=== PATIENT | female | born 1960 | race Caucasian/White ===

== ENCOUNTER → 2019-06-24 11:24 | Outpatient (BNVA) | payer MEDICAID, SELFPAY | PROVIDERS: Family Provider Nurse Practitioner Family; PCP Nurse Practitioner Family; Visit Provider Nurse Practitioner Family | DX: R05 Cough (principal); J06.9 Acute upper respiratory infection, unspecified; G47.30 Sleep apnea, unspecified | CPT/HCPCS: 87880 ==

== ENCOUNTER 2019-06-29 12:00 | Outpatient (CLI) | payer MEDICAID, SELFPAY | END 2019-06-29 12:01 | disposition home or self-care (01) | PROVIDERS: Family Provider Nurse Practitioner Family; PCP Nurse Practitioner Family; Visit Provider Nurse Practitioner Family | DX: G47.30 Sleep apnea, unspecified (principal) | CPT/HCPCS: 94762 ==

== ENCOUNTER → 2019-06-30 15:34 | Outpatient (BNVA) | payer MEDICAID, SELFPAY | PROVIDERS: Family Provider Nurse Practitioner Family; PCP Nurse Practitioner Family; Visit Provider Nurse Practitioner Family | DX: J06.9 Acute upper respiratory infection, unspecified (principal); R05 Cough; E11.42 Type 2 diabetes mellitus with diabetic polyneuropathy | CPT/HCPCS: 87804 ==

== ENCOUNTER → 2019-07-01 13:56 | Outpatient (BNVA) | payer MEDICAID, SELFPAY | PROVIDERS: Family Provider Nurse Practitioner Family; PCP Nurse Practitioner Family; Visit Provider Nurse Practitioner | DX: F43.12 Post-traumatic stress disorder, chronic (principal); F31.81 Bipolar II disorder; F17.218 Nicotine dependence, cigarettes, with other nicotine-induced disorders; G47.30 Sleep apnea, unspecified; F12.20 Cannabis dependence, uncomplicated | CPT/HCPCS: 99213 ==

== ENCOUNTER → 2019-08-25 12:15 | Outpatient (BNVA) | payer MEDICARE, SELFPAY | PROVIDERS: Family Provider Nurse Practitioner Family; PCP Nurse Practitioner Family; Visit Provider Nurse Practitioner Family | DX: E11.22 Type 2 diabetes mellitus with diabetic chronic kidney disease (principal); I12.9 Hypertensive chronic kidney disease with stage 1 through stage 4 chronic kidney disease, or unspecified chronic kidney disease; E78.5 Hyperlipidemia, unspecified; E11.42 Type 2 diabetes mellitus with diabetic polyneuropathy; I10 Essential (primary) hypertension; Z09 Encounter for follow-up examination after completed treatment for conditions other than malignant neoplasm; J44.1 Chronic obstructive pulmonary disease with (acute) exacerbation; E11.65 Type 2 diabetes mellitus with hyperglycemia | CPT/HCPCS: 80053; 80061; 82043; 82044; 83036 ==

== ENCOUNTER → 2019-09-18 08:45 | Outpatient (BNVA) | payer MEDICARE, MEDICAID, SELFPAY | PROVIDERS: Family Provider Nurse Practitioner Family; PCP Nurse Practitioner Family; Visit Provider Nurse Practitioner | DX: F43.12 Post-traumatic stress disorder, chronic (principal); F31.81 Bipolar II disorder | CPT/HCPCS: 99213 ==

== ENCOUNTER → 2019-12-17 11:23 | Outpatient (BNVA) | payer MEDICAID, SELFPAY | PROVIDERS: Family Provider Nurse Practitioner Family; PCP Nurse Practitioner Family; Visit Provider Nurse Practitioner | DX: F43.12 Post-traumatic stress disorder, chronic (principal); F31.81 Bipolar II disorder | CPT/HCPCS: 99214 ==

== ENCOUNTER → 2020-01-15 07:49 | Outpatient (BNVA) | payer MEDICAID, SELFPAY | PROVIDERS: Family Provider Nurse Practitioner Family; PCP Nurse Practitioner Family; Visit Provider Nurse Practitioner | DX: F31.81 Bipolar II disorder (principal); F43.12 Post-traumatic stress disorder, chronic; F17.218 Nicotine dependence, cigarettes, with other nicotine-induced disorders | CPT/HCPCS: 99214 ==

== ENCOUNTER → 2020-01-27 08:52 | Outpatient (BNVA) | payer MEDICAID, SELFPAY | PROVIDERS: Family Provider Nurse Practitioner Family; PCP Nurse Practitioner Family; Visit Provider Counselor Mental Health | DX: Z20.828 Contact with and (suspected) exposure to other viral communicable diseases (principal) | CPT/HCPCS: 87635 ==

== ENCOUNTER 2020-02-08 11:51 | Outpatient (CLI) | payer MEDICARE, MEDICAID, SELFPAY ==
--- NOTE | 2020-02-08 12:05 | MM_ITS ---
WS: [id number] DIAGNOSTIC BILATERAL DIGITAL MAMMOGRAM WITH CAD LEFT breast ultrasound, limited. HISTORY: BREAST LUMP COMPARISON: 12/17/2018 TECHNIQUE: Bilateral craniocaudad, mediolateral oblique, and mediolateral views are submitted. Spot c ompression LEFT CC and MLO. Computer aided detection utilized. Breast composition: There are scattered areas of fibroglandular density. Slightly lobulated high dens ity nodule measuring 9 x 9 mm in the medial inferior LEFT breast. This corresponds to the palpable ab normality without significant increase in size since 12/17/2018. There are additional benign appearing calcifications. LEFT breast ultrasound, limited. Hypoechoic soft tissue nodule at 9:00, 3 cm from the nipple measures 8 x 7 x 10 mm. Mild increased va scularity. No posterior shadowing. MM/[place] [id number] IMPRESSION: BI-RADS: 4-Suspicious Finding-Biopsy Should Be Considered FOLLOW UP: Biopsy Recommended Ultrasound-guided biopsy recommended of the mass at 9:00 LEFT breast. May be a benign fibroadenoma.
--- NOTE | 2020-02-08 12:45 | US_ITS ---
WS: [id number] DIAGNOSTIC BILATERAL DIGITAL MAMMOGRAM WITH CAD LEFT breast ultrasound, limited. HISTORY: BREAST LUMP COMPARISON: 12/17/2018 TECHNIQUE: Bilateral craniocaudad, mediolateral oblique, and mediolateral views are submitted. Spot c ompression LEFT CC and MLO. Computer aided detection utilized. Breast composition: There are scattered areas of fibroglandular density. Slightly lobulated high dens ity nodule measuring 9 x 9 mm in the medial inferior LEFT breast. This corresponds to the palpable ab normality without significant increase in size since 12/17/2018. There are additional benign appearing calcifications. LEFT breast ultrasound, limited. Hypoechoic soft tissue nodule at 9:00, 3 cm from the nipple measures 8 x 7 x 10 mm. Mild increased va scularity. No posterior shadowing. US/US breast LT limited* [id number] IMPRESSION: BI-RADS: 4-Suspicious Finding-Biopsy Should Be Considered FOLLOW UP: Biopsy Recommended Ultrasound-guided biopsy recommended of the mass at 9:00 LEFT breast. May be a benign fibroadenoma.
== END 2020-02-08 11:52 | disposition home or self-care (01) ==
LOC: RADSHAW 11:56
PROVIDERS: PCP Nurse Practitioner Family; Visit Provider Nurse Practitioner Family
DX: N63.32 Unspecified lump in axillary tail of the left breast (principal); F31.81 Bipolar II disorder; Z79.899 Other long term (current) drug therapy
CPT/HCPCS: 76642; 77066; 80061; 83036

== ENCOUNTER 2020-02-18 11:45 | Outpatient (CLI) | payer MEDICARE, MEDICAID, SELFPAY ==
[2020-02-09 09:31] VITALS: BP 135/73; BMI 40.1
--- NOTE | 2020-02-18 13:00 | US_ITS ---
WS: [id number] ULTRASOUND-GUIDED LEFT BREAST BIOPSY CLINICAL INFORMATION: abnormal US COMPARISON: None. FINDINGS: The procedure including risks, benefits, and complications were discussed with the patient who agreed to proceed. Using sterile technique patient was prepped and draped in the usual sterile fashion. Aft er 1% lidocaine utilizing real-time ultrasound guidance 5 14-gauge cores were obtained of the left br east lesion at the 9 o'clock position. Subsequently a titanium clip was placed in the biopsy cavity. No immediate complications. Pathology demonstrates : Breast, left, 9 O' clock, 3 cm from nipple, ultrasound-guided biopsy: -Sclerosing adenosis, myxomatous variant. -Microcalcifications identified. -No malignancy identified. US/[place] [id number] IMPRESSION: 1. Uncomplicated ultrasound-guided left breast biopsy. 2. The pathology demonstrates microcalcifications with sclerosing adenosis. No malignancy identified. RECOMMEND 6 MONTH FOLLOW-UP LEFT BREAST DIAGNOSTIC MAMMOGRAPHY AND ULTRASOUND T O CONFIRM STABILITY BI-RADS: 2-Benign FOLLOW UP: 6 Month Follow-up
== END 2020-02-18 11:46 | disposition home or self-care (01) ==
LOC: RAD 11:49
PROVIDERS: PCP Nurse Practitioner Family; Visit Provider Nurse Practitioner Family
DX: R92.8 Other abnormal and inconclusive findings on diagnostic imaging of breast (principal); N60.22 Fibroadenosis of left breast; R92.1 Mammographic calcification found on diagnostic imaging of breast
CPT/HCPCS: 19083; 88305

== ENCOUNTER → 2020-02-26 07:31 | Outpatient (BNVA) | payer MEDICARE, MEDICAID, SELFPAY ==
[2020-02-09 09:31] VITALS: BP 135/73; BMI 40.1
== END ==
PROVIDERS: PCP Nurse Practitioner Family; Visit Provider Nurse Practitioner
DX: F43.12 Post-traumatic stress disorder, chronic (principal); F31.81 Bipolar II disorder
CPT/HCPCS: 99213

== ENCOUNTER → 2020-03-11 10:15 | Outpatient (BNVA) | payer MEDICAID, SELFPAY ==
[2020-02-09 09:31] VITALS: BP 135/73; BMI 40.1
== END ==
PROVIDERS: PCP Nurse Practitioner Family; Visit Provider Internal Medicine Cardiovascular Disease
DX: I10 Essential (primary) hypertension (principal); I48.0 Paroxysmal atrial fibrillation
CPT/HCPCS: 80048; 83735; 83880

== ENCOUNTER → 2020-03-15 09:54 | Outpatient (BNVA) | payer MEDICARE, MEDICAID, SELFPAY ==
[2020-02-09 09:31] VITALS: BP 135/73; BMI 40.1
== END ==
PROVIDERS: PCP Nurse Practitioner Family; Referring Provider Nurse Practitioner Family; Visit Provider Internal Medicine
DX: D35.00 Benign neoplasm of unspecified adrenal gland (principal); E04.1 Nontoxic single thyroid nodule; E11.42 Type 2 diabetes mellitus with diabetic polyneuropathy; E11.65 Type 2 diabetes mellitus with hyperglycemia; I10 Essential (primary) hypertension; I48.91 Unspecified atrial fibrillation
CPT/HCPCS: 99204

== ENCOUNTER 2020-03-31 15:28 | Outpatient (CLI) | payer MEDICARE, MEDICAID, SELFPAY ==
[2020-02-09 09:31] VITALS: BP 135/73; BMI 40.1
--- NOTE | 2020-03-31 15:45 | USCV_ITS ---
Alissa Beck Age: 59 Gender: F : 1960 Exam Date: 03/31/2020 16:09 Ordering Phys: Anna Alcantara MD ([email or web address]) Technologist: Janice Vicente Exam Location: [facility] – [place] Indication: AFIB BP: / HR: 77 Rhythm: Sinus Technical Quality: Adequate MEASUREMENTS (Male / Female) Normal Values 2D ECHO LV Diastolic Diameter PLAX 5.3 cm 4.2 - 5.9 / 3.9 - 5.3 cm LV Systolic Diameter PLAX 3.8 cm IVS Diastolic Thickness 1.6 cm 0.6 - 1.0 / 0.6 - 0.9 cm IVS Systolic Thickness 1.9 cm LVPW Diastolic Thickness 1.1 cm 0.6 - 1.0 / 0.6 - 0.9 cm LVPW Systolic Thickness 1.5 cm LVOT Diameter 2.0 cm LV Ejection Fraction 2D Teich 53.7 % LV Ejection Fraction MOD 2C 40.1 % LV Ejection Fraction 2C AL 39.5 % LA Diameter 3.4 cm Aorta at Sinotubular Diameter 3.3 cm M-MODE LV Diastolic Diameter MM 6.2 cm 4.2 - 5.9 / 3.9 - 5.3 cm LV Systolic Diameter MM 4.0 cm LV Ejection Fraction MM Teich 64.5 % IVS Diastolic Thickness MM 1.0 cm 0.6 - 1.0 / 0.6 - 0.9 cm IVS Systolic Thickness MM 1.8 cm LVPW Diastolic Thickness MM 1.1 cm 0.6 - 1.0 / 0.6 - 0.9 cm LVPW Systolic Thickness MM 1.7 cm Aortic Annulus Diameter 3.6 cm LA Ao Ratio MM 1.0 MV E Point Septal Separation 0.6 cm DOPPLER AV Peak Velocity 189.0 cm/s LVOT Peak Velocity 126.0 cm/s AV Area Cont Eq vti 2.3 cm squared AV Area Cont Eq pk 2.1 cm squared MV Area PHT 3.3 cm squared Mitral E to A Ratio 0.8 MV E' Velocity 61.0 cm/s Mitral E to MV E' Ratio 16.7 Mitral E to LV E' Lateral Ratio 17.2 Mitral E to LV E' Septal Ratio 16.2 TR Peak Velocity 134.9 cm/s TR Peak Gradient 7.3 mmHg TR Mean Velocity 104.9 cm/s TR Mean Gradient 4.9 mmHg TR Velocity Time Integral 32.8 cm TV Peak E Velocity 65.0 cm/s Right Atrial Pressure 3.0 mmHg Pulmonary Artery Systolic Pressu 10.3 mmHg PV Peak Velocity 71.0 cm/s FINDINGS Left Ventricle Normal left ventricular size, systolic function and wall thickness, with no regional wall motion abnormalities. Left ventricular ejection fraction is estimated at 65 %. Grade II diastolic dysfunction, moderately elevated filling pressures. Right Ventricle Normal right ventricular size and systolic function. Right ventricular systolic pressure 10.3 mmHg. Right Atrium Normal right atrial size. Right atrial pressure estimated at 3 mm Hg. Left Atrium Mildly increased left atrial size. Mitral Valve Mildly thickened mitral valve. Moderate mitral annular calcification. No mitral valve stenosis. Trace mitral valve regurgitation. Aortic Valve Structurally normal trileaflet aortic valve. No aortic valve stenosis. No aortic valve regurgitation. Tricuspid Valve Structurally normal tricuspid valve. No tricuspid valve stenosis. Trace to mild tricuspid valve regurgitation. Pulmonic Valve Pulmonic valve not well visualized. Pericardium No pericardial effusion. Normal sized inferior vena cava. Aorta Normal sized aortic root. CONCLUSIONS 1. Normal left ventricular size, systolic function and wall thickness, with no regional wall motion abnormalities. Left ventricular ejection fraction is estimated at 65 %. Grade II diastolic dysfunction, moderately elevated filling pressures. 2. Normal pulmonary artery pressure. 3. No significant valvular abnormality. 4. When compared to previous study dated 04/16/2015, there may not have been any significant change. Anna Alcantara MD (Electronically Signed) Final Date: 01 April 2020 16:25 S
== END 2020-03-31 15:29 | disposition home or self-care (01) ==
LOC: RAD 15:32
PROVIDERS: PCP Nurse Practitioner Family; Visit Provider Internal Medicine Cardiovascular Disease
DX: I48.0 Paroxysmal atrial fibrillation (principal)
CPT/HCPCS: 93306

== ENCOUNTER → 2020-04-25 07:39 | Outpatient (BNVA) | payer MEDICARE, MEDICAID, SELFPAY ==
[2020-02-09 09:31] VITALS: BP 135/73; BMI 40.1
== END ==
PROVIDERS: PCP Nurse Practitioner Family; Visit Provider Nurse Practitioner
DX: F43.12 Post-traumatic stress disorder, chronic (principal); F31.81 Bipolar II disorder; F17.218 Nicotine dependence, cigarettes, with other nicotine-induced disorders
CPT/HCPCS: 99214

== ENCOUNTER → 2020-05-17 11:32 | Outpatient (BNVA) | payer MEDICARE, MEDICAID, SELFPAY ==
[2020-02-09 09:31] VITALS: BP 135/73; BMI 40.1
== END ==
PROVIDERS: PCP Nurse Practitioner Family; Visit Provider Nurse Practitioner Family
DX: E11.42 Type 2 diabetes mellitus with diabetic polyneuropathy (principal); E11.65 Type 2 diabetes mellitus with hyperglycemia; D35.00 Benign neoplasm of unspecified adrenal gland; E04.1 Nontoxic single thyroid nodule; I10 Essential (primary) hypertension
CPT/HCPCS: 83036

== ENCOUNTER → 2020-06-13 09:40 | Outpatient (BNVA) | payer MEDICARE, MEDICAID, SELFPAY ==
[2020-02-09 09:31] VITALS: BP 135/73; BMI 40.1
== END ==
PROVIDERS: PCP Nurse Practitioner Family; Visit Provider Internal Medicine
DX: D35.02 Benign neoplasm of left adrenal gland (principal); E04.1 Nontoxic single thyroid nodule; E11.42 Type 2 diabetes mellitus with diabetic polyneuropathy; E11.65 Type 2 diabetes mellitus with hyperglycemia
CPT/HCPCS: 99215

== ENCOUNTER → 2020-06-15 15:52 | Outpatient (BNVA) | payer MEDICARE, MEDICAID, SELFPAY ==
[2020-02-09 09:31] VITALS: BP 135/73; BMI 40.1
== END ==
PROVIDERS: PCP Nurse Practitioner Family; Visit Provider Nurse Practitioner Family
DX: R35.0 Frequency of micturition (principal); R31.9 Hematuria, unspecified
CPT/HCPCS: 81000; 87077; 87086; 87184

== ENCOUNTER → 2020-07-07 14:04 | Outpatient (BNVA) | payer MEDICARE, MEDICAID, SELFPAY ==
[2020-02-09 09:31] VITALS: BP 135/73; BMI 40.1
== END ==
PROVIDERS: PCP Nurse Practitioner Family; Visit Provider Nurse Practitioner Family
DX: M54.9 Dorsalgia, unspecified (principal); R31.9 Hematuria, unspecified; N39.0 Urinary tract infection, site not specified; J44.9 Chronic obstructive pulmonary disease, unspecified
CPT/HCPCS: 81000; 87077; 87086; 87184

== ENCOUNTER 2020-07-25 08:32 | Outpatient (CLI) | payer MEDICARE, MEDICAID, SELFPAY ==
[2020-02-09 09:31] VITALS: BP 135/73; BMI 40.1
--- NOTE | 2020-07-25 08:36 | CT_ITS ---
WS: [id number] CT ABDOMEN NON-CONTRAST PLUS CONTRAST TECHNIQUE: Noncontrast CT of the abdomen and contrast-enhanced CT of the abdomen with coronal and sag ittal reformatted images. CLINICAL INFORMATION: adrenal adenoma left COMPARISON: CT July 2014 and February 24, 2013 DLP: 3866.[address] scans at [facility] use at least one of these dose optimization techniques: automat ed exposure control; mA and/or kV adjustment per patient size (includes targeted exams where dose is matched to clinical indication); or iterative reconstruction. FINDINGS: Fat attenuation left adrenal lesion on the noncontrast imaging consistent with lipid rich a drenal adenoma. Noncontrast -5.43 Postcontrast 23.12 15 minute delayed 14.04 Absolute washout 31.8%. Relative washout 39.27%. Left adrenal adenoma measuring 2.7 x 2.2 cm is unchanged. Right adrenal gland is normal. Diffuse fatt y infiltration of the liver. Enlargement of the right hepatic lobe. Mild chronic emphysematous change s. Subsegmental atelectasis in the lung bases. Small esophageal hiatal hernia. Normal pancreas. Prior cholecystectomy. Normal portal vein and spleni c vein. Normal spleen. Normal renal parenchymal enhancement. Right renal cortical atrophy. Right giuliano l cortical atrophy with extrarenal pelvis is unchanged in appearance. Normal caliber abdominal aorta. CT/CT abdomen wo/w con [id number] IMPRESSION: 1. Left adrenal adenoma measuring 2.7 x 2.2 cm is unchanged. 2. Right renal cortical atrophy with prominent extra renal pelvis is unchanged . 3. Diffuse fatty infiltration the liver with hepatomegaly. 4. Prior cholecystectomy.
[2020-07-25] MEDS: iohexol 300 mg/mL 50 mL Btl PO (09:18)
[2020-07-25 09:51] LABS: Blood Urea Nitrogen 18 mg/dL (8-23); Glomerular Filtration Rate 85.4 mL/min (90-130)
[2020-07-25] MEDS: iohexol 300 mg/mL 100 mL Btl IV (10:17)
== END 2020-07-25 08:33 | disposition home or self-care (01) ==
LOC: CT 08:34
PROVIDERS: PCP Nurse Practitioner Family; Visit Provider Internal Medicine
DX: D35.02 Benign neoplasm of left adrenal gland (principal); G31.9 Degenerative disease of nervous system, unspecified; K76.0 Fatty (change of) liver, not elsewhere classified; R16.0 Hepatomegaly, not elsewhere classified; Z90.49 Acquired absence of other specified parts of digestive tract
CPT/HCPCS: 36415; 74170; 82565; 84520

== ENCOUNTER → 2020-08-02 08:02 | Outpatient (BNVA) | payer MEDICARE, MEDICAID, SELFPAY ==
[2020-02-09 09:31] VITALS: BP 135/73; BMI 40.1
== END ==
PROVIDERS: PCP Nurse Practitioner Family; Visit Provider Nurse Practitioner
DX: F43.12 Post-traumatic stress disorder, chronic (principal); F31.81 Bipolar II disorder; F17.218 Nicotine dependence, cigarettes, with other nicotine-induced disorders
CPT/HCPCS: 99214

== ENCOUNTER → 2020-08-08 10:19 | Outpatient (BNVA) | payer MEDICARE, MEDICAID, SELFPAY ==
[2020-02-09 09:31] VITALS: BP 135/73; BMI 40.1
== END ==
PROVIDERS: PCP Nurse Practitioner Family; Visit Provider Nurse Practitioner Family
DX: M54.5 Low back pain (principal); M54.16 Radiculopathy, lumbar region
CPT/HCPCS: 81000

== ENCOUNTER 2020-08-29 08:22 | Outpatient (CLI) | payer MEDICARE, MEDICAID, SELFPAY ==
[2020-02-09 09:31] VITALS: BP 135/73; BMI 40.1
--- NOTE | 2020-08-29 09:06 | MR_ITS ---
WS: [id number] MRI LUMBAR SPINE NONCONTRAST HISTORY: M54.5 - Low back pain COMPARISON: None available. TECHNIQUE: Sagittal and axial multisequence imaging is submitted. Moderate thoracolumbar scoliosis. Marked increase in the lordosis and thoracic kyphosis. Benign durga ngiomas scattered throughout the thoracic and lumbar vertebral bodies. Normal lumbar alignment with no compression fractures or marrow edema. Disc spaces and vertebral body heights are well-preserved. Schmorl's node at L5 is remote. Conus terminates normally at L1-2 disc level. T12-L1: Mild annular disc bulge with focal LEFT paracentral disc protrusion. No stenosis. L1-L2: Mild diffuse annular disc bulge. Moderate LEFT paracentral disc protrusion causing mild deform ity of the thecal sac. Mild narrowing of the LEFT subarticular recess but no significant stenosis. No contact on the nerve roots. L2-L3: Mild annular disc bulge and facet arthritis. L3-L4: Mild annular disc bulge with moderate ligamentum flavum disease and facet arthritis. Very mild flattening and encroachment upon the ventral thecal sac and the L4 nerve roots. No significant steno sis. L4-L5: Diffuse moderate annular disc bulge with a broad-based central disc protrusion. Disc protrusio n is contacting but not displacing the LEFT L5 nerve root. Mild encroachment upon the RIGHT L5 nerve root. Mild central stenosis and minimal bilateral foraminal stenosis. L5-S1: Mild annular disc bulge with a central small disc protrusion with no contact on the nerve root s. Mild facet joint arthritis. There is very mild LEFT foraminal stenosis. Liver is enlarged extending over length of 21.6 cm. Spleen is top normal size. MR/MR lumbar spine wo con* [id number] IMPRESSION: 1. Moderate central disc protrusion at L4-5 contacting but not displacing the LEFT L5 nerve root. Mild central and minimal bilateral foraminal stenosis at th e L4-5 level. 2. Mild LEFT foraminal stenosis at L5-S1 with a small central disc protrusion. 3. Small LEFT paracentral disc protrusion at T12-L1 with no nerve root contact . 4. Moderate LEFT paracentral disc protrusion causing mild deformity encroachme nt upon the LEFT thecal sac and narrowing of the LEFT subarticular recess at L1 -2. 5. Schmorl's node defect at L5 is normal.
== END 2020-08-29 08:23 | disposition home or self-care (01) ==
PROVIDERS: PCP Nurse Practitioner Family; Visit Provider Nurse Practitioner Family
DX: M51.46 Schmorl's nodes, lumbar region (principal); M51.26 Other intervertebral disc displacement, lumbar region; M48.07 Spinal stenosis, lumbosacral region
CPT/HCPCS: 72148

== ENCOUNTER → 2020-09-09 10:24 | Outpatient (BNVA) | payer MEDICARE, MEDICAID, SELFPAY ==
[2020-02-09 09:31] VITALS: BP 135/73; BMI 40.1
== END ==
PROVIDERS: PCP Nurse Practitioner Family; Referring Provider Nurse Practitioner Family; Visit Provider Anesthesiology Pain Medicine
DX: M54.16 Radiculopathy, lumbar region (principal); M47.816 Spondylosis without myelopathy or radiculopathy, lumbar region; M51.36 Other intervertebral disc degeneration, lumbar region; F17.210 Nicotine dependence, cigarettes, uncomplicated; Z79.891 Long term (current) use of opiate analgesic
CPT/HCPCS: 99204

== ENCOUNTER → 2020-09-16 13:44 | Outpatient (BNVA) | payer MEDICARE, MEDICAID, SELFPAY ==
[2020-02-09 09:31] VITALS: BP 135/73; BMI 40.1
== END ==
PROVIDERS: PCP Nurse Practitioner Family; Visit Provider Nurse Practitioner
DX: F31.81 Bipolar II disorder (principal); F43.12 Post-traumatic stress disorder, chronic; F17.218 Nicotine dependence, cigarettes, with other nicotine-induced disorders
CPT/HCPCS: 99214

== ENCOUNTER → 2020-09-21 13:11 | Outpatient (BNVA) | payer MEDICARE, MEDICAID, SELFPAY ==
[2020-02-09 09:31] VITALS: BP 135/73; BMI 40.1
== END ==
PROVIDERS: PCP Nurse Practitioner Family; Visit Provider Anesthesiology Pain Medicine
DX: M47.816 Spondylosis without myelopathy or radiculopathy, lumbar region (principal); M54.16 Radiculopathy, lumbar region; F17.210 Nicotine dependence, cigarettes, uncomplicated; Z79.891 Long term (current) use of opiate analgesic
CPT/HCPCS: 64493; 64494; 64495; J3490

== ENCOUNTER → 2020-10-03 09:04 | Outpatient (BNVA) | payer MEDICARE, MEDICAID, SELFPAY ==
[2020-02-09 09:31] VITALS: BP 135/73; BMI 40.1
== END ==
PROVIDERS: PCP Nurse Practitioner Family; Visit Provider Anesthesiology Pain Medicine
DX: M54.16 Radiculopathy, lumbar region (principal); M47.816 Spondylosis without myelopathy or radiculopathy, lumbar region; M51.36 Other intervertebral disc degeneration, lumbar region; F17.210 Nicotine dependence, cigarettes, uncomplicated; Z79.891 Long term (current) use of opiate analgesic
CPT/HCPCS: 99213

== ENCOUNTER → 2020-10-12 13:36 | Outpatient (BNVA) | payer MEDICARE, MEDICAID, SELFPAY ==
[2020-02-09 09:31] VITALS: BP 135/73; BMI 40.1
== END ==
PROVIDERS: PCP Nurse Practitioner Family; Visit Provider Anesthesiology Pain Medicine
DX: M47.816 Spondylosis without myelopathy or radiculopathy, lumbar region (principal); M54.16 Radiculopathy, lumbar region; F17.210 Nicotine dependence, cigarettes, uncomplicated
CPT/HCPCS: 64493; 64494; 64495; J3490

== ENCOUNTER 2020-10-20 06:41 | Outpatient (CLI) | payer MEDICARE, MEDICAID, SELFPAY ==
[2020-02-09 09:31] VITALS: BP 135/73; BMI 40.1
[2020-10-12 14:39] VITALS: BP 135/73; BMI 40.1
[2020-10-20 07:22] VITALS: BMI 40.6
--- NOTE | 2020-10-20 07:23 | NMCV_ITS ---
NM richie perf SPECT r/s* [id number] Alissa Beck Age: 60 Gender: F : 1960 Exam Date: 10/20/2020 07:52 Ordering Phys: Anna Alcantara MD ([email or web address]) Technologist: RAMESH Acuña Exam Location: [facility] Indications: SHORTNESS OF BREATH STRESS TEST Please see separate stress test report in [facility] for full findings IMAGE PROTOCOL Rest/Stress 1 Lexiscan Day Radiopharmaceutical Dose (mCi) Administration Site Administered by Rest: Tc-99m 10.9 IV RAMESH Arnold Sestamibi Stress:Tc-99m 33.0 IV RAMESH Arnold Sestamibi Rest: 20-Oct-2020 60 Discovery 630 Stress: 20-Oct-2020 30 Discovery 630 0.4mg Lexiscan. Supine position only as patient was unable to lay prone. SPECT RESULTS Technical Quality: Excellent Raw Data Analysis: Breast attenuation, Soft tissue attenuation Image Corrections: No attenuation or motion correction applied Summed Stress Score: 0 Summed Rest Score: 0 Summed Difference Score: 0 PERFUSION FINDINGS Small sized perfusion abnormality of mild severity of apical anterior and apical septal gil on rest and stress images. FUNCTIONAL RESULTS (calculated via Gated SPECT) Stress Image LV EF (%): 74 Stress EDV (mL):144 TID: 1.15 Stress ESV (mL):37 FUNCTIONAL FINDINGS: The left ventricle is normal in size. Transient Ischemia Dilatation of 1.1. There is normal left ventricular systolic function. The left ventricular ejection fraction is normal with a value of 74%. There is normal left ventricular wall thickening with no regional wall motion abnormality. IMPRESSIONS 1. Small sized patchy perfusion abnormality of mild severity of apical anterior and apical septal gil. This likely represent attenuation artifact. 2. Overall left ventricular systolic function is normal without regional wall motion abnormalities. 3. The left ventricular ejection fraction is normal with a value of 74%. 4. No coronary ischemia based on this study. Anna Alcantara MD (Electronically Signed) Final Date: 23 October 2020 21:01 S
--- NOTE | 2020-10-20 07:23 | ECG_ITS ---
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 Interpretive Statements NAME OF STUDY: LEXISCAN SESTAMIBI STRESS TEST INDICATION: Shortness of Breath PROCEDURE: At the baseline, the blood pressure was 135/77 mm Hg with a heart rate of 67 bpm. The electrocardiogram showed normal sinus rhythm with frequent PAC's.Poor anterior R wave progression. ??? The Lexiscan was infused over a period of 20 seconds. A total of 0.4 milligrams of Lexiscan was infused. The stress phase was continued for a total of 5 minutes. Heart rate at the end of the stress phase was 84 bpm with a blood pressure of 147/77 mm Hg. The EKG at the peak infusion revealed sinus rhythm with no significant ST-T wave chnages. ??? Sestamibi was injected 20 seconds after the Lexiscan infusion. ??? Blood pressure at the end of the recovery phase was 155/76 mm Hg with a heart rate of 92 beats per minute. ??? CONCLUSION: 1. No significant EKG changes with the] LexiScan infusion. 2. No LexiScan induced chest pain or cardiac arrhythmia. 3. Normal blood pressure and heart rate response. 4. Sestamibi/sestamibi perfusion scan pending; see separate report. Electronically Signed On 10-25-2020 10:17:57 CDT by Anna Alcantara M.D. [email or web address]
[2020-10-20] MEDS: regadenoson 0.4 Mg/5 ml Syringe IVP (08:26)
[2020-10-20 08:50] VITALS: BP 155/76; PULSE 95
== END 2020-10-20 06:42 | disposition home or self-care (01) ==
PROVIDERS: PCP Nurse Practitioner Family; Visit Provider Internal Medicine Cardiovascular Disease
DX: R06.09 Other forms of dyspnea (principal); R06.02 Shortness of breath
CPT/HCPCS: 78452; 93017; A9500; J2785

== ENCOUNTER → 2020-10-25 09:37 | Outpatient (BNVA) | payer MEDICARE, MEDICAID, SELFPAY ==
[2020-10-12 14:39] VITALS: BP 135/73; BMI 40.1
== END ==
PROVIDERS: PCP Nurse Practitioner Family; Visit Provider Anesthesiology Pain Medicine
DX: M54.16 Radiculopathy, lumbar region (principal); M47.816 Spondylosis without myelopathy or radiculopathy, lumbar region; M51.36 Other intervertebral disc degeneration, lumbar region; F17.210 Nicotine dependence, cigarettes, uncomplicated
CPT/HCPCS: 99214

== ENCOUNTER → 2020-11-03 14:11 | Outpatient (BNVA) | payer MEDICARE, MEDICAID, SELFPAY ==
[2020-10-12 14:39] VITALS: BP 135/73; BMI 40.1
== END ==
PROVIDERS: PCP Nurse Practitioner Family; Visit Provider Nurse Practitioner
DX: F43.12 Post-traumatic stress disorder, chronic (principal); F31.81 Bipolar II disorder; F17.218 Nicotine dependence, cigarettes, with other nicotine-induced disorders
CPT/HCPCS: 99214

== ENCOUNTER → 2020-11-07 12:34 | Outpatient (BNVA) | payer MEDICARE, MEDICAID, SELFPAY ==
[2020-10-12 14:39] VITALS: BP 135/73; BMI 40.1
== END ==
PROVIDERS: PCP Nurse Practitioner Family; Visit Provider Anesthesiology Pain Medicine
DX: M47.816 Spondylosis without myelopathy or radiculopathy, lumbar region (principal); M54.16 Radiculopathy, lumbar region; E11.8 Type 2 diabetes mellitus with unspecified complications; E11.42 Type 2 diabetes mellitus with diabetic polyneuropathy; E11.65 Type 2 diabetes mellitus with hyperglycemia; F17.210 Nicotine dependence, cigarettes, uncomplicated
CPT/HCPCS: 36416; 64635; 64636; 82962

== ENCOUNTER → 2020-12-12 10:16 | Outpatient (BNVA) | payer MEDICARE, MEDICAID, SELFPAY ==
[2020-10-12 14:39] VITALS: BP 135/73; BMI 40.1
== END ==
PROVIDERS: PCP Nurse Practitioner Family; Visit Provider Nurse Practitioner Family
DX: E11.42 Type 2 diabetes mellitus with diabetic polyneuropathy (principal); E11.65 Type 2 diabetes mellitus with hyperglycemia
CPT/HCPCS: 80053; 80061; 83036

== ENCOUNTER → 2021-01-26 13:26 | Outpatient (BNVA) | payer MEDICARE, MEDICAID, SELFPAY ==
[2020-10-12 14:39] VITALS: BP 135/73; BMI 40.1
== END ==
PROVIDERS: PCP Nurse Practitioner Family; Visit Provider Nurse Practitioner
DX: F43.12 Post-traumatic stress disorder, chronic (principal); F31.81 Bipolar II disorder; F17.218 Nicotine dependence, cigarettes, with other nicotine-induced disorders
CPT/HCPCS: 99214

== ENCOUNTER → 2021-01-27 09:50 | Outpatient (BNVA) | payer MEDICARE, MEDICAID, SELFPAY ==
[2020-10-12 14:39] VITALS: BP 135/73; BMI 40.1
== END ==
PROVIDERS: PCP Nurse Practitioner Family; Visit Provider Anesthesiology Pain Medicine
DX: G89.29 Other chronic pain (principal); M48.062 Spinal stenosis, lumbar region with neurogenic claudication; M47.816 Spondylosis without myelopathy or radiculopathy, lumbar region; M51.36 Other intervertebral disc degeneration, lumbar region; M54.16 Radiculopathy, lumbar region
CPT/HCPCS: 99214

== ENCOUNTER 2021-02-01 13:59 | Outpatient (CLI) | payer MEDICARE, MEDICAID, SELFPAY ==
[2020-10-12 14:39] VITALS: BP 135/73; BMI 40.1
[2021-01-27 10:51] VITALS: BP 146/73; BMI 42.8
--- NOTE | 2021-02-01 14:15 | US_ITS ---
WS: [id number] ULTRASOUND THYROID TECHNIQUE: Ultrasound of the thyroid. CLINICAL INFORMATION: nodule COMPARISON: None. FINDINGS: Reported history of prior benign FNA. Thyroid: Diffuse thyroid enlargement. Multinodular thyroid. Right thyroid lobe: 6.2 cm x 1.4 cm x 2.0 cm Complex right thyroid nodule inferior lobe measuring 1.8 x 2.2 x 2.4 cm Left thyroid lobe: 7.7 cm x 3.5 cm x 3.0 cm. Solid left thyroid nodule measuring 2.0 x 2.2 x 2.5 cm the superior pole. Complex cystic and solid nodule in the mid pole measuring 1.6 x 2.8 x 3.0 cm. Solid nodule in the inferior pole measuring 2.4 x 2.4 x 2.4 CM. Isthmus: 7.2 mm. Cervical lymphadenopathy: None. US/US thyroid [id number] IMPRESSION: 1. Multinodular thyroid with diffuse thyroid enlargement. 2. Complex cystic and solid right thyroid nodule measuring 1.8 x 2.2 x 2.4 cm 3. 3 dominant left-sided nodules described above. 4. Recommend 12 month follow-up.
== END 2021-02-01 14:00 | disposition home or self-care (01) ==
PROVIDERS: PCP Nurse Practitioner Family; Visit Provider Internal Medicine
DX: E04.2 Nontoxic multinodular goiter (principal); E04.9 Nontoxic goiter, unspecified
CPT/HCPCS: 76536

== ENCOUNTER → 2021-03-09 07:55 | Outpatient (BNVA) | payer MEDICARE, MEDICAID, SELFPAY ==
[2021-01-27 10:51] VITALS: BP 146/73; BMI 42.8
== END ==
PROVIDERS: PCP Nurse Practitioner Family; Visit Provider Nurse Practitioner
DX: F43.12 Post-traumatic stress disorder, chronic (principal); F31.81 Bipolar II disorder; F17.218 Nicotine dependence, cigarettes, with other nicotine-induced disorders
CPT/HCPCS: 99214

== ENCOUNTER → 2021-03-21 10:12 | Outpatient (BNVA) | payer MEDICARE, MEDICAID, SELFPAY ==
[2021-01-27 10:51] VITALS: BP 146/73; BMI 42.8
== END ==
PROVIDERS: PCP Nurse Practitioner Family; Visit Provider Internal Medicine
DX: D35.02 Benign neoplasm of left adrenal gland (principal); E04.1 Nontoxic single thyroid nodule; E11.42 Type 2 diabetes mellitus with diabetic polyneuropathy; E11.65 Type 2 diabetes mellitus with hyperglycemia; I10 Essential (primary) hypertension
CPT/HCPCS: 80053; 80061; 83036

== ENCOUNTER → 2021-04-20 08:46 | Outpatient (BNVA) | payer MEDICARE, MEDICAID, SELFPAY ==
[2021-01-27 10:51] VITALS: BP 146/73; BMI 42.8
== END ==
PROVIDERS: PCP Nurse Practitioner Family; Visit Provider Nurse Practitioner
DX: F43.12 Post-traumatic stress disorder, chronic (principal); F31.81 Bipolar II disorder; F17.218 Nicotine dependence, cigarettes, with other nicotine-induced disorders
CPT/HCPCS: 99214

== ENCOUNTER → 2021-05-22 10:06 | Outpatient (BNVA) | payer MEDICARE, MEDICAID, SELFPAY ==
[2021-01-27 10:51] VITALS: BP 146/73; BMI 42.8
== END ==
PROVIDERS: PCP Nurse Practitioner Family; Visit Provider Registered Nurse
DX: K59.00 Constipation, unspecified (principal)
CPT/HCPCS: 81000

== ENCOUNTER → 2021-06-01 07:22 | Outpatient (BNVA) | payer MEDICARE, MEDICAID, SELFPAY ==
[2021-01-27 10:51] VITALS: BP 146/73; BMI 42.8
== END ==
PROVIDERS: PCP Nurse Practitioner Family; Visit Provider Nurse Practitioner
DX: F43.12 Post-traumatic stress disorder, chronic (principal); F31.81 Bipolar II disorder; F17.210 Nicotine dependence, cigarettes, uncomplicated
CPT/HCPCS: 99214

== ENCOUNTER → 2021-07-26 07:54 | Outpatient (BNVA) | payer MEDICARE, MEDICAID, OTHER, SELFPAY ==
[2021-01-27 10:51] VITALS: BP 146/73; BMI 42.8
== END ==
PROVIDERS: Visit Provider Nurse Practitioner
DX: F43.12 Post-traumatic stress disorder, chronic (principal); F31.81 Bipolar II disorder; F17.218 Nicotine dependence, cigarettes, with other nicotine-induced disorders; G47.33 Obstructive sleep apnea (adult) (pediatric)
CPT/HCPCS: 99214

== ENCOUNTER → 2021-08-02 15:26 | Outpatient (BNVA) | payer MEDICARE, MEDICAID, SELFPAY ==
[2021-01-27 10:51] VITALS: BP 146/73; BMI 42.8
== END ==
PROVIDERS: PCP Nurse Practitioner Family; Visit Provider Internal Medicine Cardiovascular Disease
DX: Z53.9 Procedure and treatment not carried out, unspecified reason (principal)
CPT/HCPCS: 99213

== ENCOUNTER → 2021-08-08 09:19 | Outpatient (BNVA) | payer MEDICARE, MEDICAID, SELFPAY ==
[2021-01-27 10:51] VITALS: BP 146/73; BMI 42.8
== END ==
PROVIDERS: PCP Nurse Practitioner Family; Visit Provider Nurse Practitioner Family
DX: R30.0 Dysuria (principal)
CPT/HCPCS: 81000; 87077; 87086; 87184

== ENCOUNTER → 2021-08-16 15:32 | Outpatient (BNVA) | payer MEDICARE, MEDICAID, SELFPAY ==
[2021-01-27 10:51] VITALS: BP 146/73; BMI 42.8
== END ==
PROVIDERS: PCP Nurse Practitioner Family; Visit Provider Nurse Practitioner Family
DX: N39.0 Urinary tract infection, site not specified (principal); E55.9 Vitamin D deficiency, unspecified; R53.83 Other fatigue
CPT/HCPCS: 81000

== ENCOUNTER → 2021-08-23 07:20 | Outpatient (BNVA) | payer MEDICARE, MEDICAID, OTHER, SELFPAY ==
[2021-01-27 10:51] VITALS: BP 146/73; BMI 42.8
== END ==
PROVIDERS: PCP Nurse Practitioner Family; Visit Provider Nurse Practitioner
DX: F43.12 Post-traumatic stress disorder, chronic (principal); F31.81 Bipolar II disorder; F17.218 Nicotine dependence, cigarettes, with other nicotine-induced disorders; G47.33 Obstructive sleep apnea (adult) (pediatric)
CPT/HCPCS: 99214

== ENCOUNTER → 2021-10-03 09:19 | Outpatient (BNVA) | payer MEDICARE, MEDICAID, SELFPAY ==
[2021-01-27 10:51] VITALS: BP 146/73; BMI 42.8
== END ==
PROVIDERS: PCP Nurse Practitioner Family; Visit Provider Nurse Practitioner Family
DX: R31.9 Hematuria, unspecified (principal); N39.0 Urinary tract infection, site not specified
CPT/HCPCS: 87077; 87086; 87184

== ENCOUNTER → 2021-10-04 07:23 | Outpatient (BNVA) | payer MEDICARE, MEDICAID, SELFPAY ==
[2021-01-27 10:51] VITALS: BP 146/73; BMI 42.8
== END ==
PROVIDERS: PCP Nurse Practitioner Family; Visit Provider Nurse Practitioner
DX: F43.12 Post-traumatic stress disorder, chronic (principal); F31.81 Bipolar II disorder; F17.218 Nicotine dependence, cigarettes, with other nicotine-induced disorders
CPT/HCPCS: 99214

== ENCOUNTER → 2021-10-11 10:57 | Outpatient (BNVA) | payer MEDICARE, MEDICAID, SELFPAY ==
[2021-01-27 10:51] VITALS: BP 146/73; BMI 42.8
== END ==
PROVIDERS: PCP Nurse Practitioner Family; Visit Provider Nurse Practitioner Family
DX: R31.9 Hematuria, unspecified (principal); I10 Essential (primary) hypertension; E55.9 Vitamin D deficiency, unspecified; E03.9 Hypothyroidism, unspecified
CPT/HCPCS: 80053; 82306; 84443; 85025; 87086

== ENCOUNTER → 2021-10-17 13:58 | Outpatient (BNVA) | payer MEDICARE, MEDICAID, SELFPAY ==
[2021-01-27 10:51] VITALS: BP 146/73; BMI 42.8
== END ==
PROVIDERS: PCP Nurse Practitioner Family; Visit Provider Internal Medicine
DX: E11.42 Type 2 diabetes mellitus with diabetic polyneuropathy (principal); E11.65 Type 2 diabetes mellitus with hyperglycemia; D35.02 Benign neoplasm of left adrenal gland; E04.1 Nontoxic single thyroid nodule; I10 Essential (primary) hypertension; F17.210 Nicotine dependence, cigarettes, uncomplicated; Z79.84 Long term (current) use of oral hypoglycemic drugs; Z79.4 Long term (current) use of insulin
CPT/HCPCS: 99214

== ENCOUNTER → 2021-10-31 13:51 | Outpatient (BNVA) | payer MEDICARE, MEDICAID, SELFPAY ==
[2021-10-31 12:32] VITALS: BP 146/73; BMI 42.8
== END ==
PROVIDERS: PCP Nurse Practitioner Family; Visit Provider Nurse Practitioner
DX: F43.12 Post-traumatic stress disorder, chronic (principal); F31.81 Bipolar II disorder; F17.218 Nicotine dependence, cigarettes, with other nicotine-induced disorders; F12.20 Cannabis dependence, uncomplicated
CPT/HCPCS: 99214

== ENCOUNTER 2021-11-01 08:51 | Outpatient (CLI) | payer MEDICARE, MEDICAID, SELFPAY ==
[2021-10-31 12:32] VITALS: BP 146/73; BMI 42.8
--- NOTE | 2021-11-01 09:00 | XR_ITS ---
WS: [id number] Exam: XR KUB [id number] Date/Time of Exam: 11/01/2021 9:02 AM Reason For Exam: STONE No bowel obstruction or free air. Moderate amount stool in the colon. No sign of organ enlargement. S igns of prior cholecystectomy. Degenerative changes of the lumbar spine and hips. XR/XR KUB [id number] IMPRESSION: 1. No acute abdominal process.
== END 2021-11-01 08:52 | disposition home or self-care (01) ==
LOC: RAD 08:54
PROVIDERS: PCP Nurse Practitioner Family; Visit Provider Urology
DX: N20.0 Calculus of kidney (principal); R31.0 Gross hematuria; N30.20 Other chronic cystitis without hematuria; N26.1 Atrophy of kidney (terminal); N13.5 Crossing vessel and stricture of ureter without hydronephrosis
CPT/HCPCS: 52000; 74018; 81003; 87077; 87086; 87186; 99204

== ENCOUNTER → 2021-12-04 11:17 | Outpatient (BNVA) | payer MEDICAID, SELFPAY ==
[2021-10-31 12:32] VITALS: BP 146/73; BMI 42.8
== END ==
PROVIDERS: PCP Nurse Practitioner Family; Visit Provider Nurse Practitioner Family
DX: E55.9 Vitamin D deficiency, unspecified (principal); E11.42 Type 2 diabetes mellitus with diabetic polyneuropathy; E11.65 Type 2 diabetes mellitus with hyperglycemia
CPT/HCPCS: 82306; 83036

== ENCOUNTER 2022-01-12 09:08 | Outpatient (CLI) | payer MEDICARE, MEDICAID, SELFPAY ==
[2021-10-31 12:32] VITALS: BP 146/73; BMI 42.8
--- NOTE | 2022-01-12 09:30 | US_ITS ---
WS: [id number] RENAL ULTRASOUND HISTORY: R31.9 - Hematuria, unspecified COMPARISON: 10/11/2021 TECHNIQUE: 2-D and color Doppler imaging of the kidney submitted. Right kidney: 10.4 cm x 5.6 cm x 4.5 cm. Normal size kidney. There is mild diffuse cortical thinning throughout the kidney. Asymmetric thinnin g greatest in the upper pole. No hydronephrosis. No calcification identified. Left kidney: 14.1 cm x 5.8 cm x 5.3 cm. Normal echogenicity with no hydronephrosis or mass. Aorta: Normal. Urinary Bladder: Normal distention. US/US renal BI* [id number] IMPRESSION: 1. No hydronephrosis. 2. Diffuse cortical thinning asymmetrically increased in the upper pole RIGHT kidney. Similar to the prior examination from 10/11/2021. No calcification or mas s identified.
== END 2022-01-12 09:09 | disposition home or self-care (01) ==
PROVIDERS: PCP Nurse Practitioner Family; Visit Provider Nurse Practitioner Family
DX: R31.9 Hematuria, unspecified (principal)
CPT/HCPCS: 76770

== ENCOUNTER → 2022-01-24 13:57 | Outpatient (BNVA) | payer MEDICARE, MEDICAID, OTHER, SELFPAY ==
[2021-10-31 12:32] VITALS: BP 146/73; BMI 42.8
== END ==
PROVIDERS: PCP Nurse Practitioner Family; Visit Provider Nurse Practitioner Family
DX: R53.83 Other fatigue (principal); I48.0 Paroxysmal atrial fibrillation; G47.33 Obstructive sleep apnea (adult) (pediatric); G56.00 Carpal tunnel syndrome, unspecified upper limb
CPT/HCPCS: 84439; 84443; 84481; 85025

== ENCOUNTER → 2022-01-30 08:06 | Outpatient (BNVA) | payer MEDICARE, MEDICAID, SELFPAY ==
[2021-10-31 12:32] VITALS: BP 146/73; BMI 42.8
== END ==
PROVIDERS: PCP Nurse Practitioner Family; Visit Provider Urology
DX: N30.20 Other chronic cystitis without hematuria (principal); R31.9 Hematuria, unspecified; N13.5 Crossing vessel and stricture of ureter without hydronephrosis
CPT/HCPCS: 51798; 87086; 99213

== ENCOUNTER → 2022-02-05 08:51 | Outpatient (BNVA) | payer MEDICARE, MEDICAID, SELFPAY ==
[2021-10-31 12:32] VITALS: BP 146/73; BMI 42.8
== END ==
PROVIDERS: PCP Nurse Practitioner Family; Visit Provider Urology
DX: N30.20 Other chronic cystitis without hematuria (principal); R31.9 Hematuria, unspecified; N13.5 Crossing vessel and stricture of ureter without hydronephrosis
CPT/HCPCS: 81003

== ENCOUNTER 2022-02-14 14:00 | Outpatient (CLI) | payer MEDICARE, MEDICAID, SELFPAY ==
[2022-02-14 10:47] VITALS: BP 146/73; BMI 42.8
== END 2022-02-14 14:01 | disposition home or self-care (01) ==
LOC: SLEEP 02-15 13:34
PROVIDERS: PCP Nurse Practitioner Family; Visit Provider Nurse Practitioner Family
DX: G47.33 Obstructive sleep apnea (adult) (pediatric) (principal)
CPT/HCPCS: 94762

== ENCOUNTER → 2022-02-15 14:32 | Outpatient (BNVA) | payer MEDICARE, MEDICAID, SELFPAY ==
[2022-02-15 15:31] VITALS: BP 146/73; BMI 42.8
== END ==
PROVIDERS: PCP Nurse Practitioner Family; Visit Provider Internal Medicine
DX: E11.42 Type 2 diabetes mellitus with diabetic polyneuropathy (principal); E11.65 Type 2 diabetes mellitus with hyperglycemia; E78.5 Hyperlipidemia, unspecified; I10 Essential (primary) hypertension; D35.02 Benign neoplasm of left adrenal gland; E04.1 Nontoxic single thyroid nodule; Z79.4 Long term (current) use of insulin; Z79.84 Long term (current) use of oral hypoglycemic drugs; F17.210 Nicotine dependence, cigarettes, uncomplicated
CPT/HCPCS: 99214

== ENCOUNTER → 2022-03-19 14:28 | Outpatient (BNVA) | payer MEDICARE, MEDICAID, SELFPAY ==
[2022-02-15 15:31] VITALS: BP 146/73; BMI 42.8
== END ==
PROVIDERS: PCP Nurse Practitioner Family; Visit Provider Urology
DX: N30.20 Other chronic cystitis without hematuria (principal); N13.5 Crossing vessel and stricture of ureter without hydronephrosis
CPT/HCPCS: 81003; 99213

== ENCOUNTER → 2022-04-10 13:53 | Outpatient (BNVA) | payer MEDICARE, MEDICAID, SELFPAY ==
[2022-02-15 15:31] VITALS: BP 146/73; BMI 42.8
== END ==
PROVIDERS: PCP Nurse Practitioner Family; Referring Provider Nurse Practitioner Family; Visit Provider Specialist
DX: G58.7 Mononeuritis multiplex (principal)
CPT/HCPCS: 95908; 95910

== ENCOUNTER → 2022-05-15 15:08 | Outpatient (BNVA) | payer MEDICARE, MEDICAID, SELFPAY ==
[2022-02-15 15:31] VITALS: BP 146/73; BMI 42.8
== END ==
PROVIDERS: PCP Nurse Practitioner Family; Visit Provider Internal Medicine Cardiovascular Disease
DX: R06.00 Dyspnea, unspecified (principal); I48.0 Paroxysmal atrial fibrillation; I10 Essential (primary) hypertension; F17.218 Nicotine dependence, cigarettes, with other nicotine-induced disorders
CPT/HCPCS: 99214; Q3014

== ENCOUNTER → 2022-06-07 13:11 | Outpatient (BNVA) | payer MEDICARE, MEDICAID, SELFPAY ==
[2022-02-15 15:31] VITALS: BP 146/73; BMI 42.8
== END ==
PROVIDERS: PCP Nurse Practitioner Family; Referring Provider Nurse Practitioner Family; Visit Provider Specialist
DX: E11.41 Type 2 diabetes mellitus with diabetic mononeuropathy (principal); G58.7 Mononeuritis multiplex; Z79.4 Long term (current) use of insulin; Z79.84 Long term (current) use of oral hypoglycemic drugs; F17.218 Nicotine dependence, cigarettes, with other nicotine-induced disorders
CPT/HCPCS: 95860; 95886; 99202

== ENCOUNTER → 2022-06-08 08:21 | Outpatient (BNVA) | payer MEDICARE, MEDICAID, SELFPAY ==
[2022-02-15 15:31] VITALS: BP 146/73; BMI 42.8
== END ==
PROVIDERS: PCP Nurse Practitioner Family; Visit Provider Specialist
DX: E11.42 Type 2 diabetes mellitus with diabetic polyneuropathy (principal); E11.65 Type 2 diabetes mellitus with hyperglycemia; G58.7 Mononeuritis multiplex; G47.19 Other hypersomnia
CPT/HCPCS: 85651; 86140; 86160; 86162; 86235; 86255; 86376; 86431

== ENCOUNTER 2022-06-27 09:28 | Outpatient (CLI) | payer MEDICARE, MEDICAID, SELFPAY ==
[2022-02-15 15:31] VITALS: BP 146/73; BMI 42.8
--- NOTE | 2022-06-27 09:45 | CT_ITS ---
WS: [id number] LDCT LUNG CANCER SCREENING HISTORY: F17.218 - Nicotine dependence, cigarettes TECHNIQUE: Axial imaging performed from the apices to 1 cm below the costophrenic angles. Coronal and sagittal reformats are submitted with axial MIP series. All CT scans at [facility] use at least one of these dose optimization techniques: automated exposure control; mA and/or kV adjustment per patient size (includes targeted exams where dose is matched to clinical indication); or iterativ e reconstruction. DLP: 81.47 mGy.cm DIvol: Mean CTDIvol: 1.60 (mGy) COMPARISON: None available. Diagnostic quality: Moderate motion artifact from breathing. Lung Nodules: No nodules or endobronchial lesions are identified. Small nodules would be easily obscu red and not detected with this amount of breathing artifact. Lungs: Hyperinflated lungs with emphysema. There is mild bilateral bronchial wall thickening. Heart: Normal size. Dense calcification along the mitral valve plane. Mild coronary artery atheroscle rosis. Other findings: Enlarged thyroid extends substernal. CT/CT lung screening [id number] IMPRESSION: LUNG-RADS: 1-Negative FOLLOW UP: 12 Month: Continue annual screening with LDCT OTHER FINDINGS (S MODIFIER): None.
== END 2022-06-27 09:29 | disposition home or self-care (01) ==
PROVIDERS: PCP Nurse Practitioner Family; Visit Provider Specialist
DX: Z12.2 Encounter for screening for malignant neoplasm of respiratory organs (principal); F17.218 Nicotine dependence, cigarettes, with other nicotine-induced disorders
CPT/HCPCS: 71271

== ENCOUNTER → 2022-08-28 14:31 | Outpatient (BNVA) | payer MEDICARE, MEDICAID, SELFPAY ==
[2022-02-15 15:31] VITALS: BP 146/73; BMI 42.8
== END ==
PROVIDERS: PCP Nurse Practitioner Family; Visit Provider Nurse Practitioner Family
DX: N39.0 Urinary tract infection, site not specified (principal); R53.83 Other fatigue
CPT/HCPCS: 81000; 87077; 87086; 87184

== ENCOUNTER → 2022-09-12 12:49 | Outpatient (BNVA) | payer MEDICARE, MEDICAID, SELFPAY ==
[2022-09-12 10:56] VITALS: BP 146/73; BMI 42.8
== END ==
PROVIDERS: PCP Nurse Practitioner Family; Visit Provider Internal Medicine
DX: J44.0 Chronic obstructive pulmonary disease with (acute) lower respiratory infection (principal); R76.8 Other specified abnormal immunological findings in serum; G58.7 Mononeuritis multiplex; F43.12 Post-traumatic stress disorder, chronic; I10 Essential (primary) hypertension; D35.00 Benign neoplasm of unspecified adrenal gland; E55.9 Vitamin D deficiency, unspecified; R53.83 Other fatigue; M45.0 Ankylosing spondylitis of multiple sites in spine; I48.0 Paroxysmal atrial fibrillation
CPT/HCPCS: 36415; 73120; 81001; 82550; 82595; 82607; 83516; 84155; 84165; 84443; 85613; 85651; 85730; 86036; 86146; 86147; 86200; 86431; 86480; 86618; 86666; 86704; 86757; 86803; 86812; 87340; 87806; 99204

== ENCOUNTER → 2022-09-17 13:26 | Outpatient (BNVA) | payer MEDICARE, MEDICAID, SELFPAY ==
[2022-09-12 10:56] VITALS: BP 146/73; BMI 42.8
== END ==
PROVIDERS: PCP Nurse Practitioner Family; Visit Provider Nurse Practitioner Family
DX: L08.9 Local infection of the skin and subcutaneous tissue, unspecified (principal); R39.9 Unspecified symptoms and signs involving the genitourinary system; L03.115 Cellulitis of right lower limb; N39.0 Urinary tract infection, site not specified
CPT/HCPCS: 81000; 87077; 87086; 87184

== ENCOUNTER → 2022-09-18 08:02 | Outpatient (BNVA) | payer MEDICARE, MEDICAID, SELFPAY ==
[2022-09-12 10:56] VITALS: BP 146/73; BMI 42.8
== END ==
PROVIDERS: PCP Nurse Practitioner Family; Visit Provider Nurse Practitioner Family
DX: E11.622 Type 2 diabetes mellitus with other skin ulcer (principal); L97.912 Non-pressure chronic ulcer of unspecified part of right lower leg with fat layer exposed; Z79.4 Long term (current) use of insulin; Z79.84 Long term (current) use of oral hypoglycemic drugs
CPT/HCPCS: 11042; 99213

== ENCOUNTER 2022-09-25 15:09 | Outpatient (CLI) | payer MEDICARE, MEDICAID, SELFPAY ==
[2022-09-12 10:56] VITALS: BP 146/73; BMI 42.8
--- NOTE | 2022-09-25 15:23 | XRR_ITS ---
PROCEDURE INFORMATION: Exam: XR Right Tibia and Fibula Exam date and time: 09/25/2022 3:37 PM Age: 62 years old Clinical indication: Injury or trauma; Other: Metal hit patient in leg; Laceration; Lower leg; Right; Foreign body involvement not specified; Injury date: 2 weeks ago; Additional info: R/O osteo, right lower leg TECHNIQUE: Imaging protocol: Radiologic exam of the right tibia and fibula. Views: 2 views. COMPARISON: No relevant prior studies available. FINDINGS: Bones/joints: Laceration over the mid to distal anterior tibia without radiodense foreign body or acute bony abnormality. Distal Achilles tendon degenerative calcification. Soft tissues: See Bones/joints finding. XR/XR tibia fibula RT 2V [id number] IMPRESSION: 1. Laceration over the mid to distal anterior tibia without radiodense foreign body or acute bony abnormality. 2. Distal Achilles tendon degenerative calcification.
== END 2022-09-25 15:10 | disposition home or self-care (01) ==
LOC: RAD 15:17
PROVIDERS: PCP Nurse Practitioner Family; Visit Provider Nurse Practitioner Family
DX: E11.622 Type 2 diabetes mellitus with other skin ulcer (principal)
CPT/HCPCS: 11042; 73590

== ENCOUNTER → 2022-10-02 14:42 | Outpatient (BNVA) | payer MEDICARE, MEDICAID, SELFPAY ==
[2022-09-12 10:56] VITALS: BP 146/73; BMI 42.8
== END ==
PROVIDERS: PCP Nurse Practitioner Family; Visit Provider Nurse Practitioner Family
DX: E11.622 Type 2 diabetes mellitus with other skin ulcer (principal); I96 Gangrene, not elsewhere classified; L97.812 Non-pressure chronic ulcer of other part of right lower leg with fat layer exposed
CPT/HCPCS: 11042

== ENCOUNTER → 2022-10-09 14:48 | Outpatient (BNVA) | payer MEDICARE, MEDICAID, SELFPAY ==
[2022-09-12 10:56] VITALS: BP 146/73; BMI 42.8
== END ==
PROVIDERS: PCP Nurse Practitioner Family; Visit Provider Nurse Practitioner Family
DX: I96 Gangrene, not elsewhere classified (principal); E11.622 Type 2 diabetes mellitus with other skin ulcer; L97.812 Non-pressure chronic ulcer of other part of right lower leg with fat layer exposed
CPT/HCPCS: 11042; 87070; 87077; 87176; 87186; 87205

== ENCOUNTER → 2022-10-16 14:15 | Outpatient (BNVA) | payer MEDICARE, MEDICAID, SELFPAY ==
[2022-09-12 10:56] VITALS: BP 146/73; BMI 42.8
== END ==
PROVIDERS: PCP Nurse Practitioner Family; Visit Provider Nurse Practitioner Family
DX: I96 Gangrene, not elsewhere classified (principal); E11.622 Type 2 diabetes mellitus with other skin ulcer; L97.812 Non-pressure chronic ulcer of other part of right lower leg with fat layer exposed
CPT/HCPCS: 11042

== ENCOUNTER → 2022-10-22 10:01 | Outpatient (BNVA) | payer MEDICARE, MEDICAID, SELFPAY ==
[2022-09-12 10:56] VITALS: BP 146/73; BMI 42.8
== END ==
PROVIDERS: PCP Nurse Practitioner Family; Visit Provider Nurse Practitioner Family
DX: N39.0 Urinary tract infection, site not specified (principal)
CPT/HCPCS: 87077; 87086; 87184

== ENCOUNTER → 2022-10-23 13:36 | Outpatient (BNVA) | payer MEDICARE, MEDICAID, SELFPAY ==
[2022-09-12 10:56] VITALS: BP 146/73; BMI 42.8
== END ==
PROVIDERS: PCP Nurse Practitioner Family; Visit Provider Nurse Practitioner Family
DX: E11.52 Type 2 diabetes mellitus with diabetic peripheral angiopathy with gangrene (principal); L97.812 Non-pressure chronic ulcer of other part of right lower leg with fat layer exposed
CPT/HCPCS: 11042

== ENCOUNTER → 2022-10-24 08:48 | Outpatient (BNVA) | payer MEDICARE, MEDICAID, SELFPAY ==
[2022-09-12 10:56] VITALS: BP 146/73; BMI 42.8
== END ==
PROVIDERS: PCP Nurse Practitioner Family; Visit Provider Internal Medicine
DX: G58.7 Mononeuritis multiplex (principal); G47.19 Other hypersomnia; R05.9 Cough, unspecified; R76.8 Other specified abnormal immunological findings in serum; R29.898 Other symptoms and signs involving the musculoskeletal system; L08.9 Local infection of the skin and subcutaneous tissue, unspecified
CPT/HCPCS: 99214

== ENCOUNTER → 2022-10-25 10:36 | Outpatient (BNVA) | payer MEDICARE, MEDICAID, SELFPAY ==
[2022-09-12 10:56] VITALS: BP 146/73; BMI 42.8
== END ==
PROVIDERS: PCP Nurse Practitioner Family; Visit Provider Nurse Practitioner Family
DX: R10.9 Unspecified abdominal pain (principal); N39.0 Urinary tract infection, site not specified
CPT/HCPCS: 81000; 87077; 87086; 87184

== ENCOUNTER → 2022-10-30 13:09 | Outpatient (BNVA) | payer MEDICARE, MEDICAID, SELFPAY ==
[2022-09-12 10:56] VITALS: BP 146/73; BMI 42.8
== END ==
PROVIDERS: PCP Nurse Practitioner Family; Visit Provider Nurse Practitioner Family
DX: E11.52 Type 2 diabetes mellitus with diabetic peripheral angiopathy with gangrene (principal); L97.812 Non-pressure chronic ulcer of other part of right lower leg with fat layer exposed
CPT/HCPCS: 11042; A6212

== ENCOUNTER → 2022-11-19 15:40 | Outpatient (BNVA) | payer MEDICARE, MEDICAID, SELFPAY ==
[2022-09-12 10:56] VITALS: BP 146/73; BMI 42.8
== END ==
PROVIDERS: PCP Nurse Practitioner Family; Visit Provider Internal Medicine Cardiovascular Disease
DX: I48.0 Paroxysmal atrial fibrillation (principal); R06.00 Dyspnea, unspecified; G47.19 Other hypersomnia; G58.7 Mononeuritis multiplex; M51.36 Other intervertebral disc degeneration, lumbar region; R05.9 Cough, unspecified; R06.09 Other forms of dyspnea; I11.0 Hypertensive heart disease with heart failure; I50.9 Heart failure, unspecified; E11.42 Type 2 diabetes mellitus with diabetic polyneuropathy; G47.33 Obstructive sleep apnea (adult) (pediatric); F17.218 Nicotine dependence, cigarettes, with other nicotine-induced disorders
CPT/HCPCS: 36415; 82550; 84155; 84165; 85613; 85651; 85730; 86140; 86146; 86147; 99214

== ENCOUNTER → 2022-11-20 13:42 | Outpatient (BNVA) | payer MEDICARE, MEDICAID, SELFPAY ==
[2022-09-12 10:56] VITALS: BP 146/73; BMI 42.8
== END ==
PROVIDERS: PCP Nurse Practitioner Family; Visit Provider Nurse Practitioner Family
DX: E11.52 Type 2 diabetes mellitus with diabetic peripheral angiopathy with gangrene (principal); L97.812 Non-pressure chronic ulcer of other part of right lower leg with fat layer exposed
CPT/HCPCS: 11042; A6197; A6252

== ENCOUNTER → 2022-11-27 14:13 | Outpatient (BNVA) | payer MEDICARE, MEDICAID, SELFPAY ==
[2022-09-12 10:56] VITALS: BP 146/73; BMI 42.8
== END ==
PROVIDERS: PCP Nurse Practitioner Family; Visit Provider Nurse Practitioner Family
DX: E11.52 Type 2 diabetes mellitus with diabetic peripheral angiopathy with gangrene (principal); L97.812 Non-pressure chronic ulcer of other part of right lower leg with fat layer exposed
CPT/HCPCS: 97597; A6197; A6219; A6251

== ENCOUNTER → 2022-12-03 13:06 | Outpatient (BNVA) | payer MEDICARE, MEDICAID, SELFPAY ==
[2022-09-12 10:56] VITALS: BP 146/73; BMI 42.8
== END ==
PROVIDERS: PCP Nurse Practitioner Family; Visit Provider Nurse Practitioner Family
DX: I11.0 Hypertensive heart disease with heart failure (principal); I50.9 Heart failure, unspecified; I48.0 Paroxysmal atrial fibrillation; Z79.01 Long term (current) use of anticoagulants; F17.210 Nicotine dependence, cigarettes, uncomplicated; R07.89 Other chest pain
CPT/HCPCS: 36415; 80048; 83880; 99214

== ENCOUNTER → 2022-12-04 15:11 | Outpatient (BNVA) | payer MEDICARE, MEDICAID, SELFPAY ==
[2022-09-12 10:56] VITALS: BP 146/73; BMI 42.8
== END ==
PROVIDERS: PCP Nurse Practitioner Family; Visit Provider Nurse Practitioner Family
DX: E11.52 Type 2 diabetes mellitus with diabetic peripheral angiopathy with gangrene (principal); L97.812 Non-pressure chronic ulcer of other part of right lower leg with fat layer exposed
CPT/HCPCS: 97597

== ENCOUNTER 2022-12-10 13:51 | Outpatient (CLI) | payer MEDICARE, MEDICAID, SELFPAY ==
[2022-09-12 10:56] VITALS: BP 146/73; BMI 42.8
--- NOTE | 2022-12-10 14:15 | USCV_ITS ---
Alissa Beck Age: 62 Gender: F : 1960 Exam Date: 12/10/2022 14:46 Ordering Phys: Anna Alcantara MD ([email or web address]) Technologist: NUBIA [place]am [place] [facility] [place] Indication: CHRONIC HEART FAILURE, SHORTNESS OF BREATH BP: 142 / 70 HR: 52 Rhythm: Sinus Technical Quality: Adequate MEASUREMENTS (Male / Female) Normal Values 2D ECHO LVOT Diameter 2.0 cm LV Ejection Fraction MOD 2C 66.9 % LV Ejection Fraction 2C AL 68.5 % LA Diameter 3.4 cm LA Width 3.8 cm LA Height 4.8 cm RA Width 3.9 cm RA Height 4.3 cm Aorta at Sinotubular Diameter 2.8 cm IVC Diameter 2.9 cm M-MODE Aortic Annulus Diameter 2.9 cm LA Ao Ratio MM 1.1 MV E Point Septal Separation 0.8 cm DOPPLER AV Peak Velocity 176.0 cm/s LVOT Peak Velocity 167.0 cm/s AV Area Cont Eq vti 3.2 cm squared AV Area Cont Eq pk 3.0 cm squared MV Peak Velocity 135.0 cm/s MV Area PHT 3.0 cm squared Mitral E to A Ratio 1.2 MV E' Velocity 64.0 cm/s Mitral E to MV E' Ratio 14.8 Mitral E to LV E' Lateral Ratio 15.4 Mitral E to LV E' Septal Ratio 14.3 TR Peak Velocity 149.8 cm/s TR Peak Gradient 9.0 mmHg TR Mean Velocity 118.9 cm/s TR Mean Gradient 6.1 mmHg TR Velocity Time Integral 48.5 cm TV Peak E Velocity 44.0 cm/s Right Atrial Pressure 8.0 mmHg Pulmonary Artery Systolic Pressu 17.0 mmHg PV Peak Velocity 93.0 cm/s FINDINGS Left Ventricle Normal left ventricular size, systolic function and wall thickness, with no regional wall motion abnormalities. Left ventricular ejection fraction is estimated at 65 %. Grade II diastolic dysfunction, moderately elevated filling pressures. Right Ventricle Normal right ventricular size and systolic function. RVSP could not be calculated due to incomplete tricuspid regurgitation velocity profile. Right Atrium Normal right atrial size. Right atrial pressure estimated at 8 mmHg. Left Atrium Normal left atrial size. Mitral Valve Severe mitral annular calcification. No mitral valve stenosis. No mitral valve regurgitation. Aortic Valve Aortic valve not well visualized. No aortic valve stenosis. No aortic valve regurgitation. Tricuspid Valve Structurally normal tricuspid valve. Trace tricuspid valve regurgitation. Pulmonic Valve Pulmonic valve not well visualized. Pericardium No pericardial effusion. Aorta Normal size aortic root and proximal ascending aorta. IVC Dilated IVC with normal respiratory variation. CONCLUSIONS 1. Normal left ventricular size, systolic function and wall thickness, with no regional wall motion abnormalities. Left ventricular ejection fraction is estimated at 65 %. Grade II diastolic dysfunction, moderately elevated filling pressures. 2. Dilated IVC with normal respiratory variation. 3 No significant change when compared to study dated 04/01/2020. Anna Alcantara MD (Electronically Signed) Final Date: 11 December 2022 17:20 S
== END 2022-12-10 13:52 | disposition home or self-care (01) ==
PROVIDERS: PCP Nurse Practitioner Family; Visit Provider Internal Medicine Cardiovascular Disease
DX: I50.9 Heart failure, unspecified (principal)
CPT/HCPCS: 11042; 93306; A6197; A6252

== ENCOUNTER → 2022-12-11 14:50 | Outpatient (BNVA) | payer MEDICARE, MEDICAID, SELFPAY ==
[2022-09-12 10:56] VITALS: BP 146/73; BMI 42.8
== END ==
PROVIDERS: PCP Nurse Practitioner Family; Visit Provider Nurse Practitioner Family
DX: E11.52 Type 2 diabetes mellitus with diabetic peripheral angiopathy with gangrene (principal); L97.812 Non-pressure chronic ulcer of other part of right lower leg with fat layer exposed
CPT/HCPCS: 11042; A6197; A6252

== ENCOUNTER → 2022-12-26 16:40 | Outpatient (BNVA) | payer OTHER, MEDICAID, SELFPAY ==
[2022-09-12 10:56] VITALS: BP 146/73; BMI 42.8
== END ==
PROVIDERS: PCP Nurse Practitioner Family; Visit Provider Internal Medicine
DX: J44.0 Chronic obstructive pulmonary disease with (acute) lower respiratory infection (principal); R76.8 Other specified abnormal immunological findings in serum; G58.7 Mononeuritis multiplex; R29.898 Other symptoms and signs involving the musculoskeletal system
CPT/HCPCS: 36415; 80053; 81001; 85025; 85651; 86036

== ENCOUNTER → 2023-01-02 10:07 | Outpatient (BNVA) | payer MEDICARE, MEDICAID, SELFPAY ==
[2022-09-12 10:56] VITALS: BP 146/73; BMI 42.8
== END ==
PROVIDERS: PCP Nurse Practitioner Family; Visit Provider Nurse Practitioner Family
DX: L98.9 Disorder of the skin and subcutaneous tissue, unspecified (principal); I50.9 Heart failure, unspecified; N39.0 Urinary tract infection, site not specified
CPT/HCPCS: 81000; 87077; 87086; 87184

== ENCOUNTER → 2023-01-08 13:51 | Outpatient (BNVA) | payer MEDICARE, MEDICAID, SELFPAY ==
[2022-09-12 10:56] VITALS: BP 146/73; BMI 42.8
== END ==
PROVIDERS: PCP Nurse Practitioner Family; Visit Provider Nurse Practitioner Family
DX: E11.52 Type 2 diabetes mellitus with diabetic peripheral angiopathy with gangrene (principal); L97.812 Non-pressure chronic ulcer of other part of right lower leg with fat layer exposed; E11.42 Type 2 diabetes mellitus with diabetic polyneuropathy; E11.65 Type 2 diabetes mellitus with hyperglycemia; E78.5 Hyperlipidemia, unspecified; D35.02 Benign neoplasm of left adrenal gland; E04.1 Nontoxic single thyroid nodule; I10 Essential (primary) hypertension; Z79.4 Long term (current) use of insulin; Z79.84 Long term (current) use of oral hypoglycemic drugs
CPT/HCPCS: 87070; 87077; 87186; 97597; 99214; A6197; A6251

== ENCOUNTER → 2023-01-15 15:30 | Outpatient (BNVA) | payer MEDICARE, MEDICAID, SELFPAY ==
[2022-09-12 10:56] VITALS: BP 146/73; BMI 42.8
== END ==
PROVIDERS: PCP Nurse Practitioner Family; Visit Provider Nurse Practitioner Family
DX: E11.52 Type 2 diabetes mellitus with diabetic peripheral angiopathy with gangrene (principal); L97.812 Non-pressure chronic ulcer of other part of right lower leg with fat layer exposed
CPT/HCPCS: 11042; A6197; A6251

== ENCOUNTER → 2023-01-29 14:44 | Outpatient (BNVA) | payer MEDICARE, MEDICAID, SELFPAY ==
[2022-09-12 10:56] VITALS: BP 146/73; BMI 42.8
== END ==
PROVIDERS: PCP Nurse Practitioner Family; Visit Provider Nurse Practitioner Family
DX: E11.52 Type 2 diabetes mellitus with diabetic peripheral angiopathy with gangrene (principal); L97.812 Non-pressure chronic ulcer of other part of right lower leg with fat layer exposed
CPT/HCPCS: 11042; A6197

== ENCOUNTER 2023-01-31 13:54 | Outpatient (CLI) | payer MEDICARE, MEDICAID, SELFPAY ==
[2022-09-12 10:56] VITALS: BP 146/73; BMI 42.8
--- NOTE | 2023-01-31 14:30 | MR_ITS ---
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 Technique: Multiplanar, multisequence noncontrast imaging of the cervical spine. This study is significantly compromised by motion artifact. Patient was unable to remain still for th is examination. Posterior cervical alignment is normal. Disc spaces and vertebral body heights are ma intained. No fracture or marrow edema. Signal within the cervical cord is normal. Visualized posterior fossa is unremarkable. Craniocervical junction, C1 and C2 relationship, odontoid process and soft tissues are normal. C2-C3: No central stenosis. Narrowing of the RIGHT foramen may be artifactual. LEFT foramen appears n ormal. C3-C4: No high-grade stenosis. C4-C5: Normal. C5-C6: Normal. C6-C7: Normal. C7-T1: Normal. Paraspinal soft tissues significantly compromised by motion artifact. IMPRESSION: 1. Study is significantly compromised by motion artifact. 2. Posterior cervical alignment is normal. No significant cord compression or stenosis of the central canal. 3. Limited evaluation of the foramina due to motion.
== END 2023-01-31 13:55 | disposition home or self-care (01) ==
PROVIDERS: PCP Nurse Practitioner Family; Visit Provider Specialist
DX: G58.7 Mononeuritis multiplex (principal); M54.2 Cervicalgia
CPT/HCPCS: 72141

== ENCOUNTER → 2023-02-01 10:08 | Outpatient (BNVA) | payer MEDICARE, MEDICAID, SELFPAY ==
[2022-09-12 10:56] VITALS: BP 146/73; BMI 42.8
== END ==
PROVIDERS: PCP Nurse Practitioner Family; Visit Provider Nurse Practitioner Family
DX: E11.8 Type 2 diabetes mellitus with unspecified complications (principal); N39.0 Urinary tract infection, site not specified; I10 Essential (primary) hypertension; I50.9 Heart failure, unspecified; F17.200 Nicotine dependence, unspecified, uncomplicated; B95.2 Enterococcus as the cause of diseases classified elsewhere
CPT/HCPCS: 80053; 81000; 83880; 87077; 87086; 87184

== ENCOUNTER 2023-02-02 11:30 | Inpatient (IN) | payer MEDICARE, MEDICAID, SELFPAY ==
[2022-09-12 10:56] VITALS: BP 146/73; BMI 42.8
[2023-02-02] VITALS (89 sets, daily range): BP systolic 99–152; BP diastolic 36–85; PULSE 58–118; RESP 14–32; TEMP 37.2–38.3; O2SAT 85–100; BMI 43.0
--- NOTE | 2023-02-02 12:01 | ECG_ITS ---
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 Measurements Intervals [place] Rate: 67 P: 69 NC: 181 QRS: 42 QRSD: 80 T: 62 QT: 360 QTc: 383 Interpretive Statements SINUS RHYTHM WITH MARKED SINUS ARRHYTHMIA LOW QRS VOLTAGE IN PRECORDIAL LEADS [QRS DEFLECTION < 1.0 mV IN CHEST LEADS] Compared to ECG 03/04/2017 21:51:55 Low QRS voltage now present Electronically Signed On 02-02-2023 20:30:25 CDT by Mo Adamson M.D. [id number]
[2023-02-02 12:09] LABS: ABG PCO2 47.8 mmHg (35-45); ABG PH Result 7.36 (7.35-7.45); Arterial Blood Gas Hematocrit 38.5 % (37-47); Base Excess ABG 1.1 mmol/L (-2.0-2.0); Blood Gas Allen Test Pos; Blood Gas Operator Identificat MONRO; Blood Gas Sample Site Radial, left; Blood Gas Sample Type Arterial; Carboxyhemoglobin 2.5 %THgb (0.4-20.1); HCO3 ABG 27.1 mmol/L (22-26); Ionized Calcium Level - ABG 1.3 mmol/L (1.1-1.4); Methemoglobin 0.5 % (0.4-1.5); Oxygen Device NC; Oxygen Saturation ABG 92.8; PO2 ABG 67.2 mmHg (80.0-100.0); Potassium Level - ABG 4.1 mmol/L (3.5-5.0); Total Hemoglobin 12.5 g/dL (12-16)
[2023-02-02] MEDS: HYDROmorphone 1 mg/mL INJ 1 mL IVP (13:22)
--- NOTE | 2023-02-02 13:25 | CTR_ITS ---
PROCEDURE INFORMATION: Exam: CT Chest Without Contrast; Diagnostic Exam date and time: 02/02/2023 2:32 PM Age: 62 years old Clinical indication: Other: Sepsis; Additional info: Sepsis. Hypercapnea.No history of trauma or recent surgery is provided. TECHNIQUE: Imaging protocol: Diagnostic computed tomography of the chest without contrast. 270image(s) are provided. Radiation optimization: All CT scans at this facility use at least one of these dose optimization techniques: automated exposure control; mA and/or kV adjustment per patient size (includes targeted exams where dose is matched to clinical indication); or iterative reconstruction. Other technique: Axial images are available with sagittal and coronal reconstruction views. Automated dose exposure control is utilized. The DLP is 784.45. REPORTING DATA: Count of CT and Cardiac NM exams in prior 12 months: This patient has received [address] and 0 known cardiac nuclear medicine studies in the 12 months prior to the current study. COMPARISON: CT lung screening [id number] 06/27/2022 9:45 AM. No recent chest radiograph is currently available. Shoulder radiograph report same day. CT abdomen report of 07/25/2020. RADIATION DOSE METRICS: Total DLP (mGy-cm): 784.45 FINDINGS: Thyroid: There is heterogeneous thyroid enlargement overall along with some calcific related change left larger than right similar. Trachea: The central airways are grossly patent. Subsegmental evaluation is motion limited. Some partial filling or secretion related change could also present in this fashion of the lower lobe segmental bronchi. Lungs: There is some patchy airspace opacification at the lung bases right more so than left. There is minimal subsegmental atelectasis versus post inflammatory reticulonodular scarring demonstrated. There is some slight parenchymal heterogeneity centrally. There is some minimal parenchymal bleb related change. There is some similar ground-glass nodularity with bandlike appearance for example 2 x 3 mm right middle lobe image 40. For patients at low risk (minimal or absent history of smoking and of other known risk factors), no routine follow-up is indicated. For patients at high risk (history of smoking or of other known risk factors), consider optional CT Chest at 12 months. (Reference: Brianna) References: Brianna Vaughn et al. Guidelines for Management of Incidental Pulmonary Nodules Detected on CT Images: From the Fleischner Society 2017. Radiology. 2017;284(1):228-243. Pleural spaces: There appears to be some trace pleural fluid right more so than left. No pneumothorax is appreciated. Heart: There are extremely dense mitral apparatus calcifications present. No significant pericardial fluid collection is appreciated. Coronary arteries: There are coronary arterial calcifications present. Lymph nodes: There are subcentimeter predominant mediastinal and hilar lymph nodes overall present. Vasculature: There is some prominence of the central pulmonary arteries suggestive of chronic pulmonary hypertension. No interval aortic saccular aneurysmal dilatation is appreciated. Liver: There appears to be some mild hepatic steatosis. Gallbladder and bile ducts: Cholecystectomy clips are present. Adrenal glands: There is some similar adenomatous appearance about the left adrenal measuring approximately 2.9 x 2 cm with low Hounsfield units of approximately 8 also similar. No follow-up is recommended. Kidneys and ureters: There is some chronic appearing scarring at the right renal superior pole similar. Intraperitoneal space: There is a similar otherwise interval appearance of the included intraperitoneal space, upper abdominal structures. Bones/joints: Osseous alignment is maintained.No interval displaced fracture or dislocation is appreciated. There is some thoracic flowing spondylosis similar overall. Soft tissues: No radiopaque foreign body or subcutaneous emphysema is appreciated. Other findings: No other significant interval changes are appreciated. There is some motion limiting artifact present. CT/CT chest wo con [id number] IMPRESSION: There is some patchy early inflammatory appearance at the lung bases right more so than left along with some suspected trace pleural fluid. This can also be seen with some aspiration related sequela.
--- NOTE | 2023-02-02 13:37 | PM.HP ---
Providers/Chief Complaint Admitting Physician: Donny Evans MD Primary Care Provider: LILLIE Pleitez Chief Complaint: direct admit History of Present Illness Alissa Beck is a 62 year old female transferred from outside hospital as patient was requiring continuous CPAP. Patient carries a past medical history of type 2 diabetes mellitus, hypertension, COPD, obstructive sleep apnea on CPAP, nicotine dependence, paroxysmal A-fib with RVR on chronic Xarelto, chronic leg wound for which she follows up with wound care clinic. As per the combination of the outside physician, review of chart, patient's caregiver and some faint history with patient she was apparently at her baseline health till 2 days ago when she fell at home as she tripped while walking. After the fall she complained of pain in her right shoulder and right leg so presented to the ER where she was found to be having slight altered mental status. Patient was being treated with IV ceftriaxone for possible UTI, stroke was ruled out with negative CT head. As patient became more somnolent and CPAP dependent she was broadened to IV vancomycin and Zosyn today. Transfer was sought as they were not able to take care of continue CPAP patient on the floor. On further review of chart it seems patient was recently on antibiotics for UTI from primary care provider and for cellulitis of right lower leg wound. On examination patient was on BiPAP upon transfer, waking up and having complete conversation, patient was placed on 2 L of oxygen supplementation. During the day within few hours patient became more lethargic and confused but was waking up to verbal and physical stimulus and hence patient is back on BiPAP. Lab, outside hospital reviewed. Review of Systems General: Reports: ROS unobtainable due to medical condition and ROS unobtainable due to mental status Medications/Allergies Home Medications Medication Instructions Recorded Confirmed Last Taken Type blood sugar diagnostic (Blood #100 ea 06/30/19 02/01/23 Unknown Rx Glucose Test strips) blood-glucose meter (Blood Glucose #1 ea 01/22/20 02/01/23 Unknown Rx Monitoring kit) flash glucose scanning reader #1 ea 08/01/20 02/01/23 Unknown Rx (FreeStyle Jack 2 [place]) flash glucose sensor (FreeStyle #2 ea 08/01/20 02/01/23 Unknown Rx Jack 2 Sensor kit) oxygen-air delivery systems 01/17/22 02/01/23 Unknown History pen needle, diabetic 32 gauge x #100 ea 02/15/22 02/01/23 Unknown Rx 5/32 (BD Ultra-Fine Corine Pen Needle) nitroglycerin 0.4 mg sublingual 0.4 mg sublingual Q5M PRN chest 05/15/22 02/01/23 Unknown Rx tablet (Nitrostat) pain #25 tabs budesonide-formoterol HFA 160 See Rx Instructions .Route 05/22/22 02/01/23 Unknown Rx mcg-4.5 mcg/actuation aerosol .COMPLEX #10.2 ea inhaler (Symbicort) albuterol sulfate 90 mcg/actuation See Rx Instructions .Route 09/19/22 02/01/23 Unknown Rx aerosol inhaler .COMPLEX #8.5 ea acetaminophen 325 mg tablet 325 mg PO QID PRN 11/19/22 02/01/23 Unknown History diphenhydramine HCl 25 mg tablet 25 mg PO TID PRN 11/19/22 02/01/23 Unknown History (Benadryl Allergy) ibuprofen 200 mg tablet 200 mg PO Q6H PRN 11/19/22 02/01/23 Unknown History celecoxib 100 mg capsule (Celebrex) 100 mg PO BID #60 caps 11/26/22 02/01/23 Unknown Rx prednisone 10 mg tablet See Rx Instructions PO DAILY joint 12/26/22 02/01/23 Unknown Rx pain #120 tabs gabapentin 600 mg tablet See Rx Instructions .Route 12/31/22 02/01/23 Unknown Rx .COMPLEX #90 tabs albuterol sulfate 2.5 mg/3 mL See Rx Instructions .Route 01/02/23 02/01/23 Unknown Rx (0.083 %) solution for nebulization .COMPLEX #180 mL fluticasone propionate 50 2 spray intranasal DAILY #16 grams 01/02/23 02/01/23 Unknown Rx mcg/actuation nasal spray,suspension (Flonase Allergy Relief) aripiprazole 20 mg tablet (Abilify) 20 mg PO DAILY #30 tabs 01/03/23 02/01/23 Unknown Rx bupropion HCl 300 mg 24 hr tablet, 300 mg PO QAM #30 tabs 01/03/23 02/01/23 Unknown Rx extended release (Wellbutrin XL) clonazepam 0.5 mg tablet 0.5 mg PO DAILY PRN severe anxiety 01/03/23 02/01/23 Unknown Rx #15 tabs modafinil 200 mg tablet 200 mg PO QAM #30 tabs 01/03/23 02/01/23 Unknown Rx sertraline 100 mg tablet (Zoloft) 150 mg PO DAILY #45 tabs 01/03/23 02/01/23 Unknown Rx zolpidem 5 mg tablet (Ambien) 5 mg PO .HS PRN sleep #30 tabs 01/03/23 02/01/23 Unknown Rx atorvastatin 20 mg tablet 20 mg PO DAILY #90 tabs 01/04/23 02/01/23 Unknown Rx furosemide 40 mg tablet 40 mg PO BID #180 tabs 01/04/23 02/01/23 Unknown Rx lisinopril 40 mg tablet 40 mg PO DAILY #90 tabs 01/04/23 02/01/23 Unknown Rx potassium chloride 20 mEq 20 meq PO DAILY #90 tabs 01/04/23 02/01/23 Unknown Rx tablet,extended release rivaroxaban 20 mg tablet (Xarelto) 20 mg PO DAILY #90 tabs 01/04/23 02/01/23 Unknown Rx spironolactone 50 mg tablet 50 mg PO DAILY #90 tabs 01/04/23 02/01/23 Unknown Rx insulin aspart U-100 100 unit/mL 10 unit (0.1 mL) SUBCUT .tidac #9 01/09/23 02/01/23 Unknown Rx (3 mL) subcutaneous pen (Novolog mL FlexPen U-100 Insulin aspart) cholecalciferol (vitamin D3) 1,250 See Rx Instructions .Route 01/23/23 02/01/23 Unknown Rx mcg (50,000 unit) capsule .COMPLEX #12 caps ipratropium 20 mcg-albuterol 100 See Rx Instructions .Route 01/29/23 02/01/23 Unknown Rx mcg/actuation mist for inhalation .COMPLEX #4 ea (Combivent Respimat) metformin 500 mg tablet,extended 500 mg PO BID 30 days #60 tabs 01/29/23 02/01/23 Unknown Rx release 24 hr insulin glargine 100 unit/mL (3 See Rx Instructions .Route .COMPLEX 02/01/23 Unknown History mL) subcutaneous pen (Lantus Solostar U-100 Insulin) Allergies Allergy/AdvReac Type Severity Reaction Status Date / Time quinine [From Quine] Allergy unknown Verified 02/01/23 09:43 ropinirole [From Requip] Allergy Unknown Verified 02/01/23 09:43 Sulfa (Sulfonamide Allergy Unknown Verified 02/01/23 09:43 Antibiotics) PFSH Acute PFSH: Medical History (Updated 02/02/23 @ 16:07 by Donny Evans MD) Acute DM type 2 causing complication 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 with no history of malignant neoplasm Angina pectoris Bilateral leg edema Bipolar II disorder Callus Cannabis dependence, uncomplicated CHF (congestive heart failure), NYHA class III Chronic obstructive pulmonary disease with (acute) exacerbation Essential (primary) hypertension Excessive daytime sleepiness Gross hematuria Hypertension Insomnia Nicotine dependence, cigarettes, with other nicotine-induced disorders Polyneuropathy, unspecified Porokeratosis Post-traumatic stress disorder, chronic Psychiatric care PVD (peripheral vascular disease) Shortness of Breath Sleep apnea Tobacco abuse disorder Uncontrolled type 2 diabetes mellitus with polyneuropathy UTI (urinary tract infection) Surgical History (Updated 02/02/23 @ 16:07 by Donny Evans MD) H/O chest tube placement History of appendectomy History of cholecystectomy History of hernia repair History of hysterectomy Family History Father , AT AGE 21 Gunshot wound Mother , AT AGE 61 CAD (coronary artery disease) Other Cancer Diabetes Stroke Social History Smoking and tobacco status: current every day smoker cigarettes Packs smoked per day: 2.5 Years cigarettes smoked: 52 Quit status (tobacco): not considering quitting Second hand smoke exposure: Yes Smoking risk assessment/counseling performed?: No Alcohol intake: current Alcohol intake frequency: holidays/special occasions only Alcohol type: other (mixed drink) Desire information about alcohol rehabilitation?: No Substance/Drug Use: current Substance/Drug use frequency: Special occassions/opportunity only Desire information about substance/drug rehabilitation?: No Adopted: No Caregiver/support person: No Lives independently: Yes Household members: significant other and friend(s) Housing: Manufactured/Mobile home Marital status: Life Partner Number of children: 0 Number of grandchildren: 0 Highest education level completed: Some College, No Degree service: No Current occupational status: disabled 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 Current occupational exposures/hazards: No Pets and animals: Yes (3 dogs) Pets & animals: dog(s) Leisure activites: fishing and other Leisure activities details: sewing, writing, gardening Sexually active: Yes How many partners: 1 Do you think of yourself as: Straight/Heterosexual Current gender identity: Female Latha/Lutheran: Orthodoxy Special latha needs: No Agree to transfusion: Yes Financial difficulty paying for basics: Somewhat Hard Female Reproductive History: Para: 0 Spontaneous abortions: No Vitals/I&O/Wt Last Vital Signs Pulse 60 02/02/23 13:24 Resp 20 H 02/02/23 13:22 Pulse Ox 97 02/02/23 13:24 O2 Del Method Nasal Cannula 02/02/23 12:23 FiO2 36 02/02/23 13:24 Weight last 48 hrs Weight 136.078 kg Physical Exam Narrative: General: Drowsy, chronically sick appearing, dehydrated lips, on BiPAP, HEENT: PERRLA, pupils bilaterally equal and reactive Chest: Bilateral bronchial breath sounds with occasional rhonchi and diffuse crackles CVS: S1-S2 irregularly irregular, no murmurs, no tachycardia, no gallops, no rubs Abdomen: Soft, nontender, no organomegaly, bowel sounds present, morbidly obese Neuro: No focal deficits, no facial deformity, moving all limbs Extremity: Right lower limb cellulitis with open wounds as below Left lower limb: Slight erythematous around joe and mid calf area Extremity: NARRATIVE EXTREMITY EXAM: Data 02/02/23 11:02 A&P Assessment and plan (1) Altered mental status: (2) Acute and chronic respiratory failure with hypercapnia: (3) Acute bronchitis due to Rhinovirus: (4) Encephalopathy acute: (5) Wound of right leg: (6) Cellulitis: Qualifiers: Site of cellulitis: extremity Site of cellulitis of extremity: lower extremity Laterality: right Qualified Code(s): L03.115 - Cellulitis of right lower limb (7) UTI (urinary tract infection) due to Enterococcus: (8) AF (paroxysmal atrial fibrillation): (9) Hypertension: Qualifiers: Hypertension type: essential hypertension Qualified Code(s): I10 - Essential (primary) hypertension (10) COPD (chronic obstructive pulmonary disease): Qualifiers: COPD type: chronic bronchitis Chronic bronchitis type: simple Qualified Code(s): J41.0 - Simple chronic bronchitis (11) Diabetes type 2, controlled: (12) CHF (congestive heart failure), NYHA class III: Plan 62-year-old female chronically sick with history of COPD, nicotine dependence, congestive heart failure, sleep apnea on CPAP, chronic right lower limb leg wound presented to outside hospital after fall found to be in altered mental status. Altered mental status/acute encephalopathy: Most likely in setting of hypercapnia due to COPD exacerbation from rhinovirus bronchitis along with infectious encephalopathy secondary to UTI and cellulitis. Keep oxygen saturation over 88%. Keep neuro pressure 65. Check CT chest without contrast, proBNP, procalcitonin, D-dimer. DuoNebs every 4 hour, budesonide twice daily. Continue with BiPAP ventilation for now. Patient chronically on 20 mg of prednisone. Switch to IV Solu-Medrol 40 mg twice daily for now. NPO. Cannot rule out mild aspiration pneumonia given altered mental status. Start on gentle IV hydration with normal saline at 75 cc/h while monitoring for fluid overload. Check sputum culture, respiratory viral panel, procalcitonin, TSH, vitamin B12 level. Check urine bacterial antigen. Reviewed culture history significant for Enterobacter, Enterococcus and MRSA from wound last month and Enterococcus UTI last month as well. For now empirically start patient on IV vancomycin and IV Zosyn. CT lower limb to rule out abscess and osteomyelitis. Wound care with silver cell. Antibiotics as above. Leg elevation. Stanley catheterization. Strict improper charting. Last echocardiogram shows EF of 65% with grade 2 diastolic dysfunction with dilated IVC in December 2022. Gentle IV hydration as above. Paroxysmal A-fib: Rate controlled and bradycardia. Continue with chronic Xarelto. Continue to monitor. Hypertension: Goal blood pressure less than 140/90 mmHg. Currently blood pressures stable. Hold off on home dose of lisinopril for now. Uptitrate as needed. Type 2 diabetes mellitus: Check A1c. Continue with home dose of Lantus 65 units twice daily. Insulin moderate dose protocol. Fall: Mechanical as per family members. Complaining of right shoulder pain. Check shoulder x-ray. CT head at outside hospital ruled out intracranial hemorrhage. CODE STATUS: Discussed in detail with patient's caregiver/life partner/DPOA. Full code. NPO. Protonix for PUD prophylaxis Xarelto will suffice as DVT prophylaxis Admit to ICU. Attestations Medical Necessity Statement*: Seen for more than 2 midnights for management of altered mental status/acute encephalopathy in setting of hypercapnic respiratory failure secondary COPD exacerbation from rhinovirus bronchitis, right lower limb cellulitis and UTI Coding Level of Care Code Critical Care >/= 30 minutes Critical care time (in minutes): 70 The high probability of a clinically significant, sudden or life threatening deterioration, as referenced in this documentation, required my full and direct attention, intervention and personal management. The critical care time shown is in addition to time spent performing any reported separately billable procedures and includes the following: [x] Data and vital sign review and interpretation [x] Patient assessment, examination and intervention [x] Medication orders and management [x] Patient/Family updates as able [x] Care Coordination and Documentation. Diagnoses Altered mental status R41.82 Acute and chronic respiratory failure with hypercapnia J96.22 Acute bronchitis due to Rhinovirus J20.6 Encephalopathy acute G93.40 Wound of right leg S81.801A Cellulitis L03.115 Site of cellulitis: extremity Site of cellulitis of extremity: lower extremity Laterality: right UTI (urinary tract infection) due to Enterococcus N39.0; B95.2 AF (paroxysmal atrial fibrillation) I48.0 Hypertension I10 Hypertension type: essential hypertension COPD (chronic obstructive pulmonary disease) J41.0 COPD type: chronic bronchitis Chronic bronchitis type: simple Diabetes type 2, controlled E11.9 CHF (congestive heart failure), NYHA class III I50.9
--- NOTE | 2023-02-02 13:44 | CTR_ITS ---
PROCEDURE INFORMATION: Exam: CT Right Lower Extremity Without Contrast; Lower Leg Exam date and time: 02/02/2023 2:36 PM Age: 62 years old Clinical indication: Cellulitis; Lower leg; Right; Additional info: Cellulitis, possible abscess. Previous injury. No history of trauma or recent surgery is provided. TECHNIQUE: Imaging protocol: CT of the right lower extremity without contrast was performed. Exam focused on the lower leg. No localizing skin marker is currently available. 822image(s) are provided. The DLP is 1080.28 Radiation optimization: All CT scans at this facility use at least one of these dose optimization techniques: automated exposure control; mA and/or kV adjustment per patient size (includes targeted exams where dose is matched to clinical indication); or iterative reconstruction. REPORTING DATA: Count of CT and Cardiac NM exams in prior 12 months: This patient has received [address] and 0 known cardiac nuclear medicine studies in the 12 months prior to the current study. COMPARISON: CR XR tibia fibula RT 2V [id number] 09/25/2022 3:[address] or ultrasound of the lower extremity is currently available. RADIATION DOSE METRICS: Total DLP (mGy-cm): 1080.2 FINDINGS: Bones/joints: Osseous alignment is maintained.No interval displaced fracture or dislocation is appreciated. There appear to be some chronic degenerative changes about the ankles and knees. No cortical irregularity or periosteal reaction is appreciated. There is a trace amount of knee joint fluid present. Soft tissues: There is some slight prominence of the soft tissues overall. No large radiopaque foreign body or diffuse subcutaneous emphysema is appreciated. There is some chronic soft tissue calcification of the anterior soft tissues similar overall. There is some tiny plantar calcaneal spurring as well as Achilles insertional spurring demonstrated. There is some prominence of the subcutaneous vasculature with some varicosity type appearance laterally predominant. There is subcutaneous edematous stranding demonstrated overall with lower leg and foot predominance. No organized subcutaneous fluid collections or air-fluid levels are currently appreciated. There appears to be some chronic thickening and calcification including about the distal aspect of the tibialis posterior tendon as well as hallucis. Ligamentous evaluation is overall limited. There is some questionable skin undulation and could also represent some previous injury for example at the anterior soft tissues. Vasculature: There are some atherosclerotic vascular calcifications present. Other findings: No other significant interval changes are appreciated. CT/CT lower leg RT wo con* [id number] IMPRESSION: 1. There is subcutaneous fluid stranding overall with lower leg and foot predominance suggestive of edema and inflammation. No organized abscess type collection with air-fluid level is currently appreciated. 2. There is some skin undulation which could be seen with previous injury related sequela for example at the anterior soft tissues. No underlying cortical irregularity at this site is currently appreciated. 3. There is some prominence of the subcutaneous vessels with varicosity type appearance. If there is concern for venous related issue or insufficiency then consider dedicated venous lower extremity ultrasound.
--- NOTE | 2023-02-02 13:46 | XRR_ITS ---
PROCEDURE INFORMATION: Exam: XR Right Shoulder Exam date and time: 02/02/2023 2:44 PM Age: 62 years old Clinical indication: Injury or trauma; Fall; Blunt trauma (contusions or hematomas); Shoulder; Right TECHNIQUE: Imaging protocol: Radiologic exam of the right shoulder. Views: 2 or more views. COMPARISON: CT chest wo con [id number] 02/02/2023 2:32 PM FINDINGS: Bones/joints: No fracture or other acute abnormality. Small exostosis arises from the superolateral margin of the acromion process. The shoulder is otherwise unremarkable. Soft tissues: Normal. XR/XR shoulder RT min 2V* [id number] IMPRESSION: Nonacute findings.
[2023-02-02] MEDS: pantoprazole 40 mg SDV IVP (14:06)
[2023-02-02] MEDS: nicotine 14 mg Patch 1 PATCH TRANSDERMA (14:06)
--- NOTE | 2023-02-02 14:22 | ECG_ITS ---
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 Measurements Intervals [place] Rate: 58 P: 43 [place]: 169 QRS: 19 QRSD: 88 T: 68 QT: 408 QTc: 403 Interpretive Statements SINUS BRADYCARDIA Compared to ECG 02/02/2023 12:20:47 Sinus rhythm no longer present Sinus arrhythmia no longer present Electronically Signed On 02-02-2023 20:31:25 CDT by Mo Adamson M.D. [id number]
[2023-02-02 14:27] LABS: Add Urine Microscopic? YES; Bilirubin Urine Neg (Negative); Blood Urine 3+ (Negative); Glucose Urine UA Norm (Normal); Ketones Urine Negative (Negative); Leukocyte Esterase Urine 2+ (Negative); Nitrate Urine Positive (Negative); Protein Urine Trace (Negative); RBC Urine 25-40 /hpf (0-2); Specific Gravity, Urine 1.015 (1.005-1.030); Urine Appearance Cloudy (CLEAR); Urine Color Yellow (Yellow); Urobilinogen Urine Norm (Negative); pH Urine 5 (5-7)
[2023-02-02 14:28] LABS: Add Urine Culture? Yes; Bacteria Urine 2+ /hpf; Squamous Epithelial Cell Urine 0-4 /hpf (0-5); WBC Urine >100 /hpf (0-5)
[2023-02-02 14:38] LABS: INR 1.27 (0.8-1.2); Partial Thromboplastin Time 33.4 SECONDS (23.9-36.7)
[2023-02-02 14:41] LABS: D Dimer 0.93 ug/mLFEU (0-0.59)
[2023-02-02 14:41] LABS: Ammonia 38 umol/L (11-51); Lactic Sepsis W/Reflex 0.6 mmol/L (0.5-2.2)
[2023-02-02 14:44] LABS: Troponin(5th) Baseline 27 ng/L (0-10)
[2023-02-02 15:00] LABS: NT Pro B Type Natriuretic Pept 888 pg/mL (0-125); Procalcitonin 0.29 ng/mL (0-0.5); Thyroid Stimulating Hormone 1.23 uIU/mL (0.27-4.20); Vitamin B12 483 pg/mL (232-1245)
[2023-02-02] MEDS: ipratropium-albuterol 3 mL Neb INHALATION ×3 (15:09→23:11)
[2023-02-02 15:12] LABS: Alanine Aminotransferase 13 U/L (0-33); Albumin Level 3.2 g/dL (3.5-5.2); Alkaline Phosphatase 54 U/L (35-105); Anion Gap 11.1 (5-19); Aspartate Amino Transferase 16 U/L (0-32); Blood Urea Nitrogen 21 mg/dL (8-23); Calcium 8.6 mg/dL (8.5-10.5); Carbon Dioxide 24 mmol/L (22-29); Chloride 102 mmol/L (98-107); Globulin 2.6 g/dL (1.3-4.6); Glomerular Filtration Rate 72.7 mL/min (90-130); Glucose 167 mg/dL (65-115); Magnesium 1.7 mg/dL (1.7-2.3); Osmolality Calculated 283 mOsm/kg (285-295); Potassium 4.1 mmol/L (3.5-5.1); Sodium 133 mmol/L (136-145); Total Bilirubin 0.4 mg/dL (0.15-1.2); Total Protein 5.8 g/dL (6.6-8.7)
[2023-02-02] MEDS: gabapentin 300 mg Capsule 600 MG PO ×2 (15:15→20:31)
[2023-02-02 15:41] LABS: Adenovirus Not Detected (NOT DETECT); Chlamydia Pneumoniae Not Detected (NOT DETECT); Coronavirus 229E,HKU1,NL63,OC4 Not Detected (NOT DETECT); Human Metapneumovirus Not Detected (NOT DETECT); Human Rhinovirus/Enterovirus Detected (NOT DETECT); Influenza A Not Detected (NOT DETECT); Influenza A H1 Not Detected (NOT DETECT); Influenza A H1-2009 Not Detected (NOT DETECT); Influenza A H3 Not Detected (NOT DETECT); Influenza B Not Detected (NOT DETECT); Mycoplasma Pneumoniae Not Detected (NOT DETECT); Parainfluenza Virus Type 1 Not Detected (NOT DETECT); Parainfluenza Virus Type 2 Not Detected (NOT DETECT); Parainfluenza Virus Type 3 Not Detected (NOT DETECT); Parainfluenza Virus Type 4 Not Detected (NOT DETECT); Respiratory Syncytial Virus A Not Detected (NOT DETECT); Respiratory Syncytial Virus B Not Detected (NOT DETECT); SARS-COV-2 Not Detected (NOT DETECT)
[2023-02-02] MEDS: vancomycin 1,500 MG/300 ML PIGGYBACK 200 MG IV (15:57)
[2023-02-02] MEDS: piperacillin-tazobactam 3.375 GM in sodium chloride 0.9% (plus) 50 ML IV (16:12)
[2023-02-02] MEDS: sodium chloride 0.9% 1,000 ML 75 ML IV (16:53)
[2023-02-02 16:57] LABS: Glucose Point of Care 160 mg/dL (70-110)
--- NOTE | 2023-02-02 17:25 | PC.NURSE ---
Patient arrived with multiple wounds, see wound assessment for details.
[2023-02-02 17:34] LABS: Basophils % 0.2 %; Eosinophils # 0.1 10^3/uL (0.0-0.8); Eosinophils % 0.6 %; Hematocrit 38.3 % (36-47); Lymphocytes # 1.1 10^3/uL (0.8-4.8); Lymphocytes % 9.7 %; Mean Corpuscular HGB Conc 30.5 g/dL (30-55); Mean Corpuscular Hemoglobin 28.7 pg (27-33); Mean Corpuscular Volume 93.9 fl (85-98); Mean Platelet Volume 9.5 fL (7.4-10.4); Monocytes # 0.8 10^3/uL (0.2-0.9); Monocytes % 7.1 %; Neutrophils # 9.59 10^3/uL (1.8-7.7); Nucleated Red Blood Cells % 0 %; Platelet Count 179 10^3/cmm (157-399); Red Blood Count 4.08 10^6/uL (3.85-5.65); Red Cell Distribution Width 13.1 % (12.1-15.1)
[2023-02-02] MEDS: methylPREDNISolone sod succ 40 MG in water for injection-sterile 1 ML 12 MG IVP (17:47)
[2023-02-02] MEDS: insulin lispro 100 unit/1 mL SUBCUT ×2 (17:47→20:31)
[2023-02-02 17:58] LABS: Troponin 5 2HR 24.79 ng/L (0-10)
[2023-02-02 18:00] LABS: Troponin 5 2HR Delta -2.21 ABS# (0-10)
--- NOTE | 2023-02-02 18:01 | ECG_ITS ---
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 Measurements Intervals [place] Rate: 58 P: 44 [place]: 179 QRS: 14 QRSD: 84 T: 64 QT: 376 QTc: 371 Interpretive Statements SINUS BRADYCARDIA Compared to ECG 02/02/2023 14:22:11 No significant changes Electronically Signed On 02-02-2023 20:31:12 CDT by Mo Adamson M.D. [id number]
[2023-02-02] MEDS: budesonide 0.5 mg/2 mL Neb INHALATION (19:42)
[2023-02-02 20:38] LABS: Glucose Point of Care 153 mg/dL (70-110)
[2023-02-03] VITALS (85 sets, daily range): BP systolic 98–151; BP diastolic 44–86; PULSE 48–90; RESP 13–35; TEMP 36.3–36.9; O2SAT 90–98; BMI 43.3
[2023-02-03] MEDS: piperacillin-tazobactam 3.375 GM in sodium chloride 0.9% (plus) 50 ML IV ×4 (00:39→23:11)
[2023-02-03] MEDS: vancomycin 1,500 MG/300 ML PIGGYBACK 200 MG IV ×2 (02:47→16:00)
[2023-02-03] MEDS: ipratropium-albuterol 3 mL Neb INHALATION ×6 (03:01→23:02)
[2023-02-03] MEDS: acetaminophen 325 mg Tablet 650 MG PO ×2 (04:21→20:13)
[2023-02-03 04:48] LABS: Basophils % 0.1 %; Eosinophils % 0.1 %; Hematocrit 38.5 % (36-47); Lymphocytes # 0.6 10^3/uL (0.8-4.8); Lymphocytes % 4.9 %; Mean Corpuscular HGB Conc 30.4 g/dL (30-55); Mean Corpuscular Hemoglobin 28.3 pg (27-33); Mean Platelet Volume 9.8 fL (7.4-10.4); Monocytes # 0.5 10^3/uL (0.2-0.9); Monocytes % 4.5 %; Neutrophils # 10.14 10^3/uL (1.8-7.7); Neutrophils % 89.8 %; Nucleated Red Blood Cells % 0 %; Platelet Count 198 10^3/cmm (157-399); Red Blood Count 4.14 10^6/uL (3.85-5.65); Red Cell Distribution Width 12.8 % (12.1-15.1); White Blood Count 11.29 10^3/uL (3.29-11.43)
[2023-02-03 05:16] LABS: Estmated Average Glucose 217; Hemoglobin A1C 9.2 % (4.0-6.0)
[2023-02-03 05:17] LABS: Alanine Aminotransferase 14 U/L (0-33); Alkaline Phosphatase 59 U/L (35-105); Anion Gap 11.8 (5-19); Aspartate Amino Transferase 12 U/L (0-32); Blood Urea Nitrogen 20 mg/dL (8-23); Calcium 8.6 mg/dL (8.5-10.5); Carbon Dioxide 25 mmol/L (22-29); Chloride 101 mmol/L (98-107); Glomerular Filtration Rate 56.2 mL/min (90-130); Glucose 280 mg/dL (65-115); Magnesium 1.9 mg/dL (1.7-2.3); Osmolality Calculated 289 mOsm/kg (285-295); Phosphorus 3.5 mg/dL (2.5-4.5); Potassium 4.8 mmol/L (3.5-5.1); Sodium 133 mmol/L (136-145); Total Bilirubin 0.4 mg/dL (0.15-1.2)
[2023-02-03 05:19] LABS: Chol HDL Ratio 2.86 mg/dL (0.0-4.40); Cholesterol 106 mg/dL (0-200); HDL Cholesterol 37 mg/dL (60-100); LDL Cholesterol Calculated 51 mg/dL (50-129); LDL HDL Ratio 1.38 RATIO (0.00-3.22); Triglycerides 90 mg/dL (0-150)
[2023-02-03] MEDS: buPROPion XL (24 HR) 300 mg Tablet PO (05:25)
[2023-02-03 05:30] LABS: Folate Level 15.3 ng/mL (4.8-37.3)
[2023-02-03] MEDS: budesonide 0.5 mg/2 mL Neb INHALATION ×2 (07:32→19:50)
[2023-02-03] MEDS: nicotine 14 mg Patch 1 PATCH TRANSDERMA (09:08)
[2023-02-03] MEDS: ARIPiprazole 10 mg Tablet 20 MG PO (09:08)
[2023-02-03] MEDS: rivaroxaban 10 mg Tablet 20 MG PO (09:08)
[2023-02-03] MEDS: gabapentin 300 mg Capsule 600 MG PO ×3 (09:08→20:11)
[2023-02-03] MEDS: atorvastatin 40 mg Tablet 20 MG PO (09:08)
[2023-02-03] MEDS: methylPREDNISolone sod succ 40 MG in water for injection-sterile 1 ML 12 MG IVP ×2 (09:09→17:59)
[2023-02-03] MEDS: sertraline 100 mg Tablet 150 MG PO (09:09)
[2023-02-03] MEDS: insulin glargine 100 units/1 mL 65 UNIT SUBCUT (09:10)
[2023-02-03 09:43] LABS: Glucose Point of Care 276 mg/dL (70-110)
[2023-02-03] MEDS: insulin lispro 100 unit/1 mL SUBCUT ×4 (10:01→20:11)
[2023-02-03 11:17] LABS: Glucose Point of Care 234 mg/dL (70-110)
--- NOTE | 2023-02-03 11:57 | P.PN_ITS ---
Subjective Subjective: Seen around lunchtime. No acute events overnight. Today morning patient seen on full dose of oxygen supplementation. Patient is a lot more awake and alert. Able to have complete conversation without any episodes of confusion. Patient remained on BiPAP overnight. Today morning states she is extremely hungry. Denies any nausea, vomiting,. She confirms her history today. Also confirms full CODE STATUS and that her life partner Ms. Barron will be the DPOA. Document urine output of around 1500 cc in last 24 hours. Currently since today morning having urine output heart rate of around 100-150 cc/h. Blood work shows stable CBC, CMP showing sodium of 133 which is stable, creatinine of 1, no further active abnormalities, A1c of 9.2 Vitals/I&O/Wt Last Vital Signs Temp 98.3 F 02/03/23 09:30 Pulse 54 L 02/03/23 10:00 Resp 13 02/03/23 10:00 BP 128/48 02/03/23 10:00 Pulse Ox 97 02/03/23 10:00 O2 Del Method Nasal Cannula 02/03/23 10:00 O2 Flow Rate 4 02/03/23 10:00 FiO2 28 02/03/23 03:02 02/02/23 02/03/23 02/03/23 22:59 06:59 14:59 Intake Total 1173 / 1173 1830 / 3003 481 / 481 Output Total 450 / 450 1125 / 1575 Balance 723 / 723 705 / 1428 481 / 481 Weight last 48 hrs Weight 136.985 kg Weight 136.078 kg Physical Exam Narrative: General: Drowsy, chronically sick appearing, dehydrated lips, on BiPAP, HEENT: PERRLA, pupils bilaterally equal and reactive Chest: Bilateral bronchial breath sounds with occasional rhonchi and diffuse crackles CVS: S1-S2 irregularly irregular, no murmurs, no tachycardia, no gallops, no ru bs Abdomen: Soft, nontender, no organomegaly, bowel sounds present, morbidly obese Neuro: No focal deficits, no facial deformity, moving all limbs Extremity: Right lower limb cellulitis with open wounds as below Left lower limb: Slight erythematous around joe and mid calf area Skin: OTHER: Urinary Catheter Management: Stanley: Cath Placed During This Visit: yes Reason for Continuing Indwelling Catheter: Accurate Measurement of Urinary Output in Critically Ill Patients Urinary Catheter Date of Insertion: 02/02/23 Data 02/03/23 04:24 02/03/23 04:24 Micro: Microbiology 02/02/23 13:42 Gram Stain - Final Sputum - Expectorated Sputum Sputum Culture - Preliminary 02/02/23 13:42 Urine Culture - Preliminary Urine,Clean Catch 02/02/23 13:42 Bacterial Antigens - Final Urine Kidney 02/02/23 14:11 Blood Culture - Preliminary Blood SPECIMEN COLLECTED 02/02/23 14:07 Blood Culture - Preliminary Blood SPECIMEN COLLECTED A&P Assessment and plan (1) Altered mental status: (2) Acute and chronic respiratory failure with hypercapnia: (3) Acute bronchitis due to Rhinovirus: (4) Encephalopathy acute: (5) Wound of right leg: (6) Cellulitis: Qualifiers: Site of cellulitis: extremity Site of cellulitis of extremity: lower extremity Laterality: right Qualified Code(s): L03.115 - Cellulitis of right lower limb (7) UTI (urinary tract infection) due to Enterococcus: (8) AF (paroxysmal atrial fibrillation): (9) Hypertension: Qualifiers: Hypertension type: essential hypertension Qualified Code(s): I10 - Essential (primary) hypertension (10) COPD (chronic obstructive pulmonary disease): Qualifiers: COPD type: chronic bronchitis Chronic bronchitis type: simple Qualified Code(s): J41.0 - Simple chronic bronchitis (11) Diabetes type 2, controlled: (12) CHF (congestive heart failure), NYHA class III: Plan 62-year-old female chronically sick with history of COPD, nicotine dependence, congestive heart failure, sleep apnea on CPAP, chronic right lower limb leg wound presented to outside hospital after fall found to be in altered mental status. Altered mental status/acute encephalopathy: Most likely in setting of hypercapnia due to COPD exacerbation from rhinovirus bronchitis along with infectious encephalopathy secondary to UTI and cellulitis. Keep oxygen saturation over 88%. Keep mean arterial pressure 65. Follow-up sputum culture, blood culture, urine culture. Appreciate CT chest results with concerns of possible aspiration pneumonitis DuoNebs every 4 hour, budesonide twice daily. Continue with BiPAP ventilation as needed and nightly. Patient chronically on 20 mg twice daily of prednisone for last 2 months. Continue with IV Solu-Medrol 40 mg twice daily for now. Appreciate speech therapy evaluation. Patient will need modified barium swallow. N.p.o. except medications status for now. Advance diet as per speech evaluation and modified barium swallow results. Continue with gentle IV hydration with normal saline at 100 cc/h while monitoring for fluid overload. Sputum culture pending, respiratory viral panel shows enterovirus. Reviewed culture history significant for Enterobacter, Enterococcus and MRSA from wound last month and Enterococcus UTI last month as well. For now empirically start patient on IV vancomycin and IV Zosyn. CT lower limb ruled out abscess and osteomyelitis but consistent with severe cellulitis. Wound care with silver cell. Antibiotics as above. Leg elevation. Stanley catheterization. Strict input and output charting. Last echocardiogram shows EF of 65% with grade 2 diastolic dysfunction with dilated IVC in December 2022. Gentle IV hydration as above. Paroxysmal A-fib: Rate controlled and bradycardia. Continue with chronic Xarelto. Continue to monitor. Hypertension: Goal blood pressure less than 140/90 mmHg. Currently blood pressures stable. Hold off on home dose of lisinopril for now. Uptitrate as needed. Type 2 diabetes mellitus: A1c 9.2. Continue with home dose of Lantus 65 units twice daily. Insulin moderate dose protocol. Fall: Mechanical as per family members. Complaining of right shoulder pain. Shoulder x-ray without any acute abnormality CT head at outside hospital ruled out intracranial hemorrhage. PT evaluation CODE STATUS: Discussed in detail with patient's caregiver/life partner/DPOA. Full code. NPO. Protonix for PUD prophylaxis Xarelto will suffice as DVT prophylaxis Continue care at ICU. Attestations Medical Necessity Statement*: Requires further hospitalization for management of acute metabolic encephalopa thy in setting of right lower limb cellulitis, UTI, aspiration pneumonitis with hypercapnic respiratory failure in setting of rhinovirus bronchitis leading to COPD exacerbation Diagnoses Altered mental status R41.82 Acute and chronic respiratory failure with hypercapnia J96.22 Acute bronchitis due to Rhinovirus J20.6 Encephalopathy acute G93.40 Wound of right leg S81.801A Cellulitis L03.115 Site of cellulitis: extremity Site of cellulitis of extremity: lower extremity Laterality: right UTI (urinary tract infection) due to Enterococcus N39.0; B95.2 AF (paroxysmal atrial fibrillation) I48.0 Hypertension I10 Hypertension type: essential hypertension COPD (chronic obstructive pulmonary disease) J41.0 COPD type: chronic bronchitis Chronic bronchitis type: simple Diabetes type 2, controlled E11.9 CHF (congestive heart failure), NYHA class III I50.9
[2023-02-03] MEDS: pantoprazole 40 mg SDV IVP (13:18)
[2023-02-03 18:00] LABS: Glucose Point of Care 273 mg/dL (70-110)
[2023-02-03] MEDS: sodium chloride 0.9% 1,000 ML 100 ML IV (20:01)
[2023-02-03] MEDS: CLONazepam 0.5 mg Tablet PO (20:13)
[2023-02-04] VITALS (31 sets, daily range): BP systolic 107–158; BP diastolic 58–98; PULSE 41–140; RESP 11–26; TEMP 36.6–36.9; O2SAT 89–96
[2023-02-04] MEDS: vancomycin 1,500 MG/300 ML PIGGYBACK 200 MG IV ×2 (02:07→16:29)
[2023-02-04] MEDS: morphine 4 mg/mL SDV 1 mL 2 MG IVP (02:19)
--- NOTE | 2023-02-04 02:21 | ECG_ITS ---
[facility] Test Date: 2023-02-04 Pat Name: Alissa Beck Department: Room: [facility]08 Gender: Female Inspector Quality Assurance: : 1960 Requested By: Ivanna Carver Order Number: [id number] Olegario MD: Mo Adamson M.D. Measurements Intervals [place] Rate: 41 P: 81 SD: 163 QRS: 18 QRSD: 91 T: 54 QT: 478 QTc: 397 Interpretive Statements SINUS BRADYCARDIA Compared to ECG 02/02/2023 18:06:39 No significant changes Electronically Signed On 02-04-2023 16:16:29 CDT by Mo Adamson M.D. [email or web address] [facility] mississippiCincinnati State [employer] Collegekettering health springfieldAmerican Injury Attorney Group/store/[id number]
--- NOTE | 2023-02-04 02:35 | PC.NURSE ---
0210 -- reports chest pain 7/10 on 0-10 pain scale. CM shows bradycardia with rate 30-50's. Notified Dr. Carver, orders given for ekg and troponin series. Morphine 2mg given IVP for chest pain.
[2023-02-04 02:57] LABS: Troponin(5th) Baseline 12 ng/L (0-10)
--- NOTE | 2023-02-04 04:00 | ECG_ITS ---
[facility] Test Date: 2023-02-04 Pat Name: Alissa Beck Department: Room: [facility]08 Gender: Female Glass Embosser: : 1960 Requested By: Ivanna Carver Order Number: [id number] Olegario MD: Mo Adamson M.D. Measurements Intervals [place] Rate: 43 P: 75 TX: 173 QRS: 30 QRSD: 99 T: 64 QT: 469 QTc: 397 Interpretive Statements SINUS BRADYCARDIA Compared to ECG 02/04/2023 02:21:29 No significant changes Electronically Signed On 02-04-2023 16:19:22 CDT by Mo Adamson M.D. [email or web address] Interactivejasper general hospitalAperto Networksmercy health willard hospitalKnightHaven/store/[id number]
[2023-02-04] MEDS: ipratropium-albuterol 3 mL Neb INHALATION ×4 (04:32→19:47)
[2023-02-04 04:56] LABS: Basophils % 0.1 %; Hematocrit 37.1 % (36-47); Lymphocytes # 0.5 10^3/uL (0.8-4.8); Lymphocytes % 4.4 %; Mean Corpuscular HGB Conc 31.5 g/dL (30-55); Mean Corpuscular Hemoglobin 28.9 pg (27-33); Mean Corpuscular Volume 91.6 fl (85-98); Mean Platelet Volume 9.9 fL (7.4-10.4); Monocytes # 0.4 10^3/uL (0.2-0.9); Neutrophils # 9.86 10^3/uL (1.8-7.7); Nucleated Red Blood Cells % 0 %; Platelet Count 192 10^3/cmm (157-399); Red Blood Count 4.05 10^6/uL (3.85-5.65); Red Cell Distribution Width 12.3 % (12.1-15.1); White Blood Count 10.83 10^3/uL (3.29-11.43)
[2023-02-04 05:25] LABS: Troponin 5 2HR 12.78 ng/L (0-10); Troponin 5 2HR Delta 0.78 ABS# (0-10)
[2023-02-04 05:31] LABS: Alanine Aminotransferase 17 U/L (0-33); Albumin Level 3.5 g/dL (3.5-5.2); Alkaline Phosphatase 61 U/L (35-105); Anion Gap 13.9 (5-19); Aspartate Amino Transferase 14 U/L (0-32); Blood Urea Nitrogen 20 mg/dL (8-23); Calcium 8.9 mg/dL (8.5-10.5); Carbon Dioxide 25 mmol/L (22-29); Chloride 105 mmol/L (98-107); Globulin 2.2 g/dL (1.3-4.6); Glomerular Filtration Rate 63.4 mL/min (90-130); Glucose 256 mg/dL (65-115); Osmolality Calculated 299 mOsm/kg (285-295); Potassium 4.9 mmol/L (3.5-5.1); Sodium 139 mmol/L (136-145); Total Bilirubin 0.2 mg/dL (0.15-1.2); Total Protein 5.7 g/dL (6.6-8.7)
[2023-02-04] MEDS: buPROPion XL (24 HR) 300 mg Tablet PO (05:44)
[2023-02-04] MEDS: budesonide 0.5 mg/2 mL Neb INHALATION ×2 (07:45→19:47)
--- NOTE | 2023-02-04 08:02 | ECG_ITS ---
[facility] Test Date: 2023-02-04 Pat Name: Alissa Beck Department: Room: [facility]08 Gender: Female Curriculum Facilitator: : 1960 Requested By: Ivanna Carver Order Number: [id number] Olegario MD: Mo Adamson M.D. Measurements Intervals [place] Rate: 136 P: 0 [place]: 0 QRS: 19 QRSD: 91 T: 75 QT: 291 QTc: 439 Interpretive Statements ATRIAL FIBRILLATION WITH RAPID VENTRICULAR RESPONSE WITH ABERRANT CONDUCTION OR VENTRICULAR PREMATURE COMPLEXES NONSPECIFIC ST & T-WAVE ABNORMALITY ABNORMAL RHYTHM ECG Compared to ECG 02/04/2023 04:00:40 Ventricular premature complex(es) now present Aberrant conduction of supraventricular beat(s) now present T-wave abnormality now present Sinus bradycardia no longer present Electronically Signed On 02-04-2023 16:19:01 CDT by Mo Adamson M.D. [email or web address]/[id number]
[2023-02-04 08:17] LABS: Glucose Point of Care 235 mg/dL (70-110)
[2023-02-04] MEDS: piperacillin-tazobactam 3.375 GM in sodium chloride 0.9% (plus) 50 ML IV ×2 (08:21→16:29)
[2023-02-04] MEDS: ARIPiprazole 10 mg Tablet 20 MG PO (08:21)
[2023-02-04] MEDS: nicotine 14 mg Patch 1 PATCH TRANSDERMA (08:21)
[2023-02-04] MEDS: gabapentin 300 mg Capsule 600 MG PO ×3 (08:21→20:22)
[2023-02-04] MEDS: rivaroxaban 10 mg Tablet 20 MG PO (08:21)
[2023-02-04] MEDS: sertraline 100 mg Tablet 150 MG PO (08:22)
[2023-02-04] MEDS: atorvastatin 40 mg Tablet 20 MG PO (08:22)
[2023-02-04] MEDS: insulin lispro 100 unit/1 mL SUBCUT ×4 (08:22→20:38)
[2023-02-04] MEDS: methylPREDNISolone sod succ 40 MG in water for injection-sterile 1 ML 12 MG IVP (08:23)
[2023-02-04] MEDS: insulin glargine 100 units/1 mL 65 UNIT SUBCUT ×2 (08:24→18:02)
[2023-02-04 09:02] LABS: Troponin 5 6HR 15.82 ng/L (0-10)
[2023-02-04 09:04] LABS: Troponin 5 6HR Delta 3.82 ng/L (0-12)
[2023-02-04 12:36] LABS: Glucose Point of Care 262 mg/dL (70-110)
[2023-02-04] MEDS: pantoprazole 40 mg SDV IVP (12:38)
[2023-02-04 12:40] LABS: Glucose Point of Care 224 mg/dL (70-110)
--- NOTE | 2023-02-04 15:54 | FL_ITS ---
WS: [id number] MODIFIED BARIUM SWALLOW TECHNIQUE: Modified barium swallow with speech therapy using multiple consistencies. FLUOROSCOPY TIME: 2min [id number] # of spot films: 1 CLINICAL INFORMATION: Oropharyngeal dysphagia COMPARISON: None. FINDINGS: Multiple consistencies utilized. Penetration visualized with thin liquids. No sarah aspiration. No di fficulties with the barium tablet or clark cracker. IMPRESSION: 1. Penetration visualized with thin liquids. No sarah aspiration. 2. No difficulties with the barium tablet.
[2023-02-04] MEDS: lactobacillus 1 Tablet 1 TAB PO ×2 (16:29→20:21)
--- NOTE | 2023-02-04 16:38 | PM.PN ---
Subjective Subjective: Patient admitted for acute right lower extremity cellulitis and UTI from [facility]. She was placed on vancomycin and Zosyn. Her lactate level was greater than 2 at outlying facility. She had 1 out of 2 blood cultures that were positive however this was determined to be secondary to contamination. Patient reports to me that she had not been changing her own dressing twice a day as instructed. She also states that she has resumed smoking. She lives with a significant other that also smokes. She tells me she is wanting to quit. She explains that she has been seeing a vp analysis and been diagnosed with Sjogren's syndrome. She was started on prednisone for her dry eyes dry mouth and right wrist/hand pain and atrophy. She is currently taking prednisone 20 mg a day. He has received literature on a biologic for consideration. She notes that due to the prednisone her blood sugars have been markedly elevated. Vitals/I&O/Wt Last Vital Signs Temp 98.4 F 02/04/23 04:00 Pulse 54 L 02/04/23 16:00 Resp 13 02/04/23 16:00 BP 108/65 02/04/23 16:00 Pulse Ox 92 02/04/23 16:00 O2 Del Method Nasal Cannula 02/04/23 15:01 O2 Flow Rate 2 02/04/23 15:01 FiO2 28 02/04/23 00:00 02/04/23 02/04/23 02/04/23 06:59 14:59 22:59 Intake Total 1350.000 / 2262.000 51 / 51 Output Total 2200 / 3500 Balance -850.000 / -1238.000 51 / Weight last 48 hrs Weight 133.991 kg Weight 136.985 kg Physical Exam Narrative: Obese white female in no acute distress at time of examination Neurologic: Alert and oriented x3 exam is nonfocal heart: Regular normal S1-S2 without murmurs clicks gallops or rubs Lungs: Expiratory wheezes heard throughout. Prolonged expiratory phase Abdomen: Soft nontender nondistended positive bowel sounds no hepatosplenomegaly palpable Extremities bilateral lower extremity venous stasis changes. There is an ulceration in the mid joe of the right lower extremity. This shows very minimal yellow slough material. No erythema or edema or to this area. The right lower extremity has a hole is more edematous than the left this is a nonpitting edema. Urinary Catheter Management: Stanley: Cath Placed During This Visit: yes Reason for Continuing Indwelling Catheter: Accurate Measurement of Urinary Output in Critically Ill Patients Urinary Catheter Date of Insertion: 02/02/23 Data 02/04/23 04:22 02/04/23 04:22 Micro: Microbiology 02/02/23 13:42 Gram Stain - Final Sputum - Expectorated Sputum Sputum Culture - Final 02/02/23 13:42 Urine Culture - Final Urine,Clean Catch 02/02/23 14:11 Blood Culture - Preliminary Blood NEGATIVE TO DATE 02/02/23 14:07 Blood Culture - Preliminary Blood NEGATIVE TO DATE A&P Assessment and plan (1) Cellulitis: Has responded to vancomycin and Zosyn. Unclear if cellulitis was the underlying cause of sepsis. No wound cultures were taken at at [facility]. Qualifiers: Site of cellulitis: extremity Site of cellulitis of extremity: lower extremity Laterality: right Qualified Code(s): L03.115 - Cellulitis of right lower limb (2) UTI (urinary tract infection): Due to E. coli this time. Resistance to ampicillin sulbactam Cipro Levaquin nitrofurantoin Patient lists sulfa allergy. The only oral antibiotic we could use is Bactrim which has sulfa in it. Nurse and pharmacy to ascertain the significance of allergy. Otherwise will need IV antibiotics. Case management aware. Frequent UTIs requiring antibiotics. Would recommend outpatient ID consult. (3) Acute bronchitis due to Rhinovirus: Patient at baseline oxygen status. Patient to receive supportive care for rhinovirus. 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 Consideration to wound infection and recurrent UTIs. May need to wean from prednisone until wound healing occurs. (5) Nicotine dependence, cigarettes, with other nicotine-induced disorders: Explained to patient that continued smoking may result in amputation as well as other serious medical conditions such as worsening of COPD worsening respiratory failure coronary artery disease stroke kidney disease etc. Patient states understanding although patient's wound care nurse practitioner reports that patient has been unable to quit in the past. (6) Sleep apnea: Per documentation patient does not wear CPAP. I will inquire further. 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 Increase sliding scale insulin to the high dose regimen. (8) Hypertension: Currently normotensive on home regimen consisting of: Lasix 40 mg twice daily lisinopril 40 mg daily spironolactone 50 mg daily. Qualifiers: Hypertension type: essential hypertension Qualified Code(s): I10 - Essential (primary) hypertension (9) Atrial fibrillation: Qualifiers: Atrial fibrillation type: paroxysmal Qualified Code(s): I48.0 - Paroxysmal atrial fibrillation (10) COPD (chronic obstructive pulmonary disease): Qualifiers: COPD type: chronic bronchitis Chronic bronchitis type: simple Qualified Code(s): J41.0 - Simple chronic bronchitis Plan No prior case management patient has a CPAP at home but is interested in a BiPAP. Will perform overnight pulse oximetry. Spoke with pharmacist Ramirez multiple times regarding history of antibiotic use this year well as preventative measures against infections such as biotic and cranberry supplement. Unfortunately no cranberry supplement is available at this hospital. And the probiotic will be Florinef consisting of lactobacillus. Attestations Medical Necessity Statement*: Requires further hospitalization for management of acute metabolic encephalopathy in setting of right lower limb cellulitis, UTI, aspiration pneumonitis with hypercapnic respiratory failure in setting of rhinovirus bronchitis leading to COPD exacerbation Coding Level of Care Code Acute Code for [facility] Fwd Diagnoses Cellulitis L03.115 Site of cellulitis: extremity Site of cellulitis of extremity: lower extremity Laterality: right UTI (urinary tract infection) N39.0 Acute bronchitis due to Rhinovirus J20.6 Mononeuritis multiplex G58.7 Nicotine dependence, cigarettes, with other nicotine-induced disorders F17.218 Sleep apnea G47.33 Sleep apnea type: obstructive Uncontrolled type 2 diabetes mellitus with polyneuropathy E11.42; E11.65 Hypertension I10 Hypertension type: essential hypertension Atrial fibrillation I48.0 Atrial fibrillation type: paroxysmal COPD (chronic obstructive pulmonary disease) J41.0 COPD type: chronic bronchitis Chronic bronchitis type: simple
[2023-02-04 17:28] LABS: Glucose Point of Care 344 mg/dL (70-110)
[2023-02-04 20:18] LABS: Glucose Point of Care 330 mg/dL (70-110)
[2023-02-04] MEDS: sulfamethoxazole-trimeth DS 160-800 mg Tablet 1 TAB PO (20:21)
[2023-02-04] MEDS: CLONazepam 0.5 mg Tablet PO (20:22)
[2023-02-04] MEDS: bisacodyl 5 mg Tablet 10 MG PO (20:22)
[2023-02-05] VITALS (16 sets, daily range): BP systolic 121–172; BP diastolic 60–96; PULSE 55–82; RESP 14–25; TEMP 36.9; O2SAT 90–94
[2023-02-05] MEDS: vancomycin 1,500 MG/300 ML PIGGYBACK 200 MG IV (02:48)
[2023-02-05] MEDS: acetaminophen 325 mg Tablet 650 MG PO (04:54)
[2023-02-05] MEDS: buPROPion XL (24 HR) 300 mg Tablet PO (05:16)
[2023-02-05] MEDS: ipratropium-albuterol 3 mL Neb INHALATION ×3 (05:28→11:10)
[2023-02-05] MEDS: insulin glargine 100 units/1 mL 65 UNIT SUBCUT (06:18)
--- NOTE | 2023-02-05 06:32 | PC.NURSE ---
Walked 1 lap around nurses station, returned to room to chair. tolerated well.
[2023-02-05 06:43] LABS: Anion Gap 12.7 (5-19); Blood Urea Nitrogen 26 mg/dL (8-23); Calcium 9.2 mg/dL (8.5-10.5); Carbon Dioxide 26 mmol/L (22-29); Chloride 106 mmol/L (98-107); Glomerular Filtration Rate 63.4 mL/min (90-130); Glucose 212 mg/dL (65-115); Osmolality Calculated 301 mOsm/kg (285-295); Potassium 4.7 mmol/L (3.5-5.1); Sodium 140 mmol/L (136-145)
[2023-02-05] MEDS: ARIPiprazole 10 mg Tablet 20 MG PO (08:26)
[2023-02-05] MEDS: sertraline 100 mg Tablet 150 MG PO (08:27)
[2023-02-05] MEDS: gabapentin 300 mg Capsule 600 MG PO (08:27)
[2023-02-05] MEDS: rivaroxaban 10 mg Tablet 20 MG PO (08:27)
[2023-02-05] MEDS: predniSONE 20 mg Tablet PO (08:27)
[2023-02-05] MEDS: sulfamethoxazole-trimeth DS 160-800 mg Tablet 1 TAB PO (08:27)
[2023-02-05] MEDS: lactobacillus 1 Tablet 1 TAB PO (08:28)
[2023-02-05] MEDS: insulin lispro 100 unit/1 mL SUBCUT ×2 (08:28→11:59)
[2023-02-05] MEDS: nicotine 14 mg Patch 1 PATCH TRANSDERMA (08:30)
[2023-02-05] MEDS: budesonide 0.5 mg/2 mL Neb INHALATION (08:39)
[2023-02-05 08:40] LABS: Glucose Point of Care 194 mg/dL (70-110)
[2023-02-05 08:40] LABS: Glucose Point of Care 169 mg/dL (70-110)
--- NOTE | 2023-02-05 11:10 | P.DS_ITS ---
Discharge Providers Date of Admission: 02/02/23 11:30 Date of Discharge: February 05, 2023 Attending Provider at Admission: Donny Evans MD Attending Provider at Discharge: Dario Hilario DO Consults: None Primary Care Provider: LILLIE Pleitez Diagnoses at Discharge Discharge Diagnosis (1) Cellulitis: Status: Acute Qualifiers: Site of cellulitis: extremity Site of cellulitis of extremity: lower extremity Laterality: right Qualified Code(s): L03.115 - Cellulitis of right lower limb (2) UTI (urinary tract infection): Status: Acute (3) Acute bronchitis due to Rhinovirus: Status: Acute (4) Mononeuritis multiplex: Status: Chronic (5) Nicotine dependence, cigarettes, with other nicotine-induced disorders: Status: Chronic (6) Sleep apnea: Status: Chronic Qualifiers: Sleep apnea type: obstructive Qualified Code(s): G47.33 - Obstructive sleep apnea (adult) (pediatric) (7) Uncontrolled type 2 diabetes mellitus with polyneuropathy: Status: Chronic (8) Hypertension: Status: Chronic Qualifiers: Hypertension type: essential hypertension Qualified Code(s): I10 - Essential (primary) hypertension (9) Atrial fibrillation: Status: Acute Qualifiers: Atrial fibrillation type: paroxysmal Qualified Code(s): I48.0 - Paroxysmal atrial fibrillation (10) COPD (chronic obstructive pulmonary disease): Status: Chronic Qualifiers: COPD type: chronic bronchitis Chronic bronchitis type: simple Qualified Code(s): J41.0 - Simple chronic bronchitis Reason for Visit Reason for Visit: direct admit Brief History: Patient was found to have sepsis with an elevated lactic acid level. She had a UTI and her wounds appeared to possibly be infected. Hospital Course Hospital Course Patient was admitted for IV antibiotics vancomycin and Zosyn. Her wound looked up out her usual. It was determined that she had an E. coli UTI from [facility] paperwork. The only oral antibiotic that it was sensitive to was Bact rim. She listed sulfa as an allergy. Since she could not recall the allergy we started Bactrim in the hospital with no adverse event thus far. She is having no side effects. I spoke with Lois from wound care and informed her of the hospitalization. There is that perhaps the wound was not significantly infected I do not have any wound cultures that were obtained initially. She is to continue follow-up with Lois weekly. This week it will be on . I had a long talk with the patient with nurse at bedside regarding the patient's predicament. She has been strongly advised to quit smoking and to maintain blood sugars less than 200. The current plan is smoking cessation with significant other to also stop smoking. I detailed the type of cleaning required in the home including washing gil laundering drapes and rugs and washing bedding and close. Also discussed stress management other than cigarettes and asked her to follow-up with psychiatry and/or psychology with cognitive behavioral therapy or self-help book. Lastly I asked her to connect with her strickler attendant for a detailed sliding scale, consideration for insulin pump. I have doubled her Lantus insulin dose to 65 units every 12 hours and this has been effective in the hospital. She admits that she will need better portion control at home. Regarding her Sjogren's syndrome and mono neuritis multiplex. I advised we go to a lower dose of prednisone in order to stabilize her blood sugars. She will be discharged on prednisone 10 mg daily. Unfortunately with her persistent wound infection and UTIs we are limited with our antibiotics at this time. And thus it seems in her best interest to decrease the prednisone is much as possible. Also it should be noted that we performed a overnight pulse oximetry monitoring which resulted in 8 minutes of desaturation. This does not qualify her for a change to BiPAP. Physical Exam Narrative: Obese white female in no acute distress. Heart is regular normal S1-S2 without loud murmur. Lungs diminished breath sounds prolonged expiratory expiratory phase. Less wheezing. Abdomen soft nontender nondistended positive bowel sounds. Extremities. Bilateral lower extremity venous stasis changes the ulceration on the mid right joe appears to be in a healing phase. There is minimal yellow slough no significant surrounding erythema edema or warmth to this area. Urinary Catheter Management: Stanley: Cath Placed During This Visit: yes Reason for Continuing Indwelling Catheter: Accurate Measurement of Urinary Output in Critically Ill Patients Urinary Catheter Date of Insertion: 02/02/23 Discharge Data Studies Completed and Pending Completed Studies During Hospitalization Category Date Time Status CT chest wo con [id number] Stat Cat Scan 02/02/23 13:[address] lower leg RT wo con* [id number] Routine Cat Scan 02/02/23 13:44 Completed [place] barium swallow modifd [id number] Routine Exams 02/04/23 15:54 Completed XR shoulder RT min 2V* [id number] Routine Exams 02/02/23 13:46 Completed Pending at discharge Category Date Time Status Blood Culture Stat Lab 02/02/23 14:11 Results Radiology Impressions Chest CT 02/02/23 13:25 IMPRESSION: There is some patchy early inflammatory appearance at the lung bases right more so than left along with some suspected trace pleural fluid. This can also be seen with some aspiration related sequela. Lower Extremity CT 02/02/23 13:44 IMPRESSION: 1. There is subcutaneous fluid stranding overall with lower leg and foot predominance suggestive of edema and inflammation. No organized abscess type collection with air-fluid level is currently appreciated. 2. There is some skin undulation which could be seen with previous injury related sequela for example at the anterior soft tissues. No underlying cortical irregularity at this site is currently appreciated. 3. There is some prominence of the subcutaneous vessels with varicosity type appearance. If there is concern for venous related issue or insufficiency then consider dedicated venous lower extremity ultrasound. Shoulder X-Ray 02/02/23 13:46 IMPRESSION: Nonacute findings. Laboratory Results WBC 10.83 10^3/uL (3.29-11.43) 02/04/23 04:22 RBC 4.05 10^6/uL (3.85-5.65) 02/04/23 04:22 Hgb 11.70 g/dL (11.27-16.99) 02/04/23 04:22 Hct 37.1 % (36-47) 02/04/23 04:22 MCV 91.6 fl (85-98) 02/04/23 04:22 MCH 28.9 pg (27-33) 02/04/23 04:22 MCHC 31.5 g/dL (30-55) 02/04/23 04:22 RDW 12.3 % (12.1-15.1) 02/04/23 04:22 Plt Count 192 10^3/cmm (157-399) 02/04/23 04:22 MPV 9.9 fL (7.4-10.4) 02/04/23 04:22 Neut % (Auto) 91.0 % 02/04/23 04:22 Lymph % (Auto) 4.4 % 02/04/23 04:22 [place] % (Auto) 4.0 % 02/04/23 04:22 Eos % (Auto) 0.0 % 02/04/23 04:22 Baso % (Auto) 0.1 % 02/04/23 04:22 Neut # (Auto) 9.86 10^3/uL (1.8-7.7) H 02/04/23 04:22 Lymph # (Auto) 0.5 10^3/uL (0.8-4.8) L 02/04/23 04:22 [place] # (Auto) 0.4 10^3/uL (0.2-0.9) 02/04/23 04:22 Eos # (Auto) 0.0 10^3/uL (0.0-0.8) 02/04/23 04:22 Baso # (Auto) 0.0 10^3/uL (0.0-0.1) 02/04/23 04:22 Nucleated RBC % (auto) 0 % 02/04/23 04:22 Nucleated RBCs # 0.0 /100WBC 02/04/23 04:22 PT 16.30 SECONDS (12.1-14.9) H 02/02/23 11:02 INR 1.27 (0.8-1.2) H 02/02/23 11:02 APTT 33.4 SECONDS (23.9-36.7) 02/02/23 11:02 D-Dimer 0.93 ug/mLFEU (0-0.59) H 02/02/23 11:02 Specimen Type Arterial 02/02/23 11:44 Sample Site Radial, left 02/02/23 11:44 ABG pH 7.36 (7.35-7.45) 02/02/23 11:44 ABG pCO2 47.8 mmHg (35-45) H 02/02/23 11:44 ABG pO2 67.2 mmHg (80.0-100.0) L 02/02/23 11:44 ABG HCO3 27.1 mmol/L (22-26) H 02/02/23 11:44 ABG O2 Saturation 92.8 02/02/23 11:44 ABG Base Excess 1.1 mmol/L (-2.0-2.0) 02/02/23 11:44 Vish Test Pos 02/02/23 11:44 A-a O2 Gradient 17.0 mmHg (5-10) H 02/02/23 11:44 Hematocrit 38.5 % (37-47) 02/02/23 11:44 Hgb O2 Saturation 90.0 % (95-100) L 02/02/23 11:44 Carboxyhemoglobin 2.5 %THgb (0.4-20.1) 02/02/23 11:44 Methemoglobin 0.5 % (0.4-1.5) 02/02/23 11:44 Total Hemoglobin 12.5 g/dL (12-16) 02/02/23 11:44 Sodium 137.0 mmol/L (131-143) 02/02/23 11:44 Potassium 4.1 mmol/L (3.5-5.0) 02/02/23 11:44 Glucose 187.0 mg/dL (70-115) H 02/02/23 11:44 Ionized Calcium 1.3 mmol/L (1.1-1.4) 02/02/23 11:44 O2 Delivery Device Nc 02/02/23 11:44 O2 Liters/Min 4.0 % 02/02/23 11:44 FiO2 36.0 % 02/02/23 11:44 Director Underwriter Sales ID [place] 02/02/23 11:44 Sodium 140 mmol/L (136-145) 02/05/23 05:57 Potassium 4.7 mmol/L (3.5-5.1) 02/05/23 05:57 Chloride 106 mmol/L (98-107) 02/05/23 05:57 Carbon Dioxide 26 mmol/L (22-29) 02/05/23 05:57 Anion Gap 12.7 (5-19) 02/05/23 05:57 BUN 26 mg/dL (8-23) H 02/05/23 05:57 Creatinine 0.9 mg/dL (0.5-0.9) 02/05/23 05:57 GFR Calculation 63.4 mL/min (90-130) L 02/05/23 05:57 Glucose 212 mg/dL (65-115) H 02/05/23 05:57 POC Glucose 169 mg/dL (70-110) H 02/05/23 07:24 Estimat Average Glucose 217 02/03/23 04:24 Hemoglobin A1c 9.2 % (4.0-6.0) H 02/03/23 04:24 Calculated Osmolality 301 mOsm/kg (285-295) H 02/05/23 05:57 Lactic Acid 0.6 mmol/L (0.5-2.2) 02/02/23 14:11 Calcium 9.2 mg/dL (8.5-10.5) 02/05/23 05:57 Phosphorus 3.5 mg/dL (2.5-4.5) 02/03/23 04:24 Magnesium 1.9 mg/dL (1.7-2.3) 02/03/23 04:24 Total Bilirubin 0.2 mg/dL (0.15-1.2) 02/04/23 04:22 AST 14 U/L (0-32) 02/04/23 04:22 ALT 17 U/L (0-33) 02/04/23 04:22 Alkaline Phosphatase 61 U/L (35-105) 02/04/23 04:22 Ammonia 38 umol/L (11-51) 02/02/23 14:11 Troponin T Baseline 12 ng/L (0-10) H 02/04/23 02:27 Troponin T 120 Minute 12.78 ng/L (0-10) H 02/04/23 04:22 Delta Troponin T 0.78 ABS# (0-10) 02/04/23 04:22 Troponin T Hi Sens 6Hr 15.82 ng/L (0-10) H 02/04/23 08:31 Troponin T Hi Sens 6Hr Delta 3.82 ng/L (0-12) 02/04/23 08:31 NT-Pro-B Natriuret Pep 888 pg/mL (0-125) H 02/02/23 11:02 Total Protein 5.7 g/dL (6.6-8.7) L 02/04/23 04:22 Albumin 3.5 g/dL (3.5-5.2) 02/04/23 04:22 Globulin 2.2 g/dL (1.3-4.6) 02/04/23 04:22 Triglycerides 90 mg/dL (0-150) 02/03/23 04:24 Cholesterol 106 mg/dL (0-200) 02/03/23 04:24 LDL Cholesterol, Calc 51 mg/dL (50-129) 02/03/23 04:24 HDL Cholesterol 37 mg/dL (60-100) L 02/03/23 04:24 LDL/HDL Ratio 1.38 RATIO (0.00-3.22) 02/03/23 04:24 Cholesterol/HDL Ratio 2.86 mg/dL (0.0-4.40) 02/03/23 04:24 Vitamin B12 483 pg/mL (232-1245) 02/02/23 11:02 Folate 15.3 ng/mL (4.8-37.3) 02/03/23 04:24 Procalcitonin 0.29 ng/mL (0-0.5) 02/02/23 11:02 TSH 1.23 uIU/mL (0.27-4.20) 02/02/23 11:02 Urine Color Yellow (Yellow) 02/02/23 13:42 Urine Appearance Cloudy (CLEAR) A 02/02/23 13:42 Urine pH 5 (5-7) 02/02/23 13:42 Ur Specific [place] 1.015 (1.005-1.030) 02/02/23 13:42 Urine Protein Trace (Negative) 02/02/23 13:42 Urine Glucose (UA) Norm (Normal) 02/02/23 13:42 Urine Ketones Negative (Negative) 02/02/23 13:42 Urine Blood 3+ (Negative) H 02/02/23 13:42 Urine Nitrate Positive (Negative) H 02/02/23 13:42 Urine Bilirubin Neg (Negative) 02/02/23 13:42 Urine Urobilinogen Norm mg/dL (Negative) 02/02/23 13:42 Ur Leukocyte Esterase 2+ (Negative) H 02/02/23 13:42 Urine RBC 25-40 /hpf (0-2) H 02/02/23 13:42 Urine WBC >100 /hpf (0-5) H 02/02/23 13:42 Ur Squamous Epith Cells 0-4 /hpf (0-5) H 02/02/23 13:42 Amorphous Sediment Not Reportable 02/02/23 13:42 Urine Bacteria 2+ /hpf (NONE) H 02/02/23 13:42 Nasal Influ A H1 2008 PCR Not detected (NOT DETECT) 02/02/23 13:42 Vancomycin Trough 16.0 ug/mL (10-15) H 02/04/23 01:14 Adenovirus (PCR) Not detected (NOT DETECT) 02/02/23 13:42 C. pneumoniae DNA (PCR) Not detected (NOT DETECT) 02/02/23 13:42 Coronavirus 229E (PCR) Not detected (NOT DETECT) 02/02/23 13:42 Human Metapneumovir PCR Not detected (NOT DETECT) 02/02/23 13:42 Influenza A (H1) PCR Not detected (NOT DETECT) 02/02/23 13:42 Influenza A (H3) PCR Not detected (NOT DETECT) 02/02/23 13:42 Influenza Type A (PCR) Not detected (NOT DETECT) 02/02/23 13:42 Influenza Type B (PCR) Not detected (NOT DETECT) 02/02/23 13:42 M. pneumoniae (PCR) Not detected (NOT DETECT) 02/02/23 13:42 Parainfluenza 1 (PCR) Not detected (NOT DETECT) 02/02/23 13:42 Parainfluenza 2 (PCR) Not detected (NOT DETECT) 02/02/23 13:42 Parainfluenza 3 (PCR) Not detected (NOT DETECT) 02/02/23 13:42 Parainfluenza 4 (PCR) Not detected (NOT DETECT) 02/02/23 13:42 RSV Type A (PCR) Not detected (NOT DETECT) 02/02/23 13:42 RSV Type B (PCR) Not detected (NOT DETECT) 02/02/23 13:42 Entero/Rhino (PCR) Detected (NOT DETECT) A 02/02/23 13:42 SARS-CoV-2 (PCR) Not detected (NOT DETECT) 02/02/23 13:42 Vitals Last Vital Signs Temp 98.4 F 02/05/23 04:00 Pulse 72 02/05/23 10:00 Resp 18 02/05/23 10:00 BP 147/70 02/05/23 10:00 Pulse Ox 92 02/05/23 10:00 O2 Del Method Nasal Cannula 02/05/23 08:45 O2 Flow Rate 2 02/05/23 08:45 FiO2 28 02/04/23 00:00 Discharge Plan Discharge Patient Disposition: Home Condition: Fair Prescriptions: New sulfamethoxazole-trimethoprim 800-160 mg Tablet 1 tab PO BID@0900,2100 5 Days Qty: 9 0RF atorvastatin 40 mg Tablet 20 mg PO BEDTIME Qty: 30 0RF Continued (DME) Blood Glucose Test Strip See Rx Instructions .ROUTE .MEDSUPPLY Qty: 100 1RF Rx Instructions: As directed (DME) oxygen-air delivery systems Device See Rx Instructions .Route Rx Instructions: As directed acetaminophen 325 mg tablet 325 mg PO QID PRN (Reason: Pain) diphenhydramine HCl [Benadryl Allergy] 25 mg tablet 25 mg PO TID PRN (Reason: Allergy Symptoms) ibuprofen 200 mg tablet 200 mg PO Q6H PRN (Reason: Pain) metformin 500 mg tablet extended release 24 hr 500 mg PO BID 30 Days Qty: 60 0RF nitroglycerin [Nitrostat] 0.4 mg tablet, sublingual 0.4 mg SUBLINGUAL Q5M PRN (Reason: chest pain) Qty: 25 3RF Rx Instructions: do not exceed 3 doses per episode (DME) pen needle, diabetic [BD Ultra-Fine Corine Pen Needle] 32 gauge x 5/32 needle See Rx Instructions .Route Qty: 100 3RF Rx Instructions: use as directed for insulin injections twice daily prednisone 10 mg tablet See Rx Instructions PO DAILY Qty: 120 1RF Rx Instructions: 40mg po qday x 7 dyas, then 30mg po qday x 7 days, then 20mg po qday orally daily; albuterol sulfate 2.5 mg /3 mL (0.083 %) solution for nebulization See Rx Instructions .ROUTE .COMPLEX Qty: 180 11RF Dose Instruction: Inhale 1 vial via nebulizer every 6 hours Rx Instructions: Inhale 1 vial via nebulizer every 6 hours fluticasone propionate [Flonase Allergy Relief] 50 mcg/actuation spray,suspension 2 spray intranasal DAILY Qty: 16 1RF Rx Instructions: administer into each nostril insulin aspart U-100 [Novolog FlexPen U-100 Insulin] 100 unit/mL (3 mL) insulin pen 10 unit SUBCUT .tidac Qty: 9 0RF (DME) blood-glucose meter [Blood Glucose Monitoring] Kit See Rx Instructions .ROUTE .MEDSUPPLY Qty: 1 0RF Rx Instructions: As directed (DME) FreeStyle Jack 2 Sensor Kit See Rx Instructions .ROUTE .MEDSUPPLY Qty: 2 3RF Rx Instructions: pt having hypoglycemia (DME) FreeStyle Jack 2 [place] Misc See Rx Instructions .ROUTE .MEDSUPPLY Qty: 1 0RF Rx Instructions: As directed budesonide-formoterol [Symbicort] 160-4.5 mcg/actuation HFA aerosol inhaler See Rx Instructions .ROUTE .COMPLEX Qty: 10.2 11RF Dose Instruction: Inhale 2 puffs by mouth twice daily Rx Instructions: Inhale 2 puffs by mouth twice daily albuterol sulfate 90 mcg/actuation HFA aerosol inhaler See Rx Instructions .ROUTE .COMPLEX Qty: 8.5 11RF Dose Instruction: Inhale 2 puffs by mouth every 8 hours as needed for shortness of breath or wheezing Rx Instructions: Inhale 2 puffs by mouth every 8 hours as needed for shortness of breath or wheezing gabapentin 600 mg tablet See Rx Instructions .ROUTE .COMPLEX Qty: 90 0RF Dose Instruction: Take 1 tablet by mouth 3 times a day Rx Instructions: Take 1 tablet by mouth 3 times a day aripiprazole [Abilify] 20 mg tablet 20 mg PO DAILY Qty: 30 2RF bupropion HCl [Wellbutrin XL] 300 mg tablet extended release 24 hr 300 mg PO QAM Qty: 30 2RF clonazepam 0.5 mg tablet 0.5 mg PO DAILY PRN (Reason: severe anxiety) Qty: 15 2RF zolpidem [Ambien] 5 mg tablet 5 mg PO .HS PRN (Reason: sleep) Qty: 30 2RF sertraline [Zoloft] 100 mg tablet 150 mg PO DAILY Qty: 45 2RF modafinil 200 mg tablet 200 mg PO QAM Qty: 30 2RF furosemide 40 mg tablet 40 mg PO BID Qty: 180 3RF lisinopril 40 mg tablet 40 mg PO DAILY Qty: 90 3RF potassium chloride 20 mEq tablet extended release 20 meq PO DAILY Qty: 90 3RF Xarelto 20 mg tablet 20 mg PO DAILY Qty: 90 3RF spironolactone 50 mg tablet 50 mg PO DAILY Qty: 90 3RF cholecalciferol (vitamin D3) 1,250 mcg (50,000 unit) capsule See Rx Instructions .ROUTE .COMPLEX Qty: 12 0RF Dose Instruction: Take 1 capsule by mouth once a week Rx Instructions: Take 1 capsule by mouth once a week on saturday Combivent Respimat 20-100 mcg/actuation mist See Rx Instructions .ROUTE .COMPLEX Qty: 4 3RF Dose Instruction: Inhale 1 puff by mouth every 6 hours Rx Instructions: Inhale 1 puff by mouth every 6 hours Changed Lantus Solostar U-100 Insulin 100 unit/mL (3 mL) insulin pen See Rx Instructions .ROUTE .COMPLEX Qty: 9 3RF Dose Instruction: Inject 55 units subcutaneously in the monring Rx Instructions: Inject 65 units subcutaneously q12h Discharge Orders: Discharge Order (Routine); Ordered 02/05/23 Ordered By: Dario Hilario Referrals: [facility] [Outside] Discharge Diet: As Directed and Diabetic Discharge Activity: Resume usual activity Patient Instructions: Opioid Safety Plan of Treatment: To improve your health you must: 1. Stop smoking. And obtaining assistance through your psychiatric care for psychotherapy. You are already on medications that would assist with smoking cessation. Other options are self-help books regarding addiction and why return to certain habits to help with our stress. 2. Blood sugar control. Please note that your Lantus dose has been increased to twice a day. It appears the major issue is portion control at home. I urged you to contact your strickler attendant for your dietary resources. Close follow- up with strickler attendant. Consider a sliding scale of short acting insulin through endocrinology assistance. 3. You are currently on the antibiotic called Bactrim. This has a sulfa component. So far you have had no adverse events. Be on the look out for any rash or swelling and report to your PCP immediately. Discharge Attestations Time Spent in Discharge Care*: greater than 30 min Quality Metrics Clinical Quality Measures [ No reported AMI, CVA or VTE this stay] Coding Level of Care Code Acute Code for [facility] Fwd Diagnoses Cellulitis L03.115 Site of cellulitis: extremity Site of cellulitis of extremity: lower extremity Laterality: right UTI (urinary tract infection) N39.0 Acute bronchitis due to Rhinovirus J20.6 Mononeuritis multiplex G58.7 Nicotine dependence, cigarettes, with other nicotine-induced disorders F17.218 Sleep apnea G47.33 Sleep apnea type: obstructive Uncontrolled type 2 diabetes mellitus with polyneuropathy E11.42; E11.65 Hypertension I10 Hypertension type: essential hypertension Atrial fibrillation I48.0 Atrial fibrillation type: paroxysmal COPD (chronic obstructive pulmonary disease) J41.0 COPD type: chronic bronchitis Chronic bronchitis type: simple
[2023-02-05 11:32] LABS: Glucose Point of Care 188 mg/dL (70-110)
--- NOTE | 2023-02-05 15:07 | PC.NURSE ---
All D/C instructions educated to patient. IV and foly removed. patient out of facility at this time transported by family
== END 2023-02-05 15:13 | disposition home health service (06) | DRG 602 ==
PROVIDERS: Student in an Organized Health Care Education/Training Program; Admitting Provider Student in an Organized Health Care Education/Training Program; PCP Nurse Practitioner Family; Visit Provider Internal Medicine
DX: L03.115 Cellulitis of right lower limb (principal); G93.41 Metabolic encephalopathy; N39.0 Urinary tract infection, site not specified; J44.0 Chronic obstructive pulmonary disease with (acute) lower respiratory infection; J44.1 Chronic obstructive pulmonary disease with (acute) exacerbation; F31.81 Bipolar II disorder; Z68.41 Body mass index [BMI] 40.0-44.9, adult; B96.20 Unspecified Escherichia coli [E. coli] as the cause of diseases classified elsewhere; Z88.2 Allergy status to sulfonamides; F17.210 Nicotine dependence, cigarettes, uncomplicated; M35.00 Sjogren syndrome, unspecified; E11.42 Type 2 diabetes mellitus with diabetic polyneuropathy; E11.65 Type 2 diabetes mellitus with hyperglycemia; E11.51 Type 2 diabetes mellitus with diabetic peripheral angiopathy without gangrene; Z79.84 Long term (current) use of oral hypoglycemic drugs; Z79.51 Long term (current) use of inhaled steroids; Z79.4 Long term (current) use of insulin; Z79.01 Long term (current) use of anticoagulants; B97.89 Other viral agents as the cause of diseases classified elsewhere; J20.9 Acute bronchitis, unspecified; I50.9 Heart failure, unspecified; I11.0 Hypertensive heart disease with heart failure; G47.33 Obstructive sleep apnea (adult) (pediatric); F43.12 Post-traumatic stress disorder, chronic; F12.20 Cannabis dependence, uncomplicated; M25.511 Pain in right shoulder; M79.604 Pain in right leg; W01.0XXA Fall on same level from slipping, tripping and stumbling without subsequent striking against object, initial encounter; I48.0 Paroxysmal atrial fibrillation; Z99.89 Dependence on other enabling machines and devices; E66.9 Obesity, unspecified; E86.0 Dehydration
CPT/HCPCS: 36415; 36416; 36600; 71250; 73030; 73700; 74230; 80048; 80051; 80053; 80061; 80202; 81001; 82140; 82330; 82607; 82746; 82805; 82962; 83036; 83605; 83735; 83880; 84100; 84145; 84443; 84484; 85025; 85378; 85610; 85730; 86403; 87040; 87070; 87086; 87205; 87486; 87581; 87633; 92610; 92611; 93005; 94640; 94660; 94664; 96372; 96376; 97110; 97161; C9113; J1170; J1815; J2270; J2543; J2920; J3370; J7030; J7512; J7626

== ENCOUNTER → 2023-02-11 12:52 | Outpatient (BNVA) | payer MEDICARE, MEDICAID, SELFPAY ==
[2022-09-12 10:56] VITALS: BP 146/73; BMI 42.8
== END ==
PROVIDERS: PCP Nurse Practitioner Family; Visit Provider Internal Medicine
DX: R76.8 Other specified abnormal immunological findings in serum (principal); G58.7 Mononeuritis multiplex; R29.898 Other symptoms and signs involving the musculoskeletal system
CPT/HCPCS: 99214

== ENCOUNTER → 2023-02-12 15:28 | Outpatient (BNVA) | payer MEDICARE, MEDICAID, SELFPAY ==
[2022-09-12 10:56] VITALS: BP 146/73; BMI 42.8
== END ==
PROVIDERS: PCP Nurse Practitioner Family; Visit Provider Nurse Practitioner Family
DX: E11.52 Type 2 diabetes mellitus with diabetic peripheral angiopathy with gangrene (principal); E11.622 Type 2 diabetes mellitus with other skin ulcer; L97.812 Non-pressure chronic ulcer of other part of right lower leg with fat layer exposed; D48.5 Neoplasm of uncertain behavior of skin; L82.1 Other seborrheic keratosis; I87.2 Venous insufficiency (chronic) (peripheral)
CPT/HCPCS: 11042; 11102; 17110; 99203; A6197; A6212

== ENCOUNTER → 2023-02-14 09:11 | Outpatient (BNVA) | payer MEDICARE, MEDICAID, SELFPAY ==
[2022-09-12 10:56] VITALS: BP 146/73; BMI 42.8
== END ==
PROVIDERS: PCP Nurse Practitioner Family; Visit Provider Nurse Practitioner Family
DX: N39.0 Urinary tract infection, site not specified (principal); J44.0 Chronic obstructive pulmonary disease with (acute) lower respiratory infection
CPT/HCPCS: 81000

== ENCOUNTER 2023-02-18 14:12 | Outpatient (CLI) | payer MEDICARE, MEDICAID, SELFPAY ==
[2022-09-12 10:56] VITALS: BP 146/73; BMI 42.8
--- NOTE | 2023-02-18 14:18 | XRR_ITS ---
PROCEDURE INFORMATION: Exam: XR Chest Exam date and time: 02/18/2023 2:33 PM Age: 62 years old Clinical indication: Condition or disease; Lung condition and disease; Copd; Additional info: J44.0 - chronic obstructive pulmonary disease with (acute. . . TECHNIQUE: Imaging protocol: Radiologic exam of the chest. Views: 2 views. COMPARISON: CT chest con [id number] 02/02/2023 2:32 PM FINDINGS: Lungs: Coarse basilar lung markings are seen in the right lower lung field correlating with the CT findings. No acute appearing findings. Pleural spaces: Unremarkable. No pleural effusion. No pneumothorax. Heart/Mediastinum: Unremarkable. No cardiomegaly. Bones/joints: Unremarkable. XR/XR chest 2V* [id number] IMPRESSION: Coarse basilar lung markings are seen in the right lower lung field correlating with the CT findings. No acute appearing findings.
== END 2023-02-18 14:13 | disposition home or self-care (01) ==
PROVIDERS: PCP Nurse Practitioner Family; Visit Provider Nurse Practitioner Family
DX: J44.0 Chronic obstructive pulmonary disease with (acute) lower respiratory infection (principal)
CPT/HCPCS: 71046

== ENCOUNTER → 2023-02-26 15:31 | Outpatient (BNVA) | payer MEDICARE, MEDICAID, SELFPAY ==
[2022-09-12 10:56] VITALS: BP 146/73; BMI 42.8
== END ==
PROVIDERS: PCP Nurse Practitioner Family; Visit Provider Nurse Practitioner Family
DX: E11.52 Type 2 diabetes mellitus with diabetic peripheral angiopathy with gangrene (principal); E11.622 Type 2 diabetes mellitus with other skin ulcer; L97.812 Non-pressure chronic ulcer of other part of right lower leg with fat layer exposed; S81.812A Laceration without foreign body, left lower leg, initial encounter; X58.XXXA Exposure to other specified factors, initial encounter; I10 Essential (primary) hypertension
CPT/HCPCS: 11042; 36415; 80048; 83880; A6197; A6253

== ENCOUNTER → 2023-03-05 14:49 | Outpatient (BNVA) | payer MEDICARE, MEDICAID, SELFPAY ==
[2022-09-12 10:56] VITALS: BP 146/73; BMI 42.8
== END ==
PROVIDERS: PCP Nurse Practitioner Family; Visit Provider Nurse Practitioner Family
DX: E11.52 Type 2 diabetes mellitus with diabetic peripheral angiopathy with gangrene (principal); E11.622 Type 2 diabetes mellitus with other skin ulcer; L97.812 Non-pressure chronic ulcer of other part of right lower leg with fat layer exposed; L97.822 Non-pressure chronic ulcer of other part of left lower leg with fat layer exposed
CPT/HCPCS: 11042; 11045; A6197; A6252; A6253

== ENCOUNTER → 2023-03-25 14:57 | Outpatient (BNVA) | payer MEDICARE, MEDICAID, SELFPAY ==
[2023-03-25 15:40] VITALS: BP 123/74; BMI 44.3
== END ==
PROVIDERS: PCP Nurse Practitioner Family; Visit Provider Nurse Practitioner Family
DX: N17.9 Acute kidney failure, unspecified (principal); L03.115 Cellulitis of right lower limb; Z79.899 Other long term (current) drug therapy
CPT/HCPCS: 80053

== ENCOUNTER → 2023-04-02 15:02 | Outpatient (BNVA) | payer MEDICARE, MEDICAID, SELFPAY ==
[2023-03-25 15:40] VITALS: BP 123/74; BMI 44.3
== END ==
PROVIDERS: PCP Nurse Practitioner Family; Visit Provider Thoracic Surgery (Cardiothoracic Vascular Surgery)
DX: E11.52 Type 2 diabetes mellitus with diabetic peripheral angiopathy with gangrene (principal); E11.622 Type 2 diabetes mellitus with other skin ulcer; L97.822 Non-pressure chronic ulcer of other part of left lower leg with fat layer exposed; L97.811 Non-pressure chronic ulcer of other part of right lower leg limited to breakdown of skin
CPT/HCPCS: 97597; 97598; A6197; A6251

== ENCOUNTER → 2023-04-10 10:00 | Outpatient (BNVA) | payer MEDICARE, MEDICAID, SELFPAY ==
[2023-03-25 15:40] VITALS: BP 123/74; BMI 44.3
== END ==
PROVIDERS: PCP Nurse Practitioner Family; Referring Provider Internal Medicine; Visit Provider Internal Medicine Pulmonary Disease
DX: J41.1 Mucopurulent chronic bronchitis (principal); I50.32 Chronic diastolic (congestive) heart failure; G47.33 Obstructive sleep apnea (adult) (pediatric); F17.210 Nicotine dependence, cigarettes, uncomplicated; Z99.89 Dependence on other enabling machines and devices; E66.01 Morbid (severe) obesity due to excess calories; Z68.41 Body mass index [BMI] 40.0-44.9, adult; R91.8 Other nonspecific abnormal finding of lung field
CPT/HCPCS: 99204

== ENCOUNTER → 2023-04-16 14:49 | Outpatient (BNVA) | payer MEDICARE, MEDICAID, SELFPAY ==
[2023-03-25 15:40] VITALS: BP 123/74; BMI 44.3
== END ==
PROVIDERS: PCP Nurse Practitioner Family; Visit Provider Nurse Practitioner Family
DX: E11.52 Type 2 diabetes mellitus with diabetic peripheral angiopathy with gangrene (principal); E11.622 Type 2 diabetes mellitus with other skin ulcer; L97.811 Non-pressure chronic ulcer of other part of right lower leg limited to breakdown of skin; L97.821 Non-pressure chronic ulcer of other part of left lower leg limited to breakdown of skin
CPT/HCPCS: 97597; A6197; A6251

== ENCOUNTER → 2023-04-23 12:52 | Outpatient (BNVA) | payer MEDICARE, MEDICAID, SELFPAY ==
[2023-03-25 15:40] VITALS: BP 123/74; BMI 44.3
== END ==
PROVIDERS: PCP Nurse Practitioner Family; Visit Provider Nurse Practitioner Family
DX: E11.52 Type 2 diabetes mellitus with diabetic peripheral angiopathy with gangrene (principal); E11.622 Type 2 diabetes mellitus with other skin ulcer; L97.811 Non-pressure chronic ulcer of other part of right lower leg limited to breakdown of skin; L97.821 Non-pressure chronic ulcer of other part of left lower leg limited to breakdown of skin
CPT/HCPCS: 97597; A6197; A6252

== ENCOUNTER → 2023-04-30 13:46 | Outpatient (BNVA) | payer MEDICARE, MEDICAID, SELFPAY ==
[2023-03-25 15:40] VITALS: BP 123/74; BMI 44.3
== END ==
PROVIDERS: PCP Nurse Practitioner Family; Visit Provider Thoracic Surgery (Cardiothoracic Vascular Surgery)
DX: E11.622 Type 2 diabetes mellitus with other skin ulcer (principal); L97.811 Non-pressure chronic ulcer of other part of right lower leg limited to breakdown of skin; L97.822 Non-pressure chronic ulcer of other part of left lower leg with fat layer exposed
CPT/HCPCS: 11042; 97597; A6197; A6251

== ENCOUNTER → 2023-05-29 12:00 | Outpatient (BNVA) | payer MEDICARE, MEDICAID, SELFPAY ==
[2023-03-25 15:40] VITALS: BP 123/74; BMI 44.3
== END ==
PROVIDERS: PCP Nurse Practitioner Family; Visit Provider Nurse Practitioner Family
DX: N39.0 Urinary tract infection, site not specified (principal); J10.1 Influenza due to other identified influenza virus with other respiratory manifestations; Z09 Encounter for follow-up examination after completed treatment for conditions other than malignant neoplasm
CPT/HCPCS: 81000; 87077; 87086; 87184

== ENCOUNTER → 2023-07-03 09:45 | Outpatient (BNVA) | payer MEDICARE, MEDICAID, SELFPAY ==
[2023-03-25 15:40] VITALS: BP 123/74; BMI 44.3
== END ==
PROVIDERS: PCP Nurse Practitioner Family; Visit Provider Nurse Practitioner Family
DX: N39.0 Urinary tract infection, site not specified (principal)
CPT/HCPCS: 87086

== ENCOUNTER → 2023-07-05 12:58 | Outpatient (BNVA) | payer MEDICARE, MEDICAID, SELFPAY ==
[2023-03-25 15:40] VITALS: BP 123/74; BMI 44.3
== END ==
PROVIDERS: PCP Nurse Practitioner Family; Visit Provider Specialist
DX: G58.7 Mononeuritis multiplex (principal); F17.210 Nicotine dependence, cigarettes, uncomplicated
CPT/HCPCS: 99214

== ENCOUNTER → 2023-07-08 11:47 | Outpatient (BNVA) | payer MEDICARE, MEDICAID, SELFPAY ==
[2023-03-25 15:40] VITALS: BP 123/74; BMI 44.3
== END ==
PROVIDERS: PCP Nurse Practitioner Family; Visit Provider Specialist
DX: G56.03 Carpal tunnel syndrome, bilateral upper limbs (principal); R29.898 Other symptoms and signs involving the musculoskeletal system
CPT/HCPCS: 95910; 95911

== ENCOUNTER → 2023-07-26 09:49 | Outpatient (BNVA) | payer MEDICARE, MEDICAID, SELFPAY ==
[2023-03-25 15:40] VITALS: BP 123/74; BMI 44.3
== END ==
PROVIDERS: PCP Nurse Practitioner Family; Visit Provider Nurse Practitioner Family
DX: N30.00 Acute cystitis without hematuria (principal); I10 Essential (primary) hypertension; E11.8 Type 2 diabetes mellitus with unspecified complications; R53.83 Other fatigue; I50.9 Heart failure, unspecified; E11.42 Type 2 diabetes mellitus with diabetic polyneuropathy; E11.65 Type 2 diabetes mellitus with hyperglycemia; H61.23 Impacted cerumen, bilateral; H65.04 Acute serous otitis media, recurrent, right ear
CPT/HCPCS: 80053; 80061; 81000; 83036; 84443; 85025

== ENCOUNTER → 2023-08-07 09:57 | Outpatient (BNVA) | payer MEDICARE, MEDICAID, SELFPAY ==
[2023-03-25 15:40] VITALS: BP 123/74; BMI 44.3
== END ==
PROVIDERS: PCP Nurse Practitioner Family; Visit Provider Internal Medicine Pulmonary Disease
DX: J41.1 Mucopurulent chronic bronchitis (principal); I11.0 Hypertensive heart disease with heart failure; I50.32 Chronic diastolic (congestive) heart failure; R06.09 Other forms of dyspnea; G47.33 Obstructive sleep apnea (adult) (pediatric); F17.210 Nicotine dependence, cigarettes, uncomplicated
CPT/HCPCS: 99214

== ENCOUNTER → 2023-08-07 09:58 | Outpatient (BNVA) | payer MEDICARE, MEDICAID, SELFPAY ==
[2023-03-25 15:40] VITALS: BP 123/74; BMI 44.3
== END ==
PROVIDERS: PCP Nurse Practitioner Family; Visit Provider Internal Medicine
DX: E11.8 Type 2 diabetes mellitus with unspecified complications (principal); E78.5 Hyperlipidemia, unspecified; E11.42 Type 2 diabetes mellitus with diabetic polyneuropathy; E11.65 Type 2 diabetes mellitus with hyperglycemia; I10 Essential (primary) hypertension; D35.02 Benign neoplasm of left adrenal gland; E04.1 Nontoxic single thyroid nodule; Z79.4 Long term (current) use of insulin; Z79.84 Long term (current) use of oral hypoglycemic drugs
CPT/HCPCS: 99214

== ENCOUNTER 2023-08-28 12:13 | Outpatient (CLI) | payer MEDICARE, MEDICAID, SELFPAY ==
[2023-03-25 15:40] VITALS: BP 123/74; BMI 44.3
[2023-08-28 12:34] VITALS: PULSE 75; RESP 18; O2SAT 94
[2023-08-28] MEDS: albuterol 2.5 mg/3 mL Neb INHALATION (12:34)
[2023-08-28 12:38] VITALS: PULSE 81
== END 2023-08-28 12:14 | disposition home or self-care (01) ==
LOC: RT 12:13
PROVIDERS: PCP Nurse Practitioner Family; Visit Provider Internal Medicine Pulmonary Disease
DX: R06.00 Dyspnea, unspecified (principal)
CPT/HCPCS: 94060; 94726; 94729; 99214

== ENCOUNTER → 2023-09-11 13:39 | Outpatient (BNVA) | payer MEDICARE, MEDICAID, SELFPAY ==
[2023-03-25 15:40] VITALS: BP 123/74; BMI 44.3
== END ==
PROVIDERS: PCP Nurse Practitioner Family; Visit Provider Internal Medicine Rheumatology
DX: Z79.899 Other long term (current) drug therapy (principal); R29.898 Other symptoms and signs involving the musculoskeletal system; G58.7 Mononeuritis multiplex; R76.8 Other specified abnormal immunological findings in serum
CPT/HCPCS: 36415; 80076; 82085; 82550; 82565; 85025; 85651; 86140; 99214

== ENCOUNTER → 2023-09-12 14:39 | Outpatient (BNVA) | payer MEDICARE, MEDICAID, SELFPAY ==
[2023-03-25 15:40] VITALS: BP 123/74; BMI 44.3
== END ==
PROVIDERS: PCP Nurse Practitioner Family; Visit Provider Physician Assistant
DX: G56.03 Carpal tunnel syndrome, bilateral upper limbs (principal); G56.23 Lesion of ulnar nerve, bilateral upper limbs
CPT/HCPCS: 73110; 99204

== ENCOUNTER → 2023-10-01 14:45 | Outpatient (BNVA) | payer MEDICARE, MEDICAID, SELFPAY ==
[2023-03-25 15:40] VITALS: BP 123/74; BMI 44.3
== END ==
PROVIDERS: PCP Nurse Practitioner Family; Visit Provider Internal Medicine
DX: R06.00 Dyspnea, unspecified (principal); I48.0 Paroxysmal atrial fibrillation; I11.0 Hypertensive heart disease with heart failure; I50.32 Chronic diastolic (congestive) heart failure; E11.42 Type 2 diabetes mellitus with diabetic polyneuropathy; E11.65 Type 2 diabetes mellitus with hyperglycemia; G47.33 Obstructive sleep apnea (adult) (pediatric); F17.218 Nicotine dependence, cigarettes, with other nicotine-induced disorders; Z79.01 Long term (current) use of anticoagulants; Z79.4 Long term (current) use of insulin
CPT/HCPCS: 99214

== ENCOUNTER → 2023-10-04 09:15 | Outpatient (BNVA) | payer MEDICARE, MEDICAID, SELFPAY ==
[2023-03-25 15:40] VITALS: BP 123/74; BMI 44.3
== END ==
PROVIDERS: PCP Nurse Practitioner Family; Visit Provider Nurse Practitioner Family
DX: R10.9 Unspecified abdominal pain (principal)
CPT/HCPCS: 81000

== ENCOUNTER 2023-10-16 07:02 | Day surgery (SDC) | payer MEDICARE, MEDICAID, SELFPAY ==
[2023-03-25 15:40] VITALS: BP 123/74; BMI 44.3
[2023-10-16] VITALS (10 sets, daily range): BP systolic 121–164; BP diastolic 48–101; PULSE 55–73; RESP 13–22; TEMP 36.3–36.5; O2SAT 90–99; BMI 41.0
--- NOTE | 2023-10-16 08:05 | W.PM.OPSFHP ---
Same Day Surgery H&P Indication for Procedure/HPI DATE OF PROCEDURE: October 16, 2023 CHIEF COMPLAINT/INDICATIONFOR SURGICAL PROCEDURE: Right carpal tunnel syndrome, right cubital tunnel syndrome PREOP DIAGNOSIS: Right carpal tunnel syndrome right cubital tunnel syndrome PLANNED PROCEDURE: Operation Date: 10/16/23 08:30 Proposed Procedures p Carpal Tunnel Release(Right) - Alex Dukes DO s Cubital Tunnel Release(Right) - Alex Dukes DO s Ulnar Nerve Transposition/ possible(Right) - Alex Dukes DO Medications/Allergies* Home Medications Medication Instructions Recorded Confirmed Type oxygen-air delivery systems 01/17/22 10/04/23 History acetaminophen 325 mg tablet 325 mg PO QID PRN Pain 11/19/22 10/15/23 History diphenhydramine HCl 25 mg tablet 25 mg PO TID PRN Allergy Symptoms 11/19/22 10/15/23 History (Benadryl Allergy) ibuprofen 200 mg tablet 200 mg PO Q6H PRN Pain 11/19/22 10/15/23 History furosemide 40 mg tablet 40 mg PO DAILY 04/10/23 10/15/23 History CPAP (Standard Cpap) 08/07/23 10/04/23 History cholecalciferol (vitamin D3) 1,250 1,250 mcg PO DIRECTED 10/15/23 10/15/23 History mcg (50,000 unit) capsule gabapentin 600 mg tablet 600 mg PO TID 10/15/23 10/15/23 History metformin 500 mg tablet,extended 500 mg PO BID 10/15/23 10/15/23 History release 24 hr sertraline 100 mg tablet (Zoloft) 100 mg PO DAILY 10/15/23 10/15/23 History budesonide-formoterol HFA 160 See Rx Instructions .Route .COMPLEX 10/16/23 10/15/23 History mcg-4.5 mcg/actuation aerosol inhaler (Symbicort) Allergies/Adverse Reactions Allergy/AdvReac Type Severity Reaction Status Date / Time Sulfa (Sulfonamide Allergy Unknown Unknown Verified 10/15/23 12:49 Antibiotics) quinine [From Quine] Allergy unknown Verified 10/15/23 12:49 ropinirole [From Requip] Allergy Unknown Verified 10/15/23 12:49 Pertinent History/Comorbid Conditions* Medical History (Updated 09/12/23 @ 15:51 by MONSTER Lara) Lower extremity weakness Positive AMI (antinuclear antibody) Disorders of diaphragm Atelectasis of both lungs CHF (congestive heart failure), NYHA class III Drug-induced myopathy Recurrent pneumonia Emphysema lung Encephalopathy acute Acute and chronic respiratory failure with hypercapnia UTI (urinary tract infection) due to Enterococcus Excessive daytime sleepiness Diabetes type 2, controlled Insomnia Gross hematuria UTI (urinary tract infection) Psychiatric care Essential (primary) hypertension Chronic obstructive pulmonary disease with (acute) exacerbation Polyneuropathy, unspecified Callus Porokeratosis PVD (peripheral vascular disease) Shortness of Breath Bilateral leg edema Angina pectoris 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 with no history of malignant neoplasm AF (paroxysmal atrial fibrillation) Hypertension Tobacco abuse disorder Uncontrolled type 2 diabetes mellitus with polyneuropathy Acute DM type 2 causing complication Cannabis dependence, uncomplicated Sleep apnea Nicotine dependence, cigarettes, with other nicotine-induced disorders Bipolar II disorder Post-traumatic stress disorder, chronic Surgical History (Updated 02/02/23 @ 16:07 by Donny Evans MD) H/O chest tube placement History of hysterectomy History of cholecystectomy History of appendectomy History of hernia repair Family History (Updated 01/19/20 @ 13:15 by Jelena Clarke RN) Father, AT AGE 21 Mother, AT AGE 61 Diabetes CAD (coronary artery disease) Mother Gunshot wound Father Cancer Stroke Social History Smoking and tobacco/nicotine status: current every day tobacco/nicotine user cigarettes Packs smoked per day: 1.5 Years cigarettes smoked: 52 [ Other cigarette details: Started at age 10] Second hand smoke exposure: Yes Alcohol intake: current Alcohol intake frequency: holidays/special occasions only Alcohol type: other (mixed drink) Substance/Drug Use: former Date of last use: 2020 Adopted: No Caregiver/support person: No Lives independently: Yes Household members: significant other Housing: Manufactured/Mobile home Marital status: Life Partner Number of children: 0 Number of grandchildren: 0 Highest education level completed: Some College, No Degree service: No Current occupational status: disabled 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 Current occupational exposures/hazards: No Pets and animals: Yes (3 dogs) Pets & animals: dog(s) Leisure activites: fishing and other Leisure activities details: sewing, writing, gardening Sexually active: Yes How many partners: 1 Do you think of yourself as: Lesbian/Gautam/Homosexual Current gender identity: Female Latha/Sabianist: Oriental Orthodox Special latha needs: No Agree to transfusion: Yes Pertinent Exam Findings alert, oriented x 3, operative site marked and procedure specific exam findings Please refer to detailed exam 09/12/2023: Intrinsic atrophy noted to the right hand Hand exam-positive Tinel's and positive Phalen's test. She has no thenar atrophy and no thenar muscle weakness. Full range of motion in fingers and wrist and fingers are warm and well-perfused with normal cap refill under 2 seconds. Radial pulse 2+, positive intrinsic muscle weakness noted. and some intrinsic muscle atrophy noted. Elbow exam-Positive Tinel's test and Positive elbow flexion test. Recommendations Surgery/Procedure today Other Plans: To the OR today for right carpal tunnel release and right cubital tunnel release with possible ulnar nerve transposition. Patient understands the ins and outs of procedure the risk benefits complication alternatives of surgery and through shared decision make elects proceed with surgical intervention. All questions answered. Coding Level of Care Code Acute Code for Chg Fwcate
[2023-10-16 08:24] LABS: Glucose Point of Care 233 mg/dL (70-110)
[2023-10-16] MEDS: sodium chloride 0.9% 1,000 ML 30 ML IV (08:26)
[2023-10-16] MEDS: ketorolac 30 mg/mL INJ IVP (08:26)
[2023-10-16] MEDS: scopolamine 1.5 Patch 1 PATCH TRANSDERMA (08:27)
[2023-10-16] MEDS: acetaminophen 1,000 MG/100 ML PIGGYBACK 400 MG IV (08:31)
--- NOTE | 2023-10-16 08:54 | P.ANESASSM_ITS ---
Pre-Anesthetic Assessment Height/Weight: Height 1.78 m Weight 129.727 kg Temp Pulse Resp BP Pulse Ox O2 Del Method 97.5 F L 61 18 164/101 92 Room Air 10/16/23 07:42 10/16/23 07:42 10/16/23 07:42 10/16/23 07:42 10/16/23 07:42 10/16/23 07:49 Preop Diagnosis: Right carpal tunnel syndrome right cubital tunnel syndrome Operation Date: 10/16/23 08:30 Proposed Procedures p Carpal Tunnel Release(Right) - Alex Maunabo, DO s Cubital Tunnel Release(Right) - Alex Roseline, DO s Ulnar Nerve Transposition/ possible(Right) - Alex Maunabo, DO Was Beta Iker taken within 24 hours: Yes Was Clonidine taken within 24 hours: N/A Last intake: Intake Last Liquid Date 10/15/23 Last Liquid Time 23:00 Last Solid Date 10/15/23 Last Solid Time 23:00 Social Tobacco Exam alert, oriented x 3, clear to auscultation bilaterally and regular rate & rhythm Airway Submandibular: within normal limits Cervical ROM: within normal limits Mallampati: Class II Dentition: chipped and full History/ROS No significant history except as noted and No significant complaints Pulmonary Chronic Obstructive Pulmonary Disease, Cough, Exertional Dyspnea, Othopnea and Shortness of Breath (2LNC at night) CV/HEM Hypertension Chronic Renal Insufficiency Hepatic None reported Metabolic Diabetes Mellitus, Morbid Obesity and Thyroid Disease Musc/skel Lower Back Pain and Osteoarthritis/DJD Neuropsych Neuropathy Anesthetic Plan ASA status: 4 Anesthesia: Anesthesia Evaluation and General Risk of > 500 ml blood loss (7ml/kg in children): No Medications/Allergies Home Medications Medication Instructions Recorded Confirmed Last Taken Type blood sugar diagnostic (Blood #100 ea 06/30/19 10/04/23 Unknown Rx Glucose Test strips) blood-glucose meter (Blood Glucose #1 ea 01/22/20 10/04/23 Unknown Rx Monitoring kit) flash glucose scanning reader #1 ea 08/01/20 10/04/23 Unknown Rx (FreeStyle Jack 2 [place]) flash glucose sensor (FreeStyle #2 ea 08/01/20 10/04/23 Unknown Rx Jack 2 Sensor kit) oxygen-air delivery systems 01/17/22 10/04/23 Unknown History pen needle, diabetic 32 gauge x #100 ea 02/15/22 10/04/23 Unknown Rx /32 (BD Ultra-Fine [place] Pen Needle) nitroglycerin 0.4 mg sublingual 0.4 mg sublingual Q5M PRN chest 05/15/22 10/15/23 Unknown Rx tablet (Nitrostat) pain #25 tabs acetaminophen 325 mg tablet 325 mg PO QID PRN Pain 11/19/22 10/15/23 Unknown History diphenhydramine HCl 25 mg tablet 25 mg PO TID PRN Allergy Symptoms 11/19/22 10/15/23 Unknown History (Benadryl Allergy) ibuprofen 200 mg tablet 200 mg PO Q6H PRN Pain 11/19/22 10/15/23 Unknown History lisinopril 40 mg tablet 40 mg PO DAILY #90 tabs 01/04/23 10/15/23 10/15/23 Rx potassium chloride 20 mEq 20 meq PO DAILY #90 tabs 01/04/23 10/15/23 10/15/23 Rx tablet,extended release rivaroxaban 20 mg tablet (Xarelto) 20 mg PO DAILY #90 tabs 01/04/23 10/15/23 10/15/23 Rx spironolactone 50 mg tablet 50 mg PO DAILY #90 tabs 01/04/23 10/15/23 10/15/23 Rx atorvastatin 40 mg tablet 20 mg (1/2 x 40 mg) PO BEDTIME #30 02/05/23 10/15/23 10/15/23 Rx tabs ipratropium 0.5 mg-albuterol 3 mg 3 ml inhalation QID PRN wheezing 02/14/23 10/15/23 10/15/23 Rx (2.5 mg base)/3 mL nebulization #180 mL soln nebulizer and supplies #1 ea 02/14/23 10/04/23 Unknown Rx afflovest #1 ea 02/26/23 10/04/23 Unknown Rx furosemide 40 mg tablet 40 mg PO DAILY 04/10/23 10/15/23 10/15/23 History back brace #1 ea 04/15/23 10/04/23 Unknown Rx DC Home Health #1 ea 06/18/23 10/04/23 Unknown Rx albuterol sulfate 2.5 mg/3 mL See Rx Instructions .Route 07/19/23 10/15/2310/14/24 Rx (0.083 %) solution for nebulization .COMPLEX #180 mL modafinil 200 mg tablet 200 mg PO QAM #30 tabs 07/22/23 10/15/23 10/15/23 Rx aripiprazole 20 mg tablet (Abilify) 20 mg PO DAILY #30 tabs 07/24/23 10/15/23 10/15/23 Rx bupropion HCl 300 mg 24 hr tablet, 300 mg PO QAM #30 tabs 07/24/23 10/15/23 10/15/23 Rx extended release (Wellbutrin XL) fluticasone propionate 50 2 spray intranasal DAILY #16 grams 07/26/23 10/15/23 Unknown Rx mcg/actuation nasal spray,suspension (Flonase Allergy Relief) umeclidinium 62.5 mcg/actuation 1 inh inhalation DAILY #30 ea 08/01/23 10/15/23 10/16/23 Rx blister powder for inhalation (Incruse Ellipta) CPAP (Standard Cpap) 08/07/23 10/04/23 Unknown History tirzepatide 7.5 mg/0.5 mL 7.5 mg (0.5 mL) SUBCUT Q7D #2 mL 08/07/23 10/15/23 10/01/23 Rx subcutaneous pen injector (Kali) albuterol sulfate 90 mcg/actuation See Rx Instructions .Route 09/10/23 10/15/23 10/16/23 Rx aerosol inhaler .COMPLEX #8.5 grams hydroxychloroquine 200 mg tablet 200 mg PO BID #180 tabs 09/11/23 10/15/23 10/15/23 Rx prednisone 5 mg tablet 5 mg PO DAILY #90 tabs 09/11/23 10/15/23 10/15/23 Rx clonazepam 0.5 mg tablet 0.5 mg PO DAILY PRN severe anxiety 09/13/23 10/15/23 Unknown Rx #15 tabs ipratropium 20 mcg-albuterol 100 See Rx Instructions .Route 09/16/23 10/15/23 10/16/23 Rx mcg/actuation mist for inhalation .COMPLEX #4 ea (Combivent Respimat) zolpidem 5 mg tablet (Ambien) 5 mg PO .HS PRN sleep #30 tabs 09/18/23 10/15/23 10/15/23 Rx cephalexin 500 mg capsule 500 mg PO Q8H 7 days #21 caps 10/04/23 10/15/23 10/15/23 Rx cholecalciferol (vitamin D3) 1,250 1,250 mcg PO DIRECTED 10/15/23 10/15/23 10/15/23 History mcg (50,000 unit) capsule gabapentin 600 mg tablet 600 mg PO TID 10/15/23 10/15/23 10/15/23 History metformin 500 mg tablet,extended 500 mg PO BID 10/15/23 10/15/23 10/15/23 History release 24 hr sertraline 100 mg tablet (Zoloft) 100 mg PO DAILY 10/15/23 10/15/23 10/15/23 History budesonide-formoterol HFA 160 See Rx Instructions .Route .COMPLEX 10/16/23 10/15/23 10/16/23 History mcg-4.5 mcg/actuation aerosol inhaler (Symbicort) Allergies Allergy/AdvReac Type Severity Reaction Status Date / Time Sulfa (Sulfonamide Allergy Unknown Unknown Verified 10/15/23 12:49 Antibiotics) quinine [From Quine] Allergy unknown Verified 10/15/23 12:49 ropinirole [From Requip] Allergy Unknown Verified 10/15/23 12:49 Current Medications Generic Name Dose Route Start Last Admin Trade Name Freq PRN Reason Stop Dose Admin Sodium Chloride 1,000 mls @ 30 mls/hr 10/16/23 07:30 10/16/23 08:26 Sodium Chloride 0.9% IV 10/17/23 07:29 30 mls/hr .Q24H MAXIMILIANO Administration PFSH Anesthesia Medical History Lower extremity weakness Positive AMI (antinuclear antibody) Disorders of diaphragm Atelectasis of both lungs CHF (congestive heart failure), NYHA class III Drug-induced myopathy Recurrent pneumonia Emphysema lung Encephalopathy acute Acute and chronic respiratory failure with hypercapnia UTI (urinary tract infection) due to Enterococcus Excessive daytime sleepiness Diabetes type 2, controlled Insomnia Gross hematuria UTI (urinary tract infection) Psychiatric care Essential (primary) hypertension Chronic obstructive pulmonary disease with (acute) exacerbation Polyneuropathy, unspecified Callus Porokeratosis PVD (peripheral vascular disease) Shortness of Breath Bilateral leg edema Angina pectoris 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 with no history of malignant neoplasm AF (paroxysmal atrial fibrillation) Hypertension Tobacco abuse disorder Uncontrolled type 2 diabetes mellitus with polyneuropathy Acute DM type 2 causing complication Cannabis dependence, uncomplicated Sleep apnea Nicotine dependence, cigarettes, with other nicotine-induced disorders Bipolar II disorder Post-traumatic stress disorder, chronic Surgical History H/O chest tube placement History of hysterectomy History of cholecystectomy History of appendectomy History of hernia repair Family History Father , AT AGE 21 Gunshot wound Mother , AT AGE 61 CAD (coronary artery disease) Other Cancer Diabetes Stroke Social History Smoking and tobacco/nicotine status: current every day tobacco/nicotine user cigarettes Packs smoked per day: 1.5 Years cigarettes smoked: 52 [ Other cigarette details: Started at age 10] Second hand smoke exposure: Yes Alcohol intake: current Alcohol intake frequency: holidays/special occasions only Alcohol type: other (mixed drink) Substance/Drug Use: former Date of last use: 2020 Adopted: No Caregiver/support person: No Lives independently: Yes Household members: significant other Housing: Manufactured/Mobile home Marital status: Life Partner Number of children: 0 Number of grandchildren: 0 Highest education level completed: Some College, No Degree service: No Current occupational status: disabled 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 Current occupational exposures/hazards: No Pets and animals: Yes (3 dogs) Pets & animals: dog(s) Leisure activites: fishing and other Leisure activities details: sewing, writing, gardening Sexually active: Yes How many partners: 1 Do you think of yourself as: Lesbian/Gautam/Homosexual Current gender identity: Female Latha/Yazidi: Uatsdin Special latha needs: No Agree to transfusion: Yes Female Reproductive History Para: 0 Spontaneous abortions: No Data Anesthesia 10/16/23 08:22 Cardiac Studies: 2 Echocardiogram 12/10/22 Echocardiogram Ultrasound 03/31/20 Sestamibi Stress Test (Cardiology) 10/20 Holter Monitor 07/23/19
[2023-10-16 09:12] LABS: Anion Gap 14.2 (5-19); Blood Urea Nitrogen 25 mg/dL (8-23); Calcium 9.4 mg/dL (8.5-10.5); Carbon Dioxide 27 mmol/L (22-29); Chloride 101 mmol/L (98-107); Creatinine Clr Calc Pharmacy 93.9236; Glomerular Filtration Rate 63.2 mL/min (90-130); Glucose 249 mg/dL (65-115); Osmolality Calculated 299 mOsm/kg (285-295); Potassium 4.2 mmol/L (3.5-5.1); Sodium 138 mmol/L (136-145)
[2023-10-16] MEDS: ceFAZolin 2,000 MG in sodium chloride 0.9% (plus) 50 ML 100 MG IV (09:19)
[2023-10-16] MEDS: ROPivacaine 0.5% SDV 30 mL 150 MG INJECTION (10:08)
[2023-10-16] MEDS: lidocaine-epi 1% PF 1:200,000 30 mL SDV INJECTION (10:08)
--- NOTE | 2023-10-16 10:35 | P.OP_ITS ---
Operative Report Date of procedure: October 31, 2023 Surgeon: Alex Dukes DO Garbage Truck Dispatcher: Alan Dukes PA-C: PA was necessary for assistance in this case with hand positioning to execute the procedure, retraction and protection of neurovascular structures as well as to assist with wound closure and dressing application. Procedure: Preoperative diagnosis: Right carpal tunnel syndrome, right cubital tunnel syndrome Postop Diagnosis: Same Procedure done: Right carpal tunnel release Right?cubital tunnel tunnel release (ulnar nerve decompression at elbow) Surgeon: Alex Dukes DO Estimated blood loss: 5 mL Tourniquet? 20 minutes IV fluids: 500 mL Complications: None Findings: See operative report narrative Condition: stable Disposition: same day Brief History: Patient's been seen and worked up in the outpatient setting and findings consistent with preoperative diagnosis.? Patient has right carpal tunnel syndrome as well as right?cubital tunnel syndrome which has been worked up in the outpatient setting has physical exam findings consistent with this as well as confirmatory nerve conduction/EMG nerve conduction study consistent with di agnosis.? Patient's failed conservative treatment.? As result through shared decision making agreed to proceed with? right carpal tunnel and right?cubital tunnel release we talked about treatment options as far as nonoperative and operative intervention.? Understands risk benefits complication alternatives surgical nonsurgical treatment options.? Understanding risks she agrees to proceed with surgical intervention. Understanding these risks she agrees to proceed with surgery.? Consent obtained in office. Procedure: Patient seen evaluate in the preoperative holding area.? Consent was reviewed and signed with patient.? Correct extremity marked.? Patient seen evaluated by anesthesia department once cleared for surgery was then taken back to the operative suite placed in supine position all bony prominences well-padded patient properly secured to bed.? right upper extremity placed onto armboard.? Nonsterile tourniquet applied right upper arm.? Patient then underwent anesthesia per the anesthesia department.? Patient's right upper extremity was then prepped and draped in standard orthopedic fashion.? Final timeout performed.? Patient received appropriate preoperative antibiotics. Esmarch was used exsanguinate the right upper extremity.? Tourniquet was insufflated to 250 mmHg. I started with the carpal tunnel release first.? I made a standard open carpal tunnel release starting with the distal most extent in the palm at the Patten's cardinal line and the incision line was made in line with the fourth ray and ended just distal to the wrist crease.? Sharp scalpel incision was made through skin and subcutaneous tissue I then utilizing self retainer then began to dissect with dissection scissors split longitudinally the palmar fascia.? Next I then utilizing my catalog library assistant Tr retractors subsequently utilizing scalpel feathered through the palmaris brevis as well as through the transverse carpal ligament distally.? Once I encountered the floor of the transverse carpal ligament and entered into the carpal tunnel I then switched to dissection scissors.? Carefully released the distal extent of the transverse carpal ligament to the palmar fat.? Care was to protect the recurrent branch and not injured this during this part of the case.? Next I then placed a [place] underneath the transverse carpal ligament proximally to protect the nerve in the carpal tunnel contents.? And then I subsequently under loupe magnification utilize my dissection scissors to release the transverse carpal ligament into the antebrachial fascia under direct visualization with care to keep my scissors with a curved ulnarly away from the palmar cutaneous branch.? The transverse carpal was then completely decompressed proximally and a [place] was then placed both distally and proximally throughout the carpal tunnel and had complete decompression of the nerve.? The nerve did appear to have hourglass shape as it went through the carpal tunnel.? With significant irritation noted around the nerve.? No masses were noted within the contents of the carpal tunnel.? This completed the carpal tunnel release and then I subsequently irrigated the wound bed and placed a wet Ray-Enriqueta into the incision for later closure. Next marked out the landmarks of the right elbow of the medial epicondyle and olecranon and made a curvilinear incision following the course of the ulnar nerve at the medial aspect of the elbow.? Sharp scalpel incision was made through skin and subcutaneous tissue.? Next I switched to Littler dissection scissors and spread in plane of the medial antebrachial cutaneous nerve branching which was protected throughout this part of the dissection.? Then I directly came down over the fascia and identified the 2 heads of the FCU fascia and split this right in the middle and subsequently identified my ulnar nerve distally.? This was then completely released distally under direct visualization and loupe magnification.? Once the nerve was then identified I then subsequently tracked this proximally and released this through Rivera's ligament as well as complete decompression of the nerve proximally all the way past the intermuscular septum.? The nerve was completely released and decompressed both proximally and distally.? Ulnar nerve neurolysis performed and completed both proximally and distally with dissection scissors.? I then took the elbow through range of motion and there was no instability or subluxating of the ulnar nerve.? This completed?cubital tunnel release.? ?Next the wound bed was thoroughly irrigated.? Tourniquet was deflated.? Hemostasis was satisfactory at the?cubital tunnel release surgery site. I then inspected the carpal tunnel incision and this was found to have satisfactory hemostasis and all this was maintained through bipolar electrocautery.? At this point time I sequentially closed?cubital tunnel site with 3-0 Vicryl suture in a running horizontal mattress nylon stitch.? ? The carpal tunnel release surgery was then closed in standard interrupted mattress fashion.? Dressing was Xeroform 4 x 4's ABD Curlex soft roll and an Sajan wrap has a bulky soft dressing. Patient was then awakened from anesthesia and taken to PACU in stable condition. Disposition: Patient taken to PACU in stable condition recovering well.? Patient will receive appropriate discharge instructions as well as pain medication postoperatively.? We will follow-up with me in the office in 2 weeks.? Patient understands agrees with current plan.? All questions answered.? He understands if any questions or concerns and contact the office for follow-up appointment.
--- NOTE | 2023-10-16 10:37 | W.PM.BPON ---
Date of Procedure: [October 16, 2023] Surgeon: [Dr. Dukes DO] Addressograph Operator(s): [Alan Dukes PA-C] Procedure(s) performed: [Right carpal tunnel release right cubital tunnel release] Findings of the procedure(s): [Right carpal tunnel syndrome and right cubital tunnel syndrome] Estimated blood loss: [5 mL] Specimen(s) removed: [N/A] Post-operative diagnosis: [Right carpal tunnel syndrome and right cubital tunnel syndrome]
--- NOTE | 2023-10-16 10:38 | PM.PACU ---
PACU note Narrative: Patient is a 63-year-old female just underwent a right carpal tunnel right cubital tunnel release. Patient transferred to PACU in stable condition. Pain is well controlled. Dressing on hand is dry and in place. Patient's fingers are warm and well-perfused. Exam is limited due to patient still being under anesthetic. Exam: unarousable Disposition: discharged
[2023-10-16 10:52] LABS: Glucose Point of Care 239 mg/dL (70-110)
--- NOTE | 2023-10-16 11:12 | SUR.PHASEII ---
good ROM,sensation and cap refill of fingers of right hand.
--- NOTE | 2023-10-16 11:40 | W.PM.BPON ---
Date of Procedure: [October 16, 2023] Surgeon: [Dr. Roseline DO] Lead Based Paint Technician(s): [Alan Dukes PA-C] Procedure(s) performed: [Right thumb trigger release right ring finger trigger release Right ring finger retinacular cyst excision] Findings of the procedure(s): Right thumb trigger finger and right ring trigger finger. Patient also had a retinaculum cyst on right ring finger Estimated blood loss: [5 ml] Specimen(s) removed: [Right ring finger retinaculum cyst] Post-operative diagnosis: [Right thumb trigger finger and right ring trigger finger and right ring finger retinaculum cyst.]
--- NOTE | 2023-10-16 11:55 | ANE.PACU2 ---
Inpatient post-anesthesia follow up: Airway intact: Yes Vital signs: Temperature 97.7 F Pulse Rate 65 Respiratory Rate 18 Blood Pressure 133/69 Pulse Oximetry 93 Oxygen Delivery Me thod Room Air Oxygen Flow Rate 8 Fraction of Inspir ed Oxygen Hydration adequate: Yes Nausea and vomiting: No Pain level: 1 Mental status: Baseline
== END 2023-10-16 11:55 | disposition home or self-care (01) ==
PROVIDERS: Anesthesiology; PCP Nurse Practitioner Family; Visit Provider Student in an Organized Health Care Education/Training Program
PROC: (CPT 64721; principal; 2023-10-16 08:30)
PROC: (CPT 64718; 2023-10-16 08:30)
DX: G56.01 Carpal tunnel syndrome, right upper limb (principal); G56.21 Lesion of ulnar nerve, right upper limb; Z79.84 Long term (current) use of oral hypoglycemic drugs; I11.0 Hypertensive heart disease with heart failure; I50.9 Heart failure, unspecified; I48.0 Paroxysmal atrial fibrillation; J44.9 Chronic obstructive pulmonary disease, unspecified; E11.42 Type 2 diabetes mellitus with diabetic polyneuropathy; F17.210 Nicotine dependence, cigarettes, uncomplicated; Z99.81 Dependence on supplemental oxygen
CPT/HCPCS: 64718; 64721; 36415; 36416; 80048; 82962; J0131; J0690; J1885; J2704; J2795; J3010; J7030

== ENCOUNTER → 2023-10-31 10:15 | Outpatient (BNVA) | payer MEDICARE, MEDICAID, SELFPAY ==
[2023-03-25 15:40] VITALS: BP 123/74; BMI 44.3
== END ==
PROVIDERS: PCP Nurse Practitioner Family; Visit Provider Physician Assistant
DX: Z98.890 Other specified postprocedural states (principal)
CPT/HCPCS: 99024

== ENCOUNTER 2023-12-04 09:56 | Inpatient (IN) | payer MEDICARE, MEDICAID, SELFPAY ==
[2023-03-25 15:40] VITALS: BP 123/74; BMI 44.3
[2023-12-04] VITALS (17 sets, daily range): BP systolic 113–211; BP diastolic 50–108; PULSE 54–116; RESP 15–22; TEMP 36.4–36.9; O2SAT 94–97; BMI 41.5; BMI 41.3
--- NOTE | 2023-12-04 10:00 | XR_ITS ---
WS: [id number] PORTABLE CHEST HISTORY: Chest pain COMPARISON: 02/18/2023 Lungs are hyperinflated. Coarse areas of interstitial thickening bilaterally have progressed since th e prior study. Increasing areas of consolidation at the lung bases. No pleural effusion. Small RIGHT apical pneumothorax. Cardiac size: Normal. Mediastinum/Aorta: Prominent hilar regions from pulmonary hypertension. No osseous abnormality seen. XR/XR chest 1V portable [id number] IMPRESSION: 1. Small RIGHT apical pneumothorax. Estimated 10 to 15%. 2. Severe emphysema. 3. Bibasilar areas of increasing consolidation probably atelectasis. Pneumonia is not excluded. Notified Rosalie Ly MD at 12/04/2023 11:19 AM.
--- NOTE | 2023-12-04 10:02 | ECG_ITS ---
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 Measurements Intervals [place] Rate: 51 P: -68 TN: 135 QRS: 34 QRSD: 86 T: 75 QT: 429 QTc: 399 Interpretive Statements SINUS BRADYCARDIA WITH SINUS ARRHYTHMIA Compared to ECG 02/04/2023 08:02:35 Atrial fibrillation no longer present Aberrant conduction of supraventricular beat(s) no longer present Ventricular premature complex(es) no longer present T-wave abnormality no longer present Electronically Signed On 12-04-2023 15:57:22 CDT by Mo Adamson M.D. [id number]
[2023-12-04 10:14] LABS: ABG PCO2 46.4 mmHg (35-45); ABG PH Result 7.38 (7.35-7.45); Alveolar-Arterial Oxygen Gradi 17.2 mmHg (5-10); Arterial Blood Gas Hematocrit 43.8 % (37-47); Base Excess ABG 1.5 mmol/L (-2.0-2.0); Blood Gas Allen Test Pos; Blood Gas Operator Identificat CAK; Blood Gas Sample Site Radial, left; Blood Gas Sample Type Arterial; Carboxyhemoglobin 4.5 %THgb (0.4-20.1); HCO3 ABG 27.3 mmol/L (22-26); HGB O2 Sat 89.1 % (95-100); Ionized Calcium Level - ABG 1.3 mmol/L (1.1-1.4); Methemoglobin 1.1 % (0.4-1.5); Oxygen Device NC; Oxygen Saturation ABG 94.3; PO2 ABG 68.7 mmHg (80.0-100.0); PO2 FiO2 Ratio Arterial Blood 190; Potassium Level - ABG 4.3 mmol/L (3.5-5.0); Total Hemoglobin 14.3 g/dL (12-16)
[2023-12-04 10:52] LABS: Basophils % 0.3 %; Eosinophils # 0.1 10^3/uL (0.0-0.8); Eosinophils % 1.1 %; Lymphocytes # 1.3 10^3/uL (0.8-4.8); Lymphocytes % 11.2 %; Mean Corpuscular HGB Conc 32.7 g/dL (30-55); Mean Corpuscular Hemoglobin 28.3 pg (27-33); Mean Corpuscular Volume 86.5 fl (85-98); Mean Platelet Volume 9.5 fL (7.4-10.4); Monocytes # 0.8 10^3/uL (0.2-0.9); Monocytes % 6.8 %; Neutrophils # 9.06 10^3/uL (1.8-7.7); Neutrophils % 80.2 %; Nucleated Red Blood Cells % 0 %; Platelet Count 241 10^3/cmm (157-399); Red Blood Count 4.74 10^6/uL (3.85-5.65); Red Cell Distribution Width 13.2 % (12.1-15.1)
[2023-12-04 11:11] LABS: Bilirubin Urine Neg (Negative); Blood Urine Neg (Negative); Glucose Urine UA 4+ (Normal); Ketones Urine Negative (Negative); Leukocyte Esterase Urine Negative (Negative); Nitrate Urine Negative (Negative); Protein Urine 1+ (Negative); Specific Gravity, Urine 1.005 (1.005-1.030); Urine Appearance Clear (CLEAR); Urine Color Yellow (Yellow); Urobilinogen Urine Norm (Negative); pH Urine 6 (5-7)
[2023-12-04 11:12] LABS: Lactic Sepsis W/Reflex 1.4 mmol/L (0.5-2.2)
[2023-12-04 11:13] LABS: Troponin(5th) Baseline 33 ng/L (0-10)
[2023-12-04 11:14] LABS: Add Urine Culture? No; Bacteria Urine TRACE /hpf; RBC Urine RARE /hpf (0-2); Squamous Epithelial Cell Urine 0-4 /hpf (0-5)
[2023-12-04 11:20] LABS: NT Pro B Type Natriuretic Pept 408 pg/mL (0-125); Procalcitonin 0.04 ng/mL (0-0.5); Thyroid Stimulating Hormone 1.77 uIU/mL (0.27-4.20)
--- NOTE | 2023-12-04 11:28 | CT_ITS ---
WS: [id number] CT chest wo con [id number] HISTORY: abnormal chest xray TECHNIQUE: Axial imaging performed through the thorax. Coronal and sagittal reformats are submitted. All CT scans at [facility] use at least one of these dose optimization techniques: automated exposure control; mA and/or kV adjustment per patient size (includes targeted exams where dose is mat ched to clinical indication); or iterative reconstruction. CONTRAST: None DLP: 615.97 mGy.cm COMPARISON: 02/02/2023 Lungs and central airway: Mild volume loss in the RIGHT thorax due to small to moderate RIGHT pneumot horax and a small layering pleural effusion. There is an area of consolidation anteriorly in the RIGH T middle lobe which is probably atelectasis. This can be further evaluated on follow-up imaging studi es. Pleura: See above. Heart and pericardium: Mild cardiomegaly. Mediastinum and harrison: No adenopathy identified. Vessels: Mildly dilated pulmonary artery. Mild atherosclerosis aorta. Chest wall and lower neck: No soft tissue masses. Upper abdomen: LEFT adrenal adenoma 1.5 x 2.6 cm. Mild hepatic steatosis. Osseous structures: No destructive process. CT/CT chest wo con [id number] IMPRESSION: 1. Small to moderate RIGHT pneumothorax, estimated at 20%. No tension pneumoth orax. 2. Small RIGHT pleural effusion. 3. Consolidation in the anterior RIGHT middle lobe is probably an area of atel ectasis. This can be further evaluated after treatment for the pneumothorax. 4. Stable LEFT adrenal adenoma. 5. Mild pulmonary hypertension.
[2023-12-04 11:31] LABS: Alanine Aminotransferase 11 U/L (0-33); Albumin Level 3.9 g/dL (3.5-5.2); Alkaline Phosphatase 89 U/L (35-105); Anion Gap 16.6 (5-19); Aspartate Amino Transferase 7 U/L (0-32); Blood Urea Nitrogen 21 mg/dL (8-23); Calcium 9.2 mg/dL (8.5-10.5); Carbon Dioxide 23 mmol/L (22-29); Chloride 101 mmol/L (98-107); Creatinine Clr Calc Pharmacy 94.6569; Globulin 2.5 g/dL (1.3-4.6); Glomerular Filtration Rate 63.2 mL/min (90-130); Glucose 356 mg/dL (65-115); Magnesium 1.6 mg/dL (1.7-2.3); Osmolality Calculated 299 mOsm/kg (285-295); Potassium 4.6 mmol/L (3.5-5.1); Sodium 136 mmol/L (136-145); Total Bilirubin 0.3 mg/dL (0.15-1.2); Total Protein 6.4 g/dL (6.6-8.7)
[2023-12-04] MEDS: albuterol 2.5 mg/3 mL Neb INHALATION (11:39)
[2023-12-04] MEDS: ipratropium-albuterol 3 mL Neb INHALATION ×2 (11:39→19:51)
[2023-12-04] MEDS: levofloxacin-dextrose 5 % 750 MG/150 ML PREMIX 100 MG IV (11:42)
[2023-12-04] MEDS: methylPREDNISolone sod succ 125 mg/2 mL INJ IVP (11:42)
[2023-12-04 11:49] LABS: INR 1.08 (0.8-1.2)
[2023-12-04 11:50] LABS: Partial Thromboplastin Time 35.1 SECONDS (23.9-36.7)
--- NOTE | 2023-12-04 12:02 | ECG_ITS ---
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 Measurements Intervals [place] Rate: 61 P: -12 DE: 175 QRS: 37 QRSD: 89 T: 67 QT: 414 QTc: 420 Interpretive Statements SINUS RHYTHM WITH MARKED SINUS ARRHYTHMIA POSSIBLE ANTERIOR MYOCARDIAL INFARCTION , OF INDETERMINATE AGE [30 ms Q WAVE IN V3/V4, OR R < 0.2 mV IN V4] Compared to ECG 12/04/2023 10:44:53 Myocardial infarct finding now present Electronically Signed On 12-04-2023 15:58:21 CDT by Mo Adamson M.D. [id number]
--- NOTE | 2023-12-04 12:20 | ED_ITS ---
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 She has had a worsening cough over the last couple of days. She is become much more short of breath. She has had increased oxygen requirements. No nausea or vomiting. No abdominal pain. No altered mental status. No focal motor deficits. No known fevers. Review of Systems 2 Narrative: Constitutional symptoms: Negative except as documented in HPI. Skin symptoms: Negative except as documented in HPI. Eye symptoms: Negative except as documented in HPI. ENMT symptoms: Negative except as documented in HPI. Respiratory symptoms: Negative except as documented in HPI. Cardiovascular symptoms: Negative except as documented in HPI. Gastrointestinal symptoms: Negative except as documented in HPI. Genitourinary symptoms: Negative except as documented in HPI. Musculoskeletal symptoms: Negative except as documented in HPI. Neurologic symptoms: Negative except as documented in HPI. Psychiatric symptoms: Negative except as documented in HPI. Endocrine symptoms: Negative except as documented in HPI. PFSH ED 2 PFSH: Medical History Lower extremity weakness Positive AMI (antinuclear antibody) Disorders of diaphragm Atelectasis of both lungs CHF (congestive heart failure), NYHA class III Drug-induced myopathy Recurrent pneumonia Emphysema lung Encephalopathy acute Acute and chronic respiratory failure with hypercapnia UTI (urinary tract infection) due to Enterococcus Excessive daytime sleepiness Diabetes type 2, controlled Insomnia Gross hematuria UTI (urinary tract infection) Psychiatric care Essential (primary) hypertension Chronic obstructive pulmonary disease with (acute) exacerbation Polyneuropathy, unspecified Callus Porokeratosis PVD (peripheral vascular disease) Shortness of Breath Bilateral leg edema Angina pectoris 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 with no history of malignant neoplasm AF (paroxysmal atrial fibrillation) Hypertension Tobacco abuse disorder Uncontrolled type 2 diabetes mellitus with polyneuropathy Acute DM type 2 causing complication Cannabis dependence, uncomplicated Sleep apnea Nicotine dependence, cigarettes, with other nicotine-induced disorders Bipolar II disorder Post-traumatic stress disorder, chronic Surgical History H/O chest tube placement History of hysterectomy History of cholecystectomy History of appendectomy History of hernia repair Family History Father , AT AGE 21 Gunshot wound Mother , AT AGE 61 CAD (coronary artery disease) Other Cancer Diabetes Stroke Social History Smoking and tobacco/nicotine status: current every day tobacco/nicotine user cigarettes Packs smoked per day: 1.5 Years cigarettes smoked: 52 [ Other cigarette details: Started at age 10] Second hand smoke exposure: Yes Alcohol intake: current Alcohol intake frequency: holidays/special occasions only Alcohol type: other (mixed drink) Substance/Drug Use: former Date of last use: 2020 Adopted: No Caregiver/support person: No Lives independently: Yes Household members: significant other Housing: Manufactured/Mobile home Marital status: Life Partner Number of children: 0 Number of grandchildren: 0 Highest education level completed: Some College, No Degree service: No Current occupational status: disabled 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 Skin: Warm, dry. Head: Normocephalic, atraumatic. Neck: Supple, trachea midline. Eye: Extraocular movements are intact. Ears, nose, mouth and throat: Oral mucosa moist. Cardiovascular: Tachycardic, irregular, Normal peripheral perfusion. Respiratory: coarse, scattered wheeze, mild increased wob. tachypnea, breath sounds are equal, Symmetrical chest wall expansion. Gastrointestinal: Soft, Nontender, Non distended, Normal bowel sounds. Musculoskeletal: Normal ROM, no deformity. Neurological: Alert and oriented to person, place, time, and situation, No focal neurological deficit observed. Psychiatric: Cooperative, appropriate mood & affect. Course 2 Vital Signs: Vital signs: Vital Signs Temperature 97.7 F 12/04/23 10:04 Pulse Rate 65 12/04/23 11:37 Respiratory Rate 16 12/04/23 11:37 Blood Pressure 113/80 12/04/23 11:00 Pulse Oximetry 95 12/04/23 11:37 Oxygen Delivery Me thod Nasal Cannula 12/04/23 11:37 Oxygen Flow Rate 4 12/04/23 11:37 MDM - SOB/Dyspnea Medical Decision Making Differential diagnosis for patient with shortness of breath includes but is not limited to and based on the above HPI, review of systems and physical exam: Pneumonia. Bronchitis. Asthma or COPD with acute exacerbation. Acute coronary syndrome / PA. Pulmonary embolism. Anxiety. Congestive heart failure. Viral infections including influenza and Covid-19. Atrial fibrillation. Anxiety. Pleural effusion. Pneumothorax. Workup: Lab work, chest X-ray and EKG ordered to evaluate, rule in and rule out above pathologies Chest x-ray: Small right apical pneumothorax estimated to be about 10%. Severe emphysema. Bibasilar areas of increasing consolidation probably atelectasis, although pneumonia is not excluded. A chest CT was ordered to better evaluate this. AB.48/48/68 on 4 L nasal cannula with an O2 sat of 94%. Hypoxic but not overtly hypercapnic EKG: Time 10:44 AM. Rate 51. Junctional bradycardia, No ST-T changes, no ectopy, normal CO & QRS intervals, This was reviewed and interpreted by myself the ER physician at 10:48 AM Repeat EKG: Time 11:42 AM. Rate 61. Normal sinus rhythm, No ST-T changes, no ectopy, normal CO & QRS intervals, This was reviewed and interpreted by myself the ER physician at 11:46 AM Lab Review: Laboratory results were reviewed and interpreted by myself the emergency room physician. Some mild leukocytosis with a white count of 11,000. Slight left shift at 80%. BUN and creatinine are 21 and 0.9. Her sugar is high at 356. LFTs are normal. Lactic acid is normal at 1.4. Urinalysis is negative for infection. CT of the chest without contrast: Small right pneumothorax estimated to be about 20%. No tension pneumothorax. Small right pleural effusion. Consolidation in the anterior right middle lobe that is probably atelectasis. This was reviewed and interpreted by myself the emergency room physician. I also reviewed the radiology report. Consultation: I spoke with the radiologist on-call about the findings of the chest x-ray. She reports a small right apical pneumothorax. Consultation: I spoke with Dr. Fields who is on-call for general surgery and will follow the patient in the hospital. Recommends holding the patient's Xarelto for now. Consultation: I spoke with Dr. Cuevas, hospitalist on-call about the patient and he agrees with admission. I reviewed the patient's medical record. Reexamination: Patient has remained stable. Wheezes improved somewhat. She does not have any increased work of breathing. No altered mental status. No focal motor deficits. Assessment and plan: COPD with acute exacerbation Pneumothorax Hyperglycemia Atrial fibrillation Chronic anticoagulation on Xarelto Tobacco dependence Acute on chronic hypoxemic respiratory failure -No indication for chest tube at this time. Patient does states she has had a collapsed lung in the remote past. ? IV Levaquin, IV Solu-Medrol and updrafts in the emergency room ? Hold Xarelto ? 10 units IV insulin and 1 L normal saline bolus. -Patient was initially A-fib with RVR but has converted to sinus rhythm. ?Patient has somewhat increased requirement of her oxygen. She is requiring 4 L today. Normally 2 L or just as needed she says. -I discussed the patient with the hospitalist on-call who is admitting the patient. - Discussed findings and plan with patient. Answered any questions. - All laboratory values were reviewed and interpreted personally by myself, the ER physician - All imaging was reviewed and interpreted personally by myself, the ER physician. - Evaluation and treatment of this problem were appropriate in the emergency setting I spent 3-4 minutes talking to the patient about tobacco cessation. We discussed the risk associated with tobacco use and the importance of stopping tobacco use. The patient seems receptive to the information. -I spent a total of >35 minutes of critical care time managing the patient, independent of any other practitioner. -The time involved in the performance of separately reportable procedures was not counted towards critical care time. Lab Data 12/04/23 10:31 12/04/23 10:31 Labs/Radiology: Radiology Impressions Chest X-Ray 12/04/23 10:00 IMPRESSION: 1. Small RIGHT apical pneumothorax. Estimated 10 to 15%. 2. Severe emphysema. 3. Bibasilar areas of increasing consolidation probably atelectasis. Pneumonia is not excluded. Notified Rosalie Ly MD at 12/04/2023 11:[address] 12/04/23 11:28 IMPRESSION: 1. Small to moderate RIGHT pneumothorax, estimated at 20%. No tension pneumothorax. 2. Small RIGHT pleural effusion. 3. Consolidation in the anterior RIGHT middle lobe is probably an area of atelectasis. This can be further evaluated after treatment for the pneumothorax. 4. Stable LEFT adrenal adenoma. 5. Mild pulmonary hypertension. Laboratory Results WBC 11.30 10^3/uL (3.29-11.43) 12/04/23 10:31 RBC 4.74 10^6/uL (3.85-5.65) 12/04/23 10:31 Hgb 13.40 g/dL (11.27-16.99) 12/04/23 10:31 Hct 41.0 % (36-47) 12/04/23 10:31 MCV 86.5 fl (85-98) 12/04/23 10:31 MCH 28.3 pg (27-33) 12/04/23 10:31 MCHC 32.7 g/dL (30-55) 12/04/23 10:31 RDW 13.2 % (12.1-15.1) 12/04/23 10:31 Plt Count 241 10^3/cmm (157-399) 12/04/23 10:31 MPV 9.5 fL (7.4-10.4) 12/04/23 10:31 Neut % (Auto) 80.2 % 12/04/23 10:31 Lymph % (Auto) 11.2 % 12/04/23 10:31 [place] % (Auto) 6.8 % 12/04/23 10:31 Eos % (Auto) 1.1 % 12/04/23 10:31 Baso % (Auto) 0.3 % 12/04/23 10:31 Neut # (Auto) 9.06 10^3/uL (1.8-7.7) H 12/04/23 10:31 Lymph # (Auto) 1.3 10^3/uL (0.8-4.8) 12/04/23 10:31 [place] # (Auto) 0.8 10^3/uL (0.2-0.9) 12/04/23 10:31 Eos # (Auto) 0.1 10^3/uL (0.0-0.8) 12/04/23 10:31 Baso # (Auto) 0.0 10^3/uL (0.0-0.1) 12/04/23 10:31 Nucleated RBC % (auto) 0 % 12/04/23 10:31 Nucleated RBCs # 0.0 /100WBC 12/04/23 10:31 PT 14.40 SECONDS (12.1-14.9) 12/04/23 10:31 INR 1.08 (0.8-1.2) 12/04/23 10:31 APTT 35.1 SECONDS (23.9-36.7) 12/04/23 10:31 Specimen Type Arterial 12/04/23 10:02 Sample Site Radial, left 12/04/23 10:02 ABG pH 7.38 (7.35-7.45) 12/04/23 10:02 ABG pCO2 46.4 mmHg (35-45) H 12/04/23 10:02 ABG pO2 68.7 mmHg (80.0-100.0) L 12/04/23 10:02 ABG PO2/FiO2 Ratio 190 12/04/23 10:02 ABG HCO3 27.3 mmol/L (22-26) H 12/04/23 10:02 ABG O2 Saturation 94.3 12/04/23 10:02 ABG Base Excess 1.5 mmol/L (-2.0-2.0) 12/04/23 10:02 Vish Test Pos 12/04/23 10:02 A-a O2 Gradient 17.2 mmHg (5-10) H 12/04/23 10:02 Hematocrit 43.8 % (37-47) 12/04/23 10:02 Hgb O2 Saturation 89.1 % (95-100) L 12/04/23 10:02 Carboxyhemoglobin 4.5 %THgb (0.4-20.1) 12/04/23 10:02 Methemoglobin 1.1 % (0.4-1.5) 12/04/23 10:02 Total Hemoglobin 14.3 g/dL (12-16) 12/04/23 10:02 Sodium 137.0 mmol/L (131-143) 12/04/23 10:02 Potassium 4.3 mmol/L (3.5-5.0) 12/04/23 10:02 Glucose 350.0 mg/dL (70-115) H 12/04/23 10:02 Ionized Calcium 1.3 mmol/L (1.1-1.4) 12/04/23 10:02 O2 Delivery Device Nc 12/04/23 10:02 O2 Liters/Min 4.0 % 12/04/23 10:02 FiO2 36.0 % 12/04/23 10:02 Art Gallery Director ID Cak 12/04/23 10:02 Sodium 136 mmol/L (136-145) 12/04/23 10:31 Potassium 4.6 mmol/L (3.5-5.1) 12/04/23 10:31 Chloride 101 mmol/L (98-107) 12/04/23 10:31 Carbon Dioxide 23 mmol/L (22-29) 12/04/23 10:31 Anion Gap 16.6 (5-19) 12/04/23 10:31 BUN 21 mg/dL (8-23) 12/04/23 10:31 Creatinine 0.9 mg/dL (0.5-0.9) 12/04/23 10:31 GFR Calculation 63.2 mL/min (90-130) L 12/04/23 10:31 Glucose 356 mg/dL (65-115) H 12/04/23 10:31 Calculated Osmolality 299 mOsm/kg (285-295) H 12/04/23 10:31 Lactic Acid 1.4 mmol/L (0.5-2.2) 12/04/23 10:31 Calcium 9.2 mg/dL (8.5-10.5) 12/04/23 10:31 Magnesium 1.6 mg/dL (1.7-2.3) L 12/04/23 10:31 Total Bilirubin 0.3 mg/dL (0.15-1.2) 12/04/23 10:31 AST 7 U/L (0-32) 12/04/23 10:31 ALT 11 U/L (0-33) 12/04/23 10:31 Alkaline Phosphatase 89 U/L (35-105) 12/04/23 10:31 Troponin T Baseline 33 ng/L (0-10) H 12/04/23 10:31 Troponin T 120 Minute 33.92 ng/L (0-10) H 12/04/23 12:35 Delta Troponin T 0.92 ABS# (0-10) 12/04/23 12:35 C-Reactive Protein 9.0 mg/L (0.0-4.9) H 12/04/23 10:31 NT-Pro-B Natriuret Pep 408 pg/mL (0-125) H 12/04/23 10:31 Total Protein 6.4 g/dL (6.6-8.7) L 12/04/23 10:31 Albumin 3.9 g/dL (3.5-5.2) 12/04/23 10:31 Globulin 2.5 g/dL (1.3-4.6) 12/04/23 10:31 Procalcitonin 0.04 ng/mL (0-0.5) 12/04/23 10:31 TSH 1.77 uIU/mL (0.27-4.20) 12/04/23 10:31 Urine Color Yellow (Yellow) 12/04/23 10:46 Urine Appearance Clear (CLEAR) 12/04/23 10:46 Urine pH 6 (5-7) 12/04/23 10:46 Ur Specific [place] 1.005 (1.005-1.030) 12/04/23 10:46 Urine Protein 1+ (Negative) H 12/04/23 10:46 Urine Glucose (UA) 4+ (Normal) H 12/04/23 10:46 Urine Ketones Negative (Negative) 12/04/23 10:46 Urine Blood Neg (Negative) 12/04/23 10:46 Urine Nitrate Negative (Negative) 12/04/23 10:46 Urine Bilirubin Neg (Negative) 12/04/23 10:46 Urine Urobilinogen Norm mg/dL (Negative) 12/04/23 10:46 Ur Leukocyte Esterase Negative (Negative) 12/04/23 10:46 Urine RBC Rare /hpf (0-2) 12/04/23 10:46 Urine WBC None /hpf (0-5) 12/04/23 10:46 Ur Squamous Epith Cells 0-4 /hpf (0-5) H 12/04/23 10:46 Amorphous Sediment Not Reportable 12/04/23 10:46 Urine Bacteria Trace /hpf (NONE) 12/04/23 10:46 Urine Mucus None /hpf 12/04/23 10:46 Adenovirus (PCR) Not detected (NOT DETECT) 12/04/23 10:29 C. pneumoniae DNA (PCR) Not detected (NOT DETECT) 12/04/23 10:29 Coronavirus 229E (PCR) Not detected (NOT DETECT) 12/04/23 10:29 Human Metapneumovir PCR Not detected (NOT DETECT) 12/04/23 10:29 Influenza A (H1) PCR Not detected (NOT DETECT) 12/04/23 10:29 Influ A (H1/09) PCR Not detected (NOT DETECT) 12/04/23 10:29 Influenza A (H3) PCR Not detected (NOT DETECT) 12/04/23 10:29 Influenza Type A (PCR) Not detected (NOT DETECT) 12/04/23 10:29 Influenza Type B (PCR) Not detected (NOT DETECT) 12/04/23 10:29 M. pneumoniae (PCR) Not detected (NOT DETECT) 12/04/23 10:29 Parainfluenza 1 (PCR) Not detected (NOT DETECT) 12/04/23 10:29 Parainfluenza 2 (PCR) Not detected (NOT DETECT) 12/04/23 10:29 Parainfluenza 3 (PCR) Not detected (NOT DETECT) 12/04/23 10:29 Parainfluenza 4 (PCR) Not detected (NOT DETECT) 12/04/23 10:29 RSV Type A (PCR) Not detected (NOT DETECT) 12/04/23 10:29 RSV Type B (PCR) Not detected (NOT DETECT) 12/04/23 10:29 Entero/Rhino (PCR) Not detected (NOT DETECT) 12/04/23 10:29 SARS-CoV-2 (PCR) Not detected (NOT DETECT) 12/04/23 10:29 All radiology interpretation(s) finalized by discharge Discharge Plan Discharge Patient Disposition: Admitted As Inpatient Clinical Impression: Pneumothorax, Atrial fibrillation, Acute on chronic hypoxic respiratory failure, COPD with acute exacerbation, Tobacco dependence, Chronic anticoagulation, Hyperglycemia Condition: Stable Coding Level of Care Code ED Fabric Separator Operator for Cordell Cortez
[2023-12-04 12:36] LABS: Adenovirus Not Detected (NOT DETECT); Chlamydia Pneumoniae Not Detected (NOT DETECT); Coronavirus 229E,HKU1,NL63,OC4 Not Detected (NOT DETECT); Human Metapneumovirus Not Detected (NOT DETECT); Human Rhinovirus/Enterovirus Not Detected (NOT DETECT); Influenza A Not Detected (NOT DETECT); Influenza A H1 Not Detected (NOT DETECT); Influenza A H1-2009 Not Detected (NOT DETECT); Influenza A H3 Not Detected (NOT DETECT); Influenza B Not Detected (NOT DETECT); Mycoplasma Pneumoniae Not Detected (NOT DETECT); Parainfluenza Virus Type 1 Not Detected (NOT DETECT); Parainfluenza Virus Type 2 Not Detected (NOT DETECT); Parainfluenza Virus Type 3 Not Detected (NOT DETECT); Parainfluenza Virus Type 4 Not Detected (NOT DETECT); Respiratory Syncytial Virus A Not Detected (NOT DETECT); Respiratory Syncytial Virus B Not Detected (NOT DETECT); SARS-COV-2 Not Detected (NOT DETECT)
[2023-12-04 13:00] LABS: Troponin 5 2HR 33.92 ng/L (0-10); Troponin 5 2HR Delta 0.92 ABS# (0-10)
[2023-12-04] MEDS: sodium chloride 0.9% 1,000 ML 999 ML IV (13:22)
[2023-12-04] MEDS: insulin regular-human 100 units/1 mL 10 UNIT IVP ×2 (13:23→21:19)
--- NOTE | 2023-12-04 14:19 | P.HP_ITS ---
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 Patient tells me that for the last few days she has had increased shortness of breath, increased lower extremity edema, with right-sided chest pain, no fevers, does have a cough, nonproductive, no hemoptysis, no lightheadedness, no dizziness Review of Systems 2 Const: Denies: fever(s) Card: Denies: chest pain Resp: Reports: dyspnea and non-productive cough Medications/Allergies Home Medications Medication Instructions Recorded Confirmed Last Taken Type blood sugar diagnostic (Blood #100 ea 06/30/19 12/04/23 Unknown Rx Glucose Test strips) blood-glucose meter (Blood Glucose #1 ea 01/22/20 12/04/23 Unknown Rx Monitoring kit) flash glucose scanning reader #1 ea 08/01/20 12/04/23 Unknown Rx (FreeStyle [address]) flash glucose sensor (FreeStyle #2 ea 08/01/20 12/04/23 Unknown Rx Jack 2 Sensor kit) oxygen-air delivery systems 01/17/22 12/04/23 Unknown History pen needle, diabetic 32 gauge x #100 ea 02/15/22 12/04/23 Unknown Rx 5/32 (BD Ultra-Fine [place] Pen Needle) nitroglycerin 0.4 mg sublingual 0.4 mg sublingual Q5M PRN chest 05/15/22 12/04/23 Unknown Rx tablet (Nitrostat) pain #25 tabs acetaminophen 325 mg tablet 325 mg PO QID PRN Pain 11/19/22 12/04/23 Unknown History diphenhydramine HCl 25 mg tablet 25 mg PO TID PRN Allergy Symptoms 11/19/22 12/04/23 Unknown History (Benadryl Allergy) ibuprofen 200 mg tablet 200 mg PO Q6H PRN Pain 11/19/22 12/04/23 Unknown History lisinopril 40 mg tablet 40 mg PO DAILY #90 tabs 01/04/23 12/04/23 12/03/23 Rx potassium chloride 20 mEq 20 meq PO DAILY #90 tabs 01/04/23 12/04/23 12/03/23 Rx tablet,extended release rivaroxaban 20 mg tablet (Xarelto) 20 mg PO DAILY #90 tabs 01/04/23 12/04/23 12/03/23 Rx spironolactone 50 mg tablet 50 mg PO DAILY #90 tabs 01/04/23 12/04/23 12/03/23 Rx ipratropium 0.5 mg-albuterol 3 mg 3 ml inhalation QID PRN wheezing 02/14/23 12/04/23 10/15/23 Rx (2.5 mg base)/3 mL nebulization #180 mL soln nebulizer and supplies #1 ea 02/14/23 12/04/23 Unknown Rx afflovest #1 ea 02/26/23 12/04/23 Unknown Rx furosemide 40 mg tablet 40 mg PO DAILY 04/10/23 12/04/23 12/03/23 History back brace #1 ea 04/15/23 12/04/23 Unknown Rx DC Home Health #1 ea 06/18/23 12/04/23 Unknown Rx modafinil 200 mg tablet 200 mg PO QAM #30 tabs 07/22/23 12/04/23 12/03/23 Rx aripiprazole 20 mg tablet (Abilify) 20 mg PO DAILY #30 tabs 07/24/23 12/04/23 12/03/23 Rx bupropion HCl 300 mg 24 hr tablet, 300 mg PO QAM #30 tabs 07/24/23 12/04/23 12/03/23 Rx extended release (Wellbutrin XL) fluticasone propionate 50 2 spray intranasal DAILY #16 grams 07/26/23 12/04/23 12/03/23 Rx mcg/actuation nasal spray,suspension (Flonase Allergy Relief) umeclidinium 62.5 mcg/actuation 1 inh inhalation DAILY #30 ea 08/01/23 12/04/23 12/03/23 Rx blister powder for inhalation (Incruse Ellipta) CPAP (Standard Cpap) 08/07/23 12/04/23 Unknown History hydroxychloroquine 200 mg tablet 200 mg PO BID #180 tabs 09/11/23 12/04/23 12/03/23 Rx prednisone 5 mg tablet 5 mg PO DAILY #90 tabs 09/11/23 12/04/23 12/03/23 Rx cholecalciferol (vitamin D3) 1,250 1,250 mcg PO Q7D 10/15/23 12/04/23 11/29/23 History mcg (50,000 unit) capsule gabapentin 600 mg tablet 600 mg PO TID 10/15/23 12/04/23 12/03/23 History metformin 500 mg tablet,extended 500 mg PO BID 10/15/23 12/04/23 12/03/23 History release 24 hr sertraline 100 mg tablet (Zoloft) 150 mg PO DAILY 10/15/23 12/04/23 12/03/23 History ciprofloxacin HCl 0.3 % eye See Rx Instructions ophthalmic 11/25/23 12/04/23 12/03/23 Rx ointment (Ciloxan) (eye) .COMPLEX #3.5 grams albuterol sulfate 2.5 mg/3 mL 2.5 mg inhalation Q6H PRN 12/04/23 12/04/23 Unknown History (0.083 %) solution for nebulization Shortness Of Breath Or Wheezing albuterol sulfate 90 mcg/actuation 2 puff inhalation Q8H PRN 12/04/23 12/04/23 Unknown History aerosol inhaler Shortness Of Breath Or Wheezing atorvastatin 20 mg tablet 20 mg PO BEDTIME 12/04/23 12/04/23 12/03/23 History budesonide-formoterol HFA 160 2 puff inhalation BID 12/04/23 12/04/23 12/03/23 History mcg-4.5 mcg/actuation aerosol inhaler clonazepam 0.5 mg tablet 0.5 mg PO TID PRN severe anxiety 12/04/23 12/04/23 12/03/23 History ipratropium 20 mcg-albuterol 100 1 puff inhalation Q6H PRN 12/04/23 12/04/23 Unknown History mcg/actuation mist for inhalation Shortness Of Breath (Combivent Respimat) zolpidem 5 mg tablet (Ambien) 5 mg PO BEDTIME PRN sleep 12/04/23 12/04/23 Unknown History Allergies Allergy/AdvReac Type Severity Reaction Status Date / Time Sulfa (Sulfonamide Allergy Unknown Unknown Verified 11/25/23 15:24 Antibiotics) quinine [From Quine] Allergy unknown Verified 11/25/23 15:24 ropinirole [From Requip] Allergy Unknown Verified 11/25/23 15:24 PFSH Acute 2 PFSH: Medical History Lower extremity weakness Positive AMI (antinuclear antibody) Disorders of diaphragm Atelectasis of both lungs CHF (congestive heart failure), NYHA class III Drug-induced myopathy Recurrent pneumonia Emphysema lung Encephalopathy acute Acute and chronic respiratory failure with hypercapnia UTI (urinary tract infection) due to Enterococcus Excessive daytime sleepiness Diabetes type 2, controlled Insomnia Gross hematuria UTI (urinary tract infection) Psychiatric care Essential (primary) hypertension Chronic obstructive pulmonary disease with (acute) exacerbation Polyneuropathy, unspecified Callus Porokeratosis PVD (peripheral vascular disease) Shortness of Breath Bilateral leg edema Angina pectoris 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 with no history of malignant neoplasm AF (paroxysmal atrial fibrillation) Hypertension Tobacco abuse disorder Uncontrolled type 2 diabetes mellitus with polyneuropathy Acute DM type 2 causing complication Cannabis dependence, uncomplicated Sleep apnea Nicotine dependence, cigarettes, with other nicotine-induced disorders Bipolar II disorder Post-traumatic stress disorder, chronic Surgical History H/O chest tube placement History of hysterectomy History of cholecystectomy History of appendectomy History of hernia repair Family History Father , AT AGE 21 Gunshot wound Mother , AT AGE 61 CAD (coronary artery disease) Other Cancer Diabetes Stroke Social History Smoking and tobacco/nicotine status: current every day tobacco/nicotine user cigarettes Packs smoked per day: 1.5 Years cigarettes smoked: 52 [ Other cigarette details: Started at age 10] Second hand smoke exposure: Yes Alcohol intake: current Alcohol intake frequency: holidays/special occasions only Alcohol type: other (mixed drink) Substance/Drug Use: former Date of last use: 2020 Adopted: No Caregiver/support person: No Lives independently: Yes Household members: significant other Housing: Manufactured/Mobile home Marital status: Life Partner Number of children: 0 Number of grandchildren: 0 Highest education level completed: Some College, No Degree service: No Current occupational status: disabled 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 Current occupational exposures/hazards: No Pets and animals: Yes (3 dogs) Pets & animals: dog(s) Leisure activites: fishing and other Leisure activities details: sewing, writing, gardening Sexually active: Yes How many partners: 1 Do you think of yourself as: Lesbian/Gautam/Homosexual Current gender identity: Female Latha/Islam: Sabianism Special latha needs: No Agree to transfusion: Yes Female Reproductive History: Para: 0 Spontaneous abortions: No Vitals/I&O/Wt Last Vital Signs Temp 97.7 F 12/04/23 10:04 Pulse 65 12/04/23 11:37 Resp 16 12/04/23 11:37 BP 113/80 12/04/23 11:00 Pulse Ox 95 12/04/23 11:37 O2 Del Method Nasal Cannula 12/04/23 11:37 O2 Flow Rate 4 12/04/23 11:37 12/03/23 12/04/23 12/04/23 22:59 06:59 14:59 Intake Total 150 / 150 Balance 150 / 150 Weight last 48 hrs Weight 131.542 kg Physical Exam 2 Const: COMMON NORMALS: no acute distress and patient oriented x3 HENMT: COMMON NORMALS: normocephalic HEAD & SCALP: normocephalic Eye: COMMON NORMALS: Equal, round and reactive pupils present Neck/C-Spine: COMMON NORMALS: no JVD Lymph: LYMPHATIC: no lymphadenopathy noted Resp: COMMON NORMALS: normal respiratory effort, No retractions, No use of accessory muscles and clear to auscultation bilaterally AUSCULTATION: c rackles and wheezes Cardio: COMMON NORMALS: no JVD, regular rate, regular rhythm, S1 normal heart sound present and S2 normal heart sound present RATE: regular rate RHYTHM: regular rhythm HEART SOUNDS: S1 normal heart sound present and S2 normal heart sound present GI: COMMON NORMALS: Normal to inspection, nondistended, normoactive bowel sounds present, Soft to palpation and non-tender : COMMON NORMALS: Yes no CVA tenderness Extremity: NARRATIVE EXTREMITY EXAM: 2+ edema Neuro: COMMON NORMALS: patient oriented x3, CN's II-XII intact bilaterally and moves all extremities OTHER: L facial drrop from chronic bells palsy Data 12/04/23 10:31 12/04/23 10:31 Micro: Microbiology 12/04/23 10:36 Blood Culture - Preliminary Blood SPECIMEN COLLECTED 12/04/23 10:31 Blood Culture - Preliminary Blood SPECIMEN COLLECTED A&P Assessment and plan (1) Acute hypoxic respiratory failure: (2) COPD exacerbation: (3) Pneumothorax on right: (4) CHF exacerbation: Plan acute hypoxic respiratory failure ? Multifactorial 1. Small to moderate RIGHT pneumothorax, estimated at 20%. No tension pneumothorax. 2. Small RIGHT pleural effusion. 3. Consolidation in the anterior RIGHT middle lobe is probably an area of atelectasis. This can be further evaluated after treatment for the pneumothorax. 4. Stable LEFT adrenal adenoma. 5. Mild pulmonary hypertension. ? Right pneumothorax COPD exacerbation ? Fluid overload, CHF exacerbation ? Plan ? Monitor in ICU closely ? Serial chest x-rays ? Avoid positive pressure ventilation ? Continue Solu-Medrol 40 mg IV every 8 hours ? Continue DuoNeb 's 1 dose IV Lasix 40 mg ? Right middle lobe atelectasis, once clinically stable, will likely need outpatient bronchoscopy ? Full code ? Hold Xarelto for DVT prophylaxis Atrial fibrillation ? Monitor heart rate closely Hold Xarelto History of COPD History of sleep apnea, hold CPAP for tonight Type 2 diabetes mellitus, low-dose sliding scale Attestations 2 Medical Necessity Statement*: Patient requires hospitalization, inpatient, greater than 2 midnights, for acute hypoxic respiratory failure secondary to COPD, CHF, right pneumothorax Diagnoses Acute hypoxic respiratory failure J96.01 COPD exacerbation J44.1 Pneumothorax on right J93.9 CHF exacerbation I50.9
--- NOTE | 2023-12-04 16:02 | ECG_ITS ---
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 Measurements Intervals [place] Rate: 61 P: -4 MI: 171 QRS: 54 QRSD: 93 T: 76 QT: 412 QTc: 416 Interpretive Statements SINUS RHYTHM WITH SINUS ARRHYTHMIA Compared to ECG 12/04/2023 11:42:05 Myocardial infarct finding no longer present Electronically Signed On 12-04-2023 17:18:15 CDT by Mo Adamson M.D. [email or web address]
[2023-12-04 16:39] LABS: Troponin 5 6HR 28.05 ng/L (0-10)
[2023-12-04 16:48] LABS: Troponin 5 6HR Delta -4.95 ng/L (0-12)
--- NOTE | 2023-12-04 16:54 | P.CONIM_ITS ---
Providers/Reason For Consult 2 Consulting Physician/Specialty*: Dr Cami Cameron - Pulmonary Critical Care Reason for Consult*: Respiratory Failure / PTx Requesting Physician: Blayne Cuevas Attending Physician: Blayne Cuevas MD Primary Care Provider: LILLIE Pleitez History of Present Illness History of Present Illness Alissa Beck is a 63 year old female with past medical history significant but not limited to HTN, DM2, chronic respiratory failure on chronic home o2 therapy , chronic CHFpEF Diastolic in etiology NYHA Class III, AF on Xeralto, COPD with her last FEV1 49% (1.45lit), JOSE MARIA on CPAP, tobacco dependence syndrome with 78 pack year hx of tobacco use with current use of 2-3 PPD (stared smoking at age 9 and on and for 45 years 2-3 PPD slowed to 1 PPD for a couple years but relapsed starin 2-3 PP for the last few months) Neuropaty, TCD with AMI and SS most likely Sjogren's syndrome on hydroxychloroquine and low dose prednisone, PVD, Pt with POSITIVE APS antibodies, beta-2 glycoprotein antibody and l Lupus anticoagulant + with cardiolipin antibody was negative , Bipolar disorder, who arrives to ER with C/o worsening Right side chest pain and worsening SOB. Patient states that she stared 10 days ago with nasal congestion, PND and progressive worsening of cough. She saw her PCP and she was given treatment for her conjuntivitis She remained with non productive cough and for the last 3-4 days she had experienced R side discomfort /mild pain however this morning pain intensified and was associated with worsening SOB couldn't catch my breath . Upon arrival ER her VS was stable , EKG was performed and chest X ray relevant for small apical R side Ptx. Ct scan of chest was requested ad is relevant for small to moderate Right side Ptx mostly anteriorly. She has exacerbation of her chronic R side atelectasis and trace of pleural effusion. She has order for ICU admisison however I am seeing pt in ER as ICU bed still is not available. Upon my evaluation pt is sitting at the side of the bed, her vital signs are stable with a HR 59x' , Sat 97 % on 4 lit NN and RR 18x'. She is not in distress and able to provide her hx. Pt claims that she feel 100 % better compared this AM. Pt states that she is currently smoking 2-3 PPD and states that she lives with her GF who is also a heavy smoker. Pt claim that she had a prior pneumothorax 4-5 years ago and she was seeing in this hospital and was sent to [place] and a chest tube was placed and took 6 days until chest tube could be removed. Per EMR she was evaluated at the pulmonary clinic by Dr Lopez on 08/07/2023 and pulmonary work-up was initiated. She is chronically in 2 Lit O2. She claims able to walk 100 ft. She reports intermittent LE edema. She claims to be very complaint with her CPAP , her Oxygen therapy and her inhalers. She is on daily combine therapy: LABA/ICS HFA via budesonide- formoterol HFA 160 mg /4.5 (SYMBICORT) + LAMA via umeclidinium 62.5 mcg (INCRUSE) + KATHERINE/MAY via albuterol Ipratropium (COMBIVENT) + PRN KATHERINE Albuterol On August 2023 she had her first PFT that was relevant for : FEV1/FVC 75 - FEV1 49% (1.45 L)- FVC 51% ( 1.92 L) - OUQ18-23% 67%- TLC 82% - RV109% - RV/TLC 128% - ERV 57% Test did not meet ATS criteria for bronchodilator testing however significant improvement at the small airways level. Data is more consistent with a restrictive pattern with air trapping. Unfortunately Diffusion capacity was not tested. per EMR she had several Chest Ct scan with the last one on 06/27/2023 and most of the scan have similar findings with a chronic minimal RL subsegmental atelectasis and post inflammatory reticulonodular scarring. Minimal parenchymal bleb. She is follow by Rheumatology for a dx of TCD with AMI and SS most likely Sjogren's syndrome on hydroxychloroquine and low dose prednisone. Review of Systems 2 General: Reports: 10 or more systems reviewed and unremarkable except in HPI and below Narrative: GENERAL:Denies fevers and chills. Reports stable weight. . EYES: Denies diplopia or blurred vision. report dx of conjuntivitis and was given ciprofloxacin drops. ENT:Denies earache, sore throat ++ runny nose. No epistaxis. Denies Snoring. NECK: Denies cervicalgia. No decrease of ROM. Denies lumps. CARDIOVASCULAR: Reports no episodes of CP except for today, reprots intermittent LE Edema. Denies Palpitations. PND RESPIRATORY: Reports + SOB, + cough + minimal sputum production. reports ++ some degree of post-nasal drip GASTROINTESTINAL:No GERD. No nausea, vomits or diarrhea. No constipation GENITOURINARY:No urinary incontinence. Denies Urinary Retention. Denies Hematuria Reports Hx of UTI MUSCULOSKELETAL: Reports LE weakness. Reports + muscle pain. No recent Fx or injuries SKIN: Claims no rash, ulcerations or unusual skin lesion NEUROLOGIC:Denies headache, numbness or motor deficits. PSYCHIATRIC: + Depression, + anxiety. Patient denies suicidal ideation. Medications/Allergies Home Medications Medication Instructions Recorded Confirmed Last Taken Type blood sugar diagnostic (Blood #100 ea 06/30/19 12/04/23 Unknown Rx Glucose Test strips) blood-glucose meter (Blood Glucose #1 ea 01/22/20 12/04/23 Unknown Rx Monitoring kit) flash glucose scanning reader #1 ea 08/01/20 12/04/23 Unknown Rx (FreeStyle Jack 2 [place]) flash glucose sensor (FreeStyle #2 ea 08/01/20 12/04/23 Unknown Rx Jack 2 Sensor kit) oxygen-air delivery systems 01/17/22 12/04/23 Unknown History pen needle, diabetic 32 gauge x #100 ea 02/15/22 12/04/23 Unknown Rx (BD Ultra-Fine [place] Pen Needle) nitroglycerin 0.4 mg sublingual 0.4 mg sublingual Q5M PRN chest 05/15/22 12/04/23 Unknown Rx tablet (Nitrostat) pain #25 tabs acetaminophen 325 mg tablet 325 mg PO QID PRN Pain 11/19/22 12/04/23 Unknown History diphenhydramine HCl 25 mg tablet 25 mg PO TID PRN Allergy Symptoms 11/19/22 12/04/23 Unknown History (Benadryl Allergy) ibuprofen 200 mg tablet 200 mg PO Q6H PRN Pain 11/19/22 12/04/23 Unknown History lisinopril 40 mg tablet 40 mg PO DAILY #90 tabs 01/04/23 12/04/23 12/03/23 Rx potassium chloride 20 mEq 20 meq PO DAILY #90 tabs 01/04/23 12/04/23 12/03/23 Rx tablet,extended release rivaroxaban 20 mg tablet (Xarelto) 20 mg PO DAILY #90 tabs 01/04/23 12/04/23 12/03/23 Rx spironolactone 50 mg tablet 50 mg PO DAILY #90 tabs 01/04/23 12/04/23 12/03/23 Rx ipratropium 0.5 mg-albuterol 3 mg 3 ml inhalation QID PRN wheezing 02/14/23 12/04/23 10/15/23 Rx (2.5 mg base)/3 mL nebulization #180 mL soln nebulizer and supplies #1 ea 02/14/23 12/04/23 Unknown Rx afflovest #1 ea 02/26/23 12/04/23 Unknown Rx furosemide 40 mg tablet 40 mg PO DAILY 04/10/23 12/04/23 12/03/23 History back brace #1 ea 04/15/23 12/04/23 Unknown Rx DC Home Health #1 ea 06/18/23 12/04/23 Unknown Rx modafinil 200 mg tablet 200 mg PO QAM #30 tabs 07/22/23 12/04/23 12/03/23 Rx aripiprazole 20 mg tablet (Abilify) 20 mg PO DAILY #30 tabs 07/24/23 12/04/23 12/03/23 Rx bupropion HCl 300 mg 24 hr tablet, 300 mg PO QAM #30 tabs 07/24/23 12/04/23 12/03/23 Rx extended release (Wellbutrin XL) fluticasone propionate 50 2 spray intranasal DAILY #16 grams 07/26/23 12/04/23 12/03/23 Rx mcg/actuation nasal spray,suspension (Flonase Allergy Relief) umeclidinium 62.5 mcg/actuation 1 inh inhalation DAILY #30 ea 08/01/23 12/04/23 12/03/23 Rx blister powder for inhalation (Incruse Ellipta) CPAP (Standard Cpap) 08/07/23 12/04/23 Unknown History hydroxychloroquine 200 mg tablet 200 mg PO BID #180 tabs 09/11/23 12/04/23 12/03/23 Rx prednisone 5 mg tablet 5 mg PO DAILY #90 tabs 09/11/23 12/04/23 12/03/23 Rx cholecalciferol (vitamin D3) 1,250 1,250 mcg PO Q7D 10/15/23 12/04/23 11/29/23 History mcg (50,000 unit) capsule gabapentin 600 mg tablet 600 mg PO TID 10/15/23 12/04/23 12/03/23 History metformin 500 mg tablet,extended 500 mg PO BID 10/15/23 12/04/23 12/03/23 History release 24 hr sertraline 100 mg tablet (Zoloft) 150 mg PO DAILY 10/15/23 12/04/23 12/03/23 History ciprofloxacin HCl 0.3 % eye See Rx Instructions ophthalmic 11/25/23 12/04/23 12/03/23 Rx ointment (Ciloxan) (eye) .COMPLEX #3.5 grams albuterol sulfate 2.5 mg/3 mL 2.5 mg inhalation Q6H PRN 12/04/23 12/04/23 Unknown History (0.083 %) solution for nebulization Shortness Of Breath Or Wheezing albuterol sulfate 90 mcg/actuation 2 puff inhalation Q8H PRN 12/04/23 12/04/23 Unknown History aerosol inhaler Shortness Of Breath Or Wheezing atorvastatin 20 mg tablet 20 mg PO BEDTIME 12/04/23 12/04/23 12/03/23 History budesonide-formoterol HFA 160 2 puff inhalation BID 12/04/23 12/04/23 12/03/23 History mcg-4.5 mcg/actuation aerosol inhaler clonazepam 0.5 mg tablet 0.5 mg PO TID PRN severe anxiety 12/04/23 12/04/23 12/03/23 History ipratropium 20 mcg-albuterol 100 1 puff inhalation Q6H PRN 12/04/23 12/04/23 Unknown History mcg/actuation mist for inhalation Shortness Of Breath (Combivent Respimat) zolpidem 5 mg tablet (Ambien) 5 mg PO BEDTIME PRN sleep 12/04/23 12/04/23 Unknown History Allergies Allergy/AdvReac Type Severity Reaction Status Date / Time Sulfa (Sulfonamide Allergy Unknown Unknown Verified 11/25/23 15:24 Antibiotics) quinine [From Quine] Allergy unknown Verified 11/25/23 15:24 ropinirole [From Requip] Allergy Unknown Verified 11/25/23 15:24 PFSH Acute 2 PFSH: Medical History Lower extremity weakness Positive AMI (antinuclear antibody) Disorders of diaphragm Atelectasis of both lungs CHF (congestive heart failure), NYHA class III Drug-induced myopathy Recurrent pneumonia Emphysema lung Encephalopathy acute Acute and chronic respiratory failure with hypercapnia UTI (urinary tract infection) due to Enterococcus Excessive daytime sleepiness Diabetes type 2, controlled Insomnia Gross hematuria UTI (urinary tract infection) Psychiatric care Essential (primary) hypertension Chronic obstructive pulmonary disease with (acute) exacerbation Polyneuropathy, unspecified Callus Porokeratosis PVD (peripheral vascular disease) Shortness of Breath Bilateral leg edema Angina pectoris 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 with no history of malignant neoplasm AF (paroxysmal atrial fibrillation) Hypertension Tobacco abuse disorder Uncontrolled type 2 diabetes mellitus with polyneuropathy Acute DM type 2 causing complication Cannabis dependence, uncomplicated Sleep apnea Nicotine dependence, cigarettes, with other nicotine-induced disorders Bipolar II disorder Post-traumatic stress disorder, chronic Surgical History H/O chest tube placement History of hysterectomy History of cholecystectomy History of appendectomy History of hernia repair Family History Father , AT AGE 21 Gunshot wound Mother , AT AGE 61 CAD (coronary artery disease) Other Cancer Diabetes Stroke Social History Smoking and tobacco/nicotine status: current every day tobacco/nicotine user cigarettes Packs smoked per day: 1.5 Years cigarettes smoked: 52 [ Other cigarette details: Started at age 10] Second hand smoke exposure: Yes Alcohol intake: current Alcohol intake frequency: holidays/special occasions only Alcohol type: other (mixed drink) Substance/Drug Use: former Date of last use: 2020 Adopted: No Caregiver/support person: No Lives independently: Yes Household members: significant other Housing: Manufactured/Mobile home Marital status: Life Partner Number of children: 0 Number of grandchildren: 0 Highest education level completed: Some College, No Degree service: No Current occupational status: disabled 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 Current occupational exposures/hazards: No Pets and animals: Yes (3 dogs) Pets & animals: dog(s) Leisure activites: fishing and other Leisure activities details: sewing, writing, gardening Sexually active: Yes How many partners: 1 Do you think of yourself as: Lesbian/Gautam/Homosexual Current gender identity: Female Latha/Shinto: Mandaeism Special latha needs: No Agree to transfusion: Yes Female Reproductive History: Para: 0 Spontaneous abortions: No Vitals/I&O/Wt Last Vital Signs Temp 97.7 F 12/04/23 10:04 Pulse 77 12/04/23 14:00 Resp 18 12/04/23 14:00 BP 183/108 12/04/23 13:00 Pulse Ox 95 12/04/23 14:00 O2 Del Method Nasal Cannula 12/04/23 11:37 O2 Flow Rate 4 12/04/23 11:37 12/04/23 12/04/23 12/04/23 06:59 14:59 22:59 Intake Total 150 / 150 Balance 150 / 150 Weight last 48 hrs Weight 290 lb Physical Exam 2 Narrative: GENERAL APPEARANCE: Pt with very poor hygiene. Obese. No acute distress. She is Cooperative and capable to provied hx NEUROLOGIC: No focal findings. Normal mental status. Normal speech. AO x 3. She is sitting at the side of bed and claiming being cold. . HEENT: Normocephalic and atraumatic. PERRLA. No nasal external lesion noted. On NCO2 2 lit with a saturation 96% MOUTH: Oral mucosa moist no lesion noted. Mallampati score III. No thrush PHARYNX: Mucosa non-inflamed, no exudate. NECK: Supple. No JVD. No adenopathy. Thyroid non-enlarged and non-tender. No evidence of SQ emphysema. PULMONARY: Obese, mild kyphosis . Decrease of BS actually at posterior Right hemithorax with residual + wheezing . Left hemithorax BS + No wheezing mild basilar crackles. CARDIOVASCULAR: S1 and S2 seems irregular and bradycardic. No murmur, rub or gallop. ABDOMEN: Obese. Benign, soft, nontender. No masses. Bowel sounds were positive. RENAL: No costovertebral angle tenderness. No mass. ENDOCRINE: Obese. No evidence of thyromegaly, acromegaly or Andres features. SKIN: Good turgor, no rash, + bruising on hand and distal arm /exposure areas. EXTREMITIES: No evidence of ulnar deviation as well as no significant distal joint deformity. No evidence of cyanosis or clubbing. No edema. Data 12/04/23 10:31 12/04/23 10:31 Micro: Microbiology 12/04/23 10:36 Blood Culture - Preliminary Blood SPECIMEN COLLECTED 12/04/23 10:31 Blood Culture - Preliminary Blood SPECIMEN COLLECTED CT Chest: I personally reviewed and interpreted this imaging study as follows: My impression: Chonic basilar bandlike atelectasis, small R side pleural effusion and small - moderate R side PTx. No evidence of SQ emphysema. CXR: My impression: Chest X ray from 10 Am and follow up Chest X ray at 16:00 shown no significant changes , slightly improvement of apical Ptx 16:23 PM 10:46 AM Other data: * PULMONARY DATA PFT 08/28/23 FEV1/FVC 75 - FEV1 49% (1.45 L)- FVC 51% ( 1.92 L) - QFH12-80% 67%- TLC 82% - RV109% - RV/TLC 128% - ERV 57% Test did not meet ATS criteria for bronchodilator testing however significant improvment at the small airways level, * RADIOLOGICAL DATA 06/27/22 LDCT LUNG CANCER SCREENING No nodules or endobronchial lesions are identified Hyperinflated lungs with emphysema. There is mild bilateral bronchial wall thickening. 02/02/[address] W/O CONTRAST Patchy airspace opacification at the lung bases right > than left. Minimal subsegmental atelectasis vs post inflammatory reticulonodular scarring. Minimal parenchymal bleb. GGO nodular with a bandlike at the RML Right trace pleural effusion 12/04/[address] Small to moderate Right side PTx Small R side pleural effusion. Rihgt ML atelectasis * CARDIOLOGY DATA 12/10/22 ECHO Normal left ventricular size, systolic function and wall thickness, with no regional wall motion abnormalities. Left ventricular ejection fraction is estimated at 65 %. Grade II diastolic dysfunction, moderately elevated filling pressures. 2. Dilated IVC with normal respiratory variation. 3 No significant change when compared to study dated 04/01/2020. A&P Assessment and plan (1) Acute on chronic hypoxic respiratory failure: (2) Recurrent spontaneous pneumothorax: (3) Restrictive lung disease: (4) COPD (chronic obstructive pulmonary disease): Qualifiers: COPD type: chronic bronchitis Chronic bronchitis type: mucopurulent Qualified Code(s): J41.1 - Mucopurulent chronic bronchitis (5) Heart failure with preserved ejection fraction: Qualifiers: Heart failure chronicity: chronic Qualified Code(s): I50.32 - Chronic diastolic (congestive) heart failure (6) Diastolic heart failure: Qualifiers: Heart failure chronicity: chronic Qualified Code(s): I50.32 - Chronic diastolic (congestive) heart failure (7) Atrial fibrillation: Qualifiers: Atrial fibrillation type: paroxysmal Qualified Code(s): I48.0 - Paroxysmal atrial fibrillation (8) Tobacco dependence with current use: (9) Chronic atelectasis: (10) JOSE MARIA (obstructive sleep apnea): (11) SS-A antibody positive: (12) Antiphospholipid antibody positive: 63 year old female with past medical history significant but not limited to Morbid Obesity BMI 41, HTN, DM2, chronic respiratory failure on chronic home o2 therapy , chronic CHFpEF Diastolic in etiology NYHA Class III, AF on Xeralto, COPD with her last FEV1 49% (1.45lit), JOSE MARIA on CPAP, tobacco dependence syndrome with 78 pack year hx of tobacco use with current use of 2-3 PPD (stared smoking at age 9 and on currently 2-3 PPD) Neuropaty, TCD with AMI and SS most likely Sjogren's syndrome on hydroxychloroquine and low dose prednisone, PVD, Pt with POSITIVE APS antibodies, beta-2 glycoprotein antibody and l Lupus anticoagulant + with NEG cardiolipin antibody , Bipolar disorder, who arrives to ER with C/o worsening Right side chest pain and worsening SOB and was dx with a recurrent Right side Ptx. Plan 1. ACUTE ON CHRONIC HYPOXIC RESPIRATORY FAILURE Pt with chronic hypoxic respiratory failure with a basal requiremnt of 2 Lit NC who developed worsening SOB , worsening of WOB with an increase of O2 requirements. Most likely secondary to lung volume loss due development of a RECURRENT RIGHT SIDE PTX. Agree to keep current level of O2 supplementation as part of increasing FiO2 as part of conservative Ptx management. 2. RECURRENT RIGHT SIDE PNEUMOTHORAX Pt with prior hx of R side PTx that required a chest tube placement. Pt states that she was transfer to another institution. Pt claims that she had a chest tube for near 6 days . I do not have those records. However prolong chest tube in a Ptx could be secondary to broncho-pleural fistula Vs delay or re-expansion. Pt at this time is stable, without increase of WOB. Chest X ray with slightly improvement. If Pt tomorrow remains with R side wheezing and Xray without significant re- expansion I would considered the placement of a pig-tail type of chest tube that will allow less traumatic approach and would also allow access for a chemical pleurodesis as this is a recurrent event. I suspect that her Right side RL/RML band like atelectasis is secondary to prior Chest tube insertion. Continue with supportive measures with KATHERINE + MAY + Systemic steroids. Consider azithromycin as anti-inflammatory/COPD exacerbation 3. RESTRICTIVE LUNG DISEASE PT is more restrictive defect. SHe has some increase of reticular pattern. She has ++ serology for Sjogren's disease and she is on prednisone 5 mg + hydroxichloroquine She may have lung involvment with some interstitial pattern / cystic changes consistent with pulmonary fibrosis. Unfortunately her PFT was not a complete study and diffusion capacity testing was not perform. Regardless of her underlying lung parenchymal condition at this moment management should be focus to her acute event of Ptx and attmept to preserve her lung function. She will require further work up. 4. COPD Pt PFT shows no obstructive pattern however she has significant involvement of small airways level and she has 75 pack years hx of tobacco abuse currently smoking up to 3 PPD Continue with combine therapy of KATHERINE+ SMA schedule + ICS + Systemic steroids. Pt is NOT candidate at this time for any Flitter or PEP device as will create more auto-peep /valsalva Recommend mucinex / mucolytics. 4. CHF pEF 5. DIASTOLIC HEART FAILURE By physical exam she seems euvolemic. Avoid fluid overload 6. ATRIAL FIBRILATION Hr is controlled. Her OAC have been held. Re-start AC with enoxaparin if chest tube is place or held for the next 24 hs. Pt with a baseline high risk of thromboemebolic defect as per serology testing. Avoid over use of bronchodilators. 7. TOBACCO DEPENDECE SYNDROME 75 pack year hx with current 2-3 PPD consumption. Pt will require NRT . Pt agreed to proceed. 8. CHRONIC RIGHT SIDE ATELECTASIS Already seens in Ct form 2021 and 2022 . Most likely secondary to priro Chest tube placed for a R side Ptx inthe past. Avoid fluid overload, keep pt is sitting up position, she will need to hold the incentive spirometry as can worsen her PTX 9. JOSE MARIA Pt will remains on O2 10. SS-A AB + 11. AP AB + pt requires anticoagulation as she is HIGH risk for thomboembolic defect. I would consider start with SQ enoxaparin if we are going to stand by for her chest tube or if we place chest tube within the next 24 hs. Coding Level of Care Code 74054 Diagnoses Acute on chronic hypoxic respiratory failure J96.21 Recurrent spontaneous pneumothorax J93.83 Restrictive lung disease J98.4 Mucopurulent chronic bronchitis J41.1 COPD type: chronic bronchitis Chronic bronchitis type: mucopurulent Chronic heart failure with preserved ejection fraction I50.32 Heart failure chronicity: chronic Chronic diastolic heart failure I50.32 Heart failure chronicity: chronic Paroxysmal atrial fibrillation I48.0 Atrial fibrillation type: paroxysmal Tobacco dependence with current use F17.200 Chronic atelectasis J98.11 JOSE MARIA (obstructive sleep apnea) G47.33 SS-A antibody positive R76.8 Antiphospholipid antibody positive R76.0 Time Spent (min) 80 Comment Pt evaluation -extensive MR - radiologic testing and follow up to evaluate progres
--- NOTE | 2023-12-04 17:47 | PC.NURSE ---
pt refused to wear BP cuff because it was squeezing her arm too tight. pt educated on the need for monitoring, pt agreed to wear pulse ox but kept taking off bp cuff
--- NOTE | 2023-12-04 18:00 | XRR_ITS ---
PROCEDURE INFORMATION: Exam: XR Chest Exam date and time: 12/04/2023 6:14 PM Age: 63 years old Clinical indication: Shortness of breath; Additional info: SOB TECHNIQUE: Imaging protocol: Radiologic exam of the chest. Views: 1 view. COMPARISON: CR XR chest 1V portable [id number] 12/04/2023 4:22 PM FINDINGS: Lungs: Persistent consolidation of the right lung base. Pleural spaces: Decreasing size of a small right apical pneumothorax. Trace right-sided pleural effusion. Heart/Mediastinum: Unremarkable. No cardiomegaly. Bones/joints: Unremarkable. XR/XR chest 1V portable [id number] IMPRESSION: Decreasing size of a small right apical pneumothorax. Persistent consolidation of the right lung base.
--- NOTE | 2023-12-04 18:00 | XRR_ITS ---
PROCEDURE INFORMATION: Exam: XR Chest Exam date and time: 12/04/2023 4:22 PM Age: 63 years old Clinical indication: Shortness of breath; Additional info: SOB TECHNIQUE: Imaging protocol: Radiologic exam of the chest. Views: 1 view. COMPARISON: CT chest con [id number] 12/04/2023 12:15 PM FINDINGS: Lungs: Central vascular congestion without overt pulmonary edema. Consolidation within the right medial lung base. Pleural spaces: Small right apical pneumothorax, unchanged compared to prior chest CT. Heart/Mediastinum: Unremarkable. No cardiomegaly. Bones/joints: Unremarkable. XR/XR chest 1V portable [id number] IMPRESSION: Small right apical pneumothorax, unchanged compared to prior chest CT. Central vascular congestion without overt pulmonary edema. Consolidation within the right medial lung base.
[2023-12-04] MEDS: FUROsemide 10 mg/mL SDV 4mL 40 MG IVP (18:44)
[2023-12-04] MEDS: HYDROcodone-acetaminophen 10-325 mg Tablet 1 TAB PO (18:44)
[2023-12-04] MEDS: pantoprazole 40 mg SDV IVP (18:45)
[2023-12-04] MEDS: atorvastatin 40 mg Tablet PO (20:30)
[2023-12-04] MEDS: gabapentin 300 mg Capsule 600 MG PO (20:30)
[2023-12-04 20:53] LABS: Glucose Point of Care 512 mg/dL (70-110)
[2023-12-04 20:53] LABS: Glucose Point of Care 540 mg/dL (70-110)
[2023-12-04] MEDS: insulin lispro 100 unit/1 mL SUBCUT (21:15)
[2023-12-04 21:57] LABS: Glucose Point of Care 462 mg/dL (70-110)
[2023-12-04] MEDS: CLONazepam 0.5 mg Tablet PO (22:12)
[2023-12-04 22:16] LABS: Add Urine Microscopic? NO; Charge for UA Resulting for Rev
[2023-12-04 22:21] LABS: Bilirubin Urine Neg (Negative); Blood Urine Neg (Negative); Glucose Urine UA 4+ (Normal); Ketones Urine Negative (Negative); Nitrate Urine Negative (Negative); Protein Urine Neg (Negative); Specific Gravity, Urine 1.005 (1.005-1.030); Urine Appearance Clear (CLEAR); Urine Color Yellow (Yellow); pH Urine 5 (5-7)
[2023-12-04 22:22] LABS: Leukocyte Esterase Urine Negative (Negative); Urobilinogen Urine Neg (Negative)
[2023-12-04] MEDS: morphine 4 mg/mL SDV 1 mL 2 MG IVP (22:45)
[2023-12-04] MEDS: insulin regular-human 10 UNIT in SYRINGE 1 EACH IVP (23:05)
[2023-12-04 23:43] LABS: Glucose Point of Care 321 mg/dL (70-110)
[2023-12-05] VITALS (99 sets, daily range): BP systolic 109–162; BP diastolic 47–82; PULSE 43–110; RESP 9–29; TEMP 36.1; O2SAT 66–99; BMI 40.6
[2023-12-05] MEDS: ipratropium-albuterol 3 mL Neb INHALATION ×2 (01:51→07:37)
[2023-12-05 05:37] LABS: Basophils % 0.2 %; Eosinophils % 0.3 %; Hematocrit 38.4 % (36-47); Lymphocytes # 0.9 10^3/uL (0.8-4.8); Lymphocytes % 6.9 %; Mean Corpuscular HGB Conc 32.6 g/dL (30-55); Mean Corpuscular Hemoglobin 28.3 pg (27-33); Mean Corpuscular Volume 86.9 fl (85-98); Mean Platelet Volume 9.8 fL (7.4-10.4); Monocytes # 0.8 10^3/uL (0.2-0.9); Monocytes % 5.9 %; Neutrophils # 10.92 10^3/uL (1.8-7.7); Neutrophils % 86.1 %; Nucleated Red Blood Cells % 0 %; Platelet Count 231 10^3/cmm (157-399); Red Blood Count 4.42 10^6/uL (3.85-5.65); Red Cell Distribution Width 13.2 % (12.1-15.1); White Blood Count 12.67 10^3/uL (3.29-11.43)
[2023-12-05] MEDS: methylPREDNISolone sod succ 40 mg/mL INJ IVP (06:04)
[2023-12-05] MEDS: buPROPion XL (24 HR) 150 mg Tablet 300 MG PO (06:04)
[2023-12-05 06:11] LABS: Alanine Aminotransferase 11 U/L (0-33); Albumin Level 3.9 g/dL (3.5-5.2); Alkaline Phosphatase 85 U/L (35-105); Anion Gap 16.7 (5-19); Aspartate Amino Transferase 7 U/L (0-32); Blood Urea Nitrogen 28 mg/dL (8-23); Calcium 9.2 mg/dL (8.5-10.5); Carbon Dioxide 25 mmol/L (22-29); Chloride 99 mmol/L (98-107); Creatinine Clr Calc Pharmacy 93.4105; Globulin 2.9 g/dL (1.3-4.6); Glomerular Filtration Rate 63.2 mL/min (90-130); Glucose 248 mg/dL (65-115); Osmolality Calculated 296 mOsm/kg (285-295); Potassium 4.7 mmol/L (3.5-5.1); Sodium 136 mmol/L (136-145); Thyroid Stimulating Hormone 0.62 uIU/mL (0.27-4.20); Total Bilirubin 0.2 mg/dL (0.15-1.2); Total Protein 6.8 g/dL (6.6-8.7)
--- NOTE | 2023-12-05 06:11 | XR_ITS ---
WS: [id number] XR chest 1V portable [id number] REASON FOR EXAM: pneumothorax FINDINGS: Compared to the examination of 6:00 p.m. 12/04/2023, the medial and apical right thorax have decreased in volume. Small apical pneumothorax and small pneumothorax interposed between the lung and the mediastinum jalen in. No other interval change or new finding in the chest. XR/XR chest 1V portable [id number] IMPRESSION: Continued resolving of the right pneumothorax as above.
[2023-12-05 06:12] LABS: Chol HDL Ratio 2.48 mg/dL (0.0-4.40); Cholesterol 129 mg/dL (0-200); HDL Cholesterol 52 mg/dL (60-100); LDL Cholesterol Calculated 57 mg/dL (50-129); NT Pro B Type Natriuretic Pept 888 pg/mL (0-125); Triglycerides 100 mg/dL (0-150)
[2023-12-05 06:13] LABS: Estmated Average Glucose 240
[2023-12-05 06:29] LABS: Glucose Point of Care 263 mg/dL (70-110)
--- NOTE | 2023-12-05 06:49 | P.CONIM_ITS ---
Providers/Reason For Consult 2 Consulting Physician/Specialty*: Cami Cameron MD / Pulmonary & Critical Care Reason for Consult*: Follow up Acute on Chronic Respiratory failure secondary to R ight side recurrent pneumothorax Attending Physician: Blayne Cuevas MD Primary Care Provider: LILLIE Pleitez History of Present Illness History of Present Illness As documented yesterday Alissa Beck is a 63 year old female with past medical history significant but not limited to Morbid Obesity, BMI 40, HTN, DM2, chronic respiratory failure on chronic home o2 therapy , chronic CHFpEF Diastolic in etiology NYHA Class III, AF on Xeralto, severe Restrictive lung disease, COPD with her last FEV1 49% (1.45lit), JOSE MARIA on CPAP, tobacco dependence syndrome with 78 pack year hx of tobacco use with current use of 2-3 PPD, peripheral Neuropaty, TCD with AMI and SS most likely Sjogren's syndrome on hydroxychloroquine and low dose prednisone, PVD, Pt with POSITIVE APS antibodies, beta-2 glycoprotein antibody and POS Lupus anticoagulant with NEG cardiolipin antibody, Bipolar disorder, who was admitted to this institution on 12/03/22 after ER arrival with C/o worsening Right side chest pain and worsening SOB. Work up was relevant for R side small - moderate R side Ptx. * 12/04/23 Conservative management was initiated. Pt was placed on higher FiO2 / management of CODP with KATHERINE/MAY/ICS / SYSTEMIC Steroids/ and recurrent f/u X rays demonstrating stability of Ptx with slight improvement. * 12/05/23 Pt is claiming significant improvement regarding her chest pain, reports no much congestion anymore , isolated cough. Per objective sussy pt remains stable saturation, table WOB, and hemodynamically stable. No New chest X ray was available upon my evaluation Review of Systems 2 General: Reports: 10 or more systems reviewed and unremarkable except in HPI and below Narrative: GENERAL:Denies fevers and chills. Denies overnight issues- she is sleepy EYES: Denies diplopia or blurred vision.Denies secretions. ENT:Denies earache, sore throat or runny nose. No epistaxis. NECK: Denies cervicalgia. No decrease of ROM. Denies lumps. CARDIOVASCULAR: Reports no episodes of CP. Denies LE Edema. Denies Palpitations. PND RESPIRATORY: Reports no SOB, + seldom cough without sputum production. Denies post-nasal drip GASTROINTESTINAL:No GERD. No nausea, vomits or diarrhea. No constipation GENITOURINARY:No urinary incontinence. Denies Urinary Retention. Denies Hematuria MUSCULOSKELETAL: Reports no weakness. Reports no muscle pain. No falls SKIN: Claims no rash, ulcerations or unusual skin lesion NEUROLOGIC:Denies headache, numbness or motor deficits. PSYCHIATRIC: Denies Depression, and anxiety. Patient denies suicidal ideation. Medications/Allergies Home Medications Medication Instructions Recorded Confirmed Last Taken Type blood sugar diagnostic (Blood #100 ea 06/30/19 12/04/23 Unknown Rx Glucose Test strips) blood-glucose meter (Blood Glucose #1 ea 01/22/20 12/04/23 Unknown Rx Monitoring kit) flash glucose scanning reader #1 ea 08/01/20 12/04/23 Unknown Rx (FreeStyle Jack 2 [place]) flash glucose sensor (FreeStyle #2 ea 08/01/20 12/04/23 Unknown Rx Jack 2 Sensor kit) oxygen-air delivery systems 01/17/22 12/04/23 Unknown History pen needle, diabetic 32 gauge x #100 ea 02/15/22 12/04/23 Unknown Rx 5/32 (BD Ultra-Fine Corine Pen Needle) nitroglycerin 0.4 mg sublingual 0.4 mg sublingual Q5M PRN chest 05/15/22 12/04/23 Unknown Rx tablet (Nitrostat) pain #25 tabs acetaminophen 325 mg tablet 325 mg PO QID PRN Pain 11/19/22 12/04/23 Unknown History diphenhydramine HCl 25 mg tablet 25 mg PO TID PRN Allergy Symptoms 11/19/22 12/04/23 Unknown History (Benadryl Allergy) ibuprofen 200 mg tablet 200 mg PO Q6H PRN Pain 11/19/22 12/04/23 Unknown History lisinopril 40 mg tablet 40 mg PO DAILY #90 tabs 01/04/23 12/04/23 12/03/23 Rx potassium chloride 20 mEq 20 meq PO DAILY #90 tabs 01/04/23 12/04/23 12/03/23 Rx tablet,extended release rivaroxaban 20 mg tablet (Xarelto) 20 mg PO DAILY #90 tabs 01/04/23 12/04/23 12/03/23 Rx spironolactone 50 mg tablet 50 mg PO DAILY #90 tabs 01/04/23 12/04/23 12/03/23 Rx ipratropium 0.5 mg-albuterol 3 mg 3 ml inhalation QID PRN wheezing 02/14/23 12/04/23 10/15/23 Rx (2.5 mg base)/3 mL nebulization #180 mL soln nebulizer and supplies #1 ea 02/14/23 12/04/23 Unknown Rx afflovest #1 ea 02/26/23 12/04/23 Unknown Rx furosemide 40 mg tablet 40 mg PO DAILY 04/10/23 12/04/23 12/03/23 History back brace #1 ea 04/15/23 12/04/23 Unknown Rx DC Home Health #1 ea 06/18/23 12/04/23 Unknown Rx modafinil 200 mg tablet 200 mg PO QAM #30 tabs 07/22/23 12/04/23 12/03/23 Rx aripiprazole 20 mg tablet (Abilify) 20 mg PO DAILY #30 tabs 07/24/23 12/04/23 12/03/23 Rx bupropion HCl 300 mg 24 hr tablet, 300 mg PO QAM #30 tabs 07/24/23 12/04/23 12/03/23 Rx extended release (Wellbutrin XL) fluticasone propionate 50 2 spray intranasal DAILY #16 grams 07/26/23 12/04/23 12/03/23 Rx mcg/actuation nasal spray,suspension (Flonase Allergy Relief) umeclidinium 62.5 mcg/actuation 1 inh inhalation DAILY #30 ea 08/01/23 12/04/23 12/03/23 Rx blister powder for inhalation (Incruse Ellipta) CPAP (Standard Cpap) 08/07/23 12/04/23 Unknown History hydroxychloroquine 200 mg tablet 200 mg PO BID #180 tabs 09/11/23 12/04/23 12/03/23 Rx prednisone 5 mg tablet 5 mg PO DAILY #90 tabs 09/11/23 12/04/23 12/03/23 Rx cholecalciferol (vitamin D3) 1,250 1,250 mcg PO Q7D 10/15/23 12/04/23 11/29/23 History mcg (50,000 unit) capsule gabapentin 600 mg tablet 600 mg PO TID 10/15/23 12/04/23 12/03/23 History metformin 500 mg tablet,extended 500 mg PO BID 10/15/23 12/04/23 12/03/23 History release 24 hr sertraline 100 mg tablet (Zoloft) 150 mg PO DAILY 10/15/23 12/04/23 12/03/23 History ciprofloxacin HCl 0.3 % eye See Rx Instructions ophthalmic 11/25/23 12/04/23 12/03/23 Rx ointment (Ciloxan) (eye) .COMPLEX #3.5 grams albuterol sulfate 2.5 mg/3 mL 2.5 mg inhalation Q6H PRN 12/04/23 12/04/23 Unknown History (0.083 %) solution for nebulization Shortness Of Breath Or Wheezing albuterol sulfate 90 mcg/actuation 2 puff inhalation Q8H PRN 12/04/23 12/04/23 Unknown History aerosol inhaler Shortness Of Breath Or Wheezing atorvastatin 20 mg tablet 20 mg PO BEDTIME 12/04/23 12/04/23 12/03/23 History budesonide-formoterol HFA 160 2 puff inhalation BID 12/04/23 12/04/23 12/03/23 History mcg-4.5 mcg/actuation aerosol inhaler clonazepam 0.5 mg tablet 0.5 mg PO TID PRN severe anxiety 12/04/23 12/04/23 12/03/23 History ipratropium 20 mcg-albuterol 100 1 puff inhalation Q6H PRN 12/04/23 12/04/23 Unknown History mcg/actuation mist for inhalation Shortness Of Breath (Combivent Respimat) zolpidem 5 mg tablet (Ambien) 5 mg PO BEDTIME PRN sleep 12/04/23 12/04/23 Unknown History Allergies Allergy/AdvReac Type Severity Reaction Status Date / Time Sulfa (Sulfonamide Allergy Unknown Unknown Verified 11/25/23 15:24 Antibiotics) quinine [From Quine] Allergy unknown Verified 11/25/23 15:24 ropinirole [From Requip] Allergy Unknown Verified 11/25/23 15:24 Current Medications Generic Name Dose Route Start Last Admin Trade Name Freq PRN Reason Stop Dose Admin Albuterol/Ipratropium 3 ml 12/04/23 20:00 12/05/23 01:51 Ipratropium-Albuterol 3 Ml Neb INHALATION 3 ml Q6H.RESP MAXIMILIANO Administration Atorvastatin Calcium 40 mg 12/04/23 21:00 12/04/23 20:30 Atorvastatin 40 Mg Tablet PO 40 mg BEDTIME MAXIMILIANO Administration Bupropion HCl 300 mg 12/05/23 06:00 12/05/23 06:04 Bupropion Xl (24 Hr) 150 Mg Tablet PO 300 mg QAM MAXIMILIANO Administration Clonazepam 0.5 mg 12/04/23 17:45 12/04/23 22:12 Clonazepam 0.5 Mg Tablet PO 0.5 mg TID PRN Administration severe anxiety Gabapentin 600 mg 12/04/23 21:00 12/04/23 20:30 Gabapentin 300 Mg Capsule PO 600 mg TID MAXIMILIANO Administration Insulin Human Lispro 0 unit 12/04/23 18:00 12/04/23 21:15 Insulin Lispro 100 Unit/1 Ml SUBCUT 16 unit WM&BEDTIME MAXIMILIANO Administration Protocol Methylprednisolone Sodium Succinate 40 mg 12/05/23 07:00 12/05/23 06:04 Methylprednisolone Sod Succ 40 Mg/Ml Inj IVP 40 mg Q8H MAXIMILIANO Administration Morphine Sulfate 2 mg 12/04/23 17:45 12/04/23 22:45 Morphine 4 Mg/Ml Sdv 1 Ml IVP 2 mg Q4H PRN Administration SEVERE PAIN Pantoprazole Sodium 40 mg 12/04/23 17:45 12/04/23 18:45 Pantoprazole 40 Mg Sdv IVP 40 mg Q24H MAXIMILIANO Administration PFSH Acute 2 PFSH: Medical History Lower extremity weakness Positive AMI (antinuclear antibody) Disorders of diaphragm Atelectasis of both lungs CHF (congestive heart failure), NYHA class III Drug-induced myopathy Recurrent pneumonia Emphysema lung Encephalopathy acute Acute and chronic respiratory failure with hypercapnia UTI (urinary tract infection) due to Enterococcus Excessive daytime sleepiness Diabetes type 2, controlled Insomnia Gross hematuria UTI (urinary tract infection) Psychiatric care Essential (primary) hypertension Chronic obstructive pulmonary disease with (acute) exacerbation Polyneuropathy, unspecified Callus Porokeratosis PVD (peripheral vascular disease) Shortness of Breath Bilateral leg edema Angina pectoris 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 with no history of malignant neoplasm AF (paroxysmal atrial fibrillation) Hypertension Tobacco abuse disorder Uncontrolled type 2 diabetes mellitus with polyneuropathy Acute DM type 2 causing complication Cannabis dependence, uncomplicated Sleep apnea Nicotine dependence, cigarettes, with other nicotine-induced disorders Bipolar II disorder Post-traumatic stress disorder, chronic Surgical History H/O chest tube placement History of hysterectomy History of cholecystectomy History of appendectomy History of hernia repair Family History Father , AT AGE 21 Gunshot wound Mother , AT AGE 61 CAD (coronary artery disease) Other Cancer Diabetes Stroke Social History Smoking and tobacco/nicotine status: current every day tobacco/nicotine user cigarettes Packs smoked per day: 1.5 Years cigarettes smoked: 52 [ Other cigarette details: Started at age 10] Second hand smoke exposure: Yes Alcohol intake: current Alcohol intake frequency: holidays/special occasions only Alcohol type: other (mixed drink) Substance/Drug Use: former Date of last use: 2020 Adopted: No Caregiver/support person: No Lives independently: Yes Household members: significant other Housing: Manufactured/Mobile home Marital status: Life Partner Number of children: 0 Number of grandchildren: 0 Highest education level completed: Some College, No Degree service: No Current occupational status: disabled 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 Current occupational exposures/hazards: No Pets and animals: Yes (3 dogs) Pets & animals: dog(s) Leisure activites: fishing and other Leisure activities details: sewing, writing, gardening Sexually active: Yes How many partners: 1 Do you think of yourself as: Lesbian/Gautam/Homosexual Current gender identity: Female Latha/Zoroastrianism: Anglican Special latha needs: No Agree to transfusion: Yes Female Reproductive History: Para: 0 Spontaneous abortions: No Vitals/I&O/Wt Last Vital Signs Temp 97.6 F 12/04/23 20:00 Pulse 53 L 12/05/23 05:51 Resp 15 12/05/23 03:24 BP 116/61 12/05/23 03:24 Pulse Ox 97 12/05/23 03:24 O2 Del Method Nasal Cannula 12/05/23 03:24 O2 Flow Rate 4 12/05/23 03:24 12/04/23 12/04/23 12/05/23 14:59 22:59 06:59 Intake Total 150 / 150 1000 / 1150 221.1 / 1371.1 Output Total 975 / 975 Balance 150 / 150 1000 / 1150 -753.9 / 396.1 Weight last 48 hrs Weight 283 lb 3.2 oz Weight 287 lb 11.2 oz Weight 290 lb Physical Exam 2 Narrative: GENERAL: Patient is awake alert and oriented, in no acute distress. She was not able to wear her CPAP and her modafinil have been on hold. NECK: No JVD - Trachea midline - No adenopathy or mass. No evidence of neck or supraclavicular SQ emphysema. RESPIRATORY: No chest wall deformities. Mild Kyphosis. Still + decrease BS on R posteriro and apical hemithorax with ++ Bilateral diffuse wheezing. CARDIOVASCULAR: Irregular/regular , S1-S2 present, no murmur, minimal peripheral edema ABDOMEN: Obese, Soft, nontender, No distended , positive bowel sound MUSCULOSKELETAL: No obvious joint deformity, upper extremities strength seems adequate. SKIN:No rash, no evidence of erythema nodosum or multiforme. Arms expose area and dorsal hand with few small hematomas LYMPHATIC:No Cervical adenopathy. No supraclavicular adenopathy. NEUROLOGIC:Mental status is normal, no gross cranial nerve deficit, gross normal motor function Data 12/05/23 04:21 12/05/23 04:21 Micro: Microbiology 12/04/23 10:36 Blood Culture - Preliminary Blood SPECIMEN COLLECTED 12/04/23 10:31 Blood Culture - Preliminary Blood SPECIMEN COLLECTED CXR: My impression: As mentioned yesterday I personally reviewed and independent interpretation performed . Initial Chest Ct with a R side small - moderate Ptx Follow Chest X ray with stability slight improvement Other data: * PULMONARY DATA PFT 08/28/23 FEV1/FVC 75 - FEV1 49% (1.45 L)- FVC 51% ( 1.92 L) - RCF50-19% 67%- TLC 82% - RV109% - RV/TLC 128% - ERV 57% Test did not meet ATS criteria for bronchodilator testing however significant improvment at the small airways level, * RADIOLOGICAL DATA 06/27/22 LDCT LUNG CANCER SCREENING No nodules or endobronchial lesions are identified Hyperinflated lungs with emphysema. There is mild bilateral bronchial wall thickening. 02/02/[address] W/O CONTRAST Patchy airspace opacification at the lung bases right > than left. Minimal subsegmental atelectasis vs post inflammatory reticulonodular scarring. Minimal parenchymal bleb. GGO nodular with a bandlike at the RML Right trace pleural effusion 12/04/[address] Small to moderate Right side PTx Small R side pleural effusion. Rihgt ML atelectasis * CARDIOLOGY DATA 12/10/22 ECHO Normal left ventricular size, systolic function and wall thickness, with no regional wall motion abnormalities. Left ventricular ejection fraction is estimated at 65 %. Grade II diastolic dysfunction, moderately elevated filling pressures. Dilated IVC with normal respiratory variation. A&P Assessment and plan (1) Acute on chronic hypoxic respiratory failure: (2) Recurrent spontaneous pneumothorax: (3) Chronic atelectasis: (4) Restrictive lung disease: (5) COPD (chronic obstructive pulmonary disease): Qualifiers: COPD type: chronic bronchitis Chronic bronchitis type: mucopurulent Qualified Code(s): J41.1 - Mucopurulent chronic bronchitis (6) Atrial fibrillation: Qualifiers: Atrial fibrillation type: paroxysmal Qualified Code(s): I48.0 - Paroxysmal atrial fibrillation (7) Diastolic heart failure: Qualifiers: Heart failure chronicity: chronic Qualified Code(s): I50.32 - Chronic diastolic (congestive) heart failure (8) Antiphospholipid antibody positive: (9) Positive AMI (antinuclear antibody): (10) SS-A antibody positive: (11) JOSE MARIA (obstructive sleep apnea): (12) Tobacco dependence: Plan 1. ACUTE ON CHRONIC RESPIRATORY FAILURE Most likely multifactorial in etiology. Associates conditions include but not limited to patient age, body habitus, deconditioning, progressive restrictive lung disease, copd, diastolic dysfunction however mainly for development of recurrent Right side Pneumothorax. Therapy should be guided to underlying condition. 2. RECURRENT SPONTANEOUS PNEUMOTHORAX Pt claims prior PTX 4 or 5 years ago. She was transfer to [facility] and chest Tube was placed. She states that CT remained in place for > 5 days . This new spontaneous PTx is considered a RECURRENT event. Base in pt already chronic hypoxemia, restrictive lung disease, COPD / emphysema with FEV 1 < 50% , questionable development of ILD, JOSE MARIA on CPAP will benefit of evacuation of air and attempt of chemical pleurodesis before removal of chest tube, otherwise she will require prolong hospitalization, will prevent her from wearing her CPAP for a prolong time and she is a higher risk for relapsing event. I discussed with nursing at bedside and the kit is available the issue is [facility] my service in this institution is limited and nobody to follow up on the chest tube or perfom a simple bedside pleurodesis after my departure. I will discuss with attending physician other alternative sources available to proceed in the best interest of this patient recovery. At this time I am waiting for her follow up chest X ray that is pending. 3. CHRONIC ATELECTASIS Most likely as a result of prior chest tube as is a band like atelectasis 4. RESTRICTIVE LUNG DISEASE 5. COPD As PFt she has moderate restriction pattern as result of questionable underlying ILD and related to her weight in addition of radiologic findings and evidence of air trapping. FEV1/FVC 75 - FEV1 49% (1.45 L)- FVC 51% ( 1.92 L) - ZRA16-12% 67%- TLC 82% - RV109% - RV/TLC 128% - ERV 57% She is follow as out pt by pulmonary and based in new serology report she requires further wok up. She must remians on combine therapy of LABA/ICS/ LAMA and PRN KATHERINE. 6. AF 7. CHRONIC DIASTOLIC HEART FAILURE Normal EF - Diastolic in etiology . Seems stable. Avoid overuse of bronchodilators. Avoid fluid overload. 8. ANTIPHOSPHOLIPID AB + 9. AMI POSITIVE 10. SS-A AB POSITIVE Pt with a dx of Sjogreens and serology + for high risk of thromboembolic defect. As she has her OAC placed on hold may need initiate full A/C or partial as soon decision of chest tube intervention. 11. JOSE MARIA She has severe JOSE MARIA. She is very complain with her device. She is already sleepy this morning. In addition she takes Modafinil for residual sleepinees despite CPAP. COnsider to re-start Modafinil or Novigil. 12. TOBACOC DEPENDENCY 75 pack year hx of tobacco use with current smoking between 2-3 PPD Pt was again counseled regarding needs of smoking cessation. CLaims that tried everything on the market. SHe agreed with NRT and nicotine patch order was placed yesterday. Time spent speaking with the patient for this visit was about 40 minutes Reviewed old medical records and summarized as above Reviewed medications in detail and reconciled as necessary Reviewed the labs in detail with the patient Coding Level of Care Code 11730 Diagnoses Acute on chronic hypoxic respiratory failure J96.21 Recurrent spontaneous pneumothorax J93.83 Chronic atelectasis J98.11 Restrictive lung disease J98.4 Mucopurulent chronic bronchitis J41.1 COPD type: chronic bronchitis Chronic bronchitis type: mucopurulent Paroxysmal atrial fibrillation I48.0 Atrial fibrillation type: paroxysmal Chronic diastolic heart failure I50.32 Heart failure chronicity: chronic Antiphospholipid antibody positive R76.0 Positive AMI (antinuclear antibody) R76.8 SS-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
[2023-12-05] MEDS: budesonide 0.5 mg/2 mL Neb INHALATION (07:37)
[2023-12-05] MEDS: sertraline 100 mg Tablet 150 MG PO (08:24)
[2023-12-05] MEDS: nicotine 21 mg Patch 1 PATCH TRANSDERMA (08:25)
[2023-12-05] MEDS: gabapentin 300 mg Capsule 600 MG PO (08:25)
[2023-12-05] MEDS: ARIPiprazole 10 mg Tablet 20 MG PO (08:39)
[2023-12-05] MEDS: insulin lispro 100 unit/1 mL SUBCUT ×2 (08:39→12:33)
[2023-12-05 08:43] LABS: Glucose Point of Care 274 mg/dL (70-110)
--- NOTE | 2023-12-05 10:38 | P.PN_ITS ---
Subjective 2 Subjective: Patient was seen this morning,She is sitting up to the side of the bed, complaining of shortness of breath and wheezing, on 2 L no evidence of respiratory distress, does report a cough -Spoke to pulmonary, concern is patient has interstitial lung disease, severe COPD, uses CPAP at night, this is her second pneumothorax, she she is going to need a pleurodesis -Unfortunately as pulmonary is only low comes here at [facility], she will be available, for management during pleurodesis and after pleurodesis, -Discussed with pulmonary about transfer ring patient to tertiary level center for chest tube placement and pleurodesis -Pulmonary did offer that we could do ch est tube placement here, and transfer for pleurodesis depending on what [facility] would want -But currently no urgent need for chest tube placement as patient is not in respiratory distress and chest x-ray showing improving pneumothorax -Spoke to [facility] transfer line -Spoke to [facility], discussed c oncerns about patient's above conditions, second recurrent pneumothorax and need for pleurodesis, discussed placing chest tube here versus placing chest tube at [facility], and then having them do the pleurodesis, they had spoken to their pulmonary group, covering nurse practitioner and they advised that they can take care of everything there including chest tube placement -Currently patient is hemodynamically st able, on 2 L, no evidence of respiratory distress, she is stable for transfer chest x-ray this morning shows improving pneumothorax has not been on positive pressure ventilation but will continue to monitor closely -Patient has been accepted at [facility] for transfer, transfer initiated -I had a lengthy discussion with patient about her transfer, she is being at [facility] she tells me for 5 years ago for her first pneumothorax requiring chest tube placement, discussed risk and benefits of transfer, she voiced understanding, all questions answered, shared decision making, agreed to be transferred to [facility] for consideration of pleurodesis, chest tube placement -Spoke to nursing staff, spoke to pulmon ologist Vitals/I&O/Wt Last Vital Signs Temp 97.0 F L 12/05/23 08:25 Pulse 63 12/05/23 08:25 Resp 19 H 12/05/23 08:10 BP 133/60 12/05/23 08:25 Pulse Ox 94 12/05/23 08:25 O2 Del Method Nasal Cannula 12/05/23 08:25 O2 Flow Rate 2 12/05/23 08:25 12/04/23 12/05/23 12/05/23 22:59 06:59 14:59 Intake Total 1000 / 1150 221.1 / 1371.1 500 / 500 Output Total 975 / 975 Balance 1000 / 1150 -753.9 / 396.1 500 / 500 Weight last 48 hrs Weight 128.457 kg Weight 130.499 kg Weight 131.542 kg Physical Exam 2 Const: COMMON NORMALS: no acute distress and patient oriented x3 Resp: COMMON NORMALS: normal respiratory effort, No retractions and No use of accessory muscles AUSCULTATION: wheezes Cardio: COMMON NORMALS: regular rate, regular rhythm, S1 normal heart sound present and S2 normal heart sound present RATE: regular rate RHYTHM: r egular rhythm HEART SOUNDS: S1 normal heart sound present and S2 normal heart sound present GI: COMMON NORMALS: Normal to inspection, nondistended, normoactive bowel sounds present and non-tender Extremity: COMMON NORMALS: no pedal edema Neuro: COMMON NORMALS: patient oriented x3 Psych: COMMON NORMALS: mental status grossly normal Data 12/05/23 04:21 12/05/23 04:21 Micro: Microbiology 12/04/23 10:36 Blood Culture - Preliminary Blood SPECIMEN COLLECTED 12/04/23 10:31 Blood Culture - Preliminary Blood SPECIMEN COLLECTED A&P Assessment and plan (1) Acute hypoxic respiratory failure: (2) COPD exacerbation: (3) Pneumothorax on right: (4) CHF exacerbation: Plan acute hypoxic respiratory failure ? Multifactorial 1. Small to moderate RIGHT pneumothorax, estimated at 20%. No tension pneumothorax. 2. Small RIGHT pleural effusion. 3. Consolidation in the anterior RIGHT middle lobe is probably an area of atelectasis. This can be further evaluated after treatment for the pneumothorax. 4. Stable LEFT adrenal adenoma. 5. Mild pulmonary hypertension. ? Right pneumothorax, chest x-ray this morning shows improving right pneumothorax, due to history of interstitial lung disease, severe COPD, second recurrent pneumothorax, pulmonology has recommended pleurodesis, with chest tube placement, spoke to [facility], will transfer for pleurodesis and chest tube placement as above COPD exacerbation ? Fluid overload, CHF exacerbation, hold off on Lasix today looks euvolemic ? Plan ? Monitor in ICU closely ? Serial chest x-rays ? Avoid positive pressure ventilation ? Continue Solu-Medrol 40 mg IV every 8 hours ? Continue DuoNeb ? Right middle lobe atelectasis, once clinically stable, will likely need outpatient bronchoscopy ? Full code ? Hold Xarelto for DVT prophylaxis, as there is plans on chest tube placement and possible pleurodesis Atrial fibrillation ? Monitor heart rate closely Hold Xarelto History of COPD History of sleep apnea, hold CPAP for tonight Type 2 diabetes mellitus, low-dose sliding scale Patient was seen this morning,She is sitting up to the side of the bed, complaining of shortness of breath and wheezing, on 2 L no evidence of respiratory distress, does report a cough -Spoke to pulmonary, concern is patient has interstitial lung disease, severe COPD, uses CPAP at night, this is her second pneumothorax, she she is going to need a pleurodesis -Unfortunately as pulmonary is only low comes here at [facility], she will be available, for management during pleurodesis and after pleurodesis, -Discussed with pulmonary about transferring patient to tertiary level center for chest tube placement and pleurodesis -Pulmonary did offer that we could do chest tube placement here, and transfer for pleurodesis depending on what [facility] would want -But currently no urgent need for chest tube placement as patient is not in respiratory distress and chest x-ray showing improving pneumothorax -Spoke to [facility] transfer line -Spoke to [facility], discussed concerns about patient's above conditions, second recurrent pneumothorax and need for pleurodesis, discussed placing chest tube here versus placing chest tube at [facility], and then having them do the pleurodesis, they had spoken to their pulmonary group, covering nurse practitioner and they advised that they can take care of everything there including chest tube placement -Currently patient is hemodynamically stable, on 2 L, no evidence of respiratory distress, she is stable for transfer chest x-ray this morning shows improving pneumothorax has not been on positive pressure ventilation but will continue to monitor closely -Patient has been accepted at [facility] for transfer, transfer initiated -I had a lengthy discussion with patient about her transfer, she is being at [facility] she tells me for 5 years ago for her first pneumothorax requiring chest tube placement, discussed risk and benefits of transfer, she voiced understanding, all questions answered, shared decision making, agreed to be transferred to [facility] for consideration of pleurodesis, chest tube placement -Spoke to nursing staff, spoke to licensing registration examiner Attestations 2 Medical Necessity Statement*: Patient requires transfer to [facility] for pleurodesis chest tube placement Diagnoses Acute hypoxic respiratory failure J96.01 COPD exacerbation J44.1 Pneumothorax on right J93.9 CHF exacerbation I50.9
--- NOTE | 2023-12-05 10:40 | PM.TDS ---
Transfer Summary Providers Date of Admission: 12/04/23 14:44 Date of Discharge/Transfer: 12/05/23 Attending Provider at Admission: Blayne Cuevas MD Attending Provider at Transfer: Blayne Cuevas MD Primary Care Provider: LILLIE Pleitez Transfer Plans: Anticipated date of transfer: 12/05/23. Diagnoses at Discharge Discharge Diagnosis (1) Acute on chronic hypoxic respiratory failure: Status: Acute (2) Recurrent spontaneous pneumothorax: Status: Acute (3) Chronic atelectasis: Status: Acute (4) Restrictive lung disease: Status: Acute (5) COPD (chronic obstructive pulmonary disease): Status: Chronic Qualifiers: COPD type: chronic bronchitis Chronic bronchitis type: mucopurulent Qualified Code(s): J41.1 - Mucopurulent chronic bronchitis (6) Atrial fibrillation: Status: Acute Qualifiers: Atrial fibrillation type: paroxysmal Qualified Code(s): I48.0 - Paroxysmal atrial fibrillation (7) Diastolic heart failure: Status: Acute Qualifiers: Heart failure chronicity: chronic Qualified Code(s): I50.32 - Chronic diastolic (congestive) heart failure (8) Antiphospholipid antibody positive: Status: Acute (9) Positive AMI (antinuclear antibody): Status: Acute (10) SS-A antibody positive: Status: Acute (11) JOSE MARIA (obstructive sleep apnea): Status: Acute (12) Tobacco dependence: Status: Acute Reason for Visit Reason for Visit sob Hospital Course Hospital Course Alissa Beck is a 63 year old female with a past medical history of COPD, ILD, hx of Sjorgens, ,restrictive lung disease, atrial fibrillation on Xarelto, history of sleep apnea, CHF, type 2 diabetes mellitus, obesity, current smoker, 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 Patient tells me that for the last few days she has had increased shortness of breath, increased lower extremity edema, with right-sided chest pain, no fevers, does have a cough, nonproductive, no hemoptysis, no lightheadedness, no dizziness Patient was admitted to [facility] for shortness of breath, secondary to right pneumothorax, recurrent pneumothorax, COPD exacerbation, CHF. Pulmonary was consulted. She received steroid therapy, received diuresis. Chest x-ray showing improving pneumothorax. Due to patient's COPD, interstitial lung disease, restrictive lung disease, history of recurrent pneumothorax, pulmonary recommended patient to be transferred to tertiary level center for pleurodesis, due to limited availability of pulmonary service, no CT surgery service here at [facility]. Pulmonary service did offer chest tube placement however it certainly can be placed by [facility] pulmonary depending on their preference. I spoke to [facility], patient will be transferred for pleurodesis, [facility] pulmonary and hospitalist stated that they will place chest tube. Currently patient stable, alert oriented x 3, following all commands, on 2 L, no evidence of respiratory distress, does scattered wheezing in all lung meneses, does report shortness of breath, chest x-ray showing improving pneumothorax, stable for transfer. Physical Exam Const: COMMON NORMALS: no acute distress and patient oriented x3 Resp: COMMON NORMALS: normal respiratory effort, No retractions and No use of accessory muscles AUSCULTATION: crackles and wheezes Cardio: COMMON NORMALS: regular rate, regular rhythm, S1 normal heart sound present and S2 normal heart sound present RATE: regular rate RHYTHM: regular rhythm HEART SOUNDS: S1 normal heart sound present and S2 normal heart sound present GI: COMMON NORMALS: Normal to inspection, nondistended, normoactive bowel sounds present and non-tender Extremity: COMMON NORMALS: no pedal edema Neuro: COMMON NORMALS: patient oriented x3 Psych: COMMON NORMALS: mental status grossly normal TS Data Studies Completed and Pending Pending at discharge Category Date Time Status XR chest 1V portable [id number] Routine Exams 12/05/23 07:00 Ordered Blood Culture Stat Lab 12/04/23 10:36 Results Complete Blood Count w/Auto AM LABS Lab 12/06/23 04:00 Ordered Complete Blood Count w/Auto AM LABS Lab 12/07/23 04:00 Ordered Comprehensive Metabolic Panel AM LABS Lab 12/06/23 04:00 Ordered Comprehensive Metabolic Panel AM LABS Lab 12/07/23 04:00 Ordered Completed Studies During Hospitalization Category Date Time Status CT chest wo con [id number] Stat Cat Scan 12/04/23 11:28 Completed XR chest 1V portable [id number] Routine Exams 12/04/23 18:00 Completed XR chest 1V portable [id number] Stat Exams 12/04/23 10:00 Completed XR chest 1V portable [id number] Stat Exams 12/04/23 18:00 Completed XR chest 1V portable [id number] Urgent Exams 12/05/23 06:11 Completed Laboratory Last Values WBC 12.67 10^3/uL (3.29-11.43) H 12/05/23 04:21 RBC 4.42 10^6/uL (3.85-5.65) 12/05/23 04:21 Hgb 12.50 g/dL (11.27-16.99) 12/05/23 04:21 Hct 38.4 % (36-47) 12/05/23 04:21 MCV 86.9 fl (85-98) 12/05/23 04:21 MCH 28.3 pg (27-33) 12/05/23 04:21 MCHC 32.6 g/dL (30-55) 12/05/23 04:21 RDW 13.2 % (12.1-15.1) 12/05/23 04:21 Plt Count 231 10^3/cmm (157-399) 12/05/23 04:21 MPV 9.8 fL (7.4-10.4) 12/05/23 04:21 Neut % (Auto) 86.1 % 12/05/23 04:21 Lymph % (Auto) 6.9 % 12/05/23 04:21 [place] % (Auto) 5.9 % 12/05/23 04:21 Eos % (Auto) 0.3 % 12/05/23 04:21 Baso % (Auto) 0.2 % 12/05/23 04:21 Neut # (Auto) 10.92 10^3/uL (1.8-7.7) H 12/05/23 04:21 Lymph # (Auto) 0.9 10^3/uL (0.8-4.8) 12/05/23 04:21 [place] # (Auto) 0.8 10^3/uL (0.2-0.9) 12/05/23 04:21 Eos # (Auto) 0.0 10^3/uL (0.0-0.8) 12/05/23 04:21 Baso # (Auto) 0.0 10^3/uL (0.0-0.1) 12/05/23 04:21 Nucleated RBC % (auto) 0 % 12/05/23 04:21 Nucleated RBCs # 0.0 /100WBC 12/05/23 04:21 PT 14.40 SECONDS (12.1-14.9) 12/04/23 10:31 INR 1.08 (0.8-1.2) 12/04/23 10:31 APTT 35.1 SECONDS (23.9-36.7) 12/04/23 10:31 Specimen Type Arterial 12/04/23 10:02 Sample Site Radial, left 12/04/23 10:02 ABG pH 7.38 (7.35-7.45) 12/04/23 10:02 ABG pCO2 46.4 mmHg (35-45) H 12/04/23 10:02 ABG pO2 68.7 mmHg (80.0-100.0) L 12/04/23 10:02 ABG PO2/FiO2 Ratio 190 12/04/23 10:02 ABG HCO3 27.3 mmol/L (22-26) H 12/04/23 10:02 ABG O2 Saturation 94.3 12/04/23 10:02 ABG Base Excess 1.5 mmol/L (-2.0-2.0) 12/04/23 10:02 Vish Test Pos 12/04/23 10:02 A-a O2 Gradient 17.2 mmHg (5-10) H 12/04/23 10:02 Hematocrit 43.8 % (37-47) 12/04/23 10:02 Hgb O2 Saturation 89.1 % (95-100) L 12/04/23 10:02 Carboxyhemoglobin 4.5 %THgb (0.4-20.1) 12/04/23 10:02 Methemoglobin 1.1 % (0.4-1.5) 12/04/23 10:02 Total Hemoglobin 14.3 g/dL (12-16) 12/04/23 10:02 Sodium 137.0 mmol/L (131-143) 12/04/23 10:02 Potassium 4.3 mmol/L (3.5-5.0) 12/04/23 10:02 Glucose 350.0 mg/dL (70-115) H 12/04/23 10:02 Ionized Calcium 1.3 mmol/L (1.1-1.4) 12/04/23 10:02 O2 Delivery Device Nc 12/04/23 10:02 O2 Liters/Min 4.0 % 12/04/23 10:02 FiO2 36.0 % 12/04/23 10:02 Ophthalmic Lens Inspector ID Cak 12/04/23 10:02 Sodium 136 mmol/L (136-145) 12/05/23 04:21 Potassium 4.7 mmol/L (3.5-5.1) 12/05/23 04:21 Chloride 99 mmol/L (98-107) 12/05/23 04:21 Carbon Dioxide 25 mmol/L (22-29) 12/05/23 04:21 Anion Gap 16.7 (5-19) 12/05/23 04:21 BUN 28 mg/dL (8-23) H 12/05/23 04:21 Creatinine 0.9 mg/dL (0.5-0.9) 12/05/23 04:21 GFR Calculation 63.2 mL/min (90-130) L 12/05/23 04:21 Glucose 248 mg/dL (65-115) H 12/05/23 04:21 POC Glucose 274 mg/dL (70-110) H 12/05/23 08:24 Estimat Average Glucose 240 12/05/23 04:21 Hemoglobin A1c 10.0 % (4.0-6.0) H 12/05/23 04:21 Calculated Osmolality 296 mOsm/kg (285-295) H 12/05/23 04:21 Lactic Acid 1.4 mmol/L (0.5-2.2) 12/04/23 10:31 Calcium 9.2 mg/dL (8.5-10.5) 12/05/23 04:21 Magnesium 1.6 mg/dL (1.7-2.3) L 12/04/23 10:31 Total Bilirubin 0.2 mg/dL (0.15-1.2) 12/05/23 04:21 AST 7 U/L (0-32) 12/05/23 04:21 ALT 11 U/L (0-33) 12/05/23 04:21 Alkaline Phosphatase 85 U/L (35-105) 12/05/23 04:21 Troponin T Baseline 33 ng/L (0-10) H 12/04/23 10:31 Troponin T 120 Minute 33.92 ng/L (0-10) H 12/04/23 12:35 Delta Troponin T 0.92 ABS# (0-10) 12/04/23 12:35 Troponin T Hi Sens 6Hr 28.05 ng/L (0-10) H 12/04/23 16:08 Troponin T Hi Sens 6Hr Delta -4.95 ng/L (0-12) L 12/04/23 16:08 C-Reactive Protein 9.0 mg/L (0.0-4.9) H 12/04/23 10:31 NT-Pro-B Natriuret Pep 888 pg/mL (0-125) H 12/05/23 04:21 Total Protein 6.8 g/dL (6.6-8.7) 12/05/23 04:21 Albumin 3.9 g/dL (3.5-5.2) 12/05/23 04:21 Globulin 2.9 g/dL (1.3-4.6) 12/05/23 04:21 Triglycerides 100 mg/dL (0-150) 12/05/23 04:21 Cholesterol 129 mg/dL (0-200) 12/05/23 04:21 LDL Cholesterol, Calc 57 mg/dL (50-129) 12/05/23 04:21 HDL Cholesterol 52 mg/dL (60-100) L 12/05/23 04:21 LDL/HDL Ratio 1.10 RATIO (0.00-3.22) 12/05/23 04:21 Cholesterol/HDL Ratio 2.48 mg/dL (0.0-4.40) 12/05/23 04:21 Procalcitonin 0.04 ng/mL (0-0.5) 12/04/23 10:31 TSH 0.62 uIU/mL (0.27-4.20) 12/05/23 04:21 Urine Color Yellow (Yellow) 12/04/23 21:37 Urine Appearance Clear (CLEAR) 12/04/23 21:37 Urine pH 5 (5-7) 12/04/23 21:37 Ur Specific [place] 1.005 (1.005-1.030) 12/04/23 21:37 Urine Protein Neg (Negative) 12/04/23 21:37 Urine Glucose (UA) 4+ (Normal) H 12/04/23 21:37 Urine Ketones Negative (Negative) 12/04/23 21:37 Urine Blood Neg (Negative) 12/04/23 21:37 Urine Nitrate Negative (Negative) 12/04/23 21:37 Urine Bilirubin Neg (Negative) 12/04/23 21:37 Urine Urobilinogen Neg mg/dL (Negative) 12/04/23 21:37 Ur Leukocyte Esterase Negative (Negative) 12/04/23 21:37 Urine RBC Rare /hpf (0-2) 12/04/23 10:46 Urine WBC None /hpf (0-5) 12/04/23 10:46 Ur Squamous Epith Cells 0-4 /hpf (0-5) H 12/04/23 10:46 Amorphous Sediment Not Reportable 12/04/23 10:46 Urine Bacteria Trace /hpf (NONE) 12/04/23 10:46 Urine Mucus None /hpf 12/04/23 10:46 Adenovirus (PCR) Not detected (NOT DETECT) 12/04/23 10:29 C. pneumoniae DNA (PCR) Not detected (NOT DETECT) 12/04/23 10:29 Coronavirus 229E (PCR) Not detected (NOT DETECT) 12/04/23 10:29 Human Metapneumovir PCR Not detected (NOT DETECT) 12/04/23 10:29 Influenza A (H1) PCR Not detected (NOT DETECT) 12/04/23 10:29 Influ A (H1/09) PCR Not detected (NOT DETECT) 12/04/23 10:29 Influenza A (H3) PCR Not detected (NOT DETECT) 12/04/23 10:29 Influenza Type A (PCR) Not detected (NOT DETECT) 12/04/23 10:29 Influenza Type B (PCR) Not detected (NOT DETECT) 12/04/23 10:29 M. pneumoniae (PCR) Not detected (NOT DETECT) 12/04/23 10:29 Parainfluenza 1 (PCR) Not detected (NOT DETECT) 12/04/23 10:29 Parainfluenza 2 (PCR) Not detected (NOT DETECT) 12/04/23 10:29 Parainfluenza 3 (PCR) Not detected (NOT DETECT) 12/04/23 10:29 Parainfluenza 4 (PCR) Not detected (NOT DETECT) 12/04/23 10:29 RSV Type A (PCR) Not detected (NOT DETECT) 12/04/23 10:29 RSV Type B (PCR) Not detected (NOT DETECT) 12/04/23 10:29 Entero/Rhino (PCR) Not detected (NOT DETECT) 12/04/23 10:29 SARS-CoV-2 (PCR) Not detected (NOT DETECT) 12/04/23 10:[address] 12/04/23 11:28 IMPRESSION: 1. Small to moderate RIGHT pneumothorax, estimated at 20%. No tension pneumothorax. 2. Small RIGHT pleural effusion. 3. Consolidation in the anterior RIGHT middle lobe is probably an area of atelectasis. This can be further evaluated after treatment for the pneumothorax. 4. Stable LEFT adrenal adenoma. 5. Mild pulmonary hypertension. Chest X-Ray 12/05/23 06:11 IMPRESSION: Continued resolving of the right pneumothorax as above. Recent Clincial Data Last Vital Signs Temp 97.0 F L 12/05/23 08:25 Pulse 63 12/05/23 08:25 Resp 19 H 12/05/23 08:10 BP 133/60 12/05/23 08:25 Pulse Ox 94 12/05/23 08:25 O2 Del Method Nasal Cannula 12/05/23 08:25 O2 Flow Rate 2 12/05/23 08:25 Vital Signs Temp Pulse Resp BP Pulse Ox O2 Del Method O2 Flow Rate 12/05/23 08:25 97.0 F L 63 133/60 94 Nasal Cannula 2 12/05/23 08:20 78 133/60 94 12/05/23 08:15 63 133/60 94 12/05/23 08:10 56 L 19 H 133/60 94 12/05/23 08:05 67 18 133/60 95 12/05/23 08:00 54 L 16 141/61 94 12/05/23 07:55 50 L 14 141/61 95 12/05/23 07:50 48 L 141/61 94 12/05/23 07:45 47 L 11 L 141/61 95 12/05/23 07:40 47 L 12 141/61 96 12/05/23 07:38 55 L 18 95 Nasal Cannula 3 12/05/23 07:35 46 L 9 L 141/61 95 12/05/23 07:30 46 L 14 127/60 95 12/05/23 07:25 45 L 14 127/60 98 12/05/23 07:20 45 L 16 127/60 97 07/25/24 07:15 49 L 18 127/60 96 12/05/23 07:10 48 L 16 127/60 95 12/05/23 07:05 70 16 127/60 99 12/05/23 07:00 49 L 13 140/61 97 12/05/23 06:55 48 L 18 140/61 97 12/05/23 06:50 49 L 13 140/61 96 12/05/23 06:45 48 L 15 140/61 96 12/05/23 06:40 45 L 17 140/61 96 12/05/23 06:35 46 L 13 140/61 95 12/05/23 06:30 52 L 17 124/80 96 12/05/23 06:25 49 L 13 124/80 98 12/05/23 06:20 47 L 17 124/80 96 12/05/23 06:15 47 L 16 124/80 95 12/05/23 06:10 56 L 21 H 124/80 94 12/05/23 06:05 43 L 19 H 124/80 91 12/05/23 06:00 52 L 15 96 12/05/23 05:55 52 L 14 97 12/05/23 05:51 53 L 12/05/23 05:50 67 18 97 12/05/23 05:47 60 21 H 92 12/05/23 05:35 49 L 19 H 98 12/05/23 05:30 48 L 15 122/57 97 12/05/23 05:25 55 L 16 122/57 95 12/05/23 05:20 51 L 21 H 122/57 96 12/05/23 05:15 54 L 18 122/57 95 12/05/23 05:10 58 L 19 H 122/57 96 12/05/23 05:05 67 15 122/57 12/05/23 05:00 47 L 15 109/57 95 12/05/23 04:55 58 L 29 H 109/57 95 12/05/23 04:50 69 20 H 109/57 94 12/05/23 04:45 48 L 19 H 109/57 99 12/05/23 04:40 53 L 15 109/57 99 12/05/23 04:35 48 L 14 109/57 99 12/05/23 04:30 50 L 15 113/47 99 12/05/23 04:25 48 L 24 H 113/47 99 12/05/23 04:20 51 L 16 113/47 99 12/05/23 04:15 48 L 16 113/47 99 12/05/23 03:24 62 15 116/61 97 Nasal Cannula 4 12/05/23 01:56 61 18 97 Nasal Cannula 4 12/05/23 01:51 60 18 94 Nasal Cannula 4 12/05/23 00:01 55 L 14 127/56 93 Nasal Cannula 4 12/04/23 22:45 16 94 Intake & Output/Weight 12/03/23 12/04/23 12/05/23 12/06/23 06:59 06:59 06:59 06:59 Intake Total 1371.1 / 1371.1 500 / 500 Output Total 975 / 975 Balance 396.1 / 396.1 500 / 500 Weight 128.457 kg Vitals Last Vital Signs Temp 97.0 F L 12/05/23 08:25 Pulse 63 12/05/23 08:25 Resp 19 H 12/05/23 08:10 BP 133/60 12/05/23 08:25 Pulse Ox 94 12/05/23 08:25 O2 Del Method Nasal Cannula 12/05/23 08:25 O2 Flow Rate 2 12/05/23 08:25 TS Medications Medications Acetaminophen (Acetaminophen 325 Mg Tablet) 650 mg PO Q6H PRN PRN Reason: Mild/Mod Pain Or Temp >/= 101 Albuterol Sulfate (Albuterol 2.5 Mg/3 Ml Neb) 2.5 mg INHALATION Q6H PRN PRN Reason: Shortness Of Breath Or Wheezing Albuterol/Ipratropium (Ipratropium-Albuterol 3 Ml Neb) 3 ml INHALATION QID PRN PRN Reason: wheezing Albuterol/Ipratropium (Ipratropium-Albuterol 3 Ml Neb) 3 ml INHALATION Q6H.RESP MAXIMILIANO Last Admin: 12/05/23 07:37 Dose: 3 ml Aripiprazole (Aripiprazole 10 Mg Tablet) 20 mg PO DAILY MAXIMILIANO Last Admin: 12/05/23 08:39 Dose: 20 mg Atorvastatin Calcium (Atorvastatin 40 Mg Tablet) 40 mg PO BEDTIME MAXIMILIANO Last Admin: 12/04/23 20:30 Dose: 40 mg Budesonide (Budesonide 0.5 Mg/2 Ml Neb) 0.5 mg INHALATION BID.RESPIRATORY MAXIMILIANO Last Admin: 12/05/23 07:37 Dose: 0.5 mg Bupropion HCl (Bupropion Xl (24 Hr) 150 Mg Tablet) 300 mg PO QAM [facility] Last Admin: 12/05/23 06:04 Dose: 300 mg Clonazepam (Clonazepam 0.5 Mg Tablet) 0.5 mg PO TID PRN PRN Reason: severe anxiety Last Admin: 12/04/23 22:12 Dose: 0.5 mg Gabapentin (Gabapentin 300 Mg Capsule) 600 mg PO TID [facility] Last Admin: 12/05/23 08:25 Dose: 600 mg Glucagon (Glucagon 1 Mg/Ml Kit 1 Ml) 1 mg IM ONCE PRN; Protocol PRN Reason: Adult Acute Hypoglycemia Nursing Prot. Dextrose (D5w) 500 mls @ 0 mls/hr IV ONCE PRN; Protocol PRN Reason: Adult Acute Hypoglycemia Prot Dextrose (D10w) 125 mls @ 750 mls/hr IV PRN PRN; Protocol PRN Reason: Adult Acute Hypoglycemia Nursing Protocol Dextrose (D10w) 250 mls @ 1,000 mls/hr IV PRN PRN; Protocol PRN Reason: Adult Acute Hypoglycemia Nursing Protocol Insulin Human Lispro (Insulin Lispro 100 Unit/1 Ml) 0 unit SUBCUT WM&BEDTIME [facility]; Protocol Last Admin: 12/05/23 08:39 Dose: 10 unit Methylprednisolone Sodium Succinate (Methylprednisolone Sod Succ 40 Mg/Ml Inj) 40 mg IVP Q8H [facility] Last Admin: 12/05/23 06:04 Dose: 40 mg Morphine Sulfate (Morphine 4 Mg/Ml Sdv 1 Ml) 2 mg IVP Q4H PRN PRN Reason: SEVERE PAIN Last Admin: 12/04/23 22:45 Dose: 2 mg Naloxone HCl (Naloxone 0.4 Mg/Ml Sdv) 0.1 mg IVP Q2M PRN PRN Reason: OPIATERV Nicotine (Nicotine 21 Mg Patch) 1 patch TRANSDERMA DAILY [facility] Last Admin: 12/05/23 08:25 Dose: 1 patch Non-Formulary Medication (Modafinil) 200 mg PO QAM [facility] Ondansetron HCl (Ondansetron 2 Mg/Ml Sdv 2 Ml) 4 mg IVP Q8H PRN PRN Reason: vomiting, or N/V if npo Pantoprazole Sodium (Pantoprazole 40 Mg Sdv) 40 mg IVP Q24H [facility] Last Admin: 12/04/23 18:45 Dose: 40 mg Sertraline HCl (Sertraline 100 Mg Tablet) 150 mg PO DAILY [facility] Last Admin: 12/05/23 08:24 Dose: 150 mg Zolpidem Tartrate (Zolpidem 5 Mg Tablet) 5 mg PO BEDTIME PRN PRN Reason: sleep Discontinued Medications Hydrocodone Bitart/Acetaminophen (Hydrocodone-Acetaminophen 10-325 Mg Tablet) 1 tab PO ONCE ONE Stop: 12/04/23 17:46 Last Admin: 12/04/23 18:44 Dose: 1 tab Albuterol Sulfate (Albuterol 2.5 Mg/3 Ml Neb) 2.5 mg INHALATION ONCE ONE Stop: 12/04/23 11:30 Last Admin: 12/04/23 11:39 Dose: 2.5 mg Albuterol/Ipratropium (Ipratropium-Albuterol 3 Ml Neb) 3 ml INHALATION ONCE ONE Stop: 12/04/23 11:30 Last Admin: 12/04/23 11:39 Dose: 3 ml Furosemide (Furosemide 10 Mg/Ml Sdv 4ml) 40 mg IVP ONCE ONE Stop: 12/04/23 17:46 Last Admin: 12/04/23 18:44 Dose: 40 mg Levofloxacin/Dextrose (Levaquin-D5w) 750 mg in 150 mls @ 100 mls/hr IV ONCE ONE; Protocol Stop: 12/04/23 12:57 Last Infusion: 12/04/23 13:24 Dose: Infused Sodium Chloride (Sodium Chloride 0.9%) 1,000 mls @ 999 mls/hr IV .Q1H1M ONE Stop: 12/04/23 14:07 Last Infusion: 12/04/23 20:28 Dose: Infused Insulin Human Regular 10 unit/ (N/A) 0.1 mls @ 0 mls/hr IVP ONCE ONE Stop: 12/04/23 22:17 Last Infusion: 12/04/23 23:17 Dose: Infused Insulin Human Regular (Insulin Regular-Human 100 Units/1 Ml) 10 unit IVP ONCE ONE Stop: 12/04/23 13:08 Last Admin: 12/04/23 13:23 Dose: 10 unit Insulin Human Regular (Insulin Regular-Human 100 Units/1 Ml) 10 unit IVP ONCE ONE Stop: 12/04/23 21:05 Last Admin: 12/04/23 21:19 Dose: 10 unit Methylprednisolone Sodium Succinate (Methylprednisolone Sod Succ 125 Mg/2 Ml Inj) 125 mg IVP ONCE ONE Stop: 12/04/23 11:30 Last Admin: 12/04/23 11:42 Dose: 125 mg Allergies Sulfa (Sulfonamide Antibiotics) Allergy (Unknown, Verified 11/25/23 15:24) Unknown quinine [From Quine] Allergy (Verified 11/25/23 15:24) unknown ropinirole [From Requip] Allergy (Verified 11/25/23 15:24) Unknown Home Medications blood sugar diagnostic (Blood Glucose Test strips) #100 ea 06/30/19 [Rx Confirmed 12/04/23] blood-glucose meter (Blood Glucose Monitoring kit) #1 ea 01/22/20 [Rx Confirmed 12/04/23] flash glucose scanning reader (Starfish 360Style Jack 2 [place]) #1 ea 08/01/20 [Rx Confirmed 12/04/23] flash glucose sensor (FreeStyle Jack 2 Sensor kit) #2 ea 08/01/20 [Rx Confirmed 12/04/23] oxygen-air delivery systems 01/17/22 [History Confirmed 12/04/23] pen needle, diabetic 32 gauge x 5/32 (BD Ultra-Fine [place] Pen Needle) #100 ea 02/15/22 [Rx Confirmed 12/04/23] nitroglycerin 0.4 mg sublingual tablet (Nitrostat) 0.4 mg sublingual Q5M PRN chest pain #25 tabs 05/15/22 [Rx Confirmed 12/04/23] acetaminophen 325 mg tablet 325 mg PO QID PRN Pain 11/19/22 [History Confirmed 12/04/23] diphenhydramine HCl 25 mg tablet (Benadryl Allergy) 25 mg PO TID PRN Allergy Symptoms 11/19/22 [History Confirmed 12/04/23] ibuprofen 200 mg tablet 200 mg PO Q6H PRN Pain 11/19/22 [History Confirmed 12/04/23] lisinopril 40 mg tablet 40 mg PO DAILY #90 tabs 01/04/23 [Rx Confirmed 12/04/23] potassium chloride 20 mEq tablet,extended release 20 meq PO DAILY #90 tabs 01/04/23 [Rx Confirmed 12/04/23] rivaroxaban 20 mg tablet (Xarelto) 20 mg PO DAILY #90 tabs 01/04/23 [Rx Confirmed 12/04/23] spironolactone 50 mg tablet 50 mg PO DAILY #90 tabs 01/04/23 [Rx Confirmed 12/04/23] ipratropium 0.5 mg-albuterol 3 mg (2.5 mg base)/3 mL nebulization soln 3 ml inhalation QID PRN wheezing #180 mL 02/14/23 [Rx Confirmed 12/04/23] nebulizer and supplies #1 ea 02/14/23 [Rx Confirmed 12/04/23] afflovest #1 ea 02/26/23 [Rx Confirmed 12/04/23] furosemide 40 mg tablet 40 mg PO DAILY 04/10/23 [History Confirmed 12/04/23] back brace #1 ea 04/15/23 [Rx Confirmed 12/04/23] DC Home Health #1 ea 06/18/23 [Rx Confirmed 12/04/23] modafinil 200 mg tablet 200 mg PO QAM #30 tabs 07/22/23 [Rx Confirmed 12/04/23] aripiprazole 20 mg tablet (Abilify) 20 mg PO DAILY #30 tabs 07/24/23 [Rx Confirmed 12/04/23] bupropion HCl 300 mg 24 hr tablet, extended release (Wellbutrin XL) 300 mg PO QAM #30 tabs 07/24/23 [Rx Confirmed 12/04/23] fluticasone propionate 50 mcg/actuation nasal spray,suspension (Flonase Allergy Relief) 2 spray intranasal DAILY #16 grams 07/26/23 [Rx Confirmed 12/04/23] umeclidinium 62.5 mcg/actuation blister powder for inhalation (Incruse Ellipta) 1 inh inhalation DAILY #30 ea 08/01/23 [Rx Confirmed 12/04/23] CPAP (Standard Cpap) 08/07/23 [History Confirmed 12/04/23] hydroxychloroquine 200 mg tablet 200 mg PO BID #180 tabs 09/11/23 [Rx Confirmed 12/04/23] prednisone 5 mg tablet 5 mg PO DAILY #90 tabs 09/11/23 [Rx Confirmed 12/04/23] cholecalciferol (vitamin D3) 1,250 mcg (50,000 unit) capsule 1,250 mcg PO Q7D 10/15/23 [History Confirmed 12/04/23] gabapentin 600 mg tablet 600 mg PO TID 10/15/23 [History Confirmed 12/04/23] metformin 500 mg tablet,extended release 24 hr 500 mg PO BID 10/15/23 [History Confirmed 12/04/23] sertraline 100 mg tablet (Zoloft) 150 mg PO DAILY 10/15/23 [History Confirmed 12/04/23] ciprofloxacin HCl 0.3 % eye ointment (Ciloxan) See Rx Instructions ophthalmic (eye) .COMPLEX #3.5 grams 11/25/23 [Rx Confirmed 12/04/23] albuterol sulfate 2.5 mg/3 mL (0.083 %) solution for nebulization 2.5 mg inhalation Q6H PRN Shortness Of Breath Or Wheezing 12/04/23 [History Confirmed 12/04/23] albuterol sulfate 90 mcg/actuation aerosol inhaler 2 puff inhalation Q8H PRN Shortness Of Breath Or Wheezing 12/04/23 [History Confirmed 12/04/23] atorvastatin 20 mg tablet 20 mg PO BEDTIME 12/04/23 [History Confirmed 12/04/23] budesonide-formoterol HFA 160 mcg-4.5 mcg/actuation aerosol inhaler 2 puff inhalation BID 12/04/23 [History Confirmed 12/04/23] clonazepam 0.5 mg tablet 0.5 mg PO TID PRN severe anxiety 12/04/23 [History Confirmed 12/04/23] ipratropium 20 mcg-albuterol 100 mcg/actuation mist for inhalation (Combivent Respimat) 1 puff inhalation Q6H PRN Shortness Of Breath 12/04/23 [History Confirmed 12/04/23] zolpidem 5 mg tablet (Ambien) 5 mg PO BEDTIME PRN sleep 12/04/23 [History Confirmed 12/04/23] Discharge Plan Discharge Patient Disposition: Home Condition: Stable Prescriptions: No Action (DME) Blood Glucose Test Strip See Rx Instructions .ROUTE .MEDSUPPLY Qty: 100 1RF Rx Instructions: As directed (DME) oxygen-air delivery systems Device See Rx Instructions .Route Rx Instructions: As directed acetaminophen 325 mg tablet 325 mg PO QID PRN (Reason: Pain) diphenhydramine HCl [Benadryl Allergy] 25 mg tablet 25 mg PO TID PRN (Reason: Allergy Symptoms) ibuprofen 200 mg tablet 200 mg PO Q6H PRN (Reason: Pain) furosemide 40 mg tablet 40 mg PO DAILY ipratropium-albuterol 0.5 mg-3 mg(2.5 mg base)/3 mL solution for nebulization 3 ml inhalation QID PRN (Reason: wheezing) Qty: 180 2RF (DME) nebulizer and supplies See Rx Instructions .Route .MEDSUPPLY Qty: 1 0RF Rx Instructions: As directed (DME) back brace See Rx Instructions .Route .MEDSUPPLY Qty: 1 0RF Rx Instructions: As directed (DME) Standard Cpap Device See Rx Instructions .Route Rx Instructions: As directed fluticasone propionate [Flonase Allergy Relief] 50 mcg/actuation spray,suspension 2 spray intranasal DAILY Qty: 16 1RF Rx Instructions: administer into each nostril Ciloxan 0.3 % ointment See Rx Instructions ophthalmic (eye) .COMPLEX Qty: 3.5 0RF Rx Instructions: apply 1/2 inch ribbon into affected eye(s) 3 times daily for 2 days; then twice daily for 5 days ophthalmic (eye) nitroglycerin [Nitrostat] 0.4 mg tablet, sublingual 0.4 mg SUBLINGUAL Q5M PRN (Reason: chest pain) Qty: 25 3RF Rx Instructions: do not exceed 3 doses per episode (DME) pen needle, diabetic [BD Ultra-Fine Corine Pen Needle] 32 gauge x 5/32 needle See Rx Instructions .Route Qty: 100 3RF Rx Instructions: use as directed for insulin injections twice daily bupropion HCl [Wellbutrin XL] 300 mg tablet extended release 24 hr 300 mg PO QAM Qty: 30 2RF aripiprazole [Abilify] 20 mg tablet 20 mg PO DAILY Qty: 30 2RF prednisone 5 mg tablet 5 mg PO DAILY Qty: 90 1RF hydroxychloroquine 200 mg tablet 200 mg PO BID Qty: 180 1RF (DME) blood-glucose meter [Blood Glucose Monitoring] Kit See Rx Instructions .ROUTE .MEDSUPPLY Qty: 1 0RF Rx Instructions: As directed (DME) FreeStyle Jack 2 Sensor Kit See Rx Instructions .ROUTE .MEDSUPPLY Qty: 2 3RF Rx Instructions: pt having hypoglycemia (DME) FreeStyle Jack 2 [place] Misc See Rx Instructions .ROUTE .MEDSUPPLY Qty: 1 0RF Rx Instructions: As directed lisinopril 40 mg tablet 40 mg PO DAILY Qty: 90 3RF potassium chloride 20 mEq tablet extended release 20 meq PO DAILY Qty: 90 3RF Xarelto 20 mg tablet 20 mg PO DAILY Qty: 90 3RF spironolactone 50 mg tablet 50 mg PO DAILY Qty: 90 3RF (DME) afflovest See Rx Instructions .Route .MEDSUPPLY Qty: 1 0RF Rx Instructions: As directed (DME) [facility] See Rx Instructions .Route .MEDSUPPLY Qty: 1 0RF Rx Instructions: As directed modafinil 200 mg tablet 200 mg PO QAM Qty: 30 2RF Incruse Ellipta 62.5 mcg/actuation blister with device 1 inh inhalation DAILY Qty: 30 0RF gabapentin 600 mg tablet 600 mg PO TID sertraline [Zoloft] 100 mg tablet 150 mg PO DAILY metformin 500 mg tablet extended release 24 hr 500 mg PO BID cholecalciferol (vitamin D3) 1,250 mcg (50,000 unit) capsule 1,250 mcg PO Q7D Rx Instructions: FRIDAYS atorvastatin 20 mg tablet 20 mg PO BEDTIME albuterol sulfate 2.5 mg /3 mL (0.083 %) solution for nebulization 2.5 mg inhalation Q6H PRN (Reason: Shortness Of Breath Or Wheezing) Rx Instructions: Inhale 1 vial via nebulizer every 6 hours clonazepam 0.5 mg tablet 0.5 mg PO TID PRN (Reason: severe anxiety) Ambien 5 mg tablet 5 mg PO BEDTIME PRN (Reason: sleep) albuterol sulfate 90 mcg/actuation HFA aerosol inhaler 2 puff inhalation Q8H PRN (Reason: Shortness Of Breath Or Wheezing) Rx Instructions: INHALE 2 PUFFS BY MOUTH EVERY 8 HOURS NEEDED FOR SHORTNESS OF BREATH OR WHEEZING budesonide-formoterol 160-4.5 mcg/actuation HFA aerosol inhaler 2 puff inhalation BID Combivent Respimat 20-100 mcg/actuation mist 1 puff inhalation Q6H PRN (Reason: Shortness Of Breath) Discharge Orders: Discharge Order (Routine); Ordered 12/05/23 Ordered By: Blayne Cuevas Referrals: Marguerite Wade FNP [Primary Care Provider] - Patient Instructions: Opioid Safety Transfer Attestations Time Spent in Transfer Care: greater than 30 min Quality Metrics Clinical Quality Measures [ No reported AMI, CVA or VTE this stay] Coding Level of Care Code 16230 Total time (in minutes) for Discharge: 35 Diagnoses Acute on chronic hypoxic respiratory failure J96.21 Recurrent spontaneous pneumothorax J93.83 Chronic atelectasis J98.11 Restrictive lung disease J98.4 Mucopurulent chronic bronchitis J41.1 COPD type: chronic bronchitis Chronic bronchitis type: mucopurulent Paroxysmal atrial fibrillation I48.0 Atrial fibrillation type: paroxysmal Chronic diastolic heart failure I50.32 Heart failure chronicity: chronic Antiphospholipid antibody positive R76.0 Positive AMI (antinuclear antibody) R76.8 SS-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
[2023-12-05 11:12] LABS: Glucose Point of Care 467 mg/dL (70-110)
[2023-12-05] MEDS: CLONazepam 0.5 mg Tablet PO (13:29)
--- NOTE | 2023-12-05 13:33 | PC.NURSE ---
Transfer Note Patient transferred to [facility] 4C room 4221-bed 2 from [facility] ICU via [facility]. Handoff report given to KELSY Llanos. Patient oriented to environment and equipment. Covering service notified. Family notified. Upon transfer patient is alert/oriented x4 on 2LNC. All patient belongings taken with patient upon transfer.
== END 2023-12-05 13:32 | disposition short-term general hospital (02) | DRG 199 ==
LOC: ER 13:26 → ICU 14:45
PROVIDERS: Admitting Provider Family Medicine; Emergency Provider Emergency Medicine; PCP Nurse Practitioner Family; Visit Provider Family Medicine
DX: J93.83 Other pneumothorax (principal); I50.33 Acute on chronic diastolic (congestive) heart failure; J96.21 Acute and chronic respiratory failure with hypoxia; Z68.41 Body mass index [BMI] 40.0-44.9, adult; F31.81 Bipolar II disorder; Z11.52 Encounter for screening for COVID-19; J41.1 Mucopurulent chronic bronchitis; I48.0 Paroxysmal atrial fibrillation; Z79.01 Long term (current) use of anticoagulants; G47.33 Obstructive sleep apnea (adult) (pediatric); I11.0 Hypertensive heart disease with heart failure; E11.40 Type 2 diabetes mellitus with diabetic neuropathy, unspecified; E11.51 Type 2 diabetes mellitus with diabetic peripheral angiopathy without gangrene; E66.9 Obesity, unspecified; F17.210 Nicotine dependence, cigarettes, uncomplicated; G51.0 Bell's palsy; Z79.84 Long term (current) use of oral hypoglycemic drugs; Z87.01 Personal history of pneumonia (recurrent); Z87.440 Personal history of urinary (tract) infections; F43.12 Post-traumatic stress disorder, chronic; Z99.81 Dependence on supplemental oxygen; M35.00 Sjogren syndrome, unspecified; R76.0 Raised antibody titer
CPT/HCPCS: 36415; 36416; 36600; 71045; 71250; 80051; 80053; 80061; 81001; 81003; 82330; 82805; 82962; 83036; 83605; 83735; 83880; 84145; 84443; 84484; 85025; 85610; 85730; 86140; 87040; 87486; 87581; 87633; 93005; 94640; 94664; 96365; 96372; 96375; 96376; 99285; C9113; J1815; J1940; J1956; J2270; J2919; J7030; J7613; J7626

== ENCOUNTER → 2023-12-16 08:37 | Outpatient (BNVA) | payer MEDICARE, MEDICAID, SELFPAY ==
[2023-12-11 10:50] VITALS: BP 162/77; BMI 40.6
== END ==
PROVIDERS: PCP Nurse Practitioner Family; Visit Provider Internal Medicine
DX: E11.42 Type 2 diabetes mellitus with diabetic polyneuropathy; E11.65 Type 2 diabetes mellitus with hyperglycemia; E78.5 Hyperlipidemia, unspecified; I11.0 Hypertensive heart disease with heart failure; D35.02 Benign neoplasm of left adrenal gland; E04.1 Nontoxic single thyroid nodule; Z79.84 Long term (current) use of oral hypoglycemic drugs
CPT/HCPCS: 99214

== ENCOUNTER → 2023-12-18 10:41 | Outpatient (BNVA) | payer MEDICARE, MEDICAID, SELFPAY ==
[2023-12-11 10:50] VITALS: BP 162/77; BMI 40.6
== END ==
PROVIDERS: PCP Nurse Practitioner Family; Visit Provider Internal Medicine Rheumatology
DX: G58.7 Mononeuritis multiplex (principal); R76.8 Other specified abnormal immunological findings in serum; R29.898 Other symptoms and signs involving the musculoskeletal system; M35.00 Sjogren syndrome, unspecified
CPT/HCPCS: 99214

== ENCOUNTER → 2024-01-07 09:20 | Outpatient (BNVA) | payer MEDICARE, SELFPAY ==
[2023-12-11 10:50] VITALS: BP 162/77; BMI 40.6
== END ==
PROVIDERS: PCP Nurse Practitioner Family; Visit Provider Specialist
DX: G58.7 Mononeuritis multiplex (principal); G56.00 Carpal tunnel syndrome, unspecified upper limb; G56.23 Lesion of ulnar nerve, bilateral upper limbs; F17.218 Nicotine dependence, cigarettes, with other nicotine-induced disorders; F17.200 Nicotine dependence, unspecified, uncomplicated; G56.03 Carpal tunnel syndrome, bilateral upper limbs; Z71.6 Tobacco abuse counseling
CPT/HCPCS: 99214

== ENCOUNTER 2024-01-09 12:16 | Outpatient (CLI) | payer MEDICARE, SELFPAY ==
[2023-12-11 10:50] VITALS: BP 162/77; BMI 40.6
--- NOTE | 2024-01-09 12:30 | USR_ITS ---
PROCEDURE INFORMATION: Exam: US Soft Tissue Head and Neck, TI-RADS Exam date and time: 01/09/2024 12:36 PM Age: 63 years old Clinical indication: Condition or disease; Thyroid disorder; Other: Nontoxic single thyroid nodule; Additional info: E04.1 - nontoxic single thyroid nodule TECHNIQUE: Imaging protocol: Real-time ultrasound scan of the neck with image documentation. Exam focused on the thyroid. COMPARISON: 1. CT chest wo con [id number] 12/04/2023 12:15 PM 2. [place] thyroid [id number] 02/01/2021 2:22 PM FINDINGS: Right thyroid lobe: Measures 5.4 x 2.0 x 2.2 cm and shows single measured nodule. Left thyroid lobe: Similar heterogeneous enlargement 07/02/2020, but without discretely measurable nodule on today's exam, measuring 8.4 x 4.4 x 4.8 cm. Isthmus: Not thickened. LESION 1: Thyroid nodule 1 Size: 2.2 x 2.2 x 2.7 cm, previously 1.8 x 2.3 x 2.5 cm in 2020 Thyroid nodule 1 Location: Right lower pole Thyroid nodule 1 Composition: Mixed cystic and solid Thyroid nodule 1 Echogenicity: Hypoechoic Thyroid nodule 1 Shape: Not taller than wide Thyroid nodule 1 Margins: Smooth Thyroid nodule 1 Echogenic foci: None Thyroid nodule 1 Points: 3, TR 3 Lymph nodes: No enlarged nodes. US/US thyroid [id number] IMPRESSION: Allowing for differences in technique, grossly similar heterogeneous enlarged thyroid with 2.7 cm right TR 3 nodule. Per TI-RADS criteria, meets criteria for FNA if not previously performed.
== END 2024-01-09 12:17 | disposition home or self-care (01) ==
LOC: RAD 12:18
PROVIDERS: PCP Nurse Practitioner Family; Visit Provider Nurse Practitioner Family
DX: E04.1 Nontoxic single thyroid nodule (principal)
CPT/HCPCS: 76536

== ENCOUNTER 2024-01-30 06:00 | Outpatient (CLI) | payer MEDICARE, MEDICAID, SELFPAY ==
[2023-12-11 10:50] VITALS: BP 162/77; BMI 40.6
== END 2024-01-30 06:01 | disposition home or self-care (01) ==
LOC: RAD 02-14 09:08
PROVIDERS: PCP Nurse Practitioner Family; Visit Provider Nurse Practitioner Family
DX: R42 Dizziness and giddiness (principal); F17.200 Nicotine dependence, unspecified, uncomplicated
CPT/HCPCS: 82374

== ENCOUNTER → 2024-04-20 09:45 | Outpatient (BNVA) | payer MEDICARE, MEDICAID, SELFPAY ==
[2023-12-11 10:50] VITALS: BP 162/77; BMI 40.6
== END ==
PROVIDERS: PCP Nurse Practitioner Family; Visit Provider Nurse Practitioner Family
DX: R53.1 Weakness (principal); R35.0 Frequency of micturition
CPT/HCPCS: 81000; 82962

== ENCOUNTER 2024-06-02 18:30 | Inpatient (IN) | payer MEDICARE, MEDICAID, SELFPAY ==
[2023-12-11 10:50] VITALS: BP 162/77; BMI 40.6
[2024-06-02] VITALS (9 sets, daily range): BP systolic 118–148; BP diastolic 56–83; PULSE 69–81; RESP 18–22; TEMP 36.4; O2SAT 90–92
--- NOTE | 2024-06-02 19:22 | XRR_ITS ---
PROCEDURE INFORMATION: Exam: XR Chest Exam date and time: 06/02/2024 7:28 PM Age: 63 years old Clinical indication: Shortness of breath; Patient HX: H/o pneumothorax x3; Additional info: SOB TECHNIQUE: Imaging protocol: Radiologic exam of the chest. Views: 1 view. COMPARISON: CR XR chest 1V portable [id number] 12/04/2023 6:14 PM FINDINGS: Lungs: Opacities in the right apex, right upper lung field and to a lesser extent the periphery of the right lower lung field. Pleural spaces: There is a right-sided pneumothorax measuring 44 mm of pleural separation near the right apex. Heart/Mediastinum: Unremarkable. No cardiomegaly. Bones/joints: Unremarkable. XR/XR chest 1V portable [id number] IMPRESSION: 1. There is a right-sided pneumothorax measuring 44 mm of pleural separation near the right apex. 2. Opacities in the right apex, right upper lung field and to a lesser extent the periphery of the right lower lung field.
[2024-06-02 19:36] LABS: Glucose Point of Care 114 mg/dL (70-110)
--- NOTE | 2024-06-02 19:48 | CTR_ITS ---
PROCEDURE INFORMATION: Exam: CT Head Without Contrast Exam date and time: 06/02/2024 8:00 PM Age: 63 years old Clinical indication: Dizziness TECHNIQUE: Imaging protocol: Computed tomography of the head without contrast. Radiation optimization: All CT scans at this facility use at least one of these dose optimization techniques: automated exposure control; mA and/or kV adjustment per patient size (includes targeted exams where dose is matched to clinical indication); or iterative reconstruction. COMPARISON: [place] thyroid [id number] 01/09/2024 12:36 PM RADIATION DOSE METRICS: Total DLP (mGy-cm): 1172.81 FINDINGS: Brain: No acute intracranial abnormality. Cerebral ventricles: No ventriculomegaly. Paranasal sinuses: Visualized sinuses are unremarkable. No fluid levels. Mastoid air cells: Visualized mastoid air cells are well aerated. Bones: Calcifying soft tissue nodule extending off of the outer table of the frontal skull left of midline measuring 12 x 8 mm with no cortical irregularity of the underlying skull may represent sequela of remote injury. Soft tissues: Unremarkable. CT/CT head wo con* [id number] IMPRESSION: No acute intracranial abnormality.
--- NOTE | 2024-06-02 19:49 | W.ED.GENADLT ---
HPI - General Adult General: Chief complaint: General Medical Stated complaint: Dr Avila Possible Septic Time Seen by Provider: 06/02/24 18:51 Source: patient Mode of arrival: ambulatory Limitations: no limitations History of Present Illness: 63-year-old female states she has been having dizziness it has been going on for the last 3 to 4 days. States that she is just felt unsteady when she walks states she is also had some cough congestion. She denies any fevers denies any shortness of breath denies any headache or chest pain. Associated symptoms: Reports dyspnea; Deny chest pain, headache(s), nausea, rash or vomiting Related Data Home Medications Medication Instructions Recorded Confirmed oxygen-air delivery systems 01/17/22 05/27/24 acetaminophen 325 mg tablet 325 mg PO QID PRN Pain 11/19/22 05/27/24 diphenhydramine HCl 25 mg tablet 25 mg PO TID PRN Allergy Symptoms 11/19/22 05/27/24 (Benadryl Allergy) ibuprofen 200 mg tablet 200 mg PO Q6H PRN Pain 11/19/22 05/27/24 CPAP (Standard Cpap) 08/07/23 05/27/24 metformin 500 mg tablet,extended 500 mg PO BID 10/15/23 05/27/24 release 24 hr albuterol sulfate 2.5 mg/3 mL 2.5 mg inhalation Q6H PRN 12/04/23 05/27/24 (0.083 %) solution for nebulization Shortness Of Breath Or Wheezing albuterol sulfate 90 mcg/actuation 2 puff inhalation Q8H PRN 12/04/23 05/27/24 aerosol inhaler Shortness Of Breath Or Wheezing Previous Rx's Medication Instructions Recorded blood sugar diagnostic (Blood #100 ea 06/30/19 Glucose Test strips) blood-glucose meter (Blood Glucose #1 ea 01/22/20 Monitoring kit) flash glucose scanning reader #1 ea 08/01/20 (FreeStyle Jack 2 Parks) flash glucose sensor (FreeStyle #2 ea 08/01/20 Jack 2 Sensor kit) pen needle, diabetic 32 gauge x #100 ea 02/15/22 5/32 (BD Ultra-Fine Corine Pen Needle) nebulizer and supplies #1 ea 02/14/23 afflovest #1 ea 02/26/23 back brace #1 ea 04/15/23 [facility] Home [facility] #1 ea 06/18/23 fluticasone propionate 50 2 spray intranasal DAILY #16 grams 07/26/23 mcg/actuation nasal spray,suspension (Flonase Allergy Relief) insulin glargine 100 unit/mL (3 75 unit (0.75 mL) SUBCUT QAM #67.5 12/16/23 mL) subcutaneous pen (Lantus mL Solostar U-100 Insulin) insulin regular human 100 unit/mL 20 unit (0.2 mL) SUBCUT TID #54 mL 12/16/23 (3 mL) subcutaneous pen (Novolin R FlexPen) pilocarpine HCl 5 mg tablet 5 mg PO TID #90 tabs 12/18/23 atorvastatin 20 mg tablet 20 mg PO BEDTIME #90 tabs 01/08/24 furosemide 40 mg tablet 40 mg PO BID #180 tabs 01/09/24 lisinopril 40 mg tablet 40 mg PO DAILY #90 tabs 01/09/24 potassium chloride 20 mEq 20 meq PO DAILY #90 tabs 01/09/24 tablet,extended release rivaroxaban 20 mg tablet (Xarelto) 20 mg PO DAILY #90 tabs 01/09/24 spironolactone 50 mg tablet 50 mg PO DAILY #90 tabs 01/09/24 budesonide-formoterol HFA 160 See Rx Instructions .Route 01/23/24 mcg-4.5 mcg/actuation aerosol .COMPLEX #11 grams inhaler modafinil 200 mg tablet 200 mg PO QAM #30 tabs 01/28/24 hydroxychloroquine 200 mg tablet 200 mg PO BID #180 tabs 03/16/24 cholecalciferol (vitamin D3) 1,250 See Rx Instructions .Route 04/06/24 mcg (50,000 unit) capsule .COMPLEX #12 caps prednisone 5 mg tablet 5 mg PO DAILY #90 tabs 04/22/24 fluconazole 150 mg tablet 150 mg PO Q3D 2 doses #2 tabs 04/29/24 aripiprazole 10 mg tablet (Abilify) 10 mg PO DAILY #30 tabs 04/30/24 bupropion HCl 300 mg 24 hr tablet, 300 mg PO QAM #30 tabs 04/30/24 extended release (Wellbutrin XL) clonazepam 0.5 mg tablet 0.5 mg PO BID PRN anxiety #60 tabs 04/30/24 sertraline 100 mg tablet (Zoloft) 150 mg (1.5 x 100 mg) PO DAILY #45 04/30/24 tabs zolpidem 5 mg tablet (Ambien) 5 mg PO BEDTIME PRN sleep #30 tabs 04/30/24 umeclidinium 62.5 mcg/actuation See Rx Instructions .Route 05/07/24 blister powder for inhalation .COMPLEX #30 ea (Incruse Ellipta) ipratropium 20 mcg-albuterol 100 See Rx Instructions .Route 05/11/24 mcg/actuation mist for inhalation .COMPLEX #4 grams (Combivent Respimat) metoprolol succinate 25 mg See Rx Instructions .Route 05/19/24 tablet,extended release 24 hr .COMPLEX #30 tabs gabapentin 600 mg tablet See Rx Instructions .Route 05/20/24 .COMPLEX #90 tabs nitroglycerin 0.4 mg sublingual 0.4 mg sublingual Q5M PRN chest 05/21/24 tablet (Nitrostat) pain #25 tabs doxycycline monohydrate 100 mg 100 mg PO BID 7 days #14 caps 05/27/24 capsule Allergies Allergy/AdvReac Type Severity Reaction Status Date / Time Sulfa (Sulfonamide Allergy Unknown Unknown Verified 06/02/24 19:13 Antibiotics) quinine [From Quine] Allergy unknown Verified 06/02/24 19:13 ropinirole [From Requip] Allergy Unknown Verified 06/02/24 19:13 Review of Systems Const: Denies: fever(s), chills, body aches or change in appetite ENMT: Denies: throat pain or dental pain Card: Denies: chest pain Resp: Reports: dyspnea and productive cough GI: Denies: abdominal pain, nausea, vomiting or diarrhea Musc: Denies: neck pain or back pain Skin/Breast: Denies: rash Neuro: Reports: dizziness; Denies: headache(s) PFSH ED PFSH: Medical History Primary Sjogren's syndrome Lower extremity weakness Positive AMI (antinuclear antibody) Disorders of diaphragm Atelectasis of both lungs CHF (congestive heart failure), NYHA class III Drug-induced myopathy Recurrent pneumonia Emphysema lung Encephalopathy acute Acute and chronic respiratory failure with hypercapnia UTI (urinary tract infection) due to Enterococcus Excessive daytime sleepiness Diabetes type 2, controlled Insomnia Gross hematuria UTI (urinary tract infection) Psychiatric care Essential (primary) hypertension Chronic obstructive pulmonary disease with (acute) exacerbation Polyneuropathy, unspecified Callus Porokeratosis PVD (peripheral vascular disease) Shortness of Breath Bilateral leg edema Angina pectoris 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 with no history of malignant neoplasm AF (paroxysmal atrial fibrillation) Hypertension Tobacco abuse disorder Uncontrolled type 2 diabetes mellitus with polyneuropathy Acute DM type 2 causing complication Cannabis dependence, uncomplicated Sleep apnea Nicotine dependence, cigarettes, with other nicotine-induced disorders Bipolar II disorder Post-traumatic stress disorder, chronic Surgical History H/O chest tube placement History of hysterectomy History of cholecystectomy History of appendectomy History of hernia repair Family History Father , AT AGE 21 Gunshot wound Mother , AT AGE 61 CAD (coronary artery disease) Other Cancer Diabetes Stroke Social History Smoking and tobacco/nicotine status: current every day tobacco/nicotine user cigarettes Packs smoked per day: 1.5 Years cigarettes smoked: 52 [ Other cigarette details: Started at age 10] Second hand smoke exposure: Yes Alcohol intake: current Alcohol intake frequency: holidays/special occasions only Alcohol type: other Substance/Drug Use: former Date of last use: 2020 Adopted: No Caregiver/support person: No Lives independently: Yes Household members: significant other Housing: Manufactured/Mobile home Marital status: Life Partner Number of children: 0 Number of grandchildren: 0 Highest education level completed: Some College, No Degree service: No Current occupational status: disabled 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 Current occupational exposures/hazards: No Pets and animals: Yes (3 dogs) Pets & animals: dog(s) Leisure activites: fishing and other Leisure activities details: sewing, writing, gardening Sexually active: Yes How many partners: 1 Do you think of yourself as: Lesbian/Gautam/Homosexual Current gender identity: Female Latha/Shinto: Anabaptist Special latha needs: No Agree to transfusion: Yes Female Reproductive History: Para: 0 Spontaneous abortions: No Physical Exam Const: COMMON NORMALS: patient oriented x3 HENMT: COMMON NORMALS: normocephalic and atraumatic HEAD & SCALP: normocephalic and atraumatic Eye: COMMON NORMALS: Equal, round and reactive pupils present and EOMs intact bilaterally PUPIL: Yes Equal, round and reactive pupils present Neck/C-Spine: COMMON NORMALS: full ROM and supple Chest: COMMONS NORMALS: normal inspection of the chest and normal palpation of entire chest wall Resp: COMMON NORMALS: normal respiratory effort, No retractions, No use of accessory muscles and clear to auscultation bilaterally AUSCULTATION: clear to auscultation bilaterally Cardio: COMMON NORMALS: regular rate, regular rhythm and No murmurs present (Cardio) RATE: regular rate RHYTHM: regular rhythm GI: COMMON NORMALS: Normal to inspection, nondistended, normoactive bowel sounds present, Soft to palpation, non-tender and no masses PALPATION: Yes Soft to palpation Extremity: COMMON NORMALS: normal to inspection and full ROM Neuro: COMMON NORMALS: patient oriented x3, moves all extremities and no focal motor deficits Psych: COMMON NORMALS: mental status grossly normal, Normal thought process present and cooperative THOUGHT PROCESS: Normal thought process present Skin: COMMON NORMALS: no rashes or lesions noted and no wounds GENERAL SKIN EXAM: no rashes or lesions noted Procedures Chest Tube Chest Tube 1: Chest Tube Location: right and mid axillary line (second interoastal) Size of Tube (cm): 13 Chest Tube Prep: Yes betadine prep and sterile drapes applied Local Anesthetic: lidocaine 1% Amount of anesthesia used (mL): 6 Incision Made With: #11 blade Tube Drainage: none Post Procedure CXR?: Yes Patient Tolerated Procedure: Yes Progress: thoravent placed Course Vital Signs: Vital signs: Vital Signs Temperature 97.6 F 06/02/24 19:04 Pulse Rate 81 06/02/24 19:04 Respiratory Rate 22 H 06/02/24 20:25 Blood Pressure 125/83 06/02/24 19:04 Pulse Oximetry 90 06/02/24 20:25 Oxygen Delivery Me thod Room Air 06/02/24 19:04 MDM - General Adult Medical Decision Making Patient presents with dizziness she is also found to have pneumothorax on chest x-ray Thora vent was placed I spoke to hospitalist along with general surgeon will admit at this time. She has been stable while here. Medical Records I reviewed the patient's medical records. Lab Data I reviewed the patient's lab results. 06/02/24 19:50 06/02/24 19:[address] 06/02/24 19:48 IMPRESSION: No acute intracranial abnormality. Chest X-Ray 06/02/24 20:22 IMPRESSION: 1. There is a new right pleural drain in place. 2. Decreased size of the right-sided pneumothorax now measuring 16 mm, previously 44 mm, pleural separation near the apex. Laboratory Results WBC 13.72 10^3/uL (3.29-11.43) H 06/02/24 19:50 RBC 5.12 10^6/uL (3.85-5.65) 06/02/24 19:50 Hgb 14.60 g/dL (11.27-16.99) 06/02/24 19:50 Hct 43.5 % (36-47) 06/02/24 19:50 MCV 85.0 fl (85-98) 06/02/24 19:50 MCH 28.5 pg (27-33) 06/02/24 19:50 MCHC 33.6 g/dL (30-55) 06/02/24 19:50 RDW 13.1 % (12.1-15.1) 06/02/24 19:50 Plt Count 275 10^3/cmm (157-399) 06/02/24 19:50 MPV 9.2 fL (7.4-10.4) 06/02/24 19:50 Neut % (Auto) 77.0 % 06/02/24 19:50 Lymph % (Auto) 13.6 % 06/02/24 19:50 Major % (Auto) 6.2 % 06/02/24 19:50 Eos % (Auto) 2.3 % 06/02/24 19:50 Baso % (Auto) 0.4 % 06/02/24 19:50 Neut # (Auto) 10.57 10^3/uL (1.8-7.7) H 06/02/24 19:50 Lymph # (Auto) 1.9 10^3/uL (0.8-4.8) 06/02/24 19:50 Major # (Auto) 0.9 10^3/uL (0.2-0.9) 06/02/24 19:50 Eos # (Auto) 0.3 10^3/uL (0.0-0.8) 06/02/24 19:50 Baso # (Auto) 0.1 10^3/uL (0.0-0.1) 06/02/24 19:50 Nucleated RBC % (auto) 0 % 06/02/24 19:50 Nucleated RBCs # 0.0 /100WBC 06/02/24 19:50 PT 16.20 SECONDS (12.1-14.9) H 06/02/24 19:50 INR 1.22 (0.8-1.2) H 06/02/24 19:50 Sodium 135 mmol/L (136-145) L 06/02/24 19:50 Potassium 4.5 mmol/L (3.5-5.1) 06/02/24 19:50 Chloride 100 mmol/L (98-107) 06/02/24 19:50 Carbon Dioxide 26 mmol/L (22-29) 06/02/24 19:50 Anion Gap 13.5 (5-19) 06/02/24 19:50 BUN 30 mg/dL (8-23) H 06/02/24 19:50 Creatinine 0.9 mg/dL (0.5-0.9) 06/02/24 19:50 GFR Calculation 63.2 mL/min (90-130) L 06/02/24 19:50 Glucose 106 mg/dL (65-115) 06/02/24 19:50 POC Glucose 114 mg/dL (70-110) H 06/02/24 19:33 Calculated Osmolality 287 mOsm/kg (285-295) 06/02/24 19:50 Calcium 9.5 mg/dL (8.5-10.5) 06/02/24 19:50 Total Bilirubin 0.2 mg/dL (0.15-1.2) 06/02/24 19:50 AST 9 U/L (0-32) 06/02/24 19:50 ALT 13 U/L (0-33) 06/02/24 19:50 Alkaline Phosphatase 93 U/L (35-105) 06/02/24 19:50 Total Protein 6.6 g/dL (6.6-8.7) 06/02/24 19:50 Albumin 3.9 g/dL (3.5-5.2) 06/02/24 19:50 Globulin 2.7 g/dL (1.3-4.6) 06/02/24 19:50 Lipase 33 U/L (13-60) 06/02/24 19:50 Urine Color Yellow (Yellow) 06/02/24 19:58 Urine Appearance Clear (CLEAR) 06/02/24 19:58 Urine pH 5.5 (5-7) 06/02/24 19:58 Ur Specific [place] 1.012 (1.005-1.030) 06/02/24 19:58 Urine Protein Negative (Negative) 06/02/24 19:58 Urine Glucose (UA) Trace (Normal) H 06/02/24 19:58 Urine Ketones Negative (Negative) 06/02/24 19:58 Urine Blood Negative (Negative) 06/02/24 19:58 Urine Nitrate Negative (Negative) 06/02/24 19:58 Urine Bilirubin Negative (Negative) 06/02/24 19:58 Urine Urobilinogen 0.2 mg/dL (Negative) 06/02/24 19:58 Ur Leukocyte Esterase Negative (Negative) 06/02/24 19:58 Urine RBC 0-2 /hpf (0-2) 06/02/24 19:58 Urine WBC 0-5 /hpf (0-5) 06/02/24 19:58 Ur Squamous Epith Cells 0-5 /hpf (0-5) 06/02/24 19:58 Amorphous Sediment Not Reportable 06/02/24 19:58 Urine Bacteria None seen /hpf (NONE) 06/02/24 19:58 Hyaline Casts 3.30 /lpf 06/02/24 19:58 All radiology interpretation(s) finalized by discharge Discharge Plan Discharge Patient Disposition: Admitted As Inpatient Clinical Impression: Pneumothorax, Dizziness Condition: Stable Prescriptions: No Action (DME) Blood Glucose Test Strip See Rx Instructions .ROUTE .MEDSUPPLY Qty: 100 1RF Rx Instructions: As directed (DME) oxygen-air delivery systems Device See Rx Instructions .Route Rx Instructions: As directed acetaminophen 325 mg tablet 325 mg PO QID PRN (Reason: Pain) diphenhydramine HCl [Benadryl Allergy] 25 mg tablet 25 mg PO TID PRN (Reason: Allergy Symptoms) ibuprofen 200 mg tablet 200 mg PO Q6H PRN (Reason: Pain) ([facility] [place]) nebulizer and supplies See Rx Instructions .Route .MEDSUPPLY Qty: 1 0RF Rx Instructions: As directed ([facility] [place]) back brace See Rx Instructions .Route .MEDSUPPLY Qty: 1 0RF Rx Instructions: As directed ([facility] [place]) Standard Cpap Device See Rx Instructions .Route Rx Instructions: As directed fluticasone propionate [Flonase Allergy Relief] 50 mcg/actuation spray,suspension 2 spray intranasal DAILY Qty: 16 1RF Rx Instructions: administer into each nostril ([facility] [place]) pen needle, diabetic [BD Ultra-Fine Corine Pen Needle] 32 gauge x 5/32 needle See Rx Instructions .Route Qty: 100 3RF Rx Instructions: use as directed for insulin injections twice daily Novolin R FlexPen 100 unit/mL (3 mL) insulin pen 20 unit SUBCUT TID Qty: 54 1RF insulin glargine [Lantus Solostar U-100 Insulin] 100 unit/mL (3 mL) insulin pen 75 unit SUBCUT QAM Qty: 67.5 1RF pilocarpine HCl 5 mg tablet 5 mg PO TID Qty: 90 5RF modafinil 200 mg tablet 200 mg PO QAM Qty: 30 2RF aripiprazole [Abilify] 10 mg tablet 10 mg PO DAILY Qty: 30 2RF bupropion HCl [Wellbutrin XL] 300 mg tablet extended release 24 hr 300 mg PO QAM Qty: 30 2RF zolpidem [Ambien] 5 mg tablet 5 mg PO BEDTIME PRN (Reason: sleep) Qty: 30 2RF sertraline [Zoloft] 100 mg tablet 150 mg PO DAILY Qty: 45 2RF clonazepam 0.5 mg tablet 0.5 mg PO BID PRN (Reason: anxiety) Qty: 60 1RF fluconazole 150 mg tablet 150 mg PO Q3D Qty: 2 0RF Rx Instructions: may repeat second dose 72 hrs after first dose if symptoms persist nitroglycerin [Nitrostat] 0.4 mg tablet, sublingual 0.4 mg SUBLINGUAL Q5M PRN (Reason: chest pain) Qty: 25 3RF Rx Instructions: do not exceed 3 doses per episode doxycycline monohydrate 100 mg capsule 100 mg PO BID 7 Days Qty: 14 0RF (DME) blood-glucose meter [Blood Glucose Monitoring] Kit See Rx Instructions .ROUTE .MEDSUPPLY Qty: 1 0RF Rx Instructions: As directed ([facility] [place]) FreeStyle Jack 2 Sensor Kit See Rx Instructions .ROUTE .MEDSUPPLY Qty: 2 3RF Rx Instructions: pt having hypoglycemia (DME) FreeStyle Jack 2 Parks Misc See Rx Instructions .ROUTE .MEDSUPPLY Qty: 1 0RF Rx Instructions: As directed (DME) afflovest See Rx Instructions .Route .MEDSUPPLY Qty: 1 0RF Rx Instructions: As directed ([facility] [place]) [place] [facility] See Rx Instructions .Route .MEDSUPPLY Qty: 1 0RF Rx Instructions: As directed atorvastatin 20 mg tablet 20 mg PO BEDTIME Qty: 90 3RF spironolactone 50 mg tablet 50 mg PO DAILY Qty: 90 3RF Xarelto 20 mg tablet 20 mg PO DAILY Qty: 90 3RF lisinopril 40 mg tablet 40 mg PO DAILY Qty: 90 3RF furosemide 40 mg tablet 40 mg PO BID Qty: 180 2RF potassium chloride 20 mEq tablet extended release 20 meq PO DAILY Qty: 90 3RF budesonide-formoterol 160-4.5 mcg/actuation HFA aerosol inhaler See Rx Instructions .ROUTE .COMPLEX Qty: 11 0RF Dose Instruction: Inhale 2 puffs by mouth twice daily Rx Instructions: Inhale 2 puffs by mouth twice daily hydroxychloroquine 200 mg tablet 200 mg PO BID Qty: 180 1RF cholecalciferol (vitamin D3) 1,250 mcg (50,000 unit) capsule See Rx Instructions .ROUTE .COMPLEX Qty: 12 0RF Dose Instruction: Take 1 capsule by mouth once a week Rx Instructions: Take 1 capsule by mouth once a week prednisone 5 mg tablet 5 mg PO DAILY Qty: 90 1RF Incruse Ellipta 62.5 mcg/actuation blister with device See Rx Instructions .ROUTE .COMPLEX Qty: 30 0RF Dose Instruction: Inhale 1 puff by mouth once daily Rx Instructions: Inhale 1 puff by mouth once daily Combivent Respimat 20-100 mcg/actuation mist See Rx Instructions .ROUTE .COMPLEX Qty: 4 0RF Dose Instruction: INHALE 1 PUFF BY MOUTH EVERY 6 HOURS NEEDED FOR SHORTNESS OF BREATH Rx Instructions: INHALE 1 PUFF BY MOUTH EVERY 6 HOURS NEEDED FOR SHORTNESS OF BREATH metoprolol succinate 25 mg tablet extended release 24 hr See Rx Instructions .ROUTE .COMPLEX Qty: 30 0RF Dose Instruction: Take 1 tablet by mouth once daily Rx Instructions: Take 1 tablet by mouth once daily gabapentin 600 mg tablet See Rx Instructions .ROUTE .COMPLEX Qty: 90 0RF Dose Instruction: TAKE ONE TABLET BY MOUTH EVERY MORNING , AT NOON, AND EVERY EVENING Rx Instructions: TAKE ONE TABLET BY MOUTH EVERY MORNING , AT NOON, AND EVERY EVENING metformin 500 mg tablet extended release 24 hr 500 mg PO BID albuterol sulfate 2.5 mg /3 mL (0.083 %) solution for nebulization 2.5 mg inhalation Q6H PRN (Reason: Shortness Of Breath Or Wheezing) Rx Instructions: Inhale 1 vial via nebulizer every 6 hours albuterol sulfate 90 mcg/actuation HFA aerosol inhaler 2 puff inhalation Q8H PRN (Reason: Shortness Of Breath Or Wheezing) Rx Instructions: INHALE 2 PUFFS BY MOUTH EVERY 8 HOURS NEEDED FOR SHORTNESS OF BREATH OR WHEEZING Referrals: Marguerite Wade FNP [Primary Care Provider] - Coding Level of Care Code ED Python Java Developer for Cordell Cortez
[2024-06-02 20:00] LABS: Basophils # 0.1 10^3/uL (0.0-0.1); Basophils % 0.4 %; Eosinophils # 0.3 10^3/uL (0.0-0.8); Eosinophils % 2.3 %; Hematocrit 43.5 % (36-47); Lymphocytes # 1.9 10^3/uL (0.8-4.8); Lymphocytes % 13.6 %; Mean Corpuscular HGB Conc 33.6 g/dL (30-55); Mean Corpuscular Hemoglobin 28.5 pg (27-33); Mean Platelet Volume 9.2 fL (7.4-10.4); Monocytes # 0.9 10^3/uL (0.2-0.9); Monocytes % 6.2 %; Neutrophils # 10.57 10^3/uL (1.8-7.7); Nucleated Red Blood Cells % 0 %; Platelet Count 275 10^3/cmm (157-399); Red Blood Count 5.12 10^6/uL (3.85-5.65); Red Cell Distribution Width 13.1 % (12.1-15.1); White Blood Count 13.72 10^3/uL (3.29-11.43)
[2024-06-02 20:05] LABS: Bilirubin Urine Negative (Negative); Blood Urine Negative (Negative); Glucose Urine UA Trace (Normal); Ketones Urine Negative (Negative); Leukocyte Esterase Urine Negative (Negative); Nitrate Urine Negative (Negative); Protein Urine Negative (Negative); Specific Gravity, Urine 1.012 (1.005-1.030); Urine Appearance Clear (CLEAR); Urine Color Yellow (Yellow); Urobilinogen Urine 0.2 mg/dL (Negative); pH Urine 5.5 (5-7)
[2024-06-02 20:08] LABS: Add Urine Microscopic? YES; Bacteria Urine None Seen /hpf; RBC Urine 0-2 /hpf (0-2); Squamous Epithelial Cell Urine 0-5 /hpf (0-5); WBC Urine 0-5 /hpf (0-5)
[2024-06-02 20:09] LABS: INR 1.22 (0.8-1.2)
[2024-06-02 20:14] LABS: Alanine Aminotransferase 13 U/L (0-33); Albumin Level 3.9 g/dL (3.5-5.2); Alkaline Phosphatase 93 U/L (35-105); Anion Gap 13.5 (5-19); Aspartate Amino Transferase 9 U/L (0-32); Blood Urea Nitrogen 30 mg/dL (8-23); Calcium 9.5 mg/dL (8.5-10.5); Carbon Dioxide 26 mmol/L (22-29); Chloride 100 mmol/L (98-107); Creatinine Clr Calc Pharmacy 94.2904; Globulin 2.7 g/dL (1.3-4.6); Glomerular Filtration Rate 63.2 mL/min (90-130); Glucose 106 mg/dL (65-115); Lipase 33 U/L (13-60); Osmolality Calculated 287 mOsm/kg (285-295); Potassium 4.5 mmol/L (3.5-5.1); Sodium 135 mmol/L (136-145); Total Bilirubin 0.2 mg/dL (0.15-1.2); Total Protein 6.6 g/dL (6.6-8.7)
--- NOTE | 2024-06-02 20:22 | XRR_ITS ---
PROCEDURE INFORMATION: Exam: XR Chest Exam date and time: 06/02/2024 8:33 PM Age: 63 years old Clinical indication: Device placement; Chest tube; Additional info: Post thoravent TECHNIQUE: Imaging protocol: Radiologic exam of the chest. Views: 1 view. COMPARISON: CR (CHEST, ) 06/02/2024 7:28 PM FINDINGS: Tubes, catheters and devices: There is a new right pleural drain in place. Lungs: Opacities in the right lung are redemonstrated and similar. Pleural spaces: Decreased size of the right-sided pneumothorax now measuring 16 mm, previously 44 mm, pleural separation near the apex. Heart/Mediastinum: Unremarkable. No cardiomegaly. Bones/joints: Unremarkable. XR/XR chest 1V portable [id number] IMPRESSION: 1. There is a new right pleural drain in place. 2. Decreased size of the right-sided pneumothorax now measuring 16 mm, previously 44 mm, pleural separation near the apex.
[2024-06-02] MEDS: HYDROmorphone 1 mg/mL INJ 1 mL IVP (20:25)
--- NOTE | 2024-06-02 20:43 | P.HP_ITS ---
Providers/Chief Complaint 2 Admitting Physician: Edilma Medeiros I Primary Care Provider: LILLIE Pleitez Chief Complaint: Dr Avila Possible Septic History of Present Illness Patient is a poor historian and not very cooperative. History is obtained both from the patient and from the ICU. Alissa Beck is a 63 yo woman w/ Sjogen's Syndrome, inflammatory arthritis, mononeuritis multiplex, IDDM2, chronic HFpEF, Emphysema, JOSE MARIA on CPAP w/ 2L bled in at night who presented to the ED on 06/02/2024 w/ complaints of disequilibrium such that she felt wobbly and could hardly walk. She states that she was just walking around the house when she started to experience the aforementioned sensation. She complained of a headache and endorsed nause. SHe endorses a mild productive cough. She endorses that she wheezes at times but not that bad. She denies dyspnea, CP, palpitations, fever, cheills, syncope. She endorses dysphagia to solids but not liquids. Per ED signout, patient has had 2 episodes of PTX in the past. In the ED, patient was tachypneic to 22, and the rest of her vital signs were within normal limits. Her labs were significant for leukocytosis of 13.7. Her UA was negative for UTI. Her CT head was negative. Her CXR showed R. PTX w/ opacities in the apex, R. middle and lower lung. A R. sided thoravent was placed. Dr. Fields the general surgeon was consulted by the ED physician, who agreed to manage the chest tube. Review of Systems 2 Narrative: Her ROS was limited by her cooperativity. Const: Denies: fever(s) or chills Eyes: Denies: change in vision or blurry vision ENMT: Denies: odynophagia, ear or mastoid pain or ear discharge Card: Denies: chest pain, palpitations or syncope Resp: Reports: productive cough and wheezing; Denies: dyspnea GI: Reports: nausea and dysphagia; Denies: abdominal pain, vomiting, diarrhea, constipation or hematochezia : Denies: difficulty voiding Musc: Reports: joint pain Medications/Allergies Home Medications Medication Instructions Recorded Confirmed Last Taken Type blood sugar diagnostic (Blood #100 ea 06/30/19 05/27/24 Unknown Rx Glucose Test strips) blood-glucose meter (Blood Glucose #1 ea 01/22/20 05/27/24 Unknown Rx Monitoring kit) flash glucose scanning reader #1 ea 08/01/20 05/27/24 Unknown Rx (FreeStyle Jack 2 [place]) flash glucose sensor (FreeStyle #2 ea 08/01/20 05/27/24 Unknown Rx Jack 2 Sensor kit) oxygen-air delivery systems 01/17/22 05/27/24 Unknown History pen needle, diabetic 32 gauge x #100 ea 02/15/22 05/27/24 Unknown Rx (BD Ultra-Fine [place] Pen Needle) acetaminophen 325 mg tablet 325 mg PO QID PRN Pain 11/19/22 05/27/24 Unknown History diphenhydramine HCl 25 mg tablet 25 mg PO TID PRN Allergy Symptoms 11/19/22 05/27/24 Unknown History (Benadryl Allergy) ibuprofen 200 mg tablet 200 mg PO Q6H PRN Pain 11/19/22 05/27/24 Unknown History nebulizer and supplies #1 ea 02/14/23 05/27/24 Unknown Rx afflovest #1 ea 02/26/23 05/27/24 Unknown Rx back brace #1 ea 04/15/23 05/27/24 Unknown Rx DC Home Health #1 ea 06/18/23 05/27/24 Unknown Rx fluticasone propionate 50 2 spray intranasal DAILY #16 grams 07/26/23 05/27/24 12/03/23 Rx mcg/actuation nasal spray,suspension (Flonase Allergy Relief) CPAP (Standard Cpap) 08/07/23 05/27/24 Unknown History metformin 500 mg tablet,extended 500 mg PO BID 10/15/23 05/27/24 12/03/23 History release 24 hr albuterol sulfate 2.5 mg/3 mL 2.5 mg inhalation Q6H PRN 12/04/23 05/27/24 Unknown History (0.083 %) solution for nebulization Shortness Of Breath Or Wheezing albuterol sulfate 90 mcg/actuation 2 puff inhalation Q8H PRN 12/04/23 05/27/24 Unknown History aerosol inhaler Shortness Of Breath Or Wheezing insulin glargine 100 unit/mL (3 75 unit (0.75 mL) SUBCUT QAM #67.5 12/16/23 05/27/24 Unknown Rx mL) subcutaneous pen (Lantus mL Solostar U-100 Insulin) insulin regular human 100 unit/mL 20 unit (0.2 mL) SUBCUT TID #54 mL 12/16/23 05/27/24 Unknown Rx (3 mL) subcutaneous pen (Novolin R FlexPen) pilocarpine HCl 5 mg tablet 5 mg PO TID #90 tabs 12/18/23 05/27/24 Unknown Rx atorvastatin 20 mg tablet 20 mg PO BEDTIME #90 tabs 01/08/24 05/27/24 Unknown Rx furosemide 40 mg tablet 40 mg PO BID #180 tabs 01/09/24 05/27/24 Unknown Rx lisinopril 40 mg tablet 40 mg PO DAILY #90 tabs 01/09/24 05/27/24 Unknown Rx potassium chloride 20 mEq 20 meq PO DAILY #90 tabs 01/09/24 05/27/24 Unknown Rx tablet,extended release rivaroxaban 20 mg tablet (Xarelto) 20 mg PO DAILY #90 tabs 01/09/24 05/27/24 Unknown Rx spironolactone 50 mg tablet 50 mg PO DAILY #90 tabs 01/09/24 05/27/24 Unknown Rx budesonide-formoterol HFA 160 See Rx Instructions .Route 01/23/24 05/27/24 Unknown Rx mcg-4.5 mcg/actuation aerosol .COMPLEX #11 grams inhaler modafinil 200 mg tablet 200 mg PO QAM #30 tabs 01/28/24 05/27/24 Unknown Rx hydroxychloroquine 200 mg tablet 200 mg PO BID #180 tabs 03/16/24 05/27/24 Unknown Rx cholecalciferol (vitamin D3) 1,250 See Rx Instructions .Route 04/06/24 05/27/24 Unknown Rx mcg (50,000 unit) capsule .COMPLEX #12 caps prednisone 5 mg tablet 5 mg PO DAILY #90 tabs 04/22/24 05/27/24 Unknown Rx fluconazole 150 mg tablet 150 mg PO Q3D 2 doses #2 tabs 04/29/24 05/27/24 Unknown Rx aripiprazole 10 mg tablet (Abilify) 10 mg PO DAILY #30 tabs 04/30/24 05/27/24 Unknown Rx bupropion HCl 300 mg 24 hr tablet, 300 mg PO QAM #30 tabs 04/30/24 05/27/24 Unknown Rx extended release (Wellbutrin XL) clonazepam 0.5 mg tablet 0.5 mg PO BID PRN anxiety #60 tabs 04/30/24 05/27/24 Unknown Rx sertraline 100 mg tablet (Zoloft) 150 mg (1.5 x 100 mg) PO DAILY #45 04/30/24 05/27/24 Unknown Rx tabs zolpidem 5 mg tablet (Ambien) 5 mg PO BEDTIME PRN sleep #30 tabs 04/30/24 05/27/24 Unknown Rx umeclidinium 62.5 mcg/actuation See Rx Instructions .Route 05/07/24 05/27/24 Unknown Rx blister powder for inhalation .COMPLEX #30 ea (Incruse Ellipta) ipratropium 20 mcg-albuterol 100 See Rx Instructions .Route 05/11/24 05/27/24 Unknown Rx mcg/actuation mist for inhalation .COMPLEX #4 grams (Combivent Respimat) metoprolol succinate 25 mg See Rx Instructions .Route 05/19/24 05/27/24 Unknown Rx tablet,extended release 24 hr .COMPLEX #30 tabs gabapentin 600 mg tablet See Rx Instructions .Route 05/20/24 05/27/24 Unknown Rx .COMPLEX #90 tabs nitroglycerin 0.4 mg sublingual 0.4 mg sublingual Q5M PRN chest 05/21/24 05/27/24 Unknown Rx tablet (Nitrostat) pain #25 tabs doxycycline monohydrate 100 mg 100 mg PO BID 7 days #14 caps 05/27/24 05/27/24 Unknown Rx capsule Allergies Allergy/AdvReac Type Severity Reaction Status Date / Time Sulfa (Sulfonamide Allergy Unknown Unknown Verified 06/02/24 19:13 Antibiotics) quinine [From Quine] Allergy unknown Verified 06/02/24 19:13 ropinirole [From Requip] Allergy Unknown Verified 06/02/24 19:13 PFSH Acute 2 PFSH: Medical History Primary Sjogren's syndrome Lower extremity weakness Positive AMI (antinuclear antibody) Disorders of diaphragm Atelectasis of both lungs CHF (congestive heart failure), NYHA class III Drug-induced myopathy Recurrent pneumonia Emphysema lung Encephalopathy acute Acute and chronic respiratory failure with hypercapnia UTI (urinary tract infection) due to Enterococcus Excessive daytime sleepiness Diabetes type 2, controlled Insomnia Gross hematuria UTI (urinary tract infection) Psychiatric care Essential (primary) hypertension Chronic obstructive pulmonary disease with (acute) exacerbation Polyneuropathy, unspecified Callus Porokeratosis PVD (peripheral vascular disease) Shortness of Breath Bilateral leg edema Angina pectoris 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 with no history of malignant neoplasm AF (paroxysmal atrial fibrillation) Hypertension Tobacco abuse disorder Uncontrolled type 2 diabetes mellitus with polyneuropathy Acute DM type 2 causing complication Cannabis dependence, uncomplicated Sleep apnea Nicotine dependence, cigarettes, with other nicotine-induced disorders Bipolar II disorder Post-traumatic stress disorder, chronic Surgical History H/O chest tube placement History of hysterectomy History of cholecystectomy History of appendectomy History of hernia repair Family History Father , AT AGE 21 Gunshot wound Mother , AT AGE 61 CAD (coronary artery disease) Other Cancer Diabetes Stroke Social History Smoking and tobacco/nicotine status: current every day tobacco/nicotine user cigarettes Packs smoked per day: 1.5 Years cigarettes smoked: 52 [ Other cigarette details: Started at age 10] Second hand smoke exposure: Yes Alcohol intake: current Alcohol intake frequency: holidays/special occasions only Alcohol type: other Substance/Drug Use: former Date of last use: 2020 Adopted: No Caregiver/support person: No Lives independently: Yes Household members: significant other Housing: Manufactured/Mobile home Marital status: Life Partner Number of children: 0 Number of grandchildren: 0 Highest education level completed: Some College, No Degree service: No Current occupational status: disabled 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 Current occupational exposures/hazards: No Pets and animals: Yes (3 dogs) Pets & animals: dog(s) Leisure activites: fishing and other Leisure activities details: sewing, writing, gardening Sexually active: Yes How many partners: 1 Do you think of yourself as: Lesbian/Gautam/Homosexual Current gender identity: Female Latha/Druze: Adventism Special latha needs: No Agree to transfusion: Yes Female Reproductive History: Para: 0 Spontaneous abortions: No Vitals/I&O/Wt Last Vital Signs Temp 97.6 F 06/02/24 19:04 Pulse 81 06/02/24 19:04 Resp 22 H 06/02/24 20:25 BP 125/83 06/02/24 19:04 Pulse Ox 90 06/02/24 20:25 O2 Del Method Room Air 06/02/24 19:04 06/02/24 06/02/24 06/02/24 06:59 14:59 22:59 Intake Total 0 / 0 Balance 0 / 0 Weight last 48 hrs Weight 130.635 kg Physical Exam 2 Const: GENERAL APPEARANCE: comfortable; not cooperative ORIENTATION/CONSCIOUSNESS: Yes awake, Yes oriented to person, Yes oriented to place and Yes oriented to time HENMT: HEAD & SCALP: normocephalic and atraumatic NOSE: Normal external nose present EXTERNAL EAR: Yes external ears normal MOUTH: Normal oral and palatal mucosa present THROAT: posterior oropharynx normal Eye: CONJUNCTIVA: Yes conjunctivae normal PUPIL: Yes Equal, round and reactive pupils present EOM: No EOM abnormal Neck/C-Spine: GENERAL: Yes normal visual inspection and Yes trachea midline THYROID: Thyroid normal CERVICAL SPINE: Yes cervical ROM normal Lymph: OTHER: no cervical or supraclavicular LAD Resp: OTHER: b/l inspiratory rhonchi and expiratory wheezes. No use of accessory muscles. Cardio: OTHER: RRR, no m/r/g or clicks. 2+ DP and radial pulses b/l GI: OTHER: BS+, NT, ND, no guarding, rigidity or rebound tenderness, no hepatosplenomegaly Extremity: GENERAL: No clubbing, No cyanosis and No edema Neuro: CRANIAL NERVES: Yes CN normal except as noted SPEECH: speech normal SENSORY EXAM: No sensory level loss detected MOTOR EXAM: 5/5 motor strength present throughout and Normal motor muscle tone present throughout Psych: APPEARANCE: Yes grossly normal ATTITUDE: Yes agitated A CTIVITY/MOTOR BEHAVIOR: Yes appropriate eye contact SPEECH: Yes normal speech MOOD & AFFECT: Yes irritable Skin: GENERAL SKIN EXAM: no rashes or lesions noted Data 06/02/24 19:50 06/02/24 19:50 A&P Assessment and plan (1) COPD exacerbation: (2) Pneumothorax: Qualifiers: Pneumothorax type: spontaneous, primary Qualified Code(s): J93.11 - Primary spontaneous pneumothorax (3) Acute on chronic hypoxic respiratory failure: Plan Alissa Beck is a 63 yo woman w/ Sjogen's Syndrome, inflammatory arthritis, mononeuritis multiplex, IDDM2, chronic HFpEF, Emphysema, JOSE MARIA on CPAP w/ 2L bled in at night who presented to the ED on 06/02/2024 w/ complaints of disequilibrium such that she felt wobbly and could hardly walk. She is admitted for a recurrent PTX. #Acute on chronic Hypoxic Respiratory Failure: On 2L at 99%. Wean as tolerated. #R. PTX s/p Thoravent - Hx of 2 PTX in the past. - Morning CXR ordered. - Consult Gen Surger for Chest tube mgmt #Acute COPD exacerbation: Duonebs ordered, Zosyn, Azithromycin ordered, PPI, Solumedrol ordered. #SIRS vs Sepsis #Possible R. sided pneumonia - Ordered Zosyn, Azithromycin and sputum cx. Ordered COVID/Influenza/RSV. #JOSE MARIA on CPAP: Please order her a CPAP w/ 2L bled in at night. #chronic HFpEF #Paroxysmal Afib #HTN #HLD #PVD - On Telemetry. Full dose Lovenox ordered - Further management per day hospitalist. #IDDM2 w/ diabetic neuroathy - Ordered Insulin glargine 40units w/ low dose SSI during the day and medium dose SSI at night. #Sjogen's Syndrome, inflammatory arthritis, mononeuritis multiplex - Defer re-initiation of meds to the day hospitalist. #Bipolar II d/o #Insomnia #Tobacco & Cannabis use d/o - Defer re-initiation of meds to the day hospitalist. #L. adrenal adnemoma #Thyroid nodule Attestations 2 Medical Necessity Statement*: Patient needs to be hospitalized for her acute on chronic hypoxic hypercapneic respiratory failure, R .pneumothorax, R. pneumonia, and Acute COPD exacerbation. Time Spent in Patient Care: >70mins was spent on chart review, patient interview and exam, lab/image review, plan formulation and coordination of care. Coding Level of Care Code 69292 Diagnoses COPD exacerbation J44.1 Primary spontaneous pneumothorax J93.11 Pneumothorax type: spontaneous, primary Acute on chronic hypoxic respiratory failure J96.21
[2024-06-02] MEDS: cefTRIAXone 1,000 mg SDV 1000 MG IVP (21:07)
[2024-06-02] MEDS: AZITHROMYCIN ADD-Vantage 500 MG in 0.9% NaCl ADD-Vantage 250 ML 250 MG IV (21:08)
[2024-06-03] VITALS (16 sets, daily range): BP systolic 112–125; BP diastolic 63–73; PULSE 56–86; RESP 16–20; TEMP 36.3–37.1; O2SAT 90–94
[2024-06-03] MEDS: HYDROmorphone 1 mg/mL INJ 1 mL IVP (02:07)
[2024-06-03] MEDS: sodium chloride 0.9% 1,000 ML 100 ML IV (05:52)
[2024-06-03 06:02] LABS: Glucose Point of Care 128 mg/dL (70-110)
--- NOTE | 2024-06-03 06:18 | XRR_ITS ---
PROCEDURE INFORMATION: Exam: XR Chest Exam date and time: 06/03/2024 6:26 AM Age: 63 years old Clinical indication: Other: F/u pneumothorax TECHNIQUE: Imaging protocol: Radiologic exam of the chest. Views: 1 view. COMPARISON: CR (CHEST, ) 06/02/2024 8:33 PM FINDINGS: Tubes, catheters and devices: Pigtail right-sided pleural drain is seen stable positioning and orientation from prior comparison. Lungs: Stable interstitial markings of the bilateral lungs without focal consolidation infiltrate. Basilar atelectasis/scarring is seen. Pleural spaces: No significant pneumothorax. Heart/Mediastinum: Unremarkable. No cardiomegaly. Bones/joints: Unremarkable. XR/XR chest 1V portable [id number] IMPRESSION: No significant residual pneumothorax from prior comparison.
[2024-06-03] MEDS: pantoprazole DR 40 mg Tablet PO (06:35)
[2024-06-03] MEDS: piperacillin-tazobactam 3.375 GM in sodium chloride 0.9% (plus) 50 ML IV ×3 (06:42→21:53)
[2024-06-03] MEDS: methylPREDNISolone sod succ 125 mg/2 mL INJ IVP (06:42)
[2024-06-03] MEDS: ipratropium-albuterol 3 mL Neb INHALATION ×3 (07:02→20:52)
[2024-06-03 07:03] LABS: Basophils % 0.4 %; Eosinophils # 0.3 10^3/uL (0.0-0.8); Eosinophils % 2.6 %; Hematocrit 45.2 % (36-47); Lymphocytes # 2.4 10^3/uL (0.8-4.8); Lymphocytes % 21.9 %; Mean Corpuscular HGB Conc 30.5 g/dL (30-55); Mean Corpuscular Hemoglobin 27.8 pg (27-33); Mean Corpuscular Volume 90.9 fl (85-98); Monocytes # 0.7 10^3/uL (0.2-0.9); Monocytes % 6.7 %; Neutrophils # 7.43 10^3/uL (1.8-7.7); Neutrophils % 67.8 %; Nucleated Red Blood Cells % 0 %; Platelet Count 231 10^3/cmm (157-399); Red Blood Count 4.97 10^6/uL (3.85-5.65); Red Cell Distribution Width 13.1 % (12.1-15.1); White Blood Count 10.98 10^3/uL (3.29-11.43)
[2024-06-03 07:20] LABS: Magnesium 1.6 mg/dL (1.7-2.3); Phosphorus 3.8 mg/dL (2.5-4.5)
[2024-06-03 07:21] LABS: Alanine Aminotransferase 11 U/L (0-33); Albumin Level 3.5 g/dL (3.5-5.2); Alkaline Phosphatase 82 U/L (35-105); Anion Gap 15.4 (5-19); Aspartate Amino Transferase 10 U/L (0-32); Blood Urea Nitrogen 27 mg/dL (8-23); Calcium 9.1 mg/dL (8.5-10.5); Carbon Dioxide 23 mmol/L (22-29); Chloride 98 mmol/L (98-107); Creatinine Clr Calc Pharmacy 84.9603; Globulin 2.5 g/dL (1.3-4.6); Glucose 152 mg/dL (65-115); Osmolality Calculated 282 mOsm/kg (285-295); Potassium 4.4 mmol/L (3.5-5.1); Sodium 132 mmol/L (136-145); Total Bilirubin 0.2 mg/dL (0.15-1.2)
[2024-06-03 08:09] LABS: Covid PCR NEGATIVE (Negative); Influenza A NEGATIVE (Negative); Influenza B NEGATIVE (Negative); Respiratory Syncytial Virus Ce NEGATIVE (Negative)
[2024-06-03 08:30] LABS: INR 0.99 (0.8-1.2)
[2024-06-03 08:31] LABS: Partial Thromboplastin Time 36.1 SECONDS (23.9-36.7)
--- NOTE | 2024-06-03 08:44 | PC.PHAR ---
Pt verified her medications, some of which were questionable whether she has been taking: due to last fill dates. Pt pretty sleepy when talking to me. Verifying with Ezra Booth View-2 medications-Lantus Solostar and Modafinil 200mg.
[2024-06-03] MEDS: enoxaparin 150 mg/mL Syringe 130 MG SUBCUT ×2 (09:43→21:52)
[2024-06-03] MEDS: insulin glargine 100 units/1 mL 40 UNIT SUBCUT (09:44)
[2024-06-03] MEDS: HYDROcodone-acetaminophen 5-325 mg Tablet 1 TAB PO ×2 (09:44→20:26)
[2024-06-03] MEDS: sennosides 8.6 mg Tablet 17.2 MG PO (09:44)
--- NOTE | 2024-06-03 10:00 | PC.CHAP ---
Pastoral Care Encounter/Spiritual Assessment Type of Contact [] Declined slitter and rewinder visit [] Patient/Family/Request visit [] Outpatient visit [] Follow-up visit [] Physician referral [] Code/Alert [] Routine visit [] Staff referral [] Actively dying [x] Patient sleeping [] Family support [] [] Out of room [] Palliative care [] [x] Receiving care in room [] Pre-surgical visit [] Trauma [] Long length of stay [] ICU visit [] Other: Relational/Emotional Strength [] Patient feels connected with others/family/visitors/staff [] Distress [] Loneliness/isolation [] Abandonment Spirituality of Patient [] Person of Latha [] Attends Alevism of their Latha [] Believes in Prayer [] Reads Bible or Orthodoxy materials [] There are Spiritual issues to be addressed Spectrographer Interventions [] Prayer [] Active listening [] Non-anxious presence [] Spiritual/emotional support [] Crisis/trauma care [] Spiritual counseling [] Bereavement support [] Provided bereavement packet [] Provided Bible/devotional materials [] Provided toy/stuffed animal, coloring book to patient or family member [] Provided Communion [] Anointing/[place] [] Salvation [] Completed spiritual assessment [] Other: Impact on Illness or Injury [] Angry [] Fearful [] Anxious [] Often cries [] Exhaustion [] Unable to work [] Unable to attend zoroastrian [] Unable to walk/stand [] Unable to read [] Unable to drive [] Unable to eat/drink [] Unable to sleep [] Unable to be with family [] Patient intubated [] Other: Summary Time spent with patient
--- NOTE | 2024-06-03 10:40 | CT_ITS ---
WS: [id number] CT chest wo con [id number] HISTORY: sob TECHNIQUE: Axial imaging performed through the thorax. Coronal and sagittal reformats are submitted. All CT scans at [facility] use at least one of these dose optimization techniques: automated exposure control; mA and/or kV adjustment per patient size (includes targeted exams where dose is mat ched to clinical indication); or iterative reconstruction. CONTRAST: None DLP: 644.27 mGy.cm COMPARISON: 12/04/2023, chest radiograph 06/03/2024 and 06/02/2024 Lungs and central airway: Small persistent RIGHT pneumothorax. Estimated at less than 10%. Thora vent entry in the RIGHT anterior upper thorax. The tip of the Thora vent is encased by lung. There is adj acent consolidation at the tip of the Thora vent insertion site. Compressive atelectasis at the RIGHT apex. Wedge-shaped consolidation RIGHT upper lobe associated with the tip of the Thora vent. Pleura: No pleural effusions. Heart and pericardium: Moderate cardiomegaly. Mediastinum and harrison: No mediastinum or hilar adenopathy. Vessels: Atherosclerosis aorta. Mildly dilated pulmonary artery. Chest wall and lower neck: Bilateral thyroid nodules. Upper abdomen: Prior cholecystectomy. LEFT adrenal adenoma. Osseous structures: No destructive process. CT/CT chest wo con [id number] IMPRESSION: 1. Small residual RIGHT pneumothorax. 2. Tip of the inserted Thora vent appears to be encased or embedded within the RIGHT upper lobe lung. Wedge-shaped consolidation, likely atelectasis surround ing the tip of the thyroid bed. There are event may need to be repositioned or removed.
[2024-06-03 11:05] LABS: Glucose Point of Care 282 mg/dL (70-110)
[2024-06-03] MEDS: insulin lispro 100 unit/1 mL SUBCUT ×3 (11:30→20:49)
[2024-06-03 16:02] LABS: Glucose Point of Care 294 mg/dL (70-110)
--- NOTE | 2024-06-03 16:15 | PM.PN ---
Subjective Subjective: Patient was seen this morning, she is quite tearful this morning, she tells me that her life partner recently , she has been grieving the loss of her partner, currently she has a Thora vent in place, hooked to suction, denies any chest pain, palpitation, shortness or shortness of breath she is comfortable, we discussed her last hospitalization for which she was transferred to [facility] for recurrent pneumothorax however she tells me that nothing happened during that hospital hospitalization she never received a pleurodesis and eventually got discharged home, does report smoking, does report a cough Vitals/I&O/Wt Last Vital Signs Temp 97.4 F L 06/03/24 16:00 Pulse 62 06/03/24 16:00 Resp 17 06/03/24 16:00 BP 113/66 06/03/24 16:00 Pulse Ox 90 06/03/24 15:31 O2 Del Method Nasal Cannula 06/03/24 15:31 O2 Flow Rate 3 06/03/24 14:07 06/03/24 06/03/24 06/03/24 06:59 14:59 22:59 Intake Total 520 / 770 170 / 170 Balance 520 / 770 170 / 170 Weight last 48 hrs Weight 130.907 kg Weight 130.635 kg Weight 130.635 kg Physical Exam Const: COMMON NORMALS: no acute distress and patient oriented x3 Chest: OTHER: Right for event in place Resp: COMMON NORMALS: normal respiratory effort, No retractions, No use of accessory muscles and clear to auscultation bilaterally AUSCULTATION: clear to auscultation bilaterally Cardio: COMMON NORMALS: regular rate, regular rhythm, S1 normal heart sound present and S2 normal heart sound present RATE: regular rate RHYTHM: regular rhythm HEART SOUNDS: S1 normal heart sound present and S2 normal heart sound present GI: COMMON NORMALS: Normal to inspection, nondistended, normoactive bowel sounds present and non-tender Extremity: COMMON NORMALS: no pedal edema Neuro: COMMON NORMALS: patient oriented x3 Psych: COMMON NORMALS: mental status grossly normal Data 06/03/24 06:50 06/03/24 06:50 Micro: Microbiology 06/03/24 06:46 Blood Culture - Preliminary Blood SPECIMEN COLLECTED 06/03/24 06:46 Blood Culture - Preliminary Blood SPECIMEN COLLECTED 06/02/24 21:15 Blood Culture - Preliminary Blood SPECIMEN COLLECTED 06/02/24 21:11 Blood Culture - Preliminary Blood SPECIMEN COLLECTED A&P Assessment and plan (1) COPD exacerbation: (2) Pneumothorax: Qualifiers: Pneumothorax type: spontaneous, primary Qualified Code(s): J93.11 - Primary spontaneous pneumothorax (3) Acute on chronic hypoxic respiratory failure: Plan Alissa Beck is a 63 yo woman w/ Sjogen's Syndrome, inflammatory arthritis, mononeuritis multiplex, IDDM2, chronic HFpEF, Emphysema, JOSE MARIA on CPAP w/ 2L bled in at night who presented to the ED on 06/02/2024 w/ complaints of disequilibrium such that she felt wobbly and could hardly walk. She is admitted for a recurrent PTX. #Acute on chronic Hypoxic Respiratory Failure: -Secondary to COPD -Secondary to right chest pneumothorax -Secondary to pneumonia # Right chest pneumothorax -With history of 2 pneumothorax in the past, -Was transferred November 2023 for recurrent pneumothorax for consideration of pleurodesis, as per review of records was medically managed, with the chest tube and subsequent removal -There was concerns for Sjogren's interstitial lung disease as an etiology -Status post Thora vent placement, currently on suction -Daily chest x-ray -CT of the chest -General Surgery on consult for chest tube management -Hold off on CPAP and positive pressure ventilation #Acute COPD exacerbation: -Continue Solu-Medrol 40 IV every 12 hours #SIRS vs Sepsis #Possible R. sided pneumonia -Continue vancomycin -Zosyn -Follow blood cultures -Follow sputum cultures #JOSE MARIA on CPAP: Hold off on CPAP #chronic HFpEF -Appears euvolemic continue Lasix 40 twice daily #Paroxysmal Afib -Anticoagulation on Lovenox #HTN #HLD #PVD - On Telemetry. Full dose Lovenox ordered - Further management per day hospitalist. #IDDM2 w/ diabetic neuroathy -Lantus 40 units daily -Monitor sliding scale #Sjogen's Syndrome, inflammatory arthritis, mononeuritis multiplex - Defer re-initiation of meds to the day hospitalist. #Bipolar II -Home medications #Insomnia -Continue Ambien #Tobacco & Cannabis use d/o #L. adrenal adnemoma #Thyroid nodule Attestations Medical Necessity Statement*: Patient requires hospitalization for right pneumothorax, COPD, pneumonia Diagnoses COPD exacerbation J44.1 Primary spontaneous pneumothorax J93.11 Pneumothorax type: spontaneous, primary Acute on chronic hypoxic respiratory failure J96.21
[2024-06-03] MEDS: FUROsemide 40 mg Tablet PO (17:10)
[2024-06-03] MEDS: vancomycin 2,000 MG/400 ML PIGGYBACK 200 MG IV (17:10)
--- NOTE | 2024-06-03 18:05 | PC.NURSE ---
Shift summary: Pt remains on 2lpm/NC. Auscultated lung sounds are clear and diminished. No changes throughout the shift. Thoravent patent and intact, to dry chamber suction. Yellow drainage noted in tube but none in chamber at this time. She dozes off in middle of conversations. She has an excellent appetite. Has sipped coffee and/or soda all afternoon. Blood sugars greater than 270mg/dl at lunch and dinner. She urinated twice this shift. she can bear her own weight. She uses a cane. She shuffles on the onset but it gets better. Pain meds admin once for chest pain (thoravent). CT of chest completed today.
--- NOTE | 2024-06-03 20:15 | XRR_ITS ---
PROCEDURE INFORMATION: Exam: XR Chest Exam date and time: 06/03/2024 8:21 PM Age: 63 years old Clinical indication: Pain and device placement; Other: Chest tube pain; Additional info: Pain with chest tube TECHNIQUE: Imaging protocol: Radiologic exam of the chest. Views: 1 view. COMPARISON: CT chest [facility] [id number] 06/03/2024 11:01 AM FINDINGS: Lungs: Left lower lobe atelectasis versus infiltrate. Pleural spaces: Unremarkable. No pleural effusion. No pneumothorax. Heart/Mediastinum: Cardiomegaly and pulmonary vascular congestion. Bones/joints: Unremarkable. XR/XR chest 1V portable [id number] IMPRESSION: 1. Left lower lobe atelectasis versus infiltrate. 2. Cardiomegaly and pulmonary vascular congestion.
[2024-06-03] MEDS: atorvastatin 40 mg Tablet 20 MG PO (20:26)
[2024-06-03] MEDS: gabapentin 300 mg Capsule 600 MG PO (20:26)
[2024-06-03 20:48] LABS: Glucose Point of Care 390 mg/dL (70-110)
[2024-06-03] MEDS: CLONazepam 0.5 mg Tablet PO (20:49)
--- NOTE | 2024-06-03 20:58 | P.CONIM_ITS ---
Providers/Reason For Consult 2 Consulting Physician/Specialty*: Dr. Manolo Fields, DO/General Surgery Reason for Consult*: Right pneumothorax Attending Physician: Blayne Cuevas MD Primary Care Provider: LILLIE Pleitez History of Present Illness History of Present Illness This is a very pleasant 63-year-old female who presented to the hospital with COPD, A-fib, CHF and recurrent spontaneous pneumothorax, on CPAP at night, presented to the hospital with new onset weakness. Imaging revealed a right sided pneumothorax. ER physician called me and I recommended a Thora vent be placed. After placement, imaging revealed that the pneumothorax significantly reduced. Patient reports that she is feeling much better. She does have a cough which is typical of her COPD. She denies fever or chills. The right sided Thora vent is currently hooked up to wall suction via pneumoVAC. I saw the patient earlier in the day. Radiologist believes that the tip of the Thora vent may be inside the lung parenchyma. Pneumovax shows only a very minimal and infrequent small air leak while on suction. I readjusted the Thora vent and repeat imaging shows no residual pneumothorax but possible left lower infiltrate. She is already on Zosyn and vancomycin. Review of Systems 2 General: Reports: 10 or more systems reviewed and unremarkable except in HPI and below Medications/Allergies Home Medications Medication Instructions Recorded Confirmed Last Taken Type blood sugar diagnostic (Blood #100 ea 06/30/19 06/03/24 Unknown Rx Glucose Test strips) blood-glucose meter (Blood Glucose #1 ea 01/22/20 06/03/24 Unknown Rx Monitoring kit) flash glucose scanning reader #1 ea 08/01/20 06/03/24 Unknown Rx (FreeStyle Jack 2 [place]) flash glucose sensor (FreeStyle #2 ea 08/01/20 06/03/24 Unknown Rx Jack 2 Sensor kit) oxygen-air delivery systems 01/17/22 06/03/24 Unknown History pen needle, diabetic 32 gauge x #100 ea 02/15/22 06/03/24 Unknown Rx (BD Ultra-Fine Corine Pen Needle) acetaminophen 325 mg tablet 325 mg PO QID PRN Pain 11/19/22 06/03/24 Unknown History diphenhydramine HCl 25 mg tablet 25 mg PO TID PRN Allergy Symptoms 11/19/22 06/03/24 Unknown History (Benadryl Allergy) ibuprofen 200 mg tablet 200 mg PO Q6H PRN Pain 11/19/22 06/03/24 Unknown History nebulizer and supplies #1 ea 02/14/23 06/03/24 Unknown Rx afflovest #1 ea 02/26/23 06/03/24 Unknown Rx back brace #1 ea 04/15/23 06/03/24 Unknown Rx DC Home Health #1 ea 06/18/23 06/03/24 Unknown Rx CPAP (Standard Cpap) 08/07/23 06/03/24 Unknown History albuterol sulfate 2.5 mg/3 mL 2.5 mg inhalation Q6H PRN 12/04/23 06/03/24 Unknown History (0.083 %) solution for nebulization Shortness Of Breath Or Wheezing albuterol sulfate 90 mcg/actuation 2 puff inhalation Q8H PRN 12/04/23 06/03/24 Unknown History aerosol inhaler Shortness Of Breath Or Wheezing insulin glargine 100 unit/mL (3 75 unit (0.75 mL) SUBCUT QAM #67.5 12/16/23 06/03/24 Unknown Rx mL) subcutaneous pen (Lantus mL Solostar U-100 Insulin) insulin regular human 100 unit/mL 20 unit (0.2 mL) SUBCUT TID #54 mL 12/16/23 06/03/24 06/02/24 Rx (3 mL) subcutaneous pen (Novolin R FlexPen) pilocarpine HCl 5 mg tablet 5 mg PO TID #90 tabs 12/18/23 06/03/24 06/02/24 Rx atorvastatin 20 mg tablet 20 mg PO BEDTIME #90 tabs 01/08/24 06/03/24 06/01/24 Rx furosemide 40 mg tablet 40 mg PO BID #180 tabs 01/09/24 06/03/24 06/02/24 Rx lisinopril 40 mg tablet 40 mg PO DAILY #90 tabs 01/09/24 06/03/24 06/02/24 Rx potassium chloride 20 mEq 20 meq PO DAILY #90 tabs 01/09/24 06/03/24 06/02/24 Rx tablet,extended release rivaroxaban 20 mg tablet (Xarelto) 20 mg PO DAILY #90 tabs 01/09/24 06/03/24 06/02/24 Rx spironolactone 50 mg tablet 50 mg PO DAILY #90 tabs 01/09/24 06/03/24 06/02/24 Rx modafinil 200 mg tablet 200 mg PO QAM #30 tabs 01/28/24 06/03/24 06/02/24 Rx hydroxychloroquine 200 mg tablet 200 mg PO BID #180 tabs 03/16/24 06/03/24 06/02/24 Rx prednisone 5 mg tablet 5 mg PO DAILY #90 tabs 04/22/24 06/03/24 06/02/24 Rx aripiprazole 10 mg tablet (Abilify) 10 mg PO DAILY #30 tabs 04/30/24 06/03/24 06/02/24 Rx bupropion HCl 300 mg 24 hr tablet, 300 mg PO QAM #30 tabs 04/30/24 06/03/24 06/02/24 Rx extended release (Wellbutrin XL) clonazepam 0.5 mg tablet 0.5 mg PO BID PRN anxiety #60 tabs 04/30/24 06/03/24 Unknown Rx sertraline 100 mg tablet (Zoloft) 150 mg (1.5 x 100 mg) PO DAILY #45 04/30/24 06/03/24 06/02/24 Rx tabs zolpidem 5 mg tablet (Ambien) 5 mg PO BEDTIME PRN sleep #30 tabs 04/30/24 06/03/24 Unknown Rx nitroglycerin 0.4 mg sublingual 0.4 mg sublingual Q5M PRN chest 05/21/24 06/03/24 Unknown Rx tablet (Nitrostat) pain #25 tabs doxycycline monohydrate 100 mg 100 mg PO BID 7 days #14 caps 05/27/24 06/03/24 06/02/24 Rx capsule budesonide-formoterol HFA 160 2 puff inhalation BID 06/03/24 06/03/24 Unknown History mcg-4.5 mcg/actuation aerosol inhaler (Symbicort) cholecalciferol (vitamin D3) 1,250 1,250 mcg PO Q7D 06/03/24 06/03/24 05/29/24 History mcg (50,000 unit) capsule fluconazole 150 mg tablet 150 mg PO Q3D PRN symptoms from abx 06/03/24 06/03/24 Unknown History fluticasone propionate 50 2 spray intranasal DAILY PRN 06/03/24 06/03/24 06/02/24 History mcg/actuation nasal allergies spray,suspension (Flonase Allergy Relief) gabapentin 600 mg tablet 600 mg PO TID 06/03/24 06/03/24 06/02/24 History ipratropium 20 mcg-albuterol 100 1 puff inhalation Q6H PRN 06/03/24 06/03/24 Unknown History mcg/actuation mist for inhalation Shortness Of Breath (Combivent Respimat) metoprolol succinate 25 mg 25 mg PO DAILY 06/03/24 06/03/24 06/02/24 History tablet,extended release 24 hr umeclidinium 62.5 mcg/actuation 1 inh inhalation DAILY 06/03/24 06/03/24 06/02/24 History blister powder for inhalation (Incruse Ellipta) Allergies Allergy/AdvReac Type Severity Reaction Status Date / Time Sulfa (Sulfonamide Allergy Unknown Unknown Verified 06/02/24 19:13 Antibiotics) quinine [From Quine] Allergy unknown Verified 06/02/24 19:13 ropinirole [From Requip] Allergy Unknown Verified 06/02/24 19:13 Current Medications Generic Name Dose Route Start Last Admin Trade Name Freq PRN Reason Stop Dose Admin Hydrocodone Bitart/Acetaminophen 1 tab 06/03/24 06:02 06/03/24 20:26 Hydrocodone-Acetaminophen 5-325 Mg Tablet PO 1 tab Q4H PRN Administration MODERATE TO SEVERE PAIN Albuterol/Ipratropium 3 ml 06/03/24 08:00 06/03/24 20:52 Ipratropium-Albuterol 3 Ml Neb INHALATION 3 ml Q6H.RESP MAXIMILIANO Administration Atorvastatin Calcium 20 mg 06/03/24 21:00 06/03/24 20:26 Atorvastatin 40 Mg Tablet PO 20 mg BEDTIME MAXIMILIANO Administration Clonazepam 0.5 mg 06/03/24 16:39 06/03/24 20:49 Clonazepam 0.5 Mg Tablet PO 0.5 mg BID PRN Administration anxiety Enoxaparin Sodium 130 mg 06/03/24 09:00 06/03/24 09:43 Enoxaparin 150 Mg/Ml Syringe SUBCUT 130 mg Q12H MAXIMILIANO Administration Furosemide 40 mg 06/03/24 18:00 06/03/24 17:10 Furosemide 40 Mg Tablet PO 40 mg BID MAXIMILIANO Administration Gabapentin 600 mg 06/03/24 21:00 06/03/24 20:26 Gabapentin 300 Mg Capsule PO 600 mg TID MAXIMILIANO Administration Piperacillin Sod/Tazobactam 50 mls @ 12.5 mls/hr 06/03/24 06:15 06/03/24 20:24 Sod 3.375 gm/ Sodium Chloride IV Infused Q8H MAXIMILIANO Infusion Protocol Vancomycin HCl 2,000 mg in 400 mls @ 200 mls/hr 06/03/24 17:00 06/03/24 20:24 Vancocin IV Infused Q12H MAXIMILIANO Infusion Insulin Glargine 40 unit 06/03/24 09:00 06/03/24 09:44 Insulin Glargine 100 Units/1 Ml SUBCUT 40 unit DAILY MAXIMILIANO Administration Insulin Human Lispro 0 unit 06/03/24 08:00 06/03/24 17:10 Insulin Lispro 100 Unit/1 Ml SUBCUT 8 unit TIDWM MAXIMILIANO Administration Protocol Insulin Human Lispro 0 unit 06/03/24 21:00 06/03/24 20:49 Insulin Lispro 100 Unit/1 Ml SUBCUT 7 unit BEDTIME MAXIMILIANO Administration Protocol Pantoprazole Sodium 40 mg 06/03/24 07:00 06/03/24 06:[address] 40 Mg Tablet PO 40 mg ACBREAKFAST MAXIMILIANO Administration Senna 17.2 mg 06/03/24 09:00 06/03/24 09:44 Sennosides 8.6 Mg Tablet PO 17.2 mg DAILY MAXIMILIANO Administration PFSH Acute 2 PFSH: Medical History Primary Sjogren's syndrome Lower extremity weakness Positive AMI (antinuclear antibody) Disorders of diaphragm Atelectasis of both lungs CHF (congestive heart failure), NYHA class III Drug-induced myopathy Recurrent pneumonia Emphysema lung Encephalopathy acute Acute and chronic respiratory failure with hypercapnia UTI (urinary tract infection) due to Enterococcus Excessive daytime sleepiness Diabetes type 2, controlled Insomnia Gross hematuria UTI (urinary tract infection) Psychiatric care Essential (primary) hypertension Chronic obstructive pulmonary disease with (acute) exacerbation Polyneuropathy, unspecified Callus Porokeratosis PVD (peripheral vascular disease) Shortness of Breath Bilateral leg edema Angina pectoris 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 with no history of malignant neoplasm AF (paroxysmal atrial fibrillation) Hypertension Tobacco abuse disorder Uncontrolled type 2 diabetes mellitus with polyneuropathy Acute DM type 2 causing complication Cannabis dependence, uncomplicated Sleep apnea Nicotine dependence, cigarettes, with other nicotine-induced disorders Bipolar II disorder Post-traumatic stress disorder, chronic Surgical History H/O chest tube placement History of hysterectomy History of cholecystectomy History of appendectomy History of hernia repair Family History Father , AT AGE 21 Gunshot wound Mother , AT AGE 61 CAD (coronary artery disease) Other Cancer Diabetes Stroke Social History Smoking and tobacco/nicotine status: current every day tobacco/nicotine user cigarettes Packs smoked per day: 1.5 Years cigarettes smoked: 52 [ Other cigarette details: Started at age 10] Second hand smoke exposure: Yes Alcohol intake: current Alcohol intake frequency: holidays/special occasions only Alcohol type: other Substance/Drug Use: former Date of last use: 2020 Adopted: No Caregiver/support person: No Lives independently: Yes Household members: significant other Housing: Manufactured/Mobile home Marital status: Life Partner Number of children: 0 Number of grandchildren: 0 Highest education level completed: Some College, No Degree service: No Current occupational status: disabled 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 Current occupational exposures/hazards: No Pets and animals: Yes (3 dogs) Pets & animals: dog(s) Leisure activites: fishing and other Leisure activities details: sewing, writing, gardening Sexually active: Yes How many partners: 1 Do you think of yourself as: Lesbian/Gautam/Homosexual Current gender identity: Female Latha/Jain: Protestant Special latha needs: No Agree to transfusion: Yes Female Reproductive History: Para: 0 Spontaneous abortions: No Vitals/I&O/Wt Last Vital Signs Temp 98.3 F 06/03/24 19:55 Pulse 86 06/03/24 20:54 Resp 18 06/03/24 20:54 BP 116/63 06/03/24 19:55 Pulse Ox 94 06/03/24 20:54 O2 Del Method Nasal Cannula 06/03/24 20:54 O2 Flow Rate 3 06/03/24 20:54 06/03/24 06/03/24 06/03/24 06:59 14:59 22:59 Intake Total 520 / 770 170 / 170 570 / 740 Balance 520 / 770 170 / 170 570 / 740 Weight last 48 hrs Weight 288 lb 9.6 oz Weight 288 lb Weight 288 lb Physical Exam 2 Narrative: General : Patient is well developed , no acute distress, oriented x3 Head : Normal cephalic, a-traumatic. Ears : Pinnae and external canal are normal. Hearing is normal. Eyes : PERRLA, Sclera and injection are normal. No conjunctival discharge. Nose : Mucous membranes are without erythema. Throat : buccal mucosa is normal, gums are without significant recession or hypertrophy. Lungs : Equal chest rise bilaterally, no use of accessory muscles, trachea is midline. Pneumovac- tiniest infrequent airleak with valsalva Cor : Rate and rhythm are normal. Abdomen : Soft, ND, NT, no g/r/m Extremities : No edema, no cyanosis or clubbing, dorsalis pedis pulses are present bilaterally, non-tender to palpation of calves. Upper extremities are normal bilaterally. Back : non-tender to palpation, no CVA tenderness. Neuro : CN II - XII intact, Upper and lower extremities have equal and full strength Data 06/03/24 06:50 06/03/24 06:50 Micro: Microbiology 06/03/24 06:46 Blood Culture - Preliminary Blood SPECIMEN COLLECTED 06/03/24 06:46 Blood Culture - Preliminary Blood SPECIMEN COLLECTED 06/02/24 21:15 Blood Culture - Preliminary Blood SPECIMEN COLLECTED 06/02/24 21:11 Blood Culture - Preliminary Blood SPECIMEN COLLECTED A&P Assessment and plan (1) Recurrent spontaneous pneumothorax: (2) COPD with acute exacerbation: (3) Pneumothorax on right: Plan R thoravent in place on wall suction Possible LLL pneumonia vs. atelectasis Continue abx per primary maintain wall suction supplemental O2 repeat CXR in AM will follow medical management per primary Coding Level of Care Code 01615 Diagnoses Recurrent spontaneous pneumothorax J93.83 COPD with acute exacerbation J44.1 Pneumothorax on right J93.9
--- NOTE | 2024-06-03 20:58 | PC.NURSE ---
During bedside report, thoravent noted to be protruding a couple of inches above the chest. Day shift nurse and patient stated that Dr. Fields had adjusted it today to that position. Patient noted to be in mild pain during bedside report. Approximately 20:15, patient was heard yelling. This nurse walked in room and patient was c/o severe pain to area of thoravent and was tearful. Tube from throavent to patient appeared to be moving significantly when patient would cough. Dr. Fields notified and stat chest x-ray ordered. VSS and oxygen saturation WNL on 2 liters nasal cannula. Patient given PRN [place] and PRN Clonidine. Patient now appears to be much calmer and is no longer in distress. Patient states sorry I got so upset, it just hurts. Dr. Fields notified of chest x-ray result. Ordered to ensure throavent is taped down well to patient's chest.
[2024-06-04] VITALS (16 sets, daily range): BP systolic 108–142; BP diastolic 57–73; PULSE 51–65; RESP 15–20; TEMP 36.4–36.8; O2SAT 89–96
[2024-06-04] MEDS: ipratropium-albuterol 3 mL Neb INHALATION ×4 (01:26→20:01)
[2024-06-04] MEDS: vancomycin 2,000 MG/400 ML PIGGYBACK 200 MG IV ×2 (04:09→17:23)
[2024-06-04] MEDS: methylPREDNISolone sod succ 40 mg/mL INJ IVP ×2 (04:09→15:46)
[2024-06-04 04:49] LABS: Bacillus cereus group Not Detected (NOT DETECT); Bacillus subtillis group Not Detected (NOT DETECT); Corynebacterium Not Detected (NOT DETECT); Cutibacterium acnes (P.acnes) Not Detected (NOT DETECT); Enterococcus Not Detected (NOT DETECT); Enterococcus faecalis Not Detected (NOT DETECT); Enterococcus faecium Not Detected (NOT DETECT); Lactobacillus species Not Detected (NOT DETECT); Listeria Not Detected (NOT DETECT); Listeria monocytogenes Not Detected (NOT DETECT); Micrococcus Not Detected (NOT DETECT); Pan Candida Not Detected (NOT DETECT); Pan Gram-Negative Not Detected (NOT DETECT); Staphylococcus epidermidis Detected (NOT DETECT); Staphylococcus lugdunensis Not Detected (NOT DETECT); Staphylococcus species Detected (NOT DETECT); Streptococcus agalactiae Not Detected (NOT DETECT); Streptococcus anginosus group Not Detected (NOT DETECT); Streptococcus pneumoniae Not Detected (NOT DETECT); Streptococcus pyogenes Not Detected (NOT DETECT); Streptococcus species Not Detected (NOT DETECT); mecA Detected (NOT DETECT); mecC Not Detected (NOT DETECT)
[2024-06-04 06:06] LABS: Glucose Point of Care 363 mg/dL (70-110)
[2024-06-04] MEDS: piperacillin-tazobactam 3.375 GM in sodium chloride 0.9% (plus) 50 ML IV ×3 (06:10→22:17)
[2024-06-04] MEDS: pantoprazole DR 40 mg Tablet PO (06:15)
[2024-06-04] MEDS: HYDROcodone-acetaminophen 5-325 mg Tablet 1 TAB PO ×2 (06:15→14:00)
--- NOTE | 2024-06-04 07:00 | XR_ITS ---
WS: [id number] Portable AP upright chest, inspiration and expiration views, 06/04/2024 Clinical Data: sob Comparison: Portable chest, 06/03/2024 Findings: There is a small chest tube in the upper right pleural space unchanged. No recurrent pneumo thorax is present. Bilateral lung opacities remain the same. The heart is at the upper limits of norm al. The aortic arch shows tortuosity. No effusions are seen. XR/XR chest 1V portable [id number] Impression: 1. No change in right chest tube and no pneumothorax. 2. No change in bilateral lung opacities with greatest opacity in the left lowe r lobe. 3. Atherosclerosis.
--- NOTE | 2024-06-04 07:45 | P.PN_ITS ---
Subjective 2 Subjective: Patient had a hard coughing fit overnight and reports that her Thora vent popped out and went back in. She reports that she seems to be breathing fine and having minimal pain at the site. Vitals/I&O/Wt Last Vital Signs Temp 97.5 F L 06/05/24 08:00 Pulse 51 L 06/05/24 08:00 Resp 18 06/05/24 08:00 BP 143/92 06/05/24 08:00 Pulse Ox 91 06/05/24 08:00 O2 Del Method Nasal Cannula 06/05/24 08:00 O2 Flow Rate 3 06/05/24 08:00 06/04/24 06/05/24 06/05/24 22:59 06:59 14:59 Intake Total 690 / 1336 50 / 1386 254 / 254 Balance 690 / 1336 50 / 1386 254 / 254 Weight last 48 hrs Weight 288 lb Weight 288 lb Physical Exam 2 Narrative: General: No acute distress, awake alert and oriented x 3 Chest: Equal chest rise bilaterally, no use of accessory muscles, this morning's chest x-ray appears to show the Thora vent outside of her thoracic cavity. There is no air leak on suction or tidaling on waterseal Data 06/05/24 04:05 06/05/24 04:05 Micro: Microbiology 06/04/24 16:28 Blood Culture - Preliminary Blood SPECIMEN COLLECTED 06/04/24 16:23 Blood Culture - Preliminary Blood SPECIMEN COLLECTED 06/03/24 06:46 Blood Culture - Preliminary Blood NEGATIVE TO DATE 06/02/24 21:15 Blood Culture - Preliminary Blood NEGATIVE TO DATE 06/02/24 21:11 Blood Culture - Preliminary Blood NEGATIVE TO DATE 06/03/24 06:46 Blood Culture - Preliminary Blood Staphylococcus epidermidis A&P Assessment and plan (1) Recurrent spontaneous pneumothorax: (2) COPD with acute exacerbation: (3) Pneumothorax on right: Plan Thoravent was removed during Valsalva and a nonocclusive dressing was placed Chest x-ray in 4 hours medical management per primary Attestations 2 Medical Necessity Statement*: Per primary Coding Level of Care Code 27948 Diagnoses Recurrent spontaneous pneumothorax J93.83 COPD with acute exacerbation J44.1 Pneumothorax on right J93.9
--- NOTE | 2024-06-04 07:50 | PHA.VACGOAL ---
Vancomycin Goal - Goal Vancomycin Goal:: 15-20 mg/L Vancomycin Indication:: Pneumonia - Therapy Current therapy:: Pip/Tazo Day of therpy:: Day [2]of [] . Actual body weight (kg): 130.635 kg - Data Labs: WBC 10.98 10^3/uL (3.29-11.43) 06/03/24 06:50 RBC 4.97 10^6/uL (3.85-5.65) 06/03/24 06:50 Hgb 13.80 g/dL (11.27-16.99) 06/03/24 06:50 Hct 45.2 % (36-47) 06/03/24 06:50 MCV 90.9 fl (85-98) D 06/03/24 06:50 MCH 27.8 pg (27-33) 06/03/24 06:50 MCHC 30.5 g/dL (30-55) D 06/03/24 06:50 RDW 13.1 % (12.1-15.1) 06/03/24 06:50 Sodium 132 mmol/L (136-145) L 06/03/24 06:50 Potassium 4.4 mmol/L (3.5-5.1) 06/03/24 06:50 Chloride 98 mmol/L (98-107) 06/03/24 06:50 Carbon Dioxide 23 mmol/L (22-29) 06/03/24 06:50 Anion Gap 15.4 (5-19) 06/03/24 06:50 BUN 27 mg/dL (8-23) H 06/03/24 06:50 Creatinine 1.0 mg/dL (0.5-0.9) H 06/03/24 06:50 GFR Calculation 56.0 mL/min (90-130) L 06/03/24 06:50 Treatment plan:: new consult Regimen:: New start vancomycin for pneumonia. Started on maintenance dose of 2000 mg q12h based on population based pharmacokinetic nomogram. Trough ordered prior to 4th maintenance dose @0400 06/05/24.
[2024-06-04 08:01] LABS: Basophils % 0.3 %; Eosinophils # 0.1 10^3/uL (0.0-0.8); Eosinophils % 0.9 %; Hematocrit 42.9 % (36-47); Lymphocytes # 0.8 10^3/uL (0.8-4.8); Lymphocytes % 6.7 %; Mean Corpuscular HGB Conc 31.9 g/dL (30-55); Mean Corpuscular Hemoglobin 27.4 pg (27-33); Mean Corpuscular Volume 85.8 fl (85-98); Mean Platelet Volume 9.7 fL (7.4-10.4); Monocytes # 0.3 10^3/uL (0.2-0.9); Monocytes % 2.8 %; Neutrophils # 9.91 10^3/uL (1.8-7.7); Neutrophils % 88.7 %; Nucleated Red Blood Cells % 0 %; Platelet Count 240 10^3/cmm (157-399); White Blood Count 11.17 10^3/uL (3.29-11.43)
[2024-06-04 08:19] LABS: Alanine Aminotransferase 10 U/L (0-33); Albumin Level 3.7 g/dL (3.5-5.2); Alkaline Phosphatase 84 U/L (35-105); Anion Gap 17.8 (5-19); Aspartate Amino Transferase 8 U/L (0-32); Blood Urea Nitrogen 29 mg/dL (8-23); Calcium 9.3 mg/dL (8.5-10.5); Carbon Dioxide 23 mmol/L (22-29); Chloride 96 mmol/L (98-107); Creatinine Clr Calc Pharmacy 84.8614; Globulin 2.6 g/dL (1.3-4.6); Glucose 364 mg/dL (65-115); Magnesium 1.7 mg/dL (1.7-2.3); Osmolality Calculated 295 mOsm/kg (285-295); Phosphorus 3.5 mg/dL (2.5-4.5); Potassium 4.8 mmol/L (3.5-5.1); Sodium 132 mmol/L (136-145); Total Bilirubin 0.2 mg/dL (0.15-1.2); Total Protein 6.3 g/dL (6.6-8.7)
[2024-06-04 08:27] LABS: NT Pro B Type Natriuretic Pept 294 pg/mL (0-125); Procalcitonin 0.03 ng/mL (0-0.5)
[2024-06-04] MEDS: gabapentin 300 mg Capsule 600 MG PO ×3 (08:28→21:48)
[2024-06-04] MEDS: lisinopril 20 mg Tablet 40 MG PO (08:28)
[2024-06-04] MEDS: sertraline 100 mg Tablet 150 MG PO (08:28)
[2024-06-04] MEDS: ARIPiprazole 10 mg Tablet PO (08:28)
[2024-06-04] MEDS: spironolactone 25 mg Tablet 50 MG PO (08:28)
[2024-06-04] MEDS: sennosides 8.6 mg Tablet 17.2 MG PO (08:29)
[2024-06-04] MEDS: insulin lispro 100 unit/1 mL SUBCUT ×4 (08:29→21:50)
[2024-06-04] MEDS: FUROsemide 40 mg Tablet PO ×2 (08:29→17:23)
[2024-06-04] MEDS: metoprolol succinate ER (24 HR) 25 mg Tablet PO (08:29)
[2024-06-04] MEDS: potassium chloride ER 20 mEq Tablet PO (08:29)
[2024-06-04 08:35] LABS: C Reactive Protein 13.6 mg/L (0.0-4.9)
[2024-06-04] MEDS: insulin glargine 100 units/1 mL 40 UNIT SUBCUT (08:36)
[2024-06-04] MEDS: enoxaparin 150 mg/mL Syringe 130 MG SUBCUT (09:27)
[2024-06-04 11:16] LABS: Glucose Point of Care 392 mg/dL (70-110)
--- NOTE | 2024-06-04 12:00 | XR_ITS ---
WS: [id number] Portable AP upright chest, 06/04/2024, 1204 hours Clinical Data: S/P THORAVENT REMOVAL Comparison: Portable chest, 06/04/2024, 0659 hours Findings: No recurrent pneumothorax is seen. The heart and lungs show no change from earlier this clyde vega. XR/XR chest 1V portable [id number] Impression: Satisfactory removal of small right chest tube.
--- NOTE | 2024-06-04 15:20 | USCV_ITS ---
Alissa Beck Age: 63 Gender: F : 1960 Exam Date: 06/04/2024 18:48 Ordering Phys: Blayne Cuevas MD Technologist: TITO [place] [facility] [place]: evaluate for endocarditis history of CHF, drug- induced CM, COPD, tobacco addiction BP: 115 / 57 HR: 58 Rhythm: Sinus Technical Quality: Adequate MEASUREMENTS (Male / Female) Normal Values 2D ECHO LV Diastolic Diameter PLAX 4.4 cm 4.2 - 5.9 / 3.9 - 5.3 cm IVS Diastolic Thickness 1.9 cm 0.6 - 1.0 / 0.6 - 0.9 cm IVS Systolic Thickness 2.3 cm LVPW Diastolic Thickness 1.8 cm 0.6 - 1.0 / 0.6 - 0.9 cm LVPW Systolic Thickness 2.0 cm LVOT Diameter 1.9 cm LV Ejection Fraction 2D Teich 67.4 % LV Ejection Fraction MOD 4C 58.4 % LV Ejection Fraction MOD 2C 70.8 % LV Ejection Fraction 2C AL 74.8 % LA Diameter 4.9 cm Aorta at Sinotubular Diameter 3.2 cm IVC Diameter 1.6 cm M-MODE LA Ao Ratio MM 1.6 AV Cusp Separation MM 2.4 cm DOPPLER AV Peak Velocity 184.0 cm/s LVOT Peak Velocity 133.0 cm/s AV Area Cont Eq vti 2.7 cm squared AV Area Cont Eq pk 2.1 cm squared MV Peak Velocity 153.0 cm/s MV Area PHT 2.3 cm squared Mitral E to A Ratio 1.3 TV Peak Velocity 226.0 cm/s TR Peak Velocity 248.0 cm/s TR Peak Gradient 24.6 mmHg TV Peak E Velocity 61.0 cm/s PV Peak Velocity 158.0 cm/s FINDINGS Left Ventricle Left ventricle is normal in size. LV systolic function is normal with EF of 60 to 65%. No regional wall motion abnormalities are seen. Right Ventricle Normal in size and function Right Atrium Normal in size Left Atrium Dilated Mitral Valve Moderate to severe mitral annular calcification seen. Mild mitral regurgitation. Aortic Valve Structurally normal aortic valve. No significant stenosis or regurgitation. Tricuspid Valve Mild tricuspid regurgitation. Insufficient TR jet to calculate RVSP Pulmonic Valve Not well visualized Pericardium Normal Aorta Normal in size IVC Appears to be normal CONCLUSIONS LV systolic function is normal with EF of 60-65%. Left atrial dilation. Moderate to severe mitral annular calcification Mild mitral regurgitation. Mild tricuspid regurgitation. Mo Adamson MD (Electronically Signed) Final Date: 05 June 2024 08:35 S
--- NOTE | 2024-06-04 15:38 | P.PN_ITS ---
Subjective 2 Subjective: Patient was seen this morning, she is sitting up in a chair, denies any fevers, chills, no cough, no abdominal pain, her Thora vent has been removed Vitals/I&O/Wt Last Vital Signs Temp 97.8 F 06/04/24 15:27 Pulse 57 L 06/04/24 15:27 Resp 15 06/04/24 15:27 BP 115/57 06/04/24 15:27 Pulse Ox 93 06/04/24 15:27 O2 Del Method Nasal Cannula 06/04/24 15:27 O2 Flow Rate 3 06/04/24 13:20 06/04/24 06/04/24 06/04/24 06:59 14:59 22:59 Intake Total 810 / 2030 646 / 646 Output Total 2900 / 2900 Balance -2090 / -870 646 / 646 Weight last 48 hrs Weight 130.635 kg Weight 130.907 kg Weight 130.635 kg Weight 130.635 kg Physical Exam 2 Const: COMMON NORMALS: no acute distress and patient oriented x3 Chest: OTHER: Thora vent site looks clean and dry Resp: COMMON NORMALS: normal respiratory effort, No retractions, No use of accessory muscles and clear to auscultation bilaterally AUSCULTATION: clear to auscultation bilaterally Cardio: COMMON NORMALS: regular rate, regular rhythm, S1 normal heart sound present and S2 normal heart sound present RATE: regular rate RHYTHM: r egular rhythm HEART SOUNDS: S1 normal heart sound present and S2 normal heart sound present GI: COMMON NORMALS: Normal to inspection, nondistended, normoactive bowel sounds present and non-tender Extremity: COMMON NORMALS: no pedal edema Neuro: COMMON NORMALS: patient oriented x3 Psych: COMMON NORMALS: mental status grossly normal Data 06/04/24 07:42 06/04/24 07:42 Micro: Microbiology 06/03/24 06:46 Blood Culture - Preliminary Blood Staphylococcus epidermidis A&P Assessment and plan (1) COPD exacerbation: (2) Pneumothorax: Qualifiers: Pneumothorax type: spontaneous, primary Qualified Code(s): J93.11 - Primary spontaneous pneumothorax (3) Acute on chronic hypoxic respiratory failure: (4) Staphylococcus epidermidis bacteremia: Plan Alissa Beck is a 63 yo woman w/ Sjogen's Syndrome, inflammatory arthritis, mononeuritis multiplex, IDDM2, chronic HFpEF, Emphysema, JOSE MARIA on CPAP w/ 2L bled in at night who presented to the ED on 06/02/2024 w/ complaints of disequilibrium such that she felt wobbly and could hardly walk. She is admitted for a recurrent PTX. # Staphylococcus epidermidis bacteremia -Seen in 3/4 blood cultures -No known artificial hardware, PICC line, midline, or port or Stanley catheter -She is afebrile, no signet leukocytosis -Recent Thora vent has been removed -Plan continue vancomycin -Repeat blood cultures -Follow closely #Acute on chronic Hypoxic Respiratory Failure: -Secondary to COPD -Secondary to right chest pneumothorax -Secondary to pneumonia # Right chest pneumothorax -With history of 2 pneumothorax in the past, -Was transferred November 2023 for recurrent pneumothorax for consideration of pleurodesis, as per review of records was medically managed, with the chest tube and subsequent removal -There was concerns for Sjogren's interstitial lung disease as an etiology -Status post Thora vent placement, with subsequent removal by general surgery -Daily chest x-ray -General Surgery on consult for chest tube management -Hold off on CPAP and positive pressure ventilation #Acute COPD exacerbation: -Continue Solu-Medrol 40 IV every 12 hours #SIRS vs Sepsis #Possible R. sided pneumonia -Continue vancomycin -Zosyn -Follow blood cultures -Follow sputum cultures #JOSE MARIA on CPAP: Hold off on CPAP #chronic HFpEF -Appears euvolemic continue Lasix 40 twice daily #Paroxysmal Afib -Anticoagulation on Lovenox #HTN #HLD #PVD - On Telemetry. Full dose Lovenox ordered - Further management per day hospitalist. #IDDM2 w/ diabetic neuroathy -Lantus 40 units daily -Monitor sliding scale #Sjogen's Syndrome, inflammatory arthritis, mononeuritis multiplex - Defer re-initiation of meds to the day hospitalist. #Bipolar II -Home medications #Insomnia -Continue Ambien #Tobacco & Cannabis use d/o #L. adrenal adnemoma #Thyroid nodule Attestations 2 Medical Necessity Statement*: Patient requires hospitalization for staphylococcal epidermidis bacteremia, pneumonia, pneumothorax Diagnoses COPD exacerbation J44.1 Primary spontaneous pneumothorax J93.11 Pneumothorax type: spontaneous, primary Acute on chronic hypoxic respiratory failure J96.21 Staphylococcus epidermidis bacteremia R78.81; B95.7
[2024-06-04 17:27] LABS: Glucose Point of Care 344 mg/dL (70-110)
[2024-06-04 20:51] LABS: Glucose Point of Care 406 mg/dL (70-110)
[2024-06-04] MEDS: atorvastatin 40 mg Tablet 20 MG PO (21:48)
[2024-06-04] MEDS: rivaroxaban 10 mg Tablet 20 MG PO (21:48)
[2024-06-05] VITALS (10 sets, daily range): BP systolic 129–154; BP diastolic 76–92; PULSE 51–90; RESP 12–19; TEMP 36.4–36.9; O2SAT 88–94; BMI 41.3
[2024-06-05] MEDS: ipratropium-albuterol 3 mL Neb INHALATION ×3 (01:58→13:55)
[2024-06-05 04:46] LABS: Basophils % 0.2 %; Eosinophils # 0.1 10^3/uL (0.0-0.8); Eosinophils % 0.5 %; Hematocrit 41.3 % (36-47); Lymphocytes # 1.4 10^3/uL (0.8-4.8); Lymphocytes % 11.8 %; Mean Corpuscular HGB Conc 32.4 g/dL (30-55); Mean Corpuscular Volume 86.4 fl (85-98); Mean Platelet Volume 9.5 fL (7.4-10.4); Monocytes # 0.7 10^3/uL (0.2-0.9); Monocytes % 6.1 %; Neutrophils # 9.57 10^3/uL (1.8-7.7); Neutrophils % 80.7 %; Nucleated Red Blood Cells % 0 %; Platelet Count 235 10^3/cmm (157-399); Red Blood Count 4.78 10^6/uL (3.85-5.65); Red Cell Distribution Width 13.1 % (12.1-15.1); White Blood Count 11.85 10^3/uL (3.29-11.43)
[2024-06-05 05:03] LABS: C Reactive Protein 8.8 mg/L (0.0-4.9)
[2024-06-05] MEDS: methylPREDNISolone sod succ 40 mg/mL INJ IVP (05:09)
[2024-06-05 05:14] LABS: Alanine Aminotransferase 9 U/L (0-33); Albumin Level 3.8 g/dL (3.5-5.2); Alkaline Phosphatase 79 U/L (35-105); Anion Gap 15.4 (5-19); Aspartate Amino Transferase 8 U/L (0-32); Blood Urea Nitrogen 31 mg/dL (8-23); Calcium 9.6 mg/dL (8.5-10.5); Carbon Dioxide 27 mmol/L (22-29); Chloride 97 mmol/L (98-107); Creatinine Clr Calc Pharmacy 84.8614; Globulin 2.1 g/dL (1.3-4.6); Glucose 238 mg/dL (65-115); Osmolality Calculated 294 mOsm/kg (285-295); Potassium 4.4 mmol/L (3.5-5.1); Sodium 135 mmol/L (136-145); Total Bilirubin 0.2 mg/dL (0.15-1.2); Total Protein 5.9 g/dL (6.6-8.7)
[2024-06-05 05:15] LABS: NT Pro B Type Natriuretic Pept 296 pg/mL (0-125); Procalcitonin 0.03 ng/mL (0-0.5)
[2024-06-05 05:16] LABS: Magnesium 1.8 mg/dL (1.7-2.3); Phosphorus 4.2 mg/dL (2.5-4.5)
[2024-06-05 05:18] LABS: Vancomycin Trough 25.6 ug/mL (10-15)
[2024-06-05] MEDS: piperacillin-tazobactam 3.375 GM in sodium chloride 0.9% (plus) 50 ML IV ×2 (05:30→13:50)
[2024-06-05] MEDS: pantoprazole DR 40 mg Tablet PO (06:36)
[2024-06-05 06:50] LABS: Glucose Point of Care 193 mg/dL (70-110)
[2024-06-05] MEDS: insulin lispro 100 unit/1 mL SUBCUT ×2 (07:54→12:20)
--- NOTE | 2024-06-05 08:20 | XR_ITS ---
WS: [id number] Portable AP upright chest, 06/05/2024 Clinical Data: ptx Comparison: Portable chest, 06/04/2024 Findings: No nodules, masses or effusions are seen. The heart is normal. The pulmonary vascularity is not increased. No pneumonia or pneumothorax is seen. The patchy bilateral pulmonary opacities remain the same. There are monitor leads on the chest wall. XR/XR chest 1V portable [id number] Impression: 1. No recurrence of right pneumothorax. 2. No change in bilateral pulmonary patchy opacities.
[2024-06-05] MEDS: ARIPiprazole 10 mg Tablet PO (09:28)
[2024-06-05] MEDS: spironolactone 25 mg Tablet 50 MG PO (09:28)
[2024-06-05] MEDS: sertraline 100 mg Tablet 150 MG PO (09:28)
[2024-06-05] MEDS: potassium chloride ER 20 mEq Tablet PO (09:28)
[2024-06-05] MEDS: gabapentin 300 mg Capsule 600 MG PO ×2 (09:29→15:06)
[2024-06-05] MEDS: sennosides 8.6 mg Tablet 17.2 MG PO (09:29)
[2024-06-05] MEDS: lisinopril 20 mg Tablet 40 MG PO (09:29)
[2024-06-05] MEDS: FUROsemide 40 mg Tablet PO (09:29)
[2024-06-05] MEDS: metoprolol succinate ER (24 HR) 25 mg Tablet PO (09:29)
[2024-06-05] MEDS: insulin glargine 100 units/1 mL 40 UNIT SUBCUT (09:59)
[2024-06-05 11:21] LABS: Glucose Point of Care 299 mg/dL (70-110)
--- NOTE | 2024-06-05 11:51 | P.PN_ITS ---
Subjective 2 Subjective: Patient seen and examined. Bandage in place and she has no complaints Vitals/I&O/Wt Last Vital Signs Temp 97.5 F L 06/05/24 08:00 Pulse 51 L 06/05/24 08:00 Resp 18 06/05/24 08:00 BP 143/92 06/05/24 08:00 Pulse Ox 91 06/05/24 08:00 O2 Del Method Nasal Cannula 06/05/24 08:00 O2 Flow Rate 3 06/05/24 08:00 06/04/24 06/05/24 06/05/24 22:59 06:59 14:59 Intake Total 690 / 1336 50 / 1386 304 / 304 Balance 690 / 1336 50 / 1386 304 / 304 Weight last 48 hrs Weight 288 lb Weight 288 lb Physical Exam 2 Narrative: General: No acute distress, awake alert and oriented x 3 Chest: Right anterior chest bandage clean dry and intact no surrounding erythema Data 06/05/24 04:05 06/05/24 04:05 Micro: Microbiology 06/04/24 16:28 Blood Culture - Preliminary Blood SPECIMEN COLLECTED 06/04/24 16:23 Blood Culture - Preliminary Blood SPECIMEN COLLECTED 06/03/24 06:46 Blood Culture - Preliminary Blood NEGATIVE TO DATE 06/02/24 21:15 Blood Culture - Preliminary Blood NEGATIVE TO DATE 06/02/24 21:11 Blood Culture - Preliminary Blood NEGATIVE TO DATE 06/03/24 06:46 Blood Culture - Preliminary Blood Staphylococcus epidermidis A&P Assessment and plan (1) Recurrent spontaneous pneumothorax: (2) COPD with acute exacerbation: (3) Pneumothorax on right: Plan 4 hours repeat chest x-ray after tube removal yesterday showed no further pneumothorax Bandage may be removed tomorrow medical management per primary Attestations 2 Medical Necessity Statement*: Per primary Coding Level of Care Code 79199 Diagnoses Recurrent spontaneous pneumothorax J93.83 COPD with acute exacerbation J44.1 Pneumothorax on right J93.9
--- NOTE | 2024-06-05 13:34 | P.DS_ITS ---
Discharge Providers Date of Admission: 06/02/24 21:04 Date of Discharge: June 05, 2024 Attending Provider at Admission: Erica Medeiros MD Attending Provider at Discharge: Blayne Cuevas MD Primary Care Provider: LILLIE Pleitez Diagnoses at Discharge Discharge Diagnosis (1) Recurrent spontaneous pneumothorax: Status: Acute (2) COPD with acute exacerbation: Status: Acute (3) Pneumothorax on right: Status: Acute Reason for Visit Reason for Visit: Dr Avila Possible Septic Hospital Course Hospital Course This is a 63-year-old female with a past medical history of Sjogren's disease, inflammatory arthritis, insulin-dependent type 2 diabetes mellitus, heart failure with preserved ejection fraction, emphysema, struct of sleep apnea on CPAP, who presents to [facility] due to shortness of breath Patient was admitted to [facility] for acute on chronic hypoxic respiratory failure secondary to COPD, pneumonia, right chest pneumothorax For COPD exacerbation patient overall clinically improved, will be discharged home with a close follow-up with pulmonary as outpatient For her right chest pneumothorax, with history of pneumothorax in the past, concerns for Sjogren's interstitial lung disease as etiology, she is status post Thora vent placement in the emergency room, general surgery was consulted, Thora vent was removed by general surgery, repeat chest x-rays did not show any significant evidence of reoccurrence. Overall patient clinically improved no shortness of breath, no chest pain, ambulating without significant symptomatology. Discussed with patient that if she develops these recurrent pneumothoraxes, she likely will require a pleurodesis or bronchial valves, as this is her third or fourth reoccurrence. And as we do not have the services available at [facility], she will need to follow-up with pulmonary as outpatient, patient will follow-up with general surgery as outpatient for repeat chest x-ray in 2 weeks. I have also reached out to patient's pulmonary team at [facility] in [place] so that hopefully they can follow-up with patient sooner, however as of yet I have not heard back For pneumonia she was discharged on p.o. antibiotics Patient's hospitalization was complicated with staphylococcal epidermidis bacteremia, 3 out of 4 blood cultures positive, no known artificial heart rate no PICC line no midline no port no Stanley catheter. She did have a Thora vent that was recently removed. No breaks in her skin no ulcers, no pressure wounds. Repeat blood cultures have been negative so far. Discussed risk and benefits of oral Zyvox versus IV antibiotics, after discussing risk benefits, she voiced understanding, all questions answered, shared decision making, agreed to proceed with p.o. Zyvox for 10 days. As of now the sensitivities of Staphylococcus epidermidis is not back as of yet. And her repeat blood cultures are -24 hours. Patient was advised if she were to have any fevers, chills, worsening shortness of breath to come back to the emergency room. If her repeat blood cultures do grow Staph epidermidis, will have to likely call her back to the hospital and she likely will require a transesophageal echocardiogram to rule out endocarditis as a source. She is to hold her sertraline and Plaquenil for at least 10 days. Physical Exam Const: COMMON NORMALS: no acute distress and patient oriented x3 Resp: COMMON NORMALS: normal respiratory effort, No retractions, No use of accessory muscles and clear to auscultation bilaterally AUSCULTATION: clear to auscultation bilaterally Cardio: COMMON NORMALS: regular rate, regular rhythm, S1 normal heart sound present and S2 normal heart sound present RATE: regular rate RHYTHM: regular rhythm HEART SOUNDS: S1 normal heart sound present and S2 normal heart sound present GI: COMMON NORMALS: Normal to inspection, nondistended, normoactive bowel sounds present and non-tender Extremity: COMMON NORMALS: no pedal edema Neuro: COMMON NORMALS: patient oriented x3 Psych: COMMON NORMALS: mental status grossly normal Skin: NARRATIVE SKIN EXAM: Thora vent site looks clean and dry Discharge Data Studies Completed and Pending Completed Studies During Hospitalization Category Date Time Status CT chest wo con 55153 Routine Cat Scan 06/03/24 10:[address] head wo con* [id number] Stat Cat Scan 06/02/24 19:48 Completed CXRP [XR chest 1V portable [id number]] Routine Exams 06/03/24 06:18 Completed CXRP [XR chest 1V portable 63035] Routine Exams 06/04/24 12:00 Completed CXRP [XR chest 1V portable [id number]] Stat Exams 06/02/24 20:22 Completed CXRP [XR chest 1V portable 33570] Stat Exams 06/03/24 20:15 Completed XR chest 1V portable [id number] Routine Exams 06/04/24 07:00 Completed XR chest 1V portable [id number] Stat Exams 06/02/24 19:22 Completed XR chest 1V portable [id number] Stat Exams 06/05/24 08:20 Completed CV. echo complete* [id number] Routine Ultrasound 06/04/24 15:20 Completed Pending at discharge Category Date Time Status Blood Culture Stat Lab 06/02/24 21:15 Results Blood Culture Stat Lab 06/03/24 06:46 Results Blood Culture Stat Lab 06/04/24 16:28 Results C Reactive Protein AM LABS Lab 06/06/24 04:00 Ordered CBC Auto Diff [Complete Blood Count w/Auto] AM LABS Lab 06/06/24 04:00 Ordered NT Pro B Type Natriuretic Pept QAM Lab 06/06/24 06:00 Ordered Procalcitonin AM LABS Lab 06/06/24 04:00 Ordered Sputum Culture and Gram Stain Stat Lab 06/05/24 05:30 Received Radiology Impressions Head CT 06/02/24 19:48 IMPRESSION: No acute intracranial abnormality. Chest CT 06/03/24 10:40 IMPRESSION: 1. Small residual RIGHT pneumothorax. 2. Tip of the inserted Thora vent appears to be encased or embedded within the RIGHT upper lobe lung. Wedge-shaped consolidation, likely atelectasis surrounding the tip of the thyroid bed. There are event may need to be repositioned or removed. Chest X-Ray 06/05/24 08:20 Impression: 1. No recurrence of right pneumothorax. 2. No change in bilateral pulmonary patchy opacities. Laboratory Results WBC 11.85 10^3/uL (3.29-11.43) H 06/05/24 04:05 RBC 4.78 10^6/uL (3.85-5.65) 06/05/24 04:05 Hgb 13.40 g/dL (11.27-16.99) 06/05/24 04:05 Hct 41.3 % (36-47) 06/05/24 04:05 MCV 86.4 fl (85-98) 06/05/24 04:05 MCH 28.0 pg (27-33) 06/05/24 04:05 MCHC 32.4 g/dL (30-55) 06/05/24 04:05 RDW 13.1 % (12.1-15.1) 06/05/24 04:05 Plt Count 235 10^3/cmm (157-399) 06/05/24 04:05 MPV 9.5 fL (7.4-10.4) 06/05/24 04:05 Neut % (Auto) 80.7 % 06/05/24 04:05 Lymph % (Auto) 11.8 % 06/05/24 04:05 Lares % (Auto) 6.1 % 06/05/24 04:05 Eos % (Auto) 0.5 % 06/05/24 04:05 Baso % (Auto) 0.2 % 06/05/24 04:05 Neut # (Auto) 9.57 10^3/uL (1.8-7.7) H 06/05/24 04:05 Lymph # (Auto) 1.4 10^3/uL (0.8-4.8) 06/05/24 04:05 Lares # (Auto) 0.7 10^3/uL (0.2-0.9) 06/05/24 04:05 Eos # (Auto) 0.1 10^3/uL (0.0-0.8) 06/05/24 04:05 Baso # (Auto) 0.0 10^3/uL (0.0-0.1) 06/05/24 04:05 Nucleated RBC % (auto) 0 % 06/05/24 04:05 Nucleated RBCs # 0.0 /100WBC 06/05/24 04:05 PT 13.80 SECONDS (12.1-14.9) 06/03/24 08:08 INR 0.99 (0.8-1.2) 06/03/24 08:08 APTT 36.1 SECONDS (23.9-36.7) 06/03/24 08:08 Sodium 135 mmol/L (136-145) L 06/05/24 04:05 Potassium 4.4 mmol/L (3.5-5.1) 06/05/24 04:05 Chloride 97 mmol/L (98-107) L 06/05/24 04:05 Carbon Dioxide 27 mmol/L (22-29) 06/05/24 04:05 Anion Gap 15.4 (5-19) 06/05/24 04:05 BUN 31 mg/dL (8-23) H 06/05/24 04:05 Creatinine 1.0 mg/dL (0.5-0.9) H 06/05/24 04:05 GFR Calculation 56.0 mL/min (90-130) L 06/05/24 04:05 Glucose 238 mg/dL (65-115) H 06/05/24 04:05 POC Glucose 299 mg/dL (70-110) H 06/05/24 10:45 Calculated Osmolality 294 mOsm/kg (285-295) 06/05/24 04:05 Calcium 9.6 mg/dL (8.5-10.5) 06/05/24 04:05 Phosphorus 4.2 mg/dL (2.5-4.5) 06/05/24 04:05 Magnesium 1.8 mg/dL (1.7-2.3) 06/05/24 04:05 Total Bilirubin 0.2 mg/dL (0.15-1.2) 06/05/24 04:05 AST 8 U/L (0-32) 06/05/24 04:05 ALT 9 U/L (0-33) 06/05/24 04:05 Alkaline Phosphatase 79 U/L (35-105) 06/05/24 04:05 C-Reactive Protein 8.8 mg/L (0.0-4.9) H 06/05/24 04:05 NT-Pro-B Natriuret Pep 296 pg/mL (0-125) H 06/05/24 04:05 Total Protein 5.9 g/dL (6.6-8.7) L 06/05/24 04:05 Albumin 3.8 g/dL (3.5-5.2) 06/05/24 04:05 Globulin 2.1 g/dL (1.3-4.6) 06/05/24 04:05 Lipase 33 U/L (13-60) 06/02/24 19:50 Procalcitonin 0.03 ng/mL (0-0.5) 06/05/24 04:05 Urine Color Yellow (Yellow) 06/02/24 19:58 Urine Appearance Clear (CLEAR) 06/02/24 19:58 Urine pH 5.5 (5-7) 06/02/24 19:58 Ur Specific [place] 1.012 (1.005-1.030) 06/02/24 19:58 Urine Protein Negative (Negative) 06/02/24 19:58 Urine Glucose (UA) Trace (Normal) H 06/02/24 19:58 Urine Ketones Negative (Negative) 06/02/24 19:58 Urine Blood Negative (Negative) 06/02/24 19:58 Urine Nitrate Negative (Negative) 06/02/24 19:58 Urine Bilirubin Negative (Negative) 06/02/24 19:58 Urine Urobilinogen 0.2 mg/dL (Negative) 06/02/24 19:58 Ur Leukocyte Esterase Negative (Negative) 06/02/24 19:58 Urine RBC 0-2 /hpf (0-2) 06/02/24 19:58 Urine WBC 0-5 /hpf (0-5) 06/02/24 19:58 Ur Squamous Epith Cells 0-5 /hpf (0-5) 06/02/24 19:58 Amorphous Sediment Not Reportable 06/02/24 19:58 Urine Bacteria None seen /hpf (NONE) 06/02/24 19:58 Hyaline Casts 3.30 /lpf 06/02/24 19:58 Vancomycin Trough 25.6 ug/mL (10-15) H* 06/05/24 04:05 Coronavirus (PCR) Negative (Negative) 06/03/24 07:15 Influenza A (PCR) Negative (Negative) 06/03/24 07:15 Influenza Type B (PCR) Negative (Negative) 06/03/24 07:15 RSV (PCR) Negative (Negative) 06/03/24 07:15 Vitals Last Vital Signs Temp 97.5 F L 06/05/24 08:00 Pulse 51 L 06/05/24 08:00 Resp 18 06/05/24 08:00 BP 143/92 06/05/24 08:00 Pulse Ox 91 06/05/24 08:00 O2 Del Method Nasal Cannula 06/05/24 08:00 O2 Flow Rate 3 06/05/24 08:00 Discharge Plan Discharge Patient Disposition: Home Condition: Stable Prescriptions: New linezolid [Zyvox] 600 mg tablet 600 mg PO Q12H 10 Days Qty: 20 0RF amoxicillin-pot clavulanate 875-125 mg tablet 1 tab PO BID 5 Days Qty: 10 0RF Continued (DME) Blood Glucose Test Strip See Rx Instructions .ROUTE .MEDSUPPLY Qty: 100 1RF Rx Instructions: As directed (DME) oxygen-air delivery systems Device See Rx Instructions .Route Rx Instructions: As directed acetaminophen 325 mg tablet 325 mg PO QID PRN (Reason: Pain) diphenhydramine HCl [Benadryl Allergy] 25 mg tablet 25 mg PO TID PRN (Reason: Allergy Symptoms) ibuprofen 200 mg tablet 200 mg PO Q6H PRN (Reason: Pain) (DME) nebulizer and supplies See Rx Instructions .Route .MEDSUPPLY Qty: 1 0RF Rx Instructions: As directed ([facility]) back brace See Rx Instructions .Route .MEDSUPPLY Qty: 1 0RF Rx Instructions: As directed ([facility]) Standard Cpap Device See Rx Instructions .Route Rx Instructions: As directed ([facility]) pen needle, diabetic [BD Ultra-Fine Corine Pen Needle] 32 gauge x 5/32 needle See Rx Instructions .Route Qty: 100 3RF Rx Instructions: use as directed for insulin injections twice daily pilocarpine HCl 5 mg tablet 5 mg PO TID Qty: 90 5RF modafinil 200 mg tablet 200 mg PO QAM Qty: 30 2RF aripiprazole [Abilify] 10 mg tablet 10 mg PO DAILY Qty: 30 2RF bupropion HCl [Wellbutrin XL] 300 mg tablet extended release 24 hr 300 mg PO QAM Qty: 30 2RF zolpidem [Ambien] 5 mg tablet 5 mg PO BEDTIME PRN (Reason: sleep) Qty: 30 2RF clonazepam 0.5 mg tablet 0.5 mg PO BID PRN (Reason: anxiety) Qty: 60 1RF nitroglycerin [Nitrostat] 0.4 mg tablet, sublingual 0.4 mg SUBLINGUAL Q5M PRN (Reason: chest pain) Qty: 25 3RF Rx Instructions: do not exceed 3 doses per episode (DME) blood-glucose meter [Blood Glucose Monitoring] Kit See Rx Instructions .ROUTE .MEDSUPPLY Qty: 1 0RF Rx Instructions: As directed ([facility]) FreeStyle Jack 2 Sensor Kit See Rx Instructions .ROUTE .MEDSUPPLY Qty: 2 3RF Rx Instructions: pt having hypoglycemia (DME) FreeStyle Jack 2 [place] Misc See Rx Instructions .ROUTE .MEDSUPPLY Qty: 1 0RF Rx Instructions: As directed ([facility]) afflovest See Rx Instructions .Route .MEDSUPPLY Qty: 1 0RF Rx Instructions: As directed (DME) [facility] See Rx Instructions .Route .MEDSUPPLY Qty: 1 0RF Rx Instructions: As directed atorvastatin 20 mg tablet 20 mg PO BEDTIME Qty: 90 3RF spironolactone 50 mg tablet 50 mg PO DAILY Qty: 90 3RF Xarelto 20 mg tablet 20 mg PO DAILY Qty: 90 3RF lisinopril 40 mg tablet 40 mg PO DAILY Qty: 90 3RF furosemide 40 mg tablet 40 mg PO BID Qty: 180 2RF potassium chloride 20 mEq tablet extended release 20 meq PO DAILY Qty: 90 3RF prednisone 5 mg tablet 5 mg PO DAILY Qty: 90 1RF gabapentin 600 mg tablet 600 mg PO TID fluconazole 150 mg tablet 150 mg PO Q3D PRN (Reason: symptoms from abx) Rx Instructions: may repeat second dose 72 hrs after first dose if symptoms persist metoprolol succinate 25 mg tablet extended release 24 hr 25 mg PO DAILY fluticasone propionate [Flonase Allergy Relief] 50 mcg/actuation spray,suspension 2 spray intranasal DAILY PRN (Reason: allergies) cholecalciferol (vitamin D3) 1,250 mcg (50,000 unit) capsule 1,250 mcg PO Q7D Rx Instructions: Fridays budesonide-formoterol [Symbicort] 160-4.5 mcg/actuation HFA aerosol inhaler 2 puff inhalation BID Incruse Ellipta 62.5 mcg/actuation blister with device 1 inh inhalation DAILY Combivent Respimat 20-100 mcg/actuation mist 1 puff inhalation Q6H PRN (Reason: Shortness Of Breath) albuterol sulfate 2.5 mg /3 mL (0.083 %) solution for nebulization 2.5 mg inhalation Q6H PRN (Reason: Shortness Of Breath Or Wheezing) albuterol sulfate 90 mcg/actuation HFA aerosol inhaler 2 puff inhalation Q8H PRN (Reason: Shortness Of Breath Or Wheezing) Changed Novolin R FlexPen 100 unit/mL (3 mL) insulin pen See Rx Instructions .ROUTE .COMPLEX Qty: 54 1RF Rx Instructions: Inject, subcut, 3 times daily, after meals, based on sliding scale provided insulin glargine [Lantus Solostar U-100 Insulin] 100 unit/mL (3 mL) insulin pen 40 unit SUBCUT QAM Qty: 67.5 1RF Held sertraline [Zoloft] 100 mg tablet 150 mg PO DAILY Qty: 45 2RF Hold Instructions: Resume on 06/16/24. hydroxychloroquine 200 mg tablet 200 mg PO BID Qty: 180 1RF Hold Instructions: Resume on 06/16/24. Discontinued doxycycline monohydrate 100 mg capsule 100 mg PO BID 7 Days Qty: 14 0RF Discharge Orders: Discharge Order (Routine); Ordered 06/05/24 Ordered By: Blayne Cuevas Other Ambulatory Orders: DME: Oxygen (Order) Location: None Selected Ordered By: Blayne Cuevas Referrals: [facility] [Outside] Manolo Fields DO [Physician] - 1 week Marguerite Wade FNP [Primary Care Provider] - 06/12/24 10:00 am Discharge Diet: Cardiac Discharge Activity: Resume usual activity Patient Instructions: Amoxicillin/Clavulanate Potassium (By mouth), Linezolid (By mouth) (Zyvox), Spontaneous Pneumothorax (DC), Bacteremia (DC), Opioid Safety Activity Restrictions/Additional Instructions: - Please follow-up with pulmonary as an outpatient -If you have fevers, chills please come with the concern -Please take this as prescribed -If you have sudden onset shortness of breath please go to the emergency room -Hold Zoloft and Plaquenil as prescribed -follow up with pulmonary -Please monitor your blood sugars closely -Monitor your blood sugars 3 times daily as after meals -Please record your blood sugars, and a blood sugar log -For your NovoLog -Please inject blood sugar after meals based on sliding scale provided -Do not inject insulin if you do not eat as hypoglycemia kills -This is a NovoLog sliding scale -Insulin sliding ?fingerstick? Insulin ?141-180?2 units/sq 181-220?4 units/sq ?221-260?6 units/sq ?261-300 8 units/sq ?301-350?10 units/sq ?351-400 12 units/sq ?401-450?14 units/sq >450? 16 units/sq -If your blood sugar is greater than 500 go to the emergency room -If your blood sugar is less than 60 or at anytime you feel lightheaded or dizzy or diaphoretic or have chest palpitations check your blood sugar, and eat a hard candy or drink orange juice and go immediately to the emergency room -Remember hypoglycemia kills, so if his blood sugar is less than 60 we have to increase it by taking in a sugary meal such as a hard candy or orange juice and go to the emergency room -If you have any questions please call us where here to help Discharge Attestations Time Spent in Discharge Care*: greater than 30 min Quality Metrics Clinical Quality Measures [ No reported AMI, CVA or VTE this stay] Coding Level of Care Code 58063 Total time (in minutes) for Discharge: 45 Diagnoses Recurrent spontaneous pneumothorax J93.83 COPD with acute exacerbation J44.1 Pneumothorax on right J93.9
--- NOTE | 2024-06-05 13:59 | PC.SOCIAL ---
IMM Updated Updated pt on IMM.. No questions voiced. Provided pt a copy. Initialed, dated, & timed a copy & placed in chart.
== END 2024-06-05 17:15 | disposition home or self-care (01) | DRG 199 ==
LOC: ER 21:12 → MEDSURG 22:35
PROVIDERS: Admitting Provider Internal Medicine; Emergency Provider Emergency Medicine; PCP Nurse Practitioner Family; Visit Provider Family Medicine
DX: J93.11 Primary spontaneous pneumothorax (principal); J18.9 Pneumonia, unspecified organism; J96.21 Acute and chronic respiratory failure with hypoxia; J44.0 Chronic obstructive pulmonary disease with (acute) lower respiratory infection; J44.1 Chronic obstructive pulmonary disease with (acute) exacerbation; J84.9 Interstitial pulmonary disease, unspecified; I50.30 Unspecified diastolic (congestive) heart failure; R78.81 Bacteremia; F31.81 Bipolar II disorder; J43.9 Emphysema, unspecified; M35.02 Sjogren syndrome with lung involvement; M19.90 Unspecified osteoarthritis, unspecified site; E11.40 Type 2 diabetes mellitus with diabetic neuropathy, unspecified; E11.51 Type 2 diabetes mellitus with diabetic peripheral angiopathy without gangrene; I11.0 Hypertensive heart disease with heart failure; G47.33 Obstructive sleep apnea (adult) (pediatric); B95.7 Other staphylococcus as the cause of diseases classified elsewhere; G58.7 Mononeuritis multiplex; I48.0 Paroxysmal atrial fibrillation; E78.5 Hyperlipidemia, unspecified; G47.00 Insomnia, unspecified; E27.8 Other specified disorders of adrenal gland; E04.1 Nontoxic single thyroid nodule; F17.210 Nicotine dependence, cigarettes, uncomplicated; Z79.01 Long term (current) use of anticoagulants; Z79.84 Long term (current) use of oral hypoglycemic drugs; Z79.4 Long term (current) use of insulin
CPT/HCPCS: 36415; 36416; 70450; 71045; 71250; 80053; 80202; 81001; 82962; 83690; 83735; 83880; 84100; 84145; 85025; 85610; 85730; 86140; 87040; 87070; 87077; 87150; 87186; 87205; 87637; 93306; 94640; 94760; 96365; 96372; 96375; 97116; 97162; 97167; 97530; 97535; 99285; J0456; J0696; J1171; J1650; J1815; J2543; J2919; J3372; J7030; J7050

== ENCOUNTER → 2024-06-17 10:44 | Outpatient (BNVA) | payer MEDICARE, MEDICAID, SELFPAY ==
[2023-12-11 10:50] VITALS: BP 162/77; BMI 40.6
== END ==
PROVIDERS: PCP Nurse Practitioner Family; Visit Provider Nurse Practitioner Family
DX: I10 Essential (primary) hypertension (principal); R53.83 Other fatigue; R79.82 Elevated C-reactive protein (CRP)
CPT/HCPCS: 80053; 80061; 85025; 86140

== ENCOUNTER → 2024-07-29 10:16 | Outpatient (BNVA) | payer MEDICARE, MEDICAID, SELFPAY ==
[2023-12-11 10:50] VITALS: BP 162/77; BMI 40.6
== END ==
PROVIDERS: PCP Nurse Practitioner Family; Visit Provider Internal Medicine
DX: E78.5 Hyperlipidemia, unspecified (principal); D35.02 Benign neoplasm of left adrenal gland; E11.42 Type 2 diabetes mellitus with diabetic polyneuropathy; E11.65 Type 2 diabetes mellitus with hyperglycemia; E04.1 Nontoxic single thyroid nodule; I10 Essential (primary) hypertension
CPT/HCPCS: 99214

== ENCOUNTER → 2024-08-13 14:46 | Outpatient (BNVA) | payer MEDICARE, MEDICAID, SELFPAY ==
[2023-12-11 10:50] VITALS: BP 162/77; BMI 40.6
== END ==
PROVIDERS: PCP Nurse Practitioner Family; Visit Provider Internal Medicine
DX: R07.89 Other chest pain (principal); I11.0 Hypertensive heart disease with heart failure; I50.32 Chronic diastolic (congestive) heart failure; I48.0 Paroxysmal atrial fibrillation; E11.42 Type 2 diabetes mellitus with diabetic polyneuropathy; Z79.4 Long term (current) use of insulin; G47.33 Obstructive sleep apnea (adult) (pediatric); F17.218 Nicotine dependence, cigarettes, with other nicotine-induced disorders
CPT/HCPCS: 99214

== ENCOUNTER → 2024-08-24 09:10 | Outpatient (BNVA) | payer MEDICARE, MEDICAID, SELFPAY ==
[2023-12-11 10:50] VITALS: BP 162/77; BMI 40.6
== END ==
PROVIDERS: PCP Nurse Practitioner Family; Visit Provider Nurse Practitioner Family
DX: N39.0 Urinary tract infection, site not specified (principal); R11.2 Nausea with vomiting, unspecified; E04.1 Nontoxic single thyroid nodule; I10 Essential (primary) hypertension; R73.9 Hyperglycemia, unspecified; R53.83 Other fatigue
CPT/HCPCS: 80053; 80061; 81000; 83036; 84443; 85025; 87077; 87086; 87184

== ENCOUNTER 2024-08-25 08:18 | Outpatient (CLI) | payer MEDICAID, MEDICARE, SELFPAY ==
[2023-12-11 10:50] VITALS: BP 162/77; BMI 40.6
--- NOTE | 2024-08-25 08:42 | ECG_ITS ---
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 Interpretive Statements LEXISCAN: Procedure: At the baseline, the blood pressure was 142/86mmHg with a heart rate of 65 bpm. The electrocardiogram showed normal sinus rhythm, normal axis with normal ST and T's. Frequent PACs seen. The Lexiscan was infused over a period of 20 seconds. A total of 0.4 mg of Lexiscan was infused. The stress phase was continued for a total of 5 minutes. Heart rate was at the end of stress phase was 79 bpm and a blood pressure of 129/82 mmHg. The EKG at the peak infusion revealed normal sinus rhythm with no significant ST-T wave changes. Sestamibi was injected 20 seconds after the Lexiscan infusion. Blood pressure at the end of recovery phase was 127/71 mmHg with a heart rate of 83 bpm. Conclusion: 1. Normal EKG response to Lexiscan infusion 2. No Lexiscan induced chest pain or cardiac arrhythmia. 3. Normal blood pressure and heart rate response. 4. Sestamibi/sestamibi perfusion scan pending; see separate report. Electronically Signed On 08-29-2024 21:00:47 CDT by Mo Adamson M.D. [id number] [id number]
[2024-08-25 08:43] VITALS: BMI 41.1
--- NOTE | 2024-08-25 08:43 | NMCV_ITS ---
NM richie perf SPECT r/s* [id number] Alissa Beck Age: 64 Gender: F : 1960 Exam Date: 08/25/2024 10:30 Ordering Phys: Mo Adamson M.D ([email or web address]) Technologist: RAMESH Schaefer Exam Location: [facility] Indications: cp STRESS TEST Please see separate stress test report in [facility] for full findings IMAGE PROTOCOL Rest/Stress 1 Lexiscan Day Radiopharmaceutical Dose (mCi) Administration Site Administered by Rest: Tc-99m 10.2 IV Gin Kerr, FREIGHT REPRESENTATIVE Sestamibi Stress:Tc-99m 32.9 IV Gin Rivasgle, FREIGHT REPRESENTATIVE Sestamibi Rest: 25-Aug-2024 60 Discovery 630 Stress: 25-Aug-2024 30 Discovery 630 0.4mg Lexiscan. Supine position only as patient was unable to lay prone. SPECT RESULTS Technical Quality: Good Raw Data Analysis: Normal Image Corrections: No attenuation or motion correction applied Summed Stress Score: 2 Summed Rest Score: 0 Summed Difference Score: 2 PERFUSION FINDINGS Small area of moderate reversibility noted in the apex ventricle, in the absence of wall motion abnormality may represent apical thinning artifact. FUNCTIONAL RESULTS (calculated via Gated SPECT) Stress Image LV EF (%): 69 Stress EDV (mL):124 TID: 1.03 Stress ESV (mL):39 FUNCTIONAL FINDINGS: There is normal left ventricular systolic function. IMPRESSIONS Small area of moderate reversibility noted in the apex of the ventricle, in the absence of wall motion abnormality may represent apical thinning artifact.This study is negative for ischemia. Ravin Rooney MD (Electronically Signed) Final Date: 26 August 2024 10:19 S
[2024-08-25] MEDS: regadenoson 0.4 Mg/5 ml Syringe IVP (10:34)
[2024-08-25 10:53] VITALS: BP 127/81; PULSE 87
== END 2024-08-25 08:19 | disposition home or self-care (01) ==
PROVIDERS: PCP Nurse Practitioner Family; Visit Provider Internal Medicine
DX: R07.9 Chest pain, unspecified (principal); R06.02 Shortness of breath
CPT/HCPCS: 36415; 78452; 93017; 96374; A9500; J2785

== ENCOUNTER 2024-09-08 11:20 | Outpatient (CLI) | payer MEDICARE, MEDICAID, SELFPAY ==
[2024-08-25 11:02] VITALS: BP 120/78; BMI 41.2
--- NOTE | 2024-09-08 11:26 | XRR_ITS ---
PROCEDURE INFORMATION: Exam: XR Abdomen Exam date and time: 09/08/2024 11:53 AM Age: 64 years old Clinical indication: Abdominal pain; Generalized; Prior surgery; Surgery date: 6+ months; Surgery type: Twisted bowel removal, hernia repair; Xweeks vomiting and constipation, pain in entire abdomen; Additional info: R10.9 - unspecified abdominal pain TECHNIQUE: Imaging protocol: Radiologic exam of the abdomen. Views: Frontal supine view of the abdomen. 1 View. COMPARISON: CR XR KUB [id number] 11/01/2021 9:02 AM FINDINGS: Gastrointestinal tract: Moderate colonic fecal material suggesting constipation. Organs: Cholecystectomy. Bones/joints: Stable sclerotic focus in each proximal femur unchanged since 2021. XR/XR KUB [id number] IMPRESSION: Nonspecific.
== END 2024-09-08 11:21 | disposition home or self-care (01) ==
LOC: RAD 11:22
PROVIDERS: PCP Nurse Practitioner Family; Visit Provider Nurse Practitioner Family
DX: R10.9 Unspecified abdominal pain (principal); R93.89 Abnormal findings on diagnostic imaging of other specified body structures; Z90.49 Acquired absence of other specified parts of digestive tract; R93.7 Abnormal findings on diagnostic imaging of other parts of musculoskeletal system
CPT/HCPCS: 74018

== ENCOUNTER → 2024-09-10 08:09 | Outpatient (BNVA) | payer MEDICAID, SELFPAY ==
[2024-08-25 11:02] VITALS: BP 120/78; BMI 41.2
== END ==
PROVIDERS: PCP Nurse Practitioner Family; Visit Provider Nurse Practitioner Family
DX: N39.0 Urinary tract infection, site not specified (principal)
CPT/HCPCS: 81000; 87086

== ENCOUNTER → 2024-09-21 10:44 | Outpatient (BNVA) | payer OTHER, SELFPAY ==
[2024-08-25 11:02] VITALS: BP 120/78; BMI 41.2
== END ==
PROVIDERS: PCP Nurse Practitioner Family; Visit Provider Nurse Practitioner Family
DX: I10 Essential (primary) hypertension (principal); R53.83 Other fatigue
CPT/HCPCS: 80053; 85025

== ENCOUNTER 2024-10-01 15:28 | Emergency (ER) | payer OTHER, MEDICAID, SELFPAY ==
[2024-08-25 11:02] VITALS: BP 120/78; BMI 41.2
[2024-10-01 15:36] VITALS: BP 144/84; PULSE 86; RESP 17; TEMP 36.7; O2SAT 93; BMI 38.0
--- NOTE | 2024-10-01 16:04 | ED_ITS ---
HPI - Extremity Problem General: Chief complaint: Extremity Injury, Lower Stated complaint: Left Leg Pain Time Seen by Provider: 10/01/24 15:41 Source: patient Mode of arrival: ambulatory History of Present Illness: 64yo female presents with pain, swelling , and bruising of the left lower leg. Patient reports she had a fall about a week ago. States she got up in the night to go to the restroom, fell asleep in the restroom, then fell off of the stool. Reports that she did hit her head, but is not having any complications from her head. States she has continued to have pain to the left lower leg, anterior aspect. Reports she also has redness and swelling to the lower portion of her leg. Patient reports she does have a history of diabetes and it is typically her right leg that is red and swollen, not her left. She denies pain to the back of the calf, upper leg, any other concerns at this time. Associated symptoms: Deny fever(s) Related Data Home Medications ?Medication ?Instructions ?Recorded ?Confirmed oxygen-air delivery systems 01/17/22 09/21/24 acetaminophen 325 mg tablet 325 mg PO QID PRN Pain 03/0409/21/24 diphenhydramine HCl 25 mg tablet 25 mg PO TID PRN Bob rgy Symptoms 11/19/22 09/21/24 (Benadryl Allergy) ibuprofen 200 mg tablet 200 mg PO Q6H PRN Pain 11/1909/21/24 CPAP (Standard Cpap) 08/07/23 09/21/24 albuterol sulfate 2.5 mg/3 mL 2.5 mg inhalation Q6H MN N 12/04/23 09/21/24 (0.083 %) solution for nebulization Shortness Of Breat h Or Wheezing albuterol sulfate 90 mcg/actuation 2 puff inhalation Q 8H PRN 12/04/23 09/21/24 aerosol inhaler Shortness Of Breath Or Wheez ing fluticasone propionate 50 2 spray intranasal DAILY PRN 06/03/24 09/21/24 mcg/actuation nasal allergies spray,suspension (Flonase Allergy Relief) Previous Rx's ?Medication ?Instructions ?Recorded blood sugar diagnostic (Blood #100 ea 06/30/19 Glucose Test strips) blood-glucose meter (Blood Glucose #1 ea 01/22/20 Monitoring kit) flash glucose scanning reader #1 ea 08/01/20 (FreeStyle Jack 2 [place]) flash glucose sensor (FreeStyle #2 ea 08/01/20 Jack 2 Sensor kit) pen needle, diabetic 32 gauge x #100 ea 02/15/22 (BD Ultra-Fine Corine Pen Needle) nebulizer and supplies #1 ea 02/14/23 afflovest #1 ea 02/26/23 back brace #1 ea 04/15/23 [facility] #1 ea 06/18/23 pilocarpine HCl 5 mg tablet 5 mg PO TID #90 tabs 12/17 atorvastatin 20 mg tablet 20 mg PO BEDTIME #90 tabs furosemide 40 mg tablet 40 mg PO BID #180 tabs 01/08 lisinopril 40 mg tablet 40 mg PO DAILY #90 tabs 12/12 02/03 potassium chloride 20 mEq 20 meq PO DAILY #90 tabs tablet,extended release rivaroxaban 20 mg tablet (Xarelto) 20 mg PO DAILY #90 tabs 01/09/24 spironolactone 50 mg tablet 50 mg PO DAILY #90 tabs modafinil 200 mg tablet 200 mg PO QAM #30 tabs 01/27 hydroxychloroquine 200 mg tablet 200 mg PO BID #180 ta bs 03/16/24 Held on 06/05/24. Instructions: Resume on 06/16/24. prednisone 5 mg tablet 5 mg PO DAILY #90 tabs 04/22 bupropion HCl 300 mg 24 hr tablet, 300 mg PO QAM #30 t abs 04/30/24 extended release (Wellbutrin XL) clonazepam 0.5 mg tablet 0.5 mg PO BID PRN anxiety #6 0 tabs 04/30/24 nitroglycerin 0.4 mg sublingual 0.4 mg sublingual Q5M PRN chest 05/21/24 tablet (Nitrostat) pain #25 tabs insulin glargine 100 unit/mL (3 40 unit (0.4 mL) SUBCU T QAM #67.5 06/05/24 mL) subcutaneous pen (Lantus mL Solostar U-100 Insulin) insulin regular human 100 unit/mL See Rx Instructions .Route 06/05/24 (3 mL) subcutaneous pen (Novolin R .COMPLEX #54 mL FlexPen) ondansetron HCl 4 mg tablet 4 mg PO DAILY PRN nausea a nd 06/19/24 vomiting 4 days #4 tabs quetiapine 50 mg tablet (Seroquel) 50 mg PO .HS #30 ta bs 07/23/24 sertraline 100 mg tablet (Zoloft) 200 mg (2 x 100 mg) PO DAILY #60 07/23/24 tabs zolpidem 5 mg tablet (Ambien) 5 mg PO BEDTIME PRN slee p #30 tabs 07/23/24 blood-glucose,financial specialist,cont #1 ea 07/29/24 (FreeStyle Jack 3 [place]) budesonide-formoterol HFA 160 See Rx Instructions .Rou te 08/03/24 mcg-4.5 mcg/actuation aerosol .COMPLEX #11 grams inhaler metoprolol succinate 50 mg 50 mg PO DAILY #90 tabs 08/04 tablet,extended release 24 hr ondansetron HCl 4 mg tablet 4 mg PO DAILY PRN nausea a nd 08/24/24 vomiting 7 days #7 tabs blood-glucose sensor (FreeStyle #2 ea 08/26/24 Jack 3 Plus Sensor device) ipratropium 20 mcg-albuterol 100 See Rx Instructions . Route 09/07/24 mcg/actuation mist for inhalation .COMPLEX #4 grams (Combivent Respimat) umeclidinium 62.5 mcg/actuation See Rx Instructions .R oute 09/07/24 blister powder for inhalation .COMPLEX #30 ea (Incruse Ellipta) lactulose 10 gram/15 mL oral 30 g (45 mL) PO TID #4,05 0 mL 09/21/24 solution (Constulose) cholecalciferol (vitamin D3) 1,250 See Rx Instructions .Route 09/30/24 mcg (50,000 unit) capsule .COMPLEX #12 caps Allergies Allergy/AdvReac Type Severity Reaction Status Date / Time Sulfa (Sulfonamide Allergy Unknown Unknown Verified 09/21/24 09:59 Antibiotics) quinine (From Quine) Allergy unknown Verified 09/21/24 09:59 ropinirole (From Requip) Allergy Unknown Verified 09/21/24 09:59 Review of Systems Const: Denies: fever(s), chills or body aches Resp: Denies: dyspnea Musc: Denies: limited range of motion Skin/Breast: Reports: erythema (left lower leg) and skin swelling (left lower leg) PFSH ED PFSH: Medical History Sleep apnea Primary Sjogren's syndrome Lower extremity weakness Positive AMI (antinuclear antibody) Disorders of diaphragm Atelectasis of both lungs CHF (congestive heart failure), NYHA class III Drug-induced myopathy Recurrent pneumonia Emphysema lung Encephalopathy acute Acute and chronic respiratory failure with hypercapnia UTI (urinary tract infection) due to Enterococcus Excessive daytime sleepiness Diabetes type 2, controlled Insomnia Gross hematuria UTI (urinary tract infection) Psychiatric care Essential (primary) hypertension Chronic obstructive pulmonary disease with (acute) exacerbation Polyneuropathy, unspecified Callus Porokeratosis PVD (peripheral vascular disease) Shortness of Breath Bilateral leg edema Angina pectoris 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 with no history of malignant neoplasm AF (paroxysmal atrial fibrillation) Hypertension Tobacco abuse disorder Uncontrolled type 2 diabetes mellitus with polyneuropathy Acute DM type 2 causing complication Cannabis dependence, uncomplicated Nicotine dependence, cigarettes, with other nicotine-induced disorders Bipolar II disorder Post-traumatic stress disorder, chronic Surgical History H/O chest tube placement History of hysterectomy History of cholecystectomy History of appendectomy History of hernia repair Family History Father , AT AGE 21 Gunshot wound Mother , AT AGE 61 CAD (coronary artery disease) Other Cancer Diabetes Stroke Social History Smoking and tobacco/nicotine status: current every day tobacco/nicotine user cigarettes Packs smoked per day: 1.5 Years cigarettes smoked: 52 [ Other cigarette details: Started at age 10] Second hand smoke exposure: Yes Alcohol intake: current Alcohol intake frequency: holidays/special occasions only Alcohol type: other Substance/Drug Use: former Date of last use: 2020 Adopted: No Caregiver/support person: No Lives independently: Yes Household members: significant other Housing: Manufactured/Mobile home Marital status: Life Partner Number of children: 0 Number of grandchildren: 0 Highest education level completed: Some College, No Degree service: No Current occupational status: disabled 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 Current occupational exposures/hazards: No Pets and animals: Yes (3 dogs) Pets & animals: dog(s) Leisure activites: fishing and other Leisure activities details: sewing, writing, gardening Sexually active: Yes How many partners: 1 Do you think of yourself as: Lesbian/Gautam/Homosexual Current gender identity: Female Latha/Restorationism: Pentecostalism Special latha needs: No Agree to transfusion: Yes Female Reproductive History: Para: 0 Spontaneous abortions: No Physical Exam Const: COMMON NORMALS: no acute distress, patient oriented x3, healthy appearing and alert GENERAL APPEARANCE: cooperative NUTRITIONAL APPEARANCE: obese ORIENTATION/CONSCIOUSNESS: Yes awake OTHER: Patient is sitting upright in a vertical flow recliner in no acute distress. She is able to give history with no difficulty. She is interactive with exam appropriately. No family is at bedside at time of exam HENMT: COMMON NORMALS: normocephalic and atraumatic HEAD & SCALP: normocephalic and atraumatic Chest: CHEST: Yes Symmetrical chest wall rise Resp: COMMON NORMALS: normal respiratory effort EFFORT & INSPECTION: Yes able to speak in complete sentences Extremity: LEFT LOWER EXTREMITY: Yes lower leg Left lower leg: Yes inspection (purplish discoloration to the medial mid-lower leg. Erythema distal) and Yes palpation (significant ttp to purplish discoloration area, mild ttp to erythematous) OTHER: Pedal pulse 2+, capillary refill < 3 sec Neuro: COMMON NORMALS: patient oriented x3 SENSORIUM/ORIENTATION: Yes alert Course Vital Signs: Vital signs: Vital Signs Temperature 98.0 F 10/01/24 15:36 Pulse Rate 86 10/01/24 15:36 Respiratory Rate 17 10/01/24 15:36 Blood Pressure 144/84 10/01/24 15:36 Pulse Oximetry 93 10/01/24 15:36 Oxygen Delivery Me thod Room Air 10/01/24 15:36 MDM - Extremity (Nontraumatic) Medical Decision Making 64yo female presents with pain, swelling, and bruising of the left lower leg. Patient reports she had a fall about a week ago. States she got up in the night to go to the restroom, fell asleep in the restroom, then fell off of the stool. Reports that she did hit her head, but is not having any complications from her head. States she has continued to have pain to the left lower leg, anterior aspect. Reports she also has redness and swelling to the lower portion of her leg. Patient reports she does have a history of diabetes and it is typically her right leg that is red and swollen, not her left. She denies pain to the back of the calf, upper leg, any other concerns at this time. Patient is nontoxic in appearance. Vital signs are stable. 1633: Notified by nurse that patient eloped from ED. Patient left prior to XRAY. No radiology studies performed this visit Discharge Plan Discharge Patient Disposition: Left Against Medical Advice Clinical Impression: Eloped from emergency department, Pain of left leg Condition: Stable Prescriptions: No Action (DME) Blood Glucose Test Strip See Rx Instructions .ROUTE .MEDSUPPLY Qty: 100 1RF Rx Instructions: As directed (DME) oxygen-air delivery systems Device See Rx Instructions .Route Rx Instructions: As directed acetaminophen 325 mg tablet 325 mg PO QID PRN (Reason: Pain) diphenhydramine HCl [Benadryl Allergy] 25 mg tablet 25 mg PO TID PRN (Reason: Allergy Symptoms) ibuprofen 200 mg tablet 200 mg PO Q6H PRN (Reason: Pain) (DME) nebulizer and supplies See Rx Instructions .Route .MEDSUPPLY Qty: 1 0RF Rx Instructions: As directed (DME) back brace See Rx Instructions .Route .MEDSUPPLY Qty: 1 0RF Rx Instructions: As directed (DME) Standard Cpap Device See Rx Instructions .Route Rx Instructions: As directed (DME) FreeStyle Jack 3 [place] Misc See Rx Instructions .Route Qty: 1 0RF Rx Instructions: As directed lactulose [Constulose] 10 gram/15 mL solution 30 g PO TID Qty: 4050 0RF (DME) pen needle, diabetic [BD Ultra-Fine Corine Pen Needle] 32 gauge x 5/32 needle See Rx Instructions .Route Qty: 100 3RF Rx Instructions: use as directed for insulin injections twice daily pilocarpine HCl 5 mg tablet 5 mg PO TID Qty: 90 5RF modafinil 200 mg tablet 200 mg PO QAM Qty: 30 2RF bupropion HCl [Wellbutrin XL] 300 mg tablet extended release 24 hr 300 mg PO QAM Qty: 30 2RF clonazepam 0.5 mg tablet 0.5 mg PO BID PRN (Reason: anxiety) Qty: 60 1RF sertraline [Zoloft] 100 mg tablet 200 mg PO DAILY Qty: 60 2RF quetiapine [Seroquel] 50 mg tablet 50 mg PO .HS Qty: 30 2RF zolpidem [Ambien] 5 mg tablet 5 mg PO BEDTIME PRN (Reason: sleep) Qty: 30 2RF nitroglycerin [Nitrostat] 0.4 mg tablet, sublingual 0.4 mg SUBLINGUAL Q5M PRN (Reason: chest pain) Qty: 25 3RF Rx Instructions: do not exceed 3 doses per episode metoprolol succinate 50 mg tablet extended release 24 hr 50 mg PO DAILY Qty: 90 3RF (DME) blood-glucose meter [Blood Glucose Monitoring] Kit See Rx Instructions .ROUTE .MEDSUPPLY Qty: 1 0RF Rx Instructions: As directed (DME) FreeStyle Jack 2 Sensor Kit See Rx Instructions .ROUTE .MEDSUPPLY Qty: 2 3RF Rx Instructions: pt having hypoglycemia (DME) FreeStyle Jack 2 [place] Misc See Rx Instructions .ROUTE .MEDSUPPLY Qty: 1 0RF Rx Instructions: As directed (DME) afflovest See Rx Instructions .Route .MEDSUPPLY Qty: 1 0RF Rx Instructions: As directed (DME) [facility] See Rx Instructions .Route .MEDSUPPLY Qty: 1 0RF Rx Instructions: As directed atorvastatin 20 mg tablet 20 mg PO BEDTIME Qty: 90 3RF spironolactone 50 mg tablet 50 mg PO DAILY Qty: 90 3RF Xarelto 20 mg tablet 20 mg PO DAILY Qty: 90 3RF lisinopril 40 mg tablet 40 mg PO DAILY Qty: 90 3RF furosemide 40 mg tablet 40 mg PO BID Qty: 180 2RF potassium chloride 20 mEq tablet extended release 20 meq PO DAILY Qty: 90 3RF hydroxychloroquine 200 mg tablet 200 mg PO BID Qty: 180 1RF prednisone 5 mg tablet 5 mg PO DAILY Qty: 90 1RF ondansetron HCl 4 mg tablet 4 mg PO DAILY PRN (Reason: nausea and vomiting) 4 Days Qty: 4 0RF budesonide-formoterol 160-4.5 mcg/actuation HFA aerosol inhaler See Rx Instructions .ROUTE .COMPLEX Qty: 11 0RF Dose Instruction: Inhale 2 puffs by mouth twice daily Rx Instructions: Inhale 2 puffs by mouth twice daily ondansetron HCl 4 mg tablet 4 mg PO DAILY PRN (Reason: nausea and vomiting) 7 Days Qty: 7 0RF (DME) FreeStyle Jack 3 Plus Sensor Device See Rx Instructions .ROUTE .COMPLEX Qty: 2 3RF Dose Instruction: CHANGE EVERY 15 DAYS Rx Instructions: CHANGE EVERY 15 DAYS Combivent Respimat 20-100 mcg/actuation mist See Rx Instructions .ROUTE .COMPLEX Qty: 4 0RF Dose Instruction: INHALE 1 PUFF BY MOUTH EVERY 6 HOURS NEEDED FOR SHORTNESS OF BREATH Rx Instructions: INHALE 1 PUFF BY MOUTH EVERY 6 HOURS NEEDED FOR SHORTNESS OF BREATH Incruse Ellipta 62.5 mcg/actuation blister with device See Rx Instructions .ROUTE .COMPLEX Qty: 30 0RF Dose Instruction: Inhale 1 puff by mouth once daily Rx Instructions: Inhale 1 puff by mouth once daily cholecalciferol (vitamin D3) 1,250 mcg (50,000 unit) capsule See Rx Instructions .ROUTE .COMPLEX Qty: 12 0RF Dose Instruction: Take 1 capsule by mouth once a week Rx Instructions: Take 1 capsule by mouth once a week fluticasone propionate [Flonase Allergy Relief] 50 mcg/actuation spray,suspension 2 spray intranasal DAILY PRN (Reason: allergies) Novolin R FlexPen 100 unit/mL (3 mL) insulin pen See Rx Instructions .ROUTE .COMPLEX Qty: 54 1RF Rx Instructions: Inject, subcut, 3 times daily, after meals, based on sliding scale provided insulin glargine [Lantus Solostar U-100 Insulin] 100 unit/mL (3 mL) insulin pen 40 unit SUBCUT QAM Qty: 67.5 1RF albuterol sulfate 2.5 mg /3 mL (0.083 %) solution for nebulization 2.5 mg inhalation Q6H PRN (Reason: Shortness Of Breath Or Wheezing) albuterol sulfate 90 mcg/actuation HFA aerosol inhaler 2 puff inhalation Q8H PRN (Reason: Shortness Of Breath Or Wheezing) Referrals: [place],Marguerite, [facility] WELDER APPRENTICE [Primary Care Provider, Family Practice] Print Language: Portuguese Coding Level of Care Code ED Family Services Assistant for Cordell Cortez
== END 2024-10-01 16:37 | disposition left against medical advice (07) ==
PROVIDERS: Emergency Provider Nurse Practitioner; PCP Nurse Practitioner Family
DX: M79.605 Pain in left leg (principal); E11.9 Type 2 diabetes mellitus without complications; W18.11XA Fall from or off toilet without subsequent striking against object, initial encounter; Z88.2 Allergy status to sulfonamides; Z88.8 Allergy status to other drugs, medicaments and biological substances; F17.210 Nicotine dependence, cigarettes, uncomplicated; Z53.29 Procedure and treatment not carried out because of patient's decision for other reasons
CPT/HCPCS: 99281

== ENCOUNTER → 2024-10-07 14:27 | Outpatient (BNVA) | payer MEDICAID, SELFPAY ==
[2024-08-25 11:02] VITALS: BP 120/78; BMI 41.2
== END ==
PROVIDERS: PCP Nurse Practitioner Family; Visit Provider Nurse Practitioner Family
DX: N39.0 Urinary tract infection, site not specified (principal)
CPT/HCPCS: 81000

== ENCOUNTER → 2024-10-16 11:06 | Outpatient (BNVA) | payer OTHER, SELFPAY ==
[2024-08-25 11:02] VITALS: BP 120/78; BMI 41.2
== END ==
PROVIDERS: PCP Nurse Practitioner Family; Visit Provider Nurse Practitioner Family
DX: E87.1 Hypo-osmolality and hyponatremia (principal)
CPT/HCPCS: 80053

== ENCOUNTER → 2024-11-02 12:29 | Outpatient (BNVA) | payer MEDICARE, SELFPAY ==
[2024-08-25 11:02] VITALS: BP 120/78; BMI 41.2
== END ==
PROVIDERS: PCP Nurse Practitioner Family; Visit Provider Internal Medicine
DX: E11.42 Type 2 diabetes mellitus with diabetic polyneuropathy (principal); E11.65 Type 2 diabetes mellitus with hyperglycemia; E04.1 Nontoxic single thyroid nodule; E78.5 Hyperlipidemia, unspecified; D35.02 Benign neoplasm of left adrenal gland; I10 Essential (primary) hypertension
CPT/HCPCS: 36415; 80053; 80061; 82088; 83036; 84244; 84681; 86337; 86341; 99214

== ENCOUNTER 2024-11-06 12:24 | Outpatient (CLI) | payer OTHER, MEDICAID, SELFPAY ==
[2024-08-25 11:02] VITALS: BP 120/78; BMI 41.2
--- NOTE | 2024-11-06 12:33 | XR_ITS ---
WS: [email or web address] Exam: XR chest 2V* [id number] Date/Time of Exam: 11/06/2024 12:33 PM Reason For Exam: R06.09 - Other forms of dyspnea Comparison 06/05/2024. There is approximately 25 % pneumothorax of the RIGHT lung. No midline shift or tension noted. There is infiltrate and atelectasis in the RIGHT lower lung zone. The LEFT lung is clear and fully inflated. Normal heart size. The mediastinum is normal in contour. Spondylosis of the thoracic vertebra. Mild thoracic dextroscoliosis. No obvious bony injury. XR/XR chest 2V* [id number] IMPRESSION: 1. 25% pneumothorax of the RIGHT lung. No sign of tension or shift across midli ne. 2. Infiltrate and atelectasis in the RIGHT base and small RIGHT pleural effusio n. These findings were discussed by phone with LILLIE Bui the primary car egiver at 12:50 p.m. 11/06/2024.
== END 2024-11-06 12:25 | disposition home or self-care (01) ==
LOC: RAD 12:30
PROVIDERS: PCP Nurse Practitioner Family; Visit Provider Nurse Practitioner Family
DX: R06.09 Other forms of dyspnea (principal); J93.9 Pneumothorax, unspecified; J98.11 Atelectasis; J98.4 Other disorders of lung; J90 Pleural effusion, not elsewhere classified; M47.894 Other spondylosis, thoracic region; M41.84 Other forms of scoliosis, thoracic region
CPT/HCPCS: 71046

== ENCOUNTER 2024-11-06 13:08 | Emergency (ER) | payer OTHER, MEDICAID, SELFPAY ==
[2024-08-25 11:02] VITALS: BP 120/78; BMI 41.2
[2024-11-06] VITALS (19 sets, daily range): BP systolic 139–188; BP diastolic 74–96; PULSE 65–82; RESP 16–24; TEMP 36.4; O2SAT 88–93; BMI 35.9
--- OUTSIDE RECORDS SUMMARY | 2024-11-06 13:13 | XMS_ITS | Encounter Summary ---
Author Organization [facility] Address [address] [place] [address] Care Team Providers Care Pawn Broker Name Role Phone Non-Staff, Physician Primary Care Provider Unava ilable Encounter Details Date Type Department Care Team (Latest Contact Info) Description 04/01/2019 Ancillary Orders [facility] Admitting [address] [place] [address] Marguerite Wade, HEATING AND BLENDING SUPERVISOR [address] [place] [id number] COPD with exacerbation (CMS/[facility]) Social History Tobacco Use Types Packs/Day Years Used Date Smoking Tobacco: Every Day Cigarettes 1.5 25 Smokeless Tobacco: Never Comments:1.5 packs Alcohol Use Standard Drinks/Week Comments No 0 (1 standard drink = 0.6 oz pur e alcohol) Comments No Sex and Gender Information Value Date Recorded Sex Assigned at Not on file Legal Sex Female 2:51 AM HEALTH POLICY ANALYST Gender Identity Not on file Sexual Orientation Not on file Occupation Industry Job Start Date Job End Date Not on file Not on file Not on file Not on file documented as of this encounter Plan of Treatment Not on file documented as of this encounter Results * XR CHEST PA AND LATERAL 2 VW (04/01/2019 4:18 PM HEALTH POLICY ANALYST) Anatomical Region Laterality Modality Chest Computed Radiogr aphy 04/01/2019 4:18 PM HEALTH POLICY ANALYST Impressions 04/02/2019 11:54 AM HEALTH POLICY ANALYST IMPRESSION: Please see below. Exam: XR CHEST PA AND LATERAL 2 VW Date/Time of Exam: 04/01/2019 4:18 PM Reason For Exam: See Diagnosis. Diagnosis: COPD with exacerbation. Comparison: August 06, 2018. FINDINGS: Cardiomediastinal silhouette is stable. Heart size normal. Trace aortic atheromatous calcification. Lungs show stable mild hyperexpansion and also mild chronic appearing increased interstitium. Old granulomatous residuals. No acute consolidate or effusion. No pneumothorax. Thoracic spondylosis. IMPRESSION: Stable. Nothing active detected. Narrative Procedure Note Danita Yasmany Ruth, DO - 04/02/2019 IMPRESSION: Please see below. Exam: XR CHEST PA AND LATERAL 2 VW Date/Time of Exam: 04/01/2019 4:18 PM Reason For Exam: See Diagnosis. Diagnosis: COPD with exacerbation. Comparison: August 06, 2018. FINDINGS: Cardiomediastinal silhouette is stable. Heart size normal. Trace aortic atheromatous calcification. Lungs show stable mild hyperexpansion and also mild chronic appearing increased interstitium. Old granulomatous residuals. No acute consolidate or effusion. No pneumothorax. Thoracic spondylosis. IMPRESSION: Stable. Nothing active detected. Marguerite Wade HEATING AND BLENDING SUPERVISOR DIAGNOSTIC IMAGING ORDERABL ES Final Result documented in this encounter Visit Diagnoses Diagnosis COPD with exacerbation (CMS/HCC) Obstructive chronic bronchitis with exacerbation COPD with exacerbation (CMS/HCC) Obstructive chronic bronchitis with exacerbation documented in this encounter Care Teams Pawn Broker Relationship Specialty Start Date End Date Non-Staff, Physician NO ADDRESS ON FILE PCP - General 12/15/19 documented as of this encounter
--- OUTSIDE RECORDS SUMMARY | 2024-11-06 13:13 | XMS_ITS | Encounter Summary ---
Author Organization [facility] Address [address] [place] [address] Care Team Providers Care Abrasive Mixer Name Role Phone Non-Staff, Physician Primary Care Provider Unava ilable Encounter Details Date Type Department Care Team (Latest Contact Info) Description 07/21/2004 Outpatient Historical [facility] [address] [place] [address] Marguerite Wade, AGRICULTURE RESEARCH DIRECTOR [address] [place] [address] Benign hypertension (Primary Dx); FLUID OVERLOAD Social History Tobacco Use Types Packs/Day Years Used Date Smoking Tobacco: Never Assessed Comments Unknown Sex and Gender Information Value Date Recorded Sex Assigned at Not on file Legal Sex Female 2:51 AM 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
--- OUTSIDE RECORDS SUMMARY | 2024-11-06 13:13 | XMS_ITS | Encounter Summary ---
Author Organization [facility] Address [address] [place] [address] Care Team Providers Care Data Systems Analyst Name Role Phone Non-Staff, Physician Primary Care Provider Unava ilable Encounter Details Date Type Department Care Team (Latest Contact Info) Description 12/09/2006 Outpatient Historical [facility] Medicine [place] [address] [place] [phone] Brian Lewis NP NO ADDRESS ON FILE Acute Bronchitis (Primary Dx); Unspecified Asthma; Acute Pharyngitis Social History Tobacco Use Types Packs/Day Years Used Date Smoking Tobacco: Never Assessed Comments Unknown Sex and Gender Information Value Date Recorded Sex Assigned at Not on file Legal Sex Female 2:51 AM ETL APPLICATION DEVELOPER Gender Identity Not on file Sexual Orientation Not on file documented as of this encounter Plan of Treatment Not on file documented as of this encounter Visit Diagnoses Diagnosis Acute bronchitis- Primary Unspecified asthma(493.90) Unspecified asthma Acute pharyngitis documented in this encounter Care Teams Data Systems Analyst Relationship Specialty Start Date End Date Non-Staff, Physician NO ADDRESS ON FILE PCP - General 12/15/19 documented as of this encounter
--- OUTSIDE RECORDS SUMMARY | 2024-11-06 13:13 | XMS_ITS | Encounter Summary ---
Author Organization [facility] Address [address] [place] [address] Care Team Providers Care Director Of Reimbursement Name Role Phone Non-Staff, Physician Primary Care Provider Unava ilable Encounter Details Date Type Department Care Team (Latest Contact Info) Description 11/16/2003 Outpatient Historical [facility] Medicine [place] [address] [facility] [address] [place] [phone] Marguerite Wade, RCIS [address] [place] [phone] ACUTE URI NOS (Primary Dx); GONZALEZ'S PALSY Social History Tobacco Use Types Packs/Day Years Used Date Smoking Tobacco: Never Assessed Comments Unknown Sex and Gender Information Value Date Recorded Sex Assigned at Not on file Legal Sex Female 2:51 AM REFERENCE LIBRARY ASSISTANT Gender Identity Not on file Sexual Orientation Not on file documented as of this encounter Plan of Treatment Not on file documented as of this encounter Visit Diagnoses Diagnosis Acute upper respiratory infections of unspecified site- Primary Gonzalez's palsy documented in this encounter Care Teams Director Of Reimbursement Relationship Specialty Start Date End Date Non-Staff, Physician NO ADDRESS ON FILE PCP - General 12/15/19 documented as of this encounter
--- OUTSIDE RECORDS SUMMARY | 2024-11-06 13:13 | XMS_ITS | Encounter Summary ---
Author Organization [facility] Address [address] [place] [address] Care Team Providers Care Supply Officer Name Role Phone Non-Staff, Physician Primary Care Provider Unava ilable Encounter Details Date Type Department Care Team (Latest Contact Info) Description 10/25/2005 Outpatient Historical [facility] Medicine [place] [address] [facility] [address] [place] [address] Marguerite Wade, SUPERVISOR CONCRETE PIPE PLANT [address] [place] [address] Pain in Joint, Shoulder Region (Primary Dx); Urinary Frequency Social History Tobacco Use Types Packs/Day Years Used Date Smoking Tobacco: Never Assessed Comments Unknown Sex and Gender Information Value Date Recorded Sex Assigned at Not on file Legal Sex Female 2:51 AM CALL CIRCUIT WORKER Gender Identity Not on file Sexual Orientation Not on file documented as of this encounter Plan of Treatment Not on file documented as of this encounter Visit Diagnoses Diagnosis Pain in joint, shoulder region- Primary Urinary frequency documented in this encounter Care Teams Supply Officer Relationship Specialty Start Date End Date Non-Staff, Physician NO ADDRESS ON FILE PCP - General 12/15/19 documented as of this encounter
--- OUTSIDE RECORDS SUMMARY | 2024-11-06 13:13 | XMS_ITS | Encounter Summary ---
Author Organization [facility] Address [address] [place] [address] Care Team Providers Care Plant Engineering Supervisor Name Role Phone Non-Staff, Physician Primary Care Provider Unava ilable Encounter Details Date Type Department Care Team (Latest Contact Info) Description 11/10/2003 Outpatient Historical [facility] [address] [place] [address] Marguerite Wade, MANUFACTURING PROCESS ENGINEER [address] [place] [address] SAM'S PALSY (Primary Dx) Social History Tobacco Use Types Packs/Day Years Used Date Smoking Tobacco: Never Assessed Comments Unknown Sex and Gender Information Value Date Recorded Sex Assigned at Not on file Legal Sex Female 2:51 AM IMPACT HAMMER OPERATOR Gender Identity Not on file Sexual Orientation Not on file documented as of this encounter Plan of Treatment Not on file documented as of this encounter Visit Diagnoses Diagnosis Sam's palsy- Primary documented in this encounter Care Teams Plant Engineering Supervisor Relationship Specialty Start Date End Date Non-Staff, Physician NO ADDRESS ON FILE PCP - General 12/15/19 documented as of this encounter
--- OUTSIDE RECORDS SUMMARY | 2024-11-06 13:13 | XMS_ITS | Encounter Summary ---
Author Organization [facility] Address [address] [place] [address] Care Team Providers Care Horticulture Supervisor Name Role Phone Non-Staff, Physician Primary Care Provider Unava ilable Encounter Details Date Type Department Care Team (Late st Contact Info) Description 12/10/2006 Outpatient Historical [facility] [address] [place] [address] Social History Tobacco Use Types Packs/Day Years Used Date Smoking Tobacco: Never Assessed Comments Unknown Sex and Gender Information Value Date Recorded Sex Assigned at Not on file Legal Sex Female 2:51 AM LIGHT OIL OPERATOR Gender Identity Not on file Sexual Orientation Not on file documented as of this encounter Plan of Treatment Not on file documented as of this encounter Visit Diagnoses Not on filedocumented in this encounter Care Teams Horticulture Supervisor Relationship Specialty Start Date End Date Non-Staff, Physician NO ADDRESS ON FILE PCP - General 12/15/19 documented as of this encounter
--- OUTSIDE RECORDS SUMMARY | 2024-11-06 13:13 | XMS_ITS | Encounter Summary ---
Author Organization [facility] Address [address] [place] [address] Care Team Providers Care Form Press Operator Name Role Phone Non-Staff, Physician Primary Care Provider Unava ilable Encounter Details Date Type Department Care Team (Latest Contact Info) Description 07/05/2004 Outpatient Historical [facility] [address] [place] [address] Marguerite Wade, FOOD SAMPLER [address] [place] [address] OTHER CONSTIPATION (Primary Dx); Benign hypertension Social History Tobacco Use Types Packs/Day Years Used Date Smoking Tobacco: Never Assessed Comments Unknown Sex and Gender Information Value Date Recorded Sex Assigned at Not on file Legal Sex Female 2:51 AM CHILDCARE TEACHER Gender Identity Not on file Sexual Orientation Not on file documented as of this encounter Plan of Treatment Not on file documented as of this encounter Visit Diagnoses Diagnosis Other constipation- Primary Benign hypertension Essential hypertension, benign documented in this encounter Care Teams Form Press Operator Relationship Specialty Start Date End Date Non-Staff, Physician NO ADDRESS ON FILE PCP - General 12/15/19 documented as of this encounter
--- OUTSIDE RECORDS SUMMARY | 2024-11-06 13:13 | XMS_ITS | Encounter Summary ---
Author Organization [facility] Address [address] [place] [address] Care Team Providers Care Hat Marker Name Role Phone Non-Staff, Physician Primary Care Provider Unava ilable Encounter Details Date Type Department Care Team (Latest Contact Info) Description 12/12/2006 [facility] [place] [address] [place] [address] Brian Lewis NP NO ADDRESS ON FILE Acute Bronchitis (Primary Dx); Unspecified Asthma; Other Malaise and Fatigue Social History Tobacco Use Types Packs/Day Years Used Date Smoking Tobacco: Never Assessed Comments Unknown Sex and Gender Information Value Date Recorded Sex Assigned at Not on file Legal Sex Female 2:51 AM 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
--- OUTSIDE RECORDS SUMMARY | 2024-11-06 13:13 | XMS_ITS | Encounter Summary ---
Author Organization [facility] Address [address] [place] [address] Care Team Providers Care Rn Field Name Role Phone Non-Staff, Physician Primary Care Provider Unava ilable Encounter Details Date Type Department Care Team (Latest Contact Info) Description 11/24/2003 Outpatient Historical [facility] [address] [place] [address] Marguerite Wade, AUDIO VISUAL SECRETARY [address] [place] [address] ACUTE BRONCHITIS (Primary Dx) Social History Tobacco Use Types Packs/Day Years Used Date Smoking Tobacco: Never Assessed Comments Unknown Sex and Gender Information Value Date Recorded Sex Assigned at Not on file Legal Sex Female 2:51 AM SHIPPING AND RECEIVING SUPERVISOR Gender Identity Not on file Sexual Orientation Not on file documented as of this encounter Plan of Treatment Not on file documented as of this encounter Visit Diagnoses Diagnosis Acute bronchitis- Primary documented in this encounter Care Teams Rn Field Relationship Specialty Start Date End Date Non-Staff, Physician NO ADDRESS ON FILE PCP - General 12/15/19 documented as of this encounter
--- OUTSIDE RECORDS SUMMARY | 2024-11-06 13:14 | XMS_ITS | Encounter Summary ---
Author Organization [facility] Address [address] [place] [address] Care Team Providers Care Dobby Loom Chain Pegger Name Role Phone Unavailable Primary Care Provider Unavailabl e Encounter Details Date Type Department Care Team (Latest Contact Info) Description 08/31/2024 Results Follow-Up [facility] Pulmon[facility] [address] [place] [address] Shannon Anglin NP [address] [place] [address] CBC WITH DIFFERENTIAL, COMPREHENSIVE METABOLIC PANEL, URINALYSIS WITH REFLEX MICROSCOPIC, Additional followed-up results: 30 Social History Tobacco Use Types Packs/Day Years Used Date Smoking Tobacco: Every Day Cigarettes 1.5 53 Smokeless Tobacco: Never Comments:Quit smokin.5 p acks Alcohol Use Standard Drinks/Week Comments No 0 (1 standard drink = 0.6 oz pur e alcohol) Feeling Safe Answer Date Recorded Are you in a relationship wi th someone who hurts you emotionally and/or physically? No 10/02/2024 Food Insecurity Answer Date Recorded Patient needs follow up regardin 09/02/2024 Transportation Needs Answer Date Record ed Patient needs follow up regardin 09/02/2024 Housing Stability Answer Date Recorded Social/Environmental Concerns No concerns Utility Needs Answer Date Recorded Patient needs follow up regardin 09/02/2024 Education Answer Date Recorded What is the highest level of school you have completed or the highest degree you have received? High school graduate 02/02/2023 Comments No Sex and Gender Information Value Date Recorded Sex Assigned at Not on file Legal Sex Female 8:11 AM REFRIGERATED COMPANY DRIVER Gender Identity Not on file Sexual Orientation Not on file documented as of this encounter Plan of Treatment Upcoming Encounters Date Type Department Care Team (Late st Contact Info) Description 11/27/2024 11:00 AM CDT [facility] [place] [address] [facility] [address] [place] [phone] Elisha Stanford MD [address] [facility] [address] [phone] 01/12/2025 11:00 AM CDT [facility] [place] [address] [place] [phone] Shannon Anglin NP [address] [place] [phone] documented as of this encounter Visit Diagnoses Not on filedocumented in this encounter Additional Health Concerns Assessment Noted Time PHQ-9 Depression Total Score: 5 04/20/20 24 6:28 PM REFRIGERATED COMPANY DRIVER documented as of this encounter
--- OUTSIDE RECORDS SUMMARY | 2024-11-06 13:14 | XMS_ITS | Clinical Summary ---
Author Organization [facility] Address [address] [place] [address] Care Team Providers Care Medication Manager Name Role Phone Non-Staff, Physician Primary Care Provider Unava ilable Allergies No known active allergies Medications ARIPiprazole (ABILIFY) 20 mg tablet Take 1 Tablet (20 mg) by mouth daily. 90 Tablet 7 Active gabapentin (NEURONTIN) 600 mg tablet Take 1 Tablet (600 mg) by mouth 3 times daily. 90 Tablet 3 8 Active amLODIPine (NORVASC) 10 mg tabletIndication s:Benign hypertension Take 1 Tablet (10 mg) by mouth daily. 90 Tablet 2 8 Active blood sugar diagnostic StripIndications :Type 2 diabetes mellitus with microalbuminuria , without long-term current use of insulin (CMS/FORMERLY [facility]) Take BS daily before brekfast. 100 Strip 1 8 Active blood sugar diagnostic (ONETOUCH ULTRA TEST) StripIndications :Type 2 diabetes mellitus with microalbuminuria , without long-term current use of insulin (CMS/HCC) Daily before breakfast. 100 Strip 2 8 Active Blood-Glucose Meter (ONETOUCH ULTRAMINI) KitIndications:T ype 2 diabetes mellitus with microalbuminuria , without long-term current use of insulin (CMS/HCC) Test daily before breakfast. 1 Kit 8 Active albuterol HFA 90 mcg inhaler INHALE 1 PUFF BY MOUTH EVERY 4 HOURS NEEDED FOR SHORTNESS OF BREATH.. 6.7 Gram 2 8 Active metoprolol succinate (TOPROL XL) 50 mg Extended Release 24 hour tablet TAKE 1 TABLET BY MOUTH DAILY.. 90 Tablet 1 8 Active Insulin [place], Disposable, (PEN NEEDLE) 31 gauge x 5/16 Needle Use daily.dx:e11.0. 100 Each 2 8 Active PROVENTIL HFA 90 mcg/actuation inhaler INHALE 1 PUFF BY MOUTH EVERY 4 HOURS NEEDED FOR SHORTNESS OF BREATH. 6.7 Gram 11 9 Active lisinopril (PRINIVIL) 40 mg tabletIndication s:per Dr Reyes Take 40 mg by mouth daily . Active chlorthalidone (HYGROTON) 25 mg tablet TAKE 1 TABLET BY MOUTH EVERY DAY. 90 Tablet 1 9 Active insulin glargine (LANTUS SOLOSTAR U-100 INSULIN) 100 unit/mL pen syringeIndicatio ns:Uncontrolled type 2 diabetes mellitus with hypoglycemia without coma (CMS/HCC) INJECT 10 UNITS UNDER THE SKIN EVERY NIGHT AT BEDTIME.. 15 mL 9 Active Additional Information Patient taking differently: 18 Units, INJECT 10 UNITS UNDER THE SKIN EVERY NIGHT AT BEDTIME., Reported on 12/30/2018 mirtazapine (REMERON) 30 mg tablet TK 1 T PO QHS 1 9 Active cpap medical doctor md . Active CPAP / BIPAP suppliesIndicati ons:JOSE MARIA on CPAP,Chronic obstructive pulmonary disease, unspecified COPD type (CMS/HCC) Length of need: 99 months Mask Type: full face with headgear every 6 months, mask only every 3 months, 6 cushions per month. Tubing: heated 1 every 3 months, water chamber 1 every 6 months, chin strap 1 every 6 months, filters disposable 2 per month, filters reusable 1 per 6 months.. 1 Each 9 Active oxygen home deliveryIndicati ons:Nocturnal hypoxia Home Oxygen Concentrator yes at 0 L/M Rest, 0 L/M Activity, 2 L/M Sleep, Delivery Device: Nasal Cannula Portability: no, 0 L/M Rest, 0 L/M Activity, May provide device best for patient needs(E system,home fill, conserving device) Length of Need: 99 months. 1 Each 9 Active metFORMIN (GLUCOPHAGE) 1,000 mg tablet 1500 am 1000 pm 180 Tablet 2 9 Active ipratropium-albu teroL (Combivent Respimat) 20-100 mcg/actuation Mist INHALE 1 PUFF BY MOUTH EVERY 6 HOURS 12 Gram 2 0 Active hydroxyzine HCL (ATARAX) 25 mg tablet Take 25 mg by mouth nightly as needed. 0 Active ONETOUCH DELICA PLUS LANCET 33 gauge TEST BLOOD SUGAR ONCE DAILY BEFORE BREAKFAST. MAKE APPOINTMENT WITH PRIMARY DOCTOR PRIOR TO NEXT REFILL. 100 Each 1 0 Active Wixela Inhub 250-50 mcg/dose disk inhaler TAKE 1 PUFF BY MOUTH EVERY 12 HOURS 60 Each 1 0 Active apixaban (ELIQUIS) 5 mg tablet Take 1 Tablet (5 mg) by mouth 2 times daily. 40 Tablet 0 Active Active Problems Problem Noted Date Diagnosed Date Abnormal chest CT 12/01/2018 Mass of upper lobe of right lung 12/01/2018 Nocturnal hypoxia 11/28/2018 Muscle cramps 11/28/2018 LAD (lymphadenopathy), inguinal 11/28/2018 Mass of upper lobe of right lung 11/28/2018 Multiple thyroid nodules 11/28/2018 Hepatosplenomegaly 11/28/2018 Atherosclerosis 11/28/2018 Ventral hernia 07/14/2015 COPD (chronic obstructive pulmonary disease) 07/2015 JOSE MARIA on CPAP 07/14/2015 Morbid obesity with BMI of 40.0-44.9, adult 07/2015 Overview (02/01/2016): BMI Abnormal high: She was counseled on weight gain. She was counseled on exercise. Assessment & Plan (02/01/2016 1:05 PM CDT): Body mass index is 39.63 kg/(m^2). BMI between 35-40 with 2 or more comorbid conditions: Comorbid conditions related to her obesity include hypertension and diabetes mellitus (status and treatment addressed separately). We talked about the role of morbid obesity in her current health conditions, risk of future morbidity/mortality and the importance of weight loss in improving these conditions and her overall health. Counseled regarding the benefits of a low calorie, well-balanced diet, and daily exercise. Weight management options discussed. Osteoporosis 11/01/2011 Type 2 diabetes mellitus wit h hyperglycemia, with long-term current use of insulin 06/14/2011 Overview (02/01/2016): Lab Results Component Value Date/Time HGBA1C 8.8* 06/16/2015 09:02 AM Lab Results Component Value Date/Time MICRCREATR 397.4 06/28/2015 09:51 AM MICRALBURINE 33.9 06/28/2015 09:51 AM Lab Results Component Value Date/Time CHOLTOT 144 01/12/2014 07:56 AM HDL 32* 01/12/2014 07:56 AM LDLCALC 97 01/12/2014 07:56 AM TRIGLYCERIDE 75 01/12/2014 07:56 AM Assessment & Plan (02/01/2016 1:04 PM CDT): Diabetes: Inadequate control. Medications reviewed and refilled/adjusted as indicated. See medication orders. Labs ordered/reviewed. Reminded to get yearly retinal exam. Addressed ADA/low CHO diet. Encouraged aerobic exercise. 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/2011 Heart murmur 02/09/2011 Tobacco abuse 09/12/2010 Resolved Problems Problem Noted Date Diagnosed Date Resolved Date Acute cystitis without hematuria 05/28/2017 11/28/2018 Influenza A 05/28/2017 11/28/2018 Type 2 diabetes mellitus wit h hyperglycemia, with long-term current use of insulin 07/14/2015 S/P hernia repair 09/17/2011 01/04/2014 Pelvic mass 06/14/2011 01/04/2014 RAD (reactive airway disease) 09/12/2010 11/28/2018 Family History Medical History Relation Name Comments Diabetes Brother 1 Hypertension Brother 1 Lung Cancer Brother 1 Alcohol abuse Brother 2 Drug Abuse Brother 2 Cancer Brother 3 BLADDER CANCER Heart Disease Brother 4 Hypertension Brother 4 Other Father Lung Cancer Maternal Uncle 1 Leukemia Maternal Uncle 2 Heart Disease Mother Healthy Sister Breast Cancer Neg Hx Ovarian Cancer Neg Hx Relation Name Status Comments Brother 1 Brother 2 Brother 3 Alive Brother 4 Alive Daughter NONE Alive Father Maternal Grandmother Maternal Uncle 1 Maternal Uncle 2 Mother Sister Alive Social History Tobacco Use Types Packs/Day Years Used Date Smoking Tobacco: Every Day Cigarettes 1 25 Smokeless Tobacco: Never Tobacco Cessation:Ready to Q uit: Yes Comments:1.5 packs Alcohol Use Standard Drinks/Week Comments No 0 (1 standard drink = 0.6 oz pur e alcohol) Comments No Sex and Gender Information Value Date Recorded Sex Assigned at Not on file Legal Sex Female 2:51 AM GEOSPATIAL TECHNICIAN Gender Identity Not on file Sexual Orientation Not on file Occupation Industry Job Start Date Job End Date Not on file Not on file Not on file Not on file Last Filed Vital Signs Vital Sign Reading Time Taken Comments Blood Pressure 107/74 02/25/2020 10:20 PM CDT Pulse 152 02/25/2020 5:55 PM CDT Temperature 36.7 C (98 F) 02/25/2020 10:20 PM CDT Respiratory Rate 17 02/25/2020 10:20 PM CDT Oxygen Saturation 92% 02/25/2020 10:20 PM CDT Inhaled Oxygen Concentration - - Weight 129.7 kg (286 lb) 02/25/2020 5:30 PM CDT Height 177.8 cm (5' 10 ) 02/25/2020 5:30 PM CDT Body Mass Index 41.04 02/25/2020 5:30 PM CDT Plan of Treatment Health Maintenance Due Date Last Done Comments DTAP/TDAP/TD VACCINES (1 - Tdap) 1979 HPV/Cotest (21-29) 1981 HPV/Cotest (30-65) 1990 FIT-DNA Q 3 years 2005 FIT/FOBT Q 1 year 2005 Flex Sig/CT Colonography Q 5 years 2005 ZOSTER VACCINE (1 of 2) 2010 DIABETES ANNUAL FOOT EXAM 03/12/20192017, 02/27/2016, 02/27/2016 CERVICAL CANCER SCREENING 06/18/2019 PAP SMEAR 06/18/2019 06/18/2016 LDL CHOLESTEROL ANNUAL 07/03/2019 9, 04/29/2018, 2016, Additional history exists DIABETES ANNUAL RETINAL EXAM 12/13/2019 12/12/2018 BREAST CANCER SCREENING 12/18/2019 12/17/2018, 06/18 RSV VACCINE (60+ or ) (1 - Risk 60-74 years 1-dose series) 2020 DIABETES HBA1C Q 6 MONTHS 07/11/20202019, 11/28/2018, 03/11/2018, Additional history exists DIABETES MICROALBUMIN ANNUAL SCREEN 01/10/2021 01/11/2020, 07/03/2018, 03/05/2018, Additional history exists INFLUENZA VACCINE (#1) 2023 03/11/2018, 2017 COLORECTAL SCREENING 08/03/2024 08/03/2014 Colorectal Cancer Screening 08/03/2024 Medical Devices Implanted Type Area Apprentice Embalmer Device Identifier Shelf Expiration Date Model / Serial / Lot Mesh Marlex Sheet [id number] - [id number] Implanted:Qty: 1 on 07/15/2015 by Doc Bolton MD at [facility] Mesh N/A: Abdomen CR [employer] 08/11/2015 [id number] / / [id number] Procedures Procedure Name Priority Date/Time Associated Diagnosis Comments HEMOGLOBIN A1C Routine 01/12/2020 9:19 AM CDT Type 2 diabetes mellitus with hyperglycemia, with long-term current use of insulin (CMS/HCC) MICROALBUMIN/CREATI NINE RATIO, RANDOM UR Routine 01/11/2020 9:29 AM CDT Chronic kidney disease, stage II (mild) MAMMO SCREEN BILAT W OR WO CAD Routine 12/17/2018 1:44 PM CDT Screening for breast cancer LIPID PANEL Routine 07/03/2018 11:24 AM GEOSPATIAL TECHNICIAN Uncontrolled type 2 diabetes mellitus with hypoglycemia without coma (CMS/HCC) ENDOSCOPY, COLON, SCREENING Routine 08/03/2014 from Last 3 Months or Most Recently Relevant to Health Maintenance Results * (ABNORMAL) HEMOGLOBIN A1C (01/12/2020 9:19 AM CDT) HEMOGLOBIN A1C 8.7(H) <=5.6 % 01/12/2020 5:01 PM CDT [facility] EST. AVG GLUCOSE, A1C 203 mg/dL 01/12/2020 5:01 PM CDT [facility] Blood Venipuncture / Unknown 01/12/2020 9:19 AM CDT 01/12/2020 2:38 PM CDT [facility] - 01/12/2020 5:01 PM CDT HGB A1C INTERPRETATION NORMAL: <5.7% PRE-DIABETES: 5.7 - 6.4% DIABETES: 6.5% OR GREATER us Marguerite MOREIRA CHEMISTRY ORDERABLES Final Result Performing Organization Address [facility] de Phone Number [facility] # [id number] [address] [place] [id number] * (ABNORMAL) MICROALBUMIN/CREATININE RATIO, RANDOM UR (01/11/2020 9:29 AM CDT) MICROALBUMIN, URINE 10.3 No Reference Range mg/dL 01/11/2020 10:30 AM [facility] CREATININE, URINE 22.8(L) 29.0 - 226.0 mg/dL 01/11/2020 10:30 AM [facility] Comment:Reference Range vari es with fluid intake and diet. MICROALBUMIN/ CREAT RATIO, UR 451.8(H) <25.0 mg/g 01/11/2020 10:30 AM [facility] Urine URINE SPECIMEN OBTAINED BY CLEAN CATCH PROCEDURE / Unknown Collection / Unknown 01/11/2020 9:29 AM CDT 01/11/2020 9:29 AM CDT [facility] - 01/11/2020 10:30 AM CDT Condition Microalbumin/Creat ratio Normal Males <17 Normal Females <25 Microalbuminuria Males 17-299 Microalbuminuria Females 25-299 Overt proteinuria >=300 us Mendez Reyes MD URINE ORDERABLES Final Resul t Performing Organization Address [facility]/ZIP Co de Phone Number [facility] # [id number] [address] [place] [id number] * MAMMO SCREEN BILAT W OR WO CAD (12/17/2018 1:44 PM CDT) Anatomical Region Laterality Modality Breast Bilateral Mammography 12/17/2018 1:53 PM CDT Impressions 12/18/2018 9:58 AM CDT : Superficial mass inferior medially, anteriorly, on the left, will require additional evaluation. Patient will be contacted by the [facility] to schedule the recommended follow-up appointment. [id number] Narrative 12/18/2018 9:58 AM CDT Bilateral Digital Screening Mammogram: Screening mammogram on this 58-year-old female is presented. We have no previous for comparison. Breast tissue is of fatty density and asymmetrical. Benign-appearing calcifications are noted bilaterally. There is a lobulated mass lower medially on the left, superficially located, with some adjacent calcifications. No other area of suspicion on either side is seen. This digital mammogram was also analyzed by the Computer Aided Detection System (CAD), The car easily beat ImageChecker, Version 8.3. us Shaun Briones MD MAMMO ORDERABLES Final Re sult * (ABNORMAL) LIPID PANEL (07/03/2018 11:24 AM GEOSPATIAL TECHNICIAN) CHOLESTEROL 156 <200 mg/dL 07/03/2018 12:29 PM [facility] TRIGLYCERIDE 156(H) <150 mg/dL 07/03/2018 12:29 PM [facility] HDL 41 40 - 59 mg/dL 07/03/2018 12:29 PM [facility] LDL CALCULATED 84 <100 mg/dL 07/03/2018 12:29 PM [facility] NON-HDL CHOLESTEROL 115 <130 mg/dL 07/03/2018 12:29 PM [facility] Blood Venipuncture / Unknown 07/03/2018 11:24 AM GEOSPATIAL TECHNICIAN 07/03/2018 11:24 AM [facility] - 07/03/2018 12:29 PM GEOSPATIAL TECHNICIAN TOTAL CHOLESTEROL mg/dL Desirable <200 Borderline high 200-239 High >=240 TRIGLYCERIDES mg/dL Normal <150 Borderline high 150-199 High 200-499 Very high >=500 HDL CHOLESTEROL mg/dL Low <40 Normal 40-59 Desirable >=60 NON HDL CHOLESTEROL mg/dL Optimal <130 Near Optimal 130-159 Borderline High 160-189 Very High >=190 Calculated LDL mg/dL Optimal <100 Near Optimal 100-129 Borderline High 130-159 High 160-189 Very High >=190 ATPIII Guidelines Reference Ranges for Lipid Panels (NCEP/AMA) Marguerite Wade GEAR GRINDER CHEMISTRY ORDERABLES Final Result [facility] CLIA # [id number] [address] [address] * ENDOSCOPY, COLON, SCREENING (08/03/2014) Marguerite Vanegas [place] GEAR GRINDER GI PROCEDURE ORDERABLES Fin al Result from Last 3 Months or Most Recently Relevant to Health Maintenance Insurance [place]ID [place] [facility] [employer] HMO [facility] * Guarantor: [id number] Account Type Relation to Patient Date of Phone Billing Address Workers Comp Employer [employer] [address] [place] [address] WORKERS COMP Advance Directives For more information, please contact: [phone] * Full Code (Latest Code Status on File) Date Activated Date Inactivated Comments 12/09/2018 7:32 AM 12/09/2018 1:04 PM * Full Code Date Activated Date Inactivated Comments 05/28/2017 4:05 PM 05/30/2017 1:59 PM Care Teams Medication Manager Relationship Specialty Start Date End Date Non-Staff, Physician NO ADDRESS ON FILE PCP - General 12/15/19
--- OUTSIDE RECORDS SUMMARY | 2024-11-06 13:14 | XMS_ITS | Encounter Summary ---
Author Organization [email or web address] Address [address] [place] [address] Care Team Providers Care Electronic Assembly Name Role Phone Non-Staff, Physician Primary Care Provider Unava ilable Encounter Details Date Type Department Care Team (Late st Contact Info) Description 01/12/2020 Ancillary Orders [facility] [place] [address] [place] [address] Marguerite Wade, ICT PROJECT MANAGER [address] [place] [address] Wheezing Social History Tobacco Use Types Packs/Day Years Used Date Smoking Tobacco: Every Day Cigarettes 1 25 Smokeless Tobacco: Never Comments:1.5 packs Alcohol Use Standard Drinks/Week Comments No 0 (1 standard drink = 0.6 oz pur e alcohol) Comments No Sex and Gender Information Value Date Recorded Sex Assigned at Not on file Legal Sex Female 2:51 AM PELLETIZER Gender Identity Not on file Sexual Orientation Not on file Occupation Industry Job Start Date Job End Date Not on file Not on file Not on file Not on file COVID-19 Exposure Response Date Recorded In the last month, have you been in contact with someone who was confirmed or suspected to have Coronavirus / COVID-19? No / Unsure 01/12/2020 2:33 PM CDT documented as of this encounter Plan of Treatment Not on file documented as of this encounter Results * XR CHEST PA AND LATERAL 2 VW (01/12/2020 2:52 PM CDT) Anatomical Region Laterality Modality Chest Computed Radiogr aphy 01/12/2020 2:52 PM CDT Impressions 01/12/2020 4:02 PM CDT IMPRESSION: Please see below. Exam: XR CHEST PA AND LATERAL 2 VW Date/Time of Exam: 01/12/2020 2:52 PM Reason For Exam: See Diagnosis. Diagnosis: Wheezing. Findings: Comparison 08/24/2019. Increased pulmonary interstitial markings again noted. No focal or acute pulmonary pathology. No pleural effusion. Heart size top limits of normal. Pulmonary vasculature is also top limits of normal. Mild degenerative change noted of the spine. IMPRESSION: Increased interstitium. No acute pathology. [id number] Narrative Procedure Note Hiro Jain MD - 01/12/2020 IMPRESSION: Please see below. Exam: XR CHEST PA AND LATERAL 2 VW Date/Time of Exam: 01/12/2020 2:52 PM Reason For Exam: See Diagnosis. Diagnosis: Wheezing. Findings: Comparison 08/24/2019. Increased pulmonary interstitial markings again noted. No focal or acute pulmonary pathology. No pleural effusion. Heart size top limits of normal. Pulmonary vasculature is also top limits of normal. Mild degenerative change noted of the spine. IMPRESSION: Increased interstitium. No acute pathology. [id number] Marguerite Wade ICT PROJECT MANAGER DIAGNOSTIC IMAGING ORDERABL ES Final Result documented in this encounter Visit Diagnoses Diagnosis Wheezing Wheezing documented in this encounter Care Teams Electronic Assembly Relationship Specialty Start Date End Date Non-Staff, Physician NO ADDRESS ON FILE PCP - General 12/15/19 documented as of this encounter
--- OUTSIDE RECORDS SUMMARY | 2024-11-06 13:14 | XMS_ITS | Clinical Summary ---
Author Organization [facility] Address [address] [place] [phone] Care Team Providers Care Pricing Director Name Role Phone Unavailable Primary Care Provider Unavailabl e Allergies Active Allergy Reactions Criticality Noted Date Comments Quinine Other (See Comments) 02/02/2023 Lowered platelet - petechiae Ropinirole Unknown 12/17/2022 Doesn't remember Medications Insulin [place], Disposable, 31 gauge x 5/16 Needle Use daily.dx:e11.0. 100 Each 2 8 Active lisinopriL (PRINIVIL) 40 mg tablet Take 40 mg by mouth daily . 9 Active amLODIPine (NORVASC) 10 mg tabletIndication s:Benign hypertension Take 1 Tablet (10 mg) by mouth daily. 90 Tablet 2 8 Active lancets (OneTouch Delica Plus Lancet) 33 gauge TEST BLOOD SUGAR ONCE DAILY BEFORE BREAKFAST. MAKE APPOINTMENT WITH PRIMARY DOCTOR PRIOR TO NEXT REFILL. 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 9 Active oxygen home deliveryIndicati ons:Nocturnal hypoxia Home Oxygen Concentrator yes at 0 L/M Rest, 0 L/M Activity, 2 L/M Sleep, Delivery Device: Nasal CannulaPortabili ty: no, 0 L/M Rest, 0 L/M Activity, May provide device best for patient needs(E system,home fill, conserving device)Length of Need: 99 months. 1 Each 0 9 Active ipratropium-albu teroL (COMBIVENT RESPIMAT) 20-100 mcg/actuation Mist INHALE 1 PUFF BY MOUTH EVERY 6 HOURS 12 Gram 2 0 Active blood sugar diagnostic StripIndications :Type 2 diabetes mellitus with microalbuminuria , without long-term current use of insulin (CMS/HCC) Daily before breakfast. 100 Strip 2 8 Active albuterol HFA 90 mcg inhaler INHALE 1 PUFF BY MOUTH EVERY 4 HOURS NEEDED FOR SHORTNESS OF BREATH.. 6.7 Gram 2 8 Active Blood-Glucose Meter KitIndications:T ype 2 diabetes mellitus with microalbuminuria , without long-term current use of insulin (CMS/HCC) Test daily before breakfast. 1 Kit 0 8 Active blood sugar diagnostic StripIndications :Type 2 diabetes mellitus with microalbuminuria , without long-term current use of insulin (CMS/HCC) Take BS daily before brekfast. 100 Strip 1 8 Active buPROPion HCL (WELLBUTRIN XL) 300 mg Extended Release 24 hour tablet Take 300 mg by mouth daily in the morning. Active spironolactone (ALDACTONE) 50 mg tablet Take 50 mg by mouth daily. Active budesonide-formo teroL (SYMBICORT) 160-4.5 mcg/actuation HFA Aerosol Inhaler Take 2 Puffs by inhalation 2 times daily. Active rivaroxaban (Xarelto) 20 mg Tablet Take 20 mg by mouth daily with supper. Active FUROSEMIDE ORAL Take 40 mg by mouth 2 times daily. Active sertraline HCl (SERTRALINE ORAL) Take 100 mg by mouth daily. Active modafiniL (PROVIGIL) 200 mg Tablet Take 200 mg by mouth daily. Every AM Active zolpidem (AMBIEN) 5 mg tablet Take 5 mg by mouth nightly as needed for Insomnia. Active atorvastatin (LIPITOR) 20 mg tablet Take 20 mg by mouth daily at bedtime. Every AM Active clonazePAM (KlonoPIN RAPID DISSOLVE) 0.5 mg Tablet, Rapid Dissolve Take 0.5 mg by mouth 1 time daily as needed for Anxiety. 3 Active naloxone (NARCAN) 4 mg/spray [place], Non-Aerosol EMERGENCY USE ONLY: Administer 1 spray (4 mg) in one nostril one time. May repeat in alternating nostrils every 2-3 min until responsive or EMS arrives. 2 Each 4 Active hydroxychloroqui ne (PLAQUENIL) 200 mg tablet Take 200 mg by mouth 2 times daily. Active pilocarpine (SALAGEN) 5 mg Tablet Take 5 mg by mouth 3 times daily. Active acetaminophen (TYLENOL) 325 mg tablet Take 325 mg by mouth every 6 hours as needed for Pain. Active albuterol (PROVENTIL,NICO IRVING) 2.5 mg /3 mL (0.083 %) Solution for Nebulization Take 2.5 mg by inhalation every 6 hours as needed for Shortness of Breath. Active cholecalciferol 1,250 mcg (50,000 unit) Capsule Take 50,000 Units by mouth every 7 days. Active insulin NPH human (HUMULIN N,NOVOLIN N) 100 unit/mL pen syringe Inject 20 Units by subcutaneous injection 3 times daily with meals. Active nitroglycerin (NITROSTAT) 0.4 mg Tablet, Sublingual Place 0.4 mg under tongue every 5 minutes as needed for Chest Pain. Active potassium chloride (KLOR-CON M20) 20 mEq Extended Release tablet Take 20 mEq by mouth daily. Active umeclidinium (INCRUSE ELLIPTA) 62.5 mcg/actuation Disk with Device Take 1 Puff by inhalation daily. Active metoprolol succinate (TOPROL XL) 50 mg Extended Release 24 hour tablet Take 0.5 Tablets (25 mg) by mouth daily. Believed this was taken off due to slow HR 30 Tablet 4 Active ondansetron (ZOFRAN) 4 mg Tablet Take 4 mg by mouth every 6 hours as needed. 5 Active inhalational spacing device (Microchamber) Spacer Use with Symbicort/[place] rol 1 Each 4 5 Active CPAP / [facility]IP[facility] supplies [facility] IPAP=12cwp, EPAP=8cwp, Timin=0.4s, Timax=1.2s, trigger=low, cycle=high with 3L oxygen supplement,Lengt h of need: 99 months Mask Type: per patient comfort with headgear every 6 months, mask only every 3 months,as needed cushions per month. Tubing: heated 1 every 3 months, water chamber 1 every 6 months, chin strap 1 every 6 months, filters disposable 2 per month, filters reusable 1 per 6 months.Efficacy data download and mask fitting. Please link efficiency data download to Dr. Stanford account. Diagnosis: G47.33 1 Each 5 Active insulin glargine (LANTUS) 100 unit/mL pen syringeIndicatio ns:Uncontrolled type 2 diabetes mellitus with hypoglycemia without coma (CMS/HCC) Inject 65 Units by subcutaneous injection daily with breakfast. Please follow-up closely with PCP for further dose adjustments 15 mL 5 Active NovoLIN R FlexPen 100 unit/mL (3 mL) Insulin Pen Inject 0-18 Units by subcutaneous injection 3 times daily before meals. Please measure blood sugar and give Novolin accordingly. Less than or equal to 180 = no correctional insulin. If 181 - 200 = give and/or add 3 units, If 201 - 250 = give and/or add 6 units, If 251 - 300 = give and/or add 9 units, If 301 - 350 = give and/or add 12 units, If 351 - 400 = give and/or add 15 units, If 401 and greater = give and/or add 18 units 3 mL 5 Active lactulose (ENULOSE) 10 gram/15 mL oral solution Take 45 mL by mouth 3 times daily as needed for Constipation. 237 mL 5 Active polyethylene glycol 3350 (MIRALAX) 17 gram/dose Powder Take 1 Scoop (17 Grams) by mouth 1 time daily as needed for Constipation. 238 Gram 5 Active sennosides-docus ate sodium (SENNA-S) 8.6-50 mg tablet Take 1 Tablet by mouth 1 time daily as needed for Constipation. 30 Tablet 5 Active QUEtiapine (SEROquel) 50 mg tablet Take 50 mg by mouth daily at bedtime. 5 Active FreeStyle Jack 3 Plus Sensor Device CHANGE EVERY 15 DAYS 5 Active FreeStyle Jack 3 [place] use as directed 5 Active Active Problems Problem Noted Date Diagnosed Date Alpha-gal syndrome 09/14/2024 Emphysematous cystitis 09/11/2024 Benign hypertension 09/11/2024 Tobacco abuse counseling 09/11/2024 Altered mental status 08/29/2024 UTI (urinary tract infection) 08/29/2024 Obesity 08/29/2024 COPD (chronic obstructive pulmonary disease) Acute metabolic encephalopathy 08/29/2024 Polypharmacy 08/29/2024 History of pneumothorax 07/14/2024 Mood disorder 04/21/2024 Pneumonia 04/21/2024 Dizziness 04/21/2024 Hyponatremia 04/20/2024 Stroke-like symptoms 04/20/2024 Community acquired pneumonia of right upper lobe of lung 02/10/2024 ILD (interstitial lung disease) 12/10/2023 Sjogren's syndrome 12/10/2023 Hyperlipidemia 12/05/2023 Chronic anticoagulation 12/05/2023 Influenza B 05/21/2023 Acute cystitis 05/21/2023 CHF (congestive heart failure) 05/21/2023 Cellulitis of right lower extremity 02/02/2023 Sepsis 02/02/2023 Pneumonia of both lower lobes 02/02/2023 Pneumonia due to gram-positive bacteria 11/18/19 Acute on chronic hypoxic respiratory failure 11/2020 Paroxysmal atrial fibrillation 11/15/2020 Hypoxemia 11/14/2020 Pneumothorax 11/14/2020 Chest pain 11/14/2020 Dyspnea 11/14/2020 Acute exacerbation of chroni c obstructive pulmonary disease (COPD) 11/13/2020 Primary spontaneous pneumothorax 11/13/2020 Mass of upper lobe of right lung 12/01/[address] 12/01/2018 Hepatosplenomegaly 11/28/2018 Atherosclerosis 11/28/2018 Nocturnal hypoxia 11/28/2018 Muscle cramps 11/28/2018 LAD (lymphadenopathy), inguinal 11/28/2018 Multiple thyroid nodules 11/28/2018 Acute cystitis without hematuria 05/28/2017 Ventral hernia 07/14/2015 JOSE MARIA on CPAP 07/14/2015 Moderate COPD (chronic obstructive pulmonary dis ease) 07/14/2015 Morbid obesity with BMI of 40.0-44.9, adult 07/2015 Overview (09/08/2020): BMI Abnormal high: She was counseled on weight gain. She was counseled on exercise. Osteoporosis 11/01/2011 Type 2 diabetes mellitus wit h hyperglycemia, with long-term current use of insulin 06/14/2011 Overview (09/08/2020): Lab Results Component Value Date/Time HGBA1C 8.8* 06/16/2015 09:02 AM Lab Results Component Value Date/Time MICRCREATR 397.4 06/28/2015 09:51 AM MICRALBURINE 33.9 06/28/2015 09:51 AM Lab Results Component Value Date/Time CHOLTOT 144 01/12/2014 07:56 AM HDL 32* 01/12/2014 07:56 AM LDLCALC 97 01/12/2014 07:56 AM TRIGLYCERIDE 75 01/12/2014 07:56 AM 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/2011 Heart murmur 02/09/2011 Tobacco abuse 09/12/[address] Resolved Problems Problem Noted Date Diagnosed Date Resolved Date Somnolence 05/21/2023 05/23/2023 Influenza A 05/28/2017 11/28/2018 Type 2 diabetes mellitus wit h hyperglycemia, with long-term current use of insulin 07/14/2015 S/P hernia repair 09/17/2011 01/04/2014 Pelvic mass 06/14/2011 01/04/2014 RAD (reactive airway disease) 09/12/2010 11/28/2018 Encounters Date Type Department Care Team Description 10/13/[address] Entrance B, [address] [place] [phone] Salvatore Oakley MD Referral 10/06/2024 9:45 AM CDT Office Visit [address] Entrance B, 3[address] [place] [address] Salvatore Oakley MD Right renal atrophy (Primary Dx); Ureteropelvic junction (UPJ) obstruction; Ureteropelvic junction (UPJ) obstruction, right 10/02/2024 5:26 AM CDT - 10/02/2024 6:40 AM CDT Emergency [facility] Emergency Medicine [address] [place] [phone] Sher Olson MD Contusion of left lower leg, initial encounter (Primary Dx) Discharge Disposition: Home or Self Care 10/02/2024 Travel 09/29/2024 12:34 PM CDT - 09/29/2024 11:59 PM CDT Hospital Encounter [facility] Nuclear Medicine [address] [place] [address] Karly Fox PA Discharge Disposition: Home or Self Care 09/14/2024 Orders Only [facility] Urology- [place] [address] Entrance B, 3rd [place] [phone] Karly Fox PA Right renal atrophy (Primary Dx) 09/11/2024 3:10 PM CDT - 09/11/2024 4:[address] [facility] Operating Room [facility] [place] [address] Ramirez Damian MD CYSTOURETHROSCOPY URETERAL STENT INSERTION 09/11/2024 12:06 PM CDT Anesthesia Event [facility] Operating Room [address] [place] [address] Gabriel Dockery MD Greene, Ronald T, CRNA 09/11/2024 2:32 AM CDT - 09/14/2024 4:31 PM CDT Hospital Encounter [facility] 3A Surgical [address] [place] [phone] Ravin Diaz MD Patel, Taksh, MD Haq, MD Luis Fernando Emphysematous cystitis Discharge Disposition: Home or Self Care 09/11/2024 - 09/11/2024 11:59 PM CDT Hospital Encounter [facility] Emergency Medical Services [address] [phone] Doc Finnegan MD Ambulance, [facility] Discharge Disposition: [facility] 09/10/2024 6:15 PM CDT - 09/11/2024 12:50 AM CDT Emergency [facility] Emergency Medicine [address] [place] [phone] Rajiv Landeros DO Hyponatremia (Primary Dx); Emphysematous cystitis Discharge Disposition: Acute Care Hospital 09/01/2024 External Device Data STL ABSTRACTION Provider, Abstract 09/01/2024 External Device Data STL ABSTRACTION Provider, Abstract 08/31/2024 Results Follow-Up [facility] Pulmonology [address] [place] [phone] Shannon Anglin, RITU CBC WITH DIFFERENTIAL, COMPREHENSIVE METABOLIC PANEL, URINALYSIS WITH REFLEX MICROSCOPIC, Additional followed-up results: 30 08/28/2024 3:20 PM CDT - 08/30/2024 6:13 PM CDT Hospital Encounter [facility] 4B Cardiac [address] [place] [phone] Jean Moeller, Juan Norman, DO Kim, Evan French, DO Diaz, Ravin Fitch MD Lulú, MD Luis Fernando Altered mental status Discharge Disposition: Home or Self Care 08/28/2024 12:15 AM CDT - 08/28/2024 11:59 PM CDT Hospital Encounter [facility] Emergency Medical Services [place] [address] [place] [phone] Ambulance, [facility] Discharge Disposition: [facility] 08/28/2024 - 08/28/2024 11:59 PM CDT Hospital Encounter [facility] Life Line [facility] [address] [place] [address] Ambulance, [facility] Discharge Disposition: [facility] 08/28/2024 Travel 08/25/2024 External Device Data STL ABSTRACTION Provider, Abstract 08/25/2024 External Device Data STL ABSTRACTION Provider, Abstract 08/20/2024 Orders Only [facility] Sleep Center [place] [address] [place] [phone] Elisha Stanford MD 08/19/2024 Chart Note [facility] Neurology [place] [address] [facility] [address] [place] [phone] Elisha Stanford MD 08/17/2024 7:20 PM CDT - 08/17/2024 11:59 PM CDT Hospital Encounter [facility] [address] [place] [address] Elisha Stanford MD Discharge Disposition: Home or Self Care from Last 3 Months Immunizations Immunization Administration Dates Next Due (ADACEL/BOOSTRIX)(10 YR UP) TDAP VACCINE, 0.5ML, IM 09/10/2022 Family History Medical History Relation Name Comments Alcohol abuse Brother 1 Drug Abuse Brother 1 Cancer Brother 2 BLADDER CANCER Diabetes Brother 3 Hypertension Brother 3 Lung Cancer Brother 3 Other Father GSW Leukemia Maternal Uncle 1 Lung Cancer Maternal Uncle 2 Heart Disease Mother Healthy Sister Breast Cancer Neg Hx Ovarian Cancer Neg Hx Relation Name Status Comments Brother 1 Brother 2 Alive Brother 3 Father Maternal Grandmother Maternal Uncle 1 Maternal Uncle 2 Mother Sister Social History Tobacco Use Types Packs/Day Years Used Date Smoking Tobacco: Every Day Cigarettes 1.5 53 Smokeless Tobacco: Never Tobacco Cessation:Ready to Q uit: Not Asked; Counseling Given: Not Answered Comments:Quit smokin.5 packs Alcohol Use Standard Drinks/Week Comments No [...] on file 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 Gender Identity Not on file Sexual Orientation Not on file Last Filed Vital Signs Vital Sign Reading Time Taken Comments Blood Pressure 137/47 10/02/2024 6:30 AM CDT Pulse 70 10/02/2024 6:30 AM CDT Temperature 36.4 C (97.6 F) 10/02/2024 5:30 AM CDT Respiratory Rate 18 10/02/2024 6:30 AM CDT Oxygen Saturation 93% 10/02/2024 6:30 AM CDT Inhaled Oxygen Concentration - - Weight 129.8 kg (286 lb 3.2 oz) 10/02/2024 5:30 AM CDT Height 182.9 cm (6') 10/02/2024 5:30 AM CDT Body Mass Index 38.82 10/02/2024 5:30 AM CDT Plan of Treatment Upcoming Encounters Date Type Department Care Team (Late st Contact Info) Description 11/27/2024 11:00 AM CDT [employer] [place] [facility] [place] [address] [place] [address] Elisha Stanford MD [address] [facility] [place] [phone] 01/12/2025 11:00 AM CDT [employer] [place] [facility] [employer] [address] [place] [phone] Shannon Anglin NP [address] [place] [address] Health Maintenance Due Date Last Done Comments ZOSTER VACCINE (1 of 2) 1979 HPV/Cotest (21-29) 1981 CERVICAL CANCER SCREENING 1990 HPV/Cotest (30-65) 1990 PAP SMEAR 1990 FIT-DNA Q 3 years 2005 FIT/FOBT Q 1 year 2005 Flex Sig/CT Colonography Q 5 years 2005 Lung Cancer Screening 2010 DIABETES ANNUAL FOOT EXAM 03/12/2019 03/12/2018, DIABETES ANNUAL RETINAL EXAM 12/13/2019 12/12/2018 RSV VACCINE (60+ or ) (1 - Risk 60-74 years 1-dose series) 2020 DIABETES MICROALBUMIN ANNUAL SCREEN 01/10/2021 01/11/2020, 07/03/2018, 03/05/2018, Additional history exists BREAST CANCER SCREENING 02/07/2021 02/08/20 20, 12/17/2018, 12/17/2018 COVID-19 Vaccine (3 - Modern a risk series) 08/16/2021 07/19/2021, 06/21/2021 INFLUENZA VACCINE (#1) 2023 03/11/2018, 2017 DIABETES HBA1C Q 6 MONTHS 10/19/20242023, 12/05/2023, 05/21/2023, Additional history exists LDL CHOLESTEROL ANNUAL 04/21/2025 , 12/05/2023, 11/15/2020, Additional history exists COLORECTAL SCREENING 12/09/2028 12/09/2018, 08/03/2014, 08/03/2014 Colorectal Cancer Screening 12/09/2028 DTAP/TDAP/TD VACCINES (2 - T d or Tdap) 09/10/2032 09/10/2022 Medical Devices Implanted Type Area Senior Oracle Adf Developer Device Identifier Shelf Expiration Date Model / Serial / Lot Mesh Marlex Sheet [id number] - [id number] Implanted:Qty: 1 on 07/15/2015 by Doc Bolton MD Mesh N/A: Abdomen CR [employer] 08/11/2015 [id number] / / [id number] Stent Contour [id number] - [id number] Implanted:Qty: 1 on 09/11/2024 by Ramirez Damian MD at [facility] Stent Right: Ureter [employer]- UROLOGY/TERMITE CONTROL SERVICE REPRESENTATIVE [id number] 04/28/2027 [id number] / / [id number] Procedures Procedure Name Priority Date/Time Associated Diagnosis Comments XR TIBIA AND FIBULA 2 VW LEFT Stat 10/02/2024 6:02 AM CDT D-DIMER Stat 10/02/2024 5:38 AM CDT COMPREHENSIVE METABOLIC PANEL Stat 10/02/2024 5:38 AM CDT CBC WITH DIFFERENTIAL Stat 10/02/2024 5:38 AM CDT NM RENOGRAM W FLOW AND FUNCTION Routine 09/29/2024 2:04 PM CDT Right renal atrophy TELEMETRY REPORT 09/15/2024 3:02 AM CDT POC GLUCOSE Routine 09/14/2024 12:09 PM CDT POC GLUCOSE Routine 09/14/2024 7:35 AM CDT BASIC METABOLIC PANEL Routine 09/14/2024 1:08 AM CDT CBC WITH DIFFERENTIAL Routine 09/14/2024 1:08 AM CDT POC GLUCOSE Routine 09/13/2024 5:46 PM CDT POC GLUCOSE Routine 09/13/2024 12:37 PM CDT SODIUM LEVEL Routine 09/13/2024 8:12 AM CDT POC GLUCOSE Routine 09/13/2024 7:56 AM CDT BASIC METABOLIC PANEL Routine 09/13/2024 2:18 AM CDT CBC WITH DIFFERENTIAL Routine 09/13/2024 2:18 AM CDT SODIUM LEVEL Routine 09/12/2024 8:02 PM CDT POC GLUCOSE Routine 09/12/2024 5:25 PM CDT SODIUM LEVEL Routine 09/12/2024 3:19 PM CDT POC GLUCOSE Routine 09/12/2024 12:10 PM CDT SODIUM LEVEL Routine 09/12/2024 11:33 AM CDT POC GLUCOSE Routine 09/12/2024 7:37 AM CDT URIC ACID Routine 09/12/2024 7:29 AM CDT SODIUM LEVEL Routine 09/12/2024 7:29 AM CDT SODIUM LEVEL Routine 09/12/2024 12:51 AM CDT SODIUM LEVEL Routine 09/11/2024 8:33 PM CDT POC GLUCOSE Routine 09/11/2024 5:27 PM CDT SODIUM LEVEL Routine 09/11/2024 4:03 PM CDT SODIUM, RANDOM URINE Routine 09/11/2024 4:02 PM CDT OSMOLALITY, URINE Routine 09/11/2024 4:0 2 PM CDT MA CYSTO W/INSERT URETERAL STENT 09/11/2024 3:10 PM CDT POC GLUCOSE Routine 09/11/2024 1:11 PM CDT URINE CULTURE Routine 09/11/2024 12:50 PM CDT XR FLUORO LESS THAN 1 HOUR Routine 09/11/2024 12:35 PM CDT POC GLUCOSE Routine 09/11/2024 7:48 AM CDT OSMOLALITY Routine 09/11/2024 3:48 AM CDT BASIC METABOLIC PANEL Routine 09/11/2024 3:48 AM CDT CBC WITH DIFFERENTIAL Routine 09/11/2024 3:48 AM CDT BLOOD CULTURE Stat 09/10/2024 10:30 PM CDT BLOOD CULTURE Stat 09/10/2024 10:30 PM CDT BASIC METABOLIC PANEL Stat 09/10/2024 10:20 PM CDT BLOOD CULTURE Stat 09/10/2024 10:20 PM CDT BLOOD CULTURE Stat 09/10/2024 10:20 PM CDT ELECTROLYTES, RANDOM URINE Stat 09/10/2024 9:20 PM CDT URINALYSIS MICROSCOPY ONLY Stat 09/10/2024 9:10 PM CDT URINALYSIS W/REFLEX MICROSCOPIC Stat 09/10/2024 9:10 PM CDT URINE CULTURE Stat 09/10/2024 9:[address] ABDOMEN PELVIS W CONTRAST Stat 09/10/2024 7:35 PM CDT TSH Stat 09/10/2024 6:30 PM CDT LIPASE Stat 09/10/2024 6:30 PM CDT COMPREHENSIVE METABOLIC PANEL Stat 09/10/2024 6:30 PM CDT CBC WITH DIFFERENTIAL Stat 09/10/2024 6:30 PM CDT TELEMETRY REPORT 08/31/2024 3:10 AM CDT POC GLUCOSE Routine 08/30/2024 4:29 PM CDT POC GLUCOSE Routine 08/30/2024 12:48 PM CDT POC GLUCOSE Routine 08/30/2024 7:20 AM CDT ALPHA-GAL PANEL Routine 08/30/2024 4:53 AM CDT BASIC METABOLIC PANEL Routine 08/30/2024 4:53 AM CDT CBC WITH DIFFERENTIAL Routine 08/30/2024 4:53 AM CDT POC GLUCOSE Routine 08/29/2024 9:13 PM CDT POC GLUCOSE Routine 08/29/2024 5:09 PM CDT POC GLUCOSE Routine 08/29/2024 11:28 AM CDT RT ASSESS AND TREAT Routine 08/29/2024 1 0:22 AM CDT POC GLUCOSE Routine 08/29/2024 7:16 AM CDT POC GLUCOSE Routine 08/29/2024 5:43 AM CDT BRAIN NATRIURETIC PEPTIDE, BNP OR PROBNP Routine 08/29/2024 5:05 AM CDT C-REACTIVE PROTEIN Routine 08/29/2024 5: 05 AM CDT BASIC METABOLIC PANEL Stat 08/29/2024 5:05 AM CDT CBC WITH DIFFERENTIAL Stat 08/29/2024 5:05 AM CDT BLOOD GAS ARTERIAL Stat 08/29/2024 1: [address] CHEST ABDOMEN PELVIS W CONT Stat 08/28/2024 7:[address] CERVICAL SPINE WO CONTRAST Stat 08/28/2024 7:[address] HEAD WO CONTRAST Stat 08/28/2024 7 :38 PM CDT EKG 12-LEAD Stat 08/28/2024 5:55 PM CDT CK Stat 08/28/2024 5:53 PM CDT ETHANOL LEVEL Stat 08/28/2024 5:53 PM CDT SALICYLATE LEVEL Stat 08/28/2024 5:53 PM CDT ACETAMINOPHEN LEVEL Stat 08/28/2024 5 :53 PM CDT AMMONIA LEVEL Stat 08/28/2024 5:53 PM CDT OSMOLALITY Stat 08/28/2024 5:53 PM CDT TSH REFLEXIVE Stat 08/28/2024 5:53 PM CDT MAGNESIUM LEVEL Stat 08/28/2024 5:53 PM CDT COMPREHENSIVE METABOLIC PANEL Stat 08/28/2024 5:53 PM CDT CBC WITH DIFFERENTIAL Stat 08/28/2024 5:53 PM CDT BLOOD CULTURE Stat 08/28/2024 5:53 PM CDT BLOOD CULTURE Stat 08/28/2024 5:53 PM CDT BLOOD CULTURE Stat 08/28/2024 5:53 PM CDT BLOOD CULTURE Stat 08/28/2024 5:53 PM CDT DRUG SCREEN, URINE Stat 08/28/2024 5: 33 PM CDT URINALYSIS W/REFLEX MICROSCOPIC Stat 08/28/2024 5:33 PM CDT URINE CULTURE Stat 08/28/2024 5:33 PM CDT POC LACTIC ACID Stat 08/28/2024 5:18 PM CDT BLOOD GAS ARTERIAL Stat 08/28/2024 5: 18 PM CDT XR TIBIA AND FIBULA 2 VW RIGHT Stat 08/28/2024 5:14 PM CDT XR FEMUR 2 VW RIGHT Stat 08/28/2024 5 :14 PM CDT XR CHEST PA OR AP 1 VW Stat 5:14 PM CDT RESPIRATORY PATHOGEN PCR PANEL Stat 08/28/2024 5:09 PM CDT CRITICAL CARE Routine 08/28/2024 3:20 PM CDT REDUCED POLYSOMNOGRAPHY 4 OR MORE PARAMETERS WITH CPAP Routine 08/20/2024 JOSE MARIA on CPAP Moderate COPD (chronic obstructive pulmonary disease) (CMS/HCC) LIPID PANEL Routine 04/21/2024 4:07 AM PIPING BLOCKER HEMOGLOBIN A1C Routine 04/20/2024 10:40 AM PIPING BLOCKER MICROALBUMIN/CREATININE RATIO, RANDOM UR Routine 01/11/2020 9:29 AM CDT MAMMO SCREEN BILAT W OR WO CAD Routine 12/17/2018 1:44 PM CDT Encounter for screening mammogram for malignant neoplasm of breast ENDOSCOPY, COLON, SCREENING 08/03/2014 12:00 AM CDT from Last 3 Months or Most Recently Relevant to Health Maintenance Results * XR TIBIA AND FIBULA 2 VW LEFT (10/02/2024 6:02 AM CDT) Anatomical Region Laterality Modality Lower Extremity Computed Radiogr aphy 10/02/2024 5:49 AM CDT Impressions 10/02/2024 8:00 AM CDT IMPRESSION: No acute osseous findings. Narrative 10/02/2024 8:00 AM CDT Exam: XR TIBIA AND FIBULA 2 VW LEFT Date/Time of Exam: 10/02/2024 6:02 AM Reason For Exam: Fall. Diagnosis: See Reason for Exam. Findings: The osseous structures are demineralized. Irregularity of the lateral tibial plateau likely related to a remote fracture. Mild to moderate secondary osteoarthritic changes noted in the knee. No acute fracture. The ankle mortise is congruent. Mild vascular calcifications are present. Procedure Note Matt Duque MD - 10/02/2024 Exam: XR TIBIA AND FIBULA 2 VW LEFT Date/Time of Exam: 10/02/2024 6:02 AM Reason For Exam: Fall. Diagnosis: See Reason for Exam. Findings: The osseous structures are demineralized. Irregularity of the lateral tibial plateau likely related to a remote fracture. Mild to moderate secondary osteoarthritic changes noted in the knee. No acute fracture. The ankle mortise is congruent. Mild vascular calcifications are present. IMPRESSION: No acute osseous findings. us Sher Olson MD DIAGNOSTIC IMAGING ORDER FRANCISCO Final Result * (ABNORMAL) CBC WITH DIFFERENTIAL (10/02/2024 5:38 AM CDT) Only the most recent of8 resultswithin the time period is included. WBC 7.7 4.0 - 10.0 K/uL 10/02/2024 5:48 AM [facility] RBC 4.50 3.93 - 5.22 M/uL 10/02/2024 5:48 AM [facility] HEMOGLOBIN 12.9 11.2 - 15.7 g/dL 10/02/2024 5:48 AM [facility] HEMATOCRIT 39.3 34.1 - 44.9 % 10/02/2024 5:48 AM [facility] MCV 87.3 79.4 - 94.8 fL 10/02/2024 5:48 AM [facility] MCH 28.7 25.6 - 32.2 pg 10/02/2024 5:48 AM [facility] MCHC 32.8 32.2 - 35.5 g/dL 10/02/2024 5:48 AM [facility] RDW 12.8 11.0 - 14.5 % 10/02/2024 5:48 AM [facility] RDW-STDEV 40.9 36.9 - 56.9 fL 10/02/2024 5:48 AM [facility] PLATELETS 227 163 - 337 K/uL 10/02/2024 5:48 AM [facility] MPV 9.4(L) 10.0 - 14.8 fL 10/02/2024 5:48 AM CDT [facility] NEUTROPHILS 71 34 - 71 % 10/02/2024 5:48 AM CDT [facility] LYMPHOCYTES 17(L) 19 - 52 % 10/02/2024 5:48 AM T [facility] MONOCYTES 9 5 - 13 % 10/02/2024 5:48 AM T [facility] EOSINOPHILS 2 1 - 6 % 10/02/2024 5:48 AM CDT [facility] BASOPHILS 0 0 - 1 % 10/02/2024 5:48 AM CDT [facility] IMMATURE GRANULOCYTES 1 % 10/02/2024 5:48 AM T [facility] NEUTROPHIL ABSOLUTE 5.46 1.56 - 6.13 K/uL 10/02/2024 5:48 AM T [facility] LYMPHOCYTE ABSOLUTE 1.35 1.20 - 3.40 K/uL 10/02/2024 5:48 AM T [facility] MONOCYTE ABSOLUTE 0.71(H) 0.24 - 0.36 K/uL 10/02/2024 5:48 AM T [facility] EOSINOPHIL ABSOLUTE 0.15 0.04 - 0.36 K/uL 10/02/2024 5:48 AM T [facility] BASOPHILS ABSOLUTE 0.02 0.01 - 0.08 K/uL 10/02/2024 5:48 AM T [facility] IMMATURE GRANULOCYTES ABSOLUTE 0.05 K/uL 10/02/2024 5:48 AM [facility] Blood BLOOD SPECIMEN / Unknown Venipuncture / Unknown 10/02/2024 5:38 AM CDT 10/02/2024 5:46 AM CDT us Sher Olson MD HEMATOLOGY ORDERABLES Fi nal Result [facility] CLIA # [id number] [address] [place] [address] * (ABNORMAL) D-DIMER (10/02/2024 5:38 AM CDT) [facility] D-DIMER QUANT 0.54(H) <0.50 ug/mL FEU 10/02/2024 6:27 AM T [facility] Blood BLOOD SPECIMEN / Unknown Venipuncture / Unknown 10/02/2024 5:38 AM CDT 10/02/2024 5:49 AM CDT [facility] - 10/02/2024 6:27 AM CDT D-Dimer assay cutoff value for exclusion of DVT and/or PE is <0.50 ug/mL FEU. As D-Dimer levels increase naturally with age, age stratification for patients over 50 is potentially more appropriate in determining whether a patient should undergo further evaluation for DVT and/or PE than a general cutoff of 0.50 ug/mL FEU. Clinical consideration is recommended. Age Stratified Cutoff Values: 50-60 years: 0.50-0.60 ug/mL FEU 61-70 years: 0.61-0.70 ug/mL FEU 71-80 years: 0.71-0.80 ug/mL FEU us Sher Olson MD HEMATOLOGY ORDERABLES Fi nal Result [facility] # [id number] [address] [place] [address] [id number] * (ABNORMAL) COMPREHENSIVE METABOLIC PANEL (10/02/2024 5:38 AM CDT) Only the most recent of3 resultswithin the time period is included. [facility] SODIUM 133(L) 136 - 145 mmol/L 10/02/2024 6:27 AM [facility] POTASSIUM 4.0 3.5 - 5.1 mmol/L 10/02/2024 6:27 AM [facility] CHLORIDE 96(L) 98 - 107 mmol/L 10/02/2024 6:27 AM [facility] CO2 26 22 - 29 mmol/L 10/02/2024 6:27 AM [facility] CALCIUM 9.4 8.8 - 10.2 mg/dL 10/02/2024 6:27 AM [facility] BUN 14 8 - 23 mg/dL 10/02/2024 6:27 AM [facility] CREATININE 1.08(H) 0.51 - 0.95 mg/dL 10/02/2024 6:27 AM [facility] GLUCOSE 284(H) 74 - 99 mg/dL 10/02/2024 6:27 AM [facility] TOTAL PROTEIN 6.7 6.6 - 8.7 g/dL 10/02/2024 6:27 AM [facility] ALBUMIN 4.1 3.5 - 5.2 g/dL 10/02/2024 6:27 AM [facility] BILIRUBIN TOTAL 0.2 0.0 - 1.2 mg/dL 10/02/2024 6:27 AM [facility] ALKALINE PHOSPHATASE 85 35 - 104 U/L 10/02/2024 6:27 AM [facility] AST 16 0 - 35 U/L 10/02/2024 6:27 AM [facility] ALT 14 0 - 35 U/L 10/02/2024 6:27 AM [facility] GFR 57(L) >=60 mL/min/1.7 3 sq meter 10/02/2024 6:27 AM [facility] Comment:eGFR calculated with 2020 CKD-EPI equation. Vegetarian diet, extremely high or low muscle mass, and may affect results. Cystatin C with Glomerular Filtration Rate is a suitable alternative for these patients. ANION GAP 11 5 - 20 mmol/L 10/02/2024 6:27 AM [facility] Blood BLOOD SPECIMEN / Unknown Venipuncture / Unknown 10/02/2024 5:38 AM CDT 10/02/2024 5:49 AM T us Sher Olson MD CHEMISTRY ORDERABLES Fin al Result [facility] CLIA # [id number] [address] [place] [address] * NM RENOGRAM W FLOW AND FUNCTION (09/29/2024 2:04 PM CDT) Anatomical Region Laterality Modality Abdomen Nuclear Medicine 09/29/2024 2:12 PM CDT Impressions 09/30/2024 7:16 AM CDT IMPRESSION: 1. Left kidney shows normal renal function. The right kidney shows evidence of decreased function with suggestion of moderate UPJ obstruction. Narrative 09/30/2024 7:16 AM CDT NUCLEAR MEDICINE KIDNEY IMAGING AND FUNCTION, WITHOUT AND WITH LASIX Reason For Exam: RIGHT RENAL ATROPHY. Diagnosis: Right renal atrophy. COMPARISONS: 09/10/2024 PROCEDURE: Following the intravenous administration of 9.7 mCi of Technetium-99m MAG-3, flow and delayed planar images of the abdomen were obtained in posterior projection. A oycwjd-pp-aqrnasjf analysis of the cortical regions of the kidneys was performed to determine the renal differential function. Subsequently, 64 mg of intravenous Lasix was administered and additional planar images of the abdomen were obtained in posterior projection. A fqguzi-mn-qscdynyt analysis of the kidneys was used to calculate the renal clearance curves. FINDINGS: The renal differential function is 22% on the right and 70% on the left. Left kidney shows normal flow, concentration, and excretion of tracer. Post Lasix images reveal prompt excretion of tracer as well. The right kidney shows normal flow and relatively slower uptake and the left kidney with evidence of minimal and delayed excretion. T1 half-time equals 15 minutes for the left kidney and 47 minutes for the right kidney.. Procedure Note Manolo Burr MD - 09/30/2024 NUCLEAR MEDICINE KIDNEY IMAGING AND FUNCTION, WITHOUT AND WITH LASIX Reason For Exam: RIGHT RENAL ATROPHY. Diagnosis: Right renal atrophy. COMPARISONS: 09/10/2024 PROCEDURE: Following the intravenous administration of 9.7 mCi of Technetium-99m MAG-3, flow and delayed planar images of the abdomen were obtained in posterior projection. A hsvtne-zh-mzqrhjgl analysis of the cortical regions of the kidneys was performed to determine the renal differential function. Subsequently, 64 mg of intravenous Lasix was administered and additional planar images of the abdomen were obtained in posterior projection. A ufwefg-wt-jhrerxbc analysis of the kidneys was used to calculate the renal clearance curves. FINDINGS: The renal differential function is 22% on the right and 70% on the left. Left kidney shows normal flow, concentration, and excretion of tracer. Post Lasix images reveal prompt excretion of tracer as well. The right kidney shows normal flow and relatively slower uptake and the left kidney with evidence of minimal and delayed excretion. T1 half-time equals 15 minutes for the left kidney and 47 minutes for the right kidney.. IMPRESSION: 1. Left kidney shows normal renal function. The right kidney shows evidence of decreased function with suggestion of moderate UPJ obstruction. Karly HOOK NM ORDERABLES Final Result * TELEMETRY REPORT (09/15/2024 3:02 AM CDT) Only the most recent of2 resultswithin the time period is included. Provider Scanning ECG ORDERABLES Final Result * (ABNORMAL) POC GLUCOSE (09/14/2024 12:09 PM CDT) Only the most recent of19 resultswithin the time period is included. Pathologist [facility] GLUCOSE POC 144(H) 74 - 99 mg/dL 09/14/2024 12:09 PM CDT [facility] SPECIMEN SOURCE, GLUCOSE POC Capillary 09/14/2024 12:09 PM CDT [facility] Blood, whole 09/14/2024 12:0 9 PM CDT 09/14/2024 12:27 PM CDT Luis Fernando Chino MD POINT OF CARE TESTING Final Resu lt [facility] CLIA # [id number] [address] [address] [place], [place] [id number] * (ABNORMAL) BASIC METABOLIC PANEL (09/14/2024 1:08 AM CDT) Only the most recent of6 resultswithin the time period is included. SODIUM 128(L) 136 - 145 mmol/L 09/14/2024 2:04 AM CDT [facility] [employer] [facility] POTASSIUM 4.1 3.5 - 5.1 mmol/L 09/14/2024 2:04 AM [facility] CHLORIDE 95(L) 98 - 107 mmol/L 09/14/2024 2:04 AM [facility] CO2 22 22 - 29 mmol/L 09/14/2024 2:04 AM [facility] CALCIUM 8.7(L) 8.8 - 10.2 mg/dL 09/14/2024 2:04 AM [facility] BUN 16 8 - 23 mg/dL 09/14/2024 2:04 AM [facility] CREATININE 0.77 0.51 - 0.95 mg/dL 09/14/2024 2:04 AM [facility] GLUCOSE 282(H) 74 - 99 mg/dL 09/14/2024 2:04 AM [facility] GFR >60 >=60 mL/min/1.7 3 sq meter 09/14/2024 2:04 AM [facility] Comment:eGFR calculated with 2020 CKD-EPI equation. Vegetarian diet, extremely high or low muscle mass, and may affect results. Cystatin C with Glomerular Filtration Rate is a suitable alternative for these patients. ANION GAP 11 9 - 20 mmol/L 09/14/2024 2:04 AM [facility] Blood Venipuncture / Unknown 09/14/2024 1:08 AM CDT 09/14/2024 1:30 AM CDT us Luis Fernando Chino MD CHEMISTRY ORDERABLES Final Resul t [facility] CLIA # [id number] [address] [place] [address] * (ABNORMAL) SODIUM LEVEL (09/13/2024 8:12 AM CDT) Only the most recent of8 resultswithin the time period is included. SODIUM 130(L) 136 - 145 mmol/L 09/13/2024 9:28 AM CDT [facility] Blood Venipuncture / Unknown 09/13/2024 8:12 AM CDT 09/13/2024 9:02 AM CDT us Ramirez Damian MD CHEMISTRY ORDERABLES Final Result Performing Organization Address [facility] Co de Phone Number [facility] CLIA # [id number] [address] [address] * URIC ACID (09/12/2024 7:29 AM CDT) URIC ACID 4.8 2.4 - 5.7 mg/dL 09/12/2024 11:05 AM CDT [facility] Blood Venipuncture / Unknown 09/12/2024 7:29 AM CDT 09/12/2024 8:25 AM CDT us Luis Fernando Chion MD CHEMISTRY ORDERABLES Final Resul t Performing Organization Address [facility] de Phone Number [facility] CLIA # [id number] [address] [address] * SODIUM, RANDOM URINE (09/11/2024 4:02 PM CDT) SODIUM, URINE 43 mmol/L 09/11/2024 4:50 PM CDT [facility] Urine URINE SPECIMEN OBTAINED BY CLEAN CATCH PROCEDURE / Unknown 09/11/2024 4:02 PM CDT 09/11/2024 4:02 PM CDT Ramirez Damian MD URINE ORDERABLES Final Res ult Performing Organization Address City/[facility]/ZIP Co de Phone Number [facility] CLIA # [id number] [id number] [place] [address] * OSMOLALITY, URINE (09/11/2024 4:02 PM CDT) [facility] OSMOLALITY, URINE 225 50 - 1,200 mOsm/kg 09/11/2024 4:57 PM CDT [facility] Urine URINE SPECIMEN OBTAINED BY CLEAN CATCH PROCEDURE / Unknown 09/11/2024 4:02 PM CDT 09/11/2024 4:02 PM CDT Narrative [facility] - 09/11/2024 4:57 PM CDT Reference range: 50-1200 mOsm/kg H2O, depending on fluid intake. Ramirez Damian MD URINE ORDERABLES Final Res ult Performing Organization Address [facility] de Phone Number [facility] CLIA # [id number] [id number] [place] [address] * (ABNORMAL) URINE CULTURE (09/11/2024 12:50 PM CDT) Only the most recent of3 resultswithin the time period is included. [facility] CULTURE ESCHERICHIA COLI(A) AQUILINO MCG/ML 09/14/2024 9:58 AM CDT [facility] Urine (Urine, straight in/out catheter) Collection / Unknown 09/11/2024 12:50 PM CDT 09/11/2024 12:58 PM CDT Narrative [facility] - 09/14/2024 9:58 AM CDT Refer to the Urine culture from 09/10/24 for susceptibility Ramirez Damian MD MICROBIOLOGY - GENERAL ORD ERABLES Final Result Performing Organization Address City/[facility]/ZIP Co de Phone Number [facility] CLIA # [id number] [address] [place] [address] * XR FLUORO LESS THAN 1 HOUR (09/11/2024 12:35 PM CDT) Narrative 09/11/2024 5:25 PM CDT Order information only. Exam was auto-finalized. Ramirez Damian MD DIAGNOSTIC IMAGING ORDERAB LES Final Result * (ABNORMAL) OSMOLALITY (09/11/2024 3:48 AM CDT) Only the most recent of2 resultswithin the time period is included. OSMOLALITY 271(L) 275 - 295 mOsm/kg 09/11/2024 4:58 AM CDT [facility] Blood Venipuncture / Unknown 09/11/2024 3:48 AM CDT 09/11/2024 4:17 AM CDT Sara Gandhi MD CHEMISTRY ORDERABLES Final Resul t Performing Organization Address City/[facility]/ZIP Co de Phone Number [facility] CLIA # [id number] [address] [address] [place] [address] * BLOOD CULTURE (09/10/2024 10:30 PM CDT) Only the most recent of4 resultswithin the time period is included. BLOOD CULTURE No growth 09/16/2024 6:29 PM CDT [facility] Blood (Peripheral) Venipuncture / Unknown 09/10/2024 10:30 PM CDT 09/10/2024 10:36 PM CDT Narrative [facility] - 09/16/2024 6:29 PM CDT Specimen processed with suboptimal blood volume collected. Doc Finnegan MD MICROBIOLOGY - GENERA L ORDERABLES Final Result Performing Organization Address City/[facility]/ZIP Co de Phone Number [facility] CLIA # [id number] [address] [place] [address] * ELECTROLYTES, RANDOM URINE (09/10/2024 9:20 PM CDT) Pathologist [facility] SODIUM, URINE 35 mmol/L 09/11/2024 6:14 PM CDT [facility] POTASSIUM, URINE 15.3 mmol/L 09/11/2024 6:14 PM CDT [facility] CHLORIDE, URINE 36 mmol/L 09/11/2024 6:14 PM CDT [facility] Urine URINE SPECIMEN OBTAINED BY CLEAN CATCH PROCEDURE / Unknown Collection / Unknown 09/10/2024 9:20 PM CDT 09/10/2024 9:59 PM CDT Narrative [facility] - 09/11/2024 6:14 PM CDT Reference Range Not Established Doc Finnegan MD URINE ORDERABLES Leticia l Result [facility] CLIA # [id number] [address] [place] [id number] * (ABNORMAL) URINALYSIS MICROSCOPY ONLY (09/10/2024 9:10 PM CDT) [facility] WBC UA 6-10(A) 0 - 2 /hpf 09/10/2024 9:26 PM CDT [facility] RBC UA 0-2 0 - 2 /hpf 09/10/2024 9:26 PM CDT [facility] BACTERIA UA 1+(A) Negative /hpf 09/10/2024 9:26 PM CDT [facility] EPITHELIAL CELLS, URINE 0-5 0 - 5 /hpf 09/10/2024 9:26 PM CDT [facility] Urine URINE SPECIMEN OBTAINED BY CLEAN CATCH PROCEDURE / Unknown Collection / Unknown 09/10/2024 9:10 PM CDT 09/10/2024 9:17 PM CDT Doc Finnegan MD URINE ORDERABLES Leticia l Result [facility] CLIA # [id number] [address] [place] [address] * (ABNORMAL) URINALYSIS WITH REFLEX MICROSCOPIC (09/10/2024 9:10 PM CDT) Only the most recent of2 resultswithin the time period is included. COLOR UA Yellow Pale to Dark Yellow 09/10/2024 9:26 PM CDT [facility] CLARITY UA Clear Clear 09/10/2024 9:26 PM T [facility] SPECIFIC GRAVITY UA 1.010 1.003 - 1.035 09/10/2024 9:26 PM [facility] PH UA 6.0 5.0 - 8.0 09/10/2024 9:26 PM [facility] LEUKOCYTE ESTERASE UA 2+(A) Negative 09/10/2024 9:26 PM [facility] NITRITE UA Positive(A) Negative 09/10/2024 9:26 PM T [facility] PROTEIN UA Negative Negative 09/10/2024 9:26 PM [facility] GLUCOSE UA Negative Negative 09/10/2024 9:26 PM [facility] KETONES UA Negative Negative 09/10/2024 9:26 PM [facility] UROBILINOGEN UA 0.2 <2.0 mg/dL 9:26 PM [facility] BILIRUBIN UA Negative Negative 09/10/2024 9:26 PM [facility] BLOOD UA Negative Negative 09/10/2024 9:26 PM [facility] Urine URINE SPECIMEN OBTAINED BY CLEAN CATCH PROCEDURE / Unknown Collection / Unknown 09/10/2024 9:10 PM CDT 09/10/2024 9:17 PM CDT us Doc Finnegan MD URINE ORDERABLES Leticia l Result [facility] CLIA # [id number] [address] [place] [address] * CT ABDOMEN PELVIS W CONTRAST (09/10/2024 7:35 PM CDT) Anatomical Region Laterality Modality Abdomen Computed Tomogra phy 09/10/2024 7:22 PM CDT Impressions 09/10/2024 8:09 PM CDT IMPRESSION: 1. Chronic changes of the right kidney including atrophy and dilatation of the collecting system are again noted. However, there is now gas in the right collecting system and gas in the urinary bladder. This could be secondary to a gas forming infection or recent instrumentation. 2. Other chronic changes as described. Narrative 09/10/2024 8:09 PM CDT Exam: CT ABDOMEN PELVIS W CONTRAST Date/Time of Exam: 09/10/2024 7:35 PM Reason For Exam: Bowel obstruction suspected. Diagnosis: See Reason for Exam. Technique: CT of the abdomen was performed following the administration of intravenous contrast. Contrast: 100 mL Isovue-300 Findings: Comparison 08/28/2024. The study is degraded by motion artifact. No concerning abnormality of either lung base is noted. Heart size is within normal limits. There are dense mitral annular calcifications. There is mild elevation of the right hemidiaphragm. No significant abnormality of the liver, spleen, pancreas or bile ducts is noted. The gallbladder is surgically absent. No abnormality of the right adrenal gland is noted. There is a stable 3.0 cm left adrenal nodule. Severe right renal atrophy is again noted. Chronic dilatation of the right collecting system is again noted. There is now gas in the right collecting system. There are multiple calcifications in the right kidney. There are multiple small nonobstructing left renal calculi and/or vascular calcifications. When allowing for motion artifact, no abnormality of the left renal parenchyma is appreciated. There are no abnormally dilated loops of bowel. There is no evidence for appendicitis. There is a density in the cecum which is presumably ingested contents. No pericolonic inflammatory change is noted. No free air or free fluid is noted. There is laxity of the lower abdominal wall without a definite actual hernia. There is an air-fluid level in the urinary bladder. No pathologic adenopathy is appreciated. There are multiple small mesenteric and retroperitoneal lymph nodes. The abdominal aorta is not aneurysmal. No acute bony abnormality is appreciated. There is multilevel degenerative change of the lumbar spine. Procedure Note Kassie Mann MD - 09/10/2024 Exam: CT ABDOMEN PELVIS W CONTRAST Date/Time of Exam: 09/10/2024 7:35 PM Reason For Exam: Bowel obstruction suspected. Diagnosis: See Reason for Exam. Technique: CT of the abdomen was performed following the administration of intravenous contrast. Contrast: 100 mL Isovue-300 Findings: Comparison 08/28/2024. The study is degraded by motion artifact. No concerning abnormality of either lung base is noted. Heart size is within normal limits. There are dense mitral annular calcifications. There is mild elevation of the right hemidiaphragm. No significant abnormality of the liver, spleen, pancreas or bile ducts is noted. The gallbladder is surgically absent. No abnormality of the right adrenal gland is noted. There is a stable 3.0 cm left adrenal nodule. Severe right renal atrophy is again noted. Chronic dilatation of the right collecting system is again noted. There is now gas in the right collecting system. There are multiple calcifications in the right kidney. There are multiple small nonobstructing left renal calculi and/or vascular calcifications. When allowing for motion artifact, no abnormality of the left renal parenchyma is appreciated. There are no abnormally dilated loops of bowel. There is no evidence for appendicitis. There is a density in the cecum which is presumably ingested contents. No pericolonic inflammatory change is noted. No free air or free fluid is noted. There is laxity of the lower abdominal wall without a definite actual hernia. There is an air-fluid level in the urinary bladder. No pathologic adenopathy is appreciated. There are multiple small mesenteric and retroperitoneal lymph nodes. The abdominal aorta is not aneurysmal. No acute bony abnormality is appreciated. There is multilevel degenerative change of the lumbar spine. IMPRESSION: 1. Chronic changes of the right kidney including atrophy and dilatation of the collecting system are again noted. However, there is now gas in the right collecting system and gas in the urinary bladder. This could be secondary to a gas forming infection or recent instrumentation. 2. Other chronic changes as described. us Rajiv Landeros DO CT ORDERABLES Final Res ult * TSH (09/10/2024 6:30 PM CDT) TSH 1.67 0.27 - 4.20 uIU/mL 09/10/2024 7:04 PM CDT [facility] Blood BLOOD SPECIMEN / Unknown Collection / Unknown 09/10/2024 6:30 PM CDT 09/10/2024 6:38 PM CDT [facility] CHEMISTRY ORDERABLES Leticia l Result [facility] CLIA # [id number] [address] [place] [address] * (ABNORMAL) LIPASE (09/10/2024 6:30 PM CDT) LIPASE 157(H) 13 - 60 U/L 09/10/2024 7:04 PM CDT [facility] Blood BLOOD SPECIMEN / Unknown Collection / Unknown 09/10/2024 6:30 PM CDT 09/10/2024 6:38 PM CDT [facility] CHEMISTRY ORDERABLES Leticia l Result Performing Organization Address City/[facility]/ZIP Co de Phone Number [facility] CLIA # [id number] [address] [place] [address] * (ABNORMAL) ALPHA-GAL PANEL (08/30/2024 4:53 AM CDT) ALLERGEN BEEF 0.41(H) kU/L 09/03/2024 5:16 AM CDT [facility] ALLERGEN BEEF ([id number]) CLASS 1 09/03/2024 5:16 AM CDT [facility] BRUNSON ([id number]) IGE 0.22(H) kU/L 09/03/2024 5:16 AM CDT [facility] ALLERGEN BRUNSON ([id number]) CLASS 0/1 09/03/2024 5:16 AM CDT [facility] ALLERGEN PORK 0.21(H) kU/L 09/03/2024 5:16 AM CDT [facility] ALLERGEN PORK ([id number]) CLASS 0/1 09/03/2024 5:16 AM CDT [facility] ALLERGY PANEL INTERP SEE COMMENT 09/03/2024 5:16 AM CDT [facility] Comment: Specific Level of Allergen IGE Class kU/L Specific IGE Antibody ----- --------- 0 <0.10 Absent/Undetectable 0/1 0.10-0.34 Very Low Level 1 0.35-0.69 Low Level 2 0.70-3.49 Moderate Level 3 3.50-17.4 High Level 4 17.5-49.9 Very High Level 5 50-100 Very High Level 6 >100 Very High Level The clinical relevance of allergen results of 0.10-0.34 kU/L are undetermined and intended for specialist use. Allergens denoted with a include results using one or more analyte specific reagents. In those cases, the test was developed and its analytical performance characteristics have been determined by [facility]. It has not been cleared or approved by the U.S. Food and Drug Administration. This assay has been validated pursuant to the CLIA regulations and is used for clinical purposes. GALACTOSE - ALPHA -1, 3 - GALACTOSE, IGE 0.49(H) <0.10 kU/L 09/03/2024 5:16 AM CDT [facility] Comment: Results above 0.1 kU/L indicate an allergen-specific IgE sensitization to pqjlynyll-b-6,3-galactose, and such patients are at risk for delayed allergic reactions following beef, pork, or brunson consumption. Circulating IgE antibodies may remain undetectable despite a convincing clinical history because these antibodies may be directed towards allergens revealed or altered during industrial processing, cooking, or digestion and therefore do not exist in the original food for which the patient is tested. Sometimes individuals diagnosed with chronic urticaria may develop IgE antibodies directed against human thyroglobulin. Such antibodies may cross-react with the bovine thyroglobulin used in ImmunoCAP(R) Allergen o215, alpha-Gal, leading to a false-positive test result. A definitive diagnosis should be based on the evaluation of both clinical and laboratory findings and not on any single diagnostic method. Additional information can be found at [email or web address] Venipuncture / Unknown 08/30/2024 4:53 AM CDT 08/30/2024 5:36 AM CDT Narrative [facility] - 09/03/2024 5:16 AM CDT Performing Organization Information: Site ID: ID Name: [facility] Address: [address] [place] [id number] Director: lElen Cobb MD Performing Organization Information: Site ID: [id number] Name: [facility], Address: [address] [place] [phone] Director: Kayli Trent MD,PhD,XIOMY Site ID: [id number] Name: [facility] Address: [address] [place] [phone] Director: Ellen Cobb MD us Luis Fernando Chino MD CHEMISTRY ORDERABLES [facility] Resul t Performing Organization Address City/[facility]/ZIP Co de Phone Number [facility] * (ABNORMAL) C-REACTIVE PROTEIN (08/29/2024 5:05 AM CDT) [facility] CRP 63.0(H) 0.0 - 5.0 mg/L 08/29/2024 9:25 AM CDT [facility] Blood Venipuncture / Unknown 08/29/2024 5:05 AM CDT 08/29/2024 5:38 AM CDT Ravin Diaz MD CHEMISTRY ORDERABLES Fi nal Result Performing Organization Address City/[facility]/ZIP Co de Phone Number [facility] CLIA # [id number] [address] [address] [place] [address] * (ABNORMAL) BRAIN NATRIURETIC PEPTIDE, BNP OR PROBNP (08/29/2024 5:05 AM CDT) [facility] PROBNP, N TERMINAL 161(H) 0 - 125 pg/mL 08/29/2024 9:38 AM CDT [facility] Comment: INTERPRETIVE COMMENT based on diagnosis: Diagnostic NT pro-BNP cutoffs for Heart Failure in the absence of renal failure is suggested for the following ranges <75 years: <125 pg/mL >=75 years: <450 pg/mL Exclusionary rule out cut-point for Acute Decompensated Heart Failure(ADHF) All ages: <300 pg/mL Diagnostic NT pro-BNP cutoffs for Acute Decompensated Heart Failure(ADHF) in the absence of renal failure is suggested for the following ages <50 years: > 450 pg/mL 50-75 years: > 900 pg/mL >75 years: >1800 pg/mL Blood Venipuncture / Unknown 08/29/2024 5:05 AM CDT 08/29/2024 5:38 AM CDT Ravin Diaz MD CHEMISTRY ORDERABLES Fi nal Result [id number] [address] [place] [address] * (ABNORMAL) BLOOD GAS ARTERIAL (08/29/2024 1:53 AM CDT) Only the most recent of2 resultswithin the time period is included. [facility] PH BLOOD POC 7.34(L) 7.35 - 7.45 08/29/2024 1:53 AM CDT [facility] PCO2 POC 47(H) 35 - 45 mm Hg 08/29/2024 1:53 AM T [facility] PO2 POC 81 80 - 105 mm Hg 08/29/2024 1:53 AM T [facility] HCO3 (CALC) POC 25 22 - 26 mmol/L 08/29/2024 1:53 AM T [facility] HEMOGLOBIN POC 14.2 12.0 - 18.0 g/dL 08/29/2024 1:53 [facility] 0 -2 - 3 mmol/L 08/29/2024 1:53 AM [facility] O2 SATURATION POC 97 95 - 98 % 08/29/2024 1:53 AM [facility] SODIUM POC 128(L) 138 - 146 mmol/L 08/29/2024 1:53 AM [facility] POTASSIUM POC 4.3 3.5 - 4.9 mmol/L 08/29/2024 1:53 AM [facility] HEMATOCRIT POC 43 38 - 51 % 08/29/2024 1:53 AM [facility] PH TEMP CORRECT 7.34(L) 7.35 - 7.45 08/29/2024 1:53 AM [facility] PCO2 TEMP CORRECT 47(H) 35 - 45 mm Hg 08/29/2024 1:53 AM [facility] PO2 TEMP CORRECT 81 80 - 105 mm Hg 08/29/2024 1:53 AM [facility] SPECIMEN SOURCE, GASES POC Arterial 08/29/2024 1:53 AM [facility] CALCIUM IONIZED POC 5.2 4.8 - 5.2 mg/dL 08/29/2024 1:53 AM [facility] TCO2 (CALC) POC 27 23 - 27 mmol/L 08/29/2024 1:53 AM [facility] EPAP POC 8 08/29/2024 1:53 AM [facility] FIO2 35.0 21.0 - 100.0 % 08/29/2024 1:53 AM [facility] Comment:FIO2 values reported <21.0 indicate O2 flow in Liters/minute. Values >/= 21.0 indicate percent O2. P/F RATIO POC 231 08/29/2024 1:53 AM [facility] IPAP POC 12 08/29/2024 1:53 AM [facility] PUNC SITE POC ART PUNCT 08/29/2024 1:53 AM [facility] VENT MODE POC BiPAP 08/29/2024 1:53 AM CDT [facility] Blood, arterial 08/29/2024 1 :53 AM CDT 08/29/2024 1:55 AM CDT Ravin Diaz MD ABG ORDERABLES Final R esult [facility] CLIA # [id number] [address] [facility] [place] [address] * CT CHEST ABDOMEN PELVIS W CONT (08/28/2024 7:39 PM CDT) Anatomical Region Laterality Modality Chest Computed Tomogra phy 08/28/2024 7:22 PM CDT Impressions 08/28/2024 8:08 PM CDT IMPRESSION: Please see below. Exam: CT CHEST ABDOMEN PELVIS W CONT Date/Time of Exam: 08/28/2024 7:39 PM Reason For Exam: Polytrauma, blunt. Diagnosis: See Reason for Exam. Technique: 5 mm volumetric acquisition with intravenous and oral contrast. Contrast: IOPAMIDOL 61 % INTRAVENOUS SOLUTION (MULTI-DOSE BULK PACK) Given:100 mL Comparison: None Findings: Technical limitations secondary to beam hardening artifact related to body habitus and nonelevation of the upper extremities. Images degraded by patient motion/respiration artifact.. Thoracic inlet: There are low-attenuation thyroid nodules which could be better assessed with ultrasound if clinically indicated. The thoracic inlet is otherwise within normal limits. Lymph Nodes: There are no pathologic axillary, mediastinal or hilar lymph nodes by size criteria. Thoracic aorta: The thoracic aorta is nonaneurysmal. Heart: The heart is normal in size. There are coronary artery and valvular calcifications. There is no pericardial effusion. Tracheobronchial tree: The tracheobronchial tree is within normal limits. Lungs: Atelectasis versus airspace disease of the anterior segment right upper lobe. There are no suspicious pulmonary lesions. Pleura: Trace right pleural effusion. Negative for left pleural effusion or pneumothorax. Liver: Normal. Gallbladder: Prior cholecystectomy. Pancreas: Normal. Spleen: Normal. Adrenal glands: Stable asymmetric left adrenal nodule measuring 3.1 x 2.0 cm. Kidneys and ureters: Asymmetric right moderate to severe pelvocaliectasis with dependent calcifications of the right renal bleb pelvis and asymmetric right renal cortical thinning/volume loss. Urinary bladder: Unremarkable. Reproductive organs: Status post hysterectomy. GI tract: Diverticular change of the unopacified, tortuous large bowel is present. The remaining unopacified bowel is unremarkable. Appendix: There is non visualization of a normal appearing appendix. No pericecal inflammatory change is present. Free fluid: No ascites. No pneumoperitoneum. Lymph nodes: No lymphadenopathy. Vasculature: Scattered aortic calcifications. Body wall: Diastases of the linea alba is present. Osseous structures: No acute osseous abnormality. No suspicious lesions. Diffuse osteopenia. Low-grade intramedullary cartilaginous lesions of the proximal femurs present. IMPRESSION: 1. Negative for definite CT evidence of acute traumatic process of the chest, abdomen, or pelvis with multiple incidental findings as above. Narrative Procedure Note Stef Martin MD - 08/28/2024 IMPRESSION: Please see below. Exam: CT CHEST ABDOMEN PELVIS W CONT Date/Time of Exam: 08/28/2024 7:39 PM Reason For Exam: Polytrauma, blunt. Diagnosis: See Reason for Exam. Technique: 5 mm volumetric acquisition with intravenous and oral contrast. Contrast: IOPAMIDOL 61 % INTRAVENOUS SOLUTION (MULTI-DOSE BULK PACK) Given:100 mL Comparison: None Findings: Technical limitations secondary to beam hardening artifact related to body habitus and nonelevation of the upper extremities. Images degraded by patient motion/respiration artifact.. Thoracic inlet: There are low-attenuation thyroid nodules which could be better assessed with ultrasound if clinically indicated. The thoracic inlet is otherwise within normal limits. Lymph Nodes: There are no pathologic axillary, mediastinal or hilar lymph nodes by size criteria. Thoracic aorta: The thoracic aorta is nonaneurysmal. Heart: The heart is normal in size. There are coronary artery and valvular calcifications. There is no pericardial effusion. Tracheobronchial tree: The tracheobronchial tree is within normal limits. Lungs: Atelectasis versus airspace disease of the anterior segment right upper lobe. There are no suspicious pulmonary lesions. Pleura: Trace right pleural effusion. Negative for left pleural effusion or pneumothorax. Liver: Normal. Gallbladder: Prior cholecystectomy. Pancreas: Normal. Spleen: Normal. Adrenal glands: Stable asymmetric left adrenal nodule measuring 3.1 x 2.0 cm. Kidneys and ureters: Asymmetric right moderate to severe pelvocaliectasis with dependent calcifications of the right renal bleb pelvis and asymmetric right renal cortical thinning/volume loss. Urinary bladder: Unremarkable. Reproductive organs: Status post hysterectomy. GI tract: Diverticular change of the unopacified, tortuous large bowel is present. The remaining unopacified bowel is unremarkable. Appendix: There is non visualization of a normal appearing appendix. No pericecal inflammatory change is present. Free fluid: No ascites. No pneumoperitoneum. Lymph nodes: No lymphadenopathy. Vasculature: Scattered aortic calcifications. Body wall: Diastases of the linea alba is present. Osseous structures: No acute osseous abnormality. No suspicious lesions. Diffuse osteopenia. Low-grade intramedullary cartilaginous lesions of the proximal femurs present. IMPRESSION: 1. Negative for definite CT evidence of acute traumatic process of the chest, abdomen, or pelvis with multiple incidental findings as above. Evan Kim DO CT ORDERABLES Final R esult * CT CERVICAL SPINE WO CONTRAST (08/28/2024 7:38 PM CDT) Anatomical Region Laterality Modality Spine Computed Tomogra phy 08/28/2024 7:19 PM CDT Impressions 08/28/2024 8:02 PM CDT IMPRESSION: Please see below. Exam: CT CERVICAL SPINE WO CONTRAST Date/Time of Exam: 08/28/2024 7:38 PM Reason For Exam: Polytrauma, blunt. Diagnosis: See Reason for Exam. Technique: 2.5-mm volumetric acquisition without intravenous contrast with sagittal, coronal, and axial reformatted images reviewed. Comparison: None Findings: Alignment: Normal. Vertebral body height: Preserved. Disc space height:Preserved. . Prevertebral soft tissues: Unremarkable. Posterior elements: Unremarkable. Atlanto-axial relationship: Normal. Lung apices:Unremarkable. IMPRESSION: 1. Negative for CT evidence of acute osseous abnormality of the cervical spine. Narrative Procedure Note Stef Martin MD - 08/28/2024 IMPRESSION: Please see below. Exam: CT CERVICAL SPINE WO CONTRAST Date/Time of Exam: 08/28/2024 7:38 PM Reason For Exam: Polytrauma, blunt. Diagnosis: See Reason for Exam. Technique: 2.5-mm volumetric acquisition without intravenous contrast with sagittal, coronal, and axial reformatted images reviewed. Comparison: None Findings: Alignment: Normal. Vertebral body height: Preserved. Disc space height:Preserved. . Prevertebral soft tissues: Unremarkable. Posterior elements: Unremarkable. Atlanto-axial relationship: Normal. Lung apices:Unremarkable. IMPRESSION: 1. Negative for CT evidence of acute osseous abnormality of the cervical spine. us Evan Manolo Julio DO CT ORDERABLES Final R esult * CT HEAD WO CONTRAST (08/28/2024 7:38 PM CDT) Anatomical Region Laterality Modality Head Computed Tomogra phy 08/28/2024 7:15 PM CDT Impressions 08/28/2024 7:59 PM CDT IMPRESSION: Please see below. Exam: CT HEAD WO CONTRAST Date/Time of Exam: 08/28/2024 7:38 PM Reason For Exam: Polytrauma, blunt. Diagnosis: See Reason for Exam. Technique: 2.5 and 5.0 mm axial. Comparison: CTA head and neck 04/20/2024. Findings: Quality: Tilt of the patients head within the CT gantry is noted. Ventricles/extra-axial spaces: The ventricles and subarachnoid spaces are symmetric and normal in size. Brain parenchyma: The brain parenchyma is normal in attenuation with preservation of the kraus white matter interface. Hemorrhage: No intracranial hemorrhage is identified. Extracranial structures:The visualized paranasal sinuses, mastoid air cells, and orbits are unremarkable. Impression: 1. Negative for acute intracranial process. Narrative Procedure Note Stef Martin MD - 08/28/2024 IMPRESSION: Please see below. Exam: CT HEAD WO CONTRAST Date/Time of Exam: 08/28/2024 7:38 PM Reason For Exam: Polytrauma, blunt. Diagnosis: See Reason for Exam. Technique: 2.5 and 5.0 mm axial. Comparison: CTA head and neck 04/20/2024. Findings: Quality: Tilt of the patients head within the CT gantry is noted. Ventricles/extra-axial spaces: The ventricles and subarachnoid spaces are symmetric and normal in size. Brain parenchyma: The brain parenchyma is normal in attenuation with preservation of the kraus white matter interface. Hemorrhage: No intracranial hemorrhage is identified. Extracranial structures:The visualized paranasal sinuses, mastoid air cells, and orbits are unremarkable. Impression: 1. Negative for acute intracranial process. 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: [id number] : 1960 Requested By: Order Number: [id number] Reading MD: Debo Tavera Measurements Intervals [place] Rate: 84 P: 86 MA: 170 QRS: 29 QRSD: 82 T: 78 QT: 374 QTc: 441 Interpretive Statements Sinus rhythm with marked sinus arrhythmia Otherwise normal ECG Electronically Signed On 08-29-2024 11:19:46 CDT by Debo Tavera Procedure Note Provider, Historical - 08/29/[address] [address] Test Date: 2024-08-28 Pat Name: ALISSA LUIS M Department: 11 Room: [address] [address] Gender: Female [employer] Sales Representative: [id number] : 1960 Requested By: Order Number: [id number] Reading : Debo Tavera Measurements Intervals [place] Rate: 84 P: 86 MA: 170 QRS: 29 QRSD: 82 T: 78 QT: 374 QTc: 441 Interpretive Statements Sinus rhythm with marked sinus arrhythmia Otherwise normal ECG Electronically Signed On 08-29-2024 11:19:46 CDT by Debo Tavera us Evan Kim DO ECG ORDERABLES Final R esult INTERFACE SYSTEM Refer to clinic/hospital department * TSH REFLEXIVE (08/28/2024 5:53 PM CDT) TSH 0.99 0.27 - 4.20 uIU/mL 08/28/2024 6:49 PM CDT [facility] Blood Venipuncture / Unknown 08/28/2024 5:53 PM CDT 08/28/2024 6:00 PM CDT Evan Kim DO CHEMISTRY ORDERABLES Fi nal Result Performing Organization Address [facility] Co de Phone Number [facility] CLIA # [id number] [address] [address] [place] [address] * MAGNESIUM LEVEL (08/28/2024 5:53 PM CDT) [facility] MAGNESIUM 1.9 1.6 - 2.4 mg/dL 08/28/2024 6:42 PM CDT [facility] Blood Venipuncture / Unknown 08/28/2024 5:53 PM CDT 08/28/2024 6:03 PM CDT Evan Kim DO CHEMISTRY ORDERABLES Fi nal Result Performing Organization Address City/[facility]/ZIP Co de Phone Number [facility] CLIA # [id number] [address] [facility] [place] [address] * (ABNORMAL) CK (08/28/2024 5:53 PM CDT) Pathologist [facility] CK 279(H) 26 - 192 U/L 08/28/2024 6:36 PM CDT [facility] Blood Venipuncture / Unknown 08/28/2024 5:53 PM CDT 08/28/2024 6:03 PM CDT Evan Kim DO CHEMISTRY ORDERABLES Fi nal Result Performing Organization Address [facility]/ZIP Co de Phone Number [facility] CLIA # [id number] [address] [place], [place] [id number] * AMMONIA LEVEL (08/28/2024 5:53 PM CDT) AMMONIA 17.9 11.0 - 51.0 umol/L 08/28/2024 6:30 PM CDT [facility] Blood, venous Venipuncture / Unknown 08/28/2024 5:53 PM CDT 08/28/2024 6:04 PM CDT Evan Kim DO CHEMISTRY ORDERABLES Fi nal Result Performing Organization Address [facility] Co de Phone Number [facility] CLIA # [id number] [address] [place], [place] [address] * ETHANOL LEVEL (08/28/2024 5:53 PM CDT) ETHANOL <10.10 <10.10 mg/dL 08/28/2024 6:42 PM CDT [facility] ETHANOL % <0.01 <=0.01 %w/v 08/28/2024 6:42 PM CDT [facility] Blood Venipuncture / Unknown 08/28/2024 5:53 PM CDT 08/28/2024 6:03 PM CDT Evan Kim DO CHEMISTRY ORDERABLES Fi nal Result Performing Organization Address City/[facility]/ZIP Co de Phone Number [facility] [employer] [facility] CLIA # [id number] [address] [place] [address] * (ABNORMAL) ACETAMINOPHEN LEVEL (08/28/2024 5:53 PM CDT) ACETAMINOPHEN LEVEL <5(L) 10 - 30 ug/mL 08/28/2024 7:03 PM CDT [facility] Blood Venipuncture / Unknown 08/28/2024 5:53 PM CDT 08/28/2024 6:03 PM CDT Evan Kim DO CHEMISTRY ORDERABLES Fi nal Result Performing Organization Address [facility] Co de Phone Number [facility] CLIA # [id number] [facility] [address] * (ABNORMAL) SALICYLATE LEVEL (08/28/2024 5:53 PM CDT) [facility] Signature SALICYLATE LEVEL <0.3(L) 3.0 - 10.0 mg/dL 08/28/2024 7:02 PM CDT [facility] Blood Venipuncture / Unknown 08/28/2024 5:53 PM CDT 08/28/2024 6:03 PM CDT Evan Kim DO CHEMISTRY ORDERABLES Fi nal Result Performing Organization Address [facility]/ZIP Co de Phone Number [facility] CLIA # [id number] [address] [address] * (ABNORMAL) DRUG SCREEN, URINE (08/28/2024 5:33 PM CDT) AMPHETAMINE QUAL, URINE Negative Negative 08/28/2024 6:11 PM CDT [facility] BARBITURATE QUAL, URINE Negative Negative 08/28/2024 6:11 PM CDT [facility] BENZODIAZEPINE QUAL, URINE Presumptive Positive(A) Negative 08/28/2024 6:11 PM CDT [facility] COCAINE QUAL URINE Negative Negative 08/28/2024 6:11 PM CDT [facility] OPIATE QUAL, URINE Negative Negative 08/28/2024 6:11 PM CDT [facility] CANNABINOIDS QUAL, URINE Negative Negative 08/28/2024 6:11 PM CDT [facility] OXYCODONE QUAL, URINE Negative Negative 08/28/2024 6:11 PM CDT [facility] METHADONE QUAL, URINE Negative Negative 08/28/2024 6:11 PM CDT [facility] FENTANYL QUAL, URINE Negative Negative 08/28/2024 6:11 PM CDT [facility] CREATININE, URINE 46.1 29.0 - 226.0 mg/dL 08/28/2024 6:11 PM CDT [facility] Comment:Reference Range vari es with fluid intake and diet. Urine URINE SPECIMEN OBTAINED BY CLEAN CATCH PROCEDURE / Unknown Collection / Unknown 08/28/2024 5:33 PM CDT 08/28/2024 5:37 PM CDT Narrative [facility] - 08/28/2024 6:11 PM CDT This test is a qualitative screen. The presumptive positive results should not be used for legal purposes. If confirmation of results is desired, the lab must be contacted without delay. Drug Ref. Range Screening Threshold Amphetamines Negative 500 ng/mL Barbiturates Negative 200 ng/mL Benzodiazepines Negative 100 ng/mL Cannabinoids Negative 50 ng/mL Cocaine Metabolite Negative 300 ng/mL Opiate Negative 300 ng/mL Oxycodone Negative 100 ng/mL Methadone Negative 300 ng/mL Fentanyl Negative 5 ng/mL us Evan Kim DO URINE ORDERABLES Final Result [facility] CLIA # [id number] [address] [address] * POC LACTIC ACID (08/28/2024 5:18 PM CDT) Pathologist [facility] LACTIC ACID POC 0.4 <=2.0 mmol/L 08/28/2024 5:18 PM CDT [facility] SPECIMEN SOURCE, GASES POC Arterial 08/28/2024 5:18 PM CDT [facility] PUNC SITE POC ART PUNCT 08/28/2024 5:18 PM CDT [facility] Blood 08/28/2024 5:18 PM CDT 08/28/2024 5:19 PM CDT Narrative [facility] - 08/28/2024 5:18 PM CDT References ranges displayed are for Arterial samples. Evan Kim DO POINT OF CARE TESTING F inal Result [facility] CLIA # [id number] [address] [place] [address] * XR TIBIA AND FIBULA 2 VW RIGHT (08/28/2024 5:14 PM CDT) Anatomical Region Laterality Modality Lower Extremity Computed Radiogr aphy 08/28/2024 5:14 PM CDT Impressions 08/28/2024 6:09 PM CDT IMPRESSION: Please see below. Exam: XR TIBIA AND FIBULA 2 VW RIGHT Date/Time of Exam: 08/28/2024 5:14 PM Reason For Exam: Trauma. Diagnosis: See Reason for Exam. Comparison: Right tibia and fibula 09/10/2022. Right femur 08/28/2024. Findings: Two views of the tibia/fibula on four films demonstrate no acute fracture or dislocation. No significant joint space loss or productive change is identified. Impression: 1. Negative for acute osseous abnormality. Narrative Procedure Note Stef Martin MD - 08/28/2024 IMPRESSION: Please see below. Exam: XR TIBIA AND FIBULA 2 VW RIGHT Date/Time of Exam: 08/28/2024 5:14 PM Reason For Exam: Trauma. Diagnosis: See Reason for Exam. Comparison: Right tibia and fibula 09/10/2022. Right femur 08/28/2024. Findings: Two views of the tibia/fibula on four films demonstrate no acute fracture or dislocation. No significant joint space loss or productive change is identified. Impression: 1. Negative for acute osseous abnormality. Evan Kim DO DIAGNOSTIC IMAGING ORDE RABLES Final Result * XR FEMUR 2 VW RIGHT (08/28/2024 5:14 PM CDT) Anatomical Region Laterality Modality Lower Extremity Computed Radiogr aphy 08/28/2024 5:14 PM CDT Impressions 08/28/2024 6:07 PM CDT IMPRESSION: Please see below. Exam: XR FEMUR 2 VW RIGHT Date/Time of Exam: 08/28/2024 5:14 PM Reason For Exam: Trauma. Diagnosis: See Reason for Exam. Comparison: Right tibia and fibula 08/28/2024. Findings: Two views of the femur on four films demonstrate technical limitations secondary to suboptimal penetration proximally. Probable bone islands of the right femoral neck and intertrochanteric femur. No significant joint space loss or productive change is identified. Impression: 1. Negative for acute osseous abnormality. Narrative Procedure Note Stef Martin MD - 08/28/2024 IMPRESSION: Please see below. Exam: XR FEMUR 2 VW RIGHT Date/Time of Exam: 08/28/2024 5:14 PM Reason For Exam: Trauma. Diagnosis: See Reason for Exam. Comparison: Right tibia and fibula 08/28/2024. Findings: Two views of the femur on four films demonstrate technical limitations secondary to suboptimal penetration proximally. Probable bone islands of the right femoral neck and intertrochanteric femur. No significant joint space loss or productive change is identified. Impression: 1. Negative for acute osseous abnormality. Evan Kim DO DIAGNOSTIC IMAGING ORDE RABGENEVIEVE Final Result * XR CHEST PA OR AP 1 VW (08/28/2024 5:14 PM CDT) Anatomical Region Laterality Modality Chest Computed Radiogr aphy 08/28/2024 5:14 PM CDT Impressions 08/28/2024 6:05 PM CDT IMPRESSION: Please see below. Exam: XR CHEST PA OR AP 1 VW Date/Time of Exam: 08/28/2024 5:14 PM Reason For Exam: Difficulty Breathing. Diagnosis: See Reason for Exam. Comparison: 05/19/2024. Findings: There is moderate rotation of the patient to the right. Enlargement of the cardiomediastinal silhouette with central pulmonary vascular congestion present. Mild atelectasis versus airspace disease the right midlung. No left consolidative airspace disease, significant pleural effusion, or pneumothorax identified. Diffuse osteopenia is present. Impression: 1. Technical limitations secondary to moderate rotation of the patient to the right with cardiomegaly with central pulmonary vascular congestion. 2. Mild atelectasis versus airspace disease the right midlung. Narrative Procedure Note Stef Martin MD - 08/28/2024 IMPRESSION: Please see below. Exam: XR CHEST PA OR AP 1 VW Date/Time of Exam: 08/28/2024 5:14 PM Reason For Exam: Difficulty Breathing. Diagnosis: See Reason for Exam. Comparison: 05/19/2024. Findings: There is moderate rotation of the patient to the right. Enlargement of the cardiomediastinal silhouette with central pulmonary vascular congestion present. Mild atelectasis versus airspace disease the right midlung. No left consolidative airspace disease, significant pleural effusion, or pneumothorax identified. Diffuse osteopenia is present. Impression: 1. Technical limitations secondary to moderate rotation of the patient to the right with cardiomegaly with central pulmonary vascular congestion. 2. Mild atelectasis versus airspace disease the right midlung. Evan Kim DO DIAGNOSTIC IMAGING ORDE CAS Final Result * RESPIRATORY PATHOGEN PCR PANEL (08/28/2024 5:09 PM CDT) Respiratory Pathogen PCR Panel NOT DETECTED No respiratory pathogen nucleic acids detected. 08/28/2024 6:20 PM CDT [facility] COVID-19 PCR NOT DETECTED Not Detected 08/28/2024 6:20 PM CDT [facility] Upper Respiratory ENTIRE NASOPHARYNX / Unknown Collection / Unknown 08/28/2024 5:09 PM CDT 08/28/2024 5:25 PM CDT Narrative [facility] - 08/28/2024 6:20 PM CDT The Film Array Respiratory Panel (RP2.1) is a multiplex nucleic acid detection test for 22 targets. Viruses: Adenovirus Coronavirus HKU1, NL63, 229E, and OC43 COVID-19/Severe Acute Respiratory Syndrome Coronavirus 2 Influenza A with the following subtypes: H1, H1-2009, and H3 Influenza B Human Metapneumovirus Parainfluenza virus 1, 2, 3, and 4 Respiratory Syncytial virus (RSV) Rhinovirus/Enterovirus (cannot differentiate due to genetic similarities) Bacteria: Bordetella pertussis Bordetella parapertussis Chlamydophila pneumoniae Mycoplasma pneumoniae Evan Kim DO MICROBIOLOGY - GENERAL ORDERABLES Final Result [facility] # [id number] [address] [place] [id number] * Critical Care (08/28/2024 3:20 PM CDT) Narrative Evan Kim DO - 08/28/2024 3:20 PM CDT Evan Kim DO 08/30/2024 2:28 AM Critical Care Performed by: Evan Kim DO Authorized by: Evan Kim DO Critical care provider statement: Critical care time (minutes): 35 Critical care time was exclusive of: Separately billable procedures and treating other patients and teaching time Critical care was necessary to treat or prevent imminent or life-threatening deterioration of the following conditions: Respiratory failure and IMPREGNATING HELPER failure or compromise Critical care was time spent personally by me on the following activities: Review of old charts, re-evaluation of patient's condition, pulse oximetry, examination of patient, discussions with consultants, evaluation of patient's response to treatment, obtaining history from patient or surrogate, ordering and performing treatments and interventions, ordering and review of laboratory studies and ordering and review of radiographic studies I assumed direction of critical care for this patient from another provider in my specialty: no Care discussed with: admitting provider us Evan Sentz DO PROCEDURE/MINOR SURGICA L ORDERABLES Final Result * REDUCED POLYSOMNOGRAPHY 4 OR MORE PARAMETERS WITH CPAP (08/20/2024) Cata Badillo, FEATHER WASHER - 08/20/2024 [place] Alissa Asencio [id number] PHYSICIAN: Elisha Stanford MD PhD ADMISSION DATE: 08/17/2024 SLEEP STUDY DATE OF SERVICE: 08/17/2024 PARAMETERS MONITORED: 16 channel: 2 EOG, 4 EEG, 3 EMG (submental, L+R Ant. Tib.), ECG, 2 respiratory excursion (thoracic & abdominal), 2 airflow (L+R nares & oral), snore sensor and O2 saturation. I have reviewed the entire raw data recording for this study. The quality of the recording and the scoring were sufficient to allow for interpretation. CLINICAL HISTORY: Alissa Asencio is a 64 y.o. female who presents with snoring, tosses and turns while sleeping, morning headaches, takes medicine to sleep, feels like she has to move her legs, grinds teeth while sleeping, enuresis, fatigue and excessive daytime sleepiness. Kremlin Sleepiness Score = 18 (this indicates excessive sleepiness). IMPRESSION: This attended polysomnography was performed as a diagnostic sleep study on room air. SLEEP ARCHITECTURE: Sleep efficiency was reduced to 81.2% due to frequent and prolonged awakenings after sleep onset. Total sleep time reduced to 306.1 minutes. sleep onset latency was normal. REM latency was normal. The amount of REM sleep was reduced for her age. RESPIRATORY: Respiratory monitoring showed overall apnea/hypopnea index (AHI) was 3.5 per hour of sleep (hypopnea was defined with 4% or more desaturation), which does not meet with the diagnostic criteria for obstructive sleep apnea. All sleep was recorded in the right lateral position. The sleep disordered breathing was NOT worse in the stage REM sleep (REM AHI=0 per hour of sleep). The lowest oxygen saturation was 82%. 292 minutes of sleep was spent with oxygen saturation less than or equal to 88%. LIMB MOVEMENTS: Periodic limb movements occurred with high frequency, some of them were associated with arousals. MOTOR ACTIVITY: No abnormal motor activity was noted. EKG: Single lead EKG demonstrated sinus rhythm with frequent PAC's. EEG: With the limited montage employed, no epileptiform discharge was observed. DIAGNOSIS: Chronic obstructive pulmonary disease Nocturnal hypoxemia Chronic Respiratory Failure MANAGEMENT OPTIONS/RECOMMENDATIONS: This study does not support the diagnosis of obstructive sleep apnea. Given the diagnosis of severe COPD, profound nocturnal hypoxemia during the sleep study, and her recent arterial blood gas result showing PaCO2 was 53 mmHg, Recommend Resmed VPAP-S IPAP=12cwp, EPAP=8cwp, Timin=0.4s, Timax=1.2s, trigger=low, cycle=high with 3L oxygen supplement, heated humidity, heated tubing, efficacy data download feature and mask fitting. Order was placed. Please fax the order to her preferred [employer] company. Evaluation and treatment of periodic limb movement disorder (PLMD) may be beneficial. PLMD may be associated with iron deficiency, peripheral neuropathy, peripheral vascular disease, chronic renal failure, SSRI medication, etc. Elisha Stanford MD PhD FAASM Diplomate, [place] [employer] Sleep Medicine [employer] insurance claims processor Lab at [facility] ([place], [place]) [employer] insurance claims processor Lab at [facility] us Elisha Stanford MD SLEEP CENTER ORDERABLES Final Re sult * (ABNORMAL) LIPID PANEL (04/21/2024 4:07 AM PIPING BLOCKER) CHOLESTEROL 122 <200 mg/dL 04/21/2024 6:52 AM [facility] TRIGLYCERIDE 127 <150 mg/dL 04/21/2024 6:52 AM [facility] HDL 35(L) 40 - 59 mg/dL 04/21/2024 6:52 AM [facility] LDL CALCULATED 62 <100 mg/dL 04/21/2024 6:52 AM [facility] NON-HDL CHOLESTEROL 87 <130 mg/dL 04/21/2024 6:52 AM [facility] Blood Venipuncture / Unknown 04/21/2024 4:07 AM PIPING BLOCKER 04/21/2024 4:26 AM [facility] - 04/21/2024 6:52 AM PIPING BLOCKER TOTAL CHOLESTEROL mg/dL Desirable <200 Borderline high 200-239 High >=240 TRIGLYCERIDES mg/dL Normal <150 Borderline high 150-199 High 200-499 Very high >=500 HDL CHOLESTEROL mg/dL Low <40 Normal 40-59 Desirable >=60 NON HDL CHOLESTEROL mg/dL Optimal <130 Near Optimal 130-159 Borderline High 160-189 Very High >=190 CALCULATED LDL mg/dL LDL <70, OPTIMAL if have Atherosclerotic cardiovascular disease (ASCVD) or intermediate or higher (>7.5%) 10 year risk of ASCVD including most adults with diabetes. LDL <100, Optimal in adult patients with low (<7.5%) 10 year ASCVD risk LDL 100-160, Suboptimal LDL >160, High LDL >190, Very high ATPIII Guidelines Reference Ranges for Lipid Panels (NCEP/AMA) . Ravin Diaz MD CHEMISTRY ORDERABLES Fi nal Result Performing Organization Address [facility] Co de Phone Number [facility] CLIA # [id number] [address] [place] [address] * (ABNORMAL) HEMOGLOBIN A1C (04/20/2024 10:40 AM PIPING BLOCKER) HEMOGLOBIN A1C 11.2(H) <=5.6 % 04/20/2024 7:02 PM [facility] EST. AVG GLUCOSE, A1C 275 mg/dL 04/20/2024 7:02 PM [facility] Blood BLOOD SPECIMEN / Unknown Collection / Unknown 04/20/2024 10:40 AM PIPING BLOCKER 04/20/2024 11:04 AM PIPING BLOCKER [facility] - 04/20/2024 7:02 PM PIPING BLOCKER HGB A1C INTERPRETATION NORMAL: <5.7% PRE-DIABETES: 5.7 - 6.4% DIABETES: 6.5% OR GREATER Ravin Diaz MD CHEMISTRY ORDERABLES Fi nal Result Performing Organization Address City/[facility]/ZIP Co de Phone Number [facility] CLIA # [id number] [address] [place] [address] * (ABNORMAL) MICROALBUMIN/CREATININE RATIO, RANDOM UR (01/11/2020 9:29 AM CDT) MICROALBUMIN, URINE 10.3 No Reference Range mg/dL 01/11/2020 10:30 AM CDT [facility] CREATININE, URINE 22.8(L) 29.0 - 226.0 mg/dL 01/11/2020 10:30 AM CDT [facility] Comment:Reference Range vari es with fluid intake and diet. MICROALBUMIN/ CREAT RATIO, UR 451.8(H) <25.0 mg/g 01/11/2020 10:30 AM CDT [facility] Urine URINE SPECIMEN OBTAINED BY CLEAN CATCH PROCEDURE / Unknown Collection / Unknown 01/11/2020 9:29 AM CDT 01/11/2020 9:29 AM CDT Narrative [facility] - 01/11/2020 10:30 AM CDT Condition Microalbumin/Creat ratio Normal Males <17 Normal Females <25 Microalbuminuria Males 17-299 Microalbuminuria Females 25-299 Overt proteinuria >=300 us Mendez Reyes MD URINE ORDERABLES Final Resul t [facility] CLIA # [id number] [address] [place] [address] [facility] CLIA # [id number] [address] [place] [address] * MAMMO SCREEN BILAT W OR WO CAD (12/17/2018 1:44 PM CDT) Anatomical Region Laterality Modality Breast Bilateral Other Impressions 12/18/2018 9:58 AM CDT : Superficial mass inferior medially, anteriorly, on the left, will require additional evaluation. Patient will be contacted by the Breast Center to schedule the recommended follow-up appointment. [id number] Narrative 12/18/2018 9:58 AM CDT Bilateral Digital [...] by the Computer Aided Detection System (CAD), R2 ImageChecker, Version 8.3. Procedure Note Shane Rodrigues MD - 10/01/2020 Bilateral Digital Screening Mammogram: Screening mammogram on [...] by the Computer Aided Detection System (CAD), R2 ImageChecker, Version 8.3. IMPRESSION : Superficial mass inferior medially, anteriorly, on the left, will require additional evaluation. Patient will be contacted by the Breast Center to schedule the recommended follow-up appointment. [id number] Shaun Briones MD MAMMO ORDERABLES Final Re sult * ENDOSCOPY, COLON, SCREENING (08/03/2014 12:00 AM CDT) Marguerite Wade SHAPER SET UP OPERATOR GI PROCEDURE ORDERABLES Fin al Result from Last 3 Months or Most Recently Relevant to Health Maintenance Insurance [place] [address] [place] [address] DUAL COMPLETE PPO DSNP [facility] [id number] RX [employer] RX Member Subscriber Plan / Payer (Ef fective 2024-Present) Name:Michelle Asencioquang Vanegas Relation to Subscriber:Self Name:Alissa Asencio Guilherme Subscriber ID:Not on file Payer ID:Not on file Group ID:[id number] Type:RX Medicare Part D Address: [address] Advance Directives For more information, please contact: [phone] Documents on File Type Date Recorded Patient Manager Landscape Expl anation Advance Directive POA 08/31/2024 8:59 AM A dvance Directive POA * Full Code (Latest Code Status on File) Date Activated Date Inactivated Comments 09/11/2024 11:28 AM 09/14/2024 6:31 PM * Full Code Date Activated Date Inactivated Comments 09/11/2024 2:46 AM 09/11/2024 11:28 AM * Default Full Code - Needs Discussion Date Activated Date Inactivated Comments 08/29/2024 7:20 AM 08/30/2024 8:24 PM * Full Code Date Activated Date Inactivated Comments 08/28/2024 9:04 PM 08/29/2024 7:20 AM * Full Code Date Activated Date Inactivated Comments 04/20/2024 6:31 PM 04/22/2024 6:35 PM
--- OUTSIDE RECORDS SUMMARY | 2024-11-06 13:14 | XMS_ITS | Encounter Summary ---
Author Organization [facility] Address [address] [place] [address] Care Team Providers Care Plug Stitcher Name Role Phone Non-Staff, Physician Primary Care Provider Unava ilable Encounter Details Date Type Department Care Team (Latest Contact Info) Description 12/19/2018 Ancillary Orders [facility] [address] [facility] [address] [place] [address] Shaun Briones MD [address] [place] [phone] Inconclusive mammogram Social History Tobacco Use Types Packs/Day Years Used Date Smoking Tobacco: Every Day Cigarettes 1.5 25 Smokeless Tobacco: Never Comments:1.5 packs Alcohol Use Standard Drinks/Week Comments No 0 (1 standard drink = 0.6 oz pur e alcohol) Comments No Sex and Gender Information Value Date Recorded Sex Assigned at Not on file Legal Sex Female 2:51 AM DONOR SPECIALIST Gender Identity Not on file Sexual Orientation Not on file Occupation Industry Job Start Date Job End Date Not on file Not on file Not on file Not on file documented as of this encounter Plan of Treatment Not on file documented as of this encounter Visit Diagnoses Diagnosis Inconclusive mammogram documented in this encounter Care Teams Plug Stitcher Relationship Specialty Start Date End Date Non-Staff, Physician NO ADDRESS ON FILE PCP - General 12/15/19 documented as of this encounter
--- OUTSIDE RECORDS SUMMARY | 2024-11-06 13:14 | XMS_ITS | Encounter Summary ---
Author Organization [facility] Address [address] [place] [address] Care Team Providers Care Civil Service Clerk Name Role Phone Non-Staff, Physician Primary Care Provider Unava ilable Encounter Details Date Type Department Care Team (Late st Contact Info) Description 07/07/2019 Ancillary Orders [facility] [address] [place] [address] Marguerite Wade, METAL TESTER [address] [place] [phone] Breath shortness Social History Tobacco Use Types Packs/Day Years Used Date Smoking Tobacco: Every Day Cigarettes 1.5 25 Smokeless Tobacco: Never Comments:1.5 packs Alcohol Use Standard Drinks/Week Comments No 0 (1 standard drink = 0.6 oz pur e alcohol) Comments No Sex and Gender Information Value Date Recorded Sex Assigned at Not on file Legal Sex Female 2:51 AM MANAGER STYLE Gender Identity Not on file Sexual Orientation Not on file Occupation Industry Job Start Date Job End Date Not on file Not on file Not on file Not on file documented as of this encounter Plan of Treatment Not on file documented as of this encounter Results * XR CHEST PA AND LATERAL 2 VW (07/07/2019 4:54 PM MANAGER STYLE) Anatomical Region Laterality Modality Chest Computed Radiogr aphy 07/07/2019 4:55 PM MANAGER STYLE Impressions 07/08/2019 11:32 PM MANAGER STYLE IMPRESSION: Please see below. Exam: XR CHEST PA AND LATERAL 2 VW Date/Time of Exam: 07/07/2019 4:54 PM Reason For Exam: See Diagnosis. Diagnosis: Breath shortness. Findings: Comparison dated 04/01/2019. There is mild diffuse prominence of the pulmonary interstitial markings similar to that seen on the previous examination. There is no acute consolidation. The cardiac silhouette and pulmonary vasculature are normal. IMPRESSION: Mild chronic pulmonary interstitial disease. No acute abnormality. Narrative Procedure Note Guilherme Quintero MD - 07/08/2019 IMPRESSION: Please see below. Exam: XR CHEST PA AND LATERAL 2 VW Date/Time of Exam: 07/07/2019 4:54 PM Reason For Exam: See Diagnosis. Diagnosis: Breath shortness. Findings: Comparison dated 04/01/2019. There is mild diffuse prominence of the pulmonary interstitial markings similar to that seen on the previous examination. There is no acute consolidation. The cardiac silhouette and pulmonary vasculature are normal. IMPRESSION: Mild chronic pulmonary interstitial disease. No acute abnormality. Marguerite Wade METAL TESTER DIAGNOSTIC IMAGING ORDERABL ES Final Result documented in this encounter Visit Diagnoses Diagnosis Breath shortness Shortness of breath Breath shortness Shortness of breath documented in this encounter Care Teams Civil Service Clerk Relationship Specialty Start Date End Date Non-Staff, Physician NO ADDRESS ON FILE PCP - General 12/15/19 documented as of this encounter
--- OUTSIDE RECORDS SUMMARY | 2024-11-06 13:14 | XMS_ITS | Encounter Summary ---
Author Organization [facility] Address [address] [place] [address] Care Team Providers Care Family And Consumer Science Professor Name Role Phone Non-Staff, Physician Primary Care Provider Unava ilable Encounter Details Date Type Department Care Team (Late st Contact Info) Description 08/08/2020 Ancillary Orders [facility] [address] [place] [address] Marguerite Wade, CIGARETTE AND FILTER CHIEF INSPECTOR [address] [place] [phone] Low back pain, unspecified back pain laterality, unspecified chronicity, unspecified whether sciatica present Social History Tobacco Use Types Packs/Day Years Used Date Smoking Tobacco: Every Day Cigarettes 1 25 Smokeless Tobacco: Never Comments:1.5 packs Alcohol Use Standard Drinks/Week Comments No 0 (1 standard drink = 0.6 oz pur e alcohol) Comments No Sex and Gender Information Value Date Recorded Sex Assigned at Not on file Legal Sex Female 2:51 AM YARN CONDITIONER Gender Identity Not on file Sexual Orientation Not on file Occupation Industry Job Start Date Job End Date Not on file Not on file Not on file Not on file COVID-19 Exposure Response Date Recorded In the last month, have you been in contact with someone who was confirmed or suspected to have Coronavirus / COVID-19? No / Unsure 08/08/2020 11:08 AM CDT documented as of this encounter Plan of Treatment Not on file documented as of this encounter Results * XR LUMBAR SPINE 2 OR 3 VW (08/08/2020 11:31 AM CDT) Anatomical Region Laterality Modality Spine Computed Radiogr aphy 08/08/2020 11:3 2 AM CDT Impressions 08/08/2020 7:01 PM CDT IMPRESSION: Please see below. Exam: XR LUMBAR SPINE 2 OR 3 VW Date/Time of Exam: 08/08/2020 11:31 AM Reason For Exam: See Diagnosis. Diagnosis: Low back pain, unspecified back pain laterality, unspecified chronicity, unspecified whether sciatica present. Findings: Comparison 09/29/2012. Alignment is within normal limits. There is marked L5-S1 degenerative disc disease. There is mild degenerative change at L4-5 and at L1-2. Mild loss of height of the L5 vertebral bodies unchanged compared to the prior exam. Degenerative changes of the facet joints at L4-5 and L5-S1 again noted. Abundant colonic stool. Right upper quadrant surgical clips. Vascular calcifications. IMPRESSION: Continued degenerative changes of the lower lumbar spine, greatest at L5-S1. No acute pathology. [id number] Narrative Procedure Note Hiro Jain MD - 08/08/2020 IMPRESSION: Please see below. Exam: XR LUMBAR SPINE 2 OR 3 VW Date/Time of Exam: 08/08/2020 11:31 AM Reason For Exam: See Diagnosis. Diagnosis: Low back pain, unspecified back pain laterality, unspecified chronicity, unspecified whether sciatica present. Findings: Comparison 09/29/2012. Alignment is within normal limits. There is marked L5-S1 degenerative disc disease. There is mild degenerative change at L4-5 and at L1-2. Mild loss of height of the L5 vertebral bodies unchanged compared to the prior exam. Degenerative changes of the facet joints at L4-5 and L5-S1 again noted. Abundant colonic stool. Right upper quadrant surgical clips. Vascular calcifications. IMPRESSION: Continued degenerative changes of the lower lumbar spine, greatest at L5-S1. No acute pathology. [id number] Marguerite Wade CIGARETTE AND FILTER CHIEF INSPECTOR DIAGNOSTIC IMAGING ORDERABL ES Final Result documented in this encounter Visit Diagnoses Diagnosis Low back pain, unspecified back pain laterality, unspecified chronicity, unspecified whether sciatica present Low back pain, unspecified back pain laterality, unspecified chronicity, unspecified whether sciatica present documented in this encounter Care Teams Family And Consumer Science Professor Relationship Specialty Start Date End Date Non-Staff, Physician NO ADDRESS ON FILE PCP - General 12/15/19 documented as of this encounter
--- NOTE | 2024-11-06 13:34 | XR_ITS ---
WS: [id number] Exam: XR chest 1V portable [id number] Date/Time of Exam: 11/06/2024 2:36 PM Reason For Exam: Shortness of breath Comparison 11/06/2024 at 12:40 p.m. Increasing pneumothorax of the RIGHT lung estimated at 30%. No tension or shift across midline. Atelectasis and patchy infiltrates in the RIGHT lung. The LEFT lung is clear and fully inflated. Heart size top limits normal. Small RIGHT basal pleural effusion and some atelectasis in the RIGHT base. Bony structures are intact. XR/XR chest 1V portable [id number] IMPRESSION: 1. Increasing pneumothorax of the RIGHT upper lobe estimated at 30%. No tension or midline shift. 2. Patchy infiltrates in the RIGHT lung with RIGHT basal atelectasis and small pleural effusion.
--- NOTE | 2024-11-06 13:47 | W.ED.SOB ---
HPI - SOB/Dyspnea General: Chief Complaint: Shortness of Breath/Dyspnea Stated Complaint: abn chest xray(sent by [place]) Time Seen by Provider: 11/06/24 13:28 History of Present Illness: HPI Narrative: 64-year-old woman with a history of tobacco dependence, COPD, chronic hypoxemic respiratory failure on nighttime and as needed oxygen, Sjogren syndrome, CHF, sleep apnea, type 2 diabetes, hypertension and Polyneuropathy who presents to the emergency room with worsening shortness of breath that started this morning. She has had a productive cough. Some inspiratory chest pain. No nausea or vomiting. No abdominal pain. No fevers. Related Data Home Medications ?Medication ?Instructions ?Recorded ?Confirmed oxygen-air delivery systems 01/17/22 11/06/24 acetaminophen 325 mg tablet 325 mg PO QID PRN Pain 11/19/22 11/06/24 diphenhydramine HCl 25 mg tablet 25 mg PO TID PRN Allergy Symptoms 11/19/22 11/06/24 (Benadryl Allergy) ibuprofen 200 mg tablet 200 mg PO Q6H PRN Pain 11/19/22 11/06/24 CPAP (Standard Cpap) 08/07/23 11/06/24 albuterol sulfate 2.5 mg/3 mL 2.5 mg inhalation Q6H PRN 12/04/23 11/06/24 (0.083 %) solution for nebulization Shortness Of Breath Or Wheezing albuterol sulfate 90 mcg/actuation 2 puff inhalation Q8H PRN 12/04/23 11/06/24 aerosol inhaler Shortness Of Breath Or Wheezing budesonide-formoterol HFA 160 2 puff inhalation BID 11/06/24 11/06/24 mcg-4.5 mcg/actuation aerosol inhaler cholecalciferol (vitamin D3) 1,250 50,000 unit PO Q7D 11/06/24 11/06/24 mcg (50,000 unit) capsule ensifentrine 3 mg/2.5 mL 2.5 ml inhalation BID 11/06/24 11/06/24 suspension for nebulization (Ohtuvayre) insulin glargine 100 unit/mL (3 65 unit SUBCUT QAM 11/06/24 11/06/24 mL) subcutaneous pen (Lantus Solostar U-100 Insulin) ipratropium 20 mcg-albuterol 100 1 puff inhalation Q6H PRN 11/06/24 11/06/24 mcg/actuation mist for inhalation Shortness Of Breath (Combivent Respimat) sertraline 100 mg tablet (Zoloft) 200 mg PO QAM 11/06/24 11/06/24 umeclidinium 62.5 mcg/actuation 1 inh inhalation DAILY 11/06/24 11/06/24 blister powder for inhalation (Incruse Ellipta) Previous Rx's ?Medication ?Instructions ?Recorded blood sugar diagnostic (Blood #100 ea 06/30/19 Glucose Test strips) blood-glucose meter (Blood Glucose #1 ea 01/22/20 Monitoring kit) flash glucose scanning reader #1 ea 08/01/20 (FreeStyle Jack 2 [place]) flash glucose sensor (FreeStyle #2 ea 08/01/20 Jack 2 Sensor kit) pen needle, diabetic 32 gauge x #100 ea 02/15/22 (BD Ultra-Fine Corine Pen Needle) nebulizer and supplies #1 ea 02/14/23 afflovest #1 ea 02/26/23 back brace #1 ea 04/15/23 [facility] [facility] #1 ea 06/18/23 pilocarpine HCl 5 mg tablet 5 mg PO TID #90 tabs 12/18/23 atorvastatin 20 mg tablet 20 mg PO BEDTIME #90 tabs 01/08/24 lisinopril 40 mg tablet 40 mg PO DAILY #90 tabs 01/09/24 potassium chloride 20 mEq 20 meq PO DAILY #90 tabs 01/09/24 tablet,extended release rivaroxaban 20 mg tablet (Xarelto) 20 mg PO DAILY #90 tabs 01/09/24 spironolactone 50 mg tablet 50 mg PO DAILY #90 tabs 01/09/24 hydroxychloroquine 200 mg tablet 200 mg PO BID #180 tabs 03/16/24 Held on 06/05/24. Instructions: Resume on 06/16/24. 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 manager,cont #1 ea 07/29/24 (FreeStyle Jack 3 [place]) metoprolol succinate 50 mg 50 mg PO DAILY #90 tabs 08/13/24 tablet,extended release 24 hr ondansetron HCl 4 mg tablet 4 mg PO DAILY PRN nausea and 08/24/24 vomiting 7 days #7 tabs blood-glucose sensor (FreeStyle #2 ea 08/26/24 Jack 3 Plus Sensor device) lactulose 10 gram/15 mL oral 30 g (45 mL) PO TID #4,050 mL 09/21/24 solution (Constulose) furosemide 40 mg tablet 40 mg PO BID #180 tabs 10/06/24 quetiapine 50 mg tablet (Seroquel) 50 mg PO .HS #30 tabs 10/12/24 fluticasone propionate 50 2 spray intranasal DAILY PRN 10/13/24 mcg/actuation nasal allergies #16 grams spray,suspension (Flonase Allergy Relief) modafinil 200 mg tablet 200 mg PO QAM #30 tabs 10/22/24 clonazepam 0.5 mg tablet 0.5 mg PO BID PRN anxiety #60 tabs 10/27/24 doxycycline hyclate 100 mg capsule 100 mg PO BID 7 days #14 caps 11/06/24 prednisone 20 mg tablet 60 mg (3 x 20 mg) PO DAILY #20 tabs 11/06/24 Allergies Allergy/AdvReac Type Severity Reaction Status Date / Time Sulfa (Sulfonamide Allergy Unknown Unknown Verified 11/06/24 11:14 Antibiotics) quinine (From Quine) Allergy unknown Verified 11/06/24 11:14 ropinirole (From Requip) Allergy Unknown Verified 11/06/24 11:14 Review of Systems Narrative: Constitutional symptoms: Negative except as documented in HPI. Skin symptoms: Negative except as documented in HPI. Eye symptoms: Negative except as documented in HPI. ENMT symptoms: Negative except as documented in HPI. Respiratory symptoms: Negative except as documented in HPI. Cardiovascular symptoms: Negative except as documented in HPI. Gastrointestinal symptoms: Negative except as documented in HPI. Genitourinary symptoms: Negative except as documented in HPI. Musculoskeletal symptoms: Negative except as documented in HPI. Neurologic symptoms: Negative except as documented in HPI. Psychiatric symptoms: Negative except as documented in HPI. Endocrine symptoms: Negative except as documented in HPI. PFSH ED PFSH: Medical History Sleep apnea Primary Sjogren's syndrome Lower extremity weakness Positive AMI (antinuclear antibody) Disorders of diaphragm Atelectasis of both lungs CHF (congestive heart failure), NYHA class III Drug-induced myopathy Recurrent pneumonia Emphysema lung Encephalopathy acute Acute and chronic respiratory failure with hypercapnia UTI (urinary tract infection) due to Enterococcus Excessive daytime sleepiness Diabetes type 2, controlled Insomnia Gross hematuria UTI (urinary tract infection) Psychiatric care Essential (primary) hypertension Chronic obstructive pulmonary disease with (acute) exacerbation Polyneuropathy, unspecified Callus Porokeratosis PVD (peripheral vascular disease) Shortness of Breath Bilateral leg edema Angina pectoris 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 with no history of malignant neoplasm AF (paroxysmal atrial fibrillation) Hypertension Tobacco abuse disorder Uncontrolled type 2 diabetes mellitus with polyneuropathy Acute DM type 2 causing complication Cannabis dependence, uncomplicated Nicotine dependence, cigarettes, with other nicotine-induced disorders Bipolar II disorder Post-traumatic stress disorder, chronic Surgical History H/O chest tube placement History of hysterectomy History of cholecystectomy History of appendectomy History of hernia repair Family History Father , AT AGE 21 Gunshot wound Mother , AT AGE 61 CAD (coronary artery disease) Other Cancer Diabetes Stroke Social History Smoking and tobacco/nicotine status: current every day tobacco/nicotine user cigarettes Packs smoked per day: 1.5 Years cigarettes smoked: 52 [ Other cigarette details: Started at age 10] Second hand smoke exposure: Yes Alcohol intake: current Alcohol intake frequency: holidays/special occasions only Alcohol type: other Substance/Drug Use: former Date of last use: 2020 Adopted: No Caregiver/support person: No Lives independently: Yes Household members: significant other Housing: Manufactured/Mobile home Marital status: Life Partner Number of children: 0 Number of grandchildren: 0 Highest education level completed: Some College, No Degree service: No Current occupational status: disabled 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 Skin: Warm, dry. Head: Normocephalic, atraumatic. Neck: Supple, trachea midline. Eye: Extraocular movements are intact. Ears, nose, mouth and throat: Oral mucosa moist. Cardiovascular: Regular rate and rhythm, Normal peripheral perfusion. Respiratory: coarse, scattered wheeze, mild increased wob. tachypnea, breath sounds are equal, Symmetrical chest wall expansion. Gastrointestinal: Soft, Nontender, Non distended Musculoskeletal: Normal ROM, no deformity. Neurological: Alert and oriented, No focal neurological deficit observed. Psychiatric: Cooperative, appropriate mood & affect. Course Vital Signs: Vital signs: Vital Signs Temperature 97.6 F 11/06/24 13:22 Pulse Rate 80 11/06/24 17:32 Respiratory Rate 16 11/06/24 17:32 Blood Pressure 168/96 11/06/24 17:32 Pulse Oximetry 91 11/06/24 17:32 Oxygen Delivery Me thod Nasal Cannula 11/06/24 14:49 Oxygen Flow Rate 2 11/06/24 14:49 MDM - SOB/Dyspnea Medical Decision Making Differential diagnosis for patient with shortness of breath includes but is not limited to and based on the above HPI, review of systems and physical exam: Pneumonia. Bronchitis. Asthma or COPD with acute exacerbation. Acute coronary syndrome / DC. Pulmonary embolism. Anxiety. Congestive heart failure. Viral infections including influenza and Covid-19. Atrial fibrillation. Anxiety. Pleural effusion. Pneumothorax. Orders placed to evaluate differential diagnosis based on the above differential, HPI and physical exam Chest x-ray: Large right pneumothorax. This is increased in size since earlier in the day today on x-ray done in clinic. This was reviewed and interpreted by myself the emergency room physician. I also reviewed the radiology report. CT of the chest without contrast: Large right pneumothorax. This was reviewed and interpreted by myself the emergency room physician. I also reviewed the radiology report. Lab Review: Laboratory results were reviewed and interpreted by myself the emergency room physician. No leukocytosis. No anemia. No renal failure. I reviewed the patient's medical record. THORACOSTOMY (CHEST TUBE) PLACEMENT Time: 1614 Indication: Pneumothorax/Hemothorax A time-out was completed verifying correct patient, procedure, site, positioning, and special equipment if applicable. The patient was positioned appropriately for chest tube placement. The patient?s right chest was prepped and draped in sterile fashion. 2% Lidocaine with epinephrine was used to anesthetize the surrounding skin area. 1% lidocaine with epi superficially A <0.5 cm> skin incision was made rather than inframammary line and the third intercostal space she has a port there so was placed around the fifth intercostal space more laterally. Thora vent was placed. Flutter valve was seen. A pleurevac was attached to the chest tube and a chest x-ray obtained. Estimated Blood Loss: <0.5cc> The patient tolerated the procedure well and there were no complications. Time of procedure: 10 minutes Repeat chest x-ray: Interval placement of a right pigtail pleural catheter with a small right superior pneumothorax remaining. This was reviewed and interpreted by myself the emergency room physician. I also reviewed the radiology report. Consultation: I spoke with both the consultant in ergonomics and safety and with the hospitalist REN at [facility] in [place]. They feel the transfer is appropriate and necessary. They have accepted the patient. They will call back when they have a bed. Assessment and plan: Recurrent pneumothorax COPD with acute exacerbation ?Chest tube placed. ? IV Solu-Medrol, multiple updrafts. ?Patient being transferred to tertiary care center with pulmonary. Will need management likely by pulmonology for recurrent pneumothorax. -I discussed the patient with the accepting physician on-call. - Discussed findings and plan with patient. Answered any questions. - All laboratory values were reviewed and interpreted personally by myself, the ER physician - All imaging was reviewed and interpreted personally by myself, the ER physician. - Evaluation and treatment of this problem were appropriate in the emergency setting Lab Data 11/06/24 13:24 11/06/24 13:24 Labs/Radiology: Radiology Impressions Chest CT 11/06/24 14:58 IMPRESSION: 1. Large right pneumothorax. 2. Subsegmental atelectasis/consolidation in the right lung. 3. Left adrenal adenoma without change. COMMENTS: 1. Consistent with the [place] [employer]'s Incidental Findings Committee white paper (J Am Ugo Radiol 2017): For any incidental adrenal lesion greater than or equal to 1 cm but less than or equal to 4 cm classified in this report as benign, likely benign, or containing fat (including classification as an adenoma or myelolipoma), no follow-up imaging is recommended per consensus recommendations based on imaging criteria. Further lab evaluation could be pursued if warranted based on clinical findings. 2. Consistent with the [place] [employer]'s Incidental Findings Committee white paper (J Am Ugo Radiol 2015): In patients aged 35 years and older with an incidental thyroid nodule equal to or greater than 1.[address], MRI or extrathyroidal US, further evaluation with dedicated thyroid US is recommended for patients with normal life expectancy and without comorbidities. For smaller nodules without suspicious features, no further evaluation or follow up is recommended. ADDENDUM: 11/06/24 1554 COMMENT: THIS REPORT CONTAINS FINDINGS THAT MAY BE CRITICAL TO PATIENT CARE. The exam findings were communicated by means of this report to Dr. Crews at 12:08 PM CDT on 09/21/2024. The findings were acknowledged and understood. (Direct telephone communication was declined by provider.) Chest X-Ray 11/06/24 16:11 IMPRESSION: Interval placement of a right pigtail pleural catheter with a small right superior pneumothorax remaining. Laboratory Results WBC 10.86 10^3/uL (3.29-11.43) 11/06/24 13:24 RBC 5.15 10^6/uL (3.85-5.65) 11/06/24 13:24 Hgb 14.70 g/dL (11.27-16.99) 11/06/24 13:24 Hct 44.7 % (36-47) 11/06/24 13:24 MCV 86.8 fl (85-98) 11/06/24 13:24 MCH 28.5 pg (27-33) 11/06/24 13:24 MCHC 32.9 g/dL (30-55) 11/06/24 13:24 RDW 12.8 % (12.1-15.1) 11/06/24 13:24 Plt Count 294 10^3/cmm (157-399) 11/06/24 13:24 MPV 9.2 fL (7.4-10.4) 11/06/24 13:24 Neut % (Auto) 80.9 % 11/06/24 13:24 Lymph % (Auto) 11.0 % 11/06/24 13:24 Weber % (Auto) 5.9 % 11/06/24 13:24 Eos % (Auto) 1.5 % 11/06/24 13:24 Baso % (Auto) 0.3 % 11/06/24 13:24 Neut # (Auto) 8.80 10^3/uL (1.8-7.7) H 11/06/24 13:24 Lymph # (Auto) 1.2 10^3/uL (0.8-4.8) 11/06/24 13:24 Weber # (Auto) 0.6 10^3/uL (0.2-0.9) 11/06/24 13:24 Eos # (Auto) 0.2 10^3/uL (0.0-0.8) 11/06/24 13:24 Baso # (Auto) 0.0 10^3/uL (0.0-0.1) 11/06/24 13:24 Nucleated RBC % (auto) 0 % 11/06/24 13:24 Nucleated RBCs # 0.0 /100WBC 11/06/24 13:24 Specimen Type Arterial 11/06/24 13:47 Sample Site Radial, right 11/06/24 13:47 ABG pH 7.42 (7.35-7.45) 11/06/24 13:47 ABG pCO2 38.5 mmHg (35-45) 11/06/24 13:47 ABG pO2 56.6 mmHg (80.0-100.0) L 11/06/24 13:47 ABG PO2/FiO2 Ratio 269 11/06/24 13:47 ABG HCO3 24.7 mmol/L (22-26) 11/06/24 13:47 ABG O2 Saturation 92.2 11/06/24 13:47 ABG Base Excess 0.3 mmol/L (-2.0-2.0) 11/06/24 13:47 Vish Test Pos 11/06/24 13:47 A-a O2 Gradient 5.9 mmHg (5-10) 11/06/24 13:47 Hematocrit 43.6 % (37-47) 11/06/24 13:47 Hgb O2 Saturation 81.6 % (95-100) L 11/06/24 13:47 Carboxyhemoglobin 10.6 %THgb (0.4-20.1) 11/06/24 13:47 Methemoglobin 1.0 % (0.4-1.5) 11/06/24 13:47 Total Hemoglobin 14.2 g/dL (12-16) 11/06/24 13:47 Sodium 133.0 mmol/L (131-143) 11/06/24 13:47 Potassium 3.9 mmol/L (3.5-5.0) 11/06/24 13:47 Glucose 185.0 mg/dL (70-115) H 11/06/24 13:47 Ionized Calcium 1.2 mmol/L (1.1-1.4) 11/06/24 13:47 O2 Delivery Device Room air 11/06/24 13:47 FiO2 21.0 % 11/06/24 13:47 Emergency Vehicle Dispatcher ID [place] 11/06/24 13:47 Sodium 132 mmol/L (136-145) L 11/06/24 13:24 Potassium 4.3 mmol/L (3.5-5.1) 11/06/24 13:24 Chloride 95 mmol/L (98-107) L 11/06/24 13:24 Carbon Dioxide 22 mmol/L (22-29) 11/06/24 13:24 Anion Gap 19.3 (5-19) H 11/06/24 13:24 BUN 12 mg/dL (8-23) 11/06/24 13:24 Creatinine 0.7 mg/dL (0.5-0.9) 11/06/24 13:24 GFR Calculation 84.2 mL/min (90-130) L 11/06/24 13:24 Glucose 186 mg/dL (65-115) H 11/06/24 13:24 Calculated Osmolality 279 mOsm/kg (285-295) L 11/06/24 13:24 Lactic Acid 1.4 mmol/L (0.5-2.2) 11/06/24 13:24 Calcium 9.8 mg/dL (8.5-10.5) 11/06/24 13:24 Total Bilirubin 0.4 mg/dL (0.15-1.2) 11/06/24 13:24 AST 13 U/L (0-32) 11/06/24 13:24 ALT 13 U/L (0-33) 11/06/24 13:24 Alkaline Phosphatase 87 U/L (35-105) 11/06/24 13:24 Troponin T Baseline 34 ng/L (0-10) H 11/06/24 13:24 Troponin T 120 Minute 30.87 ng/L (0-10) H 11/06/24 15:26 Delta Troponin T -3.13 ABS# (0-10) L 11/06/24 15:26 C-Reactive Protein 19.3 mg/L (0.0-4.9) H 11/06/24 13:24 NT-Pro-B Natriuret Pep 272 pg/mL (0-125) H 11/06/24 13:24 Total Protein 6.9 g/dL (6.6-8.7) 11/06/24 13:24 Albumin 4.3 g/dL (3.5-5.2) 11/06/24 13:24 Globulin 2.6 g/dL (1.3-4.6) 11/06/24 13:24 Influenza A (PCR) Negative (Negative) 11/06/24 13:54 Influenza Type B (PCR) Negative (Negative) 11/06/24 13:54 RSV (PCR) Negative (Negative) 11/06/24 13:54 SARS-CoV-2 (PCR) Negative (Negative) 11/06/24 13:54 All radiology interpretation(s) finalized by discharge Discharge Plan Discharge Patient Disposition: Xfer Short-Term Hosp Clinical Impression: Recurrent spontaneous pneumothorax, Acute exacerbation of chronic obstructive airways disease, Tobacco dependence Condition: Stable Referrals: Marguerite Wade FNP [Primary Care Provider, Family Practice] Discharge Diet: Usual diet Discharge Activity: Increase activity as tolerated Patient Instructions: COPD (Chronic Obstructive Pulmonary Disease) (ED), Pain Management, Patient Portal & Aida Instructions Print Language: Kyrgyz Coding Level of Care Code ED Pattern Shop Supervisor for Cordell Cortez
[2024-11-06 13:49] LABS: Basophils % 0.3 %; Eosinophils # 0.2 10^3/uL (0.0-0.8); Eosinophils % 1.5 %; Hematocrit 44.7 % (36-47); Lymphocytes # 1.2 10^3/uL (0.8-4.8); Mean Corpuscular HGB Conc 32.9 g/dL (30-55); Mean Corpuscular Hemoglobin 28.5 pg (27-33); Mean Corpuscular Volume 86.8 fl (85-98); Mean Platelet Volume 9.2 fL (7.4-10.4); Monocytes # 0.6 10^3/uL (0.2-0.9); Monocytes % 5.9 %; Neutrophils % 80.9 %; Nucleated Red Blood Cells % 0 %; Platelet Count 294 10^3/cmm (157-399); Red Blood Count 5.15 10^6/uL (3.85-5.65); Red Cell Distribution Width 12.8 % (12.1-15.1); White Blood Count 10.86 10^3/uL (3.29-11.43)
[2024-11-06] MEDS: ipratropium-albuterol 3 mL Neb INHALATION (13:50)
[2024-11-06] MEDS: albuterol 2.5 mg/3 mL Neb INHALATION (13:50)
--- NOTE | 2024-11-06 13:51 | ECG_ITS ---
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 Measurements Intervals [place] Rate: 78 P: 0 AL: 0 QRS: -28 QRSD: 114 T: 65 QT: 406 QTc: 465 Interpretive Statements SINUS RHYTHM WITH SINUS ARRHYTHMIA BORDERLINE LEFT AXIS DEVIATION [QRS AXIS < -20] MODERATE INTRAVENTRICULAR CONDUCTION DELAY [110+ ms QRS DURATION] Compared to ECG 12/04/2023 16:46:58 Intraventricular conduction delay now present Electronically Signed On 11-12-2024 09:21:59 CDT by Mo Adamson M.D. [email or web address]
[2024-11-06] MEDS: methylPREDNISolone sod succ 125 mg/2 mL INJ IVP (13:54)
[2024-11-06 13:58] LABS: Lactic Sepsis W/Reflex 1.4 mmol/L (0.5-2.2)
[2024-11-06 13:58] LABS: ABG PCO2 38.5 mmHg (35-45); ABG PH Result 7.42 (7.35-7.45); Alveolar-Arterial Oxygen Gradi 5.9 mmHg (5-10); Arterial Blood Gas Hematocrit 43.6 % (37-47); Base Excess ABG 0.3 mmol/L (-2.0-2.0); Blood Gas Allen Test Pos; Blood Gas Operator Identificat WALCI; Blood Gas Sample Site Radial, right; Blood Gas Sample Type Arterial; Carboxyhemoglobin 10.6 %THgb (0.4-20.1); HCO3 ABG 24.7 mmol/L (22-26); HGB O2 Sat 81.6 % (95-100); Ionized Calcium Level - ABG 1.2 mmol/L (1.1-1.4); Oxygen Device ROOM AIR; Oxygen Saturation ABG 92.2; PO2 ABG 56.6 mmHg (80.0-100.0); PO2 FiO2 Ratio Arterial Blood 269; Potassium Level - ABG 3.9 mmol/L (3.5-5.0); Total Hemoglobin 14.2 g/dL (12-16)
[2024-11-06 14:04] LABS: Troponin(5th) Baseline 34 ng/L (0-10)
[2024-11-06 14:11] LABS: Alanine Aminotransferase 13 U/L (0-33); Albumin Level 4.3 g/dL (3.5-5.2); Alkaline Phosphatase 87 U/L (35-105); Anion Gap 19.3 (5-19); Aspartate Amino Transferase 13 U/L (0-32); Blood Urea Nitrogen 12 mg/dL (8-23); C Reactive Protein 19.3 mg/L (0.0-4.9); Calcium 9.8 mg/dL (8.5-10.5); Carbon Dioxide 22 mmol/L (22-29); Chloride 95 mmol/L (98-107); Globulin 2.6 g/dL (1.3-4.6); Glomerular Filtration Rate 84.2 mL/min (90-130); Glucose 186 mg/dL (65-115); NT Pro B Type Natriuretic Pept 272 pg/mL (0-125); Osmolality Calculated 279 mOsm/kg (285-295); Potassium 4.3 mmol/L (3.5-5.1); Sodium 132 mmol/L (136-145); Total Bilirubin 0.4 mg/dL (0.15-1.2); Total Protein 6.9 g/dL (6.6-8.7)
[2024-11-06] MEDS: acetaminophen 1,000 MG/100 ML PIGGYBACK 400 MG IV (14:18)
--- NOTE | 2024-11-06 14:22 | PC.NURSE ---
Pt O2 sat 88-90 on room air, pt placed on 2L NC, pt reports she usually wears 3.5L NC when needed and at night
[2024-11-06 14:39] LABS: Influenza A NEGATIVE (Negative); Influenza B NEGATIVE (Negative); Respiratory Syncytial Virus Ce NEGATIVE (Negative); SARS-CoV-2 PCR NEGATIVE (Negative)
--- NOTE | 2024-11-06 14:58 | CTR_ITS ---
PROCEDURE INFORMATION: Exam: CT Chest Without Contrast; Diagnostic Exam date and time: 11/06/2024 3:13 PM Age: 64 years old Clinical indication: Abnormal findings; Abnormal radiologic exam of lung or chest; Additional info: Pneumothorax TECHNIQUE: Imaging protocol: Diagnostic computed tomography of the chest without contrast. Radiation optimization: All CT scans at this facility use at least one of these dose optimization techniques: automated exposure control; mA and/or kV adjustment per patient size (includes targeted exams where dose is matched to clinical indication); or iterative reconstruction. COMPARISON: CT chest wo con [id number] 06/03/2024 11:01 AM RADIATION DOSE METRICS: Total DLP (mGy-cm): 685.95 FINDINGS: Thyroid: Bilateral thyroid nodularity with right thyroid low-density nodule measuring 2 cm. Lungs: See Pleural spaces finding. Pleural spaces: There is a large right pneumothorax which is predominantly anterior. Previously there was a very small pneumothorax on the right. Multifocal subsegmental consolidation or atelectasis seen in the right lung including in the posterior right upper lobe, right middle lobe, and right lower lobe. Mild right upper and lower lobe ground-glass opacities/atelectasis. Heart: Unremarkable. No cardiomegaly. No pericardial effusion. Coronary arteries: Mild coronary calcifications. Lymph nodes: Unremarkable. No enlarged lymph nodes. Vasculature: Unremarkable. No aortic aneurysm. Adrenal glands: Left adrenal nodule measures 2 x 2.9 cm without change, with average attenuation of 10 Hounsfield units, compatible with adrenal adenoma. Cholecystectomy clips are seen. Bones/joints: Unremarkable. No acute fracture. Soft tissues: Unremarkable. CT/CT chest wo con [id number] IMPRESSION: 1. Large right pneumothorax. 2. Subsegmental atelectasis/consolidation in the right lung. 3. Left adrenal adenoma without change. COMMENTS: 1. Consistent with the [place] [employer]'s Incidental Findings Committee white paper (J Am Ugo Radiol 2017): For any incidental adrenal lesion greater than or equal to 1 cm but less than or equal to 4 cm classified in this report as benign, likely benign, or containing fat (including classification as an adenoma or myelolipoma), no follow-up imaging is recommended per consensus recommendations based on imaging criteria. Further lab evaluation could be pursued if warranted based on clinical findings. 2. Consistent with the [place] [employer]'s Incidental Findings Committee white paper (J Am Ugo Radiol 2015): In patients aged 35 years and older with an incidental thyroid nodule equal to or greater than 1.[address], MRI or extrathyroidal US, further evaluation with dedicated thyroid US is recommended for patients with normal life expectancy and without comorbidities. For smaller nodules without suspicious features, no further evaluation or follow up is recommended.
--- NOTE | 2024-11-06 15:07 | PC.PHAR ---
Pt uses [facility] [phone]
[2024-11-06 15:59] LABS: Troponin 5 2HR 30.87 ng/L (0-10)
[2024-11-06 16:00] LABS: Troponin 5 2HR Delta -3.13 ABS# (0-10)
--- NOTE | 2024-11-06 16:11 | XRR_ITS ---
PROCEDURE INFORMATION: Exam: XR Chest Exam date and time: 11/06/2024 4:16 PM Age: 64 years old Clinical indication: Device placement; Chest tube; Additional info: Chest tube placement TECHNIQUE: Imaging protocol: Radiologic exam of the chest. Views: 1 view. COMPARISON: CT chest wo con [id number] 11/06/2024 3:13 PM FINDINGS: Tubes, catheters and devices: Interval placement of a pigtail pleural catheter on the right over the lateral upper lung. There is a right apical pneumothorax measuring proximally 4.6 cm in length. Opacity or consolidation at the right lung base is seen. Lungs: See Tubes, catheters and devices finding. Pleural spaces: See Tubes, catheters and devices finding. Heart/Mediastinum: Unremarkable. No cardiomegaly. Bones/joints: Unremarkable. XR/XR chest 1V portable [id number] IMPRESSION: Interval placement of a right pigtail pleural catheter with a small right superior pneumothorax remaining.
[2024-11-06] MEDS: lidocaine-epi 1% 20 mL INJ INJECTION (16:12)
--- NOTE | 2024-11-06 16:43 | ECG_ITS ---
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 Measurements Intervals [place] Rate: 74 P: 85 MD: 185 QRS: -17 QRSD: 90 T: 72 QT: 416 QTc: 463 Interpretive Statements SINUS RHYTHM WITH MARKED SINUS ARRHYTHMIA Compared to ECG 11/06/2024 13:51:14 Atrial fibrillation no longer present Intraventricular conduction delay no longer present Electronically Signed On 11-12-2024 09:40:05 CDT by Mo Adamson M.D. [email or web address]
[2024-11-06] MEDS: HYDROcodone-acetaminophen 10-325 mg Tablet 1 TAB PO (17:04)
[2024-11-06] MEDS: morphine 4 mg/mL SDV 1 mL IVP ×2 (18:08→20:21)
--- NOTE | 2024-11-06 19:35 | ECG_ITS ---
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 Measurements Intervals Leonard Rate: 71 P: 149 TX: 187 QRS: 213 QRSD: 94 T: 118 QT: 415 QTc: 451 Interpretive Statements ECTOPIC ATRIAL RHYTHM POSSIBLE RIGHT VENTRICULAR HYPERTROPHY [SOME/ALL OF: PROMINENT R IN V1, LATE TRANSITION, RAD, JASKARAN, SSS] MINIMAL ST DEPRESSION [0.025+ mV ST DEPRESSION] Compared to ECG 11/06/2024 16:43:30 Ectopic atrial rhythm now present ST (T wave) deviation now present Sinus rhythm no longer present Sinus arrhythmia no longer present Electronically Signed On 11-12-2024 09:39:24 CDT by Mo Adamson M.D. [email or web address]
[2024-11-06 20:10] LABS: Troponin 5 6HR 21.09 ng/L (0-10)
[2024-11-06 20:12] LABS: Troponin 5 6HR Delta -12.91 ng/L (0-12)
== END 2024-11-06 20:45 | disposition short-term general hospital (02) ==
PROVIDERS: Emergency Provider Emergency Medicine; PCP Nurse Practitioner Family
DX: J93.83 Other pneumothorax (principal); J44.1 Chronic obstructive pulmonary disease with (acute) exacerbation; F17.210 Nicotine dependence, cigarettes, uncomplicated; Z11.52 Encounter for screening for COVID-19; E11.42 Type 2 diabetes mellitus with diabetic polyneuropathy; I11.0 Hypertensive heart disease with heart failure; I50.9 Heart failure, unspecified
CPT/HCPCS: 32551; 36415; 36600; 71045; 71250; 80051; 80053; 82330; 82805; 83605; 83880; 84484; 85025; 86140; 87040; 87637; 93005; 94640; 96365; 96366; 96375; 96376; 99285; J0131; J2270; J2919; J7613; J9999

== ENCOUNTER → 2024-12-03 10:33 | Outpatient (BNVA) | payer OTHER, MEDICAID, SELFPAY ==
[2024-08-25 11:02] VITALS: BP 120/78; BMI 41.2
== END ==
PROVIDERS: PCP Nurse Practitioner Family; Visit Provider Nurse Practitioner Family
DX: I11.0 Hypertensive heart disease with heart failure (principal); I50.32 Chronic diastolic (congestive) heart failure; I48.0 Paroxysmal atrial fibrillation; Z79.01 Long term (current) use of anticoagulants; G47.33 Obstructive sleep apnea (adult) (pediatric); E11.42 Type 2 diabetes mellitus with diabetic polyneuropathy; Z79.4 Long term (current) use of insulin; F17.218 Nicotine dependence, cigarettes, with other nicotine-induced disorders
CPT/HCPCS: 99214

== ENCOUNTER → 2024-12-04 13:46 | Outpatient (BNVA) | payer OTHER, MEDICAID, SELFPAY ==
[2024-08-25 11:02] VITALS: BP 120/78; BMI 41.2
== END ==
PROVIDERS: PCP Nurse Practitioner Family; Visit Provider Nurse Practitioner Family
DX: N30.00 Acute cystitis without hematuria (principal)
CPT/HCPCS: 81000

== ENCOUNTER 2024-12-28 12:00 | Outpatient (CLI) | payer OTHER, MEDICAID, SELFPAY ==
[2024-08-25 11:02] VITALS: BP 120/78; BMI 41.2
--- NOTE | 2024-12-28 12:39 | XRR_ITS ---
PROCEDURE INFORMATION: Exam: XR Chest Exam date and time: 12/28/2024 12:44 PM Age: 64 years old Clinical indication: Shortness of breath; Prior surgery; Surgery date: 6+ months; Surgery type: Previous chest tube; HX of lung collapses, x1 week SOB and cough; Additional info: J06.9 - acute upper respiratory infection, unspecified TECHNIQUE: Imaging protocol: Radiologic exam of the chest. Views: 2 views. COMPARISON: CR XR chest 1V portable [id number] 11/06/2024 4:16 PM FINDINGS: Lungs: The lungs are hyperinflated. No focal consolidation is appreciated. Pleural spaces: Unremarkable. No pleural effusion. No pneumothorax. Heart/Mediastinum: Heart size is normal. There is calcified plaque involving the aorta. Bones/joints: Unremarkable. XR/XR chest 2V* [id number] IMPRESSION: 1. Lung hyperinflation.
[2024-12-28 12:41] LABS: Estmated Average Glucose 209; Hemoglobin A1C 8.9 % (4.0-6.0)
[2024-12-28 12:46] LABS: Alanine Aminotransferase 12 U/L (0-33); Albumin Level 3.9 g/dL (3.5-5.2); Alkaline Phosphatase 91 U/L (35-105); Anion Gap 15.5 (5-19); Aspartate Amino Transferase 12 U/L (0-32); Blood Urea Nitrogen 25 mg/dL (8-23); Calcium 8.9 mg/dL (8.5-10.5); Carbon Dioxide 25 mmol/L (22-29); Chloride 97 mmol/L (98-107); Cholesterol 127 mg/dL (0-200); Globulin 2.6 g/dL (1.3-4.6); Glucose 138 mg/dL (65-115); HDL Cholesterol 47 mg/dL (60-100); Osmolality Calculated 283 mOsm/kg (285-295); Potassium 4.5 mmol/L (3.5-5.1); Sodium 133 mmol/L (136-145); Total Protein 6.5 g/dL (6.6-8.7); Triglycerides 90 mg/dL (0-150)
[2024-12-28 12:53] LABS: Creatinine Urine, Random 73 mg/dL (28-217)
[2024-12-28 12:58] LABS: Microalbum Creatinine Ratio Ur 68 mg/dL (0-20)
== END 2024-12-28 12:01 | disposition home or self-care (01) ==
LOC: LAB 12:04
PROVIDERS: Internal Medicine; PCP Nurse Practitioner Family; Visit Provider Nurse Practitioner Family
DX: R00.1 Bradycardia, unspecified (principal); I11.0 Hypertensive heart disease with heart failure; I50.30 Unspecified diastolic (congestive) heart failure; I48.91 Unspecified atrial fibrillation; Z79.01 Long term (current) use of anticoagulants; G47.30 Sleep apnea, unspecified; E11.65 Type 2 diabetes mellitus with hyperglycemia; E11.42 Type 2 diabetes mellitus with diabetic polyneuropathy; Z79.4 Long term (current) use of insulin; F17.218 Nicotine dependence, cigarettes, with other nicotine-induced disorders; I48.0 Paroxysmal atrial fibrillation
CPT/HCPCS: 36415; 71046; 80053; 80061; 82044; 83036; 93005; 99213

== ENCOUNTER 2025-01-25 15:16 | Inpatient (IN) | payer OTHER, MEDICAID, SELFPAY ==
--- OUTSIDE RECORDS SUMMARY | 2024-11-19 23:59 | XMS_ITS | Continuity of Care Document ---
Author Name [facility] Address [address] [place] [address] Organization [facility] Care Team Providers Care Glue Machine Operator Name Role Phone [facility] Unavailable Unavailable Allergies, Adverse Reactions, Alerts Substance Category Reaction Severity Reaction type Status Date Reported Comments Source QuiNINE Sulfate Assertion Drug allergy Active [facility] Consultation Notes Results Value Date Source Urology Clinic Note Consent: verbal cons ent for this telehealth visit was obtained from patient or guardian prior to beginning this encounter. Risks (tech failure, privacy and security, incomplete examination), and benefits (reduced exposure to infectious disease, convenience) of using a virtual platform were reviewed and addressed prior to beginning this encounter. The patient is at Home I am at [facility] Audio visit only UROLOGY PHONE/TELEHEALTH NOTE Chief Concern: Right UPJ obstruction History of Present Illness: JOSE ASENCIO is a 64 Years old Female who I had a phone/telehealth visit with today for right UPJ obstruction. She reports a long history of UTIs - mostly E. Coli infections and they happen about every 3 months or so. She has a history of irritable bowel syndrome and has dealt with alternating constipation and diarrhea so that she takes lactulose to stay more regular. Sometimes she may take too much and it causes severe diarrhea that gets up on her vagina. She also has diverticulosis and while she hasn't had a surgery for diverticulitis, she does get occasional bouts that increase her diarrhea. She does not have any history of right flank pain and has not been told in the past that she has a right UPJ obstruction. Does not have a history of kidney stones or any stents until recently. 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 A right ureteral stent was placed along with a mosley. She now does NOT have the mosley but does still have the right stent in place. She stayed in the hospital for a week or so with antibiotics. This was her first bout of pyelonephritis. She does also have a history of 5 total pneumothoraces and says she recently got out of the hospital where they had to glue her lungs to my rib cage to help with a pneumothorax. She was in the hospital for 8 days. Sounds like she also had a chest tube at one time and also had her A. fib flare up. Says her heart was wanting to start and stop now and then and she started a new medication - doesn't know what it is. PMH: 5 pneumothorax, A. 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 Mo Adamson) PSH: Hysterectomy for a tumor (benign), also put in mesh for a hernia (this was 20 years ago), laparoscopic cholecystectomy, laparoscopic appendectomy SH: lives in [place], [place], smoked since she was 9 years old, FH: no family problems Assessment and Plan: 1. Right UPJ obstruction - Discussed right robotic pyeloplasty vs right nephrectomy vs stent changes vs stent removal and observation - I will get outside imaging and records (including her recent hospital stay) for review - She is not a good surgical candidate - Due to her repeated pneumothoraces, if we did a pyeloplasty or nephrectomy, would consider open flank to try and avoid compression of the lungs and her midline hernia mesh. - If we did a big surgery, I would lean nephrectomy based on 22% renal function - May be safest to do stent changes - I will call her once I get outside records Time: Time spent on the day of this encounter including reviewing history and images was 24 minutes. Shane Fields MD Reconstructive Urology [facility] I reviewed the outside records: Admitted 11/06/24 to 11/13/24 Went to PCP for cough and shortness of breath, found right pneumothorax Right chest tube placed 11/09/24: right VATS/apical lung resection for recurrent R spontaneous ptx &ndash; fibrinous adhesions, no blebs seen Also treated for COPD exacerbation with steroids, inhalers, antibiotics Difficulty getting blood sugars under control &ndash; was 400s-500s, improved with high dose sliding scale Echo: EF 60-65%, indeterminate diastolic function Pneumonia panel negative Was trending towards discharge and then went into A. fib with RVR requiring diltiazem drip Cardiology started flecainide Xarelto resumed Creatinine 0.69 PMH: HTN, COPD, CHF, paroxysmal A. fib, recurrent spontaneous pneumothorax, DM2, JOSE MARIA on CPAP 09/29/24: renal Lasix scan shows normal left kidney, right side 22% function, 47 minutes right side drainage 09/10/24: CT abdomen - right kidney atrophic (I don't think it has 22% function), very large ventral hernia repair Plan: potentially a right open (flank) nephrectomy - I will contact her toggle press operator Shannon Anglin NP and get records - this will determine whether we order any additional testing Shane Fields MD Reconstructive Urology [facility] 11/19/2024 Encounters Location Location Details Encounter Type Encounter Number Reason For Visit Attending Provider ADM Date DC Date Status Source Surg Urology Between Visit [id number] 10/12 14:09 :32 10/13 04:59 :59 [facility] Surg Urology Between Visit [id number] 10/14 21:04 :04 10/15 04:59 :59 [facility] Surg Urology Between Visit [id number] 11/18 15:30 :31 11/19 04:59 :59 [facility] Surg Urology [facility] [id number] Shane Fields 11/19 17:35 :18 11/20 04:59 :59 [facility] [id number] [facility] Social History Social History Date Source Social History TypeResponse Sex Female Sex Representation Female (finding) 11/20/2024 [facility] Social History TypeResponse Sex Female Sex Representation Female (finding) 11/19/2024 [facility] Social History TypeResponse Sex Female Sex Representation Female (finding) 10/15/2024 [facility] Social History TypeResponse Sex Female Sex Representation Female (finding) 10/13/2024 [facility]
[2024-12-29 12:09] VITALS: BP 124/70; BMI 35.9
[2025-01-25 15:26] VITALS: BP 199/85; PULSE 95; RESP 18; TEMP 36.7; O2SAT 93; BMI 34.5
--- NOTE | 2025-01-25 15:27 | W.ED.PSYCHS ---
Documented by User: MONSTER Mary 01/25/25 17:11 HPI - Psych General: Chief Complaint: Psychiatric Symptoms Stated Complaint: [facility] Time Seen by Provider: 01/25/25 15:26 Source: patient Mode of arrival: ambulatory Limitations: no limitations History of Present Illness: Patient is a 64-year-old female presents to ED today stating she is suicidal. She states she chronically has thoughts of wanting to fall asleep and never wake up however over the past 2 to 3 days she states she is now having active suicidal thoughts. She states the other day she was having voices in her head telling her to kill herself. She reports a previous suicide attempt just a few months ago by pill overdose. She does follow-up with [facility] but feels her medications are no longer working. MD complaint: suicidal ideation and feels depressed Onset (ago): day(s) Duration: constant History of same: Yes Relieving factors: none Exacerbating factors: none Associated psychiatric symptoms: depression and suicidal ideation Associated symptoms: Reports auditory hallucinations, depression and suicidal ideation; Deny homicidal ideation Treatments prior to arrival: none If self harm: admits thoughts of self harm Related Data Home Medications ?Medication ?Instructions ?Recorded ?Confirmed oxygen-air delivery systems 01/17/22 01/25/25 acetaminophen 325 mg tablet 325 mg PO QID PRN Pain 11/19/22 01/25/25 ibuprofen 200 mg tablet 200 mg PO Q6H PRN Pain 11/19/22 01/25/25 CPAP (Standard Cpap) 08/07/23 01/25/25 ensifentrine 3 mg/2.5 mL 2.5 ml inhalation BID 11/06/24 01/25/25 suspension for nebulization (Ohtuvayre) albuterol sulfate 90 mcg/actuation 2 puff inhalation Q8H PRN 01/25/25 01/25/25 aerosol inhaler Shortness Of Breath Or Wheezing atorvastatin 20 mg tablet 20 mg PO BEDTIME 01/25/25 01/25/25 budesonide-formoterol HFA 160 2 puff inhalation BID 01/25/25 01/25/25 mcg-4.5 mcg/actuation aerosol inhaler cholecalciferol (vitamin D3) 1,250 50,000 unit PO Q7D 01/25/25 01/25/25 mcg (50,000 unit) capsule ipratropium 20 mcg-albuterol 100 1 puff inhalation Q6H PRN 01/25/25 01/25/25 mcg/actuation mist for inhalation Shortness Of Breath (Combivent Respimat) lactulose 10 gram/15 mL oral 30 g PO TID 01/25/25 01/25/25 solution (Constulose) metoprolol succinate 25 mg 25 mg PO DAILY 01/25/25 01/25/25 tablet,extended release 24 hr quetiapine 200 mg tablet,extended 200 mg PO DAILY 01/25/25 01/25/25 release 24 hr (Seroquel XR) umeclidinium 62.5 mcg/actuation 1 inh inhalation DAILY 01/25/25 01/25/25 blister powder for inhalation (Incruse Ellipta) Previous Rx's ?Medication ?Instructions ?Recorded blood sugar diagnostic (Blood #100 ea 06/30/19 Glucose Test strips) blood-glucose meter (Blood Glucose #1 ea 01/22/20 Monitoring kit) flash glucose scanning reader #1 ea 08/01/20 (FreeStyle Jack 2 [place]) flash glucose sensor (FreeStyle #2 ea 08/01/20 Jack 2 Sensor kit) pen needle, diabetic 32 gauge x #100 ea 02/15/22 5/32 (BD Ultra-Fine Corine Pen Needle) nebulizer and supplies #1 ea 02/14/23 afflovest #1 ea 02/26/23 back brace #1 ea 04/15/23 [facility] #1 ea 06/18/23 pilocarpine HCl 5 mg tablet 5 mg PO TID #90 tabs 12/18/23 hydroxychloroquine 200 mg tablet 200 mg PO BID #180 tabs 03/16/24 Held on 06/05/24. Instructions: Resume on 06/16/24. insulin pump cart,auto,BT,G6/7 #5 ea 11/17/24 (Omnipod 5 G6-G7 Pods (Gen 5) subcutaneous cartridge) insulin pump cartridge,auto #1 ea 11/17/24 dose,BT,G6/G7 with controller subcutaneous (Omnipod 5 G6-G7 Intro Kit(Gen 5) subcutaneous cartridge and controller) flecainide 100 mg tablet 100 mg PO Q12H #60 tabs 12/04/24 bupropion HCl 300 mg 24 hr tablet, 300 mg PO QAM #30 tabs 12/07/24 extended release (Wellbutrin XL) zolpidem 5 mg tablet (Ambien) 5 mg PO BEDTIME PRN sleep #30 tabs 12/07/24 blood-glucose sensor (FreeStyle #6 ea 01/04/25 Jack 2 Plus Sensor device) clonazepam 0.5 mg tablet 0.5 mg PO BID PRN anxiety #60 tabs 01/05/25 flash glucose scanning reader #1 ea 01/06/25 (FreeStyle Jack 2 [place]) insulin pump cart,auto,BT,G6/L #5 ea 01/07/25 (Omnipod 5 (G6/Jack 2 Plus) subcutaneous cartridge) insulin pump cartridge,auto #1 ea 01/07/25 dose,BT,G6/L2 with controller subcutaneous (Omnipod 5 Intro Kit(G6/Tkfdx2Auzw) subcutaneous cartridge) insulin glargine 100 unit/mL (3 65 unit (0.65 mL) SUBCUT QAM #45 mL 01/18/25 mL) subcutaneous pen (Lantus Solostar U-100 Insulin) insulin lispro 100 unit/mL 20 unit (0.2 mL) SUBCUT TID #30 mL 01/18/25 subcutaneous pen (Humalog KwikPen (U-100) Insulin) tirzepatide 2.5 mg/0.5 mL 2.5 mg (0.5 mL) SUBCUT Q7D 1 month 01/19/25 subcutaneous pen injector #2.5 mL (Mounjaro) isosorbide mononitrate 30 mg 30 mg PO DAILY #90 tabs 01/25/25 tablet,extended release 24 hr Allergies Allergy/AdvReac Type Severity Reaction Status Date / Time Sulfa (Sulfonamide Allergy Unknown Unknown Verified 12/28/24 13:06 Antibiotics) Alpha-Gal Allergy Unknown Verified 01/25/25 19:03 (Vlfydmzkn-Yumnm-2,3-Gala quinine (From Quine) Allergy unknown Verified 12/28/24 13:06 ropinirole (From Requip) Allergy Unknown Verified 12/28/24 13:06 Review of Systems Const: Denies: fever(s) or chills Card: Denies: chest pain, palpitations, lightheadedness or syncope Resp: Denies: dyspnea GI: Denies: abdominal pain, nausea, vomiting or diarrhea Skin/Breast: Denies: rash Neuro: Denies: headache(s) Psych: Reports: depression, auditory hallucinations and suicidal ideation; Denies: paranoia or homicidal ideation PFS ED PFSH: Medical History Generalized anxiety disorder Sleep apnea Primary Sjogren's syndrome Lower extremity weakness Positive AMI (antinuclear antibody) Disorders of diaphragm Atelectasis of both lungs CHF (congestive heart failure), NYHA class III Drug-induced myopathy Recurrent pneumonia Emphysema lung Encephalopathy acute Acute and chronic respiratory failure with hypercapnia UTI (urinary tract infection) due to Enterococcus Excessive daytime sleepiness Diabetes type 2, controlled Insomnia Gross hematuria UTI (urinary tract infection) Psychiatric care Essential (primary) hypertension Chronic obstructive pulmonary disease with (acute) exacerbation Polyneuropathy, unspecified Callus Porokeratosis PVD (peripheral vascular disease) Shortness of Breath Bilateral leg edema Angina pectoris 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 with no history of malignant neoplasm AF (paroxysmal atrial fibrillation) Hypertension Tobacco abuse disorder Uncontrolled type 2 diabetes mellitus with polyneuropathy Acute DM type 2 causing complication Cannabis dependence, uncomplicated Nicotine dependence, cigarettes, with other nicotine-induced disorders Bipolar II disorder Post-traumatic stress disorder, chronic Surgical History H/O chest tube placement History of hysterectomy History of cholecystectomy History of appendectomy History of hernia repair Family History Father , AT AGE 21 Gunshot wound Mother , AT AGE 61 CAD (coronary artery disease) Other Cancer Diabetes Stroke Social History Smoking and tobacco/nicotine status: current every day tobacco/nicotine user cigarettes Packs smoked per day: 1.5 Years cigarettes smoked: 52 [ Other cigarette details: Started at age 10] Second hand smoke exposure: Yes Alcohol intake: current Alcohol intake frequency: holidays/special occasions only Alcohol type: other Substance/Drug Use: former Date of last use: 2020 Adopted: No Caregiver/support person: No Lives independently: Yes Household members: significant other Housing: Manufactured/Mobile home Marital status: Life Partner Number of children: 0 Number of grandchildren: 0 Highest education level completed: Some College, No Degree service: No Current occupational status: disabled 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 Current occupational exposures/hazards: No Pets and animals: Yes (3 dogs) Pets & animals: dog(s) Leisure activites: fishing and other Leisure activities details: sewing, writing, gardening Sexually active: Yes How many partners: 1 Do you think of yourself as: Lesbian/Gautam/Homosexual Current gender identity: Female Latha/Episcopalian: Mormonism Special latha needs: No Agree to transfusion: Yes Female Reproductive History: Para: 0 Spontaneous abortions: No Physical Exam Const: COMMON NORMALS: no acute distress, patient oriented x3, no limitations, alert and well nourished GENERAL APPEARANCE: cooperative NUTRITIONAL APPEARANCE: overweight ORIENTATION/CONSCIOUSNESS: Yes awake, Yes oriented to person, Yes oriented to place and Yes oriented to time Resp: COMMON NORMALS: normal respiratory effort and clear to auscultation bilaterally AUSCULTATION: clear to auscultation bilaterally Cardio: COMMON NORMALS: regular rate and regular rhythm RATE: regular rate RHYTHM: regular rhythm Neuro: COMMON NORMALS: patient oriented x3, moves all extremities, no focal motor deficits, no sensory deficits noted and gait normal SENSORIUM/ORIENTATION: Yes alert, Yes oriented to person, Yes oriented to place and Yes oriented to time Psych: COMMON NORMALS: mental status grossly normal, Normal thought process present, cooperative, normal affect, speech normal, activity/motor behavior normal and denies hallucinations APPEARANCE: Yes grossly normal ATTITUDE: Yes calm ACTIVITY/MOTOR BEHAVIOR: Yes appropriate eye contact and No psychomotor agitation SPEECH: Yes normal speech MOOD & AFFECT: Yes euthymic mood THOUGHT PROCESS: Normal thought process present THOUGHT CONTENT: Yes Suicidality present ATTENTION/CONCENTRATION: Yes attention grossly intact and Yes concentration grossly intact MEMORY/COGNITION: Yes memory grossly intact and Yes cognition grossly intact INSIGHT: Good insight present (Psych) JUDGEMENT: Good judgement present (Psych) Course Consultations: Consultation #1: Dr. Lujan-accepts to NPU Vital Signs: Vital signs: Vital Signs Temperature 97.4 F L 01/25/25 17:34 Pulse Rate 60 01/25/25 20:03 Respiratory Rate 18 01/25/25 20:03 Blood Pressure 184/92 01/25/25 20:03 Pulse Oximetry 94 01/25/25 20:03 Oxygen Delivery Me thod Room Air 01/25/25 20:03 MDM - Psych Medical Decision Making Patient is a 64-year-old female here for suicidal ideations. She was placed on a hold and will be and admitted to NPU to Dr. Lujan. Medical Records I reviewed the patient's medical records. Lab Data I reviewed the patient's lab results. 01/25/25 16:16 01/25/25 16:16 Laboratory Results WBC 9.35 10^3/uL (3.29-11.43) 01/25/25 16:16 RBC 4.79 10^6/uL (3.85-5.65) 01/25/25 16:16 Hgb 13.60 g/dL (11.27-16.99) 01/25/25 16:16 Hct 40.8 % (36-47) 01/25/25 16:16 MCV 85.2 fl (85-98) 01/25/25 16:16 MCH 28.4 pg (27-33) 01/25/25 16:16 MCHC 33.3 g/dL (30-55) 01/25/25 16:16 RDW 12.9 % (12.1-15.1) 01/25/25 16:16 Plt Count 228 10^3/cmm (157-399) 01/25/25 16:16 MPV 9.4 fL (7.4-10.4) 01/25/25 16:16 Neut % (Auto) 74.5 % 01/25/25 16:16 Lymph % (Auto) 16.8 % 01/25/25 16:16 [place] % (Auto) 6.2 % 01/25/25 16:16 Eos % (Auto) 2.0 % 01/25/25 16:16 Baso % (Auto) 0.2 % 01/25/25 16:16 Neut # (Auto) 6.96 10^3/uL (1.8-7.7) 01/25/25 16:16 Lymph # (Auto) 1.6 10^3/uL (0.8-4.8) 01/25/25 16:16 [place] # (Auto) 0.6 10^3/uL (0.2-0.9) 01/25/25 16:16 Eos # (Auto) 0.2 10^3/uL (0.0-0.8) 01/25/25 16:16 Baso # (Auto) 0.0 10^3/uL (0.0-0.1) 01/25/25 16:16 Nucleated RBC % (auto) 0 % 01/25/25 16:16 Nucleated RBCs # 0.0 /100WBC 01/25/25 16:16 Sodium 135 mmol/L (136-145) L 01/25/25 16:16 Potassium 4.2 mmol/L (3.5-5.1) 01/25/25 16:16 Chloride 96 mmol/L (98-107) L 01/25/25 16:16 Carbon Dioxide 26 mmol/L (22-29) 01/25/25 16:16 Anion Gap 17.2 (5-19) 01/25/25 16:16 BUN 22 mg/dL (8-23) 01/25/25 16:16 Creatinine 0.9 mg/dL (0.5-0.9) 01/25/25 16:16 GFR Calculation 63.0 mL/min (90-130) L 01/25/25 16:16 Glucose 194 mg/dL (65-115) H 01/25/25 16:16 Calculated Osmolality 289 mOsm/kg (285-295) 01/25/25 16:16 Calcium 9.8 mg/dL (8.5-10.5) 01/25/25 16:16 Total Bilirubin 0.2 mg/dL (0.15-1.2) 01/25/25 16:16 AST 10 U/L (0-32) 01/25/25 16:16 ALT 10 U/L (0-33) 01/25/25 16:16 Alkaline Phosphatase 95 U/L (35-105) 01/25/25 16:16 Total Protein 6.9 g/dL (6.6-8.7) 01/25/25 16:16 Albumin 4.2 g/dL (3.5-5.2) 01/25/25 16:16 Globulin 2.7 g/dL (1.3-4.6) 01/25/25 16:16 Salicylates < 0.3 mg/dL (3-10) L 01/25/25 16:16 Urine Opiates Screen Negative ng/mL (Negative) 01/25/25 15:42 Acetaminophen 5.6 ug/mL (10-30) L 01/25/25 16:16 Ur Barbiturates Screen Negative ng/mL (Negative) 01/25/25 15:42 Ur Phencyclidine Scrn Negative ng/mL (Negative) 01/25/25 15:42 Ur Amphetamines Screen Negative ng/mL (Negative) 01/25/25 15:42 U Benzodiazepines Scrn Positive ng/mL (Negative) H 01/25/25 15:42 Urine Cocaine Screen Negative ng/mL (Negative) 01/25/25 15:42 U Marijuana (THC) Screen Positive ng/mL (Negative) H 01/25/25 15:42 Ethyl Alcohol < 10 mg/dL (0-10) 01/25/25 16:16 No radiology studies performed this visit Discharge Plan Discharge Patient Disposition: Admitted As Inpatient Admit Provider: Brandyn Lujan Clinical Impression: Involuntary commitment, Suicidal ideation Condition: Stable Coding Level of Care Code ED Refuse Collector for Chg Fwd Documented by User: Ramses Pina DO 01/26/25 06:01 HPI - Psych General: Chief Complaint: Psychiatric Symptoms Stated Complaint: SI, [facility] Time Seen by Provider: 01/25/25 15:26 Related Data Home Medications ?Medication ?Instructions ?Recorded ?Confirmed oxygen-air delivery systems 01/17/22 01/25/25 acetaminophen 325 mg tablet 325 mg PO QID PRN Pain 11/19/22 01/25/25 ibuprofen 200 mg tablet 200 mg PO Q6H PRN Pain 11/19/22 01/25/25 CPAP (Standard Cpap) 08/07/23 01/25/25 ensifentrine 3 mg/2.5 mL 2.5 ml inhalation BID 11/06/24 01/25/25 suspension for nebulization (Ohtuvayre) albuterol sulfate 90 mcg/actuation 2 puff inhalation Q8H PRN 01/25/25 01/25/25 aerosol inhaler Shortness Of Breath Or Wheezing atorvastatin 20 mg tablet 20 mg PO BEDTIME 01/25/25 01/25/25 budesonide-formoterol HFA 160 2 puff inhalation BID 01/25/25 01/25/25 mcg-4.5 mcg/actuation aerosol inhaler cholecalciferol (vitamin D3) 1,250 50,000 unit PO Q7D 01/25/25 01/25/25 mcg (50,000 unit) capsule ipratropium 20 mcg-albuterol 100 1 puff inhalation Q6H PRN 01/25/25 01/25/25 mcg/actuation mist for inhalation Shortness Of Breath (Combivent Respimat) lactulose 10 gram/15 mL oral 30 g PO TID 01/25/25 01/25/25 solution (Constulose) metoprolol succinate 25 mg 25 mg PO DAILY 01/25/25 01/25/25 tablet,extended release 24 hr quetiapine 200 mg tablet,extended 200 mg PO DAILY 01/25/25 01/25/25 release 24 hr (Seroquel XR) umeclidinium 62.5 mcg/actuation 1 inh inhalation DAILY 01/25/25 01/25/25 blister powder for inhalation (Incruse Ellipta) Previous Rx's ?Medication ?Instructions ?Recorded blood sugar diagnostic (Blood #100 ea 06/30/19 Glucose Test strips) blood-glucose meter (Blood Glucose #1 ea 01/22/20 Monitoring kit) flash glucose scanning reader #1 ea 08/01/20 (FreeStyle Jack 2 [place]) flash glucose sensor (FreeStyle #2 ea 08/01/20 Jack 2 Sensor kit) pen needle, diabetic 32 gauge x #100 ea 02/15/22 5/32 (BD Ultra-Fine Corine Pen Needle) nebulizer and supplies #1 ea 02/14/23 afflovest #1 ea 02/26/23 back brace #1 ea 04/15/23 [facility] #1 ea 06/18/23 pilocarpine HCl 5 mg tablet 5 mg PO TID #90 tabs 12/18/23 hydroxychloroquine 200 mg tablet 200 mg PO BID #180 tabs 03/16/24 Held on 06/05/24. Instructions: Resume on 06/16/24. insulin pump cart,auto,BT,G6/7 #5 ea 11/17/24 (Omnipod 5 G6-G7 Pods (Gen 5) subcutaneous cartridge) insulin pump cartridge,auto #1 ea 11/17/24 dose,BT,G6/G7 with controller subcutaneous (Omnipod 5 G6-G7 Intro Kit(Gen 5) subcutaneous cartridge and controller) flecainide 100 mg tablet 100 mg PO Q12H #60 tabs 12/04/24 bupropion HCl 300 mg 24 hr tablet, 300 mg PO QAM #30 tabs 12/07/24 extended release (Wellbutrin XL) zolpidem 5 mg tablet (Ambien) 5 mg PO BEDTIME PRN sleep #30 tabs 12/07/24 blood-glucose sensor (FreeStyle #6 ea 01/04/25 Jack 2 Plus Sensor device) clonazepam 0.5 mg tablet 0.5 mg PO BID PRN anxiety #60 tabs 01/05/25 flash glucose scanning reader #1 ea 01/06/25 (FreeStyle Jack 2 [place]) insulin pump cart,auto,BT,G6/L #5 ea 01/07/25 (Omnipod 5 (G6/Jack 2 Plus) subcutaneous cartridge) insulin pump cartridge,auto #1 ea 01/07/25 dose,BT,G6/L2 with controller subcutaneous (Omnipod 5 Intro Kit(G6/Sgnle4Yzae) subcutaneous cartridge) insulin glargine 100 unit/mL (3 65 unit (0.65 mL) SUBCUT QAM #45 mL 01/18/25 mL) subcutaneous pen (Lantus Solostar U-100 Insulin) insulin lispro 100 unit/mL 20 unit (0.2 mL) SUBCUT TID #30 mL 01/18/25 subcutaneous pen (Humalog KwikPen (U-100) Insulin) tirzepatide 2.5 mg/0.5 mL 2.5 mg (0.5 mL) SUBCUT Q7D 1 month 01/19/25 subcutaneous pen injector #2.5 mL (Mounjaro) isosorbide mononitrate 30 mg 30 mg PO DAILY #90 tabs 01/25/25 tablet,extended release 24 hr Allergies Allergy/AdvReac Type Severity Reaction Status Date / Time Sulfa (Sulfonamide Allergy Unknown Unknown Verified 12/28/24 13:06 Antibiotics) Alpha-Gal Allergy Unknown Verified 01/25/25 19:03 (Bvsksdcvf-Dnrdw-5,3-Gala quinine (From Quine) Allergy unknown Verified 12/28/24 13:06 ropinirole (From Requip) Allergy Unknown Verified 12/28/24 13:06 PFSH ED PFSH: Medical History Generalized anxiety disorder Sleep apnea Primary Sjogren's syndrome Lower extremity weakness Positive AMI (antinuclear antibody) Disorders of diaphragm Atelectasis of both lungs CHF (congestive heart failure), NYHA class III Drug-induced myopathy Recurrent pneumonia Emphysema lung Encephalopathy acute Acute and chronic respiratory failure with hypercapnia UTI (urinary tract infection) due to Enterococcus Excessive daytime sleepiness Diabetes type 2, controlled Insomnia Gross hematuria UTI (urinary tract infection) Psychiatric care Essential (primary) hypertension Chronic obstructive pulmonary disease with (acute) exacerbation Polyneuropathy, unspecified Callus Porokeratosis PVD (peripheral vascular disease) Shortness of Breath Bilateral leg edema Angina pectoris 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 with no history of malignant neoplasm AF (paroxysmal atrial fibrillation) Hypertension Tobacco abuse disorder Uncontrolled type 2 diabetes mellitus with polyneuropathy Acute DM type 2 causing complication Cannabis dependence, uncomplicated Nicotine dependence, cigarettes, with other nicotine-induced disorders Bipolar II disorder Post-traumatic stress disorder, chronic Surgical History H/O chest tube placement History of hysterectomy History of cholecystectomy History of appendectomy History of hernia repair Family History Father , AT AGE 21 Gunshot wound Mother , AT AGE 61 CAD (coronary artery disease) Other Cancer Diabetes Stroke Social History Smoking and tobacco/nicotine status: current every day tobacco/nicotine user cigarettes Packs smoked per day: 1.5 Years cigarettes smoked: 52 [ Other cigarette details: Started at age 10] Second hand smoke exposure: Yes Alcohol intake: current Alcohol intake frequency: holidays/special occasions only Alcohol type: other Substance/Drug Use: former Date of last use: 2020 Adopted: No Caregiver/support person: No Lives independently: Yes Household members: significant other Housing: Manufactured/Mobile home Marital status: Life Partner Number of children: 0 Number of grandchildren: 0 Highest education level completed: Some College, No Degree service: No Current occupational status: disabled 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 Current occupational exposures/hazards: No Pets and animals: Yes (3 dogs) Pets & animals: dog(s) Leisure activites: fishing and other Leisure activities details: sewing, writing, gardening Sexually active: Yes How many partners: 1 Do you think of yourself as: Lesbian/Gautam/Homosexual Current gender identity: Female Latha/Episcopalian: Mormonism Special latha needs: No Agree to transfusion: Yes Course Vital Signs: Vital signs: Vital Signs Temperature 97.4 F L 01/25/25 17:34 Pulse Rate 60 01/25/25 20:03 Respiratory Rate 18 01/25/25 20:03 Blood Pressure 184/92 01/25/25 20:03 Pulse Oximetry 94 01/25/25 20:03 Oxygen Delivery Me thod Room Air 01/25/25 20:03 MDM - Psych Medical Decision Making Patient is a 64-year-old female here for suicidal ideations. She was placed on a hold and will be and admitted to NPU to Dr. Lujan. Chart reviewed and patient discussed with midlevel. Agree with assessment and plan. Lab Data 01/25/25 16:16 01/25/25 16:16 Laboratory Results WBC 9.35 10^3/uL (3.29-11.43) 01/25/25 16:16 RBC 4.79 10^6/uL (3.85-5.65) 01/25/25 16:16 Hgb 13.60 g/dL (11.27-16.99) 01/25/25 16:16 Hct 40.8 % (36-47) 01/25/25 16:16 MCV 85.2 fl (85-98) 01/25/25 16:16 MCH 28.4 pg (27-33) 01/25/25 16:16 MCHC 33.3 g/dL (30-55) 01/25/25 16:16 RDW 12.9 % (12.1-15.1) 01/25/25 16:16 Plt Count 228 10^3/cmm (157-399) 01/25/25 16:16 MPV 9.4 fL (7.4-10.4) 01/25/25 16:16 Neut % (Auto) 74.5 % 01/25/25 16:16 Lymph % (Auto) 16.8 % 01/25/25 16:16 [place] % (Auto) 6.2 % 01/25/25 16:16 Eos % (Auto) 2.0 % 01/25/25 16:16 Baso % (Auto) 0.2 % 01/25/25 16:16 Neut # (Auto) 6.96 10^3/uL (1.8-7.7) 01/25/25 16:16 Lymph # (Auto) 1.6 10^3/uL (0.8-4.8) 01/25/25 16:16 [place] # (Auto) 0.6 10^3/uL (0.2-0.9) 01/25/25 16:16 Eos # (Auto) 0.2 10^3/uL (0.0-0.8) 01/25/25 16:16 Baso # (Auto) 0.0 10^3/uL (0.0-0.1) 01/25/25 16:16 Nucleated RBC % (auto) 0 % 01/25/25 16:16 Nucleated RBCs # 0.0 /100WBC 01/25/25 16:16 Sodium 135 mmol/L (136-145) L 01/25/25 16:16 Potassium 4.2 mmol/L (3.5-5.1) 01/25/25 16:16 Chloride 96 mmol/L (98-107) L 01/25/25 16:16 Carbon Dioxide 26 mmol/L (22-29) 01/25/25 16:16 Anion Gap 17.2 (5-19) 01/25/25 16:16 BUN 22 mg/dL (8-23) 01/25/25 16:16 Creatinine 0.9 mg/dL (0.5-0.9) 01/25/25 16:16 GFR Calculation 63.0 mL/min (90-130) L 01/25/25 16:16 Glucose 194 mg/dL (65-115) H 01/25/25 16:16 Calculated Osmolality 289 mOsm/kg (285-295) 01/25/25 16:16 Calcium 9.8 mg/dL (8.5-10.5) 01/25/25 16:16 Total Bilirubin 0.2 mg/dL (0.15-1.2) 01/25/25 16:16 AST 10 U/L (0-32) 01/25/25 16:16 ALT 10 U/L (0-33) 01/25/25 16:16 Alkaline Phosphatase 95 U/L (35-105) 01/25/25 16:16 Total Protein 6.9 g/dL (6.6-8.7) 01/25/25 16:16 Albumin 4.2 g/dL (3.5-5.2) 01/25/25 16:16 Globulin 2.7 g/dL (1.3-4.6) 01/25/25 16:16 Salicylates < 0.3 mg/dL (3-10) L 01/25/25 16:16 Urine Opiates Screen Negative ng/mL (Negative) 01/25/25 15:42 Acetaminophen 5.6 ug/mL (10-30) L 01/25/25 16:16 Ur Barbiturates Screen Negative ng/mL (Negative) 01/25/25 15:42 Ur Phencyclidine Scrn Negative ng/mL (Negative) 01/25/25 15:42 Ur Amphetamines Screen Negative ng/mL (Negative) 01/25/25 15:42 U Benzodiazepines Scrn Positive ng/mL (Negative) H 01/25/25 15:42 Urine Cocaine Screen Negative ng/mL (Negative) 01/25/25 15:42 U Marijuana (THC) Screen Positive ng/mL (Negative) H 01/25/25 15:42 Ethyl Alcohol < 10 mg/dL (0-10) 01/25/25 16:16 Discharge Plan Discharge Patient Disposition: Admitted As Inpatient Admit Provider: Brandyn Lujan Clinical Impression: Involuntary commitment, Suicidal ideation Condition: Stable Coding Level of Care Code ED Refuse Collector for Cordell Cortez
[2025-01-25 16:10] LABS: PCP Screen Urine Negative (Negative)
--- NOTE | 2025-01-25 16:33 | PC.PHAR ---
Pt states Radha took her off of Metoprolol Succ. ER 25mg and lisinipril 40mg.
[2025-01-25 16:34] LABS: Hematocrit 40.8 % (36-47); Hemoglobin 13.60 g/dL (11.27-16.99); Mean Corpuscular HGB Conc 33.3 g/dL (30-55); Mean Corpuscular Hemoglobin 28.4 pg (27-33); Mean Corpuscular Volume 85.2 fl (85-98); Nucleated Red Blood Cells % 0 %; Platelet Count 228 10^3/cmm (157-399); Red Blood Count 4.79 10^6/uL (3.85-5.65); White Blood Count 9.35 10^3/uL (3.29-11.43)
--- OUTSIDE RECORDS SUMMARY | 2025-01-25 16:35 | XMS_ITS | Encounter Summary ---
Author Organization [facility] Address [address] [place] [address] Care Team Providers Care Pocket Setter Name Role Phone Non-Staff, Physician Primary Care Provider Unava ilable Encounter Details Date Type Department Care Team (Latest Contact Info) Description 12/12/2006 Outpatient Historical 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
--- OUTSIDE RECORDS SUMMARY | 2025-01-25 16:35 | XMS_ITS | Encounter Summary ---
Author Organization [facility] Address [address] [place] [address] Care Team Providers Care Peripheral Equipment Operator Name Role Phone Unavailable Primary Care Provider Unavailabl e Encounter Details Date Type Department Care Team (Late st Contact Info) Description 01/13/2025 Orders Only [facility] Pulmon[facility] [address] [place] [address] Shannon Anglin NP [address] [place] [address] Social History Tobacco Use Types Packs/Day Years Used Date Smoking Tobacco: Every Day Cigarettes 1.5 53 Smokeless Tobacco: Never Comments:Quit smokin.5 p acks Alcohol Use Standard Drinks/Week Comments No 0 (1 standard drink = 0.6 oz pur e alcohol) Feeling Safe Answer Date Recorded Are you in a relationship wi th someone who hurts you emotionally and/or physically? 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 Gender Identity Not on file Sexual Orientation Not on file documented as of this encounter Plan of Treatment Upcoming Encounters Date Type Department Care Team (Late st Contact Info) Description 02/16/2025 11:30 AM CDT [facility] [place] [address] [place] [phone] Shannon Anglin NP [address] [place] [address] 03/12/2025 11:30 AM CDT Telemed [facility] [place] [address] [place] [address] Elisha Stanford MD [address] [phone] documented as of this encounter Procedures Procedure Name Priority Date/Time Associated Diagnosis Comments PULSE OXIMETRY, OVERNIGHT Routine 01/07/2025 1:41 PM CDT PULSE OXIMETRY, OVERNIGHT Routine 01/07/2025 1:40 PM CDT documented in this encounter Results * PULSE OXIMETRY, OVERNIGHT (01/07/2025 1:41 PM CDT) us Shannon Anglin TRACTOR CRANE OPERATOR RESPIRATORY CARE ORDERABLES Fin al Result * PULSE OXIMETRY, OVERNIGHT (01/07/2025 1:40 PM CDT) us Shannon Anglin TRACTOR CRANE OPERATOR RESPIRATORY CARE ORDERABLES Fin al Result documented in this encounter Visit Diagnoses Not on filedocumented in this encounter Additional Health Concerns Assessment Noted Time PHQ-9 Depression Total Score: 5 04/20/20 24 6:28 PM BAND TEACHER documented as of this encounter
--- OUTSIDE RECORDS SUMMARY | 2025-01-25 16:35 | XMS_ITS | Encounter Summary ---
Author Organization [facility] Address [address] [place] [address] Care Team Providers Care Machine Operator General Name Role Phone Non-Staff, Physician Primary Care Provider Unava ilable Encounter Details Date Type Department Care Team (Late st Contact Info) Description 01/12/2020 Ancillary Orders [facility] [address] [place] [address] Marguerite Wade, PRODUCT SUPPORT ANALYST [address] [place] [address] Wheezing Social History Tobacco Use Types Packs/Day Years Used Date Smoking Tobacco: Every Day Cigarettes 1 25 Smokeless Tobacco: Never Comments:1.5 packs Alcohol Use Standard Drinks/Week Comments No 0 (1 standard drink = 0.6 oz pur e alcohol) Comments No Sex and Gender Information Value Date Recorded Sex Assigned at Not on file Legal 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 IMPRESSION: Increased interstitium. No acute pathology. [id number] Narrative Procedure Note Hiro Jain MD - [...] spine. IMPRESSION: Increased interstitium. No acute pathology. [id number] Marguerite Wade PRODUCT SUPPORT ANALYST DIAGNOSTIC IMAGING ORDERABL ES Final Result documented in this encounter Visit Diagnoses Diagnosis Wheezing Wheezing documented in this encounter Care Teams Machine Operator General Relationship Specialty Start Date End Date Non-Staff, Physician NO ADDRESS ON FILE PCP - General 12/15/19 documented as of this encounter
--- OUTSIDE RECORDS SUMMARY | 2025-01-25 16:35 | XMS_ITS | Encounter Summary ---
Author Organization [facility] Address [address] [place] [address] Care Team Providers Care Building Maintenance Repairer Name Role Phone Non-Staff, Physician Primary Care Provider Unava ilable Encounter Details Date Type Department Care Team (Latest Contact Info) Description 10/25/2005 Outpatient Historical [facility] Medicine [place] [address] [facility] [address] [place] [address] Marguerite Wade, DIMENSION STONE QUARRY SUPERVISOR [address] [place] [address] Pain in Joint, Shoulder Region (Primary Dx); Urinary Frequency Social History Tobacco Use Types Packs/Day Years Used Date Smoking Tobacco: Never Assessed Comments Unknown Sex and Gender Information Value Date Recorded Sex Assigned at Not on file Legal Sex Female 2:51 AM RN CAMP Gender Identity Not on file Sexual Orientation Not on file documented as of this encounter Plan of Treatment Not on file documented as of this encounter Visit Diagnoses Diagnosis Pain in joint, shoulder region- Primary Urinary frequency documented in this encounter Care Teams Building Maintenance Repairer Relationship Specialty Start Date End Date Non-Staff, Physician NO ADDRESS ON FILE PCP - General 12/15/19 documented as of this encounter
--- OUTSIDE RECORDS SUMMARY | 2025-01-25 16:35 | XMS_ITS | Clinical Summary ---
Author Organization [facility] Address [address] [place] [address] Care Team Providers Care Faculty Criminal Justice Name Role Phone Marguerite Wade TAX ASSESSOR Primary Care Provider [phone] Allergies No known active allergies Medications * This document contains information received from the source organization and may not represent a complete record from that organization. ipratropium-alb uterol (COMBIVENT RESPIMAT) 20-100 MCG/ACT inhaler Inhale 1 puff every 6 (six) hours Active albuterol HFA (PROVENTIL HFA;VENTOLIN HFA) 108 (90 Base) MCG/ACT inhaler Inhale 2 puffs every 4 (four) hours if needed for wheezing Active cyclobenzaprine (FLEXERIL) 10 MG tablet Take 10 mg by mouth every night Active insulin glargine (LANTUS) 100 UNIT/ML injection 55 Units 1 (one) time each day Active metoprolol succinate XL (TOPROL-XL) 50 MG 24 hr tablet Take 50 mg by mouth 1 (one) time each day Do not crush or chew. Active gabapentin (NEURONTIN) 600 MG tablet Take 600 mg by mouth 3 (three) times a day Active amLODIPine (NORVASC) 10 MG tablet Take 10 mg by mouth 1 (one) time each day Active chlorthalidone (HYGROTON) 25 MG tablet Take 25 mg by mouth 1 (one) time each day Active ARIPiprazole (ABILIFY) 20 MG tablet Take 20 mg by mouth 1 (one) time each day Active metFORMIN (GLUCOPHAGE) 1000 MG tablet Take 1,000 mg by mouth 2 (two) times a day with meals Active lisinopril (PRINIVIL,ZESTR IL) 40 MG tablet TAKE 1 TABLET(40 MG) BY MOUTH 1 TIME EACH DAY 30 tablet 11 09/21/2020 Active Xarelto 20 MG tablet Take 1 tablet by mouth 1 (one) time each day 12/18/2020 Active spironolactone (ALDACTONE) 50 MG tablet Take 50 mg by mouth daily Active Victoza 18 MG/3ML injection Inject 1.8 mg under the skin 1 (one) time each day 12/15/2020 Active hydroCHLOROthia zide 25 MG tablet Take 25 mg by mouth 1 (one) time each day 01/09/2021 Active clonazePAM (KlonoPIN) 0.5 MG tablet Take by mouth 1 (one) time each day if needed 12/18/2020 Active busPIRone (BUSPAR) 30 MG tablet Take 1 tablet by mouth twice a day 12/18/2020 Active buPROPion XL (WELLBUTRIN XL) 300 MG 24 hr tablet Take 1 tablet by mouth 1 (one) time each day 12/18/2020 Active Symbicort 160-4.5 MCG/ACT inhaler Inhale 2 puffs 2 (two) times a day 12/18/2020 Active atorvastatin (LIPITOR) 20 MG tablet Take 20 mg by mouth 1 (one) time each day 01/10/2021 Active Active Problems Problem Noted Date Diagnosed Date Hyperglycemia due to type 2 diabetes mellitus 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/2011 Type 2 diabetes mellitus without complication Overview (11/17/2018): Lab Results Component Value Date/Time HGBA1C 8.8* 06/16/2015 09:02 AM Lab Results Component Value Date/Time MICRCREATR 397.4 06/28/2015 09:51 AM MICRALBURINE 33.9 06/28/2015 09:51 AM Lab Results Component Value Date/Time CHOLTOT 144 01/12/2014 07:56 AM HDL 32* 01/12/2014 07:56 AM LDLCALC 97 01/12/2014 07:56 AM TRIGLYCERIDE 75 01/12/2014 07:56 AM Last Assessment & Plan: Diabetes: Inadequate control. Medications reviewed and refilled/adjusted as indicated. See medication orders. Labs ordered/reviewed. Reminded to get yearly retinal exam. Addressed ADA/low CHO diet. Encouraged aerobic exercise. Family History Medical History Relation Comments Diabetes Brother Hypertension Brother Hypertension Mother Relation Status Comments Brother Mother Social History Tobacco Use Types Packs/Day Years Used Date Smoking Tobacco: Every Day Cigarettes Smokeless Tobacco: Never Alcohol Use Standard Drinks/Week Comments Not Currently 0 (1 standard drink = 0.6 oz pur e alcohol) Comments Unknown Sex and Gender Information Value Date Recorded Sex Assigned at Not on file Legal Sex Female 12:47 PM EST Gender Identity Not on file Sexual Orientation Not on file Last Filed Vital Signs Vital Sign Reading Time Taken Comments Blood Pressure 120/80 01/19/2021 9:27 AM CDT Pulse 64 01/19/2021 9:27 AM CDT Temperature 36.3 C (97.3 F) 01/13/2020 2:02 PM CDT Respiratory Rate - - Oxygen Saturation - - Inhaled Oxygen Concentration - - Weight 134 kg (296 lb) 01/19/2021 9:27 AM CDT Height 177.8 cm (5' 10 ) 01/19/2021 9:27 AM CDT Body Mass Index 42.47 01/19/2021 9:27 AM CDT Plan of Treatment Health Maintenance Due Date Last Done Comments Breast Cancer Screening 1960 Pneumococcal Vaccine: 50+ Ye ars (1 of 2 - PCV) 1979 Colorectal Cancer Screening: Annual FOBT 2009 Colorectal Cancer Screening: Sigmoidoscopy 2009 Diabetes: Ophthalmology Exam 07/17/2018 Diabetes: Pedal Pulse Checked 07/17/2018 Diabetes: Sensory Foot Exam 07/17/2018 Diabetes: Visual Foot Exam 07/17/2018 Hepatitis B Vaccine (1 of 3 - Risk 3-dose series) 2020 Colorectal Cancer Screening: Colonoscopy 08/03/2024 08/03/2014 Influenza Vaccine (#1) 2025 Diabetes: Hemoglobin A1C 02/07/2025 025, 04/20/2024, 01/12/2020, Additional history exists Procedures Procedure Name Priority Date/Time Associated Diagnosis Comments HEMOGLOBIN A1C Routine 03/11/2018 from Last 3 Months or Most Recently Relevant to Health Maintenance Results * (ABNORMAL) Hemoglobin A1c (03/11/2018) Hemoglobin A1C 8.1(A) 4.0 - 6.0 Blood specimen (specimen) Venous blood / Unknown 03/11/2018 us Generic External Data Provider LAB BLOOD ORDERAB LES Final Result from Last 3 Months or Most Recently Relevant to Health Maintenance Insurance Medicaid [place] ([id number]) [facility] Dual Elig MCR/MIKIE Care Teams Faculty Criminal Justice Relationship Specialty Start Date End Date Marguerite Wade FNP [address] [place] [address] PCP - General Internal Medicine 07/16/18
--- OUTSIDE RECORDS SUMMARY | 2025-01-25 16:35 | XMS_ITS | Encounter Summary ---
Author Organization [facility] Address [address] [place] [address] Care Team Providers Care Controls Engineer Name Role Phone Non-Staff, Physician Primary Care Provider Unava ilable Encounter Details Date Type Department Care Team (Latest Contact Info) Description 07/05/[address] [facility] [address] [place] [address] Marguerite Wade, SOILS ENGINEER [address] [place] [address] OTHER CONSTIPATION (Primary Dx); Benign hypertension Social History Tobacco Use Types Packs/Day Years Used Date Smoking Tobacco: Never Assessed Comments Unknown Sex and Gender Information Value Date Recorded Sex Assigned at Not on file Legal Sex Female 2:51 AM TRACK SUPERVISOR Gender Identity Not on file Sexual Orientation Not on file documented as of this encounter Plan of Treatment Not on file documented as of this encounter Visit Diagnoses Diagnosis Other constipation- Primary Benign hypertension Essential hypertension, benign documented in this encounter Care Teams Controls Engineer Relationship Specialty Start Date End Date Non-Staff, Physician NO ADDRESS ON FILE PCP - General 12/15/19 documented as of this encounter
--- OUTSIDE RECORDS SUMMARY | 2025-01-25 16:35 | XMS_ITS | Encounter Summary ---
Author Organization [facility] Address [address] [place] [address] Care Team Providers Care Compliance Monitor Name Role Phone Non-Staff, Physician Primary Care Provider Unava ilable Encounter Details Date Type Department Care Team (Late st Contact Info) Description 12/10/2006 Outpatient Historical [facility] Dieter Lizeth [address] [place] [address] Social History Tobacco Use Types Packs/Day Years Used Date Smoking Tobacco: Never Assessed Comments Unknown Sex and Gender Information Value Date Recorded Sex Assigned at Not on file Legal Sex Female 2:51 AM PRODUCE TEAM MEMBER Gender Identity Not on file Sexual Orientation Not on file documented as of this encounter Plan of Treatment Not on file documented as of this encounter Visit Diagnoses Not on filedocumented in this encounter Care Teams Compliance Monitor Relationship Specialty Start Date End Date Non-Staff, Physician NO ADDRESS ON FILE PCP - General 12/15/19 documented as of this encounter
--- OUTSIDE RECORDS SUMMARY | 2025-01-25 16:35 | XMS_ITS | Encounter Summary ---
Author Organization [facility], [facility] Address [address] [place] [address] Phone Care Team Providers Care Inside Account Executive Name Role Phone Marguerite Wade LILLIE Primary Care Provider [phone] Encounter Details Date Type Department Care Team (Late st Contact Info) Description 08/13/2018 Orders Only [facility], [facility] [address] [place] [address] Mendez Reyes MD [address] [place] [address] Persistent proteinuria Social History Tobacco Use Types Packs/Day Years [...] on file documented as of this encounter Procedures Procedure Name Priority Date/Time Associated Diagnosis Comments RENAL FUNCTION PANEL Routine 07/18/2018 Persistent proteinuria documented in this encounter Results * Renal function panel (07/18/2018) Albumin 4.1 3.5 - 5.0 G/DL [facility] BUN 14 4 - 21 mg/dL [facility] Calcium 9.9 8.7 - 10.7 mg/dL [facility] Chloride 102 99 - 108 [facility] Bicarbonate (CO2) 28 22 - 30 mmol/L [facility] Creatinine 0.66 0.50 - 1.10 mg/dL [facility] eGFR mL/min/1.7 3m*2 [facility] Comment:>60 eGFR Non- mL/min/1.7 3m*2 [facility] Comment:>60 Glucose 100 [facility] Phosphorus, Serum 4.1 [facility] Potassium 4.1 3.4 - 5.5 [facility] Sodium 142 137 - 147 [facility] Blood specimen (specimen) Venous blood / Unknown 07/18/2018 Narrative [facility] - 07/22/2018 11:18 AM [facility], [facility] # [id number], [address] [place] [id number] Director: Nat Alonzo MD As ordered lab us Mendez Reyes MD LAB BLOOD ORDERABLES Fi nal Result [facility] documented in this encounter Visit Diagnoses Diagnosis Persistent proteinuria documented in this encounter Care Teams Inside Account Executive Relationship Specialty Start Date End Date Marguerite Wade FNP [address] [place], [place] [address] PCP - General Internal Medicine 07/16/18 documented as of this encounter
--- OUTSIDE RECORDS SUMMARY | 2025-01-25 16:35 | XMS_ITS | Encounter Summary ---
Author Organization [facility] Address [address] [place] [address] Care Team Providers Care Principal Java Developer Name Role Phone Non-Staff, Physician Primary Care Provider Unava ilable Encounter Details Date Type Department Care Team (Latest Contact Info) Description 11/10/2003 Outpatient Historical [facility] [address] [place] [address] Marguerite Wade, TRANSITION NURSE [address] [place] [address] GONZALEZ'S PALSY (Primary Dx) Social History Tobacco Use Types Packs/Day Years Used Date Smoking Tobacco: Never Assessed Comments Unknown Sex and Gender Information Value Date Recorded Sex Assigned at Not on file Legal Sex Female 2:51 AM AUDIT CONTROL CLERK Gender Identity Not on file Sexual Orientation Not on file documented as of this encounter Plan of Treatment Not on file documented as of this encounter Visit Diagnoses Diagnosis Gonzalez's palsy- Primary documented in this encounter Care Teams Principal Java Developer Relationship Specialty Start Date End Date Non-Staff, Physician NO ADDRESS ON FILE PCP - General 12/15/19 documented as of this encounter
--- OUTSIDE RECORDS SUMMARY | 2025-01-25 16:35 | XMS_ITS | Encounter Summary ---
Author Organization [facility] Address [address] [place] [address] Care Team Providers Care Radiographer Technologist Name Role Phone Non-Staff, Physician Primary Care Provider Unava ilable Encounter Details Date Type Department Care Team (Late st Contact Info) Description 07/07/2019 Ancillary Orders [facility] [address] [place] [address] Marguerite Wade, LEAD PASTOR [address] [place] [address] Breath shortness Social History Tobacco Use Types Packs/Day Years Used Date Smoking Tobacco: Every Day Cigarettes 1.5 25 Smokeless Tobacco: Never Comments:1.5 packs Alcohol Use Standard Drinks/Week Comments No 0 (1 standard drink = 0.6 oz pur e alcohol) Comments No Sex and Gender Information Value Date Recorded Sex Assigned at Not on file Legal Sex Female 2:51 AM IT RECRUITER Gender Identity Not on file Sexual Orientation Not on file Occupation Industry Job Start Date Job End Date Not on file Not on file Not on file Not on file documented as of this encounter Plan of Treatment Not on file documented as of this encounter Results * XR CHEST PA AND LATERAL 2 VW (07/07/2019 4:54 PM IT RECRUITER) Anatomical Region Laterality Modality Chest Computed Radiogr aphy 07/07/2019 4:55 PM IT RECRUITER Impressions 07/08/2019 11:32 PM IT RECRUITER IMPRESSION: Please see below. Exam: XR CHEST [...] interstitial disease. No acute abnormality. Marguerite Wade LEAD PASTOR DIAGNOSTIC IMAGING ORDERABL ES Final Result documented in this encounter Visit Diagnoses Diagnosis Breath shortness Shortness of breath Breath shortness Shortness of breath documented in this encounter Care Teams Radiographer Technologist Relationship Specialty Start Date End Date Non-Staff, Physician NO ADDRESS ON FILE PCP - General 12/15/19 documented as of this encounter
--- OUTSIDE RECORDS SUMMARY | 2025-01-25 16:35 | XMS_ITS | Encounter Summary ---
Author Organization [facility] Address [address] [place] [address] Care Team Providers Care Procurement Cost Coordinator Name Role Phone Non-Staff, Physician Primary Care Provider Unava ilable Encounter Details Date Type Department Care Team (Latest Contact Info) Description 11/16/2003 Outpatient Historical [facility] Medicine [place] [address] [facility] [place] [address] [place] [address] Marguerite Wade, KITCHEN DESIGNER [address] [place] [address] ACUTE URI NOS (Primary Dx); GONZALEZ'S PALSY Social History Tobacco Use Types Packs/Day Years Used Date Smoking Tobacco: Never Assessed Comments Unknown Sex and Gender Information Value Date Recorded Sex Assigned at Not on file Legal Sex Female 2:51 AM CARE NAVIGATOR Gender Identity Not on file Sexual Orientation Not on file documented as of this encounter Plan of Treatment Not on file documented as of this encounter Visit Diagnoses Diagnosis Acute upper respiratory infections of unspecified site- Primary Gonzalez's palsy documented in this encounter Care Teams Procurement Cost Coordinator Relationship Specialty Start Date End Date Non-Staff, Physician NO ADDRESS ON FILE PCP - General 12/15/19 documented as of this encounter
--- OUTSIDE RECORDS SUMMARY | 2025-01-25 16:35 | XMS_ITS | Encounter Summary ---
Author Organization [facility], [facility] Address [address] [place] [address] Phone Care Team Providers Care Java Manager Name Role Phone Marguerite Wade LILLIE Primary Care Provider [phone] Encounter Details Date Type Department Care Team (Late st Contact Info) Description 11/19/2019 Orders Only [facility], [facility] [address] [place] [address] Mendez Reyes MD [address] [place] [address] Chronic kidney disease stage 2 Social History Tobacco Use Types Packs/Day Years [...] Procedure Name Priority Date/Time Associated Diagnosis Comments URINE ALBUMIN / CREATININE RATIO Routine 01/11/2020 9:29 AM CDT Chronic kidney disease stage 2 RENAL FUNCTION PANEL Routine 01/11/2020 9:29 AM CDT Chronic kidney disease stage 2 documented in this encounter Results * Urine albumin / creatinine ratio (01/11/2020 9:29 AM CDT) Creatinine, Urine Random 22.8 mg/dL [facility] Microalbumin 10.3 [facility] Microalbumin/Crea tinine Ratio 451.8 [facility] Urine specimen (specimen) 01/11/2020 9:29 AM CDT Narrative [facility] - 01/12/2020 9:10 AM CDT [facility] [place] # [id number] [address] [place], [place] [address] DIRECTOR: ANAID BAHENA MD [facility] [phone] Mendez Reyes MD LAB URINE ORDERABLES Fi nal Result Performing Organization Address [facility] de Phone Number [facility] * Renal function panel (01/11/2020 9:29 AM CDT) Glucose 272 mg/dL [facility] BUN 14 mg/dL [facility] Creatinine 0.65 mg/dL [facility] Sodium 133 mEq/L [facility] Potassium 4.4 mEq/L [facility] Chloride 96 [facility] Carbon Dioxide 26 mmol/L [facility] Calcium 9.4 mg/dL [facility] Phosphorus, Serum 3.2 mg/dL [facility] Albumin (Blood) 3.9 g/dL [facility] eGFR Non-Afr [facility] [place] >60 [facility] eGFR >60 [facility] Blood specimen (specimen) 01/11/2020 9:29 AM CDT Narrative [facility] - 01/12/2020 9:09 AM CDT [facility] [employer] [facility] [place] # [id number] [address] [place] [address] DIRECTOR: ANAID BAHENA MD [facility] [phone] Mendez Reyes MD LAB BLOOD ORDERABLES Fi nal Result Performing Organization Address [facility] de Phone Number [facility] documented in this encounter Visit Diagnoses Diagnosis Chronic kidney disease stage 2 documented in this encounter Care Teams Java Manager Relationship Specialty Start Date End Date Marguerite Wade FNP [address] [place] [address] PCP - General Internal Medicine 07/16/18 documented as of this encounter
--- OUTSIDE RECORDS SUMMARY | 2025-01-25 16:35 | XMS_ITS | Encounter Summary ---
Author Organization [facility], [facility] Address [address] [place] [address] Phone Care Team Providers Care Switch Adjuster Name Role Phone Marguerite Wade Primary Care Provider [phone] Encounter Details Date Type Department Care Team (Late st Contact Info) Description 11/15/2018 Orders Only [facility] [address] [place] [address] Mendez Reyes MD [address] [place] [address] Persistent proteinuria Social History Tobacco [...] as of this encounter Visit Diagnoses Diagnosis Persistent proteinuria documented in this encounter Care Teams Switch Adjuster Relationship Specialty Start Date End Date Marguerite Wade FNP [address] [place] [address] PCP - General Internal Medicine 07/16/18 documented as of this encounter
--- OUTSIDE RECORDS SUMMARY | 2025-01-25 16:35 | XMS_ITS | Encounter Summary ---
Author Organization [employer] Address [address] [place] [address] Care Team Providers Care Tank Tester Name Role Phone Non-Staff, Physician Primary Care Provider Unava ilable Encounter Details Date Type Department Care Team (Late st Contact Info) Description 08/08/2020 Ancillary Orders [facility] [address] [place] [address] Marguerite Wade, VACUUM METALIZING SUPERVISOR [address] [place] [phone] Low back pain, unspecified back pain laterality, [...] on file Legal Sex Female 2:51 AM EXECUTOR OF ESTATE Gender Identity Not on file Sexual Orientation [...] spine, greatest at L5-S1. No acute pathology. [id number] Narrative Procedure Note Hiro Jain MD - [...] spine, greatest at L5-S1. No acute pathology. [id number] Marguerite Wade VACUUM METALIZING SUPERVISOR DIAGNOSTIC IMAGING ORDERABL ES Final Result documented in this encounter Visit Diagnoses Diagnosis Low back pain, unspecified back pain laterality, unspecified chronicity, unspecified whether sciatica present Low back pain, unspecified back pain laterality, unspecified chronicity, unspecified whether sciatica present documented in this encounter Care Teams Tank Tester Relationship Specialty Start Date End Date Non-Staff, Physician NO ADDRESS ON FILE PCP - General 12/15/19 documented as of this encounter
--- OUTSIDE RECORDS SUMMARY | 2025-01-25 16:35 | XMS_ITS | Encounter Summary ---
Author Organization [facility] Address [address] [place] [address] Care Team Providers Care Educational Audiologist Name Role Phone Non-Staff, Physician Primary Care Provider Unava ilable Encounter Details Date Type Department Care Team (Latest Contact Info) Description 11/24/2003 Outpatient Historical [facility] [address] [place] [address] Marguerite Wade, EMERGENCY MANAGEMENT COORDINATOR [address] [place] [phone] ACUTE BRONCHITIS (Primary Dx) Social History Tobacco Use Types Packs/Day Years Used Date Smoking Tobacco: Never Assessed Comments Unknown Sex and Gender Information Value Date Recorded Sex Assigned at Not on file Legal 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
--- OUTSIDE RECORDS SUMMARY | 2025-01-25 16:35 | XMS_ITS | Encounter Summary ---
Author Organization [facility] Address [address] [place] [address] Care Team Providers Care Special Effects Makeup Artist Name Role Phone Non-Staff, Physician Primary Care Provider Unava ilable Encounter Details Date Type Department Care Team (Latest Contact Info) Description 12/09/2006 Outpatient Historical [facility] [place] [address] [place] [phone] Brian Lewis NP NO ADDRESS ON FILE Acute Bronchitis (Primary Dx); Unspecified Asthma; Acute Pharyngitis Social History Tobacco Use Types Packs/Day Years Used Date Smoking Tobacco: Never Assessed Comments Unknown Sex and Gender Information Value Date Recorded Sex Assigned at Not on file 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
--- OUTSIDE RECORDS SUMMARY | 2025-01-25 16:35 | XMS_ITS | Clinical Summary ---
Author Organization [facility] Address [address] [place] [address] Care Team Providers Care Wellness Consultant Name Role Phone Non-Staff, Physician Primary Care [...] , without long-term current use of insulin (CMS/[facility]) Take BS daily before brekfast. 100 Strip [...] DAILY.. 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 Gender Identity Not on file Sexual [...] 01/10/2021 01/11/2020, 07/03/2018, 03/05/2018, Additional history exists COLORECTAL SCREENING 08/03/2024 08/03/2014 Colorectal Cancer Screening 08/03/2024 INFLUENZA VACCINE (#1) 2024 03/11/2018 Medical Devices Implanted Type Area [place] Machine Operator Device Identifier Shelf Expiration Date Model / Serial / Lot Mesh Marlex Sheet [id number] - [id number] Implanted:Qty: 1 on 07/15/2015 by Doc Bolton MD at [facility] Mesh N/A: Abdomen CR [employer] 08/11/2015 [id number] / / [id number] Procedures Procedure Name Priority Date/Time Associated Diagnosis [...] cancer LIPID PANEL Routine 07/03/2018 11:24 AM CLAY MINE CUTTING MACHINE OPERATOR Uncontrolled type 2 diabetes mellitus with hypoglycemia without coma (CMS/HCC) ENDOSCOPY, COLON, SCREENING Routine 08/03/2014 from Last 3 Months or Most Recently Relevant to Health Maintenance Results * (ABNORMAL) HEMOGLOBIN A1C (01/12/2020 9:19 AM CDT) HEMOGLOBIN A1C 8.7(H) <=5.6 % 01/12/2020 5:01 PM CDT [facility] EST. AVG GLUCOSE, A1C 203 mg/dL 01/12/2020 5:01 PM CDT [facility] Blood Venipuncture / Unknown 01/12/2020 9:19 AM CDT 01/12/2020 2:38 PM CDT [facility] - 01/12/2020 5:01 PM CDT HGB A1C INTERPRETATION NORMAL: <5.7% PRE-DIABETES: 5.7 - 6.4% DIABETES: 6.5% OR GREATER us Marguerite MOREIRA CHEMISTRY ORDERABLES Final Result Performing Organization Address [facility] de Phone Number [facility] [id number] [address] [place] [id number] * (ABNORMAL) MICROALBUMIN/CREATININE RATIO, RANDOM UR (01/11/2020 9:29 AM CDT) MICROALBUMIN, URINE 10.3 No Reference Range mg/dL 01/11/2020 10:30 AM T [facility] CREATININE, URINE 22.8(L) 29.0 - 226.0 mg/dL 01/11/2020 10:30 AM [facility] Comment:Reference Range vari es with fluid intake and diet. MICROALBUMIN/ CREAT RATIO, UR 451.8(H) <25.0 mg/g 01/11/2020 10:30 AM [facility] Urine URINE SPECIMEN OBTAINED BY CLEAN CATCH PROCEDURE / Unknown Collection / Unknown 01/11/2020 9:29 AM CDT 01/11/2020 9:29 AM CDT [facility] - 01/11/2020 10:30 AM CDT Condition Microalbumin/Creat ratio Normal Males <17 Normal Females <25 Microalbuminuria Males 17-299 Microalbuminuria Females 25-299 Overt proteinuria >=300 us Mendez Reyes MD URINE ORDERABLES Final Resul t Performing Organization Address [facility] Co de Phone Number [facility] CLIA # [id number] [address] [place] [id number] * MAMMO SCREEN BILAT W OR WO CAD (12/17/2018 1:44 PM CDT) Anatomical Region Laterality Modality Breast Bilateral Mammography 12/17/2018 1:53 PM CDT Impressions 12/18/2018 9:58 AM CDT : Superficial mass inferior medially, anteriorly, on the left, will require additional evaluation. Patient will be contacted by the [facility] to schedule the recommended follow-up appointment. [id number] Narrative 12/18/2018 9:58 AM CDT Bilateral Digital [...] by the Computer Aided Detection System (CAD), [employer] ImageChecker, Version 8.3. us Shaun Briones MD MAMMO ORDERABLES Final Re sult * (ABNORMAL) LIPID PANEL (07/03/2018 11:24 AM CLAY MINE CUTTING MACHINE OPERATOR) CHOLESTEROL 156 <200 mg/dL 07/03/2018 12:29 PM [facility] TRIGLYCERIDE 156(H) <150 mg/dL 07/03/2018 12:29 PM [facility] HDL 41 40 - 59 mg/dL 07/03/2018 12:29 PM [facility] LDL CALCULATED 84 <100 mg/dL 07/03/2018 12:29 PM [facility] NON-HDL CHOLESTEROL 115 <130 mg/dL 07/03/2018 12:29 PM [facility] Blood Venipuncture / Unknown 07/03/2018 11:24 AM CLAY MINE CUTTING MACHINE OPERATOR 07/03/2018 11:24 AM [facility] - 07/03/2018 12:29 PM CLAY MINE CUTTING MACHINE OPERATOR TOTAL CHOLESTEROL mg/dL Desirable <200 Borderline high [...] Ranges for Lipid Panels (NCEP/AMA) Marguerite Wade COOKER PIE FILLING CHEMISTRY ORDERABLES Final Result [facility] [id number] [address] [place] [address] * ENDOSCOPY, COLON, SCREENING (08/03/2014) Marguerite Vanegas [place] COOKER PIE FILLING GI PROCEDURE ORDERABLES Fin al Result from Last 3 Months or Most Recently Relevant to Health Maintenance Insurance [place] [address] [address] DUAL COMPLETE [facility] HMO [facility] * Guarantor: [id number] Account Type Relation to Patient Date of Phone Billing Address Workers Comp Employer [employer] [address] [place] [address] WORKERS COMP Advance Directives For more information, please contact: [phone] * Full Code (Latest Code Status on File) Date Activated Date Inactivated Comments 12/09/2018 7:32 AM 12/09/2018 1:04 PM * Full Code Date Activated Date Inactivated Comments 05/28/2017 4:05 PM 05/30/2017 1:59 PM Care Teams Wellness Consultant Relationship Specialty Start Date End Date Non-Staff, Physician NO ADDRESS ON FILE PCP - General 12/15/19
--- OUTSIDE RECORDS SUMMARY | 2025-01-25 16:35 | XMS_ITS | Clinical Summary ---
Author Organization [facility] Address [address] [place] [id number] Care Team Providers Care Die Engraving Supervisor Name Role Phone Unavailable Primary Care Provider Unavailabl e Allergies Active Allergy Reactions Criticality Noted Date Comments Alpha-Gal (Sbcisdbdw-Ofxgc-7,3-G alactose) Nausea and Vomiting Low 11/11/2024 Quinine Other (See Comments) 02/02/2023 Lowered platelet - petechiae Ropinirole Unknown 12/17/2022 Doesn't remember Medications Insulin [place], Disposable, 31 gauge x 5/16 Needle Use daily.dx:e11.0. 100 Each 2 018 Active lancets (OneTouch Delica Plus Lancet) 33 gauge TEST BLOOD SUGAR ONCE DAILY BEFORE BREAKFAST. MAKE APPOINTMENT WITH PRIMARY DOCTOR PRIOR TO NEXT REFILL. 100 Each 1 020 Active ipratropium-alb uteroL (COMBIVENT RESPIMAT) 20-100 mcg/actuation Mist INHALE 1 PUFF BY MOUTH EVERY 6 HOURS 12 Gram 2 020 Active Additional Information Patient taking differently: 1 Puff Inhalation EVERY 6 HOURS PRN, Reported on 01/05/2025 blood sugar diagnostic StripIndication s:Type 2 diabetes mellitus with microalbuminuri a, without long-term current use of insulin ([facility]) Daily before breakfast. 100 Strip 2 018 Active albuterol HFA 90 mcg inhaler INHALE 1 PUFF BY MOUTH EVERY 4 HOURS NEEDED FOR SHORTNESS OF BREATH.. 6.7 Gram 2 018 Active Additional Information Patient taking differently: 2 Puff Inhalation EVERY 8 HOURS PRN, Reported on 01/05/2025 Blood-Glucose Meter KitIndications: Type 2 diabetes mellitus with microalbuminuri a, without long-term current use of insulin ([facility]) Test daily before breakfast. 1 Kit 0 018 Active buPROPion HCL (WELLBUTRIN XL) 300 mg Extended Release 24 hour tablet Take 300 mg by mouth daily in the morning. Active budesonide-form oteroL (SYMBICORT) 160-4.5 mcg/actuation HFA Aerosol Inhaler Take 2 Puffs by inhalation 2 times daily. Active rivaroxaban (Xarelto) 20 mg Tablet Take 20 mg by mouth daily with supper. Active FUROSEMIDE ORAL Take 40 mg by mouth 2 times daily. Active sertraline HCl (SERTRALINE ORAL) Take 200 mg by mouth daily. Active modafiniL (PROVIGIL) [...] Rapid Dissolve Take 0.5 mg by mouth 2 times daily as needed for Anxiety. 023 Active hydroxychloroqu ine (PLAQUENIL) 200 mg tablet Take 200 mg by mouth 2 times daily. Active pilocarpine (SALAGEN) 5 mg Tablet Take 5 mg by mouth 3 times daily. Active acetaminophen (TYLENOL) 325 mg tablet Take 325 mg by mouth every 6 hours as needed for Pain. Active albuterol (PROVENTIL,VENT ELE) 2.5 mg /3 mL (0.083 %) Solution for Nebulization Take 2.5 mg by inhalation every 6 hours as needed for Shortness of Breath. Active cholecalciferol 1,250 mcg (50,000 unit) Capsule Take 50,000 Units by mouth every 7 days. Active nitroglycerin (NITROSTAT) 0.4 mg Tablet, Sublingual Place 0.4 mg under tongue every 5 minutes as needed for Chest Pain. Active umeclidinium (INCRUSE ELLIPTA) 62.5 mcg/actuation Disk with Device Take 1 Puff by inhalation daily. Active inhalational spacing device (Microchamber) Spacer Use with Symbicort/Albut yumiko 1 Each 4 Active CPAP / BIPAP supplies Resmed VPAP-S IPAP=12cwp, EPAP=8cwp, Timin=0.4s, Timax=1.2s, trigger=low, cycle=high with 3L oxygen supplement,Taya th of need: 99 months Mask Type: per [...] Please link efficiency data download to Dr. Hien garcia. Diagnosis: G47.33 1 Each Active lactulose (ENULOSE) 10 gram/15 mL oral solution Take 45 mL by mouth 3 times daily as needed for Constipation. 237 mL Active Additional Information Patient taking differently:30 Gram OralTHREE TIMES DAILY, Reported on 01/05/2025 QUEtiapine (SEROquel) 50 mg tablet Take 50 mg by mouth daily at bedtime. Active FreeStyle Jack 3 Plus Sensor Device CHANGE EVERY 15 DAYS Active FreeStyle Jack 3 [place] use as directed Active flecainide (TAMBOCOR) 100 mg tablet Take 1 Tablet (100 mg) by mouth every 12 hours. 60 Tablet 3 5 3:59 PM CDT Active insulin glargine (LANTUS) 100 unit/mL pen syringeIndicati ons:Uncontrolle d type 2 diabetes mellitus with hypoglycemia without coma ([facility]) Inject 55 Units by subcutaneous injection daily with breakfast. Please follow-up closely with PCP for further dose adjustments 15 mL 025 Active Additional Information Patient taking differently: 65 UnitssubCUT DAILY WITH BREAKFAST, Please follow-up closely with PCP for further dose adjustments, Reported on 01/05/2025 diphenhydrAMINE (BENADRYL) 25 mg tablet Take 25 mg by mouth every 8 hours as needed for Allergies. Active ensifentrine 3 mg/2.5 mL Suspension for Nebulization Take 3 mg by inhalation 2 times daily. Active fluticasone propionate (FLONASE) 50 mcg/spray [place]vin, Suspension nasal inhaler Administer 2 Sprays in each nostril 1 time daily as needed for Rhinitis. Active ibuprofen (MOTRIN) 200 mg tablet Take 200 mg by mouth every 6 hours as needed for Pain, Mild. Active isosorbide mononitrate (IMDUR) 30 mg Extended Release 24 hour tablet Take 30 mg by mouth daily in the morning. Active predniSONE (DELTASONE) 5 mg tablet Take 5 mg by mouth daily with breakfast. Active oxygen home deliveryIndicat ions:Nocturnal hypoxia Home Oxygen Concentrator yes at 0 L/M Rest, 0 L/M Activity, 4 L/M Sleep, Delivery Device: Nasal Cannula Portability: no, 0 L/M Rest, 0 L/M Activity, May provide device best for patient needs(E system,home fill, conserving device) Length of Need: 99 months 1 Each 025 Active overnight pulse oximetryIndicat ions:Moderate COPD (chronic obstructive pulmonary disease) (CMS/HCC),Noctu rnal hypoxia Patient needs 4 L O2 with sleep 1 Each 025 Active oxygen home deliveryIndicat ions:Nocturnal hypoxia Home Oxygen Concentrator yes at 0 L/M Rest, 0 L/M Activity, 2 L/M Sleep, Delivery Device: Nasal CannulaPortabil ity: no, 0 L/M Rest, 0 L/M Activity, May provide device best for patient needs(E system,home fill, conserving device)Length of Need: 99 months. 1 Each 0 019 2024 Discontinued(R eorder) overnight pulse oximetry Overnight pulse oximetry: One time overnight pulse oximetry test on room air or oxygen liter flow: 2 L/min. 1 Each 025 2024 Discontinued overnight pulse oximetryIndicat ions:Moderate COPD (chronic obstructive pulmonary disease) (CMS/HCC),Noctu rnal hypoxia Overnight pulse oximetry: One time overnight pulse oximetry test on room air or oxygen liter flow: 2 L/min. 1 Each 025 2024 Discontinued(R eorder) amoxicillin-cla vulanate (AUGMENTIN) 875-125 mg tablet Take 1 Tablet by mouth every 12 hours for 7 days. 14 Tablet 025 2024 guaiFENesin (MUCINEX) 600 mg Extended Release Biphasic tablet Take 1 Tablet (600 mg) by mouth 2 times daily for 5 days. 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 Benign [...] 02/02/2023 Pneumonia due to gram-positive bacteria 11/18/19 21 Acute on chronic hypoxic respiratory failure 11/2020 Paroxysmal atrial fibrillation 11/15/2020 Hypoxemia 11/14/2020 Recurrent pneumothorax 11/14/2020 Chest pain 11/14/2020 Dyspnea 11/14/2020 COPD exacerbation 11/13/2020 Primary spontaneous pneumothorax 11/13/2020 Mass of [...] Encounters Date Type Department Care Team Description 01/14/2025 Orders Only [facility] [address] [place] [address] Mayra Lopez Moderate COPD (chronic obstructive pulmonary disease) ([facility]); Nocturnal hypoxia 01/14/2025 Orders Only [facility] [address] [place] [address] Mayra Lopez Moderate COPD (chronic obstructive pulmonary disease) ([facility]/HCC); Nocturnal hypoxia 01/14/2025 Results Follow-Up [facility] [address] [place] [address] Shannon Anglin NP PULSE OXIMETRY, OVERNIGHT 01/13/2025 Orders Only [facility] [address] [place] [address] Shannon Anglin NP 01/05/2025 3:47 PM CDT - 01/05/2025 7:11 PM CDT Emergency [facility] Emergency Medicine [address] [facility] [address] [place] [phone] Magdiel Alcantar MD COPD with exacerbation ([facility]) (Primary Dx) Discharge Disposition: Home or Self Care 12/31/2024 Chart Note [facility] [address] [place] [address] Shannon Anglin NP 12/31/2024 Orders Only [facility] [address] [place] [address] Mayra Lopez Moderate COPD (chronic obstructive pulmonary disease) ([facility]/HCC) (Primary Dx); Nocturnal hypoxia 12/11/2024 Abstract [facility] [address] [place] [address] Provider, Abstract 12/01/2024 11:00 AM CDT Telemed [facility] [employer] [address] [facility] [address] [place] [address] Shannon Anglin NP Moderate COPD (chronic obstructive pulmonary disease) ([facility]/HCC) (Primary Dx); Tobacco abuse; JOSE MARIA (obstructive sleep apnea); Nocturnal hypoxia; History of pneumothorax; Personal history of nicotine dependence 11/30/2024 Telephone [facility] [address] [place] [address] Elisha Stanford MD Information 11/27/2024 11:15 AM CDT Telemed [facility] [employer] [address] [place] [address] Elisha Stanford MD JOSE MARIA (obstructive sleep apnea) (Primary Dx); History of pneumothorax 11/26/2024 2:30 PM CDT Office Visit [facility] [address] [address] Willie Us MD S/P video-assisted thoracoscopic surgery (VATS) (Primary Dx) 11/26/2024 1:08 PM CDT - 11/26/2024 11:59 PM CDT Hospital Encounter [facility] [address] [place] [address] Ellie Han MD Discharge Disposition: Home or Self Care 11/24/2024 Orders Only [place] [id number] [address] Sonia Shen MD Paroxysmal atrial fibrillation (CMS/HCC) (Primary Dx); Atherosclerosis 11/20/2024 Abstract [facility] [place] [phone] Salvatore Oakley MD 11/16/[address] [address] Lenard Rubi Appointment Notification 11/09/2024 7:15 AM CDT Anesthesia Event [facility] [address] [place] [address] Evan Richardson MD Elliott, James M, CRNA 11/09/2024 7:00 AM CDT - 11/09/2024 10:52 AM CDT Surgery [facility] [address] [place] [address] Sonia Shen MD LUNG WEDGE RESECTION 11/07/2024 Travel 11/06/2024 10:32 PM CDT - 11/13/2024 4:00 PM CDT Hospital Encounter [facility] 4D Surgery Heart Lung [address] [place] [address] Gin Richard MD Melton, Gregory A, DO Haq, Jeesanul, MD Primary spontaneous pneumothorax Discharge Disposition: Home Health Care Svc from Last 3 Months Immunizations Immunization Administration [...] on file Legal Sex Female 8:11 AM NIKE A[employer] Gender Identity Not on file Sexual Orientation Not on file Last Filed Vital Signs Vital Sign Reading Time Taken Comments Blood Pressure 204/94 01/05/2025 7:[address] Alcantar notified of patient's blood pressure. No new orders at this time. Pulse 62 01/05/2025 7:00 PM CDT Temperature 35.8 C (96.5 F) 01/05/2025 3:49 PM CDT Respiratory Rate 20 01/05/2025 7:00 PM CDT Oxygen Saturation 93% 01/05/2025 7:0 0 PM CDT Inhaled Oxygen Concentration - - Weight 115.1 kg (253 lb 12.8 oz) 01/05/2025 3:49 PM CDT Height 182.9 cm (6') 01/05/2025 3:49 PM CDT Body Mass Index 34.42 01/05/2025 3:49 PM CDT Plan of Treatment Upcoming Encounters Date Type Department Care Team (Late st Contact Info) Description 02/16/2025 11:30 AM CDT [facility] [facility] [address] [place] [address] Shannon Anglin NP [address] [place] [address] 03/12/2025 11:30 AM CDT [facility] [address] [place] [address] Elisha Stanford MD [address] [phone] Health Maintenance Due Date Last Done Comments [...] series) 08/16/2021 07/19/2021, 06/21/2021 INFLUENZA VACCINE (#1) 2024 03/11/2018 LDL CHOLESTEROL ANNUAL 04/21/2025 , 12/05/2023, 11/15/2020, Additional history exists DIABETES HBA1C Q 6 MONTHS 05/08/20252024, 04/20/2024, 12/05/2023, Additional history exists COLORECTAL SCREENING 12/09/2028 12/09/2018, 08/03/2014, 08/03/2014 Colorectal Cancer Screening 12/09/2028 DTAP/TDAP/TD VACCINES (2 - T d or Tdap) 09/10/2032 09/10/2022 Medical Devices Implanted Type Area Humidifier Attendant Device Identifier Shelf Expiration Date Model / Serial / Lot Mesh Marlex Sheet [id number] - [id number] Implanted:Qty: 1 on 07/15/2015 by Doc Bolton MD Mesh N/A: Abdomen CR [employer] 08/11/2015 [id number] / / [id number] Stent Contour 6of50am [id number] - [id number] Implanted:Qty: 1 on 09/11/2024 by Ramirez Damian MD at [facility] Stent Right: Ureter [employer]ER OPERATOR [id number] 04/28/2027 [id number] / / [id number] Procedures Procedure Name Priority Date/Time Associated Diagnosis Comments PULSE OXIMETRY, OVERNIGHT Routine 01/07/2025 1:41 PM CDT PULSE OXIMETRY, OVERNIGHT Routine 01/07/2025 1:40 PM CDT TELEMETRY REPORT 01/06/2025 8:28 AM CDT TROPONIN 2 HR, 5TH GEN Timed Study 01/05/2025 6:03 PM CDT CTA CHEST ABD PELVIS W WO CONTRAST Stat 01/05/2025 5:25 PM CDT XR CHEST PA OR AP 1 VW Stat 01/05/2025 4:06 PM CDT TROPONIN BASELINE, 5TH GEN Stat 01/05/2025 3:53 PM CDT MAGNESIUM LEVEL Stat 01/05/2025 3:53 PM CDT C-REACTIVE PROTEIN Stat 01/05/2025 3: 53 PM CDT LACTIC ACID Stat 01/05/2025 3:53 PM CDT TSH Stat 01/05/2025 3:53 PM CDT BRAIN NATRIURETIC PEPTIDE, BNP OR PROBNP Stat 01/05/2025 3:53 PM CDT LIPASE Stat 01/05/2025 3:53 PM CDT COMPREHENSIVE METABOLIC PANEL Stat 01/05/2025 3:53 PM CDT SEDIMENTATION RATE Stat 01/05/2025 3: 53 PM CDT D-DIMER Stat 01/05/2025 3:53 PM CDT PTT Stat 01/05/2025 3:53 PM CDT PROTIME-INR Stat 01/05/2025 3:53 PM CDT CBC WITH DIFFERENTIAL Stat 01/05/2025 3:53 PM CDT URINALYSIS W/REFLEX MICROSCOPIC Stat 01/05/2025 3:49 PM CDT XR CHEST PA AND LATERAL 2 VW Routine 11/26/2024 1:40 PM CDT Pneumonia due to infectious organism, unspecified laterality, unspecified part of lung TELEMETRY REPORT 11/14/2024 2:21 AM CDT POC GLUCOSE Routine 11/13/2024 12:05 PM CDT RESPIRATORY PATHOGEN PCR PANEL Routine 11/13/2024 10:22 AM CDT PROCALCITONIN Routine 11/13/2024 9:27 AM CDT POC GLUCOSE Routine 11/13/2024 7:37 AM CDT EKG 12-LEAD Pending Discharge 11/13/2024 6:17 AM CDT BASIC METABOLIC PANEL Routine 11/13/2024 4:55 AM CDT CBC WITH DIFFERENTIAL Routine 11/13/2024 4:55 AM CDT XR CHEST PA OR AP 1 VW Pending Discharge 11/13/2024 4:36 AM CDT POC GLUCOSE Routine 11/12/2024 10:17 PM CDT CTA CHEST W AND/OR WO CONTRAST Pending Discharge 11/12/2024 6:32 PM CDT POC GLUCOSE Routine 11/12/2024 5:27 PM CDT EKG 12-LEAD Pending Discharge 11/12/2024 3:41 PM CDT TROPONIN 6 HR, 5TH GEN Timed Study 11/12/2024 3:33 PM CDT POC GLUCOSE Routine 11/12/2024 12:06 PM CDT TROPONIN 2 HR, 5TH GEN Timed Study 11/12/2024 11:13 AM CDT D-DIMER Stat 11/12/2024 9:49 AM CDT TROPONIN BASELINE, 5TH GEN Stat 11/12/2024 9:27 AM CDT POC GLUCOSE Routine 11/12/2024 7:44 AM CDT T4 FREE Routine 11/12/2024 5:10 AM CDT TSH Routine 11/12/2024 5:10 AM CDT MAGNESIUM LEVEL Routine 11/12/2024 5:10 AM CDT BASIC METABOLIC PANEL Routine 11/12/2024 5:10 AM CDT CBC WITH DIFFERENTIAL Routine 11/12/2024 5:09 AM CDT XR CHEST PA OR AP 1 VW Routine 11/12/2024 4:46 AM CDT EKG 12-LEAD Stat 11/12/2024 1:35 AM CDT POC GLUCOSE Routine 11/11/2024 9:13 PM CDT POC GLUCOSE Routine 11/11/2024 5:37 PM CDT POC GLUCOSE Routine 11/11/2024 11:43 AM CDT POC GLUCOSE Routine 11/11/2024 9:16 AM CDT XR CHEST PA OR AP 1 VW Routine 11/11/2024 4:20 AM CDT BASIC METABOLIC PANEL Routine 11/11/2024 3:55 AM CDT CBC WITH DIFFERENTIAL Routine 11/11/2024 3:55 AM CDT POC GLUCOSE Routine 11/10/2024 8:09 PM CDT POC GLUCOSE Routine 11/10/2024 4:17 PM CDT POC GLUCOSE Routine 11/10/2024 11:16 AM CDT XR CHEST PA OR AP 1 VW Routine 11/10/2024 4:45 AM CDT BASIC METABOLIC PANEL Routine 11/10/2024 1:48 AM CDT CBC WITH DIFFERENTIAL Routine 11/10/2024 1:48 AM CDT POC GLUCOSE Routine 11/09/2024 8:12 PM CDT POC GLUCOSE Routine 11/09/2024 5:39 PM CDT OT EVAL AND TREAT Routine 11/09/2024 2:3 0 PM CDT POC GLUCOSE Routine 11/09/2024 11:43 AM CDT RT ASSESS AND TREAT Routine 11/09/2024 11:05 AM CDT XR CHEST PA OR AP 1 VW Stat 11/09/2024 11:00 AM CDT POC GLUCOSE Routine 11/09/2024 10:35 AM CDT PATHOLOGY Pathology 11/09/2024 9:12 AM CDT Pneumothorax CO ANES INSERT CATH, ART, PERCUT, SHORTTERM Routine 11/09/2024 8:08 AM CDT CO ANES INSERT ENDOTRACHEAL AIRWAY Routine 11/09/2024 7:45 AM CDT CO THORSC DX LUNGS/PERICAR/MED/PLE URAL SPACE W/O BX 11/09/2024 7:00 AM CDT PLEURODESIS THORACOSCOPIC 11/09/2024 7:00 AM CDT LUNG WEDGE RESECTION 11/09/2024 7:00 AM CDT TYPE AND SCREEN Stat 11/09/2024 6:30 AM CDT PREPARE RED BLOOD CELLS Routine 11/09/2024 6:09 AM CDT PREPARE RED BLOOD CELLS Stat 11/09/2024 6:09 AM CDT COMPREHENSIVE METABOLIC PANEL Routine 11/09/2024 5:06 AM CDT CBC WITH DIFFERENTIAL Routine 11/09/2024 5:06 AM CDT XR CHEST PA OR AP 1 VW Routine 11/09/2024 4:32 AM CDT POC GLUCOSE Routine 11/08/2024 10:11 PM CDT POC GLUCOSE Routine 11/08/2024 5:36 PM CDT XR CHEST PA OR AP 1 VW Timed Study 11/08/2024 1:04 PM CDT POC GLUCOSE Routine 11/08/2024 11:56 AM CDT POC GLUCOSE Routine 11/08/2024 8:57 AM CDT BASIC METABOLIC PANEL Routine 11/08/2024 8:40 AM CDT CBC WITH DIFFERENTIAL Routine 11/08/2024 8:39 AM CDT XR CHEST PA OR AP 1 VW Routine 11/08/2024 4:37 AM CDT POC GLUCOSE Routine 11/07/2024 8:46 PM CDT XR CHEST PA OR AP 1 VW Timed Study 11/07/2024 8:24 PM CDT POC GLUCOSE Routine 11/07/2024 5:[address] CHEST WO CONTRAST Stat 11/07/2024 4:[address] HEAD WO CONTRAST Routine 11/07/2024 4 :37 PM CDT PNEUMONIA PATHOGEN PCR PANEL Routine 11/07/2024 3:01 PM CDT SPUTUM CULTURE WITH GRAM STAIN Routine 11/07/2024 3:01 PM CDT XR CHEST PA OR AP 1 VW Routine 11/07/2024 2:27 PM CDT ECHOCARDIOGRAM W/ CONTRAST AGENT Stat 11/07/2024 1:00 PM CDT EXTRA TUBE (URINE ANGUIANO) Routine 11/07/2024 12:59 PM CDT URINALYSIS W/REFLEX MICROSCOPIC Routine 11/07/2024 12:59 PM CDT POC GLUCOSE Routine 11/07/2024 12:54 PM CDT AMMONIA LEVEL Routine 11/07/2024 9:38 AM CDT POC LACTIC ACID Routine 11/07/2024 8:56 AM CDT BLOOD GAS ARTERIAL Stat 11/07/2024 8: 56 AM CDT PROCALCITONIN Routine 11/07/2024 8:49 AM CDT POC GLUCOSE Routine 11/07/2024 7:16 AM CDT CBC WITH DIFFERENTIAL Routine 11/07/2024 5:31 AM CDT COMPREHENSIVE METABOLIC PANEL Routine 11/07/2024 5:31 AM CDT MAGNESIUM LEVEL Routine 11/07/2024 5:31 AM CDT PHOSPHORUS Routine 11/07/2024 5:31 AM CDT RESPIRATORY PATHOGEN PCR PANEL Stat 11/07/2024 1:16 AM CDT HEMOGLOBIN A1C Routine 11/06/2024 11:25 PM CDT XR CHEST PA OR AP 1 VW Stat 11/06/2024 11:14 PM CDT POC GLUCOSE Routine 11/06/2024 11:11 PM CDT COPD EDUCATION RT Routine 11/06/2024 10:49 PM CDT RT ASSESS AND TREAT Routine 11/06/2024 10:43 PM CDT LIPID PANEL Routine 04/21/2024 4:07 AM NIKE ATHLETE MICROALBUMIN/CREATINI NE RATIO, RANDOM UR Routine 01/11/2020 9:29 AM CDT MAMMO SCREEN BILAT W OR WO CAD Routine 12/17/2018 1:44 PM CDT Encounter for screening mammogram for malignant neoplasm of breast ENDOSCOPY, COLON, SCREENING 08/03/2014 12:00 AM CDT from Last 3 Months or Most Recently Relevant to Health Maintenance Results * PULSE OXIMETRY, OVERNIGHT (01/07/2025 1:41 PM CDT) Shannon Anglin PHARMACEUTICAL SERVICE REPRESENTATIVE RESPIRATORY CARE ORDERABLES Fin al Result * PULSE OXIMETRY, OVERNIGHT (01/07/2025 1:40 PM CDT) Shannon Anglin PHARMACEUTICAL SERVICE REPRESENTATIVE RESPIRATORY CARE ORDERABLES Fin al Result * TELEMETRY REPORT (01/06/2025 8:28 AM CDT) Only the most recent of2 resultswithin the time period is included. Provider Scanning ECG ORDERABLES Final Result * (ABNORMAL) TROPONIN 2 HR, 5TH GEN (01/05/2025 6:03 PM CDT) Only the most recent of2 resultswithin the time period is included. TROPONIN T, 2 HR 5TH GEN 35(H) <=10 ng/L 01/05/2025 6:29 PM CDT [facility] DELTA 2HR TROPONIN T -3 See Interp. 01/05/2025 6:29 PM CDT [facility] Blood BLOOD SPECIMEN / Unknown Collection / Unknown 01/05/2025 6:03 PM CDT 01/05/2025 6:13 PM CDT Narrative [facility] - 01/05/2025 6:29 PM CDT Troponin elevated. Delta not changing. us Magdiel Alcantar MD CHEMISTRY ORDERABLES Final Resu lt [facility] CLIA # [id number] [address] [place] [id number] * CTA CHEST ABD PELVIS W AND/OR WO CONTRAST (01/05/2025 5:25 PM CDT) Anatomical Region Laterality Modality Chest, Abdomen, Pelvis Computed Tomography 01/05/2025 4:58 PM CDT Impressions 01/05/2025 5:39 PM CDT IMPRESSION: 1. No acute aortic abnormalities. 2. No acute abnormalities in the chest, abdomen or pelvis. 3. Staghorn right renal calculi with associated moderate right hydronephrosis and renal parenchymal atrophy. 4. Tiny bilateral indeterminate pulmonary nodules. 5. Hepatomegaly. Narrative 01/05/2025 5:39 PM CDT EXAM: CT angiogram of the chest, abdomen and pelvis with IV contrast. Contrast: IOPAMIDOL 61 % INTRAVENOUS SOLUTION (SINGLE USE VIAL) Given:150 mL 3-D image sequences were also performed and generated on an independent workstation for evaluation of the aorta and vasculature. Noncontrast sequence was performed. One or more of the following dose reduction techniques were utilized: automated exposure control[AEC], adjustment of mA and/or KV according to patient size, use of iterative reconstruction technique, CT scan done according to ALARA or ALARA image gently. HISTORY: Aortic aneurysm, known or suspected, Acute aortic syndrome (AAS) suspected COMPARISON: CT scan dated 11/12/2024 FINDINGS: CHEST: No aortic dissection, aneurysm, penetrating atheromatous ulcer or intramural hematoma. No central or segmental pulmonary embolism. No pneumothorax. No acute fractures. No pleural effusion. No acute airspace opacities. Coronary atherosclerotic calcifications. Mitral annulus calcifications. Right upper lobe prior operative change. Small amount of scarring in the right mid and upper lung. Multiple tiny bilateral 2 to 3 mm solid pulmonary nodules. ABDOMEN/PELVIS: No aortic dissection, aneurysm, penetrating atheromatous ulcer or intramural hematoma. Celiac, superior mesenteric, right renal, inferior mesenteric, bilateral common iliac, bilateral external iliac and bilateral common femoral arteries are patent without stenosis, aneurysm or dissection. Mild stenosis at the origin of the left renal artery. Multiple small sclerotic skeletal lesions are chronic and not significantly changed and likely benign. Chronic L5 superior endplate compression fracture with mild height loss. Left adrenal nodule measuring 2.8 x 1.8 cm is chronic and not significantly changed. Hysterectomy. Cholecystectomy. Colonic diverticulosis. Staghorn right renal stones involving the renal calyces and renal pelvis with moderate associated hydronephrosis. Prominent right renal parenchymal atrophy. Hepatomegaly measuring up to 20.1 cm. Normal appendix. No free fluid in the abdomen or pelvis. No free intraperitoneal air. No dilated or thickened loops of small bowel or colon. Liver, kidneys, spleen, pancreas and adrenal glands are negative other than listed above. Remainder unremarkable. Procedure Note Eliazar Angel MD - 01/05/2025 EXAM: CT angiogram of the chest, abdomen and pelvis with IV contrast. Contrast: IOPAMIDOL 61 % INTRAVENOUS SOLUTION (SINGLE USE VIAL) Given:150 mL 3-D image sequences were also performed and generated on an independent workstation for evaluation of the aorta and vasculature. Noncontrast sequence was performed. One or more of the following dose reduction techniques were utilized: automated exposure control[AEC], adjustment of mA and/or KV according to patient size, use of iterative reconstruction technique, CT scan done according to ALARA or ALARA image gently. HISTORY: Aortic aneurysm, known or suspected, Acute aortic syndrome (AAS) suspected COMPARISON: CT scan dated 11/12/2024 FINDINGS: CHEST: No aortic dissection, aneurysm, penetrating atheromatous ulcer or intramural hematoma. No central or segmental pulmonary embolism. No pneumothorax. No acute fractures. No pleural effusion. No acute airspace opacities. Coronary atherosclerotic calcifications. Mitral annulus calcifications. Right upper lobe prior operative change. Small amount of scarring in the right mid and upper lung. Multiple tiny bilateral 2 to 3 mm solid pulmonary nodules. ABDOMEN/PELVIS: No aortic dissection, aneurysm, penetrating atheromatous ulcer or intramural hematoma. Celiac, superior mesenteric, right renal, inferior mesenteric, bilateral common iliac, bilateral external iliac and bilateral common femoral arteries are patent without stenosis, aneurysm or dissection. Mild stenosis at the origin of the left renal artery. Multiple small sclerotic skeletal lesions are chronic and not significantly changed and likely benign. Chronic L5 superior endplate compression fracture with mild height loss. Left adrenal nodule measuring 2.8 x 1.8 cm is chronic and not significantly changed. Hysterectomy. Cholecystectomy. Colonic diverticulosis. Staghorn right renal stones involving the renal calyces and renal pelvis with moderate associated hydronephrosis. Prominent right renal parenchymal atrophy. Hepatomegaly measuring up to 20.1 cm. Normal appendix. No free fluid in the abdomen or pelvis. No free intraperitoneal air. No dilated or thickened loops of small bowel or colon. Liver, kidneys, spleen, pancreas and adrenal glands are negative other than listed above. Remainder unremarkable. IMPRESSION: 1. No acute aortic abnormalities. 2. No acute abnormalities in the chest, abdomen or pelvis. 3. Staghorn right renal calculi with associated moderate right hydronephrosis and renal parenchymal atrophy. 4. Tiny bilateral indeterminate pulmonary nodules. 5. Hepatomegaly. us Magdiel Alcantar MD CT ORDERABLES Final Result * XR CHEST PA OR AP 1 VW (01/05/2025 4:06 PM CDT) Only the most recent of12 resultswithin the time period is included. Anatomical Region Laterality Modality Chest Computed Radiogr aphy 01/05/2025 4:07 PM CDT Impressions 01/05/2025 4:33 PM CDT IMPRESSION: See below. Exam: XR CHEST PA OR AP 1 VW Date/Time of Exam: 01/05/2025 4:06 PM Reason For Exam: Chest Pain. Diagnosis: See Reason for Exam. Prior: 11/26/2024 Findings: Cardiac silhouette is within normal in its. Increased pulmonary vascular congestion. Unchanged right upper lung scarring/atelectasis. Increased bibasilar patchy opacities with significant infection or atelectasis. No pleural effusion or pneumothorax. No acute osseous abnormality. Narrative Procedure Note Guanakito Barnhart, DO - 01/05/2025 IMPRESSION: See below. Exam: XR CHEST PA OR AP 1 VW Date/Time of Exam: 01/05/2025 4:06 PM Reason For Exam: Chest Pain. Diagnosis: See Reason for Exam. Prior: 11/26/2024 Findings: Cardiac silhouette is within normal in its. Increased pulmonary vascular congestion. Unchanged right upper lung scarring/atelectasis. Increased bibasilar patchy opacities with significant infection or atelectasis. No pleural effusion or pneumothorax. No acute osseous abnormality. us Magdiel Alcantar MD DIAGNOSTIC IMAGING ORDERABLES F inal Result * (ABNORMAL) TROPONIN BASELINE, 5TH GEN (01/05/2025 3:53 PM CDT) Only the most recent of2 resultswithin the time period is included. TROPONIN T, BASELINE 5TH GEN 38(H) <=10 ng/L 01/05/2025 4:32 PM CDT [facility] Blood Collection / Unknown 01/05/2025 3:53 PM CDT 01/05/2025 4:04 PM CDT Narrative [facility] - 01/05/2025 4:32 PM CDT Troponin elevated. Result Arlene Alcantar MD CHEMISTRY ORDERABLES Final Resu lt Performing Organization Address City/[facility]/ZIP Co de Phone Number [facility] CLIA # [id number] [address] [place] [address] 18062 * (ABNORMAL) LACTIC ACID (01/05/2025 3:53 PM CDT) LACTIC ACID 2.1(H) <=2.0 mmol/L 01/05/2025 4:21 PM CDT [facility] Blood BLOOD SPECIMEN / Unknown Collection / Unknown 01/05/2025 3:53 PM CDT 01/05/2025 4:04 PM CDT us Magdiel Alcantar MD CHEMISTRY ORDERABLES Final Resu lt [facility] CLIA # [id number] [address] [place] [address]37 * (ABNORMAL) CBC WITH DIFFERENTIAL (01/05/2025 3:53 PM CDT) Only the most recent of8 resultswithin the time period is included. WBC 9.8 4.0 - 10.0 K/uL 01/05/2025 4:06 PM [facility] RBC 5.15 3.93 - 5.22 M/uL 01/05/2025 4:06 PM [facility] HEMOGLOBIN 14.6 11.2 - 15.7 g/dL 01/05/2025 4:06 PM [facility] HEMATOCRIT 42.4 34.1 - 44.9 % 01/05/2025 4:06 PM [facility] MCV 82.3 79.4 - 94.8 fL 01/05/2025 4:06 PM [facility] MCH 28.3 25.6 - 32.2 pg 01/05/2025 4:06 PM [facility] MCHC 34.4 32.2 - 35.5 g/dL 01/05/2025 4:06 PM [facility] RDW 13.5 11.0 - 14.5 % 01/05/2025 4:06 PM [facility] RDW-STDEV 40.5 36.9 - 56.9 fL 01/05/2025 4:06 PM [facility] PLATELETS 261 163 - 337 K/uL 01/05/2025 4:06 PM [facility] MPV 9.0(L) 10.0 - 14.8 fL 01/05/2025 4:06 PM [facility] NEUTROPHILS 77(H) 34 - 71 % 01/05/2025 4:06 PM [facility] LYMPHOCYTES 14(L) 19 - 52 % 01/05/2025 4:06 PM [facility] MONOCYTES 8 5 - 13 % 01/05/2025 4:06 PM [facility] EOSINOPHILS 1 1 - 6 % 01/05/2025 4:06 PM CDT [facility] BASOPHILS 0 0 - 1 % 01/05/2025 4:06 PM CDT [facility] IMMATURE GRANULOCYTES 0 % 01/05/2025 4:06 PM CDT [facility] NEUTROPHIL ABSOLUTE 7.48(H) 1.56 - 6.13 K/uL 01/05/2025 4:06 PM CDT [facility] LYMPHOCYTE ABSOLUTE 1.39 1.20 - 3.40 K/uL 01/05/2025 4:06 PM CDT [facility] MONOCYTE ABSOLUTE 0.73(H) 0.24 - 0.36 K/uL 01/05/2025 4:06 PM CDT [facility] EOSINOPHIL ABSOLUTE 0.10 0.04 - 0.36 K/uL 01/05/2025 4:06 PM CDT [facility] BASOPHILS ABSOLUTE 0.03 0.01 - 0.08 K/uL 01/05/2025 4:06 PM CDT [facility] IMMATURE GRANULOCYTES ABSOLUTE 0.04 K/uL 01/05/2025 4:06 PM CDT [facility] Blood Collection / Unknown 01/05/2025 3:53 PM CDT 01/05/2025 4:04 PM CDT us Magdiel Alcantar MD HEMATOLOGY ORDERABLES Final Res ult [facility] CLIA # [id number] [address] [place] [address] 65548 * (ABNORMAL) PTT (01/05/2025 3:53 PM CDT) PTT 47.0(H) 25.1 - 35.4 seconds 01/05/2025 4:18 PM CDT [facility] Blood Collection / Unknown 01/05/2025 3:53 PM CDT 01/05/2025 4:04 PM CDT us Magdiel Alcantar MD HEMATOLOGY ORDERABLES Final Res ult Performing Organization Address City/[facility]/ZIP Co de Phone Number [facility] CLIA # [id number] [address] [place] [address] 75205 * SEDIMENTATION RATE (01/05/2025 3:53 PM CDT) ESR (SEDIMENTATION RATE) 26 0 - 30 mm/Hr 01/05/2025 4:21 PM CDT [facility] Blood Collection / Unknown 01/05/2025 3:53 PM CDT 01/05/2025 4:04 PM CDT Narrative [facility] - 01/05/2025 4:21 PM CDT Tube Lot: #[id number] Exp Date: 05/12/2026 QC1 LOT [id number] EXP.05/17/2025 QC2 LOT [id number] EXP.05/17/2025 us Magdiel Alcantar MD HEMATOLOGY ORDERABLES Final Res ult Performing Organization Address [facility] Co de Phone Number [facility] CLIA # [id number] [address] [place] [address] 96507 * (ABNORMAL) PROTIME-INR (01/05/2025 3:53 PM CDT) PROTIME 21.6(H) 12.1 - 14.3 Seconds 01/05/2025 4:18 PM CDT [facility] INR 1.9(H) 0.9 - 1.1 01/05/2025 4:18 PM CDT [facility] Blood Collection / Unknown 01/05/2025 3:53 PM CDT 01/05/2025 4:04 PM CDT us Magdiel Alcantar MD HEMATOLOGY ORDERABLES Final Res ult Performing Organization Address City/[facility]/ZIP Co de Phone Number [facility] CLIA # [id number] [address] [place] [address] 56961 * D-DIMER (01/05/2025 3:53 PM CDT) Only the most recent of2 resultswithin the time period is included. D-DIMER QUANT <0.15 <0.50 ug/mL FEU 01/05/2025 4:21 PM CDT [facility] Blood Collection / Unknown 01/05/2025 3:53 PM CDT 01/05/2025 4:04 PM CDT Narrative [facility] - 01/05/2025 4:21 PM CDT D-Dimer assay cutoff value for exclusion [...] FEU 71-80 years: 0.71-0.80 ug/mL FEU us Magdiel Alcantar MD HEMATOLOGY ORDERABLES Final Res ult Performing Organization Address City/[facility]/ZIP Co de Phone Number [facility] CLIA # [id number] [address] [place] [address] 65548 * (ABNORMAL) C-REACTIVE PROTEIN (01/05/2025 3:53 PM CDT) Pathologist [facility] CRP 8.0(H) <5.0 mg/L 01/05/2025 4:32 PM CDT [facility] Blood Collection / Unknown 01/05/2025 3:53 PM CDT 01/05/2025 4:04 PM CDT us Magdiel Alcantar MD CHEMISTRY ORDERABLES Final Resu lt Performing Organization Address City/[facility]/ZIP Co de Phone Number [facility] CLIA # [id number] [address] [place] [address] 03061 * TSH (01/05/2025 3:53 PM CDT) Only the most recent of2 resultswithin the time period is included. TSH 1.31 0.27 - 4.20 uIU/mL 01/05/2025 4:32 PM CDT [facility] Blood Collection / Unknown 01/05/2025 3:53 PM CDT 01/05/2025 4:04 PM CDT us Magdiel Alcantar MD CHEMISTRY ORDERABLES Final Resu lt Performing Organization Address [facility] Co de Phone Number [facility] CLIA # [id number] [address] [place] [address] 08316 * (ABNORMAL) BRAIN NATRIURETIC PEPTIDE, BNP OR PROBNP (01/05/2025 3:53 PM CDT) Pathologist [facility] PROBNP, N TERMINAL 648(H) 0 - 125 pg/mL 01/05/2025 4:32 PM CDT [facility] Comment: INTERPRETIVE COMMENT based on diagnosis: Diagnostic [...] 900 pg/mL >75 years: >1800 pg/mL Blood Collection / Unknown 01/05/2025 3:53 PM CDT 01/05/2025 4:04 PM CDT us Magdiel Alcantar MD CHEMISTRY ORDERABLES Final Resu lt Performing Organization Address City/[facility]/ZIP Co de Phone Number [facility] CLIA # [id number] [address] [place] [address] 39948 * MAGNESIUM LEVEL (01/05/2025 3:53 PM CDT) Only the most recent of3 resultswithin the time period is included. Pathologist [facility] MAGNESIUM 1.7 1.6 - 2.4 mg/dL 01/05/2025 4:32 PM CDT [facility] Blood Collection / Unknown 01/05/2025 3:53 PM CDT 01/05/2025 4:04 PM CDT us Magdiel Alcantar MD CHEMISTRY ORDERABLES Final Resu lt Performing Organization Address [facility]/ZIP Co de Phone Number [facility] CLIA # [id number] [address] [place] [address] 29814 * LIPASE (01/05/2025 3:53 PM CDT) [facility] LIPASE 26 13 - 60 U/L 01/05/2025 4:32 PM CDT [facility] Blood Collection / Unknown 01/05/2025 3:53 PM CDT 01/05/2025 4:04 PM CDT us Magdiel Alcantar MD CHEMISTRY ORDERABLES Final Resu lt Performing Organization Address [facility]/ZIP Co de Phone Number [facility] CLIA # [id number] [address] [place] [address] 08889 * (ABNORMAL) COMPREHENSIVE METABOLIC PANEL (01/05/2025 3:53 PM CDT) Only the most recent of3 resultswithin the time period is included. Pathologist [facility] SODIUM 135(L) 136 - 145 mmol/L 01/05/2025 4:32 PM CDT [facility] POTASSIUM 4.7 3.5 - 5.1 mmol/L 01/05/2025 4:32 PM CDT [facility] Comment:Slightly hemolyzed. Result may be falsely elevated. CHLORIDE 95(L) 98 - 107 mmol/L 01/05/2025 4:32 PM [facility] CO2 25 22 - 29 mmol/L 01/05/2025 4:32 PM [facility] CALCIUM 10.2 8.8 - 10.2 mg/dL 01/05/2025 4:32 PM [facility] BUN 15 8 - 23 mg/dL 01/05/2025 4:32 PM [facility] CREATININE 1.00(H) 0.51 - 0.95 mg/dL 01/05/2025 4:32 PM [facility] GLUCOSE 202(H) 74 - 99 mg/dL 01/05/2025 4:32 PM [facility] TOTAL PROTEIN 7.2 6.6 - 8.7 g/dL 01/05/2025 4:32 PM [facility] ALBUMIN 4.3 3.5 - 5.2 g/dL 01/05/2025 4:32 PM [facility] BILIRUBIN TOTAL 0.3 0.0 - 1.2 mg/dL 01/05/2025 4:32 PM [facility] ALKALINE PHOSPHATASE 97 35 - 104 U/L 01/05/2025 4:32 PM [facility] AST 20 0 - 35 U/L 01/05/2025 4:32 PM [facility] Comment:Hemolysis present. R esult may be falsely elevated. ALT 9 0 - 35 U/L 01/05/2025 4:32 PM [facility] GFR >60 >=60 mL/min/1.7 3 sq meter 01/05/2025 4:32 PM [facility] Comment:eGFR calculated with 2020 CKD-EPI equation. Vegetarian diet, extremely high or low muscle mass, and may affect results. Cystatin C with Glomerular Filtration Rate is a suitable alternative for these patients. ANION GAP 15 5 - 20 mmol/L 01/05/2025 4:32 PM [facility] Blood Collection / Unknown 01/05/2025 3:53 PM CDT 01/05/2025 4:04 PM CDT us Magdiel Alcantar MD CHEMISTRY ORDERABLES Final Resu lt [facility] CLIA # [id number] [address] [place] [address] 22247 * URINALYSIS WITH REFLEX MICROSCOPIC (01/05/2025 3:49 PM CDT) Only the most recent of2 resultswithin the time period is included. COLOR UA Yellow Pale to Dark Yellow 01/05/2025 4:12 PM CDT [facility] CLARITY UA Clear Clear 01/05/2025 4:12 PM CDT [facility] SPECIFIC GRAVITY UA 1.010 1.003 - 1.035 01/05/2025 4:12 PM CDT [facility] PH UA 7.0 5.0 - 8.0 01/05/2025 4:12 PM CDT [facility] LEUKOCYTE ESTERASE UA Negative Negative 01/05/2025 4:12 PM CDT [facility] NITRITE UA Negative Negative 01/05/2025 4:12 PM CDT [facility] PROTEIN UA Negative Negative 01/05/2025 4:12 PM CDT [facility] GLUCOSE UA Negative Negative 01/05/2025 4:12 PM CDT [facility] KETONES UA Negative Negative 01/05/2025 4:12 PM CDT [facility] UROBILINOGEN UA 0.2 <2.0 mg/dL 4:12 PM CDT [facility] BILIRUBIN UA Negative Negative 01/05/2025 4:12 PM CDT [facility] BLOOD UA Negative Negative 01/05/2025 4:12 PM CDT [facility] Urine URINE SPECIMEN OBTAINED BY CLEAN CATCH PROCEDURE / Unknown Collection / Unknown 01/05/2025 3:49 PM CDT 01/05/2025 4:09 PM CDT us Magdiel Alcantar MD URINE ORDERABLES Final Result [facility] CLIA # [id number] [address] [place] [address] 76430 * XR CHEST PA AND LATERAL 2 VW (11/26/2024 1:40 PM CDT) Anatomical Region Laterality Modality Chest Computed Radiogr aphy 11/26/2024 1:40 PM CDT Impressions 11/26/2024 3:38 PM CDT IMPRESSION: Significantly improved appearance of the right upper lobe and right lung suggesting a resolving pneumonia. No new superimposed acute radiographic abnormalities. Narrative 11/26/2024 3:38 PM CDT EXAM: XR CHEST PA AND LATERAL 2 VW DATE/TIME OF EXAM: 11/26/2024 1:40 PM REASON FOR EXAM: See Diagnosis DIAGNOSIS: Pneumonia due to infectious organism, unspecified laterality, unspecified part of lung COMPARISON: 11/13/2024 FINDINGS: - Lines/tubes: None. - Cardiomediastinal: Contours are within normal limits. - Lungs/pleura: Significantly decreased multifocal airspace opacities in the right lung. Improved lung volumes. No new areas of consolidation. Question postinfectious inflammatory scarring peripherally in the right lung. No significant pleural effusion or visible pneumothorax. - Bones and soft tissues: No acute abnormalities. - Additional comments: None. Procedure Note Martin Tran MD - 11/26/2024 EXAM: XR CHEST PA AND LATERAL 2 VW DATE/TIME OF EXAM: 11/26/2024 1:40 PM REASON FOR EXAM: See Diagnosis DIAGNOSIS: Pneumonia due to infectious organism, unspecified laterality, unspecified part of lung COMPARISON: 11/13/2024 FINDINGS: - Lines/tubes: None. - Cardiomediastinal: Contours are within normal limits. - Lungs/pleura: Significantly decreased multifocal airspace opacities in the right lung. Improved lung volumes. No new areas of consolidation. Question postinfectious inflammatory scarring peripherally in the right lung. No significant pleural effusion or visible pneumothorax. - Bones and soft tissues: No acute abnormalities. - Additional comments: None. IMPRESSION: Significantly improved appearance of the right upper lobe and right lung suggesting a resolving pneumonia. No new superimposed acute radiographic abnormalities. us Ellie Han MD DIAGNOSTIC IMAGING ORD ERABLES Final Result * (ABNORMAL) POC GLUCOSE (11/13/2024 12:05 PM CDT) Only the most recent of26 resultswithin the time period is included. [facility] GLUCOSE POC 179(H) 74 - 99 mg/dL 11/13/2024 12:05 PM CDT [facility] SPECIMEN SOURCE, GLUCOSE POC Capillary 11/13/2024 12:05 PM CDT [facility] Blood, whole 11/13/2024 12:0 5 PM CDT 11/13/2024 12:15 PM CDT Luis Fernando Chino MD POINT OF CARE TESTING Final Resu lt [facility] CLIA # [id number] [address] [place] [address] * RESPIRATORY PATHOGEN PCR PANEL (11/13/2024 10:22 AM CDT) Only the most recent of2 resultswithin the time period is included. [facility] Respiratory Pathogen PCR Panel NOT DETECTED No respiratory pathogen nucleic acids detected. 11/13/2024 11:25 AM CDT [facility] COVID-19 PCR NOT DETECTED Not Detected 11/13/2024 11:25 AM CDT [facility] Upper Respiratory ENTIRE NASOPHARYNX / Unknown Collection / Unknown 11/13/2024 10:22 AM CDT 11/13/2024 10:30 AM CDT Narrative [facility] - 11/13/2024 11:25 AM CDT [facility] [employer] Respiratory Panel (RP2.1) [...] pertussis Bordetella parapertussis Chlamydophila pneumoniae Mycoplasma pneumoniae us Luis Fernando Chino MD MICROBIOLOGY - GENERAL ORDERABLE S Final Result [facility] CLIA # [id number] [address] [place] [address] [place] [address] * PROCALCITONIN (11/13/2024 9:27 AM CDT) Only the most recent of2 resultswithin the time period is included. PROCALCITONIN 0.04 <=0.08 ng/mL 11/13/2024 10:21 AM CDT [facility] [employer] [facility] Blood Venipuncture / Unknown 11/13/2024 9:27 AM CDT 11/13/2024 9:30 AM CDT Narrative [facility] [employer] [facility] - 11/13/2024 10:21 AM CDT The utility of procalcitonin is limited/NOT recommended in certain populations (e.g. newborns, dialysis/ESRD, patients with recent major surgery/trauma/mcqueen, liver cirrhosis, viral hepatitis, certain cancers, etc.). Procalcitonin levels MUST be interpreted in the context of the patient's clinical condition and CANNOT be solely relied upon for diagnosis of infection. <0.25 ng/mL: Bacterial infection unlikely, particularly lower respiratory tract infections. <0.5 ng/mL: Low risk for progression to severe sepsis/septic shock. Localized infection possible. Measurements done early (<6 hours) after systemic process starts may still be low. 0.5-2 ng/mL: Moderate risk for progression to severe sepsis/septic shock. >2 ng/mL: High risk for progression to severe sepsis/septic shock. If antibiotics ARE administered, repeat testing is recommended every 2-3 days to help guide antibiotic cessation. Once a decrease of 80% or more has occurred from baseline, discontinuation of antibiotics should strongly be considered in clinically stable patients. Procalcitonin is produced in the setting of systemic inflammation, particularly bacterial infections. It is detectable within 2-4 hours and peaks within 6-24 hours. us Luis Fernando Chino MD CHEMISTRY ORDERABLES Final Resul t [facility] CLIA # [id number] [address] [place] [address] * EKG 12-LEAD (11/13/2024 6:17 AM CDT) Only the most recent of3 resultswithin the time period is included. 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 Director: [id number] : 1960 Requested By: Order Number: [id number] Reading : Debo Tavera Measurements Intervals [place] Rate: 57 P: -17 CO: 178 QRS: 51 QRSD: 94 T: 65 QT: 422 QTc: 410 Interpretive Statements Sinus bradycardia with marked sinus arrhythmia Otherwise normal ECG Electronically Signed On 11-14-2024 15:52:21 CDT by Debo Tavera Procedure Note Provider, Historical - 11/14/[address] [address] Test Date: 2024-11-13 Pat Name: ALISSA ASENCIO Department: 12 Room: [facility] 02 Gender: Female Funeral Arrangement Director: [id number] : 1960 Requested By: Order Number: [id number] Olegario Tavera Measurements Intervals [place] Rate: 57 P: -17 CO: 178 QRS: 51 QRSD: 94 T: 65 QT: 422 QTc: 410 Interpretive Statements Sinus bradycardia with marked sinus arrhythmia Otherwise normal ECG Electronically Signed On 11-14-2024 15:52:21 CDT by Debo Tavera Mo Raines MD ECG ORDERABLES Final R esult INTERFACE SYSTEM Refer to clinic/hospital department * (ABNORMAL) BASIC METABOLIC PANEL (11/13/2024 4:55 AM CDT) Only the most recent of5 resultswithin the time period is included. SODIUM 133(L) 136 - 145 mmol/L 11/13/2024 6:11 AM CDT [facility] POTASSIUM 4.1 3.5 - 5.1 mmol/L 11/13/2024 6:11 AM CDT [facility] CHLORIDE 100 98 - 107 mmol/L 11/13/2024 6:11 AM T [facility] CO2 25 22 - 29 mmol/L 11/13/2024 6:11 AM T [facility] CALCIUM 9.1 8.8 - 10.2 mg/dL 11/13/2024 6:11 AM T [facility] BUN 18 8 - 23 mg/dL 11/13/2024 6:11 AM T [facility] CREATININE 0.69 0.51 - 0.95 mg/dL 11/13/2024 6:11 AM T [facility] GLUCOSE 160(H) 74 - 99 mg/dL 11/13/2024 6:11 AM T [facility] GFR >60 >=60 mL/min/1.7 3 sq meter 11/13/2024 6:11 AM T [facility] Comment:eGFR calculated with 2020 CKD-EPI equation. Vegetarian diet, extremely high or low muscle mass, and may affect results. Cystatin C with Glomerular Filtration Rate is a suitable alternative for these patients. ANION GAP 8(L) 9 - 20 mmol/L 11/13/2024 6:11 AM T [facility] Blood Venipuncture / Unknown 11/13/2024 4:55 AM CDT 11/13/2024 5:37 AM CDT Luis Fernando Chino MD CHEMISTRY ORDERABLES Final Resul t [facility] # [id number] [facility] [address] [place] [address] * CTA CHEST W AND/OR WO CONTRAST (11/12/2024 6:32 PM CDT) Anatomical Region Laterality Modality Chest Computed Tomogra phy 11/12/2024 6:33 PM CDT Impressions 11/12/2024 8:34 PM CDT IMPRESSION: Please see below. Exam: CTA CHEST W AND/OR WO CONTRAST Date/Time of Exam: 11/12/2024 6:32 PM Reason For Exam: Pulmonary embolism (PE) suspected, low to intermediate prob, positive D-dimer, Pulmonary embolism (PE) suspected, high prob. Diagnosis: Pneumothorax. Technique: CTA of the chest was performed prior to and/or following the administration of intravenous contrast. Post-processing was performed, including sagittal and coronal reformations. Contrast: IOPAMIDOL 61 % INTRAVENOUS SOLUTION (MULTI-DOSE BULK PACK) Given:100 mL. Comparison: Radiographs from 11/12/[address] chest from 11/07/2024. FINDINGS: Thoracic Inlet: There is redemonstration of a partially visualized enlarged multinodular thyroid which appears grossly unchanged; thyroid ultrasound could assess further. Lymph Nodes: There are no pathologic axillary, mediastinal or hilar lymph nodes by size criteria. Heart: The heart is on the upper limits of normal in size. There are coronary artery and valvular calcifications. There is no pericardial effusion. Thoracic Aorta: The thoracic aorta is nonaneurysmal. Pulmonary Arteries: The pulmonary arteries are adequately opacified. There are no discrete pulmonary arterial filling defects to suggest pulmonary embolus. Tracheobronchial Tree: The tracheobronchial tree is clear. Lungs: There are apparent postsurgical changes of partial right pneumonectomy. There are irregular patchy linear and subpleural opacities within the right lung likely reflecting areas of atelectasis and/or parenchymal scarring. There is redemonstration of a mild degree of patchy groundglass opacity within the left upper lobe which is likely infectious/inflammatory in etiology and mildly progressed. There is no new consolidation. Pleura: There has been interval exchange of the right-sided thoracostomy tube which is intrafissural in location and appears partially kinked at the level of the ribs. There is a small persistent right pneumothorax which is decreased in size. There is a trace right pleural effusion which is decreased in size. Upper Abdomen: No acute upper abdominal pathology is appreciated. There is a left adrenal nodule which is unchanged likely reflecting an adenoma. Subcutaneous Soft Tissues: There is a small amount of subcutaneous emphysema. Bones: The osseous structures appear grossly intact. No suspicious osseous lesions are identified. IMPRESSION: No evidence of pulmonary embolus. Mild interval increase in patchy presumed infectious/inflammatory groundglass pulmonary opacities. Interval decrease in size of small persistent right pneumothorax with the thoracostomy tube appearing intrafissural and partially kinked. Interval decrease in size of trace residual right pleural effusion. Additional incidental findings as above. Narrative Procedure Note Eliazar Simmons, DO - 11/12/2024 IMPRESSION: Please see below. Exam: CTA CHEST W AND/OR WO CONTRAST Date/Time of Exam: 11/12/2024 6:32 PM Reason For Exam: Pulmonary embolism (PE) suspected, low to intermediate prob, positive D-dimer, Pulmonary embolism (PE) suspected, high prob. Diagnosis: Pneumothorax. Technique: CTA of the chest was performed prior to and/or following the administration of intravenous contrast. Post-processing was performed, including sagittal and coronal reformations. Contrast: IOPAMIDOL 61 % INTRAVENOUS SOLUTION (MULTI-DOSE BULK PACK) Given:100 mL. Comparison: Radiographs from 11/12/[address] chest from 11/07/2024. FINDINGS: Thoracic Inlet: There is redemonstration of a partially visualized enlarged multinodular thyroid which appears grossly unchanged; thyroid ultrasound could assess further. Lymph Nodes: There are no pathologic axillary, mediastinal or hilar lymph nodes by size criteria. Heart: The heart is on the upper limits of normal in size. There are coronary artery and valvular calcifications. There is no pericardial effusion. Thoracic Aorta: The thoracic aorta is nonaneurysmal. Pulmonary Arteries: The pulmonary arteries are adequately opacified. There are no discrete pulmonary arterial filling defects to suggest pulmonary embolus. Tracheobronchial Tree: The tracheobronchial tree is clear. Lungs: There are apparent postsurgical changes of partial right pneumonectomy. There are irregular patchy linear and subpleural opacities within the right lung likely reflecting areas of atelectasis and/or parenchymal scarring. There is redemonstration of a mild degree of patchy groundglass opacity within the left upper lobe which is likely infectious/inflammatory in etiology and mildly progressed. There is no new consolidation. Pleura: There has been interval exchange of the right-sided thoracostomy tube which is intrafissural in location and appears partially kinked at the level of the ribs. There is a small persistent right pneumothorax which is decreased in size. There is a trace right pleural effusion which is decreased in size. Upper Abdomen: No acute upper abdominal pathology is appreciated. There is a left adrenal nodule which is unchanged likely reflecting an adenoma. Subcutaneous Soft Tissues: There is a small amount of subcutaneous emphysema. Bones: The osseous structures appear grossly intact. No suspicious osseous lesions are identified. IMPRESSION: No evidence of pulmonary embolus. Mild interval increase in patchy presumed infectious/inflammatory groundglass pulmonary opacities. Interval decrease in size of small persistent right pneumothorax with the thoracostomy tube appearing intrafissural and partially kinked. Interval decrease in size of trace residual right pleural effusion. Additional incidental findings as above. Luis Fernando Chino MD CT ORDERABLES Final Result * (ABNORMAL) TROPONIN 6 HR, 5TH GEN (11/12/2024 3:33 PM CDT) TROPONIN T, 6 HR 5TH GEN 29(H) <11 ng/L 11/12/2024 4:19 PM CDT [facility] DELTA 6HR TROPONIN T 0 See Interp. 11/12/2024 4:19 PM CDT [facility] Blood Venipuncture / Unknown 11/12/2024 3:33 PM CDT 11/12/2024 3:48 PM CDT Narrative [facility] [employer] [facility] - 11/12/2024 4:19 PM CDT Troponin elevated. Delta indeterminate. Luis Fernando Chino MD CHEMISTRY ORDERABLES Final Resul t [facility] [employer] [facility] CLIA # [id number] [id number] [place] [address] * T4 FREE (11/12/2024 5:10 AM CDT) T4 FREE 1.52 0.81 - 1.70 ng/dL 11/12/2024 9:35 AM CDT [facility] Blood Venipuncture / Unknown 11/12/2024 5:10 AM CDT 11/12/2024 5:27 AM CDT us Luis Fernando Chino MD CHEMISTRY ORDERABLES Final Resul t [facility] CLIA # [id number] [facility] [address] * PATHOLOGY (11/09/2024 9:12 AM CDT) CASE REPORT Surgical Pathology Report Case: [id number] Authorizing Provider: Sonia Shen MD Collected: 11/09/2024 09:12 AM Ordering Location: [facility] Received: 11/09/2024 09:50 AM Cardiovascular Operating Room Pathologist: Manohar Inman MD Specimen: Lung, right upper lobe, apex 12:47 PM CDT [facility] FINAL DIAGNOSIS A. Lung, right upper lobe apex, wedge excision - benign lung tissue with subpleural fibrosis, mild emphysematous changes, reactive pneumocyte hyperplasia, and patchy interstitial chronic inflammation - no tumor or granulomas identified - (history of pneumothorax). Manohar Inman MD [id number] 12:47 PM CDT [facility] at 1247 CDT GROSS DESCRIPTION A. Received in a container of formalin labeled Krist -lung, RUL apex is a 3.3 x 0.7 x 0.7 cm lung wedge with a staple line margin at 1 edge. The staple line is inked blue. Sectioning reveals a 0.8 x 0.3 x 0.3 cm hemorrhagic area. No other masses or lesions are grossly identified. The specimen is serially sectioned and submitted entirely in A1-A2. Uyen Hannah 12:47 PM CDT [facility] OPERATIVE PROCEDURE 1: LUNG WEDGE RESECTION 2: PLEURODESIS THORACOSCOPIC 3: THORACOSCOPY VIDEO ASSISTED 12:47 PM CDT [facility] CLINICAL INFORMATION None 12:47 PM CDT [facility] COMMENT The V I O voice-activated dictation system may have been used in the creation of this report. Inherent to this system is the possibility of errors in syntax, grammar, punctuation, or other areas that could impact interpretation. If there are interpretive questions about the report, please contact the performing pathologist. Unless gross only is specified in the diagnosis, the microscopic examination substantiates the above cited diagnosis. The performance characteristics of all immunohistochemical stains cited in this report (if any) were determined by the [facility] of [facility] in compliance with CLIA'88 regulations. Some of these tests rely on the use of analyte specific reagents and are subject to specific labeling requirements by the FDA. All controls show appropriate reactivity. This testing was developed by the [facility] of [facility]. It has not been cleared or approved by the FDA. The FDA has determined that such clearance or approval is not necessary. 12:47 PM CDT [facility] Tissue SPECIMEN FROM LUNG / Unknown Collection / Unknown 11/09/2024 9:12 AM CDT 11/09/2024 9:50 AM CDT us Sonia Shen MD PATHOLOGY/CYTOLOGY ORDERABLES F inal Result [facility] CLIA # [id number] [address] [address] * CO ANES INSERT CATH, ART, PERCUT, SHORTTERM (11/09/2024 8:08 AM CDT) Narrative Conrado, Salvatore Zen, FIRE PREVENTION CAPTAIN - 11/09/2024 8:08 AM CDT Salvatore Camp CRNA 11/09/2024 8:10 AM Arterial Line Insertion Start Time: 11/09/2024 7:41 AM End Time: 11/09/2024 7:49 AM Patient location during procedure: OR Staffing Performed: FIRE PREVENTION CAPTAIN/CAA Authorized by: Evan Richardson MD Performed by: Salvatore Camp CRNA Patient was prepped and draped in usual sterile fashion Indications: multiple ABGs and hemodynamic monitoring Hand hygiene performed prior to procedure Sterile Barriers: gloves, cap and mask Preparation: skin prepped with ChloraPrep Skin prep agent dried: skin prep agent completely dried prior to procedure Patient position: flat Location: right radial Seldinger technique used Catheter size: 20 G Catheter Length (in.): 1.75 [place] Identification: palpation technique Number of attempts: 2 Successful placement: yes Assessment: blood return through port Procedure uneventful Post-procedure: line secured and dressing applied Evan Richardson MD PROCEDURE/MINOR SURGICAL ORDER FRANCISCO Final Result * CO ANES INSERT ENDOTRACHEAL AIRWAY (11/09/2024 7:45 AM CDT) Narrative Evan Shipley CRNA - 11/09/2024 7:45 AM CDT Evan Shipley CRNA 11/09/2024 8:15 AM Airway Date/Time: 11/09/2024 7:45 AM Location: OR Plan: elective intubation Patient Identity Confirmed by: Verbally with patient and armband Airway: not difficult Staffing Performed: FIRE PREVENTION CAPTAIN/CAA Authorized by: Evan Richardson MD Performed by: Evan Shipley CRNA Indications and Patient Condition: Indications for Airway Management: Anesthesia Sedation Level: general anesthesia Preoxygenated: yes Patient Position: Sniffing and appropriate position w/cervical spine immobilization maintained throughout the procedure Mask Difficulty Assessment: 1 - vent by mask Plan to extubate at end of case: Yes Final Airway Details: Final Airway Type: Endotracheal airway ETT - double lumen left Cuffed: Yes Technique Used for Successful ETT Placement: Direct laryngoscopy Devices/Methods Used in Placement: Cricoid pressure Blade Type: curved blade Blade Size: 3 Insertion Site: Oral ETT Double Lumen (fr): 37 Measured from: Teeth ETT to Teeth (cm): 29 Tube secured with: Tape Placement Verified by: auscultation, bronchoscopy, end tidal CO2 and chest rise Cormack-Lehane Classification: Grade I - full view of glottis Number of Attempts at Approach: 1 Additional Procedure Information: atraumatic Evan Richardson MD PROCEDURE/MINOR SURGICAL ORDER FRANCISCO Final Result * TYPE AND SCREEN (11/09/2024 6:30 AM CDT) [facility] ANTIBODY SCREEN Negative 11/09/2024 7:29 AM CDT [facility] [place] ABO GROUP O 11/09/2024 7:29 AM CDT [facility] [place] RH (D) TYPE Positive 11/09/2024 7:29 AM CDT [facility] [place] Blood Venipuncture / Unknown 11/09/2024 6:30 AM CDT 11/09/2024 6:36 AM CDT Sonia Shen MD BLOOD BANK ORDERABLES Edited Re sult - Final [facility] [place] CLIA#[id number] [address] [place], [place] [address], * PREPARE RED BLOOD CELLS (11/09/2024 6:09 AM CDT) Only the most recent of2 resultswithin the time period is included. [facility] COMPONENT TYPE [id number] [facility] [place] COMPONENT IDENTIFICATION [id number] [facility] [place] UNIT ABO O [facility] [place] UN[facility] RH POS [facility] [place] CROSSMATCH Compatible [facility] [place] COMPONENT STATUS Returned [facility] [place] COMPONENT EXPIRATION DATE/TIME [id number] [facility] [place] COMPONENT CODING SYSTEM 5100 [facility] [place] VOLUME, BLOOD PRODUCT 350 [facility] [place] 11/09/2024 6:09 AM CDT Sonia Shen MD LAB TRANSFUSION ORDERABLES Edit ed Result - Final [facility] [place] ARMOND#[id number] [address] [place] [address], [place] [phone] * CT CHEST WO CONTRAST (11/07/2024 4:38 PM CDT) Anatomical Region Laterality Modality Chest Computed Tomogra phy 11/07/2024 4:38 PM CDT Impressions 11/07/2024 5:28 PM CDT IMPRESSION: Please see below. Exam: CT CHEST WO CONTRAST Date/Time of Exam: 11/07/2024 4:38 PM Reason For Exam: Pneumothorax, Pneumothorax Diagnosis: See Reason for Exam Technique: CT of the chest was performed without the administration of intravenous contrast. Findings: Comparison made to plain film chest 11/06/2024 and 10/30/2024. There is a small bore thoracostomy tube entering from right second airspace terminating within the right pleural space. There is a persistent large right pneumothorax which is likely shown interval increase compared to plain film approximately two hours earlier. There is partial atelectasis of the right lung there is a trace right pleural fluid component. There patchy groundglass opacities throughout the left upper lobe with thickness secondary pulmonary lobules consistent with pulmonary edema. No left-sided pneumothorax. The heart size is normal without pericardial effusion. There is calcification of the annulus. The thoracic aorta is nonaneurysmal. There are bilateral partially calcified thyroid nodules with a dominant left thyroid nodule measuring up to 1.8 x 2.5 cm. No pathologically enlarged thoracic lymph nodes. The upper abdomen demonstrates no acute findings. There is gas and myofascial planes right chest wall. No acute osseous abnormality. IMPRESSION: 1. Right thoracostomy tube in satisfactory position with large right pneumothorax without mediastinal shifting, in size shown increase since interval plain film approximately 2 hours earlier. 2. Partial atelectasis right lung. Trace right pleural fluid component. Mild pulmonary edema. 3. Multinodular goiter. Routine thyroid ultrasound recommended for risk stratification is nodules. The findings and/or imaging diagnoses in the above impression have been deemed a critical result by the interpreting radiologist and immediately reported as such to the ordering physician or appropriate licensed caregiver in accordance with current radiology department policy. Narrative Procedure Note Yasmany Romero MD - 11/07/2024 IMPRESSION: Please see below. Exam: CT CHEST WO CONTRAST Date/Time of Exam: 11/07/2024 4:38 PM Reason For Exam: Pneumothorax, Pneumothorax Diagnosis: See Reason for Exam Technique: CT of the chest was performed without the administration of intravenous contrast. Findings: Comparison made to plain film chest 11/06/2024 and 10/30/2024. There is a small bore thoracostomy tube entering from right second airspace terminating within the right pleural space. There is a persistent large right pneumothorax which is likely shown interval increase compared to plain film approximately two hours earlier. There is partial atelectasis of the right lung there is a trace right pleural fluid component. There patchy groundglass opacities throughout the left upper lobe with thickness secondary pulmonary lobules consistent with pulmonary edema. No left-sided pneumothorax. The heart size is normal without pericardial effusion. There is calcification of the annulus. The thoracic aorta is nonaneurysmal. There are bilateral partially calcified thyroid nodules with a dominant left thyroid nodule measuring up to 1.8 x 2.5 cm. No pathologically enlarged thoracic lymph nodes. The upper abdomen demonstrates no acute findings. There is gas and myofascial planes right chest wall. No acute osseous abnormality. IMPRESSION: 1. Right thoracostomy tube in satisfactory position with large right pneumothorax without mediastinal shifting, in size shown increase since interval plain film approximately 2 hours earlier. 2. Partial atelectasis right lung. Trace right pleural fluid component. Mild pulmonary edema. 3. Multinodular goiter. Routine thyroid ultrasound recommended for risk stratification is nodules. The findings and/or imaging diagnoses in the above impression have been deemed a critical result by the interpreting radiologist and immediately reported as such to the ordering physician or appropriate licensed caregiver in accordance with current radiology department policy. us Luis Fernando Chino MD CT ORDERABLES Final Result * CT HEAD WO CONTRAST (11/07/2024 4:37 PM CDT) Anatomical Region Laterality Modality Head Computed Tomogra phy 11/07/2024 4:37 PM CDT Impressions 11/07/2024 5:57 PM CDT IMPRESSION: Please see below. Exam: CT HEAD WO CONTRAST Date/Time of Exam: 11/07/2024 4:37 PM Reason For Exam: Mental status change, unknown cause Diagnosis: See Reason for Exam Technique: CT of the head was performed without the administration of intravenous contrast. Findings: COMPARISON: None The ventricles and subarachnoid spaces are normal in size and configuration. There is no midline shift or mass effect. There is no evidence of acute intracranial hemorrhage or extra-axial fluid collection. The anguaino white matter interfaces are maintained. The basal cisterns are patent. The mastoid air cells are well-aerated. Visualized paranasal sinuses are well aerated. There is a sebaceous cyst of the left frontal scalp measuring up to 0.7 x 1.4 cm. IMPRESSION: 1. No acute intracranial findings. Narrative Procedure Note Yasmany Romero MD - 11/07/2024 IMPRESSION: Please see below. Exam: CT HEAD WO CONTRAST Date/Time of Exam: 11/07/2024 4:37 PM Reason For Exam: Mental status change, unknown cause Diagnosis: See Reason for Exam Technique: CT of the head was performed without the administration of intravenous contrast. Findings: COMPARISON: None The ventricles and subarachnoid spaces are normal in size and configuration. There is no midline shift or mass effect. There is no evidence of acute intracranial hemorrhage or extra-axial fluid collection. The anguiano white matter interfaces are maintained. The basal cisterns are patent. The mastoid air cells are well-aerated. Visualized paranasal sinuses are well aerated. There is a sebaceous cyst of the left frontal scalp measuring up to 0.7 x 1.4 cm. IMPRESSION: 1. No acute intracranial findings. us Luis Fernando Chino MD CT ORDERABLES Final Result * PNEUMONIA PATHOGEN PCR PANEL (11/07/2024 3:01 PM CDT) Pathologist [facility] Pneumonia Pathogen PCR Panel NOT DETECTED No nucleic acids detected. 11/07/2024 5:02 PM CDT [facility] Sputum COUGHED SPUTUM SPECIMEN / Unknown Collection / Unknown 11/07/2024 3:01 PM CDT 11/07/2024 3:06 PM CDT Narrative [facility] - 11/07/2024 5:02 PM CDT NOTE: Per the artist color separation, this current lot of reagent may be insensitive for the full detection of adenoviruses. If adenovirus is within the differential diagnosis, the specimen may be submitted to a reference laboratory for further testing. If desired, order [id number] Lab Test, stating Adenovirus by PCR testing in the ordering comment and notify the Microbiology lab. A negative result does not exclude the possibility of infection. A semi-quantitative (copies/mL) result is provided for bacteria. This panel does not distinguish between nucleic acid from live or bacteria or virus. Culture is needed for recovery of bacterial isolates and antimicrobial susceptibility testing. The Film Array Pneumonia Pathogen PCR Panel is a multiplexed nucleic acid detection test for 33 targets of bacteria, viruses, and resistance markers in respiratory specimens that cause pneumonia. Bacteria: Acinetobacter calcoaceticus-baumannii complex Enterobacter cloacae complex Escherichia coli Haemophilus influenzae Klebsiella aerogenes Klebsiella oxytoca Klebsiella pneumoniae group Moraxella catarrhalis Proteus spp. Pseudomonas aeruginosa Serratia marcescens Staphylococcus aureus Streptococcus agalactiae Streptococcus pneumoniae Streptococcus pyogenes Atypical Bacteria: Chlamydia pneumoniae Legionella pneumophila Mycoplasma pneumoniae Viruses: Adenovirus Coronavirus (229E, OC43, HKU1, NL63) Human Metapneumovirus Human Rhinovirus/Enterovirus Influenza A Influenza B Parainfluenza Virus Respiratory Syncytial Virus Antimicrobial Resistance Genes: CTX-M IMP KPC NDM OXA-48-like VIM mecA/C and MREJ Luis Fernando Chino MD MICROBIOLOGY - GENERAL ORDERABLE S Final Result [facility] CLIA # [id number] [address] [place] [address] * SPUTUM CULTURE WITH GRAM STAIN (11/07/2024 3:01 PM CDT) CULTURE No pathogens isolated. Normal respiratory jenny present. 11/09/2024 9:20 AM CDT [facility] GRAM STAIN Smear contains </=10 squamous epithelial cells per low power field 11/09/2024 9:20 AM CDT [facility] GRAM STAIN >25 PMN WBC/LPF 9:20 AM CDT [facility] GRAM STAIN 4+ (Heavy) Gram positive coccobacilli 11/09/2024 9:20 AM CDT [facility] Sputum COUGHED SPUTUM SPECIMEN / Unknown Collection / Unknown 11/07/2024 3:01 PM CDT 11/07/2024 3:06 PM CDT Juaquin Obregon DO MICROBIOLOGY - GENERAL ORDER FRANCISCO Final Result [facility] CLIA # [id number] [address] [place] [id number] * ECHOCARDIOGRAM W/ CONTRAST AGENT (11/07/2024 1:00 PM CDT) EJECTION FRACTION 69 INTERFACE SYSTEM 11/07/2024 12:2 6 PM CDT Narrative INTERFACE SYSTEM - 11/07/2024 3:04 PM CDT [facility] Echocardiography Laboratory [address] [place] [id number] Transthoracic Echocardiography Patient: Alissa Asencio Study ID: ECHO COMPLETE - Gender: F : 1960 Age: 64 Room: [facility] Study Date: 11/07/2024 Pt Status: Inpatient Study Time: 12:26:02 PM CSN #: [id number] Ordering:Frdeeric Cooper Surgery Teacher: Shayla Manzano Indications and History: Preoperative assessment. Summary and Conclusion: - Left ventricle: The cavity size is normal. Wall thickness is increased in a pattern of mild LVH. Global systolic function is normal. The estimated ejection fraction is 60-65%. For Epic reporting: the left ventricular ejection fraction is 69% by biplane method of disks. No diagnostic regional wall motion abnormality identified. Diastolic function is indeterminate. - Right ventricle: The cavity size is at the upper limits of normal. Systolic function is normal. Systolic pressure is not obtained. - Left atrium: The atrium is mildly dilated. - Right atrium: The atrium is mildly dilated. - Mitral valve: The annulus is severely calcified. There is trace regurgitation. - Inferior vena cava: The IVC is dilated. Respirophasic diameter changes are blunted (< 50%), consistent with elevated central venous pressure. Comparison: Compared to the prior study, there has been no significant interval change. Procedure information: Comparison is made to the study of 04/21/2024. Study status: Routine. Procedure: A transthoracic echocardiogram was performed. Image quality was adequate. Scanning was performed from the parasternal, apical, subcostal, and suprasternal notch acoustic windows. Intravenous contrast (Definity) was administered. There were no complications. There were no contrast reactions. Study components: M-mode, 2D, complete spectral Doppler, and color Doppler. Height: 182.9cm. Height: 72in. Weight: 120.1kg. Weight: 264.8lb. BMI: 35.9kg/m^2. BSA: 2.51m^2. Blood pressure: 145/62 Study date: 11/07/2024. Study time: 12:26 PM. Location: Echo laboratory. Cardiac Anatomy: LEFT VENTRICLE: The cavity size is normal. Wall thickness is increased in a pattern of mild LVH. Global systolic function is normal. The estimated ejection fraction is 60-65%. For Epic reporting: the left ventricular ejection fraction is 69% by biplane method of disks. No diagnostic regional wall motion abnormality identified. Regional wall motion difficult to determine but improved with echo contrast. Diastolic function is indeterminate. RIGHT VENTRICLE: The cavity size is at the upper limits of normal. Systolic function is normal. Systolic pressure is not obtained. LEFT ATRIUM: The atrium is mildly dilated. RIGHT ATRIUM: The atrium is mildly dilated. ATRIAL SEPTUM: No obvious PFO or ASD identified by 2D imaging and color Doppler. AORTIC VALVE: The valve is trileaflet. The leaflets are thickened and mildly calcified. Mobility is not restricted. Velocity is minimally increased. There is no stenosis. There is no significant regurgitation. MITRAL VALVE: The annulus is severely calcified. Mobility is not restricted. No evidence for prolapse. There is no evidence for stenosis. There is trace regurgitation. TRICUSPID VALVE: Structurally normal valve. Mobility is unrestricted. There is no evidence for stenosis. There is trace regurgitation. PULMONIC VALVE: Not well visualized. The valve appears to be grossly normal. There is no evidence for stenosis. There is trace regurgitation. PERICARDIUM: A prominent pericardial fat pad is present. There is no pericardial effusion. AORTA: Aortic root: The root is not dilated. Aortic arch: The vessel is not dilated. Measurements Left ventricle Value Right ventricle Value NII, LAX 5.3 cm NII, LAX 3.3 cm ESD, LAX 3.3 cm NII 3.3 cm NII/bsa, LAX 2.1 cm/m^2 ESD/bsa, LAX 1.3 cm/m^2 Left atrium Value FS, LAX 37 % AP dim, ES 4.1 cm ESD major ax, A4C 6.5 cm AP dim index, ES 1.6 cm/m^2 ESD/bsa major ax, A4C 2.6 cm/m^2 SI dim, A4C 6.0 cm NII minor ax, A4C 6.5 cm Area ES, A4C 24 cm^2 NII/bsa minor ax, A4C 2.6 cm/m^2 Vol, S 97 ml NII major ax, A2C 8.5 cm Vol/bsa, S 39 ml/m^2 ESD major ax, A2C 6.5 cm Vol, ES, 1-p A4C 80 ml NII/bsa major ax, A2C 3.4 cm/m^2 Vol/bsa, ES, 1-p A4C 32 ml/m^2 ESD/bsa major ax, A2C 2.6 cm/m^2 Vol, ES, 1-p A2C 100 ml IVS, ED 1.2 cm Vol/bsa, ES, 1-p A2C 40 ml/m^2 ESD 3.3 cm Vol, ES, A/L 83 ml ESD/bsa 1.3 cm/m^2 Vol/bsa, ES, A/L 33 ml/m^2 PW, ED 1.2 cm IVS/PW, ED 0.97 Right atrium Value EDV, 1-p A2C 191 ml Area, ES 25 cm^2 ESV, 1-p A2C 127 ml Area, ES, A4C 25 cm^2 EF, 1-p A2C 66 % EDV/bsa, 1-p A2C 76 ml/m^2 Aortic valve Value ESV/bsa, 1-p A2C 50 ml/m^2 Peak v, S 152.94 cm/sec EDV, 1-p A4C 184 ml VTI, S 32.3 cm ESV, 1-p A4C 54 ml Mean grad, S 5 mm Hg EF, 1-p A4C 71 % Peak grad, S 9 mm Hg SV, 1-p A4C 129 ml LVOT/AV, VTI ratio 0.85 EDV/bsa, 1-p A4C 73 ml/m^2 MAURICIO, VTI 2.89 cm^2 ESV/bsa, 1-p A4C 22 ml/m^2 MAURICIO/bsa, VTI 1.15 cm^2/m^2 SV/bsa, 1-p A4C 52 ml/m^2 LVOT/AV, Vpeak ratio 0.74 EDV, 2-p 193 ml MAURICIO, Vmax 2.5 cm^2 ESV, 2-p 59 ml MAURICIO/bsa, Vmax 1 cm^2/m^2 EF, 2-p 69 % SV, 2-p 64 ml Mitral valve Value EDV/bsa, 2-p 77 ml/m^2 Peak E 121.97 cm/sec ESV/bsa, 2-p 23 ml/m^2 Peak A 109.57 cm/sec SV/bsa, 2-p 25.5 ml/m^2 Decel time 249 ms PHT 72 ms LVOT Value Peak grad, D 6 mm Hg Diam, S 2.1 cm Peak E/A ratio 1.11 Area 3.4 cm^2 MVA, PHT 3.04 cm^2 Peak bryan, S 112.6 cm/sec MVA/bsa, PHT 1.21 cm^2/m^2 VTI, S 27.4 cm Peak grad, S 5 mm Hg Ascending aorta Value SV 93 ml AAo AP diam, S 3.5 cm Qs 5.8 L/min AAo AP diam/bsa, S 1.4 cm/m^2 Qs/bsa 2.3 L/(min-m^2) SV/bsa 37 ml/m^2 Legend: (L) and (H) flower values outside specified reference range. [facility] are accredited with the [facility] Accreditation Commission - Echocardiography. Prepared and Electronically Authenticated Cristi Bueno Confirmed 11/07/2024 15:04 Procedure Note Cristi Bueno MD - 11/07/2024 [facility] Echocardi[facility] Laboratory [address] [place] [id number] Transthoracic Echocardiography Patient: Alissa Asencio Study ID: ECHO COMPLETE- Gender: F : 1960 Age: 64 Room: [facility] Study Date: 11/07/2024 Pt Status: Inpatient Study Time: 12:26:02 PM CSN #: [id number] Ordering:Frederic Cooper Surgery Teacher: Shayla Manzano Indications and History: Preoperative assessment. Summary and Conclusion: - Left ventricle: The cavity size is normal. Wall thickness is increasedin a pattern of mild LVH. Global systolic function is normal. The estimated ejection fraction is 60-65%. For Epic reporting: the left ventricular ejection fraction is 69% by biplane method of disks. No diagnosticregional wall motion abnormality identified. Diastolic function isindeterminate. - Right ventricle: The cavity size is at the upper limits of normal.Systolic function is normal. Systolic pressure is not obtained. - Left atrium: The atrium is mildly dilated. - Right atrium: The atrium is mildly dilated. - Mitral valve: The annulus is severely calcified. There is trace regurgitation. - Inferior vena cava: The IVC is dilated. Respirophasic diameter changesare blunted (< 50%), consistent with elevated central venous pressure. Comparison: Compared to the prior study, there has been no significant interval change. Procedure information: Comparison is made to the study of 04/21/2024.Study status: Routine. Procedure: A transthoracic echocardiogram wasperformed. Image quality was adequate. Scanning was performed from the parasternal, apical, subcostal, and suprasternal notch acoustic windows. Intravenous contrast (Definity) was administered. There were no complications. Therewere no contrast reactions. Study components: M-mode, 2D, complete spectral Doppler, and color Doppler. Height: 182.9cm. Height: 72in. Weight: 120.1kg. Weight: 264.8lb. BMI: 35.9kg/m^2. BSA: 2.51m^2. Blood pressure: 145/62 Study date: 11/07/2024. Study time: 12:26PM. Location: Echo laboratory. Cardiac Anatomy: LEFT VENTRICLE: The cavity size is normal. Wall thickness is increased alta pattern of mild LVH. Global systolic function is normal. The estimated ejection fraction is 60-65%. For Epic reporting: the left ventricularejection fraction is 69% by biplane method of disks. No diagnostic regional wallmotion abnormality identified. Regional wall motion difficult to determine but improved with echo contrast. Diastolic function is indeterminate. RIGHT VENTRICLE: The cavity size is at the upper limits of normal.Systolic function is normal. Systolic pressure is not obtained. LEFT ATRIUM: The atrium is mildly dilated. RIGHT ATRIUM: The atrium is mildly dilated. ATRIAL SEPTUM: No obvious PFO or ASD identified by 2D imaging and color Doppler. AORTIC VALVE: The valve is trileaflet. The leaflets are thickened andmildly calcified. Mobility is not restricted. Velocity is minimally increased.There is no stenosis. There is no significant regurgitation. MITRAL VALVE: The annulus is severely calcified. Mobility is notrestricted. No evidence for prolapse. There is no evidence for stenosis. There istrace regurgitation. TRICUSPID VALVE: Structurally normal valve. Mobility isunrestricted. There is no evidence for stenosis. There is trace regurgitation. PULMONIC VALVE: Not well visualized. The valve appears to be grosslynormal. There is no evidence for stenosis. There is trace regurgitation. PERICARDIUM: A prominent pericardial fat pad is present. There is no pericardial effusion. AORTA: Aortic root: The root is not dilated. Aortic arch: The vessel is not dilated. Measurements Left ventricle Value Right ventricle Value NII, LAX 5.3 cm NII, LAX 3.3cm ESD, LAX 3.3 cm NII 3.3cm NII/bsa, LAX 2.1 cm/m^2 ESD/bsa, LAX 1.3 cm/m^2 Left atrium Value FS, LAX 37 % AP dim, ES 4.1cm ESD major ax, A4C 6.5 cm AP dim index, ES 1.6cm/m^2 ESD/bsa major ax, A4C 2.6 cm/m^2 SI dim, A4C 6.0cm NII minor ax, A4C 6.5 cm Area ES, A4C 24cm^2 NII/bsa minor ax, A4C 2.6 cm/m^2 Vol, S 97ml NII major ax, A2C 8.5 cm Vol/bsa, S 39ml/m^2 ESD major ax, A2C 6.5 cm Vol, ES, 1-p A4C 80ml NII/bsa major ax, A2C 3.4 cm/m^2 Vol/bsa, ES, 1-p A4C 32ml/m^2 ESD/bsa major ax, A2C 2.6 cm/m^2 Vol, ES, 1-p A2C 100ml IVS, ED 1.2 cm Vol/bsa, ES, 1-p A2C 40ml/m^2 ESD 3.3 cm Vol, ES, A/L 83ml ESD/bsa 1.3 cm/m^2 Vol/bsa, ES, A/L 33ml/m^2 PW, ED 1.2 cm IVS/PW, ED 0.97 Right atrium Value EDV, 1-p A2C 191 ml Area, ES 25cm^2 ESV, 1-p A2C 127 ml Area, ES, A4C 25cm^2 EF, 1-p A2C 66 % EDV/bsa, 1-p A2C 76 ml/m^2 Aortic valve Value ESV/bsa, 1-p A2C 50 ml/m^2 Peak v, S 152.94cm/sec EDV, 1-p A4C 184 ml VTI, S 32.3cm ESV, 1-p A4C 54 ml Mean grad, S 5 mmHg EF, 1-p A4C 71 % Peak grad, S 9 mmHg SV, 1-p A4C 129 ml LVOT/AV, VTI ratio 0.85 EDV/bsa, 1-p A4C 73 ml/m^2 MAURICIO, VTI 2.89cm^2 ESV/bsa, 1-p A4C 22 ml/m^2 MAURICIO/bsa, VTI 1.15cm^2/m^2 SV/bsa, 1-p A4C 52 ml/m^2 LVOT/AV, Vpeak ratio 0.74 EDV, 2-p 193 ml MAURICIO, Vmax 2.5cm^2 ESV, 2-p 59 ml MAURICIO/bsa, Vmax 1cm^2/m^2 EF, 2-p 69 % SV, 2-p 64 ml Mitral valve Value EDV/bsa, 2-p 77 ml/m^2 Peak E 121.97cm/sec ESV/bsa, 2-p 23 ml/m^2 Peak A 109.57cm/sec SV/bsa, 2-p 25.5 ml/m^2 Decel time 249ms PHT 72ms LVOT Value Peak grad, D 6 mmHg Diam, S 2.1 cm Peak E/A ratio 1.11 Area 3.4 cm^2 MVA, PHT 3.04cm^2 Peak bryan, S 112.6 cm/sec MVA/bsa, PHT 1.21cm^2/m^2 VTI, S 27.4 cm Peak grad, S 5 mm Hg Ascending aorta Value SV 93 ml AAo AP diam, S 3.5cm Qs 5.8 L/min AAo AP diam/bsa, S 1.4cm/m^2 Qs/bsa 2.3 L/(min-m^2) SV/bsa 37 ml/m^2 Legend: (L) and (H) flower values outside specified reference range. [facility] are accredited with the[facility] Accreditation Commission - Echocardiography. Prepared and Electronically Authenticated Cristi Bueno Confirmed 11/07/2024 15:04 us Frederic Cooper DO US ORDERABLES Final Result Performing Organization Address City/[facility]/ZIP Co de Phone Number INTERFACE SYSTEM Refer to clinic/hospital department * EXTRA TUBE (URINE ANGUIANO) (11/07/2024 12:59 PM CDT) Urine URINE SPECIMEN OBTAINED BY CLEAN CATCH PROCEDURE / Unknown Collection / Unknown 11/07/2024 12:59 PM CDT 11/07/2024 12:59 PM CDT us Luis Fernando Chino MD URINE ORDERABLES Final Result Performing Organization Address City/[facility] Co de Phone Number [facility] CLIA # [id number] [address] [address] * AMMONIA LEVEL (11/07/2024 9:38 AM CDT) Pathologist [facility] AMMONIA 20.0 11.0 - 51.0 umol/L 11/07/2024 10:09 AM CDT [facility] Blood, venous Capillary / Unknown 11/07/2024 9:38 AM CDT 11/07/2024 9:43 AM CDT Luis Fernando Chino MD CHEMISTRY ORDERABLES Final Resul t Performing Organization Address [facility] Co de Phone Number [facility] CLIA # [id number] [address] [address] * POC LACTIC ACID (11/07/2024 8:56 AM CDT) LACTIC ACID POC 0.8 <=2.0 mmol/L 11/07/2024 8:56 AM CDT [facility] SPECIMEN SOURCE, GASES POC Arterial 11/07/2024 8:56 AM CDT [facility] PUNC SITE POC ART PUNCT 11/07/2024 8:56 AM T [facility] Blood 11/07/2024 8:56 AM CDT 11/07/2024 8:58 AM CDT Narrative [facility] - 11/07/2024 8:56 AM CDT References ranges displayed are for Arterial samples. us Luis Fernando Chino MD POINT OF CARE TESTING Final Resu lt [facility] CLIA # [id number] Formerly [facility] [address] * (ABNORMAL) BLOOD GAS ARTERIAL (11/07/2024 8:56 AM CDT) PH BLOOD POC 7.34(L) 7.35 - 7.45 11/07/2024 8:56 AM [facility] PCO2 POC 56(H) 35 - 45 mm Hg 11/07/2024 8:56 AM [facility] PO2 POC 70(L) 80 - 105 mm Hg 11/07/2024 8:56 AM [facility] HCO3 (CALC) POC 30(H) 22 - 26 mmol/L 11/07/2024 8:56 AM [facility] HEMOGLOBIN POC 14.7 12.0 - 18.0 g/dL 11/07/2024 8:56 AM [facility] BASE EXCESS POC 4(H) -2 - 3 mmol/L 11/07/2024 8:56 AM [facility] O2 SATURATION POC 94(L) 95 - 98 % 11/07/2024 8:56 AM [facility] SODIUM POC 131(L) 138 - 146 mmol/L 11/07/2024 8:56 AM [facility] POTASSIUM POC 5.0(H) 3.5 - 4.9 mmol/L 11/07/2024 8:56 AM [facility] HEMATOCRIT POC 44 38 - 51 % 11/07/2024 8:56 AM CDT [facility] PH TEMP CORRECT 7.34(L) 7.35 - 7.45 11/07/2024 8:56 AM CDT [facility] PCO2 TEMP CORRECT 56(H) 35 - 45 mm Hg 11/07/2024 8:56 AM CDT [facility] PO2 TEMP CORRECT 70(L) 80 - 105 mm Hg 11/07/2024 8:56 AM CDT [facility] SPECIMEN SOURCE, GASES POC Arterial 11/07/2024 8:56 AM CDT [facility] CALCIUM IONIZED POC 5.3(H) 4.8 - 5.2 mg/dL 11/07/2024 8:56 AM CDT [facility] TCO2 (CALC) POC 32(H) 23 - 27 mmol/L 11/07/2024 8:56 AM CDT [facility] PUNC SITE POC ART PUNCT 11/07/2024 8:56 AM CDT [facility] Blood, arterial 11/07/2024 8 :56 AM CDT 11/07/2024 8:58 AM CDT us Luis Fernando Chino MD ABG ORDERABLES Final Result [facility] # [id number] [address] [place] [address] * (ABNORMAL) PHOSPHORUS (11/07/2024 5:31 AM CDT) PHOSPHORUS 4.9(H) 2.5 - 4.5 mg/dL 11/07/2024 6:36 AM CDT [facility] Blood Venipuncture / Unknown 11/07/2024 5:31 AM CDT 11/07/2024 5:42 AM CDT us Juaquin Obregon DO CHEMISTRY ORDERABLES Final R esult Performing Organization Address [facility] Co de Phone Number [facility] CLIA # [id number] [address] [address] * (ABNORMAL) HEMOGLOBIN A1C (11/06/2024 11:25 PM CDT) HEMOGLOBIN A1C 8.6(H) <=5.6 % 11/07/2024 8:31 AM CDT [facility] EST. AVG GLUCOSE, A1C 200 mg/dL 11/07/2024 8:31 AM CDT [facility] Blood Venipuncture / Unknown 11/06/2024 11:25 PM CDT 11/07/2024 12:01 AM CDT Narrative [facility] - 11/07/2024 8:31 AM CDT HGB A1C INTERPRETATION NORMAL: <5.7% PRE-DIABETES: 5.7 - 6.4% DIABETES: 6.5% OR GREATER Juaquin Obregon DO CHEMISTRY ORDERABLES Final R esult Performing Organization Address [facility] Co de Phone Number [facility] CLIA # [id number] [address] [address] * (ABNORMAL) LIPID PANEL (04/21/2024 4:07 AM [facility]) CHOLESTEROL 122 <200 mg/dL 04/21/2024 6:52 AM [facility] TRIGLYCERIDE 127 <150 mg/dL 04/21/2024 6:52 AM [facility] HDL 35(L) 40 - 59 mg/dL 04/21/2024 6:52 AM [facility] LDL CALCULATED 62 <100 mg/dL 04/21/2024 6:52 AM [facility] NON-HDL CHOLESTEROL 87 <130 mg/dL 04/21/2024 6:52 AM [facility] Blood Venipuncture / Unknown 04/21/2024 4:07 AM [facility] 04/21/2024 4:26 AM [facility] Narrative [facility] - 04/21/2024 6:52 AM [facility] TOTAL CHOLESTEROL mg/dL Desirable <200 Borderline high [...] Diaz MD CHEMISTRY ORDERABLES Fi nal Result [facility] CLIA # [id number] Former[facility] [address] [place], [place] [address] * (ABNORMAL) MICROALBUMIN/CREATININE RATIO, RANDOM UR (01/11/2020 9:29 AM CDT) MICROALBUMIN, URINE 10.3 No Reference Range mg/dL 01/11/2020 10:30 AM T [facility] CREATININE, URINE 22.8(L) 29.0 - 226.0 mg/dL 01/11/2020 10:30 AM T [facility] Comment:Reference Range vari es with fluid intake and diet. MICROALBUMIN/ CREAT RATIO, UR 451.8(H) <25.0 mg/g 01/11/2020 10:30 AM [facility] Urine URINE SPECIMEN OBTAINED BY CLEAN CATCH PROCEDURE / Unknown Collection / Unknown 01/11/2020 9:29 AM CDT 01/11/2020 9:29 AM CDT Narrative [facility] - 01/11/2020 10:30 AM CDT Condition Microalbumin/Creat ratio Normal Males <17 Normal Females <25 Microalbuminuria Males 17-299 Microalbuminuria Females 25-299 Overt proteinuria >=300 us Mendez Reyes MD URINE ORDERABLES Final Resul t [facility] CLIA # [id number] [address] [place] [address] [facility] CLIA # [id number] [address] [place] [address] * MAMMO SCREEN BILAT W OR WO CAD (12/17/2018 1:44 PM CDT) Anatomical Region Laterality Modality Breast Bilateral Other Impressions 12/18/2018 9:58 AM CDT : Superficial mass inferior medially, anteriorly, on the left, will require additional evaluation. Patient will be contacted by the Breast Center to schedule the recommended follow-up appointment. [id number] Narrative 12/18/2018 9:58 AM CDT Bilateral Digital [...] by the Computer Aided Detection System (CAD), Mapori ImageChecker, Version 8.3. Procedure Note Shane Rodrigues [...] by the Computer Aided Detection System (CAD), Rocketicker, Version 8.3. IMPRESSION : Superficial mass inferior medially, anteriorly, on the left, will require additional evaluation. Patient will be contacted by the Breast Center to schedule the recommended follow-up appointment. [id number] Shaun Briones MD MAMMO ORDERABLES Final Re sult * ENDOSCOPY, COLON, SCREENING (08/03/2014 12:00 AM CDT) Marguerite Wade CUSTOMER EXPERIENCE ASSOCIATE GI PROCEDURE ORDERABLES Fin al Result from Last 3 Months or Most Recently Relevant to Health Maintenance Insurance [place] RX [employer] RX Member Subscriber Plan / Payer (Ef fective 2024-Present) Name:Alissa Asencio Relation to Subscriber:Self Name:Alissa Asencio Subscriber ID:Not on file Payer ID:Not on file Group ID:[id number] Type:RX Medicare Part D Address: [address] Advance Directives For more information, please contact: [phone] Documents on File Type Date Recorded 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
--- OUTSIDE RECORDS SUMMARY | 2025-01-25 16:35 | XMS_ITS | Encounter Summary ---
Author Organization [facility] Address [address] [place] [address] Care Team Providers Care Glue Spreader Name Role Phone Non-Staff, Physician Primary Care Provider Unava ilable Encounter Details Date Type Department Care Team (Latest Contact Info) Description 04/01/2019 Ancillary Orders [facility] Admitting [address] [place] [address] Marguerite Wade, COLLECTIONS PROFESSIONAL [address] [place] [phone] COPD with exacerbation (CMS/[facility]) Social History Tobacco Use Types Packs/Day Years Used Date Smoking Tobacco: Every Day Cigarettes 1.5 25 Smokeless Tobacco: Never Comments:1.5 packs Alcohol Use Standard Drinks/Week Comments No 0 (1 standard drink = 0.6 oz pur e alcohol) Comments No Sex and Gender Information Value Date Recorded Sex Assigned at Not on file 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 Exam: XR CHEST [...] IMPRESSION: Stable. Nothing active detected. Marguerite Wade COLLECTIONS PROFESSIONAL DIAGNOSTIC IMAGING ORDERABL ES Final Result documented in this encounter Visit Diagnoses Diagnosis COPD with exacerbation (CMS/HCC) Obstructive chronic bronchitis with exacerbation COPD with exacerbation (CMS/HCC) Obstructive chronic bronchitis with exacerbation documented in this encounter Care Teams Glue Spreader Relationship Specialty Start Date End Date Non-Staff, Physician NO ADDRESS ON FILE PCP - General 12/15/19 documented as of this encounter
--- OUTSIDE RECORDS SUMMARY | 2025-01-25 16:35 | XMS_ITS | Encounter Summary ---
Author Organization [facility] Address [address] [place] [address] Care Team Providers Care At Risk Specialist Name Role Phone Non-Staff, Physician Primary Care Provider Unava ilable Encounter Details Date Type Department Care Team (Latest Contact Info) Description 12/19/2018 Ancillary Orders [facility] [address] [address] [place] [address] Shaun Briones MD [address] [place] [phone] Inconclusive mammogram Social History Tobacco Use Types Packs/Day Years Used Date Smoking Tobacco: Every Day Cigarettes 1.5 25 Smokeless Tobacco: Never Comments:1.5 packs Alcohol Use Standard Drinks/Week Comments No 0 (1 standard drink = 0.6 oz pur e alcohol) Comments No Sex and Gender Information Value Date Recorded Sex Assigned at Not on file 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
--- OUTSIDE RECORDS SUMMARY | 2025-01-25 16:35 | XMS_ITS | Encounter Summary ---
Author Organization [facility] Address [address] [place] [address] Phone Care Team Providers Care Lean Manager Name Role Phone Marguerite Wade Primary Care Provider Reason for Visit * Reason Comments Med Refill Encounter Details Date Type Department Care Team (Late st Contact Info) Description 06/15/2021 Refill [facility] [address] [place] [address] Edwige Albarado WRAPPER OPERATOR [address] [place] [address] Social History Tobacco Use Types Packs/Day Years [...] on filedocumented in this encounter Care Teams Lean Manager Relationship Specialty Start Date End Date Marguerite Wade FNP [address] [place] [address] PCP - General Internal Medicine 07/16/18 documented as of this encounter
--- OUTSIDE RECORDS SUMMARY | 2025-01-25 16:35 | XMS_ITS | Encounter Summary ---
Author Organization [facility] Address [address] [place] [address] Care Team Providers Care Automation Engineering Manager Name Role Phone Non-Staff, Physician Primary Care Provider Unava ilable Encounter Details Date Type Department Care Team (Latest Contact Info) Description 07/21/2004 Outpatient Historical [facility] [address] [place] [address] Marguerite Wade, DIRECTOR OF DEVELOPMENT AND MARKETING [address] [place] [phone] Benign hypertension (Primary Dx); FLUID OVERLOAD Social History Tobacco Use Types Packs/Day Years Used Date Smoking Tobacco: Never Assessed Comments Unknown Sex and Gender Information Value Date Recorded Sex Assigned at Not on file 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
[2025-01-25 16:41] VITALS: BP 167/87
[2025-01-25 16:54] LABS: Acetaminophen 5.6 ug/mL (10-30); Alanine Aminotransferase 10 U/L (0-33); Albumin Level 4.2 g/dL (3.5-5.2); Alkaline Phosphatase 95 U/L (35-105); Anion Gap 17.2 (5-19); Aspartate Amino Transferase 10 U/L (0-32); Blood Urea Nitrogen 22 mg/dL (8-23); Calcium 9.8 mg/dL (8.5-10.5); Carbon Dioxide 26 mmol/L (22-29); Chloride 96 mmol/L (98-107); Creatinine Clr Calc Pharmacy 89.8482; Globulin 2.7 g/dL (1.3-4.6); Glucose 194 mg/dL (65-115); Osmolality Calculated 289 mOsm/kg (285-295); Potassium 4.2 mmol/L (3.5-5.1); Sodium 135 mmol/L (136-145); Total Protein 6.9 g/dL (6.6-8.7)
[2025-01-25 16:55] LABS: Alcohol Level < 10 mg/dL (0-10); Salicylate < 0.3 mg/dL (3-10)
--- NOTE | 2025-01-25 17:00 | PC.NURSE ---
96 hr rights reviewed with pt @1600 with assistance of [facility] security public safety officer Matt Dia. All education reviewed with pt at this time. Pt verbalized understanding to hold parameters. Pt copy left with pt. Pt declined wanting a drink to HS at this time. HS updated friend Beatrice in [place] at request of pt.
[2025-01-25 17:23] VITALS: PULSE 91; O2SAT 95
[2025-01-25 17:34] VITALS: BP 191/89; PULSE 66; RESP 16; TEMP 36.3; O2SAT 94
--- NOTE | 2025-01-25 18:25 | PC.NURSE ---
Pt. came in on a 96 hr hold from ER experiencing auditory hallucinations telling her to kill herself. Pt. stated she attempted to kill herself in October of this year by pills. Pt. has seen [facility] sinse she was 38 y/o. Sees Marina Peterson at [facility]. Pt. stated her significant other in March of 2024. Pt. says she gets very depressed and stays that way, says all she does is watch a little TV and text friends. Pt. was tearful when telling signee this. Pt. explained racing thoughts, and says that she is having a friend move in with her in about 3 weeks. Pt. says her medications are not working. Pt. says she is on 4 Lnc of oxygen at . Pt. has in home health services through [facility] to help her cook, clean and other things. Pt. says she sometimes does take THC Gummies to help with voices in her head and for pain. Says the last time she took a gummy was about 2 months ago.
[2025-01-25 20:03] VITALS: BP 184/92; PULSE 60; RESP 18; O2SAT 94
[2025-01-25] MEDS: lactulose oral liq 20 gm/30 mL UDC 30 GM PO (21:06)
[2025-01-25] MEDS: ATORVASTATIN 10 MG TABLET 20 MG PO (21:07)
[2025-01-25] MEDS: quetiapine XR (24HR) 50 mg Tablet 200 MG PO (21:07)
[2025-01-26] VITALS (7 sets, daily range): BP systolic 125–155; BP diastolic 62–83; PULSE 54–84; RESP 16–18; TEMP 36.6–37.3; O2SAT 90–98
[2025-01-26] MEDS: lactulose oral liq 20 gm/30 mL UDC 30 GM PO (10:36)
[2025-01-26] MEDS: metoprolol succinate ER (24 HR) 25 mg Tablet PO (10:37)
[2025-01-26] MEDS: insulin glargine 100 units/1 mL 65 UNIT SUBCUT (10:38)
--- NOTE | 2025-01-26 13:23 | W.PM.NPUH&PS ---
Providers/Chief Complaint Admitting Physician: Brandyn Lujan MD Primary Care Provider: LILLIE Pleitez Chief Complaint: , [facility] sent HPI NPU History of Present Illness Alissa Beck is a 64 year old female who presented to the emergency department with the following report: Chief Complaint: Psychiatric Symptoms Stated Complaint: SI, [facility] Time Seen by Provider: 01/25/25 15:26 Source: patient Mode of arrival: ambulatory Limitations: no limitations History of Present Illness: Patient is a 64-year-old female presents to ED today stating she is suicidal. She states she chronically has thoughts of wanting to fall asleep and never wake up however over the past 2 to 3 days she states she is now having active suicidal thoughts. She states the other day she was having voices in her head telling her to kill herself. She reports a previous suicide attempt just a few months ago by pill overdose. She does follow-up with [facility] but feels her medications are no longer working. complaint: suicidal ideation and feels depressed Onset (ago): day(s) Duration: constant History of same: Yes Relieving factors: none Exacerbating factors: none Associated psychiatric symptoms: depression and suicidal ideation Associated symptoms: Reports auditory hallucinations, depression and suicidal ideation; Deny homicidal ideation Treatments prior to arrival: none If self harm: admits thoughts of self harm. She was admitted to the neuropsychiatric unit for definitive treatment of those issues. She is known to [facility] psychiatry through outpatient services going back to 2004. No inpatient hospitalizations noted. At her last outpatient med management check was in November of this year and an excerpt of that note is included below for context and history. Her UDS was positive for cannabis and benzodiazepines and she presented today reporting: Chief complaint Experiencing severe depression with auditory hallucinations instructing self-harm. History of the present complaint Reports feeling really depressed for a while, with episodes of being really wired, consistent with a longstanding diagnosis of bipolar disorder, described as bipolar 2 for forever. States that the original diagnosis was schizoaffective disorder, but believes it has downgraded a little bit over the years. Describes a recent and distressing experience while sitting at a table, hearing a voice inside the head saying, Hey, kill yourself. Emphasizes never having experienced this type of auditory command hallucination before, although has previously experienced planning and thinking about suicide. The suddenness and nature of the voice was frightening, leading to concerns about what might happen if it recurs during periods of severe depression or if it escalates to commands to harm others. This prompted seeking help. Describes feeling mad and tired of crying every day. Reports anxiety and emotional exhaustion. After the incident with the voice, contacted a crisis line and felt dismissed by the responder, which led to feeling shaking and unsupported. Subsequently, friends encouraged reaching out again, resulting in the current hospital visit. Reports a significant loss, with a significant other passing away in March 2024. States that while grieving and having a hard time with the loss, the severity of symptoms has increased beyond previous experiences. Notes a worsening of mental health symptoms over the past three months, coinciding with the initiation of a new medication for COPD, though unable to specify the name. Expresses uncertainty about whether the medication is directly related to the worsening symptoms but acknowledges a temporal association. Describes a history of psychiatric hospitalization at age 38, with no inpatient admissions since then. Reports extensive outpatient mental health treatment since at least 2004, with multiple medication trials. Mentions taking an antipsychotic at home, 50 mg, and being instructed to increase to 200 mg, but is unsure of the medication name. Also reports use of trazodone and Zyprexa in the past. Reports tobacco use since age 9, currently smoking approximately half a pack per day. Describes a history of lung collapse and acknowledges difficulty quitting smoking. Reports occasional cannabis use, previously used more frequently for pain management after a lung procedure, and describes a period of dependence on cannabis, but denies current use of other drugs. Denies current suicidal ideation or feeling driven to kill self, except for the single episode described above. Expresses frustration with friends not responding and feeling upset by lack of support. Mental health history Known diagnosis of bipolar disorder for several decades with episodes of depression and intermittent periods of feeling ?wired.? Engaged in outpatient psychiatric services within this system since at least 2004. Reported one prior psychiatric hospitalization at age 38 in 2004. Trialed multiple psychotropic medications over the years, currently on an antipsychotic titrated from 50 mg to 200 mg and multiple other mood-stabilizing agents. No documented prior suicide attempts but endorsed planning and ideation; recent emergence of an intrusive command auditory hallucination prompting current evaluation. Social history Reports smoking since age 9, currently about half a pack per day. Occasional cannabis use, less than once a month, with prior use for pain management after lung surgery. Denies use of other illicit substances. Significant other in March 2024. Per her 12/07/2024 [facility] outpatient med management visit: Time In: 14:25 Date of Service: 12/07/24 Setting: Office Visit Intake Is patient being treated for pain today?: No Have you been seen by your primary care provider or SCORER HELPER in the past 12 months?: Yes Allergies Sulfa (Sulfonamide Antibiotics) Allergy (Unknown, Verified 12/07/24 14:38) Unknownquinine (From Quine) Allergy (Verified 12/07/24 14:38) unknownropinirole (From Requip) Allergy (Verified 12/07/24 14:38) Unknown Home Medications - Last Reconciled 12/07/24 by Kimmie Daniels [[facility] As directed] acetaminophen 325 mg PO QID PRN [afflovest As directed] albuterol sulfate 2.5 mg inhalation Q6H PRN albuterol sulfate 90 mcg/actuation 2 puffs inhalation Q8H PRN atorvastatin 20 mg PO BEDTIME [back brace As directed] blood sugar diagnostic (Blood Glucose Test strips) As directed blood-glucose meter (Blood Glucose Monitoring kit) As directed blood-glucose sensor (FreeStyle Jack 3 Plus Sensor device) CHANGE EVERY 15 DAYS blood-glucose,spout positioner,cont (FreeStyle Jack 3 Lawrence) As directed budesonide-formoterol 160-4.5 mcg/actuation 2 puffs inhalation BID bupropion HCl XL (Wellbutrin XL) 300 mg PO QAM cholecalciferol (vitamin D3) 50,000 units PO Q7D clonazepam 0.5 mg PO BID PRN CPAP (Standard Cpap) As directed diphenhydramine HCl (Benadryl Allergy) 25 mg PO TID PRN ensifentrine (Ohtuvayre) 2.5 mL inhalation BID flash glucose scanning reader (CodeEvalStyle Jack 2 Lawrence) As directed flash glucose sensor (FreeStyle Jack 2 Sensor kit) pt having hypoglycemia flecainide 100 mg PO Q12H fluticasone propionate 50 mcg/actuation (Flonase Allergy Relief) 2 sprays intranasal DAILY PRN furosemide 40 mg PO BID hydroxychloroquine 200 mg PO BID Held on 06/05/24. Instructions: Resume on 06/16/24.ibuprofen 200 mg PO Q6H PRN insulin glargine (Lantus Solostar U-100 Insulin) 65 units SUBCUT QAM insulin software implementation project manager cart,aut,G6/7,cntr (Omnipod 5 G6-G7 Intro Kit(Gen 5) subcutaneous cartridge and controller) As directed insulin pump cart,auto,BT,G6/7 (Omnipod 5 G6-G7 Pods (Gen 5) subcutaneous cartridge) As directed ipratropium-albuterol 20-100 mcg/actuation (Combivent Respimat) INHALE 1 PUFF BY MOUTH EVERY 6 HOURS NEEDED FOR SHORTNESS OF BREATH isosorbide mononitrate ER 30 mg PO DAILY lactulose (Constulose) 30 grams (45 mL) PO TID metoprolol succinate ER 25 mg PO DAILY modafinil 200 mg PO QAM [nebulizer and supplies As directed] nitroglycerin (Nitrostat) 0.4 mg sublingual Q5M PRN ondansetron HCl 4 mg PO DAILY PRN 7 days oxygen-air delivery systems As directed pen needle, diabetic (BD Ultra-Fine Corine Pen Needle) use as directed for insulin injections twice daily pilocarpine HCl 5 mg PO TID prednisone 5 mg PO DAILY quetiapine (Seroquel) 50 mg PO .HS rivaroxaban (Xarelto) 20 mg PO DAILY sertraline (Zoloft) 200 mg PO QAM umeclidinium 62.5 mcg/actuation (Incruse Ellipta) 1 inh inhalation DAILY zolpidem (Ambien) 5 mg PO BEDTIME PRN Items Completed Today Items Completed Today: Medications Reconciliation Nurse Completing Intake [facility] Time Out Time Out: 14:33 Vital Signs 09/18/2511:56 11/06/2512:19 12/04/2512:07 12/07/2513:37 Height 5 ft 10 in 6 ft 6 ft 6 ft Weight 259 lb 6 oz 263 lb BMI 35.2 35.6 BP 130/80 135/71 Blood Pressure Location Lt brachial Lt brachial Position Sitting Sitting Respiration 18 16 Pulse 55 L 56 L Pulse Source Pulse Oximeter Monitor Temp 97.8 F 98.3 F Temp Source Tympanic Oral Pulse Oximetry (%) 96 Oxygen Delivery Method Room Air Risks Date Date of last Risks: 12/07/24 Suicide Risk Assessment Little interest or pleasure in doing things: not at all Feeling down, depressed, or hopeless: not at all PHQ-2 Score: 0 Total (If greater than 3 please do full PHQ-9): No Have you had suicidal thoughts?: Not At All Do you ever wish you weren't alive anymore?: Not At All Total Score: 0 Patient score 3 or greater or had suicidal thoughts?: No HIV/HEP C Screening Would you like to do a HIV screen to see where your risks level is?: No Would you like to do a Hepatitis C screen to see where your risks level is?: No Are you referring the client to care coordination today?: No Assessments Fall Risk 1. Have you fallen in the last year?: No 2. Do you use a cane, walker, wheelchair, or crutch?: No 3. Do you lose your balance, feel confused, or dizzy?: No [facility] Medical History (Updated 12/07/24 @ 14:33 by Belem Peña [facility]) Generalized anxiety disorder Sleep apnea Primary Sjogren's syndrome Lower extremity weakness Positive AMI (antinuclear antibody) Disorders of diaphragm Atelectasis of both lungs CHF (congestive heart failure), NYHA class III Drug-induced myopathy Recurrent pneumonia Emphysema lung Encephalopathy acute Acute and chronic respiratory failure with hypercapnia UTI (urinary tract infection) due to Enterococcus Excessive daytime sleepiness Diabetes type 2, controlled Insomnia Gross hematuria UTI (urinary tract infection) Psychiatric care Essential (primary) hypertension Chronic obstructive pulmonary disease with (acute) exacerbation Polyneuropathy, unspecified Callus Porokeratosis PVD (peripheral vascular disease) Shortness of Breath Bilateral leg edema Angina pectoris 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 with no history of malignant neoplasm AF (paroxysmal atrial fibrillation) Hypertension Tobacco abuse disorder Uncontrolled type 2 diabetes mellitus with polyneuropathy Acute DM type 2 causing complication Cannabis dependence, uncomplicated Nicotine dependence, cigarettes, with other nicotine-induced disorders Bipolar II disorder Post-traumatic stress disorder, chronic Surgical History H/O chest tube placement History of hysterectomy History of cholecystectomy History of appendectomy History of hernia repair Family History Father , AT AGE 21 Gunshot woundMother , AT AGE 61 CAD (coronary artery disease)Other Cancer Diabetes Stroke Social History Smoking and tobacco/nicotine status: current every day tobacco/nicotine user (1 pack aday) cigarettes Packs smoked per day: 1.5 Years cigarettes smoked: 52 [ Other cigarette details: Started at age 10] Second hand smoke exposure: Yes Alcohol intake: current Alcohol intake frequency: holidays/special occasions only Alcohol type: other Substance/Drug Use: former Date of last use: 2020 Adopted: No Caregiver/support person: No Lives independently: Yes Household members: significant other Housing: Manufactured/Mobile home Marital status: Life Partner Number of children: 0 Number of grandchildren: 0 Highest education level completed: Some College, No Degree service: No Current occupational status: disabled 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 Current occupational exposures/hazards: No Pets and animals: Yes (3 dogs) Pets & animals: dog(s) Leisure activites: fishing and other Leisure activities details: sewing, writing, gardening Sexually active: Yes How many partners: 1 Do you think of yourself as: Lesbian/Gautam/Homosexual Current gender identity: Female Latha/Spiritism: Yarsanism Special latha needs: No Agree to transfusion: Yes Female Reproductive History Para: 0 Spontaneous abortions: No Dietary Habits Caffeine: Yes Caffeine intake frequency: carbonated beverages, coffee and tea Number of tea servings: 1 Psychiatry SOAP Note Diagnosis 1. Post-traumatic stress disorder, chronic: Status: Acute 2. Bipolar II disorder: Status: Acute 3. Nicotine dependence, cigarettes, with other nicotine-induced disorders: Status: Chronic 4. Generalized anxiety disorder: Status: AcutePsychiatry SOAP Note Time In: 14:30 Time Out: 15:00 Subjective Subjective: Alissa is a 64-year-old female, who presents to [facility] for medication management and follow up for PTSD, bipolar 2, nicotine dependence. She was last seen September 17, 2024. The patient is a 64-year-old female who presents with ongoing mental health concerns, primarily centered around anxiety, depression, and disturbances in sleep. She reports having been previously prescribed medication for sleep which was discontinued due to involuntary mouth movements, though she notes uncertainty whether these movements were medication-induced or anxiety-related. The last time the matter was discussed was on September 17, where it was reported that she was sleeping well. Subsequently, she has resumed the medication as she struggled with insomnia. She notes grinding her teeth occasionally, associating it with anxiety and bruxism. The patient has a history of pneumothorax, experiencing multiple episodes, with the latest requiring an eight-day hospitalization where a surgical intervention was performed. The experience was described as traumatic, particularly due to painful procedural elements such as insertion of a chest tube. During this hospitalization, she reported incidents where her heart would temporarily cease functioning, necessitating medication to stabilize her heartbeat. The patient expresses frustration with the number of medical appointments and struggles to keep track of them effectively. She admits to experiencing memory lapses and attributes this to either stress or aging. Despite the memory concerns, she resists the idea of a retirement placement. In the context of personal relationships, she cites being in contact with supportive friends, albeit she feels her network has constraints due to their own life responsibilities. Concerning her mood, there are ongoing elements of grief following the loss of her partner of 45 years. She describes her experience with depression as fluctuating, having periods of acceptance and other times when she's overwhelmed by grief. She felt initially in denial about her emotions but reports gradual improvement in her emotional processing. Current pharmacologic regimen includes Seroquel and Ambien, both of which she utilizes to facilitate sleep. She intermittently uses Provigil to combat fatigue, generally four out of seven days depending on her energy levels. The patient denies current suicidal ideation but acknowledges a past period where such thoughts were present, though they have since resolved. She articulates awareness that self-harm is not a viable solution. No homicidal ideation, self-injury behaviors, or domestic violence situations are reported or suggested during this visit. Mood: Mood is pretty good. Depression is low. Sleep: States she restarted the Seroquel as she was struggling with sleep. Denies involuntary movements today. Appetite: Adequate Level of energy: Adequate Level of anxiety: Anxiety comes and goes. Today she reports it is fairly manageable. Ability to do ADLs: Independent Frightening/uncomfortable/or racing thoughts: Denies Thoughts of , suicide, or violence towards others: Denies Hearing voices or seeing hallucinations/visions: Denies ROS - Psychiatric: Reports anxiety, depression, forgetfulness, memory lapses, and feelings of loneliness. Denies current suicidal ideation. - Neurological: Reports involuntary mouth movements and teeth grinding. - Respiratory: Reports history of recurrent pneumothorax. - Cardiovascular: Reports episodes of cardiac arrhythmia. Objective Objective: Alert and oriented to person place and time. Patient describes mood as pretty good. Affect is euthymic. Speech is normal rate, rhythm, and volume. Thought process is logical and organized. No hallucinatory activity noted. Currently denies thoughts of harming self and others. Judgment and insight are intact. Memory is intact for recent and remote events. Attention and concentration are within normal limits. Casually dressed and well-groomed. She wears jeans and a T-shirt. Behavior is appropriate. Makes direct eye contact. Fund of knowledge is estimated to be average. Gait is slow, has difficulty going from sitting to standing. Assessment & Plan Assessment: Alissa reports she is doing well today. Plan: Continue Ambien 5 mg at bedtime as needed for sleep Continue Wellbutrin XL 300 mg daily Continue Zoloft 200 mg daily for anxiety and depression Continue Seroquel 50 mg at bedtime for sleep and depression Continue clonazepam 0.5 mg up to twice daily as needed for severe anxiety. Continue Provigil 200 mg daily Prescription refills are sent to [facility] in [place] Follow-up in 8 weeks.? Alissa instructed if symptoms worsen or the need to be seen sooner to call the clinic for an earlier appointment. Continue individual psychotherapy and case management Meds NPU Home Medications ?Medication ?Instructions ?Recorded ?Confirmed ?Last Taken ?Type blood sugar diagnostic (Blood #100 ea 06/30/19 01/25/25 Unknown Rx Glucose Test strips) blood-glucose meter (Blood Glucose #1 ea 01/22/20 01/25/25 Unknown Rx Monitoring kit) flash glucose scanning reader #1 ea 08/01/20 01/25/25 Unknown Rx (FreeStyle Jack 2 Lawrence) flash glucose sensor (FreeStyle #2 ea 08/01/20 01/25/25 Unknown Rx Jack 2 Sensor kit) oxygen-air delivery systems 01/17/22 01/25/25 Unknown History pen needle, diabetic 32 gauge x #100 ea 02/15/22 01/25/25 Unknown Rx 5/32 (BD Ultra-Fine Corine Pen Needle) acetaminophen 325 mg tablet 325 mg PO QID PRN Pain 11/19/22 01/25/25 Unknown History ibuprofen 200 mg tablet 200 mg PO Q6H PRN Pain 11/19/22 01/25/25 Unknown History nebulizer and supplies #1 ea 02/14/23 01/25/25 Unknown Rx afflovest #1 ea 02/26/23 01/25/25 Unknown Rx back brace #1 ea 04/15/23 01/25/25 Unknown Rx [facility] #1 ea 06/18/23 01/25/25 Unknown Rx CPAP (Standard Cpap) 08/07/23 01/25/25 Unknown History pilocarpine HCl 5 mg tablet 5 mg PO TID #90 tabs 12/18/23 01/25/25 11/05/24 Rx hydroxychloroquine 200 mg tablet 200 mg PO BID #180 tabs 03/16/24 01/25/25 01/25/25 Rx Held on 06/05/24. Instructions: Resume on 06/16/24. ensifentrine 3 mg/2.5 mL 2.5 ml inhalation BID 11/06/24 01/25/25 01/25/25 History suspension for nebulization (Ohtuvayre) insulin pump cart,auto,BT,G6/7 #5 ea 11/17/24 01/25/25 Unknown Rx (Omnipod 5 G6-G7 Pods (Gen 5) subcutaneous cartridge) insulin pump cartridge,auto #1 ea 11/17/24 01/25/25 Unknown Rx dose,BT,G6/G7 with controller subcutaneous (Omnipod 5 G6-G7 Intro Kit(Gen 5) subcutaneous cartridge and controller) flecainide 100 mg tablet 100 mg PO Q12H #60 tabs 12/04/24 01/25/25 01/25/25 Rx bupropion HCl 300 mg 24 hr tablet, 300 mg PO QAM #30 tabs 12/07/24 01/25/25 01/25/25 Rx extended release (Wellbutrin XL) zolpidem 5 mg tablet (Ambien) 5 mg PO BEDTIME PRN sleep #30 tabs 12/07/24 01/25/25 01/24/25 Rx blood-glucose sensor (FreeStyle #6 ea 01/04/25 01/25/25 Unknown Rx Jack 2 Plus Sensor device) clonazepam 0.5 mg tablet 0.5 mg PO BID PRN anxiety #60 tabs 01/05/25 01/25/25 Unknown Rx flash glucose scanning reader #1 ea 01/06/25 01/25/25 Unknown Rx (FreeStyle Jack 2 Lawrence) insulin pump cart,auto,BT,G6/L #5 ea 01/07/25 01/25/25 Unknown Rx (Omnipod 5 (G6/Jack 2 Plus) subcutaneous cartridge) insulin pump cartridge,auto #1 ea 01/07/25 01/25/25 Unknown Rx dose,BT,G6/L2 with controller subcutaneous (Omnipod 5 Intro Kit(G6/[id number]) subcutaneous cartridge) insulin glargine 100 unit/mL (3 65 unit (0.65 mL) SUBCUT QAM #45 mL 01/18/25 01/25/25 01/25/25 Rx mL) subcutaneous pen (Lantus Solostar U-100 Insulin) insulin lispro 100 unit/mL 20 unit (0.2 mL) SUBCUT TID #30 mL 01/18/25 01/25/25 01/25/25 Rx subcutaneous pen (Humalog KwikPen (U-100) Insulin) tirzepatide 2.5 mg/0.5 mL 2.5 mg (0.5 mL) SUBCUT Q7D 1 month 01/19/25 01/25/25 01/18/25 Rx subcutaneous pen injector #2.5 mL (Kali) albuterol sulfate 90 mcg/actuation 2 puff inhalation Q8H PRN 01/25/25 01/25/25 Unknown History aerosol inhaler Shortness Of Breath Or Wheezing atorvastatin 20 mg tablet 20 mg PO BEDTIME 01/25/25 01/25/25 01/24/25 History budesonide-formoterol HFA 160 2 puff inhalation BID 01/25/25 01/25/25 01/25/25 History mcg-4.5 mcg/actuation aerosol inhaler cholecalciferol (vitamin D3) 1,250 50,000 unit PO Q7D 01/25/25 01/25/25 01/23/25 History mcg (50,000 unit) capsule ipratropium 20 mcg-albuterol 100 1 puff inhalation Q6H PRN 01/25/25 01/25/25 Unknown History mcg/actuation mist for inhalation Shortness Of Breath (Combivent Respimat) isosorbide mononitrate 30 mg 30 mg PO DAILY #90 tabs 01/25/25 01/25/25 01/25/25 Rx tablet,extended release 24 hr lactulose 10 gram/15 mL oral 30 g PO TID 01/25/25 01/25/25 Unknown History solution (Constulose) metoprolol succinate 25 mg 25 mg PO DAILY 01/25/25 01/25/25 Unknown History tablet,extended release 24 hr quetiapine 200 mg tablet,extended 200 mg PO DAILY 01/25/25 01/25/25 Unknown History release 24 hr (Seroquel XR) umeclidinium 62.5 mcg/actuation 1 inh inhalation DAILY 01/25/25 01/25/25 Unknown History blister powder for inhalation (Incruse Ellipta) Allergies Allergy/AdvReac Type Severity Reaction Status Date / Time Sulfa (Sulfonamide Allergy Unknown Unknown Verified 12/28/24 13:06 Antibiotics) Alpha-Gal Allergy Unknown Verified 01/25/25 19:03 ([id number]-0,3-Gala quinine (From Quine) Allergy unknown Verified 12/28/24 13:06 ropinirole (From Requip) Allergy Unknown Verified 12/28/24 13:06 PFSH NPU PFSH: Medical History (Updated 01/25/25 @ 17:11 by MONSTER Mary) Generalized anxiety disorder Sleep apnea Primary Sjogren's syndrome Lower extremity weakness Positive AMI (antinuclear antibody) Disorders of diaphragm Atelectasis of both lungs CHF (congestive heart failure), NYHA class III Drug-induced myopathy Recurrent pneumonia Emphysema lung Encephalopathy acute Acute and chronic respiratory failure with hypercapnia UTI (urinary tract infection) due to Enterococcus Excessive daytime sleepiness Diabetes type 2, controlled Insomnia Gross hematuria UTI (urinary tract infection) Psychiatric care Essential (primary) hypertension Chronic obstructive pulmonary disease with (acute) exacerbation Polyneuropathy, unspecified Callus Porokeratosis PVD (peripheral vascular disease) Shortness of Breath Bilateral leg edema Angina pectoris 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 with no history of malignant neoplasm AF (paroxysmal atrial fibrillation) Hypertension Tobacco abuse disorder Uncontrolled type 2 diabetes mellitus with polyneuropathy Acute DM type 2 causing complication Cannabis dependence, uncomplicated Nicotine dependence, cigarettes, with other nicotine-induced disorders Bipolar II disorder Post-traumatic stress disorder, chronic Surgical History H/O chest tube placement History of hysterectomy History of cholecystectomy History of appendectomy History of hernia repair Family History Father , AT AGE 21 Gunshot wound Mother , AT AGE 61 CAD (coronary artery disease) Other Cancer Diabetes Stroke Social History Smoking and tobacco/nicotine status: current every day tobacco/nicotine user cigarettes Packs smoked per day: 1.5 Years cigarettes smoked: 52 [ Other cigarette details: Started at age 10] Second hand smoke exposure: Yes Alcohol intake: current Alcohol intake frequency: holidays/special occasions only Alcohol type: other Substance/Drug Use: former Date of last use: 2020 Adopted: No Caregiver/support person: No Lives independently: Yes Household members: significant other Housing: Manufactured/Mobile home Marital status: Life Partner Number of children: 0 Number of grandchildren: 0 Highest education level completed: Some College, No Degree service: No Current occupational status: disabled 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 Current occupational exposures/hazards: No Pets and animals: Yes (3 dogs) Pets & animals: dog(s) Leisure activites: fishing and other Leisure activities details: sewing, writing, gardening Sexually active: Yes How many partners: 1 Do you think of yourself as: Lesbian/Gautam/Homosexual Current gender identity: Female Latha/Spiritism: Yarsanism Special latha needs: No Agree to transfusion: Yes Female Reproductive History: Para: 0 Spontaneous abortions: No Mental Status Exam MSE Comments: This is an obese older white female looking older than her stated age with limited grooming but appropriate eye contact. No abnormal movements except for mild psychomotor retardation and significant unsteadiness of gait with wide-based gait and lack of sturdiness. Cooperative with exam in mild to moderate distress. Speech was slightly decreased rate normal volume. Mood described as struggling recently, affect congruent and slightly subdued. Thought process organized. Thought content: Patient endorsed having no active suicidal or homicidal ideation, there are no delusions reported or noted, she endorsed some auditory but denied visual hallucinations. Reports hearing a voice inside their head saying kill yourself, which was a new and frightening experience. Expressed concern about the possibility of the voice telling them to harm others. Acknowledges having anxiety and feeling really depressed, with a significant stressor being the passing of their significant other in March. Additionally, there is concern about the potential exacerbation of mental health issues due to a new medication for COPD. Attention and concentration appeared intact and memory was mostly reliable but none were formally tested. She is alert and oriented x 3. Insight and judgment appeared fair impulse control impaired. Vitals/I&O/Wt Last Vital Signs Temp 99.2 F 01/26/25 13:50 Pulse 62 01/26/25 16:00 Resp 18 01/26/25 16:00 BP 125/83 01/26/25 13:50 Pulse Ox 96 01/26/25 16:00 O2 Del Method Room Air 01/26/25 16:00 O2 Flow Rate 4 01/26/25 06:00 Weight last 48 hrs Weight 115.666 kg Data NPU 01/25/25 16:16 01/25/25 16:16 A&P Assessment and plan 1. Post-traumatic stress disorder, chronic: 2. Bipolar II disorder: 3. Cannabis dependence, uncomplicated: 4. Generalized anxiety disorder: 5. Suicidal ideation: 6. Bereavement: Plan: This is a 64-year-old white female with an extensive mental health history inpatient and outpatient with no inpatient treatment for over 2 decades. She was somewhat ambiguous about how things got worse. She reports recent increase struggles with depression which she had not been fully open with her outpatient provider about and then she found herself overwhelmed when she had a intense thought suggested that she should kill herself come to mind. She is also on a medication called Ensifentrine that carries a warning for worsening mental health conditions in relation to this medication. Longtime history of bipolar disorder II with current depressive episode. Recent onset of internal command auditory hallucination instructing self-harm. Anxiety. Possible exacerbation of psychiatric symptoms related to recent initiation of a phosphodiesterase inhibitor for pulmonary disease. Plan Reviewed current medications and assessed for possible adjustments to address worsening depression. Will reach out to the medical team to discuss medication management and potential changes. Medication list to be reviewed and decisions regarding modifications to be made in collaboration with the medical provider. 1. Continue current medication. Will consider increasing Wellbutrin XL to 450 mg p.o. daily versus attempting a different medication. 2. Continue every 15 minute checks for safety. 3. Encourage individual, group and milieu therapies. 4. Obtain collateral information. Including speak to outpatient medication provider. 5. Observe against the backdrop of the 96-hour hold. PDMP PDMP Reviewed: Not Reviewed Involuntary Hold Information Hold Status: Legal Status: 96 Hour Hold Date/Time Hold Expires: 01/29/25 @ 1540 Attestations NPU Medical Necessity Statement*: Inpatient hospitalization is medically necessary and the clinically appropriate intervention at this time. We will monitor/initiate medications and make changes as indicated. He will be in the hospital for over 2 midnights. Likely length of stay 4 to 6 days Coding Level of Care Code Acute Code for g Fwd Diagnoses Post-traumatic stress disorder, chronic F43.12 Bipolar II disorder F31.81 Cannabis dependence, uncomplicated F12.20 Generalized anxiety disorder F41.1 Suicidal ideation R45.851 Bereavement Z63.4
[2025-01-26] MEDS: quetiapine XR (24HR) 50 mg Tablet PO (21:10)
[2025-01-26] MEDS: ATORVASTATIN 10 MG TABLET 20 MG PO (21:11)
[2025-01-27] VITALS (7 sets, daily range): BP systolic 135–151; BP diastolic 67–76; PULSE 55–77; RESP 16–20; TEMP 36.3–37.2; O2SAT 90–100
[2025-01-27] MEDS: lactulose oral liq 20 gm/30 mL UDC 30 GM PO (07:54)
[2025-01-27] MEDS: metoprolol succinate ER (24 HR) 25 mg Tablet PO (07:55)
[2025-01-27] MEDS: insulin glargine 100 units/1 mL 65 UNIT SUBCUT (07:55)
--- NOTE | 2025-01-27 18:06 | P.NPUPN_ITS ---
Subjective NPU 2 Subjective: Patient presented today reporting that she is feeling better. Denied any issues with her thoughts to kill herself and denied any issues of auditory hallucinations or rogue thoughts. We discussed the risks, benefits and alternatives of increasing her Wellbutrin XL to 450 mg p.o. daily and she understood and agreed to proceed as is documented in this note. She denied any side effects to her medication. Mental Status Exam 2 MSE Comments: This is an obese older white female looking older than her stated age with limited grooming but appropriate eye contact. No abnormal movements except for mild psychomotor retardation and significant unsteadiness of gait with wide- based gait and lack of sturdiness. Cooperative with exam in mild to moderate distress. Speech was slightly decreased rate normal volume. Mood described as struggling recently, affect congruent and slightly subdued. Thought process organized. Thought content: Patient endorsed having no active suicidal or homicidal ideation, there are no delusions reported or noted, she endorsed some auditory but denied visual hallucinations. Reports hearing a voice inside their head saying kill yourself, which was a new and frightening experience. Expressed concern about the possibility of the voice telling them to harm others. Acknowledges having anxiety and feeling really depressed, with a significant stressor being the passing of their significant other in March. Additionally, there is concern about the potential exacerbation of mental health issues due to a new medication for COPD. Attention and concentration appeared intact and memory was mostly reliable but none were formally tested. She is alert and oriented x 3. Insight and judgment appeared fair impulse control impaired. Vitals/I&O/Wt Last Vital Signs Temp 97.5 F L 01/27/25 13:46 Pulse 60 01/27/25 15:37 Resp 18 01/27/25 15:37 BP 135/71 01/27/25 13:46 Pulse Ox 94 01/27/25 15:37 O2 Del Method Room Air 01/27/25 15:37 O2 Flow Rate 4 01/26/25 06:00 Data NPU 01/25/25 16:16 01/25/25 16:16 A&P Assessment and plan 1. Post-traumatic stress disorder, chronic: 2. Bipolar II disorder: 3. Cannabis dependence, uncomplicated: 4. Generalized anxiety disorder: 5. Suicidal ideation: 6. Bereavement: Plan: This is a 64-year-old white female with an extensive mental health history inpatient and outpatient with no inpatient treatment for over 2 decades. She was somewhat ambiguous about how things got worse. She reports recent increase struggles with depression which she had not been fully open with her outpatient provider about and then she found herself overwhelmed when she had a intense thought suggested that she should kill herself come to mind. She is also on a medication called Ensifentrine that carries a warning for worsening mental health conditions in relation to this medication. Longtime history of bipolar disorder II with current depressive episode. Recent onset of internal command auditory hallucination instructing self-harm. Anxiety. Possible exacerbation of psychiatric symptoms related to recent initiation of a phosphodiesterase inhibitor for pulmonary disease. Plan Reviewed current medications and assessed for possible adjustments to address worsening depression. Will reach out to the medical team to discuss medication management and potential changes. Medication list to be reviewed and decisions regarding modifications to be made in collaboration with the medical provider. 1. Continue current medication. Will consider increasing Wellbutrin XL to 450 mg p.o. daily versus attempting a different medication. Increase Wellbutrin XL to 450 mg p.o. daily 2. Continue every 15 minute checks for safety. 3. Encourage individual, group and milieu therapies. 4. Obtain collateral information. Including speak to outpatient medication provider. 5. Observe against the backdrop of the 96-hour hold. PDMP PDMP Reviewed: Not Reviewed Involuntary Hold Information 2 Hold Status: Legal Status: 96 Hour Hold Date/Time Hold Expires: 01/29/25 @ 1540 Attestations NPU 2 Medical Necessity Statement*: Inpatient hospitalization is medically necessary and the clinically appropriate intervention at this time. Will monitor medications and make changes as indicated. Likely length of stay 2 to 4 days. Coding Level of Care Code Acute Code for g Fwd Diagnoses Post-traumatic stress disorder, chronic F43.12 Bipolar II disorder F31.81 Cannabis dependence, uncomplicated F12.20 Generalized anxiety disorder F41.1 Suicidal ideation R45.851 Bereavement Z63.4
--- NOTE | 2025-01-27 18:12 | PC.NURSE ---
was informed by pt from room 126 that this patient felt like her blood sugar was low. upon assessment by this nurse pt diaphoretic, jayson, stated not feeling well. accu check perform pt blood sugar 43 at that time gave pt oranguice, packet of sugar, ham and pitcairn islander cheese sandwich, pt after pt ate blood sugar then was up to 54 pt food tray arrived for dinner pt stated she would eat that and since blood sugar was going up. instructed pt to stay in dayroom sitting in chair until after she ate and blood sugar retested. at that time after pt ate blood sugar retested now at 73.
--- NOTE | 2025-01-27 19:13 | PC.NURSE ---
telepharmacy call telepharmacy stated that 'pharmacy closed early tonight' 'sorry about that' She also stated she had changed the pt wellbutrin from sr to xl 'because thats what the patient is on at home and she didnt understand why because the pt is on the xl at home' i asked her to change it back per physician order. alerted primary nurse
[2025-01-27] MEDS: ATORVASTATIN 10 MG TABLET 20 MG PO (21:31)
[2025-01-27] MEDS: quetiapine XR (24HR) 50 mg Tablet PO (21:32)
[2025-01-28] VITALS (9 sets, daily range): BP systolic 142–165; BP diastolic 61–82; PULSE 61–69; RESP 16–24; TEMP 36.7–37.2; O2SAT 91–97
--- NOTE | 2025-01-28 01:31 | PC.NURSE ---
resp pt came to the desk at approx 0100 and asked for a breathing treatment. resp called. treatment given. pt back to bed at this time.
[2025-01-28] MEDS: insulin glargine 100 units/1 mL 65 UNIT SUBCUT (09:05)
[2025-01-28] MEDS: lactulose oral liq 20 gm/30 mL UDC 30 GM PO (09:06)
[2025-01-28] MEDS: metoprolol succinate ER (24 HR) 25 mg Tablet PO (09:06)
--- NOTE | 2025-01-28 15:01 | P.NPUPN_ITS ---
Subjective NPU 2 Subjective: Patient presented today reporting that she is feeling a little better. She was focused on discharge and reporting some slight improvement with the increase in her Wellbutrin XL. She discussed whether or not she should resume the nebulizer treatments she had been taking. We discussed reaching out to her primary provider about this issue so a reasonable decision can be made. We discussed that not many COPD medications exist so it may be something where more aggressive treatment of her mental health might be necessary to allow her to continue to take that medication. She denied any side effects of medication and we discussed evaluating her tomorrow for the possibility of discharge. Mental Status Exam 2 MSE Comments: This is an obese older white female looking older than her stated age with limited grooming but appropriate eye contact. No abnormal movements except for mild psychomotor retardation and significant unsteadiness of gait with wide- based gait and lack of sturdiness. Cooperative with exam in mild to moderate distress. Speech was slightly decreased rate normal volume. Mood described as struggling recently, affect congruent and slightly subdued. Thought process organized. Thought content: Patient endorsed having no active suicidal or homicidal ideation, there are no delusions reported or noted, she endorsed some auditory but denied visual hallucinations. Reports hearing a voice inside their head saying kill yourself, which was a new and frightening experience. Expressed concern about the possibility of the voice telling them to harm others. Acknowledges having anxiety and feeling really depressed, with a significant stressor being the passing of their significant other in March. Additionally, there is concern about the potential exacerbation of mental health issues due to a new medication for COPD. Attention and concentration appeared intact and memory was mostly reliable but none were formally tested. She is alert and oriented x 3. Insight and judgment appeared fair impulse control impaired. Vitals/I&O/Wt Last Vital Signs Temp 98.0 F 01/28/25 06:00 Pulse 69 01/28/25 12:23 Resp 16 01/28/25 12:23 BP 154/75 01/28/25 06:00 Pulse Ox 94 01/28/25 12:23 O2 Del Method Room Air 01/28/25 12:23 O2 Flow Rate 4 01/28/25 01:26 Data NPU 01/25/25 16:16 01/25/25 16:16 A&P Assessment and plan 1. Post-traumatic stress disorder, chronic: 2. Bipolar II disorder: 3. Cannabis dependence, uncomplicated: 4. Generalized anxiety disorder: 5. Suicidal ideation: 6. Bereavement: Plan: This is a 64-year-old white female with an extensive mental health history inpatient and outpatient with no inpatient treatment for over 2 decades. She was somewhat ambiguous about how things got worse. She reports recent increase struggles with depression which she had not been fully open with her outpatient provider about and then she found herself overwhelmed when she had a intense thought suggested that she should kill herself come to mind. She is also on a medication called Ensifentrine that carries a warning for worsening mental health conditions in relation to this medication. Longtime history of bipolar disorder II with current depressive episode. Recent onset of internal command auditory hallucination instructing self-harm. Anxiety. Possible exacerbation of psychiatric symptoms related to recent initiation of a phosphodiesterase inhibitor for pulmonary disease. Plan Reviewed current medications and assessed for possible adjustments to address worsening depression. Will reach out to the medical team to discuss medication management and potential changes. Medication list to be reviewed and decisions regarding modifications to be made in collaboration with the medical provider. 1. Continue current medication. Will consider increasing Wellbutrin XL to 450 mg p.o. daily versus attempting a different medication. Increased Wellbutrin XL to 450 mg p.o. daily. 2. Continue every 15 minute checks for safety. 3. Encourage individual, group and milieu therapies. 4. Obtain collateral information. Including speak to outpatient medication provider. 5. Observe against the backdrop of the 96-hour hold. PDMP PDMP Reviewed: Not Reviewed Involuntary Hold Information 2 Hold Status: Legal Status: 96 Hour Hold Date/Time Hold Expires: 01/29/25 @ 1540 Attestations NPU 2 Medical Necessity Statement*: Inpatient hospitalization is medically necessary and the clinically appropriate intervention at this time. Will monitor medications and make changes as indicated. Likely length of stay 1-3 days. Coding Level of Care Code Acute Code for [facility] Fwd Diagnoses Post-traumatic stress disorder, chronic F43.12 Bipolar II disorder F31.81 Cannabis dependence, uncomplicated F12.20 Generalized anxiety disorder F41.1 Suicidal ideation R45.851 Bereavement Z63.4
[2025-01-28] MEDS: quetiapine XR (24HR) 50 mg Tablet PO (20:39)
[2025-01-28] MEDS: ATORVASTATIN 10 MG TABLET 20 MG PO (20:39)
[2025-01-29 06:00] VITALS: BP 148/58; PULSE 58; RESP 18; TEMP 36.4; O2SAT 97
[2025-01-29] MEDS: insulin glargine 100 units/1 mL 65 UNIT SUBCUT (07:27)
[2025-01-29 08:00] VITALS: PULSE 58; RESP 18; O2SAT 93
[2025-01-29] MEDS: metoprolol succinate ER (24 HR) 25 mg Tablet PO (08:53)
--- NOTE | 2025-01-29 09:57 | NUR.SHIFT ---
Pt states that she slept good, but up and down last night, which is normal for her. She states that she is still having mild anxiety and a little depression still. No reports of SI/HI or hallucinations. No pain noted. Pt is calm and cooperative on assessment and is hopeful to be d/c home.
[2025-01-29 13:14] VITALS: BP 168/77; PULSE 74; RESP 15; TEMP 36.4; O2SAT 97
[2025-01-29 14:00] VITALS: BP 168/74; PULSE 74; RESP 16; TEMP 36.4; O2SAT 97
== END 2025-01-29 14:45 | disposition home or self-care (01) | DRG 885 ==
LOC: ER 17:17 → NP 17:18
PROVIDERS: Admitting Provider Psychiatry & Neurology Psychiatry; Emergency Provider Physician Assistant; PCP Nurse Practitioner Family; Visit Provider Psychiatry & Neurology Psychiatry
DX: F31.81 Bipolar II disorder (principal); R45.851 Suicidal ideations; F41.1 Generalized anxiety disorder; E66.9 Obesity, unspecified; Z68.34 Body mass index [BMI] 34.0-34.9, adult; F43.12 Post-traumatic stress disorder, chronic; F12.20 Cannabis dependence, uncomplicated; F17.210 Nicotine dependence, cigarettes, uncomplicated; G47.30 Sleep apnea, unspecified; M35.00 Sjogren syndrome, unspecified; J43.9 Emphysema, unspecified; I48.0 Paroxysmal atrial fibrillation; I50.9 Heart failure, unspecified; I11.0 Hypertensive heart disease with heart failure; G47.00 Insomnia, unspecified; E11.51 Type 2 diabetes mellitus with diabetic peripheral angiopathy without gangrene; E11.42 Type 2 diabetes mellitus with diabetic polyneuropathy; Z79.4 Long term (current) use of insulin; Z87.440 Personal history of urinary (tract) infections; Z63.4 Disappearance and death of family member; Z91.51 Personal history of suicidal behavior
CPT/HCPCS: 36415; 36416; 80053; 80306; 80307; 82962; 85025; 94640; 96372; 97110; 97150; 97161; 97165; 99285; J1815; J3535; J7626; J9999

== ENCOUNTER → 2025-02-09 11:15 | Outpatient (BNVA) | payer OTHER, MEDICAID, SELFPAY ==
[2024-12-29 12:09] VITALS: BP 124/70; BMI 35.9
== END ==
PROVIDERS: PCP Nurse Practitioner Family; Visit Provider Internal Medicine Rheumatology
DX: G58.7 Mononeuritis multiplex (principal); R76.8 Other specified abnormal immunological findings in serum; R29.898 Other symptoms and signs involving the musculoskeletal system; Z79.899 Other long term (current) drug therapy; M35.00 Sjogren syndrome, unspecified
CPT/HCPCS: 99214

== ENCOUNTER → 2025-02-17 07:16 | Outpatient (BNVA) | payer MEDICARE, MEDICAID, SELFPAY ==
[2024-12-29 12:09] VITALS: BP 124/70; BMI 35.9
== END ==
PROVIDERS: PCP Nurse Practitioner Family; Visit Provider Nurse Practitioner Family
DX: I10 Essential (primary) hypertension (principal); R73.9 Hyperglycemia, unspecified; R53.83 Other fatigue
CPT/HCPCS: 80053; 80061; 83036; 84443; 85025

== ENCOUNTER → 2025-02-18 15:38 | Outpatient (BNVA) | payer MEDICARE, MEDICAID, SELFPAY ==
[2024-12-29 12:09] VITALS: BP 124/70; BMI 35.9
== END ==
PROVIDERS: PCP Nurse Practitioner Family; Visit Provider Internal Medicine
DX: R06.09 Other forms of dyspnea (principal); I11.0 Hypertensive heart disease with heart failure; I50.32 Chronic diastolic (congestive) heart failure; I48.0 Paroxysmal atrial fibrillation; G47.33 Obstructive sleep apnea (adult) (pediatric); F17.218 Nicotine dependence, cigarettes, with other nicotine-induced disorders
CPT/HCPCS: 99213

== ENCOUNTER → 2025-02-19 11:11 | Outpatient (BNVA) | payer MEDICARE, MEDICAID, SELFPAY ==
[2024-12-29 12:09] VITALS: BP 124/70; BMI 35.9
== END ==
PROVIDERS: PCP Nurse Practitioner Family; Visit Provider Internal Medicine
DX: E78.5 Hyperlipidemia, unspecified (principal); D35.02 Benign neoplasm of left adrenal gland; E11.42 Type 2 diabetes mellitus with diabetic polyneuropathy; E11.65 Type 2 diabetes mellitus with hyperglycemia; E04.1 Nontoxic single thyroid nodule; I10 Essential (primary) hypertension
CPT/HCPCS: 99214

== ENCOUNTER → 2025-03-02 09:14 | Outpatient (BNVA) | payer OTHER, MEDICAID, SELFPAY ==
[2024-12-29 12:09] VITALS: BP 124/70; BMI 35.9
== END ==
PROVIDERS: PCP Nurse Practitioner Family; Visit Provider Podiatrist Foot & Ankle Surgery
DX: E11.42 Type 2 diabetes mellitus with diabetic polyneuropathy (principal); L60.3 Nail dystrophy; L84 Corns and callosities; Q82.8 Other specified congenital malformations of skin; R09.89 Other specified symptoms and signs involving the circulatory and respiratory systems; I73.9 Peripheral vascular disease, unspecified; M21.621 Bunionette of right foot; M21.622 Bunionette of left foot; Z79.4 Long term (current) use of insulin
CPT/HCPCS: 11056; 11721; 17110; 99204

== ENCOUNTER 2025-03-09 09:10 | Outpatient (CLI) | payer OTHER, SELFPAY ==
[2024-12-29 12:09] VITALS: BP 124/70; BMI 35.9
--- NOTE | 2025-03-09 09:00 | MM_ITS ---
WS: [id number] BILATERAL 3D TOMOSYNTHESIS DIGITAL SCREENING MAMMOGRAPHY WITH CAD CLINICAL INFORMATION: Z12.39 - Encounter for other screening for malignant neop... HISTORY: Screening mammogram. No current complaints. COMPARISON: 2020 TECHNIQUE: Bilateral CC and MLO views. FINDINGS: Scattered fibroglandular densities bilaterally. No suspicious focal mass, asymmetry, calcifications, or architectural distortion. No evidence of malignancy. Vascular calcification. Incidental punctate and lucent centered calcifications. Stable previously biopsied nodule in the lower inner LEFT breast MM/MM scr BI tomosynthesis [id number] IMPRESSION: DENSITY: There are scattered areas of fibroglandular density. BI-RADS: 2 - Benign. FOLLOW UP: 1 Year Follow-up Recommend return to annual screening mammography.
== END 2025-03-09 09:11 | disposition home or self-care (01) ==
LOC: RAD 09:12
PROVIDERS: PCP Nurse Practitioner Family; Visit Provider Nurse Practitioner Family
DX: Z12.31 Encounter for screening mammogram for malignant neoplasm of breast (principal); R92.323 Mammographic fibroglandular density, bilateral breasts; R92.1 Mammographic calcification found on diagnostic imaging of breast; N63.20 Unspecified lump in the left breast, unspecified quadrant
CPT/HCPCS: 77063; 77067

== ENCOUNTER 2025-03-12 10:09 | Outpatient (CLI) | payer OTHER, SELFPAY ==
[2024-12-29 12:09] VITALS: BP 124/70; BMI 35.9
--- NOTE | 2025-03-12 10:15 | USR_ITS ---
PROCEDURE INFORMATION: Exam: US Bilateral Noninvasive Physiologic Study of the Lower Extremity Arteries, Limited Exam date and time: 03/12/2025 10:00 AM Age: 64 years old Clinical indication: Other: Decreased pulses; Additional info: Decreased pedal pulses. PT states RT leg is worse. PT is also a smoker and diabetic TECHNIQUE: Imaging protocol: Bilateral Limited bilateral noninvasive physiologic studies of lower extremity arteries. Waveforms were obtained and evaluated. Images were documented and archived. Exam is limited. COMPARISON: CT lower leg RT wo con* [id number] 02/02/2023 2:36 PM FINDINGS: Right Ankle-Brachial Index: Not able to be obtained due to the vessels in the foot not being compressible. Left Ankle-Brachial Index: Not able to be obtained due to the vessels in the foot not being compressible. Blood pressure was not obtained due to glucose monitor. US/CV ankle brachial index [id number] IMPRESSION: Nondiagnostic study due to noncompressible vessels.
== END 2025-03-12 10:10 | disposition home or self-care (01) ==
LOC: RAD 10:10
PROVIDERS: PCP Nurse Practitioner Family; Visit Provider Podiatrist Foot & Ankle Surgery
DX: R09.89 Other specified symptoms and signs involving the circulatory and respiratory systems (principal); E11.9 Type 2 diabetes mellitus without complications; F17.200 Nicotine dependence, unspecified, uncomplicated
CPT/HCPCS: 93922

== ENCOUNTER 2025-03-18 08:34 | Inpatient (IN) | payer MEDICARE, MEDICAID, SELFPAY ==
[2024-12-29 12:09] VITALS: BP 124/70; BMI 35.9
[2025-03-18] VITALS (17 sets, daily range): BP systolic 117–159; BP diastolic 50–85; PULSE 55–65; RESP 15–18; TEMP 36.4–36.7; O2SAT 91–98; BMI 35.3
--- OUTSIDE RECORDS SUMMARY | 2025-03-18 08:40 | XMS_ITS | Encounter Summary ---
Author Organization [facility] Address [address] [place] [address] Care Team Providers Care Crackling Press Operator Name Role Phone Non-Staff, Physician Primary Care Provider Unava ilable Encounter Details Date Type Department Care Team (Latest Contact Info) Description 07/21/2004 Outpatient Historical [facility] [address] [place] [address] Marguerite Wade, HEEL SHAVER [address] [place] [id number] Benign hypertension (Primary Dx); FLUID OVERLOAD Social History Tobacco Use Types Packs/Day Years Used Date Smoking Tobacco: Never Assessed Comments Unknown Sex and Gender Information Value Date Recorded Sex Assigned at Not on file 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
--- OUTSIDE RECORDS SUMMARY | 2025-03-18 08:41 | XMS_ITS | Encounter Summary ---
Author Organization [facility] Address [address] [place] [address] Care Team Providers Care Sharepoint Analyst Name Role Phone Non-Staff, Physician Primary Care Provider Unava ilable Encounter Details Date Type Department Care Team (Late st Contact Info) Description 08/08/2020 Ancillary Orders 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 No acute pathology. [id number] Narrative Procedure Note Hiro Jain MD - [...] spine, greatest at L5-S1. No acute pathology. [id number] Marguerite Wade SEISMIC COMPUTER DIAGNOSTIC IMAGING ORDERABL ES Final Result documented in this encounter Visit Diagnoses Diagnosis Low back pain, unspecified back pain laterality, unspecified chronicity, unspecified whether sciatica present Low back pain, unspecified back pain laterality, unspecified chronicity, unspecified whether sciatica present documented in this encounter Care Teams Sharepoint Analyst Relationship Specialty Start Date End Date Non-Staff, Physician NO ADDRESS ON FILE PCP - General 12/15/19 documented as of this encounter
--- OUTSIDE RECORDS SUMMARY | 2025-03-18 08:41 | XMS_ITS | Encounter Summary ---
Author Organization [facility] Address [address] [place] [address] Care Team Providers Care Nuclear Officer Name Role Phone Non-Staff, Physician Primary Care Provider Unava ilable Encounter Details Date Type Department Care Team (Latest Contact Info) Description 12/09/2006 Outpatient Historical [facility] [place] [address] [place] [phone] Brian Lewis NP NO ADDRESS ON FILE Acute Bronchitis (Primary Dx); Unspecified Asthma; Acute Pharyngitis Social History Tobacco Use Types Packs/Day Years Used Date Smoking Tobacco: Never Assessed Comments Unknown Sex and Gender Information Value Date Recorded Sex Assigned at Not on file Legal Sex Female 2: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
--- OUTSIDE RECORDS SUMMARY | 2025-03-18 08:41 | XMS_ITS | Encounter Summary ---
Author Organization [facility] Address [address] [place] [address] Care Team Providers Care Hydraulic Jack Adjuster Name Role Phone Non-Staff, Physician Primary Care Provider Unava ilable Encounter Details Date Type Department Care Team (Late st Contact Info) Description 01/12/2020 Ancillary Orders [facility] [address] [place] [address] Marguerite Wade, LAWN SPRINKLER INSTALLER [address] [place] [address] Wheezing Social History Tobacco Use Types Packs/Day Years Used Date Smoking Tobacco: Every Day Cigarettes 1 25 Smokeless Tobacco: Never Comments:1.5 packs Alcohol Use Standard Drinks/Week Comments No 0 (1 standard drink = 0.6 oz pur e alcohol) Comments No Sex and Gender Information Value Date Recorded Sex Assigned at Not on file 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 IMPRESSION: Increased interstitium. No acute pathology. [id number] Narrative Procedure Note Hiro Jain MD - [...] spine. IMPRESSION: Increased interstitium. No acute pathology. [id number] Marguerite Wade LAWN SPRINKLER INSTALLER DIAGNOSTIC IMAGING ORDERABL ES Final Result documented in this encounter Visit Diagnoses Diagnosis Wheezing Wheezing documented in this encounter Care Teams Hydraulic Jack Adjuster Relationship Specialty Start Date End Date Non-Staff, Physician NO ADDRESS ON FILE PCP - General 12/15/19 documented as of this encounter
--- OUTSIDE RECORDS SUMMARY | 2025-03-18 08:41 | XMS_ITS | Clinical Summary ---
Author Organization [facility] Facility Address [address] [place] [address] Care Team Providers Care Motor Home Electrical Foreman Name Role Phone Marguerite Wade COOK STARCH Primary Care Provider [phone] Allergies No known active allergies Medications * [...] Recently Relevant to Health Maintenance Insurance Medicaid [place] ([id number]) [facility] Dual Elig MCR/MIKIE Care Teams Motor Home Electrical Foreman Relationship Specialty Start Date End Date Marguerite Wade FNP [address] [place] [address] PCP - General Internal Medicine 07/16/18
--- OUTSIDE RECORDS SUMMARY | 2025-03-18 08:41 | XMS_ITS | Encounter Summary ---
Author Organization [facility] Address [address] [place] [address] Care Team Providers Care Financial Reporting Specialist Name Role Phone Non-Staff, Physician Primary Care Provider Unava ilable Encounter Details Date Type Department Care Team (Latest Contact Info) Description 04/01/2019 Ancillary Orders [facility] Admitting [address] [place] [address] Marguerite Wade, COLLATERAL SPECIALIST [address] [place] [phone] COPD with exacerbation (CMS/[facility]) Social History Tobacco Use Types Packs/Day Years Used Date Smoking Tobacco: Every Day Cigarettes 1.5 25 Smokeless Tobacco: Never Comments:1.5 packs Alcohol Use Standard Drinks/Week Comments No 0 (1 standard drink = 0.6 oz pur e alcohol) Comments No Sex and Gender Information Value Date Recorded Sex Assigned at Not on file Legal Sex Female 2:51 AM DATA TECHNICAL LEAD Gender Identity Not on file Sexual Orientation Not on file Occupation Industry Job Start Date Job End Date Not on file Not on file Not on file Not on file documented as of this encounter Plan of Treatment Not on file documented as of this encounter Results * XR CHEST PA AND LATERAL 2 VW (04/01/2019 4:18 PM DATA TECHNICAL LEAD) Anatomical Region Laterality Modality Chest Computed Radiogr aphy 04/01/2019 4:18 PM DATA TECHNICAL LEAD Impressions 04/02/2019 11:54 AM DATA TECHNICAL LEAD IMPRESSION: Please see below. Exam: XR CHEST [...] IMPRESSION: Stable. Nothing active detected. Marguerite Wade COLLATERAL SPECIALIST DIAGNOSTIC IMAGING ORDERABL ES Final Result documented in this encounter Visit Diagnoses Diagnosis COPD with exacerbation (CMS/HCC) Obstructive chronic bronchitis with exacerbation COPD with exacerbation (CMS/HCC) Obstructive chronic bronchitis with exacerbation documented in this encounter Care Teams Financial Reporting Specialist Relationship Specialty Start Date End Date Non-Staff, Physician NO ADDRESS ON FILE PCP - General 12/15/19 documented as of this encounter
--- OUTSIDE RECORDS SUMMARY | 2025-03-18 08:41 | XMS_ITS | Clinical Summary ---
Author Organization [facility] Address [address] [place] [address] Care Team Providers Care Tobacco Baler Name Role Phone Non-Staff, Physician Primary Care [...] , without long-term current use of insulin (CMS/[facility]) Take BS daily before brekfast. 100 Strip [...] DAILY.. 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 Active CPAP / BIPAP suppliesIndicati ons:JOSE [...] on file Legal Sex Female 2:51 AM INSPECTOR SHEET METAL PARTS Gender Identity Not on file Sexual Orientation [...] Flex Sig/CT Colonography Q 5 years 2005 RSV VACCINE (60+ or ) (1 - Risk 50-74 years 1-dose series) 2010 ZOSTER VACCINE (1 of 2) 2010 DIABETES ANNUAL FOOT EXAM 03/12/20192017, 02/27/2016, 02/27/2016 CERVICAL CANCER SCREENING 06/18/2019 PAP SMEAR 06/18/2019 06/18/2016 LDL CHOLESTEROL ANNUAL 07/03/2019 9, 04/29/2018, 2016, Additional history exists DIABETES ANNUAL RETINAL EXAM 12/13/2019 12/12/2018 BREAST CANCER SCREENING 12/18/2019 12/17/2018, 06/18 DIABETES HBA1C Q 6 MONTHS 07/11/20202019, 11/28/2018, 03/11/2018, Additional history exists DIABETES MICROALBUMIN ANNUAL SCREEN 01/10/2021 01/11/2020, 07/03/2018, 03/05/2018, Additional history exists COLORECTAL SCREENING 08/03/2024 08/03/2014 Colorectal Cancer Screening 08/03/2024 INFLUENZA VACCINE (#1) 2024 03/11/2018 Medical Devices Implanted Type Area Neon Technician Device Identifier Shelf Expiration Date Model / Serial / Lot Mesh Marlex Sheet [id number] - [id number] Implanted:Qty: 1 on 07/15/2015 by Doc Bolton MD at [facility] Mesh N/A: Abdomen CR [employer] 08/11/2015 [id number] / / [id number] Procedures Procedure Name Priority Date/Time Associated Diagnosis [...] cancer LIPID PANEL Routine 07/03/2018 11:24 AM INSPECTOR SHEET METAL PARTS Uncontrolled type 2 diabetes mellitus with hypoglycemia without coma (CMS/HCC) ENDOSCOPY, COLON, SCREENING Routine 08/03/2014 from Last 3 Months or Most Recently Relevant to Health Maintenance Results * (ABNORMAL) HEMOGLOBIN A1C (01/12/2020 9:19 AM CDT) HEMOGLOBIN A1C 8.7(H) <=5.6 % 01/12/2020 5:01 PM CDT [facility] EST. AVG GLUCOSE, A1C 203 mg/dL 01/12/2020 5:01 PM CDT [facility] Blood Venipuncture / Unknown 01/12/2020 9:19 AM CDT 01/12/2020 2:38 PM CDT [facility] - 01/12/2020 5:01 PM CDT HGB A1C INTERPRETATION NORMAL: <5.7% PRE-DIABETES: 5.7 - 6.4% DIABETES: 6.5% OR GREATER us Marguerite MOREIRA CHEMISTRY ORDERABLES Final Result Performing Organization Address [facility] de Phone Number [facility] # [id number] [address] [place] [address] * (ABNORMAL) MICROALBUMIN/CREATININE RATIO, RANDOM UR (01/11/2020 9:29 AM CDT) MICROALBUMIN, URINE 10.3 No Reference Range mg/dL 01/11/2020 10:30 AM T [facility] CREATININE, URINE 22.8(L) 29.0 - 226.0 mg/dL 01/11/2020 10:30 AM [facility] Comment:Reference Range vari es with fluid intake and diet. MICROALBUMIN/ CREAT RATIO, UR 451.8(H) <25.0 mg/g 01/11/2020 10:30 AM [facility] Urine URINE SPECIMEN OBTAINED BY CLEAN CATCH PROCEDURE / Unknown Collection / Unknown 01/11/2020 9:29 AM CDT 01/11/2020 9:29 AM CDT [facility] - 01/11/2020 10:30 AM CDT Condition Microalbumin/Creat ratio Normal Males <17 Normal Females <25 Microalbuminuria Males 17-299 Microalbuminuria Females 25-299 Overt proteinuria >=300 us Mendez Reyse MD URINE ORDERABLES Final Resul t Performing Organization Address [facility]/ZIP Co de Phone Number [facility] CLIA # [id number] [address] [place] [address] * MAMMO SCREEN BILAT W OR WO CAD (12/17/2018 1:44 PM CDT) Anatomical Region Laterality Modality Breast Bilateral Mammography 12/17/2018 1:53 PM CDT Impressions 12/18/2018 9:58 AM CDT : Superficial mass inferior medially, anteriorly, on the left, will require additional evaluation. Patient will be contacted by the Breast Center to schedule the recommended follow-up appointment. [id number] Narrative 12/18/2018 9:58 AM CDT Bilateral Digital [...] by the Computer Aided Detection System (CAD), Ebuzzing and Teads ImageChecker, Version 8.3. us Shaun Briones MD MAMMO ORDERABLES Final Re sult * (ABNORMAL) LIPID PANEL (07/03/2018 11:24 AM INSPECTOR SHEET METAL PARTS) CHOLESTEROL 156 <200 mg/dL 07/03/2018 12:29 PM [facility] TRIGLYCERIDE 156(H) <150 mg/dL 07/03/2018 12:29 PM [facility] HDL 41 40 - 59 mg/dL 07/03/2018 12:29 PM [facility] LDL CALCULATED 84 <100 mg/dL 07/03/2018 12:29 PM [facility] NON-HDL CHOLESTEROL 115 <130 mg/dL 07/03/2018 12:29 PM [facility] Blood Venipuncture / Unknown 07/03/2018 11:24 AM INSPECTOR SHEET METAL PARTS 07/03/2018 11:24 AM [facility] - 07/03/2018 12:29 PM INSPECTOR SHEET METAL PARTS TOTAL CHOLESTEROL mg/dL Desirable <200 Borderline high [...] Ranges for Lipid Panels (NCEP/AMA) Marguerite Wade STOCKROOM HELPER CHEMISTRY ORDERABLES Final Result [facility] CLIA # [id number] [address] [place] [address] * ENDOSCOPY, COLON, SCREENING (08/03/2014) Marguerite Vanegas Juana Diaz STOCKROOM HELPER GI PROCEDURE ORDERABLES Fin al Result from Last 3 Months or Most Recently Relevant to Health Maintenance Insurance [place] [place] [address] [facility]UAL [facility] H[facility] * Guarantor: [id number] Account Type Relation to Patient Date of Phone Billing Address Workers Comp Employer [employer] [address] [place] [address] WORKERS COMP Advance Directives For more information, please contact: [phone] * Full Code (Latest Code Status on File) Date Activated Date Inactivated Comments 12/09/2018 7:32 AM 12/09/2018 1:04 PM * Full Code Date Activated Date Inactivated Comments 05/28/2017 4:05 PM 05/30/2017 1:59 PM Care Teams Tobacco Baler Relationship Specialty Start Date End Date Non-Staff, Physician NO ADDRESS ON FILE PCP - General 12/15/19
--- OUTSIDE RECORDS SUMMARY | 2025-03-18 08:41 | XMS_ITS | Encounter Summary ---
Author Organization [facility] Address [address] [place] [address] Care Team Providers Care Mixing Plant Operator Name Role Phone Non-Staff, Physician Primary Care Provider Unava ilable Encounter Details Date Type Department Care Team (Late st Contact Info) Description 12/10/2006 Outpatient Historical [facility] [facility] [address] [place] [address] Social History Tobacco Use Types Packs/Day Years Used Date Smoking Tobacco: Never Assessed Comments Unknown Sex and Gender Information Value Date Recorded Sex Assigned at Not on file Legal Sex Female 2:51 AM CROP RANCH HAND Gender Identity Not on file Sexual Orientation Not on file documented as of this encounter Plan of Treatment Not on file documented as of this encounter Visit Diagnoses Not on filedocumented in this encounter Care Teams Mixing Plant Operator Relationship Specialty Start Date End Date Non-Staff, Physician NO ADDRESS ON FILE PCP - General 12/15/19 documented as of this encounter
--- OUTSIDE RECORDS SUMMARY | 2025-03-18 08:41 | XMS_ITS | Encounter Summary ---
Author Organization [facility] Address [address] [place] [address] Care Team Providers Care Pharmaceutical Process Engineer Name Role Phone Non-Staff, Physician Primary Care Provider Unava ilable Encounter Details Date Type Department Care Team (Latest Contact Info) Description 11/16/2003 Outpatient Historical [facility] [place] [address] [facility] [address] [place] [address] Marguerite Wade, RETAIL PARTS PROFESSIONAL [address] [place] [address] ACUTE URI NOS (Primary Dx); GONZALEZ'S PALSY Social History Tobacco Use Types Packs/Day Years Used Date Smoking Tobacco: Never Assessed Comments Unknown Sex and Gender Information Value Date Recorded Sex Assigned at Not on file Legal Sex Female 2:51 AM LIGHTING SPECIALIST Gender Identity Not on file Sexual Orientation Not on file documented as of this encounter Plan of Treatment Not on file documented as of this encounter Visit Diagnoses Diagnosis Acute upper respiratory infections of unspecified site- Primary Gonzalez's palsy documented in this encounter Care Teams Pharmaceutical Process Engineer Relationship Specialty Start Date End Date Non-Staff, Physician NO ADDRESS ON FILE PCP - General 12/15/19 documented as of this encounter
--- OUTSIDE RECORDS SUMMARY | 2025-03-18 08:41 | XMS_ITS | Encounter Summary ---
Author Organization [facility] Address [address] [place] [address] Care Team Providers Care Child Care Center Administrator Name Role Phone Non-Staff, Physician Primary Care Provider Unava ilable Encounter Details Date Type Department Care Team (Latest Contact Info) Description 11/24/2003 Outpatient Historical [facility] [address] [place] [address] Marguerite Wade, VIDEO SURVEILLANCE TECHNICIAN [address] [place] [address] ACUTE BRONCHITIS (Primary Dx) Social History Tobacco Use Types Packs/Day Years Used Date Smoking Tobacco: Never Assessed Comments Unknown Sex and Gender Information Value Date Recorded Sex Assigned at Not on file Legal Sex Female 2:51 AM INDUSTRIAL CUSTODIAN Gender Identity Not on file Sexual Orientation Not on file documented as of this encounter Plan of Treatment Not on file documented as of this encounter Visit Diagnoses Diagnosis Acute bronchitis- Primary documented in this encounter Care Teams Child Care Center Administrator Relationship Specialty Start Date End Date Non-Staff, Physician NO ADDRESS ON FILE PCP - General 12/15/19 documented as of this encounter
--- OUTSIDE RECORDS SUMMARY | 2025-03-18 08:41 | XMS_ITS | Encounter Summary ---
Author Organization [facility] Address [address] [place] [address] Care Team Providers Care Agricultural Chemicals Inspector Name Role Phone Non-Staff, Physician Primary Care Provider Unava ilable Encounter Details Date Type Department Care Team (Latest Contact Info) Description 12/12/2006 Outpatient Historical [facility] Medicine [place] [address] [place] [phone] Brian Lewis NP NO ADDRESS ON FILE Acute Bronchitis (Primary Dx); Unspecified Asthma; Other Malaise and Fatigue Social History Tobacco Use Types Packs/Day Years Used Date Smoking Tobacco: Never Assessed Comments Unknown Sex and Gender Information Value Date Recorded Sex Assigned at Not on file Legal Sex Female 2:51 AM ORACLE APPLICATION ARCHITECT Gender Identity Not on file Sexual Orientation Not on file documented as of this encounter Plan of Treatment Not on file documented as of this encounter Visit Diagnoses Diagnosis Acute bronchitis- Primary Unspecified asthma(493.90) Unspecified asthma Other malaise and fatigue documented in this encounter Care Teams Agricultural Chemicals Inspector Relationship Specialty Start Date End Date Non-Staff, Physician NO ADDRESS ON FILE PCP - General 12/15/19 documented as of this encounter
--- OUTSIDE RECORDS SUMMARY | 2025-03-18 08:41 | XMS_ITS | Encounter Summary ---
Author Organization [facility] Address [address] [place] [address] Care Team Providers Care Bioinformatics Associate Name Role Phone Non-Staff, Physician Primary Care Provider Unava ilable Encounter Details Date Type Department Care Team (Latest Contact Info) Description 11/10/2003 Outpatient Historical [facility] [address] [place] [address] Marguerite Wade, MULTIPLE WIRE SAWYER [address] [place] [address] GONZALEZ'S PALSY (Primary Dx) Social History Tobacco Use Types Packs/Day Years Used Date Smoking Tobacco: Never Assessed Comments Unknown Sex and Gender Information Value Date Recorded Sex Assigned at Not on file Legal Sex Female 2:51 AM SPANISH LANGUAGE LECTURER Gender Identity Not on file Sexual Orientation Not on file documented as of this encounter Plan of Treatment Not on file documented as of this encounter Visit Diagnoses Diagnosis Gonzalez's palsy- Primary documented in this encounter Care Teams Bioinformatics Associate Relationship Specialty Start Date End Date Non-Staff, Physician NO ADDRESS ON FILE PCP - General 12/15/19 documented as of this encounter
--- OUTSIDE RECORDS SUMMARY | 2025-03-18 08:41 | XMS_ITS | Encounter Summary ---
Author Organization [facility] Address [address] [place] [address] Phone Care Team Providers Care Instructor Dancing Name Role Phone Marguerite Wade Primary Care Provider [phone] Encounter Details Date Type Department Care Team (Late st Contact Info) Description 11/15/2018 Orders Only [facility] [address] [place] [address] Mendez Reyes MD [address] [place] [address] Persistent proteinuria Social History Tobacco [...] proteinuria documented in this encounter Care Teams Instructor Dancing Relationship Specialty Start Date End Date Marguerite Wade FNP [address] [place] [address] PCP - General Internal Medicine 07/16/18 documented as of this encounter
--- OUTSIDE RECORDS SUMMARY | 2025-03-18 08:41 | XMS_ITS | Encounter Summary ---
Author Organization [facility] Address [address] [place] [address] Care Team Providers Care Cuff Matcher Name Role Phone Non-Staff, Physician Primary Care Provider Unava ilable Encounter Details Date Type Department Care Team (Late st Contact Info) Description 07/07/2019 Ancillary Orders [facility] [place] [address] [place] [address] Marguerite Wade, CIRCULAR SAW EDGE FUSER [address] [place] [address] Breath shortness Social History Tobacco Use Types Packs/Day Years Used Date Smoking Tobacco: Every Day Cigarettes 1.5 25 Smokeless Tobacco: Never Comments:1.5 packs Alcohol Use Standard Drinks/Week Comments No 0 (1 standard drink = 0.6 oz pur e alcohol) Comments No Sex and Gender Information Value Date Recorded Sex Assigned at Not on file Legal Sex Female 2:51 AM SECURITY INTERN Gender Identity Not on file Sexual Orientation Not on file Occupation Industry Job Start Date Job End Date Not on file Not on file Not on file Not on file documented as of this encounter Plan of Treatment Not on file documented as of this encounter Results * XR CHEST PA AND LATERAL 2 VW (07/07/2019 4:54 PM SECURITY INTERN) Anatomical Region Laterality Modality Chest Computed Radiogr aphy 07/07/2019 4:55 PM SECURITY INTERN Impressions 07/08/2019 11:32 PM SECURITY INTERN IMPRESSION: Please see below. Exam: XR CHEST [...] interstitial disease. No acute abnormality. Marguerite Wade CIRCULAR SAW EDGE FUSER DIAGNOSTIC IMAGING ORDERABL ES Final Result documented in this encounter Visit Diagnoses Diagnosis Breath shortness Shortness of breath Breath shortness Shortness of breath documented in this encounter Care Teams Cuff Matcher Relationship Specialty Start Date End Date Non-Staff, Physician NO ADDRESS ON FILE PCP - General 12/15/19 documented as of this encounter
--- OUTSIDE RECORDS SUMMARY | 2025-03-18 08:41 | XMS_ITS | Encounter Summary ---
Author Organization [facility] Address [address] [place] [address] Care Team Providers Care Straw Hat Presser Name Role Phone Non-Staff, Physician Primary Care Provider Unava ilable Encounter Details Date Type Department Care Team (Latest Contact Info) Description 07/05/2004 Outpatient Historical [facility] [address] [place] [address] Marguerite Wade, ASSOCIATE CREATIVE DIRECTOR [address] [place] [address] OTHER CONSTIPATION (Primary Dx); Benign hypertension Social History Tobacco Use Types Packs/Day Years Used Date Smoking Tobacco: Never Assessed Comments Unknown Sex and Gender Information Value Date Recorded Sex Assigned at Not on file Legal Sex Female 2:51 AM DICE PERSON Gender Identity Not on file Sexual Orientation Not on file documented as of this encounter Plan of Treatment Not on file documented as of this encounter Visit Diagnoses Diagnosis Other constipation- Primary Benign hypertension Essential hypertension, benign documented in this encounter Care Teams Straw Hat Presser Relationship Specialty Start Date End Date Non-Staff, Physician NO ADDRESS ON FILE PCP - General 12/15/19 documented as of this encounter
--- OUTSIDE RECORDS SUMMARY | 2025-03-18 08:41 | XMS_ITS | Encounter Summary ---
Author Organization [facility] Address [address] [place] [address] Care Team Providers Care Felt Finisher Name Role Phone Non-Staff, Physician Primary Care Provider Unava ilable Encounter Details Date Type Department Care Team (Latest Contact Info) Description 12/19/2018 Ancillary Orders [facility] [address] [facility] [address] [place] [address] Shaun Briones MD [address] [place] [address] Inconclusive mammogram Social History Tobacco Use Types Packs/Day Years Used Date Smoking Tobacco: Every Day Cigarettes 1.5 25 Smokeless Tobacco: Never Comments:1.5 packs Alcohol Use Standard Drinks/Week Comments No 0 (1 standard drink = 0.6 oz pur e alcohol) Comments No Sex and Gender Information Value Date Recorded Sex Assigned at Not on file Legal Sex Female 2:51 AM SURFACE TO AIR WEAPONS OFFICER Gender Identity Not on file Sexual Orientation Not on file Occupation Industry Job Start Date Job End Date Not on file Not on file Not on file Not on file documented as of this encounter Plan of Treatment Not on file documented as of this encounter Visit Diagnoses Diagnosis Inconclusive mammogram documented in this encounter Care Teams Felt Finisher Relationship Specialty Start Date End Date Non-Staff, Physician NO ADDRESS ON FILE PCP - General 12/15/19 documented as of this encounter
--- OUTSIDE RECORDS SUMMARY | 2025-03-18 08:41 | XMS_ITS | Encounter Summary ---
Author Organization [facility] Address [address] [place] [address] Phone Care Team Providers Care Blow Pit Helper Name Role Phone Marguerite Wade Primary Care Provider Reason for Visit * Reason Comments Med Refill Encounter Details Date Type Department Care Team (Late st Contact Info) Description 06/15/2021 Refill [facility] [address] [place] [address] Edwige Albarado BUSH HOG OPERATOR [address] [place] [address] Social History Tobacco Use Types [...] on filedocumented in this encounter Care Teams Blow Pit Helper Relationship Specialty Start Date End Date Marguerite Wade FNP [address] [place] [address] PCP - General Internal Medicine 07/16/18 documented as of this encounter
--- OUTSIDE RECORDS SUMMARY | 2025-03-18 08:41 | XMS_ITS | Encounter Summary ---
Author Organization [facility] Address [address] [place] [address] Phone Care Team Providers Care Hardwood Floor Sander Name Role Phone Marguerite Wade LILLIE Primary Care Provider [phone] Encounter Details Date Type Department Care Team (Late st Contact Info) Description 11/19/2019 [facility] Only [facility] [address] [place] [address] Mendez Reyes MD [address] [place] [address] Chronic kidney disease stage 2 [...] [facility] - 01/12/2020 9:10 AM CDT [facility] [employer] [facility] [place] # [id number] [address] [place], [place] [address] DIRECTOR: ANAID BAHENA MD [facility] [phone] Mendez Reyes MD LAB URINE ORDERABLES Fi nal Result Performing Organization Address [facility] de Phone Number [facility] * Renal [...] (Blood) 3.9 g/dL [facility] eGFR Non-Afr Irish >60 [facility] eGFR >60 [facility] Blood specimen (specimen) 01/11/2020 9:29 AM CDT Narrative [facility] - 01/12/2020 9:09 AM CDT [facility] [employer] [facility], [place] # [id number] [address] [place] [address] DIRECTOR: ANAID BAHENA MD [facility] [phone] Mendez Reyes MD LAB BLOOD ORDERABLES Fi nal Result Performing Organization Address [facility] de Phone Number [facility] documented in this encounter Visit Diagnoses Diagnosis Chronic kidney disease stage 2 documented in this encounter Care Teams Hardwood Floor Sander Relationship Specialty Start Date End Date Marguerite Wade FNP [address] [place] [address] PCP - General Internal Medicine 07/16/18 documented as of this encounter
--- OUTSIDE RECORDS SUMMARY | 2025-03-18 08:41 | XMS_ITS | Encounter Summary ---
Author Organization [facility], [facility] Address [address] [place] [address] Phone Care Team Providers Care Flat Folding Machine Operator Name Role Phone Marguerite Wade LILLIE Primary Care Provider [phone] Encounter Details Date Type Department Care Team (Late st Contact Info) Description 08/13/2018 Orders Only [facility], [facility] [address] [place] [address] Mendez Reyes MD [address] [place] [address] Persistent proteinuria Social History Tobacco [...] Narrative [facility] - 07/22/2018 11:18 AM [facility], [facility] # [id number], [address] [place] [id number] Director: Nat Alonzo MD As ordered lab us Mendez Reyes MD LAB BLOOD ORDERABLES Fi nal Result [facility] documented in this encounter Visit Diagnoses Diagnosis Persistent proteinuria documented in this encounter Care Teams Flat Folding Machine Operator Relationship Specialty Start Date End Date Marguerite Wade FNP [address], [place] [address] PCP - General Internal Medicine 07/16/18 documented as of this encounter
--- OUTSIDE RECORDS SUMMARY | 2025-03-18 08:41 | XMS_ITS | Encounter Summary ---
Author Organization [facility] Address [address] [place] [address] Care Team Providers Care Photo Booth Operator Name Role Phone Non-Staff, Physician Primary Care Provider Unava ilable Encounter Details Date Type Department Care Team (Latest Contact Info) Description 10/25/2005 Outpatient Historical [facility] [place] [address] [facility] [address] [place] [address] Marguerite Wade, [employer] [address] [place] [address] Pain in Joint, Shoulder Region (Primary Dx); Urinary Frequency Social History Tobacco Use Types Packs/Day Years Used Date Smoking Tobacco: Never Assessed Comments Unknown Sex and Gender Information Value Date Recorded Sex Assigned at Not on file Legal Sex Female 2:51 AM [employer] Gender Identity Not on file Sexual Orientation Not on file documented as of this encounter Plan of Treatment Not on file documented as of this encounter Visit Diagnoses Diagnosis Pain in joint, shoulder region- Primary Urinary frequency documented in this encounter Care Teams Photo Booth Operator Relationship Specialty Start Date End Date Non-Staff, Physician NO ADDRESS ON FILE PCP - General 12/15/19 documented as of this encounter
--- OUTSIDE RECORDS SUMMARY | 2025-03-18 08:41 | XMS_ITS | Clinical Summary ---
Author Organization [facility] Address [address] [place] [phone] Care Team Providers Care Metal Grinder Name Role Phone Unavailable Primary Care Provider Unavailabl e Allergies Active Allergy Reactions Criticality Noted Date Comments Alpha-Gal (Vhlzynqgv-Mpodq-6,3-G alactose) Nausea and Vomiting Low 11/11/2024 Quinine Other (See Comments) 02/02/2023 Lowered platelet - petechiae Ropinirole Unknown 12/17/2022 Doesn't remember Medications Insulin Turlock, Disposable, 31 gauge x 5/16 Needle Use daily.dx:e11.0. 100 Each 2 8 Active lancets (OneTouch Delica Plus Lancet) 33 gauge TEST BLOOD SUGAR ONCE DAILY BEFORE BREAKFAST. MAKE APPOINTMENT WITH PRIMARY DOCTOR PRIOR TO NEXT REFILL. 100 Each 1 0 Active ipratropium-albu teroL (COMBIVENT RESPIMAT) 20-100 mcg/actuation Mist INHALE 1 PUFF BY MOUTH EVERY 6 HOURS 12 Gram 2 0 Active Additional Information Patient taking differently: 1 Puff Inhalation EVERY 6 HOURS PRN, Reported on 01/05/2025 blood sugar diagnostic StripIndications :Type 2 diabetes mellitus with microalbuminuria , without long-term current use of insulin ([facility]) Daily before breakfast. 100 Strip 2 8 Active albuterol HFA 90 mcg inhaler INHALE 1 PUFF BY MOUTH EVERY 4 HOURS NEEDED FOR SHORTNESS OF BREATH.. 6.7 Gram 2 8 Active Additional Information Patient taking differently: 2 Puff Inhalation EVERY 8 HOURS PRN, Reported on 01/05/2025 Blood-Glucose Meter KitIndications:T ype 2 diabetes mellitus with microalbuminuria , without long-term current use of insulin ([facility]) Test daily before breakfast. 1 Kit 0 8 Active buPROPion HCL (WELLBUTRIN XL) 300 mg Extended Release 24 hour tablet Take 300 mg by mouth daily in the morning. Active budesonide-formo teroL (SYMBICORT) 160-4.5 mcg/actuation HFA [...] 2 times daily as needed for Anxiety. 3 Active hydroxychloroqui ne (PLAQUENIL) 200 mg tablet [...] 4 5 Active CPAP / BIPAP supplies Resmed VPAP-S [...] Dr. Hien garcia. Diagnosis: G47.33 1 Each 5 Active lactulose (ENULOSE) 10 gram/15 mL oral solution Take 45 mL by mouth 3 times daily as needed for Constipation. 237 mL 5 Active Additional Information Patient taking differently:30 Gram OralTHREE TIMES DAILY, Reported on 01/05/2025 QUEtiapine (SEROquel) 50 mg tablet Take 50 mg by mouth daily at bedtime. 5 Active FreeStyle Jack 3 Plus Sensor Device CHANGE EVERY 15 DAYS 5 Active FreeStyle Jack 3 Millen use as directed 5 Active flecainide (TAMBOCOR) 100 mg tablet Take 1 Tablet (100 mg) by mouth every 12 hours. 60 Tablet 3 11/13/2024 3:59 PM CDT 5 Active insulin glargine (LANTUS) 100 unit/mL pen syringeIndicatio ns:Uncontrolled type 2 diabetes mellitus with hypoglycemia without coma (CMS/HCC) Inject 55 Units by subcutaneous injection daily with breakfast. Please follow-up closely with PCP for further dose adjustments 15 mL 5 Active Additional Information Patient taking differently: 65 UnitssubCUT DAILY WITH BREAKFAST, Please follow-up closely with PCP for further dose adjustments, Reported on 01/05/2025 diphenhydrAMINE (BENADRYL) 25 mg tablet Take 25 mg by mouth every 8 hours as needed for Allergies. Active ensifentrine 3 mg/2.5 mL Suspension for Nebulization Take 3 mg by inhalation 2 times daily. Active fluticasone propionate (FLONASE) 50 mcg/spray [place], Suspension nasal inhaler Administer 2 Sprays in [...] mouth daily with breakfast. Active oxygen home deliveryIndicati ons:Nocturnal hypoxia Home Oxygen Concentrator yes at 0 L/M Rest, 0 L/M Activity, 4 L/M Sleep, Delivery Device: Nasal Cannula Portability: no, 0 L/M Rest, 0 L/M Activity, May provide device best for patient needs(E system,home fill, conserving device) Length of Need: 99 months 1 Each 5 Active overnight pulse oximetryIndicati ons:Moderate COPD (chronic obstructive pulmonary disease) (CMS/HCC),Noctur nal hypoxia Patient needs 4 L O2 with sleep 1 Each 5 Active Active Problems Problem Noted Date [...] Encounters Date Type Department Care Team Description 02/02/2025 External Device Data STL ABSTRACTION Provider, Abstract 01/14/2025 Orders Only [facility] Pulmonology [address] [place] [phone] Mayra Lopez Moderate COPD (chronic obstructive pulmonary disease) ([facility]); Nocturnal hypoxia 01/14/2025 Orders Only [facility] Pulmonology [address] [place] [phone] Mayra Lopez Moderate COPD (chronic obstructive pulmonary disease) ([facility]); Nocturnal hypoxia 01/14/2025 Results Follow-Up [facility] Pulmonology [address] [place] [phone] Shannon Anglin NP PULSE OXIMETRY, OVERNIGHT 01/13/2025 Orders Only [facility] Pulmonology [address] [place] [phone] Shannon Anglin NP 01/05/2025 3:47 PM CDT - 01/05/2025 7:11 PM CDT Emergency [facility] Emergency Medicine [address] [place] [phone] Magdiel Alcantar MD COPD with exacerbation ([facility]) (Primary Dx) Discharge Disposition: Home or Self Care 12/31/2024 Chart Note [facility] Pulmonology [address] [place] [phone] Shannon Anglin NP 12/31/2024 Orders Only [facility] Pulmonology [address] [place] [phone] John Mayra Moderate COPD (chronic obstructive pulmonary disease) (CMS/HCC) (Primary Dx); Nocturnal hypoxia from Last 3 Months Immunizations Immunization Administration [...] on file Legal Sex Female 8:11 AM DRIVERS' CASH CLERK Gender Identity Not on file Sexual [...] Care Team (Late st Contact Info) Description 04/13/2025 1:45 PM DRIVERS' CASH CLERK [employer] [facility] [place] [address] [place] [address] Shannon Anglin NP [address] [place] [address] 06/11/2025 1:30 PM DRIVERS' CASH CLERK [employer] [facility] [place] [address] [place] [address] Elisha Stanford MD [address] [place] [address] Health Maintenance Due Date Last Done Comments ZOSTER VACCINE (1 of 2) 1979 HPV/Cotest (21-29) 1981 CERVICAL CANCER SCREENING 1990 HPV/Cotest (30-65) 1990 PAP SMEAR 1990 FIT-DNA Q 3 years 2005 FIT/FOBT Q 1 year 2005 Flex Sig/CT Colonography Q 5 years 2005 Lung Cancer Screening 2010 RSV VACCINE (60+ or ) (1 - Risk 50-74 years 1-dose series) 2010 DIABETES ANNUAL FOOT EXAM 03/12/2019 03/12/2018, DIABETES ANNUAL RETINAL EXAM 12/13/2019 12/12/2018 DIABETES MICROALBUMIN ANNUAL SCREEN 01/10/2021 01/11/2020, 07/03/2018, [...] 09/10/2032 09/10/2022 Medical Devices Implanted Type Area Binder And Wrapper Packer Device Identifier Shelf Expiration Date Model / Serial / Lot Mesh Marlex Sheet [id number] - [id number] Implanted:Qty: 1 on 07/15/2015 by Doc Bolton MD Mesh N/A: Abdomen CR [employer] 08/11/2015 [id number] / / [id number] Stent Contour [id number] - [id number] Implanted:Qty: 1 on 09/11/2024 by Ramirez Damian MD at [facility] Stent Right: 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 [id number] 04/28/2027 [id number] / / [id number] Procedures Procedure Name Priority Date/Time Associated Diagnosis [...] W/REFLEX MICROSCOPIC Stat 01/05/2025 3:49 PM CDT HEMOGLOBIN A1C Routine 11/06/2024 11:25 PM CDT LIPID PANEL Routine 04/21/2024 4:07 AM DRIVERS' CASH CLERK MICROALBUMIN/CREATINI NE RATIO, RANDOM UR Routine 01/11/2020 9:29 AM CDT MAMMO SCREEN BILAT W OR WO CAD Routine 12/17/2018 1:44 PM CDT Encounter for screening mammogram for malignant neoplasm of breast ENDOSCOPY, COLON, SCREENING 08/03/2014 12:00 AM CDT from Last 3 Months or Most Recently Relevant to Health Maintenance Results * PULSE OXIMETRY, OVERNIGHT (01/07/2025 1:41 PM CDT) Shannon Anglin LIP CUTTER AND SCORER RESPIRATORY CARE ORDERABLES Fin al Result * PULSE OXIMETRY, OVERNIGHT (01/07/2025 1:40 PM CDT) Shannon Anglin LIP CUTTER AND SCORER RESPIRATORY CARE ORDERABLES Fin al Result * TELEMETRY REPORT (01/06/2025 8:28 AM CDT) us Provider Scanning ECG ORDERABLES Final Result * (ABNORMAL) TROPONIN 2 HR, 5TH GEN (01/05/2025 6:03 PM CDT) TROPONIN T, 2 HR 5TH GEN 35(H) <=10 ng/L 01/05/2025 6:29 PM CDT [facility] DELTA 2HR TROPONIN T -3 See Interp. 01/05/2025 6:29 PM CDT [facility] Blood BLOOD SPECIMEN / Unknown Collection / Unknown 01/05/2025 6:03 PM CDT 01/05/2025 6:13 PM CDT Narrative [facility] - 01/05/2025 6:29 PM CDT Troponin elevated. Delta not changing. us Magdiel Alcantar MD CHEMISTRY ORDERABLES Final Resu lt [facility] CLIA # [id number] [address] [place] [address] * CTA CHEST ABD PELVIS W AND/OR [...] AP 1 VW (01/05/2025 4:06 PM CDT) Anatomical Region Laterality Modality Chest [...] BASELINE, 5TH GEN (01/05/2025 3:53 PM CDT) TROPONIN T, BASELINE 5TH GEN 38(H) <=10 ng/L 01/05/2025 4:32 PM CDT [facility] Blood Collection / Unknown 01/05/2025 3:53 PM CDT 01/05/2025 4:04 PM CDT Narrative [facility] - 01/05/2025 4:32 PM CDT Troponin elevated. us Magdiel Alcantar MD CHEMISTRY ORDERABLES Final Resu lt [facility] CLIA # [id number] [address] [place] [address] * (ABNORMAL) LACTIC ACID (01/05/2025 3:53 PM CDT) LACTIC ACID 2.1(H) <=2.0 mmol/L 01/05/2025 4:21 PM CDT [facility] Blood BLOOD SPECIMEN / Unknown Collection / Unknown 01/05/2025 3:53 PM CDT 01/05/2025 4:04 PM CDT us Magdiel Alcantar MD CHEMISTRY ORDERABLES Final Resu [facility] CLIA # [id number] [address] [place] [address] * (ABNORMAL) CBC WITH DIFFERENTIAL (01/05/2025 3:53 PM CDT) WBC 9.8 4.0 - 10.0 K/uL 01/05/2025 4:06 PM CDT [facility] RBC 5.15 3.93 - 5.22 M/uL 01/05/2025 4:06 PM CDT [facility] HEMOGLOBIN 14.6 11.2 - 15.7 g/dL 01/05/2025 4:06 PM CDT [facility] HEMATOCRIT 42.4 34.1 - 44.9 % 01/05/2025 4:06 PM CDT [facility] MCV 82.3 79.4 - 94.8 fL 01/05/2025 4:06 PM CDT [facility] MCH 28.3 25.6 - 32.2 pg 01/05/2025 4:06 PM CDT [facility] MCHC 34.4 32.2 - 35.5 g/dL 01/05/2025 4:06 PM [facility] RDW 13.5 11.0 - 14.5 % 01/05/2025 4:06 PM [facility] RDW-STDEV 40.5 36.9 - 56.9 fL 01/05/2025 4:06 PM [facility] PLATELETS 261 163 - 337 K/uL 01/05/2025 4:06 PM [facility] MPV 9.0(L) 10.0 - 14.8 fL 01/05/2025 4:06 PM [facility] NEUTROPHILS 77(H) 34 - 71 % 01/05/2025 4:06 PM [facility] LYMPHOCYTES 14(L) 19 - 52 % 01/05/2025 4:06 PM [facility] MONOCYTES 8 5 - 13 % 01/05/2025 4:06 PM [facility] EOSINOPHILS 1 1 - 6 % 01/05/2025 4:06 PM [facility] BASOPHILS 0 0 - 1 % 01/05/2025 4:06 PM [facility] IMMATURE GRANULOCYTES 0 % 01/05/2025 4:06 PM [facility] NEUTROPHIL ABSOLUTE 7.48(H) 1.56 - 6.13 K/uL 01/05/2025 4:06 PM [facility] LYMPHOCYTE ABSOLUTE 1.39 1.20 - 3.40 K/uL 01/05/2025 4:06 PM [facility] MONOCYTE ABSOLUTE 0.73(H) 0.24 - 0.36 K/uL 01/05/2025 4:06 PM [facility] EOSINOPHIL ABSOLUTE 0.10 0.04 - 0.36 K/uL 01/05/2025 4:06 PM [facility] BASOPHILS ABSOLUTE 0.03 0.01 - 0.08 K/uL 01/05/2025 4:06 PM [facility] IMMATURE GRANULOCYTES ABSOLUTE 0.04 K/uL 01/05/2025 4:06 PM [facility] Blood Collection / Unknown 01/05/2025 3:53 PM CDT 01/05/2025 4:04 PM CDT Result Arlene Alcantar MD HEMATOLOGY ORDERABLES Final Res ult [facility] CLIA # [id number] [address] [place] [address] * (ABNORMAL) PTT (01/05/2025 3:53 PM CDT) PTT 47.0(H) 25.1 - 35.4 seconds 01/05/2025 4:18 PM CDT [facility] Blood Collection / Unknown 01/05/2025 3:53 PM CDT 01/05/2025 4:04 PM CDT us Magdiel Alcantar MD HEMATOLOGY ORDERABLES Final Res ult Performing Organization Address [facility] Co de Phone Number [facility] CLIA # [id number] [address] [place] [address] * SEDIMENTATION RATE (01/05/2025 3:53 PM CDT) ESR (SEDIMENTATION RATE) 26 0 - 30 mm/Hr 01/05/2025 4:21 PM CDT [facility] Blood Collection / Unknown 01/05/2025 3:53 PM CDT 01/05/2025 4:04 PM CDT Narrative [facility] - 01/05/2025 4:21 PM CDT Tube Lot: [id number] Exp Date: 05/12/2026 QC1 LOT [id number] EXP.05/17/2025 QC2 LOT [id number] EXP.05/17/2025 us Magdiel Alcantar MD HEMATOLOGY ORDERABLES Final Res ult Performing Organization Address City/[facility]/ZIP Co de Phone Number [facility] CLIA # [id number] [address] [place] [address] * (ABNORMAL) PROTIME-INR (01/05/2025 3:53 PM CDT) PROTIME 21.6(H) 12.1 - 14.3 Seconds 01/05/2025 4:18 PM CDT [facility] INR 1.9(H) 0.9 - 1.1 01/05/2025 4:18 PM CDT [facility] Blood Collection / Unknown 01/05/2025 3:53 PM CDT 01/05/2025 4:04 PM CDT us Magdiel Alcantar MD HEMATOLOGY ORDERABLES Final Res ult [facility] CLIA # [id number] [address] [place] [address] * D-DIMER (01/05/2025 3:53 PM CDT) [facility] D-DIMER QUANT <0.15 <0.50 ug/mL FEU 01/05/2025 4:21 PM CDT [facility] Blood Collection / Unknown 01/05/2025 3:53 PM CDT 01/05/2025 4:04 PM CDT Narrative [facility] - 01/05/2025 4:21 PM CDT D-Dimer assay [...] ORDERABLES Final Res ult Performing Organization Address [facility] de Phone Number [facility] CLIA # [id number] [address] [place] [address] * (ABNORMAL) C-REACTIVE PROTEIN (01/05/2025 3:53 PM CDT) CRP 8.0(H) <5.0 mg/L 01/05/2025 4:32 PM CDT [facility] Blood Collection / Unknown 01/05/2025 3:53 PM CDT 01/05/2025 4:04 PM CDT us Magdiel Alcantar MD CHEMISTRY ORDERABLES Final Resu lt Performing Organization Address [facility] Phone Number [facility] CLIA # [id number] [address] [place] [address] * TSH (01/05/2025 3:53 PM CDT) TSH 1.31 0.27 - 4.20 uIU/mL 01/05/2025 4:32 PM CDT [facility] Blood Collection / Unknown 01/05/2025 3:53 PM CDT 01/05/2025 4:04 PM CDT us Magdiel Alcantar MD CHEMISTRY ORDERABLES Final Resu lt Performing Organization Address [facility] Co de Phone Number [facility] CLIA # [id number] [address] [place] [address] * (ABNORMAL) BRAIN NATRIURETIC PEPTIDE, BNP OR PROBNP (01/05/2025 3:53 PM CDT) PROBNP, N TERMINAL 648(H) 0 - 125 pg/mL 01/05/2025 4:32 PM CDT [facility] Comment: INTERPRETIVE COMMENT based on [...] ORDERABLES Final Resu lt Performing Organization Address [facility]/ZIP Co de Phone Number [facility] CLIA # [id number] [address] [place] [address] * MAGNESIUM LEVEL (01/05/2025 3:53 PM CDT) MAGNESIUM 1.7 1.6 - 2.4 mg/dL 01/05/2025 4:32 PM CDT [facility] Blood Collection / Unknown 01/05/2025 3:53 PM CDT 01/05/2025 4:04 PM CDT Result Arlene Alcantar MD CHEMISTRY ORDERABLES Final Resu lt Performing Organization Address City/[facility]/ZIP Co de Phone Number [facility] CLIA # [id number] [address] [place] [address] * LIPASE (01/05/2025 3:53 PM CDT) LIPASE 26 13 - 60 U/L 01/05/2025 4:32 PM CDT [facility] Blood Collection / Unknown 01/05/2025 3:53 PM CDT 01/05/2025 4:04 PM CDT us Magdiel Alcantar MD CHEMISTRY ORDERABLES Final Resu lt [facility] CLIA # [id number] [address] [place] [address] * (ABNORMAL) COMPREHENSIVE METABOLIC PANEL (01/05/2025 3:53 PM CDT) SODIUM 135(L) 136 - 145 mmol/L 01/05/2025 4:32 PM [facility] POTASSIUM 4.7 3.5 - 5.1 mmol/L 01/05/2025 4:32 PM [facility] Comment:Slightly hemolyzed. Result may be falsely elevated. CHLORIDE 95(L) 98 - 107 mmol/L 01/05/2025 4:32 PM [facility] CO2 25 22 - 29 mmol/L 01/05/2025 4:32 PM [facility] CALCIUM 10.2 8.8 - 10.2 mg/dL 01/05/2025 4:32 PM [facility] BUN 15 8 - 23 mg/dL 01/05/2025 4:32 PM [facility] CREATININE 1.00(H) 0.51 - 0.95 mg/dL 01/05/2025 4:32 PM [facility] GLUCOSE 202(H) 74 - 99 mg/dL 01/05/2025 4:32 PM [facility] TOTAL PROTEIN 7.2 6.6 - 8.7 g/dL 01/05/2025 4:32 PM [facility] ALBUMIN 4.3 3.5 - 5.2 g/dL 01/05/2025 4:32 PM [facility] BILIRUBIN TOTAL 0.3 0.0 - 1.2 mg/dL 01/05/2025 4:32 PM [facility] ALKALINE PHOSPHATASE 97 35 - 104 U/L 01/05/2025 4:32 PM [facility] AST 20 0 - 35 U/L 01/05/2025 4:32 PM [facility] Comment:Hemolysis present. R esult may be falsely elevated. ALT 9 0 - 35 U/L 01/05/2025 4:32 PM CDT [facility] GFR >60 >=60 mL/min/1.7 3 sq meter 01/05/2025 4:32 PM CDT [facility] Comment:eGFR calculated with 2020 CKD-EPI equation. Vegetarian diet, extremely high or low muscle mass, and may affect results. Cystatin C with Glomerular Filtration Rate is a suitable alternative for these patients. ANION GAP 15 5 - 20 mmol/L 01/05/2025 4:32 PM CDT [facility] Blood Collection / Unknown 01/05/2025 3:53 PM CDT 01/05/2025 4:04 PM CDT us Magdiel Alcantar MD CHEMISTRY ORDERABLES Final Resu lt [facility] CLIA # [id number] [address] [place] [address] * URINALYSIS WITH REFLEX MICROSCOPIC (01/05/2025 3:49 PM CDT) COLOR UA Yellow Pale to Dark Yellow 01/05/2025 4:12 PM CDT [facility] CLARITY UA Clear Clear 01/05/2025 4:12 PM CDT [facility] SPECIFIC GRAVITY UA 1.010 1.003 - 1.035 01/05/2025 4:12 PM T [facility] PH UA 7.0 5.0 - 8.0 01/05/2025 4:12 PM CDT [facility] LEUKOCYTE ESTERASE UA Negative Negative 01/05/2025 4:12 PM CDT [facility] NITRITE UA Negative Negative 01/05/2025 4:12 PM CDT [facility] PROTEIN UA Negative Negative 01/05/2025 4:12 PM CDT [facility] GLUCOSE UA Negative Negative 01/05/2025 4:12 PM CDT [facility] KETONES UA Negative Negative 01/05/2025 4:12 PM CDT [facility] UROBILINOGEN UA 0.2 <2.0 mg/dL 4:12 PM CDT [facility] BILIRUBIN UA Negative Negative 01/05/2025 4:12 PM CDT [facility] BLOOD UA Negative Negative 01/05/2025 4:12 PM CDT [facility] Urine URINE SPECIMEN OBTAINED BY CLEAN CATCH PROCEDURE / Unknown Collection / Unknown 01/05/2025 3:49 PM CDT 01/05/2025 4:09 PM CDT us Magdiel Alcantar MD URINE ORDERABLES Final Result [facility] CLIA # [id number] [address] [place] [address]186 * (ABNORMAL) HEMOGLOBIN A1C (11/06/2024 11:25 PM CDT) HEMOGLOBIN A1C 8.6(H) <=5.6 % 11/07/2024 8:31 AM CDT [facility] EST. AVG GLUCOSE, A1C 200 mg/dL 11/07/2024 8:31 AM CDT [facility] Blood Venipuncture / Unknown 11/06/2024 11:25 PM CDT 11/07/2024 12:01 AM CDT Narrative [facility] - 11/07/2024 8:31 AM CDT HGB A1C INTERPRETATION NORMAL: <5.7% PRE-DIABETES: 5.7 - 6.4% DIABETES: 6.5% OR GREATER us Juaquin Obregon DO CHEMISTRY ORDERABLES Final R esult [facility] CLIA # [id number] [address] [facility] [place] [address] * (ABNORMAL) LIPID PANEL (04/21/2024 4:07 AM DRIVERS' CASH CLERK) CHOLESTEROL 122 <200 mg/dL 04/21/2024 6:52 AM [facility] TRIGLYCERIDE 127 <150 mg/dL 04/21/2024 6:52 AM [facility] HDL 35(L) 40 - 59 mg/dL 04/21/2024 6:52 AM [facility] LDL CALCULATED 62 <100 mg/dL 04/21/2024 6:52 AM [facility] NON-HDL CHOLESTEROL 87 <130 mg/dL 04/21/2024 6:52 AM [facility] Blood Venipuncture / Unknown 04/21/2024 4:07 AM DRIVERS' CASH CLERK 04/21/2024 4:26 AM [facility] - 04/21/2024 6:[address] [facility] TOTAL CHOLESTEROL mg/dL Desirable <200 Borderline high [...] Reference Ranges for Lipid Panels (NCEP/AMA) . us Ravin Diaz MD CHEMISTRY ORDERABLES Fi nal Result [facility] CLIA # [id number] [facility] [address] [place], [place] [address] * (ABNORMAL) MICROALBUMIN/CREATININE RATIO, RANDOM UR (01/11/2020 9:29 AM CDT) MICROALBUMIN, URINE 10.3 No Reference Range mg/dL 01/11/2020 10:30 AM CDT [facility] CREATININE, URINE 22.8(L) 29.0 - 226.0 mg/dL 01/11/2020 10:30 AM CDT [facility] Comment:Reference Range vari es with fluid intake and diet. MICROALBUMIN/ CREAT RATIO, UR 451.8(H) <25.0 mg/g 01/11/2020 10:30 AM CDT [facility] Urine URINE SPECIMEN OBTAINED BY CLEAN CATCH PROCEDURE / Unknown Collection / Unknown 01/11/2020 9:29 AM CDT 01/11/2020 9:29 AM CDT Narrative [facility] - 01/11/2020 10:30 AM CDT Condition Microalbumin/Creat ratio Normal Males <17 Normal Females <25 Microalbuminuria Males 17-299 Microalbuminuria Females 25-299 Overt proteinuria >=300 us Mendez Reyes MD URINE ORDERABLES Final Resul t [id number] [address] [place] [address] [facility] CLIA # [id number] [address] [place] [address] * MAMMO SCREEN BILAT W OR WO CAD (12/17/2018 1:44 PM CDT) Anatomical Region Laterality Modality Breast Bilateral Other Impressions 12/18/2018 9:58 AM CDT : Superficial mass inferior medially, anteriorly, on the left, will require additional evaluation. Patient will be contacted by the [facility] to schedule the recommended follow-up appointment. [id number] Narrative 12/18/2018 9:58 AM CDT Bilateral Digital [...] Center to schedule the recommended follow-up appointment. [id number] Shaun Briones MD MAMMO ORDERABLES Final Re sult * ENDOSCOPY, COLON, SCREENING (08/03/2014 12:00 AM CDT) Marguerite Wade DRY PAN CHARGER GI PROCEDURE ORDERABLES Fin al Result from Last 3 Months or Most Recently Relevant to Health Maintenance Insurance MEDICAID [facility] DUAL COMPLETE PPO DSNP [facility] [id number] RX [employer] Member Subscriber Plan / Payer (Ef fective 2024-Present) Name:Alissa Beck Relation to Subscriber:Self Name:Alissa Beck Subscriber ID:Not on file Payer ID:Not on file Group ID:[id number] Type:RX Medicare Part D Address: [address] Advance Directives For more information, please contact: [phone] Documents on File Type Date Recorded Patient Chart Picker Expl anation Advance Directive POA 08/31/2024 8:59 [...]
--- NOTE | 2025-03-18 08:58 | XRR_ITS ---
PROCEDURE INFORMATION: Exam: XR Right Hip Exam date and time: 03/18/2025 10:38 AM Age: 64 years old Clinical indication: Hip pain; Right hip; Additional info: R hip and tailbone pain S/P fall TECHNIQUE: Imaging protocol: Radiologic exam of the right hip. Views: 1 view hip with pelvis when performed. COMPARISON: CR XR KUB [id number] 09/08/2024 11:53 AM FINDINGS: Bones/joints: No displaced fracture, dislocation, or destructive osseous changes. Alignment is preserved. Mild degenerative change in the hip. Subjectively decreased bone mineral density. Small sclerotic density seen in the right proximal femur which has been seen on prior exams dating back to 2021, favoring benign/indolent process. XR/XR hip RT 2-3V wo/w pel* [id number] IMPRESSION: 1. Decreased bony mineralization without displaced fracture or dislocation in the right hip. 2. Mild degenerative change.
--- NOTE | 2025-03-18 08:58 | CT_ITS ---
WS: [id number] CT HEAD TECHNIQUE: Noncontrast CT of the head obtained from the skullbase to the vertex. CLINICAL INFORMATION: fall, head trauma, on xarelto COMPARISON: 06/02/2024 DLP: 1204.[address] scans at [facility] use at least one of these dose optimization techniques: automated exposure control; mA and/or kV adjustment per patient size (includes targeted exams where dose is matched to clinical indication); or iterative reconstruction. FINDINGS: No evidence of intracranial hemorrhage or mass effect. Ventricular system and basal cisterns are patent. Mild small vessel changes with mild parenchymal volume loss. No extra-axial fluid collections. No evidence of mass or mass effect. Vascular calcification. Paranasal sinuses and mastoid air cells are well aerated. .Normal visualized soft tissues. CT/CT head wo con* [id number] IMPRESSION: 1. No evidence of intracranial hemorrhage or mass effect. 2. No acute intracranial findings.
--- NOTE | 2025-03-18 08:58 | ECG_ITS ---
[facility] Test Date: 2025-03-18 Pat Name: Alissa Beck Department: Room: Gender: Female Chargeback Analyst: : 1960 Requested By: Nando Howe Order Number: [id number] Olegario MD: Jonathon Pacheco M.D. Measurements Intervals Alba Rate: 63 P: 32 MD: 233 QRS: -42 QRSD: 174 T: 70 QT: 480 QTc: 495 Interpretive Statements SINUS RHYTHM WITH FIRST DEGREE AV BLOCK WITH OCCASIONAL SUPRAVENTRICULAR PREMATURE COMPLEXES LEFT AXIS DEVIATION [QRS AXIS < -30] RIGHT BUNDLE BRANCH BLOCK [120+ ms QRS DURATION, UPRIGHT V1, 40+ ms S IN I/aVL/V4/V5/V6] Compared to ECG 12/28/2024 13:35:09 First degree AV block now present Left-axis deviation now present Right bundle-branch block now present Bradycardia, nonsinus no longer present Electronically Signed On 03-20-2025 13:02:05 [employer] CERTIFIED NETWORK ASSOCIATE by Jonathon Pacheco M.D. [email or web address]
--- NOTE | 2025-03-18 08:58 | XRR_ITS ---
PROCEDURE INFORMATION: Exam: XR Chest Exam date and time: 03/18/2025 10:38 AM Age: 64 years old Clinical indication: Shortness of breath; Additional info: Copd, mildly hypoxic TECHNIQUE: Imaging protocol: Radiologic exam of the chest. Views: 1 view. COMPARISON: CR XR chest 2V* [id number] 12/28/2024 12:44 PM FINDINGS: Limited rotated portable radiograph of the chest was obtained. Lungs: Mild linear opacity in the right lung base, favored to represent subsegmental atelectasis. No consolidative airspace disease seen. Pleural spaces: No pneumothorax. No significant size pleural effusion identified. Heart/Mediastinum: The cardiac silhouette is normal in size. Bones/joints: There is no acute osseous abnormality. XR/XR chest 1V portable [id number] IMPRESSION: 1. Limited rotated portable radiograph of the chest was obtained. 2. Mild linear opacity in the right lung base, favored to represent subsegmental atelectasis. No consolidative airspace disease seen.
[2025-03-18 09:45] LABS: Glucose Urine UA Negative (Normal); Nitrate Urine Negative (Negative); Specific Gravity, Urine 1.010 (1.005-1.030)
[2025-03-18 09:45] LABS: Base Excess VBG -5.5 mmol/L (-3.0-3.0); Blood Gas LPM 2.0 %; Blood Gas Operator Identificat WACI; Blood Gas Sample Type Venous; HCO3 VBG 26.6 mmol/L (24-28); PO2 VBG 34.3 mmHg (25-40); Venous Blood Gas Hematocrit 47.7 % (37-47)
[2025-03-18 09:46] LABS: pH VBG 7.11 (7.32-7.42)
[2025-03-18 09:47] LABS: PCO2 VBG 84.6 mmHg (41-51)
[2025-03-18 09:51] LABS: Hematocrit 43.8 % (36-47); Hemoglobin 14.80 g/dL (11.27-16.99); Mean Corpuscular HGB Conc 33.8 g/dL (30-55); Mean Corpuscular Hemoglobin 29.0 pg (27-33); Mean Corpuscular Volume 85.7 fl (85-98); Nucleated Red Blood Cells % 0 %; Platelet Count 238 10^3/cmm (157-399); Red Blood Count 5.11 10^6/uL (3.85-5.65); White Blood Count 10.91 10^3/uL (3.29-11.43)
[2025-03-18 09:54] LABS: Respiratory Syncytial Virus Ce NEGATIVE (Negative); SARS-CoV-2 PCR NEGATIVE (Negative)
[2025-03-18 10:07] LABS: Anion Gap 15.8 (5-19); Blood Urea Nitrogen 14 mg/dL (8-23); Calcium 9.2 mg/dL (8.5-10.5); Carbon Dioxide 27 mmol/L (22-29); Chloride 93 mmol/L (98-107); Creatinine Clr Calc Pharmacy 96.1526; Glucose 79 mg/dL (65-115); Osmolality Calculated 273 mOsm/kg (285-295); Potassium 3.8 mmol/L (3.5-5.1); Sodium 132 mmol/L (136-145)
[2025-03-18] MEDS: magnesium sulfate premix 1 GM/100 ML PIGGYBACK IV (10:16)
[2025-03-18] MEDS: methylPREDNISolone sod succ 40 mg/mL INJ 60 MG IV (10:17)
--- NOTE | 2025-03-18 11:06 | W.ED.EXTPRO ---
HPI - Extremity Problem General: Chief complaint: Extremity Injury, Lower Stated complaint: fall - right hip pain Time Seen by Provider: 03/18/25 08:37 History of Present Illness: 64-year-old female past medical history significant for hypertension, hyperlipidemia, atrial fibrillation, COPD, on home oxygen 4 L at nighttime not oxygen dependent during the day, diastolic CHF, Sjogren syndrome, APLS, presenting to the emergency department with 2 falls since last night with generalized weakness, she did hit her head, she endorses a mild headache, she endorses mild shortness of breath and increased cough over the last couple of days nonspecifically, denies fever, denies chest pain, denies abdominal pain vomiting or diarrhea, endorses mild right hip pain and right shoulder pain since the fall but reports that her right shoulder pain is more chronic and has been present prior to the fall. Related Data Home Medications ?Medication ?Instructions ?Recorded ?Confirmed oxygen-air delivery systems 01/17/22 03/12/25 acetaminophen 325 mg tablet 325 mg PO QID PRN Pain 11/19/22 03/12/25 ibuprofen 200 mg tablet 200 mg PO Q6H PRN Pain 11/19/22 03/12/25 CPAP (Standard Cpap) 08/07/23 03/12/25 atorvastatin 20 mg tablet 20 mg PO BEDTIME 01/25/25 03/12/25 cholecalciferol (vitamin D3) 1,250 50,000 unit PO Q7D 01/25/25 03/12/25 mcg (50,000 unit) capsule lactulose 10 gram/15 mL oral 30 g PO TID 01/25/25 03/12/25 solution (Constulose) Previous Rx's ?Medication ?Instructions ?Recorded blood sugar diagnostic (Blood #100 ea 06/30/19 Glucose Test strips) blood-glucose meter (Blood Glucose #1 ea 01/22/20 Monitoring kit) pen needle, diabetic 32 gauge x #100 ea 02/15/22 (BD Ultra-Fine Corine Pen Needle) nebulizer and supplies #1 ea 02/14/23 afflovest #1 ea 02/26/23 back brace #1 ea 04/15/23 [facility] #1 ea 06/18/23 insulin pump cart,auto,BT,G6/7 #5 ea 11/17/24 (Omnipod 5 G6-G7 Pods (Gen 5) subcutaneous cartridge) insulin pump cartridge,auto #1 ea 11/17/24 dose,BT,G6/G7 with controller subcutaneous (Omnipod 5 G6-G7 Intro Kit(Gen 5) subcutaneous cartridge and controller) flecainide 100 mg tablet 100 mg PO Q12H #60 tabs 12/04/24 zolpidem 5 mg tablet (Ambien) 5 mg PO BEDTIME PRN sleep #30 tabs 12/07/24 clonazepam 0.5 mg tablet 0.5 mg PO BID PRN anxiety #60 tabs 01/05/25 flash glucose scanning reader #1 ea 01/06/25 (FreeStyle Jack 2 [place]) insulin pump cart,auto,BT,G6/L #5 ea 01/07/25 (Omnipod 5 (G6/Jack 2 Plus) subcutaneous cartridge) insulin pump cartridge,auto #1 ea 01/07/25 dose,BT,G6/L2 with controller subcutaneous (Omnipod 5 Intro Kit(G6/Yuwug4Oavc) subcutaneous cartridge) insulin glargine 100 unit/mL (3 65 unit (0.65 mL) SUBCUT QAM #45 mL 01/18/25 mL) subcutaneous pen (Lantus Solostar U-100 Insulin) insulin lispro 100 unit/mL 20 unit (0.2 mL) SUBCUT TID #30 mL 01/18/25 subcutaneous pen (Humalog KwikPen (U-100) Insulin) isosorbide mononitrate 30 mg 30 mg PO DAILY #90 tabs 01/25/25 tablet,extended release 24 hr albuterol sulfate 90 mcg/actuation 2 puff inhalation Q8H PRN 02/05/25 aerosol inhaler Shortness Of Breath Or Wheezing #8.5 grams hydroxychloroquine 200 mg tablet 200 mg PO BID #180 tabs 02/09/25 pilocarpine HCl 5 mg tablet 5 mg PO TID #90 tabs 02/09/25 prednisone 5 mg tablet 5 mg PO DAILY #90 tabs 03/01/25 Diabetic shoes #1 ea 03/02/25 blood-glucose sensor (Dexcom G7 #9 ea 03/02/25 Sensor device) blood-glucose,revenue cycle manager,cont #1 ea 03/02/25 (Dexcom G7 Manager Multimedia) gabapentin 300 mg capsule 300 mg PO TID #90 caps 03/02/25 bupropion HCl 150 mg 24 hr tablet, 450 mg (3 x 150 mg) PO DAILY 30 03/05/25 extended release days #90 tabs valsartan 160 mg tablet 160 mg PO DAILY #30 tabs 03/11/25 aripiprazole 10 mg tablet (Abilify) 10 mg PO DAILY #30 tabs 03/12/25 quetiapine 100 mg tablet (Seroquel) 100 mg PO .HS #30 tabs 03/12/25 sertraline 100 mg tablet (Zoloft) 200 mg (2 x 100 mg) PO QAM #60 tabs 03/12/25 Symbicort 160 mcg-4.5 See Rx Instructions .Route 03/15/25 mcg/actuation HFA aerosol inhaler .COMPLEX #11 grams (budesonide-formoterol) ipratropium 20 mcg-albuterol 100 See Rx Instructions .Route 03/15/25 mcg/actuation mist for inhalation .COMPLEX #4 grams (Combivent Respimat) umeclidinium 62.5 mcg/actuation See Rx Instructions .Route 03/15/25 blister powder for inhalation .COMPLEX #30 ea (Incruse Ellipta) tirzepatide 2.5 mg/0.5 mL See Rx Instructions .Route 03/16/25 subcutaneous pen injector .COMPLEX #4 mL (Mounjaro) Allergies Allergy/AdvReac Type Severity Reaction Status Date / Time Sulfa (Sulfonamide Allergy Unknown Unknown Verified 03/12/25 11:45 Antibiotics) Alpha-Gal Allergy Unknown Verified 03/12/25 11:45 (Antnghjab-Xfpir-5,3-Gala quinine (From Quine) Allergy unknown Verified 03/12/25 11:45 ropinirole (From Requip) Allergy Unknown Verified 03/12/25 11:45 PFS ED PFSH: Medical History Generalized anxiety disorder Sleep apnea Primary Sjogren's syndrome Lower extremity weakness Positive AMI (antinuclear antibody) Disorders of diaphragm Atelectasis of both lungs CHF (congestive heart failure), NYHA class III Drug-induced myopathy Recurrent pneumonia Emphysema lung Encephalopathy acute Acute and chronic respiratory failure with hypercapnia UTI (urinary tract infection) due to Enterococcus Excessive daytime sleepiness Diabetes type 2, controlled Insomnia Gross hematuria UTI (urinary tract infection) Psychiatric care Essential (primary) hypertension Chronic obstructive pulmonary disease with (acute) exacerbation Polyneuropathy, unspecified Callus Porokeratosis PVD (peripheral vascular disease) Shortness of Breath Bilateral leg edema Angina pectoris 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 with no history of malignant neoplasm AF (paroxysmal atrial fibrillation) Hypertension Tobacco abuse disorder Uncontrolled type 2 diabetes mellitus with polyneuropathy Acute DM type 2 causing complication Cannabis dependence, uncomplicated Nicotine dependence, cigarettes, with other nicotine-induced disorders Bipolar II disorder Post-traumatic stress disorder, chronic Surgical History H/O chest tube placement History of hysterectomy History of cholecystectomy History of appendectomy History of hernia repair Family History Father , AT AGE 21 Gunshot wound Mother , AT AGE 61 CAD (coronary artery disease) Other Cancer Diabetes Stroke Social History Smoking and tobacco/nicotine status: current every day tobacco/nicotine user cigarettes Packs smoked per day: 2 Years cigarettes smoked: 52 [ Other cigarette details: Started at age 10] Second hand smoke exposure: Yes Alcohol intake: current Alcohol intake frequency: holidays/special occasions only Alcohol type: other Substance/Drug Use: former Date of last use: 2020 Adopted: No Caregiver/support person: No Lives independently: Yes Household members: significant other Housing: Manufactured/Mobile home Marital status: Life Partner Number of children: 0 Number of grandchildren: 0 Highest education level completed: Some College, No Degree service: No Current occupational status: disabled 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 Current occupational exposures/hazards: No Pets and animals: Yes (3 dogs) Pets & animals: dog(s) Leisure activites: fishing and other Leisure activities details: sewing, writing, gardening Sexually active: Yes How many partners: 1 Do you think of yourself as: Lesbian/Gautam/Homosexual Current gender identity: Female Latha/Mormonism: Restorationist Special latha needs: No Agree to transfusion: Yes Female Reproductive History: Para: 0 Spontaneous abortions: No Physical Exam Narrative: EXAM NARRATIVE: Gen: A&Ox4, no acute distress, nontoxic appearing HEENT: Normocephalic, atraumatic, no scleral icterus, external ears normal, moist mucous membranes Neck: Supple, full range of motion, no observable masses Lungs: No Respiratory distress, bilateral inspiratory and expiratory wheezing with good aeration, patient currently saturating 90% on 4 L nasal cannula CV: Regular rate and rhythm, no murmur, no pitting edema to lower extremities bilaterally Abdomen: Soft, nondistended, nontender to palpation MSK: No joint swelling, FROM all 4 extremities, mild pain to palpation of the right hip without limb length discrepancies external rotation or severe pain with passive range of motion Skin: No rashes, petechiae, lesions. Normal color per patient. Neuro: Alert and oriented, no slurred speech, sensation and strength grossly intact all 4 extremities Psych: Appropriate for situation. Course Reevaluation(s): Reevaluation #1: Patient reassessed, awake and alert but blood gas showing hypercapnia with pH 7.1 pCO2 84 will start BiPAP and recheck gas in 1 hour Time: 10:00 Consultations: Consultation #1: Spoke with hospitalist Dr. Mcclelland who accepts patient for admission to floor Time: 11:59 Vital Signs: Vital signs: Vital Signs Temperature 98.1 F 03/18/25 08:34 Pulse Rate 56 L 03/18/25 11:11 Respiratory Rate 18 03/18/25 09:10 Blood Pressure 158/71 03/18/25 10:18 Pulse Oximetry 95 03/18/25 11:11 Oxygen Delivery Me thod Nasal Cannula 03/18/25 09:10 Oxygen Flow Rate 2 03/18/25 09:10 Fraction of Inspir ed Oxygen 30 03/18/25 11:11 MDM - Extremity (Nontraumatic) Medical Decision Making 64-year-old female past medical history extensive consisting of hypertension hyperlipidemia COPD CHF A-fib, autoimmune disease, presenting to the emergency department with frequent falls since last night with minor head and right hip trauma, also patient noted to be mildly hypoxic (, she does use home oxygen for nighttime but does not typically use during the day) physical exam with some expiratory wheezing suggestive of possible COPD exacerbation, given frequent falls and weakness will obtain blood gas to rule out hypercapnia, chest x-ray to assess for bacterial consolidation or lobar pneumonia, CT head and hip x-ray rule out fracture although low concern for clinically significant intracranial injury will rule out given possible head trauma mild headache and on Xarelto, reassess for disposition Lab Data Labs showing hypercapnia and respiratory acidosis with pH 7.1 pCO2 in the 80s, no anemia or leukocytosis, mild hyponatremia 132, normal kidney function, repeat VBG showing resolution of hypercapnia on BiPAP 03/18/25 09:40 03/18/25 09:40 Radiology Impressions Chest X-Ray 03/18/25 08:58 IMPRESSION: 1. Limited rotated portable radiograph of the chest was obtained. 2. Mild linear opacity in the right lung base, favored to represent subsegmental atelectasis. No consolidative airspace disease seen. Head CT 03/18/25 08:58 IMPRESSION: 1. No evidence of intracranial hemorrhage or mass effect. 2. No acute intracranial findings. Hip/Pelvis X-Ray 03/18/25 08:58 IMPRESSION: 1. Decreased bony mineralization without displaced fracture or dislocation in the right hip. 2. Mild degenerative change. Laboratory Results WBC 10.91 10^3/uL (3.29-11.43) 03/18/25 09:40 RBC 5.11 10^6/uL (3.85-5.65) 03/18/25 09:40 Hgb 14.80 g/dL (11.27-16.99) 03/18/25 09:40 Hct 43.8 % (36-47) 03/18/25 09:40 MCV 85.7 fl (85-98) 03/18/25 09:40 MCH 29.0 pg (27-33) 03/18/25 09:40 MCHC 33.8 g/dL (30-55) 03/18/25 09:40 RDW 12.4 % (12.1-15.1) 03/18/25 09:40 Plt Count 238 10^3/cmm (157-399) 03/18/25 09:40 MPV 9.3 fL (7.4-10.4) 03/18/25 09:40 Neut % (Auto) 74.6 % 03/18/25 09:40 Lymph % (Auto) 16.5 % 03/18/25 09:40 [place] % (Auto) 7.6 % 03/18/25 09:40 Eos % (Auto) 0.6 % 03/18/25 09:40 Baso % (Auto) 0.2 % 03/18/25 09:40 Neut # (Auto) 8.14 10^3/uL (1.8-7.7) H 03/18/25 09:40 Lymph # (Auto) 1.8 10^3/uL (0.8-4.8) 03/18/25 09:40 [place] # (Auto) 0.8 10^3/uL (0.2-0.9) 03/18/25 09:40 Eos # (Auto) 0.1 10^3/uL (0.0-0.8) 03/18/25 09:40 Baso # (Auto) 0.0 10^3/uL (0.0-0.1) 03/18/25 09:40 Nucleated RBC % (auto) 0 % 03/18/25 09:40 Nucleated RBCs # 0.0 /100WBC 03/18/25 09:40 Specimen Type Venous 03/18/25 11:03 Vish Test N/a 03/18/25 11:03 VBG pH 7.43 (7.32-7.42) H 03/18/25 11:03 VBG pCO2 43.6 mmHg (41-51) 03/18/25 11:03 VBG pO2 29.9 mmHg (25-40) 03/18/25 11:03 VBG HCO3 29.1 mmol/L (24-28) H 03/18/25 11:03 VBG Base Excess 4.1 mmol/L (-3.0-3.0) H 03/18/25 11:03 VBG Hematocrit 47.4 % (37-47) H 03/18/25 11:03 O2 Delivery Device Bipap 03/18/25 11:03 O2 Liters/Min 2.0 % 03/18/25 09:40 FiO2 30.0 % 03/18/25 11:03 Geotechnical Intern ID [place] 03/18/25 11:03 Sodium 132 mmol/L (136-145) L 03/18/25 09:40 Potassium 3.8 mmol/L (3.5-5.1) 03/18/25 09:40 Chloride 93 mmol/L (98-107) L 03/18/25 09:40 Carbon Dioxide 27 mmol/L (22-29) 03/18/25 09:40 Anion Gap 15.8 (5-19) 03/18/25 09:40 BUN 14 mg/dL (8-23) 03/18/25 09:40 Creatinine 0.8 mg/dL (0.5-0.9) 03/18/25 09:40 GFR Calculation 72.2 mL/min (90-130) L 03/18/25 09:40 Glucose 79 mg/dL (65-115) 03/18/25 09:40 Calculated Osmolality 273 mOsm/kg (285-295) L 03/18/25 09:40 Calcium 9.2 mg/dL (8.5-10.5) 03/18/25 09:40 Urine Color Chaves (Yellow) A 03/18/25 09: Urine Appearance Cloudy (CLEAR) A 03/18/25 09: Urine pH 6.0 (5-7) 03/18/25 09:03 Ur Specific [place] 1.010 (1.005-1.030) 03/18/25 09:03 Urine Protein 2+ (Negative) A 03/18/25 09: Urine Glucose (UA) Negative (Normal) 03/18/25 09: Urine Ketones Negative (Negative) 03/18/25 09:03 Urine Blood 3+ (Negative) A 03/18/25 09:03 Urine Nitrate Negative (Negative) 03/18/25 09:03 Urine Bilirubin Negative (Negative) 03/18/25 09: Urine Urobilinogen 1.0 mg/dL (Negative) 03/18/25 09:03 Ur Leukocyte Esterase Trace (Negative) A 03/18/25 09:03 Urine RBC 21-50 /hpf (0-2) H 03/18/25 09:03 Urine WBC 0-5 /hpf (0-5) 03/18/25 09:03 Ur Squamous Epith Cells 0-5 /hpf (0-5) 03/18/25 09:03 Amorphous Sediment Not Reportable 03/18/25 09:03 Urine Bacteria None seen /hpf (NONE) 03/18/25 09: Hyaline Casts 6.17 /lpf 03/18/25 09:03 Influenza A (PCR) Negative (Negative) 03/18/25 09:03 Influenza Type B (PCR) Negative (Negative) 03/18/25 09:03 RSV (PCR) Negative (Negative) 03/18/25 09:03 SARS-CoV-2 (PCR) Negative (Negative) 03/18/25 09:03 All radiology interpretation(s) finalized by discharge ED provider radiology interpretation(s): CT head negative for acute traumatic injury, hip/pelvis x-ray negative for fracture, chest x-ray without obvious lobar pneumonia or significant heart failure EKG Data EKG 1: I personally reviewed and interpreted this EKG as follows: EKG interpretation date: 03/18/25 EKG interpretation time: 09:16 Prior EKG tracings: available for review Interpretation: EKG performed at 9:16 AM showing sinus rhythm at 63 bpm with first-degree AV block, occasional PACs, left axis deviation, right bundle branch block, no STEMI, QTc 488 ms Critical Care Time Critical Care Time: Critical Care Time: Yes Total Critical Care Time: 35 Attestation: This case had a high probability of a clinically significant, sudden, or life threatening deterioration of this patient's condition which required my full and direct attention, intervention and personal management. Discharge Plan Discharge Patient Disposition: Admitted As Inpatient Clinical Impression: Hyponatremia Respiratory failure Qualifiers: Chronicity: acute Respiratory failure complication: hypoxia and hypercapnia Qualified Code(s): J96.01 - Acute respiratory failure with hypoxia Condition: Stable Coding Level of Care Code ED Dietetic Tech for Cordell Cortez
[2025-03-18 11:07] LABS: Base Excess VBG 4.1 mmol/L (-3.0-3.0); Blood Gas Operator Identificat WALCI; Blood Gas Sample Type Venous; HCO3 VBG 29.1 mmol/L (24-28); PCO2 VBG 43.6 mmHg (41-51); PO2 VBG 29.9 mmHg (25-40); Venous Blood Gas Hematocrit 47.4 % (37-47); pH VBG 7.43 (7.32-7.42)
--- NOTE | 2025-03-18 12:47 | PC.PHAR ---
Addendum entered by Sara Mora 03/18/25 12:51: Pt has several otc medications, several injectable medications and several inhalers that are not considered when her medications are set up. Pt takes care of all of those items, herself. Original Note: Pt states she now uses a home health agency to set up her medications. Looks like [facility] is taking care of her. I phoned for a current list and what they faxed me was not a current list. Phoned [facility] to compare, eilzabeth Simpson went over all medications with last fill dates.
--- NOTE | 2025-03-18 12:49 | PM.HP ---
Providers/Chief Complaint Primary Care Provider: LILLIE Pleitez Chief Complaint: fall - right hip pain History of Present Illness Alissa Beck is a 64 year old woman with history of chronic obstructive pulmonary disease (COPD), atrial fibrillation, hypertension, hyperlipidemia, peripheral artery disease, diabetes mellitus type 2, Sj?gren?s syndrome, generalized anxiety disorder, and heart failure, presenting to the emergency department for several days of generalized weakness and multiple recent falls. Reports right hip pain following the falls and also struck the back of the head. Notes cough productive of yellow phlegm. Denies fever. Denies nausea, vomiting, or diarrhea. Denies rash, gastrointestinal bleeding (no blood in stool or melena), or hematuria. Usually wears 4 L/min nasal cannula oxygen at night only; does not use a mask at night. Lives alone ( for now ). Current smoker. Reports occasional choking episodes, happening every once in a while, more so with water. States she is on a blood thinner (rivaroxaban) and missed today?s dose. Regarding diabetes regimen, initially mentioned 65 units of a long-acting insulin in the morning but then clarified giving 20 units before meals at breakfast, lunch, and dinner. In the ED, was described as sleepy and started on bilevel positive airway pressure (BiPAP), after which she reported feeling a little better. Review of Systems Const: Reports: other (Gen weak. Falls.); Denies: fever(s), chills, body aches or malaise ENMT: Denies: throat pain Card: Denies: chest pain, edema, pre-syncope or dyspnea on exertion Resp: Reports: dyspnea, productive cough and change in phlegm color; Denies: hemoptysis GI: Denies: abdominal pain, nausea, vomiting, diarrhea, constipation, hematochezia or melena : Denies: flank pain, urinary frequency or hematuria Musc: Denies: back pain, joint swelling or joint redness Skin/Breast: Denies: rash or new lesions Neuro: Denies: headache(s) or confusion Medications/Allergies Home Medications ?Medication ?Instructions ?Recorded ?Confirmed ?Last Taken ?Type blood sugar diagnostic (Blood #100 ea 06/30/19 03/18/25 Unknown Rx Glucose Test strips) blood-glucose meter (Blood Glucose #1 ea 01/22/20 03/18/25 Unknown Rx Monitoring kit) oxygen-air delivery systems 01/17/22 03/18/25 Unknown History pen needle, diabetic 32 gauge x #100 ea 02/15/22 03/18/25 Unknown Rx 5/32 (BD Ultra-Fine Corine Pen Needle) acetaminophen 325 mg tablet 325 mg PO QID PRN Pain 11/19/22 03/18/25 Unknown History ibuprofen 200 mg tablet 200 mg PO Q6H PRN Pain 11/19/22 03/18/25 Unknown History nebulizer and supplies #1 ea 02/14/23 03/18/25 Unknown Rx afflovest #1 ea 02/26/23 03/18/25 Unknown Rx back brace #1 ea 04/15/23 03/18/25 Unknown Rx DC Home Health #1 ea 06/18/23 03/18/25 Unknown Rx CPAP (Standard Cpap) 08/07/23 03/18/25 Unknown History insulin pump cart,auto,BT,G6/7 #5 ea 11/17/24 03/18/25 Unknown Rx (Omnipod 5 G6-G7 Pods (Gen 5) subcutaneous cartridge) insulin pump cartridge,auto #1 ea 11/17/24 03/18/25 Unknown Rx dose,BT,G6/G7 with controller subcutaneous (Omnipod 5 G6-G7 Intro Kit(Gen 5) subcutaneous cartridge and controller) flecainide 100 mg tablet 100 mg PO Q12H #60 tabs 12/04/24 03/18/25 03/17/25 Rx zolpidem 5 mg tablet (Ambien) 5 mg PO BEDTIME PRN sleep #30 tabs 12/07/24 03/18/25 01/24/25 Rx clonazepam 0.5 mg tablet 0.5 mg PO BID PRN anxiety #60 tabs 01/05/25 03/18/25 Unknown Rx flash glucose scanning reader #1 ea 01/06/25 03/18/25 Unknown Rx (FreeStyle Jack 2 Thompson) insulin pump cart,auto,BT,G6/L #5 ea 01/07/25 03/18/25 Unknown Rx (Omnipod 5 (G6/Jack 2 Plus) subcutaneous cartridge) insulin pump cartridge,auto #1 ea 01/07/25 03/18/25 Unknown Rx dose,BT,G6/L2 with controller subcutaneous (Omnipod 5 Intro Kit(G6/Fpswk8Cxiu) subcutaneous cartridge) insulin glargine 100 unit/mL (3 65 unit (0.65 mL) SUBCUT QAM #45 mL 01/18/25 03/18/25 03/17/25 Rx mL) subcutaneous pen (Lantus Solostar U-100 Insulin) insulin lispro 100 unit/mL 20 unit (0.2 mL) SUBCUT TID #30 mL 01/18/25 03/18/25 03/17/25 Rx subcutaneous pen (Humalog KwikPen (U-100) Insulin) atorvastatin 20 mg tablet 20 mg PO BEDTIME 01/25/25 03/18/25 03/17/25 History cholecalciferol (vitamin D3) 1,250 50,000 unit PO Q7D 01/25/25 03/18/25 03/12/25 History mcg (50,000 unit) capsule isosorbide mononitrate 30 mg 30 mg PO DAILY #90 tabs 01/25/25 03/18/25 03/17/25 Rx tablet,extended release 24 hr albuterol sulfate 90 mcg/actuation 2 puff inhalation Q8H PRN 02/05/25 03/18/25 Unknown Rx aerosol inhaler Shortness Of Breath Or Wheezing #8.5 grams hydroxychloroquine 200 mg tablet 200 mg PO BID #180 tabs 02/09/25 03/18/25 03/17/25 Rx pilocarpine HCl 5 mg tablet 5 mg PO TID #90 tabs 02/09/25 03/18/25 Unknown Rx prednisone 5 mg tablet 5 mg PO DAILY #90 tabs 03/01/25 03/18/25 Unknown Rx Diabetic shoes #1 ea 03/02/25 03/18/25 Unknown Rx blood-glucose sensor (Dexcom G7 #9 ea 03/02/25 03/18/25 Unknown Rx Sensor device) blood-glucose,conditioning yard supervisor,cont #1 ea 03/02/25 03/18/25 Unknown Rx (Dexcom G7 Senior Mechanical Technician) gabapentin 300 mg capsule 300 mg PO TID #90 caps 03/02/25 03/18/25 03/17/25 Rx bupropion HCl 150 mg 24 hr tablet, 450 mg (3 x 150 mg) PO DAILY 30 03/05/25 03/18/25 03/17/25 Rx extended release days #90 tabs valsartan 160 mg tablet 160 mg PO DAILY #30 tabs 03/11/25 03/18/25 03/17/25 Rx aripiprazole 10 mg tablet (Abilify) 10 mg PO DAILY #30 tabs 03/12/25 03/18/25 03/17/25 Rx quetiapine 100 mg tablet (Seroquel) 100 mg PO .HS #30 tabs 03/12/25 03/18/25 03/17/25 Rx sertraline 100 mg tablet (Zoloft) 200 mg (2 x 100 mg) PO QAM #60 tabs 03/12/25 03/18/25 03/17/25 Rx budesonide-formoterol HFA 160 2 puff inhalation BID 03/18/25 03/18/25 03/17/25 History mcg-4.5 mcg/actuation aerosol inhaler (Symbicort) ensifentrine 3 mg/2.5 mL 3 mg inhalation Q4H PRN Shortness 03/18/25 03/18/25 Unknown History suspension for nebulization Of Breath (Ohtuvayre) ipratropium 20 mcg-albuterol 100 1 puff inhalation Q6H PRN 03/18/25 03/18/25 Unknown History mcg/actuation mist for inhalation Shortness Of Breath (Combivent Respimat) magnesium citrate 100 mg tablet 100 mg PO DAILY 03/18/25 03/18/25 03/17/25 History metoprolol succinate 50 mg 50 mg PO DAILY 03/18/25 03/18/25 03/17/25 History tablet,extended release 24 hr modafinil 200 mg tablet 200 mg PO QAM 03/18/25 03/18/25 03/17/25 History potassium chloride 20 mEq 20 meq PO QAM 03/18/25 03/18/25 03/17/25 History tablet,extended release rivaroxaban 20 mg tablet (Xarelto) 20 mg PO QAM 03/18/25 03/18/25 03/17/25 History sennosides 8.6 mg-docusate sodium 1 tab PO DAILY 03/18/25 03/18/25 03/17/25 History 50 mg tablet (Senokot-S) tirzepatide 2.5 mg/0.5 mL See Rx Instructions .Route .COMPLEX 03/18/25 03/18/25 03/17/25 History subcutaneous pen injector (Mounsamiro) umeclidinium 62.5 mcg/actuation 1 inh inhalation DAILY 03/18/25 03/18/25 03/17/25 History blister powder for inhalation (Incruse Ellipta) Allergies Allergy/AdvReac Type Severity Reaction Status Date / Time Sulfa (Sulfonamide Allergy Unknown Unknown Verified 03/12/25 11:45 Antibiotics) Alpha-Gal Allergy Unknown Verified 03/12/25 11:45 (Iqxzhqgbv-Rxwxy-3,3-Gala quinine (From Quine) Allergy unknown Verified 03/12/25 11:45 ropinirole (From Requip) Allergy Unknown Verified 03/12/25 11:45 PFSH Acute PFSH: Medical History Generalized anxiety disorder Sleep apnea Primary Sjogren's syndrome Lower extremity weakness Positive AMI (antinuclear antibody) Disorders of diaphragm Atelectasis of both lungs CHF (congestive heart failure), NYHA class III Drug-induced myopathy Recurrent pneumonia Emphysema lung Encephalopathy acute Acute and chronic respiratory failure with hypercapnia UTI (urinary tract infection) due to Enterococcus Excessive daytime sleepiness Diabetes type 2, controlled Insomnia Gross hematuria UTI (urinary tract infection) Psychiatric care Essential (primary) hypertension Chronic obstructive pulmonary disease with (acute) exacerbation Polyneuropathy, unspecified Callus Porokeratosis PVD (peripheral vascular disease) Shortness of Breath Bilateral leg edema Angina pectoris 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 with no history of malignant neoplasm AF (paroxysmal atrial fibrillation) Hypertension Tobacco abuse disorder Uncontrolled type 2 diabetes mellitus with polyneuropathy Acute DM type 2 causing complication Cannabis dependence, uncomplicated Nicotine dependence, cigarettes, with other nicotine-induced disorders Bipolar II disorder Post-traumatic stress disorder, chronic Surgical History H/O chest tube placement History of hysterectomy History of cholecystectomy History of appendectomy History of hernia repair Family History Father , AT AGE 21 Gunshot wound Mother , AT AGE 61 CAD (coronary artery disease) Other Cancer Diabetes Stroke Social History Smoking and tobacco/nicotine status: current every day tobacco/nicotine user cigarettes Packs smoked per day: 2 Years cigarettes smoked: 52 [ Other cigarette details: Started at age 10] Second hand smoke exposure: Yes Alcohol intake: current Alcohol intake frequency: holidays/special occasions only Alcohol type: other Substance/Drug Use: former Date of last use: 2020 Adopted: No Caregiver/support person: No Lives independently: Yes Household members: significant other Housing: Manufactured/Mobile home Marital status: Life Partner Number of children: 0 Number of grandchildren: 0 Highest education level completed: Some College, No Degree service: No Current occupational status: disabled 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 Current occupational exposures/hazards: No Pets and animals: Yes (3 dogs) Pets & animals: dog(s) Leisure activites: fishing and other Leisure activities details: sewing, writing, gardening Sexually active: Yes How many partners: 1 Do you think of yourself as: Lesbian/Gautam/Homosexual Current gender identity: Female Latha/Religious: Sikh Special latha needs: No Agree to transfusion: Yes Female Reproductive History: Para: 0 Spontaneous abortions: No Vitals/I&O/Wt Last Vital Signs Temp 98.1 F 03/18/25 08:34 Pulse 56 L 03/18/25 11:11 Resp 18 03/18/25 09:10 BP 159/67 03/18/25 12:06 Pulse Ox 97 03/18/25 12:06 O2 Del Method BiPAP 03/18/25 12:06 O2 Flow Rate 2 03/18/25 09:10 FiO2 30 03/18/25 11:11 Weight last 48 hrs Weight 111.584 kg Physical Exam Const: COMMON NORMALS: patient oriented x3 and alert GENERAL APPEARANCE: cooperative ORIENTATION/CONSCIOUSNESS: Yes awake HENMT: COMMON NORMALS: oropharynx normal Neck/C-Spine: COMMON NORMALS: no JVD Resp: COMMON NORMALS: normal respiratory effort and clear to auscultation bilaterally AUSCULTATION: clear to auscultation bilaterally Cardio: COMMON NORMALS: no JVD, regular rhythm, S1 normal heart sound present, S2 normal heart sound present and No murmurs present (Cardio) RHYTHM: regular rhythm HEART SOUNDS: S1 normal heart sound present and S2 normal heart sound present GI: COMMON NORMALS: Normal to inspection, nondistended, normoactive bowel sounds present, Soft to palpation and non-tender PALPATION: Yes Soft to palpation Extremity: COMMON NORMALS: no joint enlargement and no pedal edema Neuro: COMMON NORMALS: patient oriented x3 and moves all extremities SENSORIUM/ORIENTATION: Yes alert Skin: COMMON NORMALS: no rashes or lesions noted GENERAL SKIN EXAM: no rashes or lesions noted OTHER: Chronic stasis hemosiderosis Data 03/18/25 09:40 03/18/25 09:40 A&P Assessment and plan 1. Respiratory failure with hypoxia and hypercapnia: Acute respiratory failure with hypoxia and hypercapnia, with acute encephalopathy, metabolic encephalopathy secondary to the above. Requiring BiPAP support. With respiratory acidosis on presentation. Secondary to severe exacerbation of COPD. Severe COPD exacerbation with hypoxic and hypercapnic respiratory failure : Severe exacerbation of COPD with hypoxia and hypercapnia requiring BiPAP; patient became sleepy and had elevated carbon dioxide; reports productive cough with yellow sputum. Reviewed vitals, CBC, ABG, BMP, UA, nasal swab for influenza, COVID, RSV, chest x-ray, ED provider note, discussed with ED provider. - Continue BiPAP support; wean while avoiding hypoxia; target oxygen saturation 88?92%. - Treat COPD exacerbation with intravenous corticosteroids: methylprednisolone 40 mg IV every 6 hours. Monitor for risk of hyperglycemia, setting of diabetes, hypertension, gastritis and encephalopathy. - Start empiric antibiotic coverage with ceftriaxone. - Collect sputum culture. - Request incentive spirometer - CLD for now. Aspiration precautions. 2. Encephalopathy acute: Acute metabolic encephalopathy with respiratory cirrhosis, hypercapnic encephalopathy. Question of possible UTI with noted microscopic hematuria 25-50 RBC. Urine culture sent and pending. Empiric antibiotic coverage with ceftriaxone. Treatment of respiratory failure with hypercapnia as above. Hold any sedating medications. Plan: Atrial fibrillation on anticoagulation : Chronic atrial fibrillation on rivaroxaban; patient missed today?s dose. - Continue anticoagulation with rivaroxaban (Xarelto). Right lower extremity edema; rule out deep vein thrombosis (DVT) : Right leg noted to be more swollen than left; patient on anticoagulation; no prior history of blood clots reported. - Order duplex ultrasound of the lower extremity to assess for and exclude DVT. Aspiration risk while drowsy/on BiPAP : Patient described as sleepy and currently on BiPAP; reports occasional choking with liquids. - Aspiration precautions. - Clear liquid diet only for now. - Hold off on resumption of regular diet until weaning off BiPAP. Acute metabolic (hypercapnic) encephalopathy : Sleepiness attributed to hypercapnia; avoid further sedation. - Hold sedating medications: hold aripiprazole, clonazepam, gabapentin, and zolpidem (Ambien). Congestive heart failure (CHF), appears compensated : CHF appears compensated overall; no specific decompensation plan stated. Tobacco use : Patient is a current smoker; counseling offered regarding cessation while hospitalized. - Offer nicotine patch and lozenges for cravings if desired. DM2: Resume insulin Lantus. Cut down dose due to clear liquids only for now. Consistent carb diet. Monitor POC glucose. Monitor risk of hypoglycemia. Sliding scale correction dose insulin. HTN: Monitor blood pressure. Continue valsartan. Autoimmune disease: Continue hydrochloric when. On chronic daily corticosteroid. Monitor for risk of adrenal insufficiency, adrenal crisis. PAD, HLD: Continue statin. A-fib: Continue flecainide. Continue Xarelto. TONNY: Continue Sertraline, bupropion. Hold clonazepam. Code status discussion : Discussed intubation and cardiopulmonary resuscitation (CPR). Patient agrees to both interventions if needed, with understanding that outcomes cannot be guaranteed. - Document Full Code preferences as discussed. Mine Hancock, a friend to be a surrogate decision maker in case she could not make her own decisions or if Mine is not available [place]. PDMP PDMP Reviewed: Not Reviewed Attestations Medical Necessity Statement*: Admission over 2 midnights anticipated for assessment management of acute respiratory failure with hypoxia and hypercapnia, severe exacerbation of COPD in a lady with underlying comorbidities as above. Diagnoses Respiratory failure with hypoxia and hypercapnia J96.91; J96.92 Encephalopathy acute G93.40
--- NOTE | 2025-03-18 15:44 | USR_ITS ---
PROCEDURE INFORMATION: Exam: US Duplex Right Lower Extremity Veins, Limited Exam date and time: 03/18/2025 4:45 PM Age: 64 years old Clinical indication: Screening exam; Assess for dvt TECHNIQUE: Imaging protocol: Real-time duplex ultrasound of the right extremity with 2-D kraus scale, color Doppler flow and spectral waveform analysis including responses to compression and other maneuvers (when performed) with image documentation. Limited exam was focused on the right lower extremity veins. COMPARISON: US Lower Arterial 03/12/2025 10:00 AM FINDINGS: Right deep veins: Unremarkable. The common femoral, femoral, proximal profunda femoral and popliteal veins are patent without thrombus. Normal Doppler waveforms. Normal compressibility and/or augmentation response. Superficial veins: Greater saphenous vein at the saphenofemoral junction is patent without thrombus. Soft tissues: Unremarkable. US/[place] [id number] IMPRESSION: No evidence of deep vein thrombosis.
[2025-03-18] MEDS: methylPREDNISolone sod succ 40 mg/mL INJ IVP ×2 (17:56→21:45)
[2025-03-18] MEDS: cefTRIAXone 1,000 mg SDV 1000 MG IVP (17:56)
[2025-03-18] MEDS: ATORVASTATIN 20 MG TABLET PO (21:45)
[2025-03-19] VITALS (9 sets, daily range): BP systolic 131–168; BP diastolic 62–75; PULSE 53–71; RESP 15–20; TEMP 36.4–36.9; O2SAT 87–97
[2025-03-19] MEDS: metoprolol succinate ER (24 HR) 50 mg Tablet PO (04:41)
[2025-03-19] MEDS: cefTRIAXone 1,000 mg SDV 1000 MG IVP (04:42)
[2025-03-19] MEDS: methylPREDNISolone sod succ 40 mg/mL INJ IVP ×2 (04:42→11:09)
[2025-03-19 05:18] LABS: Hematocrit 45.6 % (36-47); Hemoglobin 15.10 g/dL (11.27-16.99); Mean Corpuscular HGB Conc 33.1 g/dL (30-55); Mean Corpuscular Hemoglobin 28.8 pg (27-33); Mean Corpuscular Volume 86.9 fl (85-98); Nucleated Red Blood Cells % 0 %; Platelet Count 277 10^3/cmm (157-399); Red Blood Count 5.25 10^6/uL (3.85-5.65); White Blood Count 11.15 10^3/uL (3.29-11.43)
[2025-03-19 05:45] LABS: Blood Urea Nitrogen 15 mg/dL (8-23); Calcium 9.4 mg/dL (8.5-10.5); Carbon Dioxide 24 mmol/L (22-29); Chloride 95 mmol/L (98-107); Creatinine Clr Calc Pharmacy 109.8887; Glucose 222 mg/dL (65-115); Magnesium 2.0 mg/dL (1.7-2.3); Osmolality Calculated 282 mOsm/kg (285-295); Sodium 132 mmol/L (136-145)
[2025-03-19 05:46] LABS: Anion Gap 17.9 (5-19); Potassium 4.9 mmol/L (3.5-5.1)
[2025-03-19] MEDS: insulin glargine 100 units/1 mL 45 UNIT SUBCUT (09:07)
--- NOTE | 2025-03-19 09:41 | PC.SOCIAL ---
IMM Update pg 2 of IMM Updated and reviewed w/ patient. Copy provided and copy dated, initialed and placed in chart.
--- NOTE | 2025-03-19 10:45 | P.DS_ITS ---
Discharge Providers Date of Admission: 03/18/25 13:00 Date of Discharge: March 19, 2025 Attending Provider at Admission: David Mcclelland Attending Provider at Discharge: David Mcclelland Primary Care Provider: LILLIE Pleitez Diagnoses at Discharge Discharge Diagnosis 1. Respiratory failure with hypoxia and hypercapnia: 2. Encephalopathy acute: Reason for Visit Reason for Visit: fall - right hip pain Brief History: Alissa Beck is a 64 year old woman with history of chronic obstructive pulmonary disease (COPD), atrial fibrillation, hypertension, hyperlipidemia, peripheral artery disease, diabetes mellitus type 2, Sj?gren?s syndrome, generalized anxiety disorder, and heart failure, presenting to the emergency department for several days of generalized weakness and multiple recent falls. Reports right hip pain following the falls and also struck the back of the head. Notes cough productive of yellow phlegm. Denies fever. Denies nausea, vomiting, or diarrhea. Denies rash, gastrointestinal bleeding (no blood in stool or melena), or hematuria. Usually wears 4 L/min nasal cannula oxygen at night only; does not use a mask at night. Lives alone ( for now ). Current smoker. Reports occasional choking episodes, happening every once in a while, more so with water. States she is on a blood thinner (rivaroxaban) and missed today?s dose. Regarding diabetes regimen, initially mentioned 65 units of a long-acting insulin in the morning but then clarified giving 20 units before meals at breakfast, lunch, and dinner. In the ED, was described as sleepy and started on bilevel positive airway pressure (BiPAP), after which she reported feeling a little better. Hospital Course Hospital Course She was admitted initially on BiPAP support, treated with IV corticosteroid, empiric antibiotic, any sedating medications were withheld due to acute encephalopathy hypercapnia gradually resolved with treatment and weaned off BiPAP she is now awake and alert. Feeling much better breathing significantly i mproved. She would like to return home. Home O2 evaluation is obtained prior to discharge and she is found to require 3 L of oxygen. She has been wearing 4 L at night. Discussed with her to reduce nighttime oxygen to avoid hyperoxia and risk of hypercapnia, however, she does need to wear oxygen during the day as it appears has been previously recommended currently found to require 3 L by nasal cannula. Discussed again need to stop smoking also feels the need for herself. On her request referral was put in for follow-up with pulmonology in [place] for easier travel. Information is provided on fall prevention and she is encouraged to make sure she keeps her walker with her at all times to help prevent future falls and needs to wear her oxygen during the day. Physical Exam Const: COMMON NORMALS: patient oriented x3 and alert GENERAL APPEARANCE: cooperative ORIENTATION/CONSCIOUSNESS: Yes awake HENMT: COMMON NORMALS: oropharynx normal Neck/C-Spine: COMMON NORMALS: no JVD Resp: COMMON NORMALS: normal respiratory effort and clear to auscultation bilaterally AUSCULTATION: clear to auscultation bilaterally OTHER: Minor wheeze. Cardio: COMMON NORMALS: no JVD, regular rhythm, S1 normal heart sound present, S2 normal heart sound present and No murmurs present (Cardio) RHYTHM: regular rhythm HEART SOUNDS: S1 normal heart sound present and S2 normal heart sound present GI: COMMON NORMALS: Normal to inspection, nondistended, normoactive bowel sounds present, Soft to palpation and non-tender PALPATION: Yes Soft to palpation Extremity: COMMON NORMALS: no joint enlargement and no pedal edema Neuro: COMMON NORMALS: patient oriented x3 and moves all extremities SENSO RIUM/ORIENTATION: Yes alert Skin: COMMON NORMALS: no rashes or lesions noted GENERAL SKIN EXAM: no rashes or lesions noted Discharge Data Studies Completed and Pending Completed Studies During Hospitalization Category Date Time Status CT head wo con* [id number] Stat Cat Scan 03/18/25 08:58 Completed XR chest 1V portable [id number] Stat Exams 03/18/25 08:58 Completed XR hip RT 2-3V wo/w pel* [id number] Stat Exams 03/18/25 08:58 [place] [id number] Routine Ultrasound 03/18/25 15:44 Completed Pending at discharge Category Date Time Status Basic Metabolic Panel AM LABS Lab 03/20/25 04:00 Ordered Basic Metabolic Panel AM LABS Lab 03/21/25 04:00 Ordered Complete Blood Count w/Auto AM LABS Lab 03/20/25 04:00 Ordered Complete Blood Count w/Auto AM LABS Lab 03/21/25 04:00 Ordered Sputum Culture and Gram Stain Routine Lab 03/18/25 15:54 Uncollected Urine Culture Stat Lab 03/18/25 09:03 Results VBG [Venous Blood Gas] Stat Lab 03/18/25 09:40 Results VBG [Venous Blood Gas] Stat Lab 03/18/25 11:03 Results Radiology Impressions Chest X-Ray 03/18/25 08:58 IMPRESSION: 1. Limited rotated portable radiograph of the chest was obtained. 2. Mild linear opacity in the right lung base, favored to represent subsegmental atelectasis. No consolidative airspace disease seen. Head CT 03/18/25 08:58 IMPRESSION: 1. No evidence of intracranial hemorrhage or mass effect. 2. No acute intracranial findings. Hip/Pelvis X-Ray 03/18/25 08:58 IMPRESSION: 1. Decreased bony mineralization without displaced fracture or dislocation in the right hip. 2. Mild degenerative change. Venous Duplex 03/18/25 15:44 IMPRESSION: No evidence of deep vein thrombosis. Laboratory Results WBC 11.15 10^3/uL (3.29-11.43) 03/19/25 04:45 RBC 5.25 10^6/uL (3.85-5.65) 03/19/25 04:45 Hgb 15.10 g/dL (11.27-16.99) 03/19/25 04:45 Hct 45.6 % (36-47) 03/19/25 04:45 MCV 86.9 fl (85-98) 03/19/25 04:45 MCH 28.8 pg (27-33) 03/19/25 04:45 MCHC 33.1 g/dL (30-55) 03/19/25 04:45 RDW 12.4 % (12.1-15.1) 03/19/25 04:45 Plt Count 277 10^3/cmm (157-399) 03/19/25 04:45 MPV 9.4 fL (7.4-10.4) 03/19/25 04:45 Neut % (Auto) 88.0 % 03/19/25 04:45 Lymph % (Auto) 6.6 % 03/19/25 04:45 [place] % (Auto) 4.8 % 03/19/25 04:45 Eos % (Auto) 0.1 % 03/19/25 04:45 Baso % (Auto) 0.1 % 03/19/25 04:45 Neut # (Auto) 9.82 10^3/uL (1.8-7.7) H 03/19/25 04:45 Lymph # (Auto) 0.7 10^3/uL (0.8-4.8) L 03/19/25 04:45 [place] # (Auto) 0.5 10^3/uL (0.2-0.9) 03/19/25 04:45 Eos # (Auto) 0.0 10^3/uL (0.0-0.8) 03/19/25 04:45 Baso # (Auto) 0.0 10^3/uL (0.0-0.1) 03/19/25 04:45 Nucleated RBC % (auto) 0 % 03/19/25 04:45 Nucleated RBCs # 0.0 /100WBC 03/19/25 04:45 Specimen Type Venous 03/18/25 11:03 Vish Test N/a 03/18/25 11:03 VBG pH 7.43 (7.32-7.42) H 03/18/25 11:03 VBG pCO2 43.6 mmHg (41-51) 03/18/25 11:03 VBG pO2 29.9 mmHg (25-40) 03/18/25 11:03 VBG HCO3 29.1 mmol/L (24-28) H 03/18/25 11:03 VBG Base Excess 4.1 mmol/L (-3.0-3.0) H 03/18/25 11:03 VBG Hematocrit 47.4 % (37-47) H 03/18/25 11:03 O2 Delivery Device Bipap 03/18/25 11:03 O2 Liters/Min 2.0 % 03/18/25 09:40 FiO2 30.0 % 03/18/25 11:03 Color Straining Bag Washer ID [place] 03/18/25 11:03 Sodium 132 mmol/L (136-145) L 03/19/25 04:45 Potassium 4.9 mmol/L (3.5-5.1) 03/19/25 04:45 Chloride 95 mmol/L (98-107) L 03/19/25 04:45 Carbon Dioxide 24 mmol/L (22-29) 03/19/25 04:45 Anion Gap 17.9 (5-19) 03/19/25 04:45 BUN 15 mg/dL (8-23) 03/19/25 04:45 Creatinine 0.7 mg/dL (0.5-0.9) 03/19/25 04:45 GFR Calculation 84.2 mL/min (90-130) L 03/19/25 04:45 Glucose 222 mg/dL (65-115) H 03/19/25 04:45 POC Glucose 191 mg/dL (70-110) H 03/19/25 07:23 Calculated Osmolality 282 mOsm/kg (285-295) L 03/19/25 04:45 Calcium 9.4 mg/dL (8.5-10.5) 03/19/25 04:45 Magnesium 2.0 mg/dL (1.7-2.3) 03/19/25 04:45 Urine Color [place] (Yellow) A 03/18/25 09:03 Urine Appearance Cloudy (CLEAR) A 03/18/25 09:03 Urine pH 6.0 (5-7) 03/18/25 09:03 Ur Specific [place] 1.010 (1.005-1.030) 03/18/25 09:03 Urine Protein 2+ (Negative) A 03/18/25 09:03 Urine Glucose (UA) Negative (Normal) 03/18/25 09:03 Urine Ketones Negative (Negative) 03/18/25 09:03 Urine Blood 3+ (Negative) A 03/18/25 09:03 Urine Nitrate Negative (Negative) 03/18/25 09:03 Urine Bilirubin Negative (Negative) 03/18/25 09:03 Urine Urobilinogen 1.0 mg/dL (Negative) 03/18/25 09:03 Ur Leukocyte Esterase Trace (Negative) A 03/18/25 09:03 Urine RBC 21-50 /hpf (0-2) H 03/18/25 09:03 Urine WBC 0-5 /hpf (0-5) 03/18/25 09:03 Ur Squamous Epith Cells 0-5 /hpf (0-5) 03/18/25 09:03 Amorphous Sediment Not Reportable 03/18/25 09:03 Urine Bacteria None seen /hpf (NONE) 03/18/25 09:03 Hyaline Casts 6.17 /lpf 03/18/25 09:03 Influenza A (PCR) Negative (Negative) 03/18/25 09:03 Influenza Type B (PCR) Negative (Negative) 03/18/25 09:03 RSV (PCR) Negative (Negative) 03/18/25 09:03 SARS-CoV-2 (PCR) Negative (Negative) 03/18/25 09:03 Vitals Last Vital Signs Temp 98.4 F 03/19/25 07:37 Pulse 59 L 03/19/25 07:39 Resp 16 03/19/25 07:39 BP 168/68 03/19/25 07:37 Pulse Ox 87 L 03/19/25 10:03 O2 Del Method Nasal Cannula 03/19/25 07:39 O2 Flow Rate 3 03/19/25 10:03 FiO2 30 03/19/25 03:14 Discharge Plan Discharge Patient Disposition: Home Condition: Stable Prescriptions: New nicotine 21 mg/24 hr Patch 24 Hour 1 patch transdermal DAILY Qty: 28 3RF prednisone 20 mg tablet See Rx Instructions .ROUTE .COMPLEX Qty: 20 0RF Rx Instructions: 3 tab daily for 3 days, then 2 tab for 3 days, then 1 tab for 3 days, then 1/2 tab for 4 days. cefdinir 300 mg capsule 300 mg PO BID 5 Days Qty: 10 0RF Continued (DME) Blood Glucose Test Strip See Rx Instructions .ROUTE .MEDSUPPLY Qty: 100 1RF Rx Instructions: As directed (DME) oxygen-air delivery systems Device See Rx Instructions .Route Rx Instructions: As directed acetaminophen 325 mg tablet 325 mg PO QID PRN (Reason: Pain) ibuprofen 200 mg tablet 200 mg PO Q6H PRN (Reason: Pain) (DME) nebulizer and supplies See Rx Instructions .Route .MEDSUPPLY Qty: 1 0RF Rx Instructions: As directed (DME) back brace See Rx Instructions .Route .MEDSUPPLY Qty: 1 0RF Rx Instructions: As directed (DME) Standard Cpap Device See Rx Instructions .Route Rx Instructions: As directed gabapentin 300 mg capsule 300 mg PO TID Qty: 90 0RF valsartan 160 mg tablet 160 mg PO DAILY Qty: 30 0RF (DME) pen needle, diabetic [BD Ultra-Fine [place] Pen Needle] 32 gauge x 5/32 needle See Rx Instructions .Route Qty: 100 3RF Rx Instructions: use as directed for insulin injections twice daily zolpidem [Ambien] 5 mg tablet 5 mg PO BEDTIME PRN (Reason: sleep) Qty: 30 2RF hydroxychloroquine 200 mg tablet 200 mg PO BID Qty: 180 1RF pilocarpine HCl 5 mg tablet 5 mg PO TID Qty: 90 5RF flecainide 100 mg tablet 100 mg PO Q12H Qty: 60 3RF (DME) Diabetic shoes See Rx Instructions .ROUTE .MEDSUPPLY Qty: 1 0RF Rx Instructions: With 3 pairs of inserts aripiprazole [Abilify] 10 mg tablet 10 mg PO DAILY Qty: 30 2RF sertraline [Zoloft] 100 mg tablet 200 mg PO QAM Qty: 60 2RF quetiapine [Seroquel] 100 mg tablet 100 mg PO .HS Qty: 30 2RF (DME) blood-glucose meter [Blood Glucose Monitoring] Kit See Rx Instructions .ROUTE .MEDSUPPLY Qty: 1 0RF Rx Instructions: As directed (DME) afflovest See Rx Instructions .Route .MEDSUPPLY Qty: 1 0RF Rx Instructions: As directed (DME) [facility] See Rx Instructions .Route .MEDSUPPLY Qty: 1 0RF Rx Instructions: As directed (DME) Omnipod 5 G6-G7 Pods (Gen 5) Cartridge See Rx Instructions .Route Qty: 5 4RF Rx Instructions: As directed (DME) Omnipod 5 G6-G7 Intro Kt(Gen5) Cartridge See Rx Instructions .Route Qty: 1 0RF Rx Instructions: As directed clonazepam 0.5 mg tablet 0.5 mg PO BID PRN (Reason: anxiety) Qty: 60 1RF (DME) FreeStyle Jack 2 [place] Misc See Rx Instructions .ROUTE .COMPLEX Qty: 1 0RF Dose Instruction: USE DIRECTED Rx Instructions: USE DIRECTED (DME) Omnipod 5 (G6/Jack 2 Plus) Cartridge See Rx Instructions .Route Qty: 5 2RF Rx Instructions: As directed (DME) Omnipod 5 Intro(G6/Ymhqy1Epdt) Cartridge See Rx Instructions .Route Qty: 1 0RF Rx Instructions: As directed insulin glargine [Lantus Solostar U-100 Insulin] 100 unit/mL (3 mL) insulin pen 65 unit SUBCUT QAM Qty: 45 0RF insulin lispro [Humalog KwikPen Insulin] 100 unit/mL insulin pen 20 unit SUBCUT TID MDD 60 units Qty: 30 1RF isosorbide mononitrate 30 mg tablet extended release 24 hr 30 mg PO DAILY Qty: 90 3RF albuterol sulfate 90 mcg/actuation HFA aerosol inhaler 2 puff inhalation Q8H PRN (Reason: Shortness Of Breath Or Wheezing) Qty: 8.5 0RF prednisone 5 mg tablet 5 mg PO DAILY Qty: 90 1RF (DME) Dexcom G7 Sensor Device See Rx Instructions .MEDSUPPLY Qty: 9 3RF Rx Instructions: change every 10 days (DME) Dexcom G7 Chronic Care Nurse Misc See Rx Instructions .MEDSUPPLY Qty: 1 0RF Rx Instructions: use to monitor blood glucose bupropion HCl 150 mg tablet extended release 24 hr 450 mg PO DAILY 30 Days Qty: 90 1RF atorvastatin 20 mg tablet 20 mg PO BEDTIME cholecalciferol (vitamin D3) 1,250 mcg (50,000 unit) capsule 50,000 unit PO Q7D Rx Instructions: Saturday modafinil 200 mg tablet 200 mg PO QAM [place] 3 mg/2.5 mL suspension for nebulization 3 mg INHALATION Q4H PRN (Reason: Shortness Of Breath) budesonide-formoterol [Symbicort] 160-4.5 mcg/actuation HFA aerosol inhaler 2 puff inhalation BID Incruse Ellipta 62.5 mcg/actuation blister with device 1 inh inhalation DAILY Combivent Respimat 20-100 mcg/actuation mist 1 puff inhalation Q6H PRN (Reason: Shortness Of Breath) Mounjaro 2.5 mg/0.5 mL pen injector See Rx Instructions .ROUTE .COMPLEX Rx Instructions: INJECT 0.5ML SUBCUTANEOUSLY EVERY 7 DAYS ON SATURDAY FOR 1 MONTH metoprolol succinate 50 mg tablet extended release 24 hr 50 mg PO DAILY Xarelto 20 mg tablet 20 mg PO QAM potassium chloride 20 mEq tablet extended release 20 meq PO QAM sennosides-docusate sodium [Senokot-S] 8.6-50 mg Tablet 1 tab PO DAILY magnesium citrate 100 mg Tablet 100 mg PO DAILY Referrals: Linn Rivers MD [Physician, Pulmonology] - 03/23/25 11:30 am Referral Note: Marguerite Wade FNP [Primary Care Provider, Family Practice] - 03/25/25 10:00 am Referral Note: Discharge Diet: Cardiac Discharge Activity: Increase activity as tolerated, Limit activity as instruc mabel, Use walker/crutches as instructed, As per PT/OT instructions and Oxygen as instructed Patient Instructions: Prednisone (By mouth), Cefdinir (By mouth), How to Stop Smoking (DC), COPD (Chronic Obstructive Pulmonary Disease) (GEN), Fall Prevention (GEN), Opioid Safety, Patient Portal & [facility] Instructions Activity Restrictions/Additional Instructions: Complete prednisone taper and antibiotic course for COPD observation follow-up with your primary doctor for reassessment and referral is requested for you for pulmonology. Please decrease your nocturnal oxygen rate to 2 L. Target oxygen saturation 88 to 92% avoid oxygen levels start too high to avoid carbon dioxide retention. Keep your walker with you at all times when walking. Prevent falls. Discharge Attestations Time Spent in Discharge Care*: greater than 30 min Quality Metrics Clinical Quality Measures [ No reported AMI, CVA or VTE this stay] Coding Level of Care Code 01828 Total time (in minutes) for Discharge: 45 Diagnoses Respiratory failure with hypoxia and hypercapnia J96.91; J96.92 Encephalopathy acute G93.40
== END 2025-03-19 12:20 | disposition home health service (06) | DRG 189 ==
LOC: ER 11:53 → ER IP 13:01 → MEDSURG 16:39
PROVIDERS: Admitting Provider Internal Medicine; Emergency Provider Student in an Organized Health Care Education/Training Program; PCP Nurse Practitioner Family; Visit Provider Internal Medicine
DX: J96.02 Acute respiratory failure with hypercapnia (principal); G93.41 Metabolic encephalopathy; I48.20 Chronic atrial fibrillation, unspecified; I50.32 Chronic diastolic (congestive) heart failure; J96.01 Acute respiratory failure with hypoxia; J44.9 Chronic obstructive pulmonary disease, unspecified; I11.0 Hypertensive heart disease with heart failure; E78.5 Hyperlipidemia, unspecified; E11.51 Type 2 diabetes mellitus with diabetic peripheral angiopathy without gangrene; M35.00 Sjogren syndrome, unspecified; F41.1 Generalized anxiety disorder; F17.210 Nicotine dependence, cigarettes, uncomplicated; F43.12 Post-traumatic stress disorder, chronic; F31.9 Bipolar disorder, unspecified; G47.30 Sleep apnea, unspecified; Z79.4 Long term (current) use of insulin; Z79.85 Long-term (current) use of injectable non-insulin antidiabetic drugs; Z79.01 Long term (current) use of anticoagulants; Z87.440 Personal history of urinary (tract) infections; Z87.01 Personal history of pneumonia (recurrent)
CPT/HCPCS: 36415; 36416; 70450; 71045; 73502; 80048; 81001; 82803; 82962; 83735; 85025; 87086; 87637; 93005; 93971; 94640; 94660; 94664; 94760; 94762; 96365; 96367; 96372; 96375; 99291; J0456; J0696; J1815; J2919; J3475; J7050; J9999

== ENCOUNTER → 2025-03-23 11:06 | Outpatient (BNVA) | payer MEDICARE, MEDICAID, SELFPAY ==
[2024-12-29 12:09] VITALS: BP 124/70; BMI 35.9
== END ==
PROVIDERS: PCP Nurse Practitioner Family; Visit Provider Internal Medicine
DX: J44.89 Other specified chronic obstructive pulmonary disease (principal); J96.10 Chronic respiratory failure, unspecified whether with hypoxia or hypercapnia; G47.30 Sleep apnea, unspecified; Z87.09 Personal history of other diseases of the respiratory system; F17.210 Nicotine dependence, cigarettes, uncomplicated
CPT/HCPCS: 99204; 99496

== ENCOUNTER → 2025-04-23 08:52 | Outpatient (BNVA) | payer MEDICARE, MEDICAID, SELFPAY ==
[2024-12-29 12:09] VITALS: BP 124/70; BMI 35.9
== END ==
PROVIDERS: PCP Nurse Practitioner Family; Visit Provider Internal Medicine
DX: J44.89 Other specified chronic obstructive pulmonary disease (principal); J96.10 Chronic respiratory failure, unspecified whether with hypoxia or hypercapnia; G47.30 Sleep apnea, unspecified; Z99.81 Dependence on supplemental oxygen; Z87.09 Personal history of other diseases of the respiratory system; F17.210 Nicotine dependence, cigarettes, uncomplicated; T78.40XA Allergy, unspecified, initial encounter; X58.XXXA Exposure to other specified factors, initial encounter; J44.9 Chronic obstructive pulmonary disease, unspecified
CPT/HCPCS: 99214; Q3014